=== PATIENT | female | born 1965 | race African-American/Black ===

== ENCOUNTER 2022-10-12 12:36 | Outpatient (OUT) | payer MEDICARE, MEDICAID, SELFPAY ==
--- NOTE | 2022-10-12 13:44 | CONS_ITS ---
CONSULTATION DATE: ??10/12/2022 TO:? [facility] HISTORY:? Patient returns today complaining of 5-7/10 pain in her knees bilaterally, worse on the left than the right side, sharp in character, which increased with activities such as standing, walking and performing transitioning maneuvers.? She reports any kind of weight bearing maneuver is quite painful.? Being sedentary for even short periods of time causes a fair amount of stiffness in the knee joints bilaterally.? Upon ambulating, her stiffness improves, but her pain still persists with weight bearing maneuvers.? She denies any change in bowel and bladder habits or new sensorimotor changes in the lower extremities EXAM:? Notable for patient having weakness of her right quadriceps, iliopsoas and anterior tibialis.? Depressed right patellar reflex.? Straight leg raise is negative.? She has no consistent with myelopathy involving the lower extremities.? She did have crepitus of both knee joints, surrounding soft tissue tenderness is noted, especially on the left side.? She had a fair amount of spasm of her left hamstring and gastrocnemius muscle.? I could not appreciate any signs consistent with ligamental laxity on today?s visit. IMPRESSION:? Our impression is patient has chronic pain secondary to bilateral knee joint pain secondary to osteoarthrosis.? She has an appointment with [facility] in the near future to address the same.? I have asked her to increase the use of Zanaflex 4 mg pills, one-quarter to one-half in the morning and one pill at bedtime.? I have asked her to also continue the use of oxycodone 5 mg b.i.d. p.r.n.? She reports the use of this medication does improve her pain symptoms, improves her quality of life and, at times, her sleep pattern and she denies side effects.? Will see the patient back in the office in approximately three months? time or sooner if needed. As part of providing excellent, safe, comprehensive care, the following was completed at our patient's visit: 1. A medication reconciliation and review to ensure accurate knowledge of current/active medications, including asking our patients to inform us about any [id number] medications or herbal remedies/nutritional supplements/alternative remedies. 2. A review to specifically ensure our patients have had annual screening for: elevated body mass index (BMI, see intake chart for exact total), tobacco use, screening for depression, and screening for unhealthy alcohol use.? When screening is concerning, patients are provided with education and the specific recommendation to discuss the concerning health issue and treatment options with their primary care provider. MEGAN
== END 2022-10-12 12:37 | disposition home or self-care (01) ==
LOC: PM 12:37
PROVIDERS: Visit Provider Anesthesiology Pain Medicine
DX: G89.29 Other chronic pain (principal); M25.561 Pain in right knee; M25.562 Pain in left knee; M17.0 Bilateral primary osteoarthritis of knee
CPT/HCPCS: G0463

== ENCOUNTER 2022-12-07 11:18 | Outpatient (OUT) | payer MEDICARE, MEDICAID, SELFPAY ==
--- NOTE | 2022-12-07 10:41 | P.CN_ITS ---
Consult Note: HPI Data of Consult Patient: known to practice within the last 3 years Requesting Physician: Natalia Lou NP Primary Care Provider: Non-Staff Physician, Consult Narrative Reason for consult: f/u Narrative: Eddie Mckee a pleasant 57 year old female presents for evaluation and management of chronic low back and bilateral knee pain. Patient has been following with medical laboratory specialist who plans to do bilateral TKAs after patient loses 45lbs. Patient is actively working towards weight loss with diet and exercise but is severly limited with activity due to pain. Todays DIXIE 54% with severe pain, pain with lifting, pain with walking, pain preventing her for standing longer than 10 mins, pain impacting social life, pain impacting travel. Patient is currently on a home exercise program and has recently completed PT. Patient would like to discuss alternative approaches to knee pain until she can have surgery cc:: CC: Natalia Lou NP Review of Systems ROS Status of ROS 10 or more systems reviewed and unremarkable except as noted in history and below Musculoskeletal Reports: back pain, joint pain (bilateral knee pain) and limite d range of motion Meds Home Medications and Allergies Home Medications Medication Instructions Recorded Confirmed Type albuterol sulfate 90 mcg/actuation 2 inh inhalation Q6H PRN shortness 10/18/22 10/18/22 History aerosol inhaler (Ventolin HFA) of breath bupropion HCl 150 mg tablet,12 hr 150 mg PO BID 10/18/22 10/18/22 History sustained-release (Wellbutrin SR) calcium carbonate 500 mg-vitamin 1 tab PO BID 10/18/22 10/18/22 History D3 5 mcg (200 unit) tablet (Calcium 500 + D) duloxetine 30 mg capsule,delayed 30 mg PO DAILY 10/18/22 10/18/22 History release (Cymbalta) multivitamin (Daily Multi-Vitamin 1 tab PO DAILY 10/18/22 10/18/22 History tablet) spironolactone 25 mg tablet 25 mg PO DAILY 10/18/22 10/18/22 History tizanidine 4 mg tablet 4 mg PO BEDTIME PRN spasm 10/18/22 10/18/22 History zolpidem 10 mg tablet (Ambien) 10 mg PO BEDTIME 10/18/22 10/18/22 History hydrocodone 5 mg-acetaminophen 325 1 tab PO BID PRN pain #60 tabs 12/07/22 Rx mg tablet Allergies Allergy/AdvReac Type Severity Reaction Status Date / Time Penicillins Allergy Verified 10/18/22 15:51 prochlorperazine Allergy Verified 10/18/22 15:51 [From Compazine] Exam Constitutional Documenting provider has reviewed patient's vital signs: yes Common normals: no apparent distress, oriented x3, healthy appearing, alert and well nourished General appearance: cooperative Nutritional appearance: obese HENMT Common normals: normocephalic, hearing grossly normal bilaterally and moist oral mucous membranes Head and scalp: normocephalic Eye Common normals: PERRL Pupil: PERRL Neck & C-Spine Common normals: full ROM General: normal visual inspection Chest Common normals: inspection of chest normal Respiratory Common normals: normal respiratory effort, no retractions and no use of accessory muscles Back & Pelvis Thoracic spine/upper back: ROM limited, pain with ROM and paraspinal muscle tenderness Lumbar spine/lower back: ROM limited, pain with ROM and paraspinal muscle tenderness Sacroiliac joints: SI joints normal Extremity Common normals: normal to inspection Right lower extremity: knee joint (increase in diameter, pain and limited ROM) Left lower extremity: knee joint (increase in diameter, pain and limited ROM) Neuro Common normals: oriented x3, CN's II-XII intact bilaterally, moves all extremities, no focal motor deficits, no sensory deficits noted and deep tendon reflexes 2+ bilaterally Sensorium/orientation: alert Speech: speech normal Gait (neuro): antalgic Motor exam: no movement abnormalities noted and strength abnormal (3/5 BLE strength, no change in sensation) Psych Common normals: mental status grossly normal, thought process normal, cooperative, affect normal, speech normal and activity/motor behavior normal Speech: normal speech Thought process: normal thought process Results Additional Findings Additional findings: I have checked an OARRS report on this patient today and there are no aberrancies noted in the prescribing history.?? A drug screen was completed and reviewed within the last year, and if there has not been a drug screen completed we ordered one today to monitor higher risk, state monitored pain medication use. Assessment and Plan Assessment and Plan (1) Knee osteoarthritis: (2) Lumbar spondylosis: Assessment and Plan: -plan to repeat L2-3 L4-5 RFA in the future as back pain has returned, pt would like to focus on knee pain at this time (3) Chronic pain syndrome: Assessment and Plan: -encouraged discussion of increasing duloxetine with PCP as this medication has shown pain relief properties at higher doses (4) Muscle spasm: Assessment and Plan: continue tizanidine 4mg PRN muscle spasms (5) Chronic prescription opiate use: Assessment and Plan: I feel these medications are improving the patient's quality of life and allow them to tolerate activities of daily living as well as participate in recreational activity.? The patient does not report intolerable side effects. The patient is NOT opioid naive and non-pharmacologic and non-opioid treatment has failed to significantly relieve the patient's pain and improve functionality. The patient has a diagnosis that is related to a somatic or visceral pain etiology.?? I reviewed with the patient the potential risks and side effects with the use of?opioid medications including but not limited to respiratory depression,?sedation, and even . I verified the patient has access to naloxone should? these effects occur. I advised the patient to avoid the use of any other?sedation substances including alcohol, THC, and benzodiazepines while? taking opioid medications due to the risk of compounding side effects and?detrimental outcomes. I reviewed the FITTING ROOM [employer]OCIATE, pain treatment agreement, urine?drug screen, and opioid start talking forms. The patient was advised to let? their family know they had Naloxone in case they would need to administer the medication.? -rotate from oxycodone-acetaminophen to hydrocodone-acetaminophen 5-325mg BID PRN Pain, do not use with ambien -naloxone discussed and prescribed -will discuss effects of rotation at next office visit, with hope to see more pain benefit (6) Obesity: Assessment and Plan: Patient actively working towards weight loss, meeting with a merchandise flow team member and doing water therapy Patient to lose 45lbs to be a candidate for bilateral knee surgery The patient was counseled that proper dietary changes and consistent participation in a home exercise plan can lead to weight loss. Weight loss can help to improve functionality in patients with chronic pain.? Plan -bilateral genicular NB with intent of thermal RFA as patient is not a candidate for knee surgery at this time due to weight, pt actively working towards weight loss. Continue home exercise program. Recent steroid injections in knees have not provided pain relief. f/u after procedure
== END 2022-12-07 11:19 | disposition home or self-care (01) ==
PROVIDERS: Visit Provider Nurse Practitioner
DX: M17.0 Bilateral primary osteoarthritis of knee (principal); M47.816 Spondylosis without myelopathy or radiculopathy, lumbar region; G89.4 Chronic pain syndrome; Z79.899 Other long term (current) drug therapy; M62.838 Other muscle spasm
CPT/HCPCS: G0463

== ENCOUNTER 2023-02-14 07:17 | Outpatient (OUT) | payer MEDICARE, MEDICAID, SELFPAY | END 2023-02-14 07:33 | disposition home or self-care (01) | PROVIDERS: Visit Provider Nurse Practitioner | DX: Z76.0 Encounter for issue of repeat prescription (principal) ==

== ENCOUNTER 2023-03-13 09:31 | Day surgery (SDC) | payer MEDICARE, MEDICAID, SELFPAY ==
[2023-03-13 10:20] VITALS: BP 158/84; PULSE 91; RESP 16; TEMP 36.2; O2SAT 98
[2023-03-13] MEDS: BUPIVACAINE HCL 0.25% PF 25 MG/10 ML VIAL INJ (11:08)
[2023-03-13 11:13] VITALS: BP 141/64; PULSE 94; RESP 18; O2SAT 100
[2023-03-13 11:19] VITALS: BP 125/57; PULSE 85; RESP 22; O2SAT 100
--- NOTE | 2023-03-13 11:57 | P.ON_ITS ---
Date of procedure: 03/13/23 Pre-op diagnosis: Bilateral knee osteoarthritis Post-op diagnosis: same as pre-op Procedure: Bilateral Genicular Nerve Block PREOPERATIVE DIAGNOSIS: Pain secondary to knee pain, osteoarthritis, osteoarthrosis/degenerative joint disease. POSTOPERATIVE DIAGNOSIS--the same. SOLUTION USED FOR INJECTION: Marcaine 0.25%. IMMEDIATE COMPLICATIONS: None. PROCEDURE: After informed consent was obtained from the patient, brought to the OR, placed in the supine position. Skin overlying the area was prepped and draped in sterile fashion. Subsequently, a 25 gauge spinal needle was inserted over the inferior medial genicular nerve. Landmarks were identified under fluoroscopy. Needle tip advanced until the desired location was achieved, at which point we ruled out intravascular or intraneural needle tip placement. 1 mL of solution was injected. This procedure was performed in a similar fashion at the superior medial and superior lateral branches of the genicular nerve. Throughout the procedure, no indication of intravascular or intraneural needle t ip placement or injection. Post procedurally, needle removed. Patient tolerated the procedure with no complications, transferred to the recovery room in stable condition. She will be discharged home after meeting criteria. Patient informed to keep a pain diary for the first two hours post procedurally. Anesthesia: Local Surgeon: Jessica Hernandez Condition: stable
== END 2023-03-13 11:27 | disposition home or self-care (01) ==
LOC: SURGOUT 09:33
PROVIDERS: Visit Provider Anesthesiology Pain Medicine
DX: M17.0 Bilateral primary osteoarthritis of knee (principal); M25.561 Pain in right knee; M25.562 Pain in left knee
CPT/HCPCS: 64454

== ENCOUNTER 2023-03-29 10:58 | Outpatient (OUT) | payer MEDICARE, MEDICAID, SELFPAY ==
--- NOTE | 2023-03-29 11:03 | P.CN_ITS ---
Consult Note: HPI Data of Consult Patient: known to practice within the last 3 years Requesting Physician: Natalia Lou NP Primary Care Provider: Non-Staff Physician, MD Consult Narrative Reason for consult: f/u Narrative: Eddie Mckee a pleasant 57 year old female presents for evaluation and management of chronic bilateral knee pain. Patient has OA of bilateral knees and is pending surgical intervention but is working towards weight loss before she can have this surgery. Patient has underwent bilateral genicular nerve blocks with greater than 80% pain relief and functional improvement immediately after and hours following, tapering down to 50% cc:: CC: Natalia Lou NP Review of Systems ROS Status of ROS 10 or more systems reviewed and unremark able except as noted in history and below Musculoskeletal Reports: back pain, extremity pain and joint pain Meds Home Medications and Allergies Home Medications Medication Instructions Recorded Confirmed Type albuterol sulfate 90 mcg/actuation 2 inh inhalation Q6H PRN shortness 10/18/22 03/13/23 History aerosol inhaler (Ventolin HFA) of breath bupropion HCl 150 mg tablet,12 hr 150 mg PO BID 10/18/22 03/13/23 History sustained-release (Wellbutrin SR) calcium carbonate 500 mg-vitamin 1 tab PO BID 10/18/22 03/13/23 History D3 5 mcg (200 unit) tablet (Calcium 500 + D) duloxetine 30 mg capsule,delayed 30 mg PO DAILY 10/18/22 03/13/23 History release (Cymbalta) multivitamin (Daily Multi-Vitamin 1 tab PO DAILY 10/18/22 03/13/23 History tablet) spironolactone 25 mg tablet 25 mg PO DAILY 10/18/22 03/13/23 History tizanidine 4 mg tablet 4 mg PO BEDTIME PRN spasm 10/18/22 03/13/23 History zolpidem 10 mg tablet (Ambien) 10 mg PO BEDTIME 10/18/22 03/13/23 History hydrocodone 5 mg-acetaminophen 325 1 tab PO BID PRN pain #60 tabs 12/07/22 03/13/23 Rx mg tablet naloxone 4 mg/actuation nasal 4 mg intranasal Q3M PRN opioid 12/07/22 03/13/23 Rx spray (Narcan) overdose #2 ea oxycodone-acetaminophen 5 mg-325 1 tab PO BID PRN pain #60 tabs 12/14/22 1 05/13/22 Rx mg tablet (Percocet) oxycodone-acetaminophen 5 mg-325 1 tab PO BID PRN pain #60 tabs 01/17/23 03/13/23 Rx mg tablet (Percocet) oxycodone-acetaminophen 5 mg-325 1 tab PO BID PRN pain #60 tabs 02/14/23 03/13/23 Rx mg tablet (Percocet) oxycodone-acetaminophen 5 mg-325 1 tab PO DAILY PRN pain #30 tabs 03/20/23 Rx mg tablet (Percocet) oxycodone-acetaminophen 5 mg-325 1 tab PO BID PRN pain #60 tabs 03/27/23 Rx mg tablet (Percocet) Allergies Allergy/AdvReac Type Severity Reaction Status Date / Time Penicillins Allergy Verified 10/18/22 15:51 prochlorperazine Allergy Verified 10/18/22 15:51 [From Compazine] Exam Constitutional Documenting provider has reviewed patient's vital signs: yes Common normals: no apparent distress, oriented x3, healthy appearing, alert and well nourished General appearance: cooperative Nutritional appearance: obese HENMT Common normals: normocephalic, hearing grossly normal bilaterally and moist oral mucous membranes Head and scalp: normocephalic Eye Common normals: PERRL Pupil: PERRL Neck & C-Spine Common normals: full ROM General: normal visual inspection Chest Common normals: inspection of chest normal Respiratory Common normals: normal respiratory effort, no retractions and no use of accessory muscles Back & Pelvis Thoracic spine/upper back: ROM limited, pain with ROM and paraspinal muscle tenderness Lumbar spine/lower back: ROM limited, pain with ROM and paraspinal muscle tenderness Sacroiliac joints: SI joints normal Extremity Common normals: normal to inspection Right lower extremity: knee joint (increase in diameter, pain and limited ROM) Left lower extremity: knee joint (increase in diameter, pain and limited ROM) Neuro Common normals: oriented x3, CN's II-XII intact bilaterally, moves all extremities, no focal motor deficits, no sensory deficits noted and deep tendon reflexes 2+ bilaterally Sensorium/orientation: alert Speech: speech normal Gait (neuro): antalgic Motor exam: strength 5/5 throughout and no movement abnormalities noted Psych Common normals: mental status grossly normal, thought process normal, cooperative, affect normal, speech normal and activity/motor behavior normal Speech: normal speech Thought process: normal thought process Results Additional Findings Additional findings: I have checked an OARRS report on this patient today and there are no aberrancies noted in the prescribing history.?? A drug screen was completed and reviewed within the last year, and if there has not been a drug screen completed we ordered one today to monitor higher risk, state monitored pain medication use. As part of providing excellent, safe, comprehensive care, the following was completed at our patient's visit: 1. A medication reconciliation and review to ensure accurate knowledge of current/active medications, including asking our patients to inform us about any [id number] medications or herbal remedies/nutritional supplements/altern ative remedies. 2. A review to specifically ensure our patients have had annual screening for: elevated body mass index (BMI), tobacco use, screening for depression, and screening for unhealthy alcohol use. When screening is concerning, patients are provided with education and the specific recommendation to discuss the concerning health issue and treatment options with their primary care provider. Assessment and Plan Assessment and Plan (1) Knee osteoarthritis: Qualifiers: Osteoarthritis type: primary Laterality: bilateral Qualified Code(s): M17.0 - Bilateral primary osteoarthritis of knee (2) Chronic prescription opiate use: (3) Lumbar spondylosis: (4) Chronic pain syndrome: (5) Muscle spasm: (6) Obesity: Qualifiers: Obesity type: due to excess calories Obesity classification: unspecified obesity classification Serious obesity comorbidity presence: unspecified whether serious comorbidity present Qualified Code(s): E66.09 - Other obesity due to excess calories Plan difficult to assess pain at today's visit, patient has pain throughout whole back and hips, bilateral knees. hyperalgesia to touch continue current medications continue with weight loss efforts working towards knee surgery did not have sustained response to lumbar RFAs in the past no recent imaging, patient can discuss her pain and care plan with Dr Hernandez at f/u visit
== END 2023-03-29 10:59 | disposition home or self-care (01) ==
LOC: PM 10:59
PROVIDERS: Visit Provider Nurse Practitioner
DX: M17.0 Bilateral primary osteoarthritis of knee (principal); Z79.891 Long term (current) use of opiate analgesic; M47.816 Spondylosis without myelopathy or radiculopathy, lumbar region; G89.4 Chronic pain syndrome; M62.838 Other muscle spasm; E66.09 Other obesity due to excess calories
CPT/HCPCS: G0463

== ENCOUNTER 2023-04-12 07:30 | Day surgery (SDC) | payer MEDICARE, MEDICAID, SELFPAY ==
[2023-04-12 07:40] VITALS: BP 150/86; PULSE 100; RESP 18; TEMP 36.3; O2SAT 97
[2023-04-12] MEDS: 0.9 % SODIUM CHLORIDE 500 ML IV (07:47)
[2023-04-12] MEDS: BUPIVACAINE HCL 0.25% PF 25 MG/10 ML VIAL 4 ML INJ (08:43)
[2023-04-12] MEDS: LIDOCAINE HCL 2% 400 MG/20 ML MDV 5 ML INJ (08:44)
[2023-04-12] MEDS: METHYLPREDNISOLONE ACETATE 40 MG/ML VIAL INJ (08:44)
[2023-04-12 08:46] VITALS: BP 144/91; PULSE 89; RESP 17; TEMP 36.3; O2SAT 98
[2023-04-12 08:47] VITALS: BP 147/88; PULSE 90; RESP 16; TEMP 36.3; O2SAT 98
--- NOTE | 2023-04-12 09:11 | W.PM.PROCNOT ---
Date of procedure: 04/12/23 Pre-op diagnosis: Right knee pain/osteoarthritis Post-op diagnosis: same as pre-op Procedure: Right knee genicular nerve Radiofrequency ablation Under fluoroscopic guidance Rhizotomy was created using radio frequency ablation at 80?C for 90 seconds 1 to 2 lesions created at each site. Post lesioning injection of 2 mL each of 0.25% Marcaine and 2% lidocaine with Depo-Medrol 40mg. 0.5 to 1 mL injected at each site Anesthesia local 2% lidocaine for local anesthetic Timeout process compliant After informed consent obtained.Patient brought to the procedure room placed in the supine position skin overlying the area was prepped and draped in a sterile fashion using betadine. 25 gauge needle was used to create a skin wheal over each of the targeted areas utilizing 2% lidocaine. A rhizotomy needle with a 10 mm active tip was inserted over each of the anesthetized areas and directed towards each of the genicular nerves accomplished under fluoroscopic guidance. after encountering the same we had positive sensory stimulation, negative motor stimulation was noted. lesions were then created. Post lesioning, steroid solution was injected needles removed. Patient was transferred to recovery room in stable condition to be discharged home after meeting criteria. Anesthesia: MAC Surgeon: Jessica Hernandez Condition: stable
--- OUTSIDE RECORDS SUMMARY | 2023-04-12 10:24 | XMS_ITS | CCD ---
Author Name Unknown Address [address] [place] [address] Organization [facility] Care Team Providers Care Deli Clerk Name Role Phone ELGAFY, HOMERO K Unavailable Unavailable ELGAFY, HOMERO K Unavailable Unavailable IMM, СВЕТЛАНА P Unavailable Unavailable IMM, СВЕТЛАНА P Unavailable Unavailable ELGAFY, HOMERO K Unavailable Unavailable ELGAFY, HOMERO K Unavailable Unavailable SELF, REFERRED Unavailable Unavailable IMM, СВЕТЛАНА P Unavailable Unavailable Imm, Светлана Carlisle Unavailable Unavailable VITA KING Unavailable Unavaila KALA Ramires Primary Care Physician [phone] GEMA ., DR CADENCE Hsu Attending Unavailable LUKE ., DR CADENCE Hsu Admitting Unavailable PETERS ., [place] Consulting [facility] Consulting Unava ilable LUKE ., DR CADENCE Hsu Attending Unavailable [facility] PETERS ., [place] Consulting Unavailable LUKE ., DR CADENCE Hsu Admitting [facility]available [facility] EDITH, DR SOTOMAYOR Attending Unavailable EDITH, DR SOTOMAYOR Admitting Unavailable PAY ., DR GRIMM Consulting Unavailable EDITH, DR SOTOMAYOR Consulting Unavailable TROTTI, GIROLAMO Consulting [facility]available [facility] MARKER ., DR MENDOZA Attending Unavailable MARKER ., DR MENDOZA Admitting Unavailable MARKER ., DR MENDOZA Consulting Unavailable RISHABH MORENO Consulting [facility]available [facility] PETERS ., [place] Consulting Unavailable LUKE ., DR CADENCE Hsu Admitting Unavailable LUKE ., DR CADENCE Hsu Attending Unavailable [facility] Un[facility] PETERS ., [place] Consulting Unavailable LUKE ., DR CADENCE Hsu Attending Unavailable LUKE ., DR CADENCE Hsu Admitting Unavailable LUKE ., DR CADENCE Hsu Consulting Unavailable [facility] LUKE ., DR CADENCE Hsu Attending Unavailable LUKE ., DR CADENCE Hsu Admitting Unavailable [facility] LORRAINE .[place] Consulting Unavailable LUKE ., DR CADENCE Hsu Attending Unavailable LUKE ., DR CADENCE Hsu Admitting Unavailable LUKE ., DR CADENCE Hsu Consulting Unavailable LUKE ., DR CADENCE Hsu Attending Unavailable [facility] LUKE ., DR CADENCE Hsu Admitting Unavailable [facility] LAKSHMIPATHY ., NARENDRANATH Admitting Emmanuelle vailable LAKSHMIPATHY ., NARENDRANATH Attending Emmanuelle vailable Kala Conte Primary Care Provider Judson White Unavailable Unavailable BEATA, KALA BLANCHARD Primary Care Unavailable JAMIE YAÑEZ Attending Unavailabl e CONTE, KALA SANTO Primary Care Unavailable JAMIE YAÑEZ Referring Unavailabl e Adamowicz II, Aníbal J Admitting Unavaila ble Adamowicz II, Aníbal J Attending Unavaila ble Conte, Kala Primary Care Unavailable Conte, Kala Referring Unavailable Timmis, Christine H Referring Unavailable Timmis, Christine H Attending Unavailable Timmis, Christine H Admitting Unavailable Allergies Allergy Classification Reported Allergen(s) Allergy Type Date of Onset Reaction(s) Facility (1 source) penicillin Drug Allergy 6 [facility] (4 sources) prochlorperazine; Translations: [Compazine] Drug Allergy 4 [facility] (10 sources) Penicillins; Translations: [penicillins] Drug allergy 4 Eruption of skin (disorder), Hives [facility] (4 sources) Prochlorperazine; Translations: [prochlorperazine] Drug Allergy 2 Unknown (qualifier value), Eruption of skin (disorder) [facility] (4 sources) Prochlorperazine; Translations: [PROCHLORPERAZINE EDISYLATE] Drug Allergy 4 Mental Status Change [facility] [place] (1 source) Prochlorperazine Drug Allergy 2 [facility] Repository Medications Current Medications Medication Drug Class(es) Dates Sig (Normalized) Sig (Original) acetaminophen 325 mg / oxyCODONE hydrochloride 5 mg oral tablet (6 sources) Opioid Agonist Start: 04-11-2017 End: 01-20-2021 take 1 tablet by mouth twice daily Percocet 5 mg-325 mg oral tablet 1 tab(s), Oral, BID, Refill(s) 0 Start Date: 01/25/21 Status: Ordered take 1 tablet by shakir th every six hours as needed oxyCODONE-acetaminophen 5-325 mg tablet Take 1 tablet by mouth every 6 hours as needed. 0 Active Comment on above: Take 1 tablet by shakir th every 6 hours as needed. sensor 200 actuat albuterol 0.09 mg/actuat dry powder inhaler (1 source) beta2-Adrenergic Agonist Start: 1 Albuterol Sulfate Active 2 INH INHALATION Four times daily January 20, 2021 12:00am 12 hr buPROPion hydrochloride 150 mg extended release oral tablet (2 sources) Aminoketone Start: 1 take 1 tablet by mouth twice daily Wellbutrin SR 150 mg Tab-ER 150 mg = 1 tab(s), Oral, BID, Refills(s) 0 Start Date: 01/25/21 Status: Ordered Start: 01-20-2021 take 1 tablet by shakir th twice daily Bupropion Hcl (Wellbutrin Xl) 150 mg Tablet Extended Release 24 Hr Active 150 MG PO Twice daily January 20, 2021 12:00am calcium carbonate 1250 mg oral tablet (1 source) Start: 01-25-2021 take 1 tablet by mouth twice daily Os-Braden 500 oral tablet 1,250 mg = 1 tab(s), Oral, BID, Refills(s) 0 Start Date: 01/25/21 Status: Ordered Calcium Carbonate-Vitamin D3 (Os-Braden 500 + D3) 500 mg(1,250mg) -200 unit Tablet (1 source) Start: 01-20-2021 take 1 tablet by mouth twice daily Calcium Carbonate-Vitamin D3 (Os-Braden 500 + D3) 500 mg(1,250mg) -200 unit Tablet Active 1 TAB PO Twice daily January 20, 2021 12:00am Cymbalta 30 mg Cap-DR (1 source) Start: 01-25-2021 take 1 capsule by mouth once daily Cymbalta 30 mg Cap-DR 30 mg, Oral, Daily, Refills(s) 0 Start Date: 01/25/21 Status: Ordered DULoxetine 30 mg delayed release oral capsule (1 source) Serotonin and Norepinephrine Reuptake Inhibitor Start: 01-20-2021 take 1 capsule by mouth once daily Duloxetine (Cymbalta) 30 mg Capsule,Delayed Release(Dr/Ec) Active 30 MG PO Daily January 20, 2021 12:00am estradiol 0.1 mg/g vaginal cream (1 source) Start: 04-14-2021 estradiol 0.1 mg/g vaginal cream See Instructions, apply pea-size amount with fingertips vaginally nightly x 2 wks then 3x per week thereafter, # 42.5 gm, Refills(s) 11, Pharmacy: [id number], 163, cm, 04/14/21 10:37:00 EST, Height/Length Dosing, 148, kg, 04/14/21 10:37:00... Start Date: 04/14/21 Status: Ordered 120 actuat fluticasone propionate 0.22 mg/actuat metered dose inhaler (1 source) Corticosteroid Start: 01-25-2021 take 1 puff(s) by inhalation twice daily Flovent HFA 220 Aerosol = 1 puff(s), Inhalation, BID, Refills(s) 0 Start Date: 01/25/21 Status: Ordered fluticasone 0.05 mg/inh Nasal [place] (1 source) Start: 04-14-2021 fluticasone 0.05 mg/inh Nasal [place] Refill(s) 0 Start Date: 04/14/21 Status: Ordered ibuprofen 800 mg oral tablet (4 sources) Nonsteroidal Anti-inflammatory Drug Start: 04-11-2017 Ibuprofen Active 800 MG PO As Directed April 11, 2017 1:00am Comment on above: Take 800 mg by mouth every 6 hours as needed. Multivitamin (Multiple Vitamin) Tablet (1 source) Start: 01-20-2021 take 1 tablet by mouth twice daily Multivitamin (Multiple Vitamin) Tablet Active 1 TAB PO Twice daily January 20, 2021 12:00am Multivitamin, Therapeutic w/ Minerals (1 source) Start: 01-25-2021 take 1 tablet by mouth once daily Multivitamin, Therapeutic w/ Minerals 1 tab(s), Oral, Daily, Refill(s) 0 Start Date: 01/25/21 Status: Ordered tiZANidine 4 mg oral capsule (2 sources) Central alpha-2 Adrenergic Agonist Start: 01-25-2021 take 1 capsule by mouth once daily tizanidine 4 mg oral capsule 4 mg = 1 cap(s), Oral, Daily, Refills(s) 0 Start Date: 01/25/21 Status: Ordered Start: 01-20-2021 take 4 mg by mouth o nce daily at bedtime Tizanidine Active 4 MG PO Daily at bedtime January 20, 2021 12:00am zolpidem tartrate 10 mg oral tablet (5 sources) gamma-Aminobutyric Acid-ergic Agonist Start: 04-11-2017 take 1 tablet by mouth once daily at bedtime as needed for sleep zolpidem 10 mg oral tablet 10 mg = 1 tab(s), Oral, Once a day (at bedtime), PRN for sleep, Refills(s) 0 Start Date: 01/25/21 Status: Ordered Comment on above: Take by mouth at bedtime as needed. Completed/Discontinued Medications Medication Drug Class(es) Dates Sig (Normalized) Sig (Original) baclofen 10 mg oral tablet (3 sources) gamma-Aminobutyric Acid-ergic Agonist Start: 08-07-2017 baclofen (LIORESAL) 10 mg tablet Take 10 mg by mouth. 0 08/07/2017 Active Comment on above: Take 10 mg by mouth. 5 ml bupivacaine hydrochloride 5 mg/ml injection (2 sources) Amide Local Anesthetic Start: 11-20-2022 End: 11-20-2022 BUPivacaine (PF) 0.5 % (5 mg/mL) 4 mL injection calcium carbonate 1250 mg / cholecalciferol 200 unt oral tablet (3 sources) Vitamin D Start: 08-07-2017 take 1 tablet by mouth once OS-BRADEN 500+D 500 mg(1,250mg) -200 unit per tablet Take 1 tablet by mouth. 0 08/07/2017 Active Comment on above: Take 1 tablet by shakir th. citalopram 10 mg oral tablet (3 sources) Serotonin Reuptake Inhibitor take 1 tablet by mouth once daily citalopram hydrobromide (CELEXA) 10 mg tablet Take 10 mg by mouth once daily. 0 Active Comment on above: Take 10 mg by mouth once daily. dicyclomine hydrochloride 20 mg oral tablet (3 sources) Anticholinergic Start: 05-30-2017 take 1 tablet by mouth every six hours dicyclomine (BENTYL) 20 mg tablet Take 20 mg by mouth every 6 hours. 0 05/30/2017 Active Comment on above: Take 20 mg by mouth every 6 hours. furosemide 40 mg oral tablet (1 source) Loop Diuretic Start: 04-11-2017 End: 01-20-2021 take 40 mg by mouth twice daily Furosemide Discontinued 40 MG PO Twice daily April 11, 2017 1:00am January 20, 2021 10:59am 10 ml lidocaine hydrochloride 10 mg/ml injection (2 sources) Antiarrhythmic, Amide Local Anesthetic Start: 11-20-2022 End: 11-20-2022 lidocaine (PF) 10 mg/mL (1 %) 4 mL injection (XYLOCAINE) spironolactone 25 mg oral tablet (5 sources) Aldosterone Antagonist Start: 07-28-2017 take 1 tablet by mouth once daily spironolactone (ALDACTONE) 25 mg tablet Take 25 mg by mouth once daily. 0 07/28/2017 Active Start: 04-11-2017 take 25 mg by mouth twice daily Spironolactone Active 25 MG PO Twice daily April 11, 2017 1:00am Comment on above: Take 25 mg by mouth once daily. traZODone hydrochloride 50 mg oral tablet (3 sources) Serotonin Reuptake Inhibitor Start: 06-14-2017 traZODone (DESYREL) 50 mg tablet Take 50 mg by mouth. 0 06/14/2017 Active Comment on above: Take 50 mg by mouth. 1 ml triamcinolone acetonide 40 mg/ml injection (2 sources) Corticosteroid Start: 11-20-2022 End: 11-20-2022 triamcinolone acetonide 80 mg injection (KeNALog 40) WOMEN'S ONE DAILY 18 mg iron-400 mcg-500 mg Ca tab (3 sources) Start: 06-14-2017 WOMEN'S ONE DAILY 18 mg iron-400 mcg-500 mg Ca tab Take by mouth. 0 06/14/2017 Active Comment on above: Take by mouth. Problems Active Problems Problem Classification Problem Date Documented Da te Episodic/Chronic Abdominal pain (1 source) Right lower quadrant pain; Translations: [Right lower quadrant pain] 01-24-2021 Episodic Asthma (3 sources) Asthma; Translations: [Unspecified asthma with (acute) exacerbation] Onset: 04-20-2022 01-25-2021 Chronic Chronic kidney disease (1 source) Chronic kidney disease, unspecified; Translations: [CHRONIC KIDNEY DISEASE UNSPECIFIED] Onset: 09-06-2022 Chronic Deficiency and other anemia (2 sources) Anemia; Translations: [Anemia, unspecified] 01-25-2021 Episodic Deficiency and other anemia (1 source) Iron deficiency anemia; Translations: [Iron deficiency anemia, unspecified] 03-25-2021 Episodic Diabetes mellitus with complications (1 source) Type 2 diabetes mellitus with diabetic chronic kidney disease; Translations: [TYPE 2 DM W/DIABETIC CKD] Onset: 09-06-2022 Chronic Essential hypertension (1 source) Hypertensive disorder 01-25-2021 Chronic Genitourinary symptoms and ill-defined conditions (2 sources) Genuine stress incontinence; Translations: [Intermittent urinary incontinence] 04-14-2021 Chronic Genitourinary symptoms and ill-defined conditions (1 source) Proteinuria 04-14-2021 Episodic Headache; including migraine (1 source) Migraine 01-25-2021 Chronic Mood disorders (2 sources) Depressive disorder; Translations: [Major depressive disorder] 01-25-2021 Chronic Osteoarthritis (7 sources) Arthritis; Translations: [Bilateral primary osteoarthritis of knee] Onset: 01-23-2022 01-25-2021 Chronic Other aftercare (1 source) Other technician terminal and repeater (current) drug therapy; Translations: [OTH FDC CURRENT DRUG THERAPY] Onset: 09-06-2022 Episodic Other gastrointestinal disorders (1 source) Irritable bowel syndrome without diarrhea; Translations: [IRRITABLE BOWEL SYND W/O DIARRHEA] Onset: 09-06-2022 Chronic Other gastrointestinal disorders (1 source) Altered bowel function; Translations: [Other specified symptoms and signs involving the digestive system and abdomen] 01-24-2021 Episodic Other lower respiratory disease (1 source) Shortness of breath; Translations: [SHORTNESS OF BREATH] Onset: 09-06-2022 Episodic Other lower respiratory disease (4 sources) Dyspnea, unspecified; Translations: [DYSPNEA UNSPECIFIED] Onset: 06-08-2022 Episodic Other nervous system disorders (1 source) Other chronic pain; Translations: [Chronic pain of both knees] Onset: 11-20-2022 Chronic Other non-traumatic joint disorders (4 sources) Pain in right knee; Translations: [Pain in joint, lower leg] Onset: 10-21-2021 11-03-2022 Episodic Other non-traumatic joint disorders (2 sources) Pain in left knee; Translations: [PAIN IN LEFT KNEE] Onset: 10-21-2021 Episodic Other nutritional; endocrine; and metabolic disorders (1 source) Obesity 01-25-2021 Chronic Other nutritional; endocrine; and metabolic disorders (1 source) Morbid (severe) obesity due to excess calories; Translations: [MORBID SEVERE OBES D/T EXCESS BRADEN] Onset: 09-06-2022 Chronic Other nutritional; endocrine; and metabolic disorders (1 source) Body mass index (BMI) 50.0-59.9, adult; Translations: [BODY MASS INDEX BMI 50.0-59.9 ADULT] Onset: 09-06-2022 Chronic Other nutritional; endocrine; and metabolic disorders (1 source) Severe obesity; Translations: [Morbid (severe) obesity due to excess calories] 11-20-2022 Chronic Other upper respiratory disease (1 source) Allergic rhinitis 01-25-2021 Chronic Residual codes; unclassified (1 source) Insomnia 01-25-2021 Episodic Residual codes; unclassified (1 source) Peripheral edema 01-25-2021 Episodic Residual codes; unclassified (1 source) Other specified postprocedural states; Translations: [OTH SPECIFIED POSTPROCEDURAL STATES] Onset: 06-26-2022 Episodic Spondylosis; intervertebral disc disorders; other back problems (9 sources) Spondylosis without myelopathy or radiculopathy, lumbar region; Translations: [Other intervertebral disc degeneration, lumbar region] Onset: 10-25-2016 01-25-2021 Chronic Unclassified (2 sources) Unknown / UNK(Unknown) Onset: 10-25-2016 Unclassified (1 source) Other chronic pain / G89.29(ICD-10) Onset: 10-22-2016 Unclassified (2 sources) Low back pain / M54.5(ICD-10) Onset: 10-22-2016 Unclassified (1 source) Localized edema / R60.0(ICD-10) Onset: 10-22-2016 Unclassified (1 source) Allergy status to penicillin / Z88.0(ICD-10) Onset: 10-22-2016 Unclassified (1 source) Localized swelling, mass and lump, lower limb, bilateral / R22.43(ICD-10) Onset: 10-22-2016 Unclassified (1 source) Asymptomatic microscopic hematuria 04-14-2021 Unclassified (3 sources) COUGH, UNSPECIFIED; Translations: [COUGH, UNSPECIFIED] Onset: 04-20-2022 Unclassified (1 source) CHRN KIDNEY DISEASE STG 3 UNSP; Translations: [CHRN KIDNEY DISEASE STG 3 UNSP] Onset: 04-20-2022 Urinary tract infections (1 source) Recurrent urinary tract infection 04-14-2021 Episodic Past or Other Problems Problem Classification Problem Date Documented Da te Episodic/Chronic Benign neoplasm of uterus (3 sources) Uterine leiomyoma; Translations: [Leiomyoma of uterus, unspecified] Onset: 09-01-2013 09-01-2013 Episodic Deficiency and other anemia (1 source) Anemia, unspecified; Translations: [Anemia, unspecified] Onset: 10-07-2021 Episodic Deficiency and other anemia (1 source) Iron deficiency anemia, unspecified; Translations: [Iron deficiency anemia, unspecified] Onset: 10-07-2021 Episodic Other connective tissue disease (1 source) Arthrodesis status; Translations: [ARTHRODESIS STATUS] Onset: 10-25-2016 Episodic Other upper respiratory infections (1 source) Acute upper respiratory infection, unspecified; Translations: [ACUTE UP RESPIRATORY INFECTION UNS] Onset: 04-20-2022 Episodic Spondylosis; intervertebral disc disorders; other back problems (5 sources) Muscle spasm of back; Translations: [Intervertebral disc disorders with radiculopathy, lumbar region] Onset: 10-10-2021 Episodic Unclassified (1 source) COUGH, UNSPECIFIED; Translations: [COUGH, UNSPECIFIED] Onset: 09-04-2022 Results Test Name Value Interpretation Reference Range Facility Physician Referralon 023 Physician Referral [id number] Normal [facility] CNOVon 11-20-2022 CNOV Office Visit (ORTHMN ) FREDI MCKEE ([id number]) 1965 F U[place] Date Time Provider Department 11/20/22 10:00 AM JAMIE YAÑEZ During your visit today, we recorded the following information about you: Weight Height 149.1 kg 1.626 m Jamie Yañez PA-C 11/20/2022 4:50 PM Signed CONSULT ORTHOPAEDIC: KNEE PRIMARY CARE PHYSICIAN: Kala Conte REFERRING PROVIDER: No referring provider defined for this encounter. ASSESSMENT AND PLAN Impression: Bilateral Knee Severe Degenerative Osteoarthritis, Primary Obesity, BMI 56.40 Fredi is a 57 yo female with chronic bilateral knee pain and radiographic evidence of severe knee OA. We discuss maintaining conservative therapies until her health is better optimized in respect to her weight. She has worked with PCP in the past. Her Lbp is a barrier to exercise. She does not work with a urologist md. We discuss our Get Ready program. She is in agreement to this. We also discuss conservative therapy. She has had relief with injections in the past (last performed in April). Elected to perform bilateral CSIs. Please see separate procedure note for details. Aftercare discussed. She takes NSAIDs PRN and recommend she continue to use as needed given her recent creatinine. She should not be on NSAIDs prolonged. Physical therapy order has also been placed. After discussion with Fredi Mckee, continued non-operative management of physical therapy, injection(s), and referral to Get Ready program was chosen. The patient currently has had six months of unsuccessful non-operative treatment as outlined in the HPI below. The patient has been ordered: Physical therapy CONSULTS: Get Ready Program for weight management assistance. ACTIVE PROBLEM LIST Fibroid Uterus SUBJECTIVE CHIEF COMPLAINT: Knee Pain HPI: Fredi Mckee is a 57 year old patient here for evaluation and management of bilateral knee pain. Fredi Mckee has had progressive problems with the knee(s) constantly over the past 6 year(s) interfering with activities which include exercise, walking, rising from a sitting position, standing for prolonged periods of time, getting in and out of a car, and climbing stairs. Currently the pain in the joint is rated at 9 out of 10 with moderate activity. The pain is chronic and is located along the inside aspect and in the front. The pain is described as aching and severe. Relieving factors include rest. There is no specific incident that brought about this pain. Fredi Mckee also complains of stiffness. FUNCTIONAL STATUS: Walk a block or two on level ground (2.75 METs) Therapy to date - Ice or Heat: both OTC/Rx Medications (Topical/PO): Topical cream, she has not taken NSAIDs in the last month or so. 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 Fredi's estimated Length of Stay is 2 days (Inpatient candidate). Fredi's 30 day chance of readmission is 2.08%. Readmission Probability 2.08 % (within 30 days following surgery) Estimated LOS 2 days Discharge Disposition Probability D/C to Home 83.07 % D/C to SNF 16.93 % These calculations are based on the following factors: - 57 years of age - sex is not male - BMI of 56.4 kg/m2 - NarxCare score of 421 - 0 hospitalizations in the last 12 months - no history of heart disease - no history of diabetes - no history of COPD - no history of anemia - preoperative ambulation: independent community distances - 1 step(s) to enter home - bed location is on the first floor - bath location is on the first floor - caregiver is occassionally available 2-4 days / week - home is not more than 150 miles away - PROMIS-10 Mental Health T score 41-49 - Marital status: single REVIEW OF SYSTEMS: PAIN ASSESSMENT: See HPI. MUSCULOSKELETAL: See HPI. Risk Factors for Total Joint Arthroplasty (TJA) Obesity High Risk High: BMI > 40 Moderate: BMI 30-40 Normal: BMI < 30 Diabetes normal High: A1C > 8 Moderate: A1C 7-8 Normal: A1C < 7 Smoking normal High: Current smoker Normal: Non smoker Anemia normal High: Hgb < 11.5 (women) N/A: Hgb >= 11.5 (women) Nutritional Status normal High: Alb<3.4, or prealb<15, or serum transferrin<200, or total lymphocyte count<1500 Normal: normal labs COPD normal High: dx (more content not included)... Normal [facility] XR KNEE 4V AP/PA/LAT/MERCH B ILon 11-20-2022 XR KNEE 4V AP/PA/LAT/MERCH ARON * * *Final Report* * * DATE OF EXAM: Nov 20 2022 8:40AM AOX [id number] - XR KNEE 4V AP/PA/LAT/MERCH ARON / PROCEDURE REASON: multiple diagnoses * * * * Physician Interpretation * * * * HISTORY: Chronic pain of both knees Chronic pain of both knees Chronic pain of both knees . Bilateral knee pain and reduced mobility. Prominent pain at the knee caps. Prominent pain in Right knee. TECHNIQUE: XR KNEE 4V AP/PA/LAT/MERCH ARON COMPARISON: None RESULT: Marked [id number] medial compartment narrowing bilaterally with genu varus deformities. Tricompartmental osteophytes bilaterally. No fractures. No joint effusions. 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 No other significant abnormality. - IMPRESSION: MARKED DEGENERATIVE CHANGES IN THE MEDIAL COMPARTMENTS BILATERALLY Director Of Vendor Management: MARYB Transcribe Date/Time: Nov 20 2022 8:42A Dictated by : ERASMO AVLENTE MD This examination was interpreted and the report reviewed and electronically signed by: ERASMO VALENTE MD on Nov 20 2022 8:43AM EST [id number] Normal [facility] XR KNEE GENERAL 4V AP BOTH/P A BOTH/LAT/MERC BILATERALon 11-20-2022 [facility] [place] BNPon 09-05-2022 Natriuretic peptide B (Bld) [Mass/Vol] 29.0 pg/mL Normal <=900.0 [facility] Comment on above: Performed By: #### H STROPN, BNP, CMP ####[facility] [id number] [place], [place] [address]SnDr. Merlene Carr CBC AUTO DIFFon 09-05-2022 BASO # 0.1 103/ul Normal 0.0-0.1 [facility] Comment on above: Performed By: #### C BC #### [facility] [address] [address] [address] Merlene Carr Basophils/100 WBC (Bld) 0.5 % Normal 0.2-2.0 [facility] Comment on above: Performed By: #### C BC #### [facility] [address] [address] [address] Merlene Carr EO # 0.6 103/ul Normal 0.0-0.7 [facility] Comment on above: Performed By: #### C BC #### [facility] [address] [address] [address] Merlene Carr Eosinophils/100 WBC (Bld) 4.9 % Normal 0.9-7.0 [facility] Comment on above: Performed By: #### C BC #### [facility] [address] [address] [address] Merlene Carr Erythrocyte distribution width (RBC) [Ratio] 14.0 % Normal 11.0-15.0 [facility] Comment on above: Performed By: #### C BC #### [facility] [address] [address] [address] Merlene Carr Hematocrit (Bld) [Volume fraction] 41.4 % Normal 36.0-48.0 [facility] Comment on above: Performed By: #### C BC #### [facility] [address] [address] [address] Merlene Carr Hemoglobin (Bld) [Mass/Vol] 13.0 g/dL Normal 12.0-16.0 [facility] Comment on above: Performed By: #### C BC #### [facility] [address] [address] [address] Merlene Carr IG # 0.05 10e3/ul Critically high 0.00-0.03 [facility] Comment on above: Performed By: #### C BC #### [facility] [address] [address] [address] Merlene Carr IG % 0.4 % Normal 0.0-0.5 [facility] Comment on above: Performed By: #### C BC #### [facility] [address] [place] [address] Dr. Merlene Carr LYMPH # 3.2 103/ul Normal 1.2-3.8 [facility] Comment on above: Performed By: #### C BC #### [facility] [address] [place] [address] Dr. Merlene Carr Lymphocytes/100 WBC (Bld) 27.2 % Normal 20.5-60.0 [facility] Comment on above: Performed By: #### C BC #### [facility] [address] [place] [address] Dr. Merlene Carr MANUAL DIFF REQ NO Normal [facility] Comment on above: Performed By: #### C BC #### [facility] [address] [place] [address] Dr. Merlene Carr MCH (RBC) [Entitic mass] 26.7 pg Normal 26.7-34.0 [facility] Comment on above: Performed By: #### C BC #### [facility] [address] [place] [address] Dr. Merlene Carr MCHC (RBC) [Mass/Vol] 31.4 g/dL Normal 29.9-35.2 [facility] Comment on above: Performed By: #### C BC #### [facility] [address] [place] [address] Dr. Merlene Carr MCV (RBC) [Entitic vol] 85.0 fL Normal 81.0-99.0 [facility] Comment on above: Performed By: #### C BC #### [facility] [address] [place] [address] Dr. Merlene Carr MONO # 1.0 103/ul Critically high 0.3-0.8 [facility] Comment on above: Performed By: #### C BC #### [facility] [address] [address] [address] Merlene Carr Monocytes/100 WBC (Bld) 8.8 % Normal 1.7-12.0 [facility] Comment on above: Performed By: #### C BC #### [facility] [address] [place] [address] Dr. Merlene Carr NEUT # 6.9 103/ul Critically high 1.4-6.5 [facility] Comment on above: Performed By: #### C BC #### [facility] [address] [place] [address] Dr. Merlene Carr Neutrophils/100 WBC (Bld) 58.2 % Normal 43.0-75.0 [facility] Comment on above: Performed By: #### C BC #### [facility] [address] [place] [address] Dr. Merlene Carr Platelet mean volume (Bld) [Entitic vol] 10.2 fL Normal 9.5-13.5 [facility] Comment on above: Performed By: #### C BC #### [facility] [address] [place] [address] Dr. Merlene Carr PLT 392 103/ul Normal 150-450 [facility] Comment on above: Performed By: #### C BC #### [facility] [address] [place] [address] Dr. Merlene Carr RBC 4.87 106/ul Normal 4.20-5.40 [facility] Comment on above: Performed By: #### C BC #### [facility] [address] [place] [address] Dr. Merlene Carr WBC 11.8 103/ul Critically high 4.0-11.0 [facility] Comment on above: Performed By: #### C BC #### [facility] [address] [address] [address] Merlene Carr CULTURE SPUTUMon 09-05-2022 CULTURE SPUTUM Culture Observations : NORMAL RESPIRATORY MARGARITO. FINAL TO FOLLOW. Normal [facility] Comment on above: Performed By: #### S PUTCX #### [facility] [address] [address] [address] Merlene Carr PROF 14(COMP METB)on 023 Albumin [Mass/Vol] 3.6 g/dL Normal 3.4-5.0 [facility] Comment on above: Performed By: #### H STROPN, BNP, CMP ####[facility] [address] [id number] Carr Albumin/Globulin [Mass ratio] 0.9 {ratio} [facility] Comment on above: Performed By: #### H STROPN, BNP, CMP ####[facility] [address] [address]Dr. Merlene Carr ALP [Catalytic activity/Vol] 74 U/L Normal 46-116 [facility] Comment on above: Performed By: #### H STROPN, BNP, CMP ####[facility] [address] [id number]. Merlene Carr ALT [Catalytic activity/Vol] 35 U/L Normal 14-59 [facility] Comment on above: Performed By: #### H STROPN, BNP, CMP ####[facility] [address] [id number]. Merlene Carr Anion gap [Moles/Vol] 16.8 mmol/L Normal [facility] Comment on above: Performed By: #### H STROPN, BNP, CMP ####[facility] [address] [id number]. Merlene Carr AST [Catalytic activity/Vol] 24 U/L Normal 15-37 [facility] Comment on above: Performed By: #### H STROPN, BNP, CMP ####[facility] [address] [id number] Carr Bilirubin [Mass/Vol] 0.2 mg/dL Normal 0.2-1.0 [facility] Comment on above: Performed By: #### H STROPN, BNP, CMP ####[facility] [address] [address]Dr. Merlene Carr Calcium [Mass/Vol] 9.7 mg/dL Normal 8.5-10.1 [facility] Comment on above: Performed By: #### H STROPN, BNP, CMP ####[facility] [address] [address]Dr. Merlene Carr Chloride [Moles/Vol] 106 mmol/L Normal 98-107 [facility] Comment on above: Performed By: #### H STROPN, BNP, CMP ####[facility] [address] [place], [place] [address]Dr. Merlene Carr CO2 [Moles/Vol] 25.3 mmol/L Normal 21.0-32.0 [facility] Comment on above: Performed By: #### H STROPN, BNP, CMP ####[facility] [address] [place], [place] [address]Dr. Merlene Carr Creatinine [Mass/Vol] 1.14 mg/dL Critically high 0.55-1.02 [facility] Comment on above: Performed By: #### H STROPN, BNP, CMP ####[facility] [address] [place], [place] [address]Dr. Merlene Carr EGFR-AF [place]ER 60 mL/min/1.73m2 Normal >=60 [facility] Comment on above: Performed By: #### H STROPN, BNP, CMP ####[facility] [address] [place], [place] [address]Dr. Merlene Carr EGFR-NON AF [place] 49 mL/min/1.73m2 Critically low >=60 [facility] Comment on above: Performed By: #### H STROPN, BNP, CMP ####[facility] [address] [address]Dr. Merlene Carr Globulin (S) [Mass/Vol] 4.2 g/dL Normal [facility] Comment on above: Performed By: #### H STROPN, BNP, CMP ####[facility] [address] [address]Dr. Merlene Carr Glucose [Mass/Vol] 95 mg/dL Normal 74-106 [facility] Comment on above: Performed By: #### H STROPN, BNP, CMP ####[facility] [address] [address]Dr. Merlene Carr Potassium [Moles/Vol] 4.1 mmol/L Normal 3.5-5.1 [facility] Comment on above: Performed By: #### H STROPN, BNP, CMP ####[facility] [address] [address]Dr. Merlene Carr Protein [Mass/Vol] 7.8 g/dL Normal 6.4-8.2 [facility] Comment on above: Performed By: #### H STROPN, BNP, CMP ####[facility] [address] [address]Dr. Merlene Carr Sodium [Moles/Vol] 144 mmol/L Normal 136-145 [facility] Comment on above: Performed By: #### H STROPN, BNP, CMP ####[facility] [address] [address]Dr. Merlene Carr Urea nitrogen [Mass/Vol] 10.0 mg/dL Normal 7.0-18.0 [facility] Comment on above: Performed By: #### H STROPN, BNP, CMP ####[facility] [address] [address]Dr. Merlene Carr Urea nitrogen/Creatinine [Mass ratio] 8.8 mg/mg Normal [facility] Comment on above: Performed By: #### H STROPN, BNP, CMP ####[facility] [address] [address]Dr. Merlene Carr SPUTUM GRAM STAINon 09-06-19 23 COMMENTS [facility] Comment on above: Performed By: #### S PUTGS #### [facility] [address] [address] [address] Merlene Carr DIPHTHEROIDS Normal [facility] Comment on above: Performed By: #### S PUTGS #### [facility] [address] [address] [address] Merlene Carr EPITHELIALS >25 Normal [facility] Comment on above: Performed By: #### S PUTGS #### [facility] [address] [address] [address] Merlene Carr FUNGAL ELEMENTS Normal [facility] Comment on above: Performed By: #### S PUTGS #### [facility] [address] [address] [address] Merlene Carr GRAM NEG BACILLI Normal [facility] Comment on above: Performed By: #### S PUTGS #### [facility] [address] [address] [address] Merlene Carr GRAM NEG DIPPLOCOCCI Normal [facility] Comment on above: Performed By: #### S PUTGS #### [facility] [address] [address] [address] Merlene Carr GRAM POS BACILLI Normal [facility] Comment on above: Performed By: #### S PUTGS #### [facility] [address] [address] [address] Merlene Carr GRAM POSITIVE COCCI FEW Normal [facility] Comment on above: Performed By: #### S PUTGS #### [facility] [address] [address] [address] Merlene Carr WBC (Bld) [#/Vol] 10*3/uL Normal [facility] Comment on above: Performed By: #### S PUTGS #### [facility] [address] [address] [address] Merlene Carr TROPONIN, HIGH SENSITIVITYon 09-05-2022 HSTROP 9.6 pg/mL Normal 4.0-51.3 [facility] Comment on above: Result Comment: CUT- OFF POINTS HAVE BEEN ESTABLISHED BASED ON THE FOURTH UNIVERSAL DEFINITIONS OF MYOCARDIAL INFARCTION. THE UPPER REFERENCE LIMIT (URL) OF TROPONIN, DEFINED THE 99TH PERCENTILE OF cTnI DISTRIBUTION IN A REFERENCE POPULATION, HAS BEEN CONFIRMED THE DECISION THRESHOLD FOR CO DIAGNOSIS. Performed By: #### H STROPN, BNP, CMP ####[facility] [address] [place], [place] [address]Em. Merlene Carr XR CHEST 2 Von 09-05-2022 XR CHEST 2 V EXAM: XR CHEST 2 V HISTORY: SHORTNESS OF BREATH COMPARISON: Chest x-ray 04/19/2022 and 11/20/2018. TECHNIQUE: Upright frontal and lateral views of the chest are obtained. FINDINGS: The cardiomediastinal silhouette is nonenlarged. Pulmonary vascular markings are within normal limits. There is mild central interstitial thickening and peribronchial cuffing similar to the prior study. There is no focal airspace consolidation, sizable effusion or pneumothorax. The osseous structures appear grossly intact. Lower thoracic posterior spinal fusion hardware is again present. IMPRESSION: Minimal central interstitial thickenings and peribronchial cuffing similar to prior studies, possible bronchitis. No consolidative pneumonia. Electronically authenticated by: RISHABH MORENO Date: 2022-09-04 22:55 Normal [facility] Coding Summary.on 08-05-2022 Coding Summary. CD:[id number] Ww +PGhlYWQ+EF3ZYEFzN97kx BCqkS0fY9NHVWgQXagvBCW PRWpADjBjynGaGB5xwFIoK XJu IC8+NW4dEJIzDxmyqSKdf9 P4dPJ7B92tzf6uNBsieQB5 QWQmXmFujextq5hsnUo0SK cuNmluOyBt CLBykF37IXA3gC42Bn90cM RouPTpd1crpMn2FuCnQNCt ZVD9iJkrPSdky4YdSYAwE5 7qpGFvx4Z5 ZOVvlFunzQKaWuBeiLA1eW 7qOAuwypfsn0wivmtfQtk8 ob94wMGse0D1pKX1U2Shyn C0BYLxkCIh LbtksAUDoB6hwrmik2wzuz pqHcOuZWToEOj0WNy1NHLc fCmqXgLiPL72NRD7IFJcpg RjT9WnYVRr eOfvPtP2a8G0Fj4XS7TOXo tfR4TLPBYAWKcpkXY+PC90 ha13P3SaHfhcUez9JQPmDN I7pTF7uS2o MNXhDRlid2K3vLF9H8Uigl Zuxu2jp9qhGLPgHLgeK21x gZUxr4A0TTHglDT2FZJjqI hcQlFiqZ19 Oyc+CGYkrAqal1BqLitao2 mni0ltpLp7JzfqNEQvmpSi pGsmCMI3l0BjKt1rCKFhsR Q7fRN8iK8j TzZcRqO8OMikU436OwSbxD BdCpinI34dW5NwySV+PHRy Hya8XPKdfJvoYB7qK5PgNT RpbmctbGVm bYazMX4eCLLriswzAYMapR 3kAXMvA6c4ZrFmFaJ5DOzk U4TtTYQifcvpZp52vP3lZj UpSbT8LHsw T2WoylM7QXNdkNAhOLufUC S0A37zf3I0ITAyNZYgSJC4 lVL8oP5aaClifqybkTHcmE sgdmVydGlj HWyxXLobI949JDBykRipVk NvZGluZyBEYXRlOiAgMDQv MTUvMjAyMzwvdGQ+PHRkIH B8zLjbXMYh bZWeEFvdJo6nqPiwhDpnUA 6dQIOdnhxlFNSqgG1xPONw kEKazCdiAY6rRAGnrqnmt0 19MnMrAQQ1 NDFbyLDuL8XplT0jMdTnZF TqCGAoT4JdiTDqKAiiL218 GZscTmX3VEVjwuAiI5BcTD FsaWduOiB0 p2W5Fd5Qu5GvabwvP3XsnO XiSsVaAqkgOGh1C3OoDqgv dHI+LO47TJBaZH93RQk0UD H0yBdjVSum GCJmZ9MluG2wUzRfGNCnLO RkOyc+PHRhYmxlIHdpZHRo VSkbIMZkMgKbcDjaYN2lLp 9yZGVyLWNv nMgcsIWpYsHwb1pnUTGiTH avOI2jgPgrW6EwiLA8EYIq o4m2Ec11W70fH3TdlXT+PG EpvRK3sUC4 iQ1gUuQxXlY1WUvxK728Vi ZdwYXvJkzay1fte9ywzCs0 DbS7HDPbvlSwhDjyZWR7p3 EzHv04V82h IHdpZHRoPSIxNSUiIHZhbG nqwl9bpG7eKv0+PGNvbCB3 nBQ3aB5yXdSxSjV1DJlbI8 49InRvcCIv Fjbeo4iqg6pokTk4HiRrPW BelgYipRnlVLZ8y9AbTm13 N3AgdVhpa4NvIgt6lg43sL Gpw9C5kWQ4 J5VpFAWmotlmjADzrXlaES 7cRRPhziiaIRGwiT3pFNIq N9u7QzFaXrE4PHkuA9Aasg N8XFAmrPJc ADTtvEVDwH3ahivbd4vwkl eyDeArRKIuUSy2MVm1KOOo tRqgZyAnERN9HjE6AEM5hU WalU9lnIth dlgmoL9aRux+GFW5xJSnpR SRKB0nEncfqDY+PHRkIHN0 uCvjABykTELsmG9kZWGzQ8 o7GxTwPtA4 ZNlcI6JwxgH1GINjxVAzKV KxmWBOjO4ytriuz3niudcm ZnRpZEBlIDj0SPw9NHCpcU duOiBsZWZ0 KsR1WYN9mAVzgM6ekSuadp qhpO6rKzs+QmlydGggRGF0 QBw0K9BiWoy7TSXqzEcwKR 0ncGFkZGlu Lc9znDirrVtmLW7gFNVdmb ykn620BzWdv5ebUBEutFIu YYmdCDQ9B71os6R5MMUoIG RfGYE8fGQ4 lV1ufGcvududyDNreSpnyy NlbNtbHEafOLxbN506UJYj hDwoXtEaFWj9T0QzEni9FV YqcQtpHJ0y xOPeMJowJv4xqTxdbSlsGP 4oCVBpblxhi714WjFzs1vx JXFyhCLlZSgwDQO2K27bi9 I1OAZeXEEb PZS6wFE9zS4yyShrxexzeE VmdDsgdmVydGljYWwtYWxp V766AVBvxCufViUdtVt4Y1 FzBzn9WKIn rFkiEP8ldLLfZMnyTe3vdN wmrJywXI0jWHFgpiwbd194 TqDll0cmQSPhmJYfSZfkLU V6X16vr4P6 FEGvAGEcGRW7bHT0uQ7ozP lnbjogbGVmdDsgdmVydGlj IPylTEofU514CXDzpSbpZd BhdGllbnQg ZDmzSSk6N5TsIjepjZN+PC 18LZRaMI57eQTreTNof2qp rHw4FiKzWBJvNND3dEfaJI oqh6XtINIw U16arMAhb8X8FXKzgLntyN CkZvDfqBG4eO5kYVyqhsad d4acpuefFmakn8evmm24tQ 56L31jWYwk ZHRoPSIzMCUiIHZhbGlnbj 8hcK2oIu8+IIMzrUP7kOG3 lZ8oUAYaDxD1NMtgD605Da RvcCIvPjxj e4nzw6fbbKw4TiR1KSAtoa EitPamXUV4o9EbAd56P60k IHdpZHRoPSIyMCUiIHZhbG zpmu7kuJ5z Ii8+JCGbdPW1oOT8xJ7gKp HaNyN5VWghX855KvCjkIGg QajzT21kO1UeoIF+PHRyPj k1HOYamNqw FT4mlTHjLIveHd5tSUJ5Qa GlMzVeCHdmQ6JjFMLbhhug hurkoBZ4OYPzWWSdkS42Zl 9udDogMTBw iXIAzH9kevvnc3qqgzdiMj NeTJFuYYt6VMn5BHQarOpf RtGmILR7SkD0GOO6xHWucT 1hbGlnbjog fZ4eB7AyXMQhjsvkPv01gU 5wBsXyAdB6AJkmLcc+Sk9I TlNPTiwgWkVTVEEgQjwvdG Q+PHRkIHN0 dYjvTHkiWQPwbA2nQJAcG2 n6QeJsVoF2AFwaC9ZbZANg qfiqIo52nA8zCrRlOiG1SH umZ5HirfX1 SDTyvREoOSmeOMN8S71md1 U8VRFxOHHhVJT6uPE5zC8v bGlnbjogbGVmdDsgdmVydG ljYWwtYWxp W232WBYxsAhpIeXiXzV6Bk B7Vmr2Y8SbOtt0RRPgmWfu IX3taOZvFZkjZi2cjHmxtX szVV2pBUXi kbijFZLqxE3hBYQqhSDjqX zwNA8nCBZrpfkre464IiEv RVJ4XKDvvFUdH1ReuT3nGe AjMDAwMDAw W1RdrUBsVJcuW180JNtsSs O1LQFpgfXjO7FdHLGhhQwq BpG9k2C9Ro56SEWXKKIxof wvdGQ+PHRk IXI3rMmuLCtwXSMfgU0zOW QbX9d0ArLcQaM8IUfdK8Ip WVDxwllrQu23mM0sWeXwEc J9AJtyD2Zu htJ0ZYKpnHLxBOqyKJS0W2 2zk3N1XVMiFWJhQSC2yRC5 jY2xbHdfevwigOBriNchci VydGljYWwt KFstX273WDDatInlRxQwkD FsZTwvdGQ+AGPhCTJ8dZnd VPsqEEZarC7eQCKuK2c6Xp VxLmU2VPwr F1TnXEGbplxjMu71vF3lGg FqBvC1CHetR5FdxwI4XZNi qAJcQJvgDGS3F09ka3B8GC MwMDAwMDA7 oIH4tJ8csTuxktkjaGQrrQ yorrCrfAwzIEeaHVwcL738 YNSmhVuuKd34cGKcyXgkvy S3K4GzPvje dHI+SX22SXXjCX66mTWziV Tka1siiEh6OgFpNEJtGAJ4 oJqoJJmet2UmRPHnT00gfP Cmo4R5AZZr iAvghBIlXbElwBA7nJ0bUU azvxrsv0jqtkblRrwjq7al df92dC26P74yOSgrCRMaZU IzMCUiIHZh bJuget6rrH9jXr1+PGNvbC V2gPS0hC3tTaXlNzU1JGag Z160PjXiuXFhOsbfe7tyo4 zraJy5PyJt HUBdoxZhnQgtJSN0w7RnCv 76U25fAHbrNASrBGRuXEZj CXGuvLglew9eqI5zIe5+PC 2yf1vrxy13 tV14tOW+PDTtYTY8tKkrUG eySDYdxQ7tPIszOaE7QDFi DfBewV06mYIeNEhuDm9rhK ekhHkoRE6f RUNyyhfbg249JrVpo1ztKQ ByuIRiSKeyZBE6B02wb1X9 CCJeGEPxGPU9wQH3uZ1omD lnbjogbGVm dDsgdmVydGljYWwtYWxpZ2 00MJZbnIcgQyQzsLDcH3nw usPSXI8xAxyexGS+PHRkIH M4wOepGKxh NLRfpU5cOTYxX7q5MuDuZx K2JSqoD2YamyA3MZXqbSYa YLIooGVMxY6vkkycr3rary ogIzAwMDAw TMp9NHv6NICjpHtaAuAlEC V3YwC5BDJ0nKNwdC4frGgr voyrtL0tVgc+RklOOjwvdG Q+PHRkIHN0 hHmaXVmlJSNwbE0pSXZvS2 t4CmJzBqY7CEgbQ9UcukL7 ZTTwtIQdSOBbsVPRwN2tbs zox7qlsoxl AyQdTWPrCLh2GJe7QUGidF bpTzHbGBQ1YfA8CFU4yPQr xA2qeSjfqfrxzO7lYzs+TV JOOjwvdGQ+ IBVzSZC5dUqtBCkjMVFclD 9yOMGjL3u8JaGnYxX0SOfx N4NlhwF1TADgcDAiIMQoeV BBcT4vdoyk x3hzchbxJyVuHDXiZJt7FS e1UOZmcFdrJeKyADU3CbF1 ROI4aWXhyV8uoXsrwqrbwS 9wOyc+UGF5 GVY6WO65CU92I6ChJabwgI FibGU+PHRhYmxlIHdpZHRo GFntITThLuPegPzyYW3nSi 9yZGVyLWNv bGxhcHNl (more content not included)... Normal [facility] CT Maxillofacial w/o Contras ton 07-31-2022 CT Maxillofacial w/o Contrast Exam Date/Time: 07/31/2022 10:57 EDT Reason for Exam: J32.4 Report IMPRESSION: NO ACUTE FINDINGS. CT MAXILLOFACIAL WITHOUT INTRAVENOUS CONTRAST MEDIUM. History: Epistaxis and sinus pressure for 3 months.. Technical factors: CT maxillofacial was obtained and formatted as 1.0 mm contiguous axial images were obtained through the osseous structures. Sagittal and coronal reconstruction obtained during postprocessing. Comparison: None. Findings: Bilateral frontal, ethmoid, sphenoid, and maxillary sinuses are patent. Nasal septum midline. Ostiomeatal complexes patent bilaterally. Mastoid air cells well pneumatized bilaterally. No fractures or bone lesions. Bilateral ocular globes, extraocular muscles, optic nerves, retrobulbar fat without anomaly. All CT scans at this facility use dose modulation, iterative reconstruction, and/or weight based dosing when appropriate to reduce radiation dose to as low as reasonably achievable. Ordering Provider: Christine Bowman FINAL REPORT Dictated: 07/31/2022 7:06 pm Nomi Zaragoza MD Signed (Electronic Signature): 07/31/2022 7:06 pm Signed by: Nomi Zaragoza MD Transcribed by: ABNER Technologist: RYDER Normal [facility] Consent for Treatmenton 07-22 Consent for Treatment [id number] 0CD:127 Normal [facility] Physician Orderon 07-25-2022 Physician Order [id number] 0CD:127 Normal [facility] Physician Orderon 06-26-2022 Physician Order [id number] 0CD:127 Normal [facility] XR CHEST 2 Von 04-19-2022 XR CHEST 2 V ONE-VIEW CHEST RADIOGRAPH, 04/19/2022 6:19 PM EST COMPARISON: Chest, 04/25/2012. CLINICAL HISTORY: SHORTNESS OF BREATH with cough for a month. Findings and impression: 1. Lung volumes are slightly diminished with some crowding of bronchopulmonary vasculature and slight accentuation cardiomediastinal silhouette. Lungs otherwise clear. 2. Normal heart size. 3. No acute osseous abnormality. Orthopedic fixation over the lower cervical region. Chronic osseous fusion between the right anterior first and second rib redemonstrated. Electronically authenticated by: Jorden STALEY Date: 2022-04-19 19:45 Normal [facility] Q - ALLERGEN INTERPon 2020 INTERPRETATION SEE NOTE Normal [facility] Biochemistry Specialist Comment on above: Order Comment: [facility] performed at: QPT, [facility], [address], [address], [place], [phone], Client Technical Specialist: Velasquez Caldwell MD [facility] Collection Date/Time: [facility] Results Received Date/Time: [facility] Reported Date/Time: Result Comment: Specific Level of Allergen IGE Class kU/L Specific IGE Antibody ----- --------- 0 <0.10 Absent/Undetectable 0/1 0.10-0.34 Very Low Level 1 0.35-0.69 Low Level 2 0.70-3.49 Moderate Level 3 3.50-17.4 High Level 4 17.5-49.9 Very High Level 5 50-100 Very High Level 6 >100 Very High Level The clinical relevance of allergen results of 0.10-0.34 kU/L are undetermined and intended for specialist use. Allergens denoted with a include results using one or more analyte specific reagents. In those cases, the test was developed and its analytical performance characteristics have been determined by [facility]. It has not been cleared or approved by the U.S. Food and Drug Administration. This assay has been validated pursuant to the CLIA regulations and is used for clinical purposes. Performed By: #### % SBRAST, [id number] #### [facility] Default [address] [place] [address] Q - RESP ALLERGY PROFILE REG ION Von 04-11-2021 ALTERNARIA ALTERNATA (M6) IGE <0.10 Normal [facility] Biochemistry Specialist Comment on above: Order Comment: [facility] performed at: [facility], [address] [place] [address], [address] [place] [address], [phone], Client Technical Specialist: Velasquez Caldwell MD [facility] Collection Date/Time: [facility] Results Received Date/Time: [facility] Reported Date/Time: Performed By: #### % SBRAST, [id number] #### [facility] [address] [place] [address] ASPERGILLUS FUMIGATUS (M3) IGE <0.10 Normal [facility] Bi[facility] Specialist Comment on above: Order Comment: [facility] Testing performed at: [facility], [address] [facility], [address] [place] [address], [phone], Client Technical Specialist: Velasquez Caldwell MD [facility] Collection Date/Time: [facility] Results Received Date/Time: [facility] Reported Date/Time: Performed By: #### % SBRAST, [id number] #### [facility] Default [address] [place] [address] BERMUDA GRASS (G2) IGE <0.10 Normal [facility] Biochemistry Specialist Comment on above: Order Comment: [facility] Testing performed at: [facility], [facility], [address] , [address] [place] [address], , Client Technical Specialist: Velasquez Caldwell MD [facility] Date/Time: [facility] Results Received Date/Time: [facility] Reported Date/Time: Performed By: #### % SBRAST, [id number] #### [facility] Default [address] [place] [address] BIRCH (T3) IGE <0.10 Normal [facility] Specialist Comment on above: Order Comment: [facility] Testing performed at: [facility], [facility], [address] , [address] [place] [address], , Client Technical Specialist: Velasquez Caldwell MD [facility] Collection Date/Time: [facility] Results Received Date/Time: [facility] Reported Date/Time: Performed By: #### % SBRAST, [id number] #### [facility] Default [address] [place] [address] CAT DANDER (E1) IGE <0.10 Normal [facility] Specialist Comment on above: Order Comment: [facility] Testing performed at: [employer], [facility], [address] , [address] [place] [address], [phone], Client Technical Specialist: Velasquez Caldwell MD [facility] Collection Date/Time: [facility] Results Received Date/Time: [facility] Reported Date/Time: Performed By: #### % SBRAST, [id number] #### [facility] Default [address] [place] [address] CLADOSPORIUM HERBARUM (M2) IGE <0.[address] [facility] Specialist Comment on above: Order Comment: [facility] Testing performed at: [facility], [facility], [address] [facility], [address] [place] [address], [address] [place] [address], Client Technical Specialist: Velasquez Caldwell MD [facility] Date/Time: [facility] Results Received Date/Time: [facility] Reported Date/Time: Performed By: #### % SBRAST, [id number] #### [facility] Default [address] [place] [address] CLASS 0/1 Normal [facility] Comment on above: Order Comment: [facility] Testing performed at: [facility], [facility], [address] [place] [address], [address] [place] [address], [address] [place] [address], Client Technical Specialist: Velasquez Caldwell MD [facility] Collection Date/Time: [facility] Results Received Date/Time: [facility] Reported Date/Time: Performed By: #### % SBRAST, [id number] #### [facility] Default [address] [place] [address] [facility] Specialist Comment on above: Order Comment: [facility] Testing performed at: [facility], [employer] [facility], [address] [place] [address], [address] [place] [address], [address] [place] [address], Client Technical Specialist: Velasquez Caldwell MD [facility] Collection Date/Time: [facility] Results Received Date/Time: [facility] Reported Date/Time: Performed By: #### % SBRAST, [id number] #### [facility] Default [address] [place] [address] COCKROACH (I6) IGE <0.10 Normal [facility] Comment on above: Order Comment: [facility] performed at: [facility], [employer], [address] [place] [address], [address] [place] [address], [address] [place] [address], Client Technical Specialist: Velasquez Caldwell MD [facility] Collection Date/Time: [facility] Results Received Date/Time: [facility] Reported Date/Time: Performed By: #### % SBRAST, [id number] #### [facility] Default [address] [place] [address] COMMON RAGWEED (SHORT) (W1) IGE <0.10 Normal [facility] Biochemistry Specialist Comment on above: Order Comment: [facility] Testing performed at: [employer] [facility], [address] [place] [address], [address] [place] [address], [address] [place] [address], Client Technical Specialist: Velasquez Caldwell MD [facility] Collection Date/Time: [facility] Results Received Date/Time: [facility] Reported Date/Time: Performed By: #### % SBRAST, [id number] #### [facility] Default [address] [place] [address] COTTONWOOD (T14) IGE <0.10 Normal [facility] Specialist Comment on above: Order Comment: [facility] performed at: [employer] [facility], [address] [place] [address], [address] [place] [address], [address] [place] [address], Client Technical Specialist: Velasquez Caldwell MD [facility] Collection Date/Time: [facility] Results Received Date/Time: [facility] Reported Date/Time: Performed By: #### % SBRAST, [id number] #### [facility] Default [address] [place] [address] DERMATOPHAGOIDES FARINAE (D2) IGE 0.11 kU/L High [facility] Biochemistry Specialist Comment on above: Order Comment: [facility] performed at: [employer] [facility], [address] [place] [address], [address] [place] [address], [address] [place] [address], Client Technical Specialist: Velasquez Caldwell MD [facility] Collection Date/Time: [facility] Results Received Date/Time: [facility] Reported Date/Time: Performed By: #### % SBRAST, [id number] #### [facility] Default [address] [place] [address] DERMATOPHAGOIDES PTERONYSSINUS (D1) IGE 0.14 kU/L [facility] Specialist Comment on above: Order Comment: [facility] Testing performed at: [employer] [facility], [address] , [address] [place] [address], [address] [place] [address], Client Technical Specialist: Velasquez Caldwell MD [facility] Collection Date/Time: [facility] Results Received Date/Time: [facility] Reported Date/Time: Performed By: #### % SBRAST, [id number] #### [facility] Default [address] [place] [address] DOG DANDER (E5) IGE <0.10 Normal [facility] Comment on above: Order Comment: [facility] performed at: [employer] [facility], [address] , [address] [place] [address], [address] [place] [address], Client Technical Specialist: Velasquez Caldwell MD [facility] Collection Date/Time: [facility] Results Received Date/Time: [facility] Reported Date/Time: Performed By: #### % SBRAST, [id number] #### [facility] Default [address] [place] [address] ELM (T8) IGE <0.10 [facility] Biochemistry Specialist Comment on above: Order Comment: [facility] Testing performed at: [employer] [facility], [address] , [address] [place] [address], [address] [place] [address], Client Technical Specialist: Velasquez Caldwell MD [facility] Collection Date/Time: [facility] Results Received Date/Time: [facility] Reported Date/Time: Performed By: #### % SBRAST, [id number] #### [facility] Default [address] [place] [address] HICKORY/PECAN TREE (T22) IGE <0.10 [facility] Biochemistry Specialist Comment on above: Order Comment: [facility] Testing performed at: [facility], [facility], [address] [facility], [address] [place] [address], [address] [place] [address], Client Technical Specialist: Velasquez Caldwell MD [facility] Collection Date/Time: [facility] Results Received Date/Time: [facility] Reported Date/Time: Performed By: #### % SBRAST, [id number] #### [facility] Default [address] [place] [address] IMMUNOGLOBULIN E 83 kU/L Normal [facility] Biochemistry Specialist Comment on above: Order Comment: [facility] Testing performed at: [facility], [employer] [facility], [address] [facility], [address] [place] [address], [address] [place] [address], Client Technical Specialist: Velasquez Caldwell MD [facility] Collection Date/Time: [facility] Results Received Date/Time: [facility] Reported Date/Time: Performed By: #### % SBRAST, [id number] #### [facility] Default [address] [place] [address] MAPLE (BOX ELDER) (T1) IGE <0.10 Normal [facility] Biochemistry Specialist Comment on above: Order Comment: [facility] performed at: [facility], [facility], [address] , [address] [place] [address], [id number], Client Technical Specialist: Velasquez Caldwell MD [facility] Collection Date/Time: [facility] Results Received Date/Time: [facility] Reported Date/Time: Performed By: #### % SBRAST, [id number] #### [facility] Default [address] [place] [address] MOUNTAIN CEDAR (T6) IGE <0.10 Normal [facility] Biochemistry Specialist Comment on above: Order Comment: [facility] performed at: [facility], [facility], [address] [facility], [address] [place] [address], [address] [place] [address], Client Technical Specialist: Velasquez Caldwell MD [facility] Collection Date/Time: [facility] Results Received Date/Time: [facility] Reported Date/Time: Performed By: #### % SBRAST, [id number] #### [facility] Default [address] [place] [address] MOUSE URINE PROTEINS (E72) IGE <0.[address] [facility] Specialist Comment on above: Order Comment: [facility] performed at: [employer] [facility], [address] [facility], [address] [place] [address], [address] [place] [address], Client Technical Specialist: Velasquez Caldwell MD [facility] Collection Date/Time: [facility] Results Received Date/Time: [facility] Reported Date/Time: Performed By: #### % SBRAST, [id number] #### [facility] Default [address] [place] [address] OAK (T7) IGE <0.[address] [facility] Biochemistry Specialist Comment on above: Order Comment: [facility] Testing performed at: [employer] [facility], [address] [facility], [address] [place] [address], [address] [place] [address], Client Technical Specialist: Velasquez Caldwell MD [facility] Collection Date/Time: [facility] Results Received Date/Time: [facility] Reported Date/Time: Performed By: #### % SBRAST, [id number] #### [facility] Default [address] [place] [address] PENICILLIUM NOTATUM (M1) IGE <0.[address] [facility] Specialist Comment on above: Order Comment: [facility] performed at: [employer] [facility], [address] [facility], [address] [place] [address], [address] [place] [address], Client Technical Specialist: Velasquez Caldwell MD [facility] Collection Date/Time: [facility] Results Received Date/Time: [facility] Reported Date/Time: Performed By: #### % SBRAST, [id number] #### [facility] Default [address] [place] [address] ROUGH PIGWEED (W14) IGE <0.10 Normal [facility] Biochemistry Specialist Comment on above: Order Comment: [facility] Testing performed at: [employer], [facility], [address] [facility], [address] [place] [address], [address] [place] [address], Client Technical Specialist: Velasquez Caldwell MD [facility] Collection Date/Time: [facility] Results Received Date/Time: [facility] Reported Date/Time: Performed By: #### % SBRAST, [id number] #### [facility] Default [address] [place] [address] BAHAMIAN THISTLE (W11) IGE <0.10 [facility] Specialist Comment on above: Order Comment: [facility] performed at: [employer], [facility], [address] [place] [address], [address] [place] [address], [address] [place] [address], Client Technical Specialist: Velasquez Caldwell MD [facility] Collection Date/Time: [facility] Results Received Date/Time: [facility] Reported Date/Time: Performed By: #### % SBRAST, [id number] #### [facility] Default [address] [place] [address] SHEEP SORREL (W18) IGE 0.13 kU/L [facility] Specialist Comment on above: Order Comment: [facility] performed at: [employer] [facility], [address] [facility], [address] [place] [address], [address] [place] [address], Client Technical Specialist: Velasquez Caldwell MD [facility] Collection Date/Time: [facility] Results Received Date/Time: [facility] Reported Date/Time: Performed By: #### % SBRAST, [id number] #### [facility] Default [address] [place] [address] SYCAMORE (T11) IGE 0.10 kU/L [facility] Specialist Comment on above: Order Comment: [facility] performed at: [employer] [facility], [address] , [address] [place] [address], [address] [place] [address], Client Technical Specialist: Velasquez Caldwell MD [facility] Collection Date/Time: [facility] Results Received Date/Time: [facility] Reported Date/Time: Performed By: #### % SBRAST, [id number] #### [facility] Default [address] [place] [address] ANÍBAL GRASS (G6) IGE <0.10 Normal [facility] Biochemistry Specialist Comment on above: Order Comment: [facility] performed at: [employer] [facility], [address] , [address] [place] [address], [address] [place] [address], Client Technical Specialist: Velasquez Caldwell MD [facility] Collection Date/Time: [facility] Results Received Date/Time: [facility] Reported Date/Time: Performed By: #### % SBRAST, [id number] #### [facility] Default [address] [place] [address] WALNUT TREE (T10) IGE <0.10 Normal [facility] Biochemistry Specialist Comment on above: Order Comment: [facility] performed at: [employer], [address] , [address] [place] [address], [address] [place] [address], Client Technical Specialist: Velasquez Caldwell MD [facility] Collection Date/Time: [facility] Results Received Date/Time: [facility] Reported Date/Time: Performed By: #### % SBRAST, [id number] #### [facility] Default [address] [place] [address] WHITE NORBERTO (T15) IGE <0.10 Normal [facility] Biochemistry Specialist Comment on above: Order Comment: [facility] Testing performed at: [employer], [address] , [address] [place] [address], [address] [place] [address], Client Technical Specialist: Velasquez Caldwell MD [facility] Collection Date/Time: [facility] Results Received Date/Time: [facility] Reported Date/Time: Performed By: #### % SBRAST, [id number] #### [facility] Default [address] [place] [address] WHITE MULBERRY (T70) IGE <0.10 Normal [facility] Biochemistry Specialist Comment on above: Order Comment: [facility] Testing performed at: [facility], [facility], [address], [address] [facility], [place], [address], Client Technical Specialist: Velasquez Caldwell MD [facility] Collection Date/Time: [facility] Results Received Date/Time: [facility] Reported Date/Time: Performed By: #### % SBRAST, [id number] #### [facility] Default [address] [place] [address] LUMBAR SPINE 2 OR 3 [facility] LUMBAR SPINE 2 OR 3 [facility] [address] [place] [id number] ========Patient Name: FREDI MCKEE : 1965Sex: FAge: Race: BlackMRN: [id number]. Location: 84Patient Status: Date: 03/07/2017 8:30:00 AMCompleted Date: 03/07/2017 08:35 AMRequesting Provider: HOMERO ACEVEDO Attending Provider: Report Copy To: Signs & Symptoms: M51.36 Other intervertebral disc degeneration, lumbar region [id number]: AthenaComments: , , Views (X-RAY, LUMBAR SPINE): AP, Lateral, L5-S1 Spot , Weight Bearing?: Y , , , Ordering Provider - HOMERO ACEVEDO MD , Exam: LUMBAR SPINE 2 OR 3 VWSAccession #: [id number] LUMBAR SPINE 2 OR 3 VWS 03/07/2017 8:35 AM EST SIGNS AND SYMPTOMS: M51.36 Other intervertebral disc degeneration, lumbar region I10 TECHNOLOGIST COMMENTS: Patient states complaint of low back pain Last surgery x 04/2016 check of L-spine QUESTION FOR THE RADIOLOGIST: , , Views (X-RAY, LUMBAR SPINE): AP, Lateral, L5-S1 Spot , Weight Bearing?: Y , , , Ordering Provider - HOMERO ACEVEDO MD , PROTOCOLS: AP, Lateral and L5-S1 spot film was obtained. COMPARISON: October 25, 2016. FINDINGS: LUMBAR SPINE 2 OR 3 VWS 03/07/2017 8:35 AM EST SIGNS AND SYMPTOMS: M51.36 Other intervertebral disc degeneration, lumbar region I10 TECHNOLOGIST COMMENTS: Patient states complaint of low back pain Last surgery x 04/2016 check of L-spine QUESTION FOR RADIOLOGIST: , , Views (X-RAY, LUMBAR SPINE): AP, Lateral, L5-S1 Spot , Weight Bearing?: Y , , , Ordering Provider - HOMERO ACEVEDO MD , PROTOCOL: AP, Lateral and L5-S1 spot film was obtained. COMPARISON: October 25, 2016. FINDINGS: Bones: There is preservation of the vertebral body heights. No fracture or destructive lesion. Small anterior bridging osteophytes of L3-L4Disk spaces: There is moderate disc height loss at L5-S1.Facet joints: There is mild facet joint hypertrophy L4-L5 and L5-S1.Alignment: There is levoconvex curvature of the lumbar spine .Posterior fusion hardware of T10-T11 vertebral bodies is partially visualized and appears unchanged. IMPRESSION: Degenerative changes with facet joint hypertrophy and anterior bridging osteophytes as described above. There is moderate disc height loss at L5-S1 which remain stable. Posterior fusion hardware of T10-T11 vertebral bodies is partially visualized and appears unchanged. Approved by:Chad yT on 03/07/2017 9:25 AM EST. I, Alex Galarza, have reviewed the images and report and concur with these findings. Electronically signed by:Alex Galarza. Transcribed by: [email or web address], User Resident: CHAD HASANElectronically Signed by: ALEX GALARZA @ 03/07/2017 02:18 PMI personally read this/these film(s) with this resident Normal [facility] Comment on above: Order Comment: , , V iews (X-RAY, LUMBAR SPINE): AP, Lateral, L5-S1 Spot , Weight Bearing?: Y , , , Ordering Provider - HOMERO ACEVEDO MD , LUMBAR SPINE 2 OR 3 [facility] SPINE [facility] [address] [place] [id number] ========Patient Name: FREDI MCKEE : 1965Sex: FAge: Race: BlackMRN: [id number]. Location: Patient Status: Date: 10/25/2016 8:45:00 AMCompleted Date: 10/25/2016 08:50 AMRequesting Provider: HOMERO ACEVEDO Attending Provider: Report Copy To: Signs & Symptoms: M51.36 Other intervertebral disc degeneration, lumbar region [id number]: AthenaComments: , , Views (X-RAY, LUMBAR SPINE): AP, Lateral, L5-S1 Spot , Weight Bearing?: Y , , , Ordering Provider - HOMERO SALMON MD , Exam: LUMBAR SPINE 2 OR 3 VWSAccession #: [id number] LUMBAR SPINE 2 OR 3 VWS 10/25/2016 8:50 AM EDT SIGNS AND SYMPTOMS: M51.36 Other intervertebral disc degeneration, lumbar region I10 TECHNOLOGIST COMMENTS: Patient c/o low back pain with pain down both legs. QUESTION FOR RADIOLOGIST: , , Views (X-RAY, LUMBAR SPINE): AP, Lateral, L5-S1 Spot , Weight Bearing?: Y , , , Ordering Provider - HOMERO SALMON MD , PROTOCOL: AP, Lateral and L5-S1 spot film was obtained. COMPARISON: July 26, 2016 FINDINGS: Bones: There are 5 nonrib-bearing lumbar type vertebral bodies visualized with normal bone density. Minimal anterior bony spurring at L3 and L4. Disk spaces: Relatively preserved disc spaces apart from minimal narrowing at L3-4 Facet joints: Facet joint sclerosis and narrowing at L4-S1 level.Alignment: Normal alignment. Lower thoracic spine hardware fusion is again visualized. Nonobstructive bowel gas pattern is visualized. IMPRESSION: Lower thoracic spine hardware fusion, unchanged. Otherwise, minimal disc space narrowing at L3-4 and lower lumbar spine facet joint disease. Electronically signed by:Moriah Krueger. Transcribed by: [email or web address], User Resident: Electronically Signed by: MORIAH KRUEGER @ 10/25/2016 03:33 PM Normal [facility] Comment on above: Order Comment: , , V iews (X-RAY, LUMBAR SPINE): AP, Lateral, L5-S1 Spot , Weight Bearing?: Y , , , Ordering Provider - HOMERO SALMON MD , BNPon 10-22-2016 BNP 8 pg/mL Normal 0 - 99 [facility] Comment on above: Result Comment: . <1 00 pg/mL - Heart failure [id number] pg/mL - Intermediate probability of acute heart. failure exacerbation. Correlate with clinical. context and patient history. >=300 pg/mL - Heart Failure likely. Correlate with clinical. context and patient history.BNP testing is performed using [facility]methodology [facility]. Direct result comparisons shouldonly be made within the same method. Performed By: #### B NP2 ####[facility] [facility][Note 3],[facility], [phone] CBC AND DIFFERENTIALon 10-22 % AUTOMATED IMMATURE GRAN 0.2 % Normal 0.0 - 0.9 [facility] Comment on above: Result Comment: Perc ent differential counts (%) should be interpreted in the context of the absolute cell counts (cells/L). Performed By: #### C BCDF ####[facility] [facility][Note 3],[facility], [phone] % NEUTROPHIL 55.7 % Normal 40.0 - 80.0 [facility] Comment on above: Performed By: #### C BCDF ####[facility] [facility][Note 3],[facility], [phone] Basophils/100 WBC Auto (Bld) 0.05 x10E9/L Normal 0.00 - 0.10 [facility] Comment on above: Performed By: #### C BCDF ####[facility] [facility][Note 3],[facility], [phone] Basophils/100 WBC Auto (Bld) 0.5 % Normal 0.0 - 2.0 [facility] Comment on above: Performed By: #### C BCDF ####[facility] [facility][Note 3],[facility], [phone] Eosinophils 0.23 10*3/uL Normal 0.00 - 0.70 [facility] Comment on above: Performed By: #### C BCDF ####[facility] [facility][Note 3],[facility], [phone] Eosinophils/100 leukocytes 2.1 % Normal 0.0 - 6.0 [facility] Comment on above: Performed By: #### C BCDF ####[facility],[facility], [phone] Erythrocyte distribution width Auto Ratio (RBC) 17.0 % High 11.5 - 14.5 [facility] Comment on above: Performed By: #### C BCDF ####[facility] [facility][Note 3],[facility], [phone] Erythrocytes (RBC) 5.38 x10E12/L High 4.00 - 5.20 [facility] Comment on above: Performed By: #### C BCDF ####[facility] [facility][Note 3],[facility], [phone] Hematocrit (HCT) 39.8 % Normal 36.0 - 46.0 [facility] Comment on above: Performed By: #### C BCDF ####[facility] [facility][Note 3],[facility], [phone] Hemoglobin mass conc (Bld) 12.7 g/dL Normal 12.0 - 16.0 [facility] Comment on above: Performed By: #### C BCDF ####[facility] [facility][Note 3],[facility], [phone] Lymphocytes 3.64 10*3/uL Normal 1.20 - 4.80 [facility] Comment on above: Performed By: #### C BCDF ####[facility] [facility][Note 3],[facility], [phone] Lymphocytes/100 leukocytes 33.4 % Normal 13.0 - 44.0 [facility] Comment on above: Performed By: #### C BCDF ####[facility] [facility][Note 3],[facility], [phone] MCHC mass conc (RBC) 31.9 g/dL Low 32.0 - 36.0 [facility] Comment on above: Performed By: #### C BCDF ####[facility] ,[facility], [phone] MCV 74 fL Low 80 - 100 [facility] Comment on above: Performed By: #### C BCDF ####[facility] [facility][Note 3],[facility], [phone] Monocytes 0.88 10*3/uL Normal 0.10 - 1.00 [facility] Comment on above: Performed By: #### C BCDF ####[facility] [facility][Note 3],[facility], [phone] Monocytes/100 leukocytes 8.1 % Normal 2.0 - 10.0 [facility] Comment on above: Performed By: #### C BCDF ####[facility] [facility][Note 3],[facility], [phone] Neutrophils 6.07 10*3/uL Normal 1.20 - 7.70 [facility] Comment on above: Performed By: #### C BCDF ####[facility] [facility][Note 3],[facility], [phone] Platelets 453 10*3/uL High 150 - 450 [facility] Comment on above: Performed By: #### C BCDF ####[facility] [facility][Note 3],[facility], [phone] WBC (Leukocytes) 10.9 10*3/uL Normal 4.4 - 11.3 [facility] Comment on above: Performed By: #### C BCDF ####[facility] [facility][Note 3],[facility], [phone] COMPREHENSIVE PANELon 2016 Alanine aminotransferase (ALT) 27 U/L Normal 7 - 45 [facility] Comment on above: Result Comment: Janeth ents treated with Sulfasalazine may generate falsely decreased results for ALT. Performed By: #### C MP ####[facility] [facility][Note 3],[facility], [phone] Albumin 4.0 g/dL Normal 3.4 - 5.0 [facility] Comment on above: Performed By: #### C MP ####[facility] [facility][Note 3],[facility], [phone] Alkaline phosphatase (ALP) 74 U/L Normal 33 - 110 [facility] Comment on above: Performed By: #### C MP ####[facility] [facility][Note 3],[facility], [phone] Anion gap 17 mmol/L Normal 10 - 20 [facility] Comment on above: Performed By: #### C MP ####[facility] [facility][Note 3],[facility], [phone] Aspartate aminotransferase (AST) 30 U/L Normal 9 - 39 [facility] Comment on above: Result Comment: MILD HEMOLYSIS DETECTED. The result may be falsely elevated due tohemolysis or other interferents. Clinical correlation is recommended.Repeat testing may be considered. Performed By: #### C MP ####[facility] [facility][Note 3],[facility], [phone] Bicarbonate (HCO3) 22 mmol/L Normal 21 - 32 [facility] Comment on above: Performed By: #### C MP ####[facility] [facility][Note 3],[facility], [phone] Bilirubin (total) 0.5 mg/dL Normal 0.0 - 1.2 [facility] Comment on above: Performed By: #### C MP ####[facility] [facility][Note 3],[facility], [phone] Calcium 9.7 mg/dL Normal 8.6 - 10.6 [facility] Comment on above: Performed By: #### C MP ####[facility] [facility][Note 3],[facility], [phone] Chloride 103 mmol/L Normal 98 - 107 [facility] Comment on above: Performed By: #### C MP ####[facility] [facility][Note 3],[facility], [phone] Creatinine 1.13 mg/dL High 0.50 - 1.05 [facility] Comment on above: Performed By: #### C MP ####[facility] [facility][Note 3],[facility], [phone] eGFR (non-black) 51 mL/min/{1.73_m2} Invalid Interpretation Code >60 [facility] Comment on above: Performed By: #### C MP ####[facility] [facility][Note 3],[facility], [phone] eGFR (non-black) 62 mL/min/{1.73_m2} Normal >60 [facility] Comment on above: Result Comment: CALC ULATIONS OF ESTIMATED GFR ARE PERFORMED USING THE MDRD STUDY EQUATION FOR THE IDMS-TRACEABLE CREATININE METHODS. CLIN CHEM 2007;53:766-72 Performed By: #### C MP ####[facility] [facility][Note 3],[facility], [phone] Glucose mass conc 126 mg/dL High 74 - 99 [facility] Comment on above: Performed By: #### C MP ####[facility] [facility][Note 3],[facility], [phone] Potassium molar conc 4.2 mmol/L Normal 3.5 - 5.3 [facility] Comment on above: Result Comment: MILD HEMOLYSIS DETECTED. The result may be falsely elevated due tohemolysis or other interferents. Clinical correlation is recommended.Repeat testing may be considered. Performed By: #### C MP ####[facility] [facility][Note 3],[facility], [phone] Protein 8.1 g/dL Normal 6.4 - 8.2 [facility] Comment on above: Performed By: #### C MP ####[facility] [facility][Note 3],[facility], [phone] Sodium 138 mmol/L Normal 136 - 145 [facility] Comment on above: Performed By: #### C MP ####[facility],[facility], [phone] Urea nitrogen 13 mg/dL Normal 6 - 23 [facility] Comment on above: Performed By: #### C MP ####[facility] [facility][Note 3],[facility], [phone] TROPONIN Ion 10-22-2016 Troponin I.cardiac mass conc ng/mL Normal 0.00 - 0.03 [facility] Comment on above: Result Comment: LESS THAN 0.04 NG/ML: NEGATIVEREPEAT TESTING IN FOUR TO SIX HOURSIF CLINICALLY INDICATED.0.04 - 0.5 NG/ML: CONSISTENT WITH POSSIBLECARDIAC DAMAGE AND POSSIBLE INCREASEDCLINICAL RISK.SERIAL MEASUREMENTS MAY HELP ASSESS EXTENT OFMYOCARDIAL DAMAGE.>0.5 NG/ML: CONSISTENT WITH CARDIAC DAMAGE,INCREASED CLINICAL RISK AND MYOCARDIALINFARCTION. SERIAL MEASUREMENTS MAY HELPASSESS EXTENT OF MYOCARDIAL DAMAGE..Note: Troponin I testing is performed using differenttesting methodology [facility] than at [facility]. Direct result comparisons should onlybe made within the same method. Performed By: #### T ROP2 ####[facility] [facility][Note 3],[facility], [phone] CHEST 2 VIEW PA AND LATon CHEST 2 VIEW PA AND LAT Name: FREDI MCKEE STUDY:CHEST 2 VIEW PA AND LAT; 10/21/2016 9:23 pm INDICATION:Signs/Sympt oms: leg swelling. COMPARISON:None. ORDERING CLINICIAN:JUANI REILLY FINDINGS:CARDIOMEDIAST INAL SILHOUETTE:Cardiomedia stinal silhouette is normal in size and configuration. LUNGS:There is no evidence of pulmonary edema or focal consolidation tosuggest pneumonia. No pneumothorax or pleural effusion is seenbilaterally. ABDOMEN:No remarkable upper abdominal findings. BONES:No acute osseous changes. Status post T10-T11 posterior fusion. IMPRESSION:1. No evidence of acute cardiopulmonary process.Electronically signed by: EWA NEELY MD [facility] Large Joint Arthro/Inj: bila teral knee joints [facility] Vital Signs Date Time Vital Sign Value Performing Clinician Brandon blue 11-20-2022 09:32-0400 Body height 162.6 cm Jamie Yañez PA-C Work Phone: [facility] 11-20-2022 09:32-0400 Body weight 149.05 kg Jamie Yañez PA-C Work Phone: [facility] Encounters Encounter Date Encounter Type Care Provider Facility Start: 03-09-2023 ambulatory Christine Bowman Facility: [facility] Start: 11-20-2022 End: 11-20-2022 ambulatory KALA CONTE Facility:[facility] Start: 11-20-2022 End: 11-20-2022 Patient encounter procedure Jamie HOFFMANN-C Work Phone: Orthopaedics Comment on above: Bilateral primary os teoarthritis of knee (Primary Dx); Class 3 severe obesity due to excess calories without serious comorbidity with body mass index (BMI) of 50.0 to 59.9 in adult (HCC) Start: 11-20-2022 End: 11-20-2022 Subsequent hospital visit by physician Xr [facility] Comment on above: Chronic pain of both knees [M25.561, M25.562, G89.29] Start: 11-03-2022 Orders Only Jamie pate PA-C Work Phone: Orthopaedics Comment on above: Chronic pain of both knees (Primary Dx) Start: 09-04-2022 End: 09-05-2022 ambulatory [facility] Facility: Start: 07-31-2022 End: 08-01-2022 ambulatory Christine Bowman Facility:[facility] Start: 07-31-2022 End: 07-31-2022 Patient encounter procedure Christine Bowman [facility] Start: 07-06-2022 End: 07-07-2022 ambulatory [facility] Facility:[facility] Start: 06-08-2022 End: 06-09-[address] CADENCE LUKE . Facility:[facility] Start: 05-18-[address] CADENCE LUKE . Faci lity:[facility] Start: 04-19-2022 End: 04-19-2022 ambulatory [facility] Facility:[facility] Start: 02-15-2022 End: 02-16-[address] CADENCE LUKE . Facility:[facility] Start: 01-19-2022 End: 01-20-2022 [facility] Facility:[facility] Start: 10-18-2021 End: 10-19-[address] CADENCE LUKE . Facility:[facility] Start: 10-07-2021 End: 10-08-2021 ambulatory Aníbal Marroquin II Facility:[facility] Start: 10-06-2021 End: 10-07-2021 [facility] Facility: Start: 03-07-2017 End: 03-08-2017 Ambulatory HOMERO ACEVEDO Facility:[facility] Start: 10-25-2016 End: 10-26-2016 Ambulatory HOMERO ACEVEDO Facility:[facility] Start: 10-21-2016 End: 10-22-2016 Ambulatory Светлана Albright Facility:[facility] Start: 10-21-2016 Emergency dept visit high severity&threat funcj Светлана Albright [facility] Procedures Date Procedure Procedure Detail Performing Clinician Start: 11-20-2022 Arthrocentesis aspir &/inj major jt/bursa w/o us Jamie Yañez PA-C Work Phone: Start: 11-20-2022 Radiologic exam knee complete 4/more views Jamie Yañez PA-C Work Phone: Start: 11-02-2022 Mammography Jamie Connors PA-C Work Phone: Start: 02-24-2021 Cystoscopy Christine Modesto mis Abdominal hysterectomy Hilar y Timmis Colonoscopy Christine Timmis Decompression of med faraz nerve Christine Timmis Destructive procedure Christine Bowman History of hernia repair Ricci Bowman History of operative procedure on lumbar spinal structure Christine Bowman Plan of Treatment Date Care Activity Detail Author Start: 11-03-2023 Mammography MAMMOGRAM [facility] Start: 12-22-2022 Influenza vaccination INFLUENZA (#1) [facility] Start: 10-12-2022 ambulatory Ambulatory Facility:[facility] 1 Start: 04-23-2022 DEPRESSION ASSESSMENT DEPRESSION ASS ESSMENT [facility] Start: 05-27-2021 COVID-19 VACCINE (4 - Moderna series) COVID-19 VACCINE (4 - Moderna series) [facility] Start: 07-15-2017 SHINGRIX VACCINE (1 of 2) SHINGRIX VACCINE (1 of 2) [facility] Start: 07-15-2012 COLOGUARD (FIT-DNA) COLOGUARD (FIT-D NA) [facility] Start: 07-15-2012 Colonoscopy COLONOSCOPY [facility] Start: 07-15-2012 COLORECTAL CANCER SCREENING COLORECTAL CANCER SCREENING [facility] Start: 07-15-[address] COLONOGRAPHY [facility] Start: 07-15-2012 DIABETES SCREEN DIABETES SCREEN [facility] Start: 07-15-2012 FECAL OCCULT BLOOD FECAL OCCULT BLOO D [facility] Start: 07-15-2012 LIPID SCREEN LIPID SCREEN [facility] Start: 07-15-2012 SIGMOIDOSCOPY SIGMOIDOSCOPY [facility] Start: 2007 Mammography MAMMOGRAM [facility] Start: 07-15-1997 HPV TESTING HPV TESTING [facility] Start: 07-15-1988 PAP TESTING PAP TESTING [facility] Start: 07-15-1986 Urine microalbumin profile DTAP,TDAP,TD (1 - Tdap) [facility] Start: 07-15-1985 HEPATITIS C SCREENING HEPATITIS C SC REENING [facility] Start: 07-15-1985 HIV SCREENING HIV SCREENING [facility] Start: 01-16-1968 COVID-19 VACCINE (#1) COVID-19 VACCI NE (#1) [facility] Start: 1967 HEPATITIS B (1 of 3 - 3-dose series) HEPATITIS B (1 of 3 - 3-dose series) [facility] End: 12-03-2023 XR KNEE GENERAL 4V AP BOTH/PA BOTH/LAT/MERC BILATERAL XR KNEE GENERAL 4V AP BOTH/PA BOTH/LAT/MERC BILATERAL Radiology Routine Chronic pain of both knees 1 Occurrences starting 11/03/2022 until 12/03/[address] [facility] Work Phone: Comment on above: 1 Occurrences starti ng 11/03/2022 until 12/03/2023 [facility] Immunizations Immunization Date Immunization Notes Care Provider Fa cility 08-21-2020 SARS-CoV-2 (COVID-19 ) mRNA-1273 vaccine Christine Timmis [facility] 07-22-2020 SARS-CoV-2 (COVID-19 ) mRNA-1273 vaccine Christine Timmis [facility] 02-20-2018 Influenza, injectabl e, Madin Hampshire Canine Kidney, preservative free, quadrivalent Jamie McFrederick PA-C Work Phone: [facility] 03-12-2017 influenza, seasonal, injectable, preservative free Jamie McFrederick PA-C Work Phone: [facility] 02-15-2016 influenza, seasonal, injectable, preservative free Jamie McFrederick PA-C Work Phone: [facility] 02-24-2015 influenza, seasonal, injectable, preservative free Jamie McFrederick PA-C Work Phone: [facility] 01-09-2012 hepatitis B vaccine, pediatric or pediatric/adolescent dosage Jamie McFrederick PA-C Work Phone: [facility] 01-09-2012 hepatitis B vaccine, unspecified formulation Jamie McFrederick PA-C Work Phone: [facility] Payers Date Payer Category Payer Self-pay [id number] [facility] 2020 Medicare [facility] MEDICARE [facility] DUAL COMPLETE HMO POS SNP [id number] 2020-Present [phone] [address] [place] [address] Medicare [id number] 2020 Unknown [id number] 2018 Medicaid [id number] 2017 Unknown [id number] 1967 Unknown [id number] 1967 Unknown [id number] 1967 Unknown [id number] [id number] 1967 Unknown [id number] [id number] 1967 Unknown [id number] [id number] 1967 Unknown [id number] [id number] 1967 Unknown [id number] [id number] 1967 Unknown [id number] [id number] 1967 Unknown [id number] [id number] 1967 Unknown [id number] [id number] 1967 Unknown [id number] 1959 Unknown [id number] Unknown [id number] Social History Date Type Detail Facility Start: 08-15-2017 End: 01-25-2021 Tobacco smoking status Ex-smoker (finding) [facility] Start: 11-22-2018 End: 11-06-2022 Sex Assigned At Female [facility] History of tobacco use Current smoker [facility] History of tobacco use Cigarette Smoker [facility] Start: 08-15-2017 Tobacco use and exposure Smokeless tobacco non-user [facility] Start: 08-14-2018 Alcohol intake Current drinke r of alcohol (finding) [facility] Start: 11-22-2018 End: 11-06-2022 History of Social function [facility] PHQ-2 Score 0 [facility] Start: 08-15-2017 Tobacco Comment quit 2013 [facility] Start: 07-30-2013 Alcohol Comment social [facility] Start: 1965 Sex Assigned At Not on file C [facility] Start: 1965 Sex Assigned At Female [facility] Clinical Notes 10-06-2021 to 11-20-2022 Jamie Yañez PA-C - 11/20/2022 4:47 PM EDTMJamie Connors PA-C - 11/20/2022 9:34 AM Stanley Dwyer RT(R) - 11/20/2022 9:00 AM EDT Note Date & Type Note Facility 11-20-2022 Note HNO ID: [id number] Author: Jamie Yañez PA-C Service: ? Author Type: Physician Services Executive Type: Progress Notes Filed: 11/20/2022 4:50 PM Note Text: In addition to the comprehensive evaluation, assessment and plan outlined above, and as a distinct and separate element to the visit today, separate from a PT consult order and referral for weight management , we have made the determination to proceed with an injection to aid in the management of the patient's condition. We discussed the risks, benefits, alternatives and expected outcomes of this injection in detail, and the patient agreed to proceed. The procedure was performed as detailed below. Large Joint Arthro/Inj: bilateral knee joints Informed Consent Consent Obtained: Verbal [place] Protocol A moment to CARE was completed. SIGN IN Personnel directly involved with the procedure wore the appropriate PPE. Special Equipment: N/A Patient/Surrogate Stated/Verified: Patient name, Date of , Relevant allergies and Intended procedure TIME OUT Intended patient and procedure match the source document(s). Consent documented and matches the intended procedure. Relevant labs, photos, and/or imaging studies have been reviewed. Correct side/site marked and visible. Medications required for procedure verified. No fire risk assessment and interventions applicable. No implant(s) inserted. 11/20/2022 4:48 PM The procedure site was prepped in the usual sterile fashion. Site: bilateral knee joints Medications (Right): 80 mg triamcinolone acetonide 40 mg/mL Medications (Left): 80 mg triamcinolone acetonide 40 mg/mL Anesthetics (Right): 4 mL lidocaine (PF) 10 mg/mL (1 %); 4 mL BUPivacaine (PF) 0.5 % (5 mg/mL) Anesthetics (Left): 4 mL lidocaine (PF) 10 mg/mL (1 %); 4 mL BUPivacaine (PF) 0.5 % (5 mg/mL) Outcome: Tolerated well, no immediate complications Post-injection instructions were reviewed with the patient and the patient voiced understanding of these instructions. [facility] 11-20-2022 History of Present illness Narrative Associated Order(s): Large Joint Arthro/Inj: bilateral knee joints Post-Procedure Diagnose(s): Bilateral primary osteoarthritis of knee In addition to the comprehensive evaluation, assessment and plan outlined above, and as a distinct and separate element to the visit today, separate from a PT consult order and referral for weight management , we have made the determination to proceed with an injection to aid in the management of the patient's condition. We discussed the risks, benefits, alternatives and expected outcomes of this injection in detail, and the patient agreed to proceed. The procedure was performed as detailed below. Large Joint Arthro/Inj: bilateral knee joints Informed Consent Consent Obtained: Verbal [place] Protocol A moment to CARE was completed. SIGN IN Personnel directly involved with the procedure wore the appropriate PPE. Special Equipment: N/A Patient/Surrogate Stated/Verified: Patient name, Date of , Relevant allergies and Intended procedure TIME OUT Intended patient and procedure match the source document(s). Consent documented and matches the intended procedure. Relevant labs, photos, and/or imaging studies have been reviewed. Correct side/site marked and visible. Medications required for procedure verified. No fire risk assessment and interventions applicable. No implant(s) inserted. 11/20/2022 4:48 PM The procedure site was prepped in the usual sterile fashion. Site: bilateral knee joints Medications (Right): 80 mg triamcinolone acetonide 40 mg/mL Medications (Left): 80 mg triamcinolone acetonide 40 mg/mL Anesthetics (Right): 4 mL lidocaine (PF) 10 mg/mL (1 %); 4 mL BUPivacaine (PF) 0.5 % (5 mg/mL) Anesthetics (Left): 4 mL lidocaine (PF) 10 mg/mL (1 %); 4 mL BUPivacaine (PF) 0.5 % (5 mg/mL) Outcome: Tolerated well, no immediate complications Post-injection instructions were reviewed with the patient and the patient voiced understanding of these instructions. CONSULT ORTHOPAEDIC: KNEE PRIMARY CARE PHYSICIAN: Kala Conte REFERRING PROVIDER: No referring provider defined for this encounter. ASSESSMENT & PLAN Impression: Bilateral Knee Severe Degenerative Osteoarthritis, Primary Obesity, BMI 56.40 Fredi is a 57 yo female with chronic bilateral knee pain and radiographic evidence of severe knee OA. We discuss maintaining conservative therapies until her health is better optimized in respect to her weight. She has worked with PCP in the past. Her Lbp is a barrier to exercise. She does not work with a urologist md. We discuss our Get Ready program. She is in agreement to this. We also discuss conservative therapy. She has had relief with injections in the past (last performed in April). Elected to perform bilateral CSIs. Please see separate procedure note for details. Aftercare discussed. She takes NSAIDs PRN and recommend she continue to use as needed given her recent creatinine. She should not be on NSAIDs prolonged. Physical therapy order has also been placed. After discussion with Fredi Mckee, continued non-operative management of physical therapy, injection(s), and referral to Get Ready program was chosen. The patient currently has had six months of unsuccessful non-operative treatment as outlined in the HPI below. The patient has been ordered: Physical therapy CONSULTS: Get Ready Program for weight management assistance. ACTIVE PROBLEM LIST Fibroid Uterus SUBJECTIVE CHIEF COMPLAINT: Knee Pain HPI: Fredi Mckee is a 57 year old patient here for evaluation and management of bilateral knee pain. Fredi Mckee has had progressive problems with the knee(s) constantly over the past 6 year(s) interfering with activities which include exercise, walking, rising from a sitting position, standing for prolonged periods of time, getting in and out of a car, and climbing stairs. Currently the pain in the joint is rated at 9 out of 10 with moderate activity. The pain is chronic and is located along the inside aspect and in the front. The pain is described as aching and severe. Relieving factors include rest. There is no specific incident that brought about this pain. Fredi Mckee also complains of stiffness. FUNCTIONAL STATUS: Walk a block or two on level ground (2.75 METs) Therapy to date - Ice or Heat: both OTC/Rx Medications (Topical/PO): Topical cream, she has not taken NSAIDs in the last month or so. 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 Fredi's estimated Length of Stay is 2 days (Inpatient candidate). Fredi's 30 day chance of readmission is 2.08%. Readmission Probability 2.08 % (within 30 days following surgery) Estimated LOS 2 days Discharge Disposition Probability D/C to Home 83.07 % D/C to SNF 16.93 % These calculations are based on the following factors: - 57 years of age - sex is not male - BMI of 56.4 kg/m2 - NarxCare score of 421 - 0 hospitalizations in the last 12 months - no history of heart disease - no history of diabetes - no history of COPD - no history of anemia - preoperative ambulation: independent community distances - 1 step(s) to enter home - bed location is on the first floor - bath location is on the first floor - caregiver is occassionally available 2-4 days / week - home is not more than 150 miles away - PROMIS-10 Mental Health T score 41-49 - Marital status: single REVIEW OF SYSTEMS: PAIN ASSESSMENT: See HPI. MUSCULOSKELETAL: See HPI. Risk Factors for Total Joint Arthroplasty (TJA) Obesity High Risk High: BMI > 40 Moderate: BMI 30-40 Normal: BMI < 30 Diabetes normal High: A1C > 8 Moderate: A1C 7-8 Normal: A1C < 7 Smoking normal High: Current smoker Normal: Non smoker Anemia normal High: Hgb < 11.5 (women) N/A: Hgb >= 11.5 (women) Nutritional Status normal High: Alb<3.4, or prealb<15, or serum transferrin<200, or total lymphocyte count<1500 Normal: normal labs COPD normal High: dx of COPD Normal: no dx of COPD MRSA normal High: dx of MRSA or positive lab test Normal: no MRSA CKD normal High: eGFR<60 Moderate: eGFR 60-89 Normal: eGFR>90 Hx of DVT / PE normal High: dx of DVT / PE Normal: no dx of DVT / PE Narcotics Use High Risk High:NarxCare >=300 Moderate: 100-299 Normal: 0-99 PATRICK normal High: dx of PATRICK N/A: no dx of PATRICK Coagulation normal High:PT Sec>13, or PT INR>1.3, or APTT>32.4, or Plt ct<150k Moderate: on anticoag but none of the above Normal: none Obesity: Weight management and obesity medicine (bariatric) program recommended BMI Readings from Last 3 Encounters: 11/20/22 : 56.40 kg/m 08/14/18 : 53.94 kg/m 08/15/17 : 55.92 kg/m NarxCare score NARX Narcotics: 421 (11/20/2022 8:08 AM) Other Risk Factors None PAST MEDICAL HISTORY Diagnosis Date Back pain Breast lump left breast Depression Family history of cancer 07/2017 HTN (hypertension) Obesity Sickle cell trait (HCC) PAST SURGICAL HISTORY Procedure Laterality Date D&C, DIAG AND/OR THERAPEUTIC 06/2013 Dilation & curettage HYSTERECTOMY HX PAST SURGICAL HISTORY OF c section PAST SURGICAL HISTORY OF 2003 carpal tunnel both hands PAST SURGICAL HISTORY OF 2009 cervical ablation PAST SURGICAL HISTORY OF spinal surgery FAMILY HISTORY Problem Relation Age of Onset Breast Cancer Mother Cancer Father prostate Diabetes Father Social History Tobacco Use Smoking status: Former Types: Cigarettes Smokeless tobacco: Never Tobacco comments: quit 2012 Substance Use Topics Alcohol use: Yes Comment: social Drug use: No ALLERGIES: Compazine [Prochlorperazine Edisylate] and Penicillins MEDICATIONS: citalopram hydrobromide (CELEXA) 10 mg tablet Take 10 mg by mouth once daily. baclofen (LIORESAL) 10 mg tablet Take 10 mg by mouth. OS-BRADEN 500+D 500 mg(1,250mg) -200 unit per tablet Take 1 tablet by mouth. dicyclomine (BENTYL) 20 mg tablet Take 20 mg by mouth every 6 hours. WOMEN'S ONE DAILY 18 mg iron-400 mcg-500 mg Ca tab Take by mouth. spironolactone (ALDACTONE) 25 mg tablet Take 25 mg by mouth once daily. traZODone (DESYREL) 50 mg tablet Take 50 mg by mouth. oxyCODONE-acetaminophen 5-325 mg tablet Take 1 tablet by mouth every 6 hours as needed. zolpidem 10 mg tab Take by mouth at bedtime as needed. ibuprofen 800 mg tablet Take 800 mg by mouth every 6 hours as needed. PHYSICAL EXAM: Ht 162.6 cm (5' 4 ) Wt (!) 149.1 kg (328 lb 9.6 oz) LMP 06/20/2013 BMI 56.40 kg/m All other systems deferred. GENERAL: Obese HABITUS: Obese GAIT: Antalgic KNEE EXAM: Left: Alignment: Stiff varus Range of motion is 0 degrees in extension and 115 degrees of flexion. Extension La degrees Pain with ROM: No Effusion: None Tender to the palpation of medial and lateral joint line Itband tenderness. Pain with patellar compression: No Stability: Anterior/Posterior stable and Varus/Valgus stable Hip Exam: flexion to 100+ degrees, full extension, internal/external rotation adequate and no pain with log roll Neurovascular Status: Sensation Intact and Moves foot and ankle up & down Pulses present. Negative Homans exam. Right: Alignment: Stiff varus Range of motion is 0 degrees in extension and 90 degrees of flexion. Extension La degrees Pain with ROM: No Effusion: None Tender to the palpation of medial and lateral joint line Itband tenderness. Pain with patellar compression: No Stability: Anterior/Posterior stable and Varus/Valgus stable Hip Exam: flexion to 100+ degrees, full extension, internal/external rotation adequate and no pain with log roll Neurovascular Status: Sensation Intact and Moves foot and ankle up & down. Pulses present. Negative Homans exam. DATA: Diagnostic tests reviewed for today's visit: Bilateral knee films obtained and reviewed today. Evidence of marked degenerative changes in the medial compartments bilaterally. Varus alignment bilaterally. Tricompartmental osteophytes. No joint effusions. The following conditions were addressed during the office visit today: Obesity - Weight management strategies were discussed including diet and exercise. A Consult to Weight Management will be completed to follow up on the plan of care. SIGNATURE: Jamie Yañez PA-C PATIENT NAME: Fredi Mckee DATE: November 20, 2022 TIME: 9:34 AM documented in this encounter [facility] 11-20-2022 Note HNO ID: [id number] Author: Jamie Yañez PA-C Service: ? Author Type: Physician Services Executive Type: Progress Notes Filed: 11/20/2022 4:50 PM Note Text: CONSULT ORTHOPAEDIC: KNEE PRIMARY CARE PHYSICIAN: Kala Conte REFERRING PROVIDER: No referring provider defined for this encounter. ASSESSMENT AND PLAN Impression: Bilateral Knee Severe Degenerative Osteoarthritis, Primary Obesity, BMI 56.40 Fredi is a 57 yo female with chronic bilateral knee pain and radiographic evidence of severe knee OA. We discuss maintaining conservative therapies until her health is better optimized in respect to her weight. She has worked with PCP in the past. Her Lbp is a barrier to exercise. She does not work with a urologist md. We discuss our Get Ready program. She is in agreement to this. We also discuss conservative therapy. She has had relief with injections in the past (last performed in April). Elected to perform bilateral CSIs. Please see separate procedure note for details. Aftercare discussed. She takes NSAIDs PRN and recommend she continue to use as needed given her recent creatinine. She should not be on NSAIDs prolonged. Physical therapy order has also been placed. After discussion with Fredi Mckee, continued non-operative management of physical therapy, injection(s), and referral to Get Ready program was chosen. The patient currently has had six months of unsuccessful non-operative treatment as outlined in the HPI below. The patient has been ordered: Physical therapy CONSULTS: Get Ready Program for weight management assistance. ACTIVE PROBLEM LIST Fibroid Uterus SUBJECTIVE CHIEF COMPLAINT: Knee Pain HPI: Fredi Mckee is a 57 year old patient here for evaluation and management of bilateral knee pain. Fredi Mckee has had progressive problems with the knee(s) constantly over the past 6 year(s) interfering with activities which include exercise, walking, rising from a sitting position, standing for prolonged periods of time, getting in and out of a car, and climbing stairs. Currently the pain in the joint is rated at 9 out of 10 with moderate activity. The pain is chronic and is located along the inside aspect and in the front. The pain is described as aching and severe. Relieving factors include rest. There is no specific incident that brought about this pain. Fredi Mckee also complains of stiffness. FUNCTIONAL STATUS: Walk a block or two on level ground (2.75 METs) Therapy to date - Ice or Heat: both OTC/Rx Medications (Topical/PO): Topical cream, she has not taken NSAIDs in the last month or so. 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 Fredi's estimated Length of Stay is 2 days (Inpatient candidate). Fredi's 30 day chance of readmission is 2.08%. Readmission Probability 2.08 % (within 30 days following surgery) Estimated LOS 2 days Discharge Disposition Probability D/C to Home 83.07 % D/C to SNF 16.93 % These calculations are based on the following factors: - 57 years of age - sex is not male - BMI of 56.4 kg/m2 - NarxCare score of 421 - 0 hospitalizations in the last 12 months - no history of heart disease - no history of diabetes - no history of COPD - no history of anemia - preoperative ambulation: independent community distances - 1 step(s) to enter home - bed location is on the first floor - bath location is on the first floor - caregiver is occassionally available 2-4 days / week - home is not more than 150 miles away - PROMIS-10 Mental Health T score 41-49 - Marital status: single REVIEW OF SYSTEMS: PAIN ASSESSMENT: See HPI. MUSCULOSKELETAL: See HPI. Risk Factors for Total Joint Arthroplasty (TJA) Obesity High Risk High: BMI > 40 Moderate: BMI 30-40 Normal: BMI < 30 Diabetes normal High: A1C > 8 Moderate: A1C 7-8 Normal: A1C < 7 Smoking normal High: Current smoker Normal: Non smoker Anemia normal High: Hgb < 11.5 (women) N/A: Hgb >= 11.5 (women) Nutritional Status normal High: Alb<3.4, or prealb<15, or serum transferrin<200, or total lymphocyte count<1500 Normal: normal labs COPD normal High: dx of COPD Normal: no dx of COPD MRSA normal High: dx of MRSA or positive lab test Normal: no MRSA CKD normal High: eGFR<60 Moderate: eGFR 60-89 Normal: eGFR>90 Hx of DVT / PE normal High: dx of DVT / PE Normal: no dx (more content not included)... [facility] 11-20-2022 Note HNO ID: [id number] Author: Stanley Martinez RT(R) Service: ? Author Type: Technologist Type: Progress Notes Filed: 11/20/2022 8:41 AM Note Text: Radiology Service Progress Note PATIENT NAME: Fredi Mckee DATE OF SERVICE: November 20, 2022 TIME: 8:40 AM PATIENT IDENTITY VERIFICATION COMPLETED USING TWO (2) IDENTIFIERS: Name and Date of confirmed by patient verbally. FALL SCREENING: Has the patient had 2 falls in the last year or 1 fall with injury or currently using an Ambulatory Assistive Device (Walker, Cane, Wheelchair, Crutches, etc.)? No PATIENT GENDER DATA: Female. status: : No status: NO. PATIENT RELEVANT IMPLANT DATA REVIEWED: Not Applicable RADIOLOGY DEPARTMENT: General X-ray: Exam(s) Completed: Lower Extremity X-Ray(s): Knee, AP / Lat / Tunne / Merchant Bilateral and Wt. Bearing PERIPHERAL IV DATA: Not applicable SIGNED BY: RT Quita(R) November 20, 2022 8:40 AM [facility] 11-20-2022 History of Present illness Narrative Radiology Service Progress Note PATIENT NAME: Fredi Mckee DATE OF SERVICE: November 20, 2022 TIME: 8:40 AM PATIENT IDENTITY VERIFICATION COMPLETED USING TWO (2) IDENTIFIERS: Name and Date of confirmed by patient verbally. FALL SCREENING: Has the patient had 2 falls in the last year or 1 fall with injury or currently using an Ambulatory Assistive Device (Walker, Cane, Wheelchair, Crutches, etc.)? No PATIENT GENDER DATA: Female. status: : No status: NO. PATIENT RELEVANT IMPLANT DATA REVIEWED: Not Applicable RADIOLOGY DEPARTMENT: General X-ray: Exam(s) Completed: Lower Extremity X-Ray(s): Knee, AP / Lat / Tunne / Merchant Bilateral and Wt. Bearing PERIPHERAL IV DATA: Not applicable SIGNED BY: RT Quita(R) November 20, 2022 8:40 AM documented in this encounter [facility] 07-06-2022 Note CONSULTATION PROCEDURE DATE: 07/06/2022 HISTORY: Patient returns to the office for preauthorized bilateral knee injections. PREOPERATIVE DIAGNOSIS: Bilateral knee osteoarthritis. POSTOPERATIVE DIAGNOSIS: Bilateral knee osteoarthritis. PROCEDURE: Bilateral knee steroid injections. Subsequent to obtaining informed consent, the patient was placed in the sitting and leg dependent dangling position. Alcohol prep was used to sterilize the anterior medial portion of each knee. Joint was identified. A 25 gauge needle with 0.125% Marcaine and 40 mg of Kenalog was injected into each knee. Negative heme. Medication was injected in a slow pattern, and patient had improvement of range of motion upon completion, following the injection. Patient tolerated the procedure well. [facility] 06-08-2022 Note CONSULTATION CONSULTATION DATE: 06/08/2022 HISTORY: This is a 56-year-old female who returns to the clinic status post bilateral knee injections completed on 02/15/2022. The patient received 60% relief for two weeks. Patient does present to the office very dyspneic and short of breath. She has recent history of being sick for approximately three months with asthma exacerbation, bronchitis and pneumonia. The patient is unable to speak more than 2-3 word phrases. She does share that she does albuterol breathing treatments at home six times daily. She has had recent ER visits x3 for shortness of breath. PHYSICAL EXAM: VITAL SIGNS: Blood pressure is 126/78. Heart rate is 52. Her oxygen on room air is 98%. GENERAL IMPRESSION: Due to her appearance, she will not be fully evaluated in the clinic today, and she will be sent directly to the emergency department. Patient is in agreement to this. LUNGS: I did auscultate her lungs with a stethoscope, and she has diffuse inspiratory and expiratory wheezes throughout. PLAN: Patient was offered assistance to the emergency department, but she prefers to drive herself. She prefers to go to [facility], but it is highly recommended to her to go to the emergency department here at [facility], across the parking lot. We will follow up with her and reschedule her for an appointment. [facility] 02-15-2022 Note CONSULTATION PROCEDURE DATE: 02/15/2022 PREOPERATIVE DIAGNOSIS: Bilateral knee osteoarthritis. POSTOPERATIVE DIAGNOSIS: Bilateral knee osteoarthritis. PROCEDURE: Bilateral knee steroid injections. Subsequent to obtaining informed consent, the patient was placed in a sitting position with legs dangling downward. Alcohol prep was used to sterilize both knees to the medial aspect. A 25 gauge spinal needle with 2 cc Marcaine, 40 mg of Kenalog, 1 cc of normal saline, with a total volume of 4 mL was used on each site. The needle was placed in the medial aspect with knee slightly displaced. Needle advanced. Negative heme in both locations and medication was slowly injected without resistance. Patient tolerated the procedure well with no overt complications, and she will be followed up in the clinic thereafter. [facility] 01-19-2022 Note CONSULTATION CONSULTATION DATE: 01/19/2022 HISTORY OF PRESENT ILLNESS: This is a very pleasant, 56-year-old female returning to the clinic for a three month follow up for chronic lower back pain, bilateral knee pain. She was last seen on 10/18/2021 which, at that time, she received Durolane injections bilateral knees. Patient reports that for the three days after the injection, the pain was greatly increased. She has received Marcaine and Kenalog injections in the past which she reports they were greatly beneficial. Patient still has right lower lumbar pain. She describes it as tight and achy. It is aggravated by prolonged twisting, turning, pushing, pulling, bending and lifting. She does alternate heat and ice which is beneficial to her. Current medications include Ambien, Cymbalta, Wellbutrin, Percocet 5/325 b.i.d. and tizanidine 4 mg q.h.s. Patient does have diffuse neuropathy to bilateral lower extremities that reach her toes and her feet. Patient's REVIEW OF SYSTEMS / PAST MEDICAL HISTORY / ALLERGIES and IMAGES have been reviewed and they are noted on the chart. PHYSICAL EXAM: VITAL SIGN: Blood pressure is 132/86. Heart rate is 86. Temperature is 96.9. She is 5'5, weighs 147 kg. GENERAL IMPRESSION: Pleasant, appropriate, no acute distress. FOCUSED EXAM - BACK: Range of motion is functional in lateral rotation and flexion/extension. There is no reproduction of spinal axial pain upon compression of the lumbar facets of L2, L3 and L4, L5 indicative of successful RFA. Right lumbar erector spinae paravertebral muscles are spasmodic, compression of this area reproduces patient's pain pattern today. Andrew's point is non-tender bilaterally with negative FABERs and compression test. MUSCULOSKELETAL: Motor is intact, 4/5 bilaterally. Patient ambulates with an antalgic gait, does not use assistive device. Tenderness to the anterior medial aspect of bilateral knees upon compression. Range of motion in flexion and extension is functional, somewhat guarded in flexion bilaterally. Negative crepitus or effusion appreciated. NEUROLOGICALLY: Diffuse neuropathy bilateral lower extremities reaching bilateral toes. Patellar reflexes are +1 bilaterally. DIAGNOSIS: Right lumbar paravertebral spasm, bilateral knee osteoarthritis, lumbar degenerative disc disease, lumbar spondylosis. PLAN: Today patient will receive right lumbar trigger point injection in two locations, which she does consent to in the office today. A U-Tox will be obtained as well. We will look ahead and schedule her for bilateral Marcaine and Kenalog knee injections in 2-3 weeks' time. No medication refills today. Vitamin importance as well as heat application and menthol heat rub was discussed. Patient agrees with the plan of care and will return in 2-3 weeks' time. [facility] 01-19-2022 Note CONSULTATION PROCEDURE DATE: 01/19/2022 PREOPERATIVE DIAGNOSIS: Right paravertebral lumbar spasms. POSTOPERATIVE DIAGNOSIS: Right paravertebral lumbar spasms. PROCEDURE: Right lumbar trigger point injection in two locations. Subsequent to obtaining informed consent, the patient was placed in the upright standing forward flexion position. Alcohol prep was used to sterilize the size. A 25 gauge needle with 0.125% Marcaine and 40 mg of Kenalog was divided into two locations for a total volume of 3 mL. The needle was placed to rest inside the trigger zone. Negative heme. Medications injected in a slow, fan-like pattern. Patient tolerated the procedure well, will be followed up in the clinic. [facility] 10-18-2021 Note CONSULTATION PROCEDURE DATE: 10/18/2021 PREOPERATIVE DIAGNOSIS: Osteoarthritis of the knees bilaterally, bilateral painful knees. POSTOPERATIVE DIAGNOSIS: Osteoarthritis of the knees bilaterally, bilateral painful knees. PROCEDURE: Bilateral Durolane 60 mg 3 cc injected to each knee. Subsequent to obtaining informed consent, the patient was placed in the sitting position. Alcohol prep was used to sterilize the site. The 25 gauge needle was advanced and it comes to rest in the right knee joint. Negative aspiration. Durolane 3 cc 60 mg of hyaluronic acid was injected into the knee. Next, attention was placed to the left knee, and once again Durolane 3 cc was injected. Negative heme. The patient tolerates the procedure well, without any overt complications. Performs range of motion exercises subsequent to this. [facility] Signed and Approved by: DR CADENCE LUKE . 11/01/2021 07:55:00 [facility] 10-06-2021 Note CONSULTATION CONSULTATION DATE: 10/06/2021 HISTORY OF PRESENT ILLNESS: This is a pleasant, 56-year-old female returning to the clinic for evaluation status post right gluteal trigger point injection on 08/25/2021. The patient received 85% relief and it is ongoing. Today, she has 10/10 pain to bilateral knees. She has bone on bone pathology and received bilateral knee steroid knee injections by Dr. Luke in July of 2021. She did get a significant amount of relief, but it was short lasting. Patient's pain is increased by lifting, ADLs, standing, walking and evening hours. She has been sedentary over the past couple days, due to her increase of pain. Today, she is requesting a Percocet refill. During her last appointment on 08/25/2021, she was started on dose Lyrica at 25 mg b.i.d. Patient noticed ever so slight difference with room for improvement. She denies any new radicular pain or vasomotor weakness. She does have chronic radiculopathy bilateral lower extremities to all 10 toes. Patient's REVIEW OF SYSTEMS / PAST MEDICAL HISTORY / ALLERGIES and IMAGES have been reviewed and they are noted on the chart. PHYSICAL EXAM: VITAL SIGNS: Blood pressure 154/86, heart rate is 58. Temperature is 96.8. She is 5'5 and weighs 149 kg. GENERAL APPEARANCE: Pleasant, appropriate, visually uncomfortable sitting in the chair. FOCUSED EXAM - BACK: Range of motion is functional in lateral rotation and flexion/extension. Paravertebral muscles are taut but non-spasmodic. No reproduction of spinal axial pain to direct compression along the posterior elements of the lumbar facets. Andrew's point is non-tender bilaterally. MUSCULOSKELETAL: Motor is intact, 4/5 bilaterally. Bilateral knees: Decreased range of motion with increased pain with flexion. No crepitus or effusion bilaterally. NEUROLOGICAL: Diffuse neuropathy to bilateral lower extremities including all 10 toes, concordant with L4, L5, S1 dermatome. Blunted bilateral patellar and Achilles reflexes. IMPRESSION: Bilateral knee osteoarthritis, lumbar spondylosis, lumbar degenerative disc, lumbar radiculitis. PLAN: We will authorize for bilateral knee Durolane injections. I believe this is the better path of care, seeing that very short term relief was established with steroid injection, and considering her pathology of being bone on bone. She was followed up with orthopedics, Dr. Ceasar Fernández, and felt at this time it was too early for bilateral knee replacements. We will increase her Lyrica to 50 mg b.i.d. Patient will be brought back to the clinic once authorization has been confirmed for her knee injections. Patient agrees with the plan of care and all questions answered. [facility] Signed and Approved by: ORVILLE PETERS . 10/19/2021 16:23:00 [facility] Evaluation + Plan note No data available for this section [facility] Evaluation note Diagnosis Chronic pain of both knees- Primary [facility] [place] Diagnosis Bilateral primary osteoarthritis of knee- Primary Class 3 severe obesity due to excess calories without serious comorbidity with body mass index (BMI) of 50.0 to 59.9 in adult (HCC) documented in this encounter [facility] note* Diagnosis Chronic pain of both knees documented in this encounter [facility] noteNo assessment information [facility] Work Phone: Hospital Discharge instructions No data available for this section [facility] available [facility] this [facility] Diagnostic Procedure Only (Routine) - Pending Review Specialty Diagnoses / Procedures Referred By Timmy singh Referred To Contact XR IMAGING Diagnoses Chronic pain of both knees Procedures XR KNEE GENERAL 4V AP BOTH/PA BOTH/LAT/MERC BILATERAL RADIOLOGIC EXAM KNEE COMPLETE 4/MORE VIEWS Jamie Yañez PA-C [address] [id number] Xr Imaging Referral ID Status Reason Start Date Expiration Date Visits Requested Visits Authorized [id number] Pending Review Auto-Generat ed Referral 11/03/2022 12/03/2023 1 1 [facility] for referral (narrative)* Diagnostic Procedure Only (Routine) - Closed Specialty Diagnoses / Procedures Referred By Timmy singh Referred To Contact XR IMAGING Diagnoses Chronic pain of both knees Procedures XR KNEE GENERAL 4V AP BOTH/PA BOTH/LAT/MERC BILATERAL RADIOLOGIC EXAM KNEE COMPLETE 4/MORE VIEWS Jamie Yañez PA-C [address] [address] Xr Imaging Referral ID Status Reason Start Date Expiration Date V isits Requested Visits Authorized [id number] Closed Auto-Generate d Referral 11/03/2022 12/03/2023 1 1 [facility] Summary Purpose Family History No Family History Records Found Relationship Condition Age at Onset Recorded Date/T cristal Not Specified Diabetes mellitus Unknown Malignant neoplasm of breast Unknown Hypertension Unknown Kidney disorder Unknown father Diabetes mellitus Unknown Malignant neoplasm of prostate Unknown grandparent Diabetes mellitus Unknown Advance Directives No Advanced Directives Records FoundNo Advanced Directives Records FoundNo Advanced Directives Records FoundNo Advanced Directives Records FoundNo Advanced Directives Records FoundNo Advanced Directives Records FoundNo Advanced Directives Records Found Reason for Referral Specialty Diagnoses / Procedures Referred By Timmy singh Referred To Contact [facility] Diagnoses Class 3 severe obesity due to excess calories without serious comorbidity with body mass index (BMI) of 50.0 to 59.9 in adult (HCC) Bilateral primary osteoarthritis of knee Procedures CONSULT TO PHYSICAL THERAPY PHYSICAL THERAPY EVALUATION HIGH COMPLEX 45 MINS Jamie Yañez PA-C [address] [address] [facility] [address] [place] [address] Referral ID Status Reason Start Date Expiration Date Visits Requested Visits Authorized [id number] Pending Review Auto-Generat ed Referral 11/20/2022 11/20/2023 1 1 Specialty Diagnoses / Procedures Referred By Timmy singh Referred To Contact Diagnoses Class 3 severe obesity due to excess calories without serious comorbidity with body mass index (BMI) of 50.0 to 59.9 in adult (HCC) Bilateral primary osteoarthritis of knee Procedures [facility] OFFICE/OUTPATIENT [facility] 60-74 MINUTES Jamie Yañez PA-C [address] [address] Referral ID Status Reason Start Date Expiration Date Visits Requested Visits Authorized [id number] Pending Review PCP Requested Referral 11/20/2022 11/20/2023 1 1 Medications Administered Section Inactive Administered Medications - up to 3 most recent administrations Medication Order MAR Action Action Date Dose Rate Site BUPivacaine (PF) 0.5 % (5 mg/mL) 4 mL injection 4 mL, Injection - FOR ORTHO USE ONLY, ONE TIME INJECTION, 1 dose, Starting on Sun11/20/22 at 1648, Until Sun11/20/22 at 1648 Given 11/20/2022 4:48 PM EDT 4 mL Knee, Left BUPivacaine (PF) 0.5 % (5 mg/mL) 4 mL injection 4 mL, Injection - FOR ORTHO USE ONLY, ONE TIME INJECTION, 1 dose, Starting on Sun11/20/22 at 1648, Until Sun11/20/22 at 1648 Given 11/20/2022 4:48 PM EDT 4 mL Knee, Right lidocaine (PF) 10 mg/mL (1 %) 4 mL injection (XYLOCAINE) 4 mL, Injection - FOR ORTHO USE ONLY, ONE TIME INJECTION, 1 dose, Starting on Sun11/20/22 at 1648, Until Sun11/20/22 at 1648 Given 11/20/2022 4:48 PM EDT 4 mL Knee, Left lidocaine (PF) 10 mg/mL (1 %) 4 mL injection (XYLOCAINE) 4 mL, Injection - FOR ORTHO USE ONLY, ONE TIME INJECTION, 1 dose, Starting on Sun11/20/22 at 1648, Until Sun11/20/22 at 1648 Given 11/20/2022 4:48 PM EDT 4 mL Knee, Right triamcinolone acetonide 80 mg injection (KeNALog 40) 80 mg, Injection - FOR ORTHO USE ONLY, ONE TIME INJECTION, 1 dose, Starting on Sun11/20/22 at 1648, Until Sun11/20/22 at 1648 Given 11/20/2022 4:48 PM EDT 80 mg Knee, Left triamcinolone acetonide 80 mg injection (KeNALog 40) 80 mg, Injection - FOR ORTHO USE ONLY, ONE TIME INJECTION, 1 dose, Starting on Sun11/20/22 at 1648, Until Sun11/20/22 at 1648 Given 11/20/2022 4:48 PM EDT 80 mg Knee, Right Additional Source Comments INFORMATION SOURCE (unrecogn ized section and content) DATE CREATED AUTHOR 10/16/2017 [facility] DATE CREATED AUTHOR AUTHOR'S ORGANIZ ATION 10/17/2017 [facility] DATE CREATED AUTHOR AUTHOR'S ORGANIZ ATION 04/14/2021 [facility] dical Specialist DATE CREATED AUTHOR AUTHOR'S ORGANIZ ATION 09/06/2022 [facility] DATE CREATED AUTHOR AUTHOR'S ORGANIZ ATION 11/21/2022 [facility] DATE CREATED AUTHOR AUTHOR'S ORGANIZ ATION 12/23/2022 [facility] DATE CREATED AUTHOR AUTHOR'S ORGANIZ ATION 04/01/2023 Otoniel Wilkerson [facility] Patient Care team informatio n (unrecognized section and content) Deli Clerk Relationship Specialty Start Date End Date Kala Conte PCP - General Family Medicine 06/18/17 Judson White [address] [place] [address] Referring 08/28/22 Deli Clerk Relationship Specialty Start Date End Date Kala Conte PCP - General Family Medicine 06/18/17 Judson White [address] [place] [address] Referring 08/28/22 Deli Clerk Relationship Specialty Start Date End Date Kala Conte PCP - General Family Medicine 06/18/17 Judson White [address] [place] [address] Referring 08/28/22 Source Comments (unrecognize d section and content) In the event this informatio n is protected by the Federal Confidentiality of Alcohol and Drug Abuse Patient Records regulations: The Federal rules restrict any use of the information to criminally investigate or prosecute any alcohol or drug abuse patient.[facility] [place] the event this information is protected by the Federal Confidentiality of Alcohol and Drug Abuse Patient Records regulations: The Federal rules restrict any use of the information to criminally investigate or prosecute any alcohol or drug abuse patient.[facility] [place] the event this information is protected by the Federal Confidentiality of Alcohol and Drug Abuse Patient Records regulations: The Federal rules restrict any use of the information to criminally investigate or prosecute any alcohol or drug abuse patient.[facility] Reason for Visit (unrecogniz ed section and content) Reason Comments Knee Pain Reason Comments Radio Gen A21 Specialty Diagnoses / Procedures Referred By Contac t Referred To Contact XR IMAGING Diagnoses Chronic pain of both knees Procedures XR KNEE GENERAL 4V AP BOTH/PA BOTH/LAT/MERC BILATERAL RADIOLOGIC EXAM KNEE COMPLETE 4/MORE VIEWS Jamie Yañez PA-C [address] [place] [id number] Xr Imaging Referral ID Status Reason Start Date Expiration Date V isits Requested Visits Authorized [id number] Closed Auto-Generate d Referral 11/03/2022 12/03/2023 1 1 Goals (unrecognized section and content) Goals may be documented in a n alternate section FOR RECORDS PERTAINING TO PATIENTS WHO ARE OR HAVE BEEN ENROLLED IN A CHEMICAL DEPENDENCY/SUBSTANCEABUSE PROGRAM, SOME INFORMATION MAY BE OMITTED. This clinical summary was aggregated from multiple sources. Caution should be exercised in using it in the provision of clinical care. This summary normalizes information from multiple sources, and as a consequence, information in this document may materially change the coding, format and clinical context of patient data. In addition, data may be omitted in some cases. CLINICAL DECISIONS SHOULD BE BASED ON THE PRIMARY CLINICAL RECORDS. [facility] [employer] [facility]. provides no warranty or guarantee of the accuracy or completeness of information in this document.
== END 2023-04-12 09:08 | disposition home or self-care (01) ==
LOC: SURGOUT 07:32
PROVIDERS: Visit Provider Anesthesiology Pain Medicine
PROC: (CPT 1991; principal; 2023-04-12 08:20)
DX: M17.11 Unilateral primary osteoarthritis, right knee (principal); M25.561 Pain in right knee
CPT/HCPCS: 64624; J1030; J2704

== ENCOUNTER 2023-05-01 07:01 | Day surgery (SDC) | payer MEDICARE, MEDICAID, SELFPAY ==
--- OUTSIDE RECORDS SUMMARY | 2023-05-01 07:05 | XMS_ITS | CCD ---
Author Name Unknown Address [address] [place] [address] Organization [facility] Care Team Providers Care Chorus Dancer Name Role Phone ELGAFY, HOMERO K Unavailable Unavailable ELGAFY, HOMERO K Unavailable Unavailable IMM, СВЕТЛАНА P Unavailable Unavailable IMM, СВЕТЛАНА P Unavailable Unavailable ELGAFY, HOMERO K Unavailable Unavailable ELGAFY, HOMERO K Unavailable Unavailable SELF, REFERRED Unavailable Unavailable IMM, СВЕТЛАНА P Unavailable Unavailable Imm, Светлана Carlisle Unavailable Unavailable VITA KING Unavailable Unavaila KALA Ramires Primary Care Physician GEMA ., DR CADENCE Hsu Attending Unavailable LUKE ., DR CADENCE Hsu Admitting Unavailable PETERS ., [place] Consulting Unavailable [facility] Unava ilable [facility] Consulting Unava ilable LUKE ., DR CADENCE Hsu Attending Unavailable [facility] Unava ilable PETERS ., [place] Consulting Unavailable LUKE ., DR CADENCE Hsu Admitting Unavailable [facility] Unava ilable EDITH, DR SOTOMAYOR Attending Unavailable EDITH, DR SOTOMAYOR Admitting Unavailable PAY ., DR GRIMM Consulting Unavailable EDITH, DR SOTOMAYOR Consulting Unavailable TROTTI, GIROLAMO Consulting Unavailable [facility] Unava ilable MARKER ., DR MENDOZA Attending Unavailable MARKER ., DR MENDOZA Admitting Unavailable MARKER ., DR MENDOZA Consulting Unavailable RISHABH MORENO Consulting Unavailable [facility] Unava ilable PETERS ., [place] Consulting Unavailable LUKE ., DR CADENCE Hsu Admitting Unavailable LUKE ., DR CADENCE Hsu Attending Unavailable [facility] Unava ilable PETERS ., [place] Consulting Unavailable LUKE ., DR CADENCE Hsu Attending Unavailable LUKE ., DR CADENCE Hsu Admitting Unavailable LUKE ., DR CADENCE Hsu Consulting Unavailable [facility] Unava ilable LUKE ., DR CADENCE Hsu Attending Unavailable LUKE ., DR CADENCE Hsu Admitting Unavailable [facility] Unava ilable LORRAINE .[place] Consulting Unavailable LUKE ., DR CADENCE Hsu Attending Unavailable LUKE ., DR CADENCE Hsu Admitting Unavailable LUKE ., DR CADENCE Hsu Consulting Unavailable LUKE ., DR CADENCE Hsu Attending Unavailable [facility] Unava ilable LUKE ., DR CADENCE Hsu Admitting Unavailable [facility] Unava ilable LAKSHMIPATHY ., NARENDRANATH Admitting [...] source) penicillin Drug Allergy 6 AOF [facility] (4 sources) prochlorperazine; Translations: [Compazine] Drug Allergy 4 AOF [facility] (10 sources) Penicillins; Translations: [penicillins] Drug allergy 4 Eruption of skin (disorder), Hives [facility] (4 sources) Prochlorperazine; Translations: [prochlorperazine] Drug Allergy 2 Unknown (qualifier value), Eruption of skin (disorder) [facility] (4 sources) Prochlorperazine; Translations: [PROCHLORPERAZINE EDISYLATE] Drug Allergy 4 Mental Status Change [facility] (1 source) Prochlorperazine Drug Allergy 2 [facility] Medications Current Medications Medication Drug [...] thereafter, # 42.5 gm, Refills(s) 11, Pharmacy: [id number], 163, cm, 04/14/21 10:37:00 EST, Height/Length Dosing, 148, kg, 04/14/21 10:37:00... Start Date: 04/14/21 Status: Ordered 120 actuat fluticasone propionate 0.22 mg/actuat metered dose inhaler (1 source) Corticosteroid Start: 01-25-2021 take 1 puff(s) by inhalation twice daily Flovent HFA 220 Aerosol = 1 puff(s), Inhalation, BID, Refills(s) 0 Start Date: 01/25/21 Status: Ordered fluticasone 0.05 mg/inh Nasal [place] (1 source) Start: 04-14-2021 fluticasone 0.05 mg/inh Nasal [place] Refill(s) 0 Start Date: 04/14/21 Status: Ordered [...] 01-25-2021 Chronic Other aftercare (1 source) Other care home (current) drug therapy; Translations: [OTH PRISON CURRENT DRUG THERAPY] Onset: 09-06-2022 Episodic Other [...] Range Facility Physician Referralon 023 Physician Referral [phone] 10 [id number]#[id number] 0TIFF Normal [facility] CNOVon 11-20-2022 CNOV Office Visit (ORTHMN ) FREDI MCKEE ([id number]) 1965 F [place] Date Time Provider Department [...] exercise. 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 We discuss our Get Ready program. 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 Normal [facility] XR KNEE 4V AP/PA/LAT/MERCH B ILon [...] 4V AP/PA/LAT/MERCH ARON COMPARISON: None RESULT: Marked [id number] medial compartment narrowing bilaterally with genu varus deformities. Tricompartmental osteophytes bilaterally. No fractures. No joint effusions. 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 No other significant abnormality. - IMPRESSION: MARKED DEGENERATIVE CHANGES IN THE MEDIAL COMPARTMENTS BILATERALLY Software Implementation Specialist: MARYB Transcribe Date/Time: Nov 20 2022 8:42A Dictated by : ERASMO VALENTE MD This examination was interpreted and the report reviewed and electronically signed by: ERASMO VALENTE MD on Nov 20 2022 8:43AM EST [id number] Normal [facility] XR KNEE GENERAL 4V AP BOTH/P A BOTH/LAT/MERC BILATERALon 11-20-2022 [facility] BNPon 09-05-2022 Natriuretic peptide B (Bld) [Mass/Vol] 29.0 pg/mL Normal <=900.0 [facility] Comment on above: Performed By: #### H STROPN, BNP, CMP ####[facility] [address] [place], [place] [address]ZvDr. Merlene Carr CBC AUTO DIFFon 09-05-2022 BASO # 0.1 103/ul Normal 0.0-0.1 [facility] Comment on above: Performed By: #### C BC #### [facility] [address] [address] [address] Merlene Carr Basophils/100 WBC (Bld) 0.5 % Normal 0.2-2.0 [facility] Comment on above: Performed By: #### C BC #### [facility] [address] [address] [address] Merlene Carr EO # 0.6 103/ul Normal 0.0-0.7 [facility] Comment on above: Performed By: #### C BC #### [facility] [address] [address] [address] Merlene Carr Eosinophils/100 WBC (Bld) 4.9 % Normal 0.9-7.0 [facility] Comment on above: Performed By: #### C BC #### [facility] [address] [address] [address] Merlene Carr Erythrocyte distribution width (RBC) [Ratio] 14.0 % Normal 11.0-15.0 [facility] Comment on above: Performed By: #### C BC #### [facility] [address] [address] [address] Merlene Carr Hematocrit (Bld) [Volume fraction] 41.4 % Normal 36.0-48.0 [facility] Comment on above: Performed By: #### C BC #### [facility] [address] [address] [address] Merlene Carr Hemoglobin (Bld) [Mass/Vol] 13.0 g/dL Normal 12.0-16.0 [facility] Comment on above: Performed By: #### C BC #### [facility] [address] [address] [address] Merlene Carr IG # 0.05 10e3/ul Critically high 0.00-0.03 [facility] Comment on above: Performed By: #### C BC #### [facility] [address] [address] [address] Merlene Carr IG % 0.4 % Normal 0.0-0.5 [facility] Comment on above: Performed By: #### C BC #### [facility] [address] [place] [address] Dr. Merlene Carr LYMPH # 3.2 103/ul Normal 1.2-3.8 [facility] Comment on above: Performed By: #### C BC #### [facility] [address] [place] [address] Dr. Merlene aCrr Lymphocytes/100 WBC (Bld) 27.2 % Normal 20.5-60.0 [facility] Comment on above: Performed By: #### C BC #### [facility] [address] [place] [address] Dr. Merlene Carr MANUAL DIFF REQ NO Normal [facility] Comment on above: Performed By: #### C BC #### [facility] [address] [place] [address] Dr. Merlene Carr MCH (RBC) [Entitic mass] 26.7 pg Normal 26.7-34.0 [facility] Comment on above: Performed By: #### C BC #### [facility] [address] [place] [address] Dr. Merlene Carr MCHC (RBC) [Mass/Vol] 31.4 g/dL Normal 29.9-35.2 [facility] Comment on above: Performed By: #### C BC #### [facility] [address] [place] [address] Dr. Merlene Carr MCV (RBC) [Entitic vol] 85.0 fL Normal 81.0-99.0 [facility] Comment on above: Performed By: #### C BC #### [facility] [address] [place] [address] Dr. Merlene Carr MONO # 1.0 103/ul Critically high 0.3-0.8 [facility] Comment on above: Performed By: #### C BC #### [facility] [address] [address] [address] Merlene Carr Monocytes/100 WBC (Bld) 8.8 % Normal 1.7-12.0 [facility] Comment on above: Performed By: #### C BC #### [facility] [address] [place] [address] Dr. Merlene Carr NEUT # 6.9 103/ul Critically high 1.4-6.5 [facility] Comment on above: Performed By: #### C BC #### [facility] [address] [place] [address] Dr. Merlene Carr Neutrophils/100 WBC (Bld) 58.2 % Normal 43.0-75.0 [facility] Comment on above: Performed By: #### C BC #### [facility] [address] [place] [address] Dr. Merlene Carr Platelet mean volume (Bld) [Entitic vol] 10.2 fL Normal 9.5-13.5 [facility] Comment on above: Performed By: #### C BC #### [facility] [address] [place] [address] Dr. Merlene Carr PLT 392 103/ul Normal 150-450 [facility] Comment on above: Performed By: #### C BC #### [facility] [address] [place] [address] Dr. Merlene Carr RBC 4.87 106/ul Normal 4.20-5.40 [facility] Comment on above: Performed By: #### C BC #### [facility] [address] [place] [address] Dr. Merlene Carr WBC 11.8 103/ul Critically high 4.0-11.0 [facility] Comment on above: Performed By: #### C BC #### [facility] [address] [address] [address] Merlene Carr CULTURE SPUTUMon 09-05-2022 CULTURE SPUTUM Culture Observations : NORMAL RESPIRATORY MARGARITO. FINAL TO FOLLOW. Normal [facility] Comment on above: Performed By: #### S PUTCX #### [facility] [address] [address] [address] Merlene Carr PROF 14(COMP METB)on 023 Albumin [Mass/Vol] 3.6 g/dL Normal 3.4-5.0 [facility] Comment on above: Performed By: #### H STROPN, BNP, CMP ####[facility] [address] [id number] Carr Albumin/Globulin [Mass ratio] 0.9 {ratio} [facility] Comment on above: Performed By: #### H STROPN, BNP, CMP ####[facility] [address] [address]Dr. Merlene Carr ALP [Catalytic activity/Vol] 74 U/L Normal 46-116 [facility] Comment on above: Performed By: #### H STROPN, BNP, CMP ####[facility] [address] [id number]. Merlene Carr ALT [Catalytic activity/Vol] 35 U/L Normal 14-59 [facility] Comment on above: Performed By: #### H STROPN, BNP, CMP ####[facility] [address] [id number]. Merlene Carr Anion gap [Moles/Vol] 16.8 mmol/L Normal [facility] Comment on above: Performed By: #### H STROPN, BNP, CMP ####[facility] [address] [id number]. Merlene Carr AST [Catalytic activity/Vol] 24 U/L Normal 15-37 [facility] Comment on above: Performed By: #### H STROPN, BNP, CMP ####[facility] [address] [id number] Carr Bilirubin [Mass/Vol] 0.2 mg/dL Normal 0.2-1.0 [facility] Comment on above: Performed By: #### H STROPN, BNP, CMP ####[facility] [address] [address]Dr. Merlene Carr Calcium [Mass/Vol] 9.7 mg/dL Normal 8.5-10.1 [facility] Comment on above: Performed By: #### H STROPN, BNP, CMP ####[facility] [address] [address]Dr. Merlene Carr Chloride [Moles/Vol] 106 mmol/L Normal 98-107 [facility] Comment on above: Performed By: #### H STROPN, BNP, CMP ####[facility] [address] [place], [place] [address]Dr. Merlene Carr CO2 [Moles/Vol] 25.3 mmol/L Normal 21.0-32.0 [facility] Comment on above: Performed By: #### H STROPN, BNP, CMP ####[facility] [address] [place], [place] [address]Dr. Merlene Carr Creatinine [Mass/Vol] 1.14 mg/dL Critically high 0.55-1.02 [facility] Comment on above: Performed By: #### H STROPN, BNP, CMP ####[facility] [address] [place], [place] [address]Dr. Merlene Carr EGFR-AF [place] 60 mL/min/1.73m2 Normal >=60 [facility] Comment on above: Performed By: #### H STROPN, BNP, CMP ####[facility] [address] [place], [place] [address]Dr. Merlene Carr EGFR-NON AF [place] 49 mL/min/1.73m2 Critically low >=60 [facility] Comment on above: Performed By: #### H STROPN, BNP, CMP ####[facility] [address] [address]Dr. Merlene Carr Globulin (S) [Mass/Vol] 4.2 g/dL Normal [facility] Comment on above: Performed By: #### H STROPN, BNP, CMP ####[facility] [address] [address]Dr. Merlene Carr Glucose [Mass/Vol] 95 mg/dL Normal 74-106 [facility] Comment on above: Performed By: #### H STROPN, BNP, CMP ####[facility] [address] [address]Dr. Merlene Carr Potassium [Moles/Vol] 4.1 mmol/L Normal 3.5-5.1 [facility] Comment on above: Performed By: #### H STROPN, BNP, CMP ####[facility] [address] [address]Dr. Merlene Carr Protein [Mass/Vol] 7.8 g/dL Normal 6.4-8.2 [facility] Comment on above: Performed By: #### H STROPN, BNP, CMP ####[facility] [address] [address]Dr. Merlene Carr Sodium [Moles/Vol] 144 mmol/L Normal 136-145 [facility] Comment on above: Performed By: #### H STROPN, BNP, CMP ####[facility] [address] [address]Dr. Merlene Carr Urea nitrogen [Mass/Vol] 10.0 mg/dL Normal 7.0-18.0 [facility] Comment on above: Performed By: #### H STROPN, BNP, CMP ####[facility] [address] [address]Dr. Merlene Carr Urea nitrogen/Creatinine [Mass ratio] 8.8 mg/mg Normal [facility] Comment on above: Performed By: #### H STROPN, BNP, CMP ####[facility] [address] [address]Dr. Merlene Carr SPUTUM GRAM STAINon 09-06-19 23 COMMENTS [facility] Comment on above: Performed By: #### S PUTGS #### [facility] [address] [address] [address] Merlene Carr DIPHTHEROIDS Normal [facility] Comment on above: Performed By: #### S PUTGS #### [facility] [address] [address] [address] Merlene Carr EPITHELIALS >25 Normal [facility] Comment on above: Performed By: #### S PUTGS #### [facility] [address] [address] [address] Merlene Carr FUNGAL ELEMENTS Normal [facility] Comment on above: Performed By: #### S PUTGS #### [facility] [address] [address] [address] Merlene Carr GRAM NEG BACILLI Normal [facility] Comment on above: Performed By: #### S PUTGS #### [facility] [address] [address] [address] Merlene Carr GRAM NEG DIPPLOCOCCI Normal [facility] Comment on above: Performed By: #### S PUTGS #### [facility] [address] [address] [address] Merlene Carr GRAM POS BACILLI Normal [facility] Comment on above: Performed By: #### S PUTGS #### [facility] [address] [address] [address] Merlene Carr GRAM POSITIVE COCCI FEW Normal [facility] Comment on above: Performed By: #### S PUTGS #### [facility] [address] [address] [address] Merlene Carr WBC (Bld) [#/Vol] 10*3/uL Normal [facility] [place] Comment on above: Performed By: #### S PUTGS #### [facility] [address] [address] [address] Merlene Carr TROPONIN, HIGH SENSITIVITYon 09-05-2022 HSTROP 9.6 pg/mL Normal 4.0-51.3 [facility] Comment on above: Result Comment: CUT- OFF POINTS HAVE BEEN ESTABLISHED BASED ON THE FOURTH UNIVERSAL DEFINITIONS OF MYOCARDIAL INFARCTION. THE UPPER REFERENCE LIMIT (URL) OF TROPONIN, DEFINED THE 99TH PERCENTILE OF cTnI DISTRIBUTION IN A REFERENCE POPULATION, HAS BEEN CONFIRMED THE DECISION THRESHOLD FOR IA DIAGNOSIS. Performed By: #### H STROPN, BNP, CMP ####[facility] [address] [place], [place] [address]Qy. Merlene Carr XR CHEST 2 Von 09-05-2022 [...] RISHABH MORENO Date: 2022-09-04 22:55 Normal [facility] Coding Summary.on 08-05-2022 Coding Summary. CD:[id number] Ww +PGhlYWQ+AP4WHEOcV19ek XHluJ3uR9OBUVeKMuxyXXS GVRnKDhCaqbUoJY6utLTuA XJu IC8+CI2dWNTmPsakbGPkl6 D8sGS8E07gjn1nHZtwuHA2 GWMxKzRadsqvm8fywBe2ZG cuNmluOyBt AFNcdG89DLF7mL26Oa60xZ RvkIHsp1cfpDl1AmIfNUSy XLS4kLysWCdgw7IqYATaL3 4zgXFtl4C3 DTOnmVojyIHkOsMyoUN0kA 0jABnjkxkkw1nptkedNzf6 bf88vHSuq9H7yTW7D3Jooy S5UCAdaEMq ZddgnQLQlV4gzyspa5epsk zmQnHkJPYvRJr7EDe5IHWq cHswDbXgLA18YRI3BSLgre PxN4BnNCMy xIyrIuM6x2Q9Gl4HI7GXNv ioT3HGPOZCDZhniCJ+PC90 vr94Z0OzPyhlPey3XTIjGC U7hSA9lK3k CORmYVnfg7Q2mWI0I1Rjmu Agsg6no3slEKTgNCbgM44b qSKbj9Q3OETvhPJ3IKZeoB iwDfHgmZ18 Oyc+TIPqfUkfh8PzIccdr1 xmm1snuTp7PghmPBUahtJo yNptUWS0h6OvPl7dVIRicX Z0oFL2oG4s HrQhQyU1FMvmV110NxUwuK FnApyzI60pO1KqwVQ+PHRy Nac1QQRfiZetRP6zB6YtPK RpbmctbGVm cMbbDB8gBTClrqczTMGrlG 6yUZVzU4i6FjOrWiP2MZgt Z1WbIWDfmxwbEs34yL1kSv EzQzI5QIet V1FgowY0ICKqpEJjVIfyUC H5H65md7P8GMEpMOLyRHD2 tVZ7zH4cuIxhrybuqZSpjK sgdmVydGlj QGoaIOojZ910CLJrjAzfEb NvZGluZyBEYXRlOiAgMDQv MTUvMjAyMzwvdGQ+PHRkIH B5bQyyCJOm qAVaNFntId2dhBprcTbkVR 3sLRJiqxcwIMTrzT3wTLTh jSPtyNjsWP8bIZRwhpebl1 21RvLbSHF8 BOSluTYcL7CiyR9sQfEjBQ YrLBNlY8HamJDuCXcsW122 NIhyZyU7YZQwsdWpM2AyBF FsaWduOiB0 j4O8Vj2Oi1DuuzdzH3XvwR CxSdGfJpdxQDd8A6XuKvvd dHI+MW38GKVtOY43VTk3LG U8iDbaPCwu FQMhF3TmrV0yObTtAPFtUQ RkOyc+PHRhYmxlIHdpZHRo PDyeBGHnNbIkaOxcUW9gEp 9yZGVyLWNv bEtnmPOkRcKff6boIPVmRZ xlGC2jdQaxU6FtrPG9JXSj l5g1Zg62H92jB8NkjLK+PG UvmZL5rLA0 wF4wOhEoDzN1EHcuE427Qh CkfFYnKzzss5yxq3offJl0 AgV6MJDndrSqgOxvRGY0l3 JfMo13W56r IHdpZHRoPSIxNSUiIHZhbG ggvc0esF0mDc4+PGNvbCB3 sQW3gF9hLaTmYiV9ZKepN1 49InRvcCIv Tmhot8jpo1utwSx8AfQbKN OpgyZwjHwhGFW2g7SsBe96 I0MtuGhmi7WuVwq7do32rH Vqg1N0xXZ2 O9FkJJKxraxipAXvfDizDO 5kJNYbginmQJJzpR5nAWGo L2w0QyYyMlN7WJynC1Wykq E6LEQsbJCm IUXiwFCAqM2ytfyqj6ppzc xrCcTqPCUgISi8BDl3HHBt yRfuZlNwODP1EmT5ZMV1nL CqqQ7umNua wooqpE9bKch+ILF9vVOkpA JKCV1cVaparRX+PHRkIHN0 dJdkCIsoFXKrjD9yBHVjI4 t7NrHyQeZ3 AJliI6JdiuO5ZTEtrOOdBZ UfwAJEcE1lzmkmo6ckvnjy VkJpYWDxQVw3TAu6XYJafP duOiBsZWZ0 LoJ3QBN1sEZgpL3xeAytmu xvqI1jMpk+QmlydGggRGF0 OUj4C0ZfHct1ULIosVynEL 0ncGFkZGlu Fa5tvKvwyXfsKO0nVSBgor dtc434ClEwl6tbTIBaxLOm AQttLYZ4K71co2Q3MTImEH LaHLY5hOG9 aC1trIbfsdgmtWTygYahzd QmvWbdPRvnUFjbU513CDAs mQewNnJwOTa8W6CfXtm4OC YiiBroGC9w oPLfDJzpNo5pdDjeqFatKC 5tEBZearolg053WpBkz1ys ADBmzNXlWKpvFUX7Z79lx6 Q4SCKfVGQs QVO2zLZ2rF7eeIxtwqbftJ VmdDsgdmVydGljYWwtYWxp W497QGHtvQheKnUuqPy5O2 ZyLkv1TRMr sPbuAV4upPHnBEpwNa5tmJ inaAkeMR2aRYKspbsqz079 OoWov6xaXUIamEVaPNabYD D6Z02yf3Z3 OHEwRPWuOJQ5oFE6qD3dxD lnbjogbGVmdDsgdmVydGlj FPpeDUgeP667KQTcaVtoLy BhdGllbnQg NFmoMVw5O7OrWomejOD+PC 14KZXqNX00jYMraPOlm6qp oKr7XnCmWLKwDAU8tIutFO lrl2BlSROu R55duNSjy3Z4HASceBuflG WaGlKuqFY2fH7pFQzzaazd y0dzupghQnffq7jqbi35dH 12I36gUZis ZHRoPSIzMCUiIHZhbGlnbj 7muB9wPf7+LKNjuVB0eLP5 iF8dAHIxPuS6OVhkT740De RvcCIvPjxj t7pdk2xeeYz8GkY7SXDxug RbbTvdONP8q0OiAp86E69v IHdpZHRoPSIyMCUiIHZhbG cvgz9szK3y Ii8+AMDldMY0mWA4kK6sRq BrUmU5MKffR637KxHfhRTp OycbD61sS1SqtJA+PHRyPj w5SKAweXbs WI1woQMjGDbdQh1mLCD1Aq NoIaTiOQqeD6MhHHOxtban gkpfqJM9FVEsXLKkmX39Vi 9udDogMTBw yIUHdT3kujupv6ndjchrVh UwIFMhUMr3TIm3PZLmmWna JrWxXZP3LoM8THL4sUPwvT 1hbGlnbjog yN2aZ8TpEAXsspmkHf07wB 2gRyQzPtM1BGpuInp+Sk9I TlNPTiwgWkVTVEEgQjwvdG Q+PHRkIHN0 wBmzXMdkYQDicZ5sEEZrV2 i7QvUuRfE8HFvrZ8PkZVZq ahffPr78eC7lXdQqQlI8HN piR9WnhnX1 WQVdnYXgUYmxUZG2Y13ay5 N5GBFsJKVyXBT4pYC1rO2e bGlnbjogbGVmdDsgdmVydG ljYWwtYWxp U697TWYgyPoqTbSbRiU7Nw B7Uah5K7TrEaa9JSNbeGql TN2fyTGuYVkoLt3frRuayY heKT4yAKZw uitbSNCooL0yDZJchEFgyH voLR3uJYDllvkog931PjQu WPO7JUYjjQZeA5JjzT4iXe AjMDAwMDAw H8WgkIZfYTgkG594TLnpZl K1DTIrxpSbI1WhYTCzsHhz ScY4s7E3Dd92INRVCCTrio wvdGQ+PHRk RUL0oUvjRGgqACHwrX8bAO HsR8w9XmHtIdE5XGnvO2Ss JJXgxkciGm11aP6yJgOvPh C2DFcbO2Ea mbZ9QNShbJDzWUlsMGI0R4 0br5C6OBFyQFMaWUV8fFR1 qP7mdVhivniaoVVsdTudsy VydGljYWwt PPfkI458WYQyrBijUqTwtU FsZTwvdGQ+CSOeSCX8eTnm OQrpCGNmtG0mLXSsW2j2Tc MtWiV3DWxj G6NkTXChqlzbBg72oG0pYi OeLcJ3NLlwL5HphoR1RHLt cLJeVVbvHDU8G42fx2E0VC MwMDAwMDA7 jGW9tU3crMtexipicYWmzN krhgDqyYyeNUatJMscJ239 AFXtiApnOs59jVLzrYuhps X9V2WdHjwo dHI+NS57XNVqTF10qYKkpP Ptc3tilMz4JdIaJBJsOGJ7 sGayZTpib8KjRPFdH34zvI Dyz0I2XUEs sVirzNDyEoSciQT4pT5vXX whqbcth8ugiocfYrlmx4cp od02jI37O28jLCghGIWbHF IzMCUiIHZh kLtwzn0bzB4pNi0+PGNvbC W4lWQ9xS7tUlOmZeP9HSja N309MgMhxOSnKpxet0fte9 nrgCe0NiGs WBKwbvJwmUcgYKV2e6OvHj 72C85sNFyyYUSdICZaAWPz NPCkoMqcqn1myK0mZu9+PC 2aw7gysm60 zN47bTW+SRFqZEY1yXsqPZ ddJTHkkC6vRUmfScK0TLMe ZrLjcG43sBJyMAelIj8dyJ wmaUmaRK1y TUAfxkphy580CnOys1riXA TrnSEkBWuyWKT4D08dt7A6 TZKcWEHyPVT7vEG5eQ7okO lnbjogbGVm dDsgdmVydGljYWwtYWxpZ2 25RHFmhJtuLpYalNOrQ4wl xfNRSV1xLhmgvOI+PHRkIH Y2qWuxOJee XAFbpH3tVZKkR2b8JmZsBu K5PPwgL0EmvoM6LOBmiCZm KUBtxYSCuL0wslreb3slja ogIzAwMDAw CZa8ZXc8LQIevYdlWcDqOM E0AwQ0SZY6gKMrlG8qtHeh ounakB8mHgr+RklOOjwvdG Q+PHRkIHN0 uDgwNKwyGJWgwD8tVSSeM1 c1GcLcQhZ0QNtpO6BfohY0 ZZFfmDSdYMTpdPGXzR9sdc cxx9ipmysv RtTwZZJmEPe6YUp0YTIcrC xkYyOmDAJ4GeG9UIW6dJQi lJ5bqAquqjikcR3dGbu+TV JOOjwvdGQ+ SYIhYUW0kGtwBQbqDIKvhN 9sCBQxQ0y3VpUzScX8AUnj M6MhapW1EUEksURlFMBvvV EQxF6pniml c4pepeolMlBoZYBnFAa5XQ f5VFSxyUikSnOwZLY5VuF9 KWJ3bNGtyH7ndBbrvrfvcG 9wOyc+UGF5 PAE7AQ67TZ28S7JnEduhjG FibGU+PHRhYmxlIHdpZHRo GGtnQYLiOuFrkRilGC4lEy 9yZGVyLWNv bGxhcHNl (more content not included)... Normal [facility] CT Maxillofacial w/o Contras ton [...] MD Transcribed by: ABNER Technologist: RYDER Normal [facility] Consent for Treatmenton 07-22 Consent for Treatment [id number] 0CD:127 Normal [facility] Physician Orderon 07-25-2022 Physician Order [id number] 0CD:127 Normal [facility] Physician Orderon 06-26-2022 Physician Order [id number] 0CD:127 Normal [facility] XR CHEST 2 Von 04-19-2022 [...] Jorden STALEY Date: 2022-04-19 19:45 Normal [facility] Q - ALLERGEN INTERPon 2020 INTERPRETATION SEE NOTE Normal [facility] Administrative Executive Comment on above: Order Comment: [facility] performed at: QPT, [facility], [address], [address] [facility], [place], [address], Dispensing And Measuring Optician: Velasquez Caldwell MD [facility] Date/Time: [facility] [...] analytical performance characteristics have been determined by [facility]. It has not been cleared or approved by the U.S. Food and Drug Administration. This assay has been validated pursuant to the CLIA regulations and is used for clinical purposes. Performed By: #### % SBRAST, [id number] #### [facility] Default [address] [place] [address] Q - RESP ALLERGY PROFILE REG ION Von 04-11-2021 ALTERNARIA ALTERNATA (M6) IGE <0.10 Normal [facility] Administrative Executive Comment on above: Order Comment: [facility] Testing performed at: [employer] [facility], [address] [place] [address], [address] [place] [address], [phone], Dispensing And Measuring Optician: Velasquez Caldwell MD [facility] Collection Date/Time: [facility] Results Received Date/Time: [facility] Reported Date/Time: Performed By: #### % SBRAST, [id number] #### [facility] Default [address] [place] [address] ASPERGILLUS FUMIGATUS (M3) IGE <0.10 Normal [facility] Administrative Executive Comment on above: Order Comment: [facility] performed at: [employer] [facility], [address] [facility], [address] [place] [address], [phone], Dispensing And Measuring Optician: Velasquez Caldwell MD [facility] Collection Date/Time: [facility] Results Received Date/Time: [facility] Reported Date/Time: Performed By: #### % SBRAST, [id number] #### [facility] Default [address] [place] [address] BERMUDA GRASS (G2) IGE <0.10 Normal [facility] Administrative Executive Comment on above: Order Comment: [facility] Testing performed at: [facility], [employer], [address] , [address] [place] [address], , Dispensing And Measuring Optician: Velasquez Caldwell MD [facility] Collection Date/Time: [facility] Results Received Date/Time: [facility] Reported Date/Time: Performed By: #### % SBRAST, [id number] #### [facility] Default [address] [place] [address] BIRCH (T3) IGE <0.[address] [facility] Specialist Comment on above: Order Comment: [facility] Testing performed at: QPT, [employer] [employer], [address] , [address] [place] [address], , Dispensing And Measuring Optician: Velasquez Caldwell MD [facility] Collection Date/Time: [facility] Results Received Date/Time: [facility] Reported Date/Time: Performed By: #### % SBRAST, [id number] #### [facility] Default [address] [place] [address] CAT DANDER (E1) IGE <0.10 Normal [facility] Specialist Comment on above: Order Comment: [facility] Testing performed at: [facility], [employer], [address] , [address] [place] [address], [phone], Dispensing And Measuring Optician: Velasquez Caldwell MD [facility] Collection Date/Time: [facility] Results Received Date/Time: [facility] Reported Date/Time: Performed By: #### % SBRAST, [id number] #### [facility] Default [address] [place] [address] CLADOSPORIUM HERBARUM (M2) IGE <0.[address] [facility] Specialist Comment on above: Order Comment: [facility] Testing performed at: QPT, [employer] [employer], [address], [address] [place] [address], [address] [place] [address], Dispensing And Measuring Optician: Velasquez Caldwell MD [facility] Collection Date/Time: [facility] Results Received Date/Time: [facility] Reported Date/Time: Performed By: #### % SBRAST, [id number] #### [facility] [address] [place] [address] CLASS 0/1 Normal [facility] Comment on above: Order Comment: [facility] Testing performed at: [facility], [employer] [facility], [address] [place] [address], [address] [place] [address], [address] [place] [address], Dispensing And Measuring Optician: Velasquez Caldwell MD [facility] Collection Date/Time: [facility] Results Received Date/Time: [facility] Reported Date/Time: Performed By: #### % SBRAST, [id number] #### [facility] Default [address] [place] [address] CLASS [address] [facility] Specialist Comment on above: Order Comment: [facility] Testing performed at: [facility], [employer] [facility], [address] [place] [address], [address] [place] [address], [address] [place] [address], Dispensing And Measuring Optician: Velasquez Caldwell MD [facility] Collection Date/Time: [facility] Results Received Date/Time: [facility] Reported Date/Time: Performed By: #### % SBRAST, [id number] #### [facility] Default [address] [place] [address] COCKROACH (I6) IGE <0.10 Normal [facility] Comment on above: Order Comment: [facility] Testing performed at: QPT, [facility], [address] [place] [address], [address] [place] [address], [address] [place] [address], Dispensing And Measuring Optician: Velasquez Caldwell MD [facility] Collection Date/Time: [facility] Results Received Date/Time: [facility] Reported Date/Time: Performed By: #### % SBRAST, [id number] #### [facility] Default [address] [place] [address] COMMON RAGWEED (SHORT) (W1) IGE <0.10 Normal [facility] Administrative Executive Comment on above: Order Comment: [facility] Testing performed at: [facility], [facility], [address] [place] [address], [address] [place] [address], [address] [place] [address], Dispensing And Measuring Optician: Velasquez Caldwell MD [facility] Collection Date/Time: [facility] Results Received Date/Time: [facility] Reported Date/Time: Performed By: #### % SBRAST, [id number] #### [facility] Default [address] [place] [address] COTTONWOOD (T14) IGE <0.10 Normal [facility] Specialist Comment on above: Order Comment: [facility] Testing performed at: [facility], [facility], [address] [place] [address], [address] [place] [address], [address] [place] [address], Dispensing And Measuring Optician: Velasquez Caldwell MD [facility] Collection Date/Time: [facility] Results Received Date/Time: [facility] Reported Date/Time: Performed By: #### % SBRAST, [id number] #### [facility] Default [address] [place] [address] DERMATOPHAGOIDES FARINAE (D2) IGE 0.11 kU/L High [facility] Administrative Executive Comment on above: Order Comment: [facility] Testing performed at: [facility]ub, [facility], [address] [place] [address], [address] [place] [address], [address] [place] [address], Dispensing And Measuring Optician: Velasquez Caldwell MD [facility] Collection Date/Time: [facility] Results Received Date/Time: [facility] Reported Date/Time: Performed By: #### % SBRAST, [id number] #### [facility] Default [address] [place] [address] DERMATOPHAGOIDES PTERONYSSINUS (D1) IGE 0.14 kU/L [facility] Specialist Comment on above: Order Comment: [facility] Testing performed at: [facility], [facility], [address] , [address] [place] [address], [address] [place] [address], Dispensing And Measuring Optician: Velasquez Caldwell MD [facility] Collection Date/Time: [facility] Results Received Date/Time: [facility] Reported Date/Time: Performed By: #### % SBRAST, [id number] #### [facility] Default [address] [place] [address] DOG DANDER (E5) IGE <0.10 Normal [facility] Comment on above: Order Comment: [facility] Testing performed at: [facility], [facility], [address] , [address] [place] [address], [address] [place] [address], Dispensing And Measuring Optician: Velasquez Caldwell MD [facility] Collection Date/Time: [facility] Results Received Date/Time: [facility] Reported Date/Time: Performed By: #### % SBRAST, [id number] #### [facility] Default [address] [place] [address] ELM (T8) IGE <0.10 [facility] Administrative Executive Comment on above: Order Comment: [facility] Testing performed at: [facility], [facility], [address] , [address] [place] [address], [address] [place] [address], Dispensing And Measuring Optician: Velasquez Caldwell MD [facility] Collection Date/Time: [facility] Results Received Date/Time: [facility] Reported Date/Time: Performed By: #### % SBRAST, [id number] #### [facility] Default [address] [place] [address] HICKORY/PECAN TREE (T22) IGE <0.10 [facility] Administrative Executive Comment on above: Order Comment: [facility] Testing performed at: QPT, [facility], [address], [address] [place] [address], [address] [place] [address], Dispensing And Measuring Optician: Velasquez Caldwell MD [facility] Collection Date/Time: [facility] Results Received Date/Time: [facility] Reported Date/Time: Performed By: #### % SBRAST, [id number] #### [facility] Default [address] [place] [address] IMMUNOGLOBULIN E 83 kU/L Normal [facility] Administrative Executive Comment on above: Order Comment: [facility] Testing performed at: QPT, [facility], [address], [address] [place] [address], [address] [place] [address], Dispensing And Measuring Optician: Velasquez Caldwell MD [facility] Collection Date/Time: [facility] Results Received Date/Time: [facility] Reported Date/Time: Performed By: #### % SBRAST, [id number] #### [facility] Default [address] [place] [address] MAPLE (BOX ELDER) (T1) IGE <0.10 Normal [facility] Administrative Executive Comment on above: Order Comment: [facility] Testing performed at: QPT, [facility], [address] , [address] [place] [address], [phone], Dispensing And Measuring Optician: Velasquez Caldwell MD [facility] Collection Date/Time: [facility] Results Received Date/Time: [facility] Reported Date/Time: Performed By: #### % SBRAST, [id number] #### [facility] Default [address] [place] [address] MOUNTAIN CEDAR (T6) IGE <0.10 Normal [facility] Administrative Executive Comment on above: Order Comment: [facility] Testing performed at: QPT, [facility], [address], [address] [place] [address], [address] [place] [address], Dispensing And Measuring Optician: Velasquez Caldwell MD [facility] Collection Date/Time: [facility] Results Received Date/Time: [facility] Reported Date/Time: Performed By: #### % SBRAST, [id number] #### [facility] Default [address] [place] [address] MOUSE URINE PROTEINS (E72) IGE <0.[address] [facility] Specialist Comment on above: Order Comment: [facility] Testing performed at: [facility], [facility], [address], [address] [place] [address], [address] [place] [address], Dispensing And Measuring Optician: Velasquez Caldwell MD [facility] Collection Date/Time: [facility] Results Received Date/Time: [facility] Reported Date/Time: Performed By: #### % SBRAST, [id number] #### [facility] Default [address] [place] [address] OAK (T7) IGE <0.10 Normal [facility] Administrative Executive Comment on above: Order Comment: [facility] Testing performed at: [facility], [facility], [address], [address] [place] [address], [address] [place] [address], Dispensing And Measuring Optician: Velasquez Caldwell MD [facility] Collection Date/Time: [facility] Results Received Date/Time: [facility] Reported Date/Time: Performed By: #### % SBRAST, [id number] #### [facility] Default [address] [place] [address] PENICILLIUM NOTATUM (M1) IGE <0.[address] [facility] Specialist Comment on above: Order Comment: [facility] Testing performed at: [facility], [facility], [address], [address] [place] [address], [address] [place] [address], Dispensing And Measuring Optician: Velasquez Caldwell MD [facility] Collection Date/Time: [facility] Results Received Date/Time: [facility] Reported Date/Time: Performed By: #### % SBRAST, [id number] #### [facility] Default [address] [place] [address] ROUGH PIGWEED (W14) IGE <0.10 Normal [facility] Administrative Executive Comment on above: Order Comment: [facility] Testing performed at: [employer], [facility], [address], [address] [place] [address], [address] [place] [address], Dispensing And Measuring Optician: Velasquez Caldwell MD [facility] Collection Date/Time: [facility] Results Received Date/Time: [facility] Reported Date/Time: Performed By: #### % SBRAST, [id number] #### [facility] Default [address] [place] [address] ZIMBABWEAN THISTLE (W11) IGE <0.10 [facility] Specialist Comment on above: Order Comment: [facility] Testing performed at: [employer], [facility], [address] [place] [address], [address] [place] [address], [address] [place] [address], Dispensing And Measuring Optician: Velasquez Caldwell MD [facility] Collection Date/Time: [facility] Results Received Date/Time: [facility] Reported Date/Time: Performed By: #### % SBRAST, [id number] #### [facility] Default [address] [place] [address] SHEEP SORREL (W18) IGE 0.13 kU/L [facility] Specialist Comment on above: Order Comment: [facility] Testing performed at: [employer] [facility], [address], [address] [place] [address], [address] [place] [address], Dispensing And Measuring Optician: Velasquez Caldwell MD [facility] Collection Date/Time: [facility] Results Received Date/Time: [facility] Reported Date/Time: Performed By: #### % SBRAST, [id number] #### [facility] Default [address] [place] [address] SYCAMORE (T11) IGE 0.10 kU/L [facility] Specialist Comment on above: Order Comment: [facility] Testing performed at: [employer] [facility], [address] , [address] [place] [address], [address] [place] [address], Dispensing And Measuring Optician: Velasquez Caldwell MD [facility] Collection Date/Time: [facility] Results Received Date/Time: [facility] Reported Date/Time: Performed By: #### % SBRAST, [id number] #### [facility] Default [address] [place] [address] ANÍBAL GRASS (G6) IGE <0.10 Normal [facility] Administrative Executive Comment on above: Order Comment: [facility] Testing performed at: [facility], [facility], [address] , [address] [place] [address], [address] [place] [address], Dispensing And Measuring Optician: Velasquez Caldwell MD [facility] Collection Date/Time: [facility] Results Received Date/Time: [facility] Reported Date/Time: Performed By: #### % SBRAST, [id number] #### [facility] Default [address] [place] [address] WALNUT TREE (T10) IGE <0.10 Normal [facility] Administrative Executive Comment on above: Order Comment: [facility] Testing performed at: [facility], [facility], [address] , [address] [place] [address], [address] [place] [address], Dispensing And Measuring Optician: Velasquez Caldwell MD [facility] Collection Date/Time: [facility] Results Received Date/Time: [facility] Reported Date/Time: Performed By: #### % SBRAST, [id number] #### [facility] Default [address] [place] [address] WHITE NORBERTO (T15) IGE <0.10 Normal [facility] Administrative Executive Comment on above: Order Comment: [facility] Testing performed at: [facility], [facility], [address] , [address] [place] [address], [address] [place] [address], Dispensing And Measuring Optician: Velasquez Caldwell MD [facility] Collection Date/Time: [facility] Results Received Date/Time: [facility] Reported Date/Time: Performed By: #### % SBRAST, [id number] #### [facility] Default [address] [place] [address] WHITE MULBERRY (T70) IGE <0.10 Normal [facility] Administrative Executive Comment on above: Order Comment: [facility] Testing performed at: [facility], [facility], [address], [address] [facility], [place], [address], Dispensing And Measuring Optician: Velasquez Caldwell MD [facility] Collection Date/Time: [facility] Results Received Date/Time: [facility] Reported Date/Time: Performed By: #### % SBRAST, [id number] #### [facility] Default [address] [place] [address] LUMBAR SPINE 2 OR 3 [facility]INE 2 [facility] [address] [place] [phone] ========Patient Name: FREDI MCKEE : 1965Sex: FAge: Race: BlackMRN: [id number]. Location: 84Patient Status: Date: 03/07/2017 8:30:00 AMCompleted Date: 03/07/2017 08:35 AMRequesting Provider: HOMERO ACEVEDO Attending Provider: Report Copy To: Signs & Symptoms: M51.36 Other intervertebral disc degeneration, lumbar region [id number]: AthenaComments: , , Views (X-RAY, LUMBAR SPINE): AP, Lateral, L5-S1 Spot , Weight Bearing?: Y , , , Ordering Provider - HOMERO ACEVEDO MD , Exam: LUMBAR SPINE 2 OR 3 VWSAccession #: [id number] LUMBAR SPINE 2 OR 3 VWS 03/07/2017 [...] partially visualized and appears unchanged. Approved by:Chad Ty on 03/07/2017 9:25 AM EST. I, Alex Galarza, have reviewed the images and report and concur with these findings. Electronically signed by:Alex Galarza. Transcribed by: [email or web address], User Resident: CHAD HASANElectronically Signed by: ALEX GALARZA @ 03/07/2017 02:18 PMI personally read this/these film(s) with this resident Normal [facility] Comment on above: Order Comment: , , V iews (X-RAY, LUMBAR SPINE): AP, Lateral, L5-S1 Spot , Weight Bearing?: Y , , , Ordering Provider - HOMEOR ACEVEDO MD , LUMBAR SPINE 2 OR 3 [facility]BAR SPINE [facility] A[facility] [place] [phone] ========Patient Name: FREDI MCKEE : 1965Sex: FAge: Race: BlackMRN: [id number]. Location: Patient Status: Date: 10/25/2016 8:45:00 AMCompleted Date: 10/25/2016 08:50 AMRequesting Provider: HOMERO ACEVEDO Attending Provider: Report Copy To: Signs & Symptoms: M51.36 Other intervertebral disc degeneration, lumbar region [id number]: AthenaComments: , , Views (X-RAY, LUMBAR SPINE): AP, Lateral, L5-S1 Spot , Weight Bearing?: Y , , , Ordering Provider - HOMERO SALMON MD , Exam: LUMBAR SPINE 2 OR 3 VWSAccession #: [id number] LUMBAR SPINE 2 OR 3 VWS 10/25/2016 [...] disease. Electronically signed by:Moriah Krueger. Transcribed by: [email or web address], User Resident: Electronically Signed by: MORIAH KRUEGER @ 10/25/2016 03:33 PM Normal [facility] Comment on above: Order Comment: , , V iews (X-RAY, LUMBAR SPINE): AP, Lateral, L5-S1 Spot , Weight Bearing?: Y , , , Ordering Provider - HOMERO SALMON MD , BNPon 10-22-2016 BNP 8 pg/mL Normal 0 - 99 [facility] Comment on above: Result Comment: . <1 00 pg/mL - Heart failure adjyttei288-469 pg/mL - Intermediate probability of acute heart. failure exacerbation. Correlate with clinical. context and patient history. >=300 pg/mL - Heart Failure likely. Correlate with clinical. context and patient history.BNP testing is performed using different testingmethodology at [facility] than at [facility]. Direct result comparisons shouldonly be made within the same method. Performed By: #### B NP2 ####[facility] [facility], [phone] CBC AND DIFFERENTIALon 10-22 % AUTOMATED IMMATURE GRAN 0.2 % Normal 0.0 - 0.9 [facility] Comment on above: Result Comment: Perc ent differential counts (%) should be interpreted in the context of the absolute cell counts (cells/L). Performed By: #### C BCDF ####[facility] [facility], [phone] % NEUTROPHIL 55.7 % Normal 40.0 - 80.0 [facility] Comment on above: Performed By: #### C BCDF ####[facility] [facility], [phone] Basophils/100 WBC Auto (Bld) 0.05 x10E9/L Normal 0.00 - 0.10 [facility] Comment on above: Performed By: #### C BCDF ####[facility] [facility], [phone] Basophils/100 WBC Auto (Bld) 0.5 % Normal 0.0 - 2.0 [facility] Comment on above: Performed By: #### C BCDF ####[facility] [facility], [phone] Eosinophils 0.23 10*3/uL Normal 0.00 - 0.70 [facility] Comment on above: Performed By: #### C BCDF ####[facility] [facility], [phone] Eosinophils/100 leukocytes 2.1 % Normal 0.0 - 6.0 [facility] Comment on above: Performed By: #### C BCDF ####[facility],[facility], [phone] Erythrocyte distribution width Auto Ratio (RBC) 17.0 % High 11.5 - 14.5 [facility] Comment on above: Performed By: #### C BCDF ####[facility] [facility], [phone] Erythrocytes (RBC) 5.38 x10E12/L High 4.00 - 5.20 [facility] Comment on above: Performed By: #### C BCDF ####[facility] [facility], [phone] Hematocrit (HCT) 39.8 % Normal 36.0 - 46.0 [facility] Comment on above: Performed By: #### C BCDF ####[facility] [facility], [phone] Hemoglobin mass conc (Bld) 12.7 g/dL Normal 12.0 - 16.0 [facility] Comment on above: Performed By: #### C BCDF ####[facility] [facility], [phone] Lymphocytes 3.64 10*3/uL Normal 1.20 - 4.80 [facility] Comment on above: Performed By: #### C BCDF ####[facility] [facility], [phone] Lymphocytes/100 leukocytes 33.4 % Normal 13.0 - 44.0 [facility] Comment on above: Performed By: #### C BCDF ####[facility] [facility], [phone] MCHC mass conc (RBC) 31.9 g/dL Low 32.0 - 36.0 [facility] Comment on above: Performed By: #### C BCDF ####[facility], [phone] MCV 74 fL Low 80 - 100 [facility] Comment on above: Performed By: #### C BCDF ####[facility] [facility], [phone] Monocytes 0.88 10*3/uL Normal 0.10 - 1.00 [facility] Comment on above: Performed By: #### C BCDF ####[facility] [facility], [phone] Monocytes/100 leukocytes 8.1 % Normal 2.0 - 10.0 [facility] Comment on above: Performed By: #### C BCDF ####[facility] [facility], [phone] Neutrophils 6.07 10*3/uL Normal 1.20 - 7.70 [facility] Comment on above: Performed By: #### C BCDF ####[facility] [facility], [phone] Platelets 453 10*3/uL High 150 - 450 [facility] [facility] Comment on above: Performed By: #### C BCDF ####[facility] [facility] [place],[facility], [phone] WBC (Leukocytes) 10.9 10*3/uL Normal 4.4 - 11.3 [facility] Comment on above: Performed By: #### C BCDF ####[facility] [facility] [place],[facility], [phone] COMPREHENSIVE PANELon 2016 Alanine aminotransferase (ALT) 27 U/L Normal 7 - 45 [facility] Comment on above: Result Comment: Janeth ents treated with Sulfasalazine may generate falsely decreased results for ALT. Performed By: #### C MP ####[facility] [facility] [place],[facility], [phone] Albumin 4.0 g/dL Normal 3.4 - 5.0 [facility] Comment on above: Performed By: #### C MP ####[facility] [facility] [place],[facility], [phone] Alkaline phosphatase (ALP) 74 U/L Normal 33 - 110 [facility] Comment on above: Performed By: #### C MP ####[facility] [facility] [place],[facility], [phone] Anion gap 17 mmol/L Normal 10 - 20 [facility] Comment on above: Performed By: #### C MP ####[facility] [facility] [place],[facility], [phone] Aspartate aminotransferase (AST) 30 U/L Normal 9 - 39 [facility] Comment on above: Result Comment: MILD HEMOLYSIS DETECTED. The result may be falsely elevated due tohemolysis or other interferents. Clinical correlation is recommended.Repeat testing may be considered. Performed By: #### C MP ####[facility] [facility] [place],[facility], [phone] Bicarbonate (HCO3) 22 mmol/L Normal 21 - 32 [facility] Comment on above: Performed By: #### C MP ####[facility] [facility] [place],[facility], [phone] Bilirubin (total) 0.5 mg/dL Normal 0.0 - 1.2 [facility] Comment on above: Performed By: #### C MP ####[facility] [facility] [place],[facility], [phone] Calcium 9.7 mg/dL Normal 8.6 - 10.6 [facility] Comment on above: Performed By: #### C MP ####[facility] [facility] [place],[facility], [phone] Chloride 103 mmol/L Normal 98 - 107 [facility] Comment on above: Performed By: #### C MP ####[facility] [facility] [place],[facility], [phone] Creatinine 1.13 mg/dL High 0.50 - 1.05 [facility] Comment on above: Performed By: #### C MP ####[facility] [facility] [place],[facility], [phone] eGFR (non-black) 51 mL/min/{1.73_m2} Invalid Interpretation Code >60 [facility] Comment on above: Performed By: #### C MP ####[facility] [facility] [place],[facility], [phone] eGFR (non-black) 62 mL/min/{1.73_m2} Normal >60 [facility] Comment on above: Result Comment: CALC ULATIONS OF ESTIMATED GFR ARE PERFORMED USING THE MDRD STUDY EQUATION FOR THE IDMS-TRACEABLE CREATININE METHODS. CLIN CHEM 2007;53:766-72 Performed By: #### C MP ####[facility] [facility] [place],[facility], [phone] Glucose mass conc 126 mg/dL High 74 - 99 [facility] Comment on above: Performed By: #### C MP ####[facility] [facility] [place],[facility], [phone] Potassium molar conc 4.2 mmol/L Normal 3.5 - 5.3 [facility] Comment on above: Result Comment: MILD HEMOLYSIS DETECTED. The result may be falsely elevated due tohemolysis or other interferents. Clinical correlation is recommended.Repeat testing may be considered. Performed By: #### C MP ####[facility] [facility] [place],[facility], [phone] Protein 8.1 g/dL Normal 6.4 - 8.2 [facility] Comment on above: Performed By: #### C MP ####[facility] [facility] [place],[facility], [phone] Sodium 138 mmol/L Normal 136 - 145 [facility] Comment on above: Performed By: #### C MP ####[facility],[facility], [phone] Urea nitrogen 13 mg/dL Normal 6 - 23 [facility] Comment on above: Performed By: #### C MP ####[facility] [facility] [place],[facility], [phone] TROPONIN Ion 10-22-2016 Troponin I.cardiac mass conc ng/mL Normal 0.00 - 0.03 [facility] Comment on above: Result Comment: LESS THAN 0.04 NG/ML: NEGATIVEREPEAT TESTING IN FOUR TO SIX HOURSIF CLINICALLY INDICATED.0.04 - 0.5 NG/ML: CONSISTENT WITH POSSIBLECARDIAC DAMAGE AND POSSIBLE INCREASEDCLINICAL RISK.SERIAL MEASUREMENTS MAY HELP ASSESS EXTENT OFMYOCARDIAL DAMAGE.>0.5 NG/ML: CONSISTENT WITH CARDIAC DAMAGE,INCREASED CLINICAL RISK AND MYOCARDIALINFARCTION. SERIAL MEASUREMENTS MAY HELPASSESS EXTENT OF MYOCARDIAL DAMAGE..Note: Troponin I testing is performed using differenttesting methodology at [facility] than at [facility]. Direct result comparisons should onlybe made within the same method. Performed By: #### T ROP2 ####[facility] [facility] [place],[facility], [phone] CHEST 2 VIEW PA AND LATon CHEST [...] cardiopulmonary process.Electronically signed by: EWA NEELY MD [facility] Large Joint Arthro/Inj: bila teral knee joints [facility] Vital Signs Date Time Vital Sign Value Performing Clinician Brandon blue 11-20-2022 09:32-0400 Body height 162.6 cm Jamie Yañez PA-C Work Phone: [facility] 11-20-2022 09:32-0400 Body weight 149.05 kg Jamie Yañez PA-C Work Phone: [facility] Encounters Encounter Date Encounter Type Care Provider Facility Start: 03-09-2023 ambulatory Christine Bowman Facility: [facility] Start: 11-20-2022 End: 11-20-2022 ambulatory KALA CONTE Facility:[facility] Start: 11-20-2022 End: 11-20-2022 Patient encounter procedure [...] (Primary Dx) Start: 09-04-2022 End: 09-05-2022 ambulatory [facility] Facility: Start: 07-31-2022 End: 08-01-2022 ambulatory Christine Bowman Facility:[facility] Start: 07-31-2022 End: 07-31-2022 Patient encounter procedure Christine Bowman [facility] Start: 07-06-2022 End: 07-07-2022 ambulatory [facility] Facility:[facility] Start: 06-08-2022 End: 06-09-[address] CADENCE LUKE . Facility:[facility] Start: 05-18-[address] CADENCE LUKE . Faci lity:[facility] Start: 04-19-2022 End: 04-19-2022 ambulatory [facility] Facility:[facility] Start: 02-15-2022 End: 02-16-[address] CADENCE LUKE . Facility:[facility] Start: 01-19-2022 End: 01-20-2022 [facility] Facility:[facility] Start: 10-18-2021 End: 10-19-[address] CADENCE LUKE . Facility:[facility] Start: 10-07-2021 End: 10-08-2021 ambulatory Aníbal Marroquin II Facility:[facility] Start: 10-06-2021 End: 10-07-2021 [facility] Facility: Start: 03-07-2017 End: 03-08-2017 Ambulatory HOMERO ACEVEDO Facility:[facility] Start: 10-25-2016 End: 10-26-2016 Ambulatory HOMERO ACEVEDO Facility:[facility] Start: 10-21-2016 End: 10-22-2016 Ambulatory Светлана Albright Facility:[facility] Start: 10-21-2016 Emergency dept visit high severity&threat funcj Светлана Albright [facility] Procedures Date Procedure Procedure Detail Performing Clinician Start: 11-20-2022 Arthrocentesis aspir &/inj major jt/bursa w/o us Jamie Yañez PA-C Work Phone: Start: 11-20-2022 Radiologic exam knee complete 4/more views Jamie Yañez PA-C Work Phone: Start: 11-02-2022 Mammography Jamie Connors PA-C Work Phone: Start: 02-24-2021 Cystoscopy Christine Modesto mis Abdominal hysterectomy Hilar y Timmis Colonoscopy Christine Timmis Decompression of med fraaz nerve Christine Timmis Destructive procedure Christine Bowman History of hernia repair Rcici Bowman History of operative procedure on lumbar spinal structure Christine Bowman Plan of Treatment Date Care Activity Detail Author Start: 11-03-2023 Mammography MAMMOGRAM [facility] Start: 12-22-2022 Influenza vaccination INFLUENZA (#1) [facility] Start: 10-12-2022 ambulatory Ambulatory Facility:[facility] 1 Start: 04-23-2022 DEPRESSION ASSESSMENT DEPRESSION ASS ESSMENT [facility] Start: 05-27-2021 COVID-19 VACCINE (4 - Moderna series) COVID-19 VACCINE (4 - Moderna series) [facility] Start: 07-15-2017 SHINGRIX VACCINE (1 of 2) SHINGRIX VACCINE (1 of 2) [facility] Start: 07-15-2012 COLOGUARD (FIT-DNA) COLOGUARD (FIT-D NA) [facility] Start: 07-15-2012 Colonoscopy COLONOSCOPY [facility] Start: 07-15-2012 COLORECTAL CANCER SCREENING COLORECTAL CANCER SCREENING [facility] Start: 07-15-[address] COLONOGRAPHY [facility] Start: 07-15-2012 DIABETES SCREEN DIABETES SCREEN [facility] Start: 07-15-2012 FECAL OCCULT BLOOD FECAL OCCULT BLOO D [facility] Start: 07-15-2012 LIPID SCREEN LIPID SCREEN [facility] Start: 07-15-2012 SIGMOIDOSCOPY SIGMOIDOSCOPY [facility] Start: 2007 Mammography MAMMOGRAM [facility] Start: 07-15-1997 HPV TESTING HPV TESTING [facility] Start: 07-15-1988 PAP TESTING PAP TESTING [facility] Start: 07-15-1986 Urine microalbumin profile DTAP,TDAP,TD (1 - Tdap) [facility] Start: 07-15-1985 HEPATITIS C SCREENING HEPATITIS C SC REENING [facility] Start: 07-15-1985 HIV SCREENING HIV SCREENING [facility] Start: 01-16-1968 COVID-19 VACCINE (#1) COVID-19 VACCI NE (#1) [facility] Start: 1967 HEPATITIS B (1 of 3 - 3-dose series) HEPATITIS B (1 of 3 - 3-dose series) [facility] End: 12-03-2023 XR KNEE GENERAL 4V AP BOTH/PA BOTH/LAT/MERC BILATERAL XR KNEE GENERAL 4V AP BOTH/PA BOTH/LAT/MERC BILATERAL Radiology Routine Chronic pain of both knees 1 Occurrences starting 11/03/2022 until 12/03/2023 [facility] Work Phone: Comment on above: 1 Occurrences starti ng 11/03/2022 until 12/03/2023 [facility] Immunizations Immunization Date Immunization Notes Care Provider Fa cility 08-21-2020 SARS-CoV-2 (COVID-19 ) mRNA-1273 vaccine Christine Timmis [facility] 07-22-2020 SARS-CoV-2 (COVID-19 ) mRNA-1273 vaccine Christine Timmis [facility] 02-20-2018 Influenza, injectabl e, Madin Mai Canine Kidney, preservative free, quadrivalent Jamie McFrederick PA-C Work Phone: [facility] 03-12-2017 influenza, seasonal, injectable, preservative free Jamie McFrederick PA-C Work Phone: [facility] 02-15-2016 influenza, seasonal, injectable, preservative free Jamie McFrederick PA-C Work Phone: [facility] 02-24-2015 influenza, seasonal, injectable, preservative free Jamie McFrederick PA-C Work Phone: [facility] 01-09-2012 hepatitis B vaccine, pediatric or pediatric/adolescent dosage Jamie McFrederick PA-C Work Phone: [facility] 01-09-2012 hepatitis B vaccine, unspecified formulation Jamie McFrederick PA-C Work Phone: [facility] Payers Date Payer Category Payer Self-pay [id number] [facility] [address] [facility] [address] [facility] DUAL COMPLETE HMO POS SNP [id number] 2020-Present [phone] [address] [place] [address] Medicare [id number] 2020 Unknown [id number] 2018 Medicaid [id number] 2017 Unknown [id number] 1967 Unknown [id number] 1967 Unknown [id number] [id number] 1967 Unknown [id number] [id number] 1967 Unknown [id number] [id number] 1967 Unknown [id number] [id number] 1967 Unknown [id number] [id number] 1967 Unknown [id number] [id number] 1967 Unknown [id number] [id number] 1967 Unknown [id number] [id number] 1967 Unknown [id number] [id number] 1967 Unknown [id number] [id number] 1959 Unknown [id number] Unknown [id number] Social History Date Type Detail Facility Start: 08-15-2017 End: 01-25-2021 Tobacco smoking status Ex-smoker (finding) [facility] Start: 11-22-2018 End: 11-06-2022 Sex Assigned At Female [facility] History of tobacco use Current smoker [facility] History of tobacco use Cigarette Smoker [facility] Start: 08-15-2017 Tobacco use and exposure Smokeless tobacco non-user [facility] Start: 08-14-2018 Alcohol intake Current drinke r of alcohol (finding) [facility] Start: 11-22-2018 End: 11-06-2022 History of Social function [facility] PHQ-2 Score 0 [facility] Start: 08-15-2017 Tobacco Comment quit 2013 [facility] Start: 07-30-2013 Alcohol Comment social [facility] Start: 1965 Sex Assigned At Not on file [facility] Start: 1965 Sex Assigned At Female J[facility] Clinical Notes 10-06-2021 to 11-20-2022 Jamie Yañez PA-C - 11/20/2022 4:47 PM EDTMJamie Connors PA-C - 11/20/2022 9:34 AM Stanley Dwyer RT(R) - 11/20/2022 9:00 AM EDT Note Date & Type Note Facility 11-20-2022 Note HNO ID: [id number] Author: Jamie Yañez PA-C Service: ? Author Type: Physician Woodenware Assembler Type: Progress Notes Filed: 11/20/2022 4:50 PM [...] knee joints Informed Consent Consent Obtained: Verbal [place] Protocol A moment to CARE was completed. [...] the patient voiced understanding of these instructions. [facility] 11-20-2022 History of Present illness Narrative [...] knee joints Informed Consent Consent Obtained: Verbal [place] Protocol A moment to CARE was completed. [...] exercise. 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 We discuss our Get Ready program. 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 Author Type: Physician Woodenware Assembler Type: Progress Notes Filed: 11/20/2022 4:50 PM [...] exercise. 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 We discuss our Get Ready program. 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 [facility] 11-20-2022 Note HNO ID: [id number] Author: Stanley Martinez RT(R) Service: ? Author [...] RT Quita(R) November 20, 2022 8:40 AM [facility] 11-20-2022 History of Present illness Narrative [...] 2022 8:40 AM documented in this encounter [facility] 07-06-2022 Note CONSULTATION PROCEDURE DATE: 07/06/2022 HISTORY: [...] injection. Patient tolerated the procedure well. [facility] 06-08-2022 Note CONSULTATION CONSULTATION DATE: 06/08/2022 HISTORY: [...] drive herself. She prefers to go to [place], but it is highly recommended to her to go to the emergency department here at [facility], across the parking lot. We will follow up with her and reschedule her for an appointment. [facility] 02-15-2022 Note CONSULTATION PROCEDURE DATE: 02/15/2022 PREOPERATIVE [...] followed up in the clinic thereafter. [facility] 01-19-2022 Note CONSULTATION CONSULTATION DATE: 01/19/2022 HISTORY [...] will return in 2-3 weeks' time. [facility] 01-19-2022 Note CONSULTATION PROCEDURE DATE: 01/19/2022 PREOPERATIVE [...] be followed up in the clinic. [facility] 10-18-2021 Note CONSULTATION PROCEDURE DATE: 10/18/2021 PREOPERATIVE [...] range of motion exercises subsequent to this. [facility] Signed and Approved by: DR CADENCE LUKE . 11/01/2021 07:55:00 [facility] 10-06-2021 Note CONSULTATION CONSULTATION DATE: 10/06/2021 HISTORY [...] plan of care and all questions answered. [facility] Signed and Approved by: ORVILLE PETERS . 10/19/2021 16:23:00 [facility] Evaluation + Plan note No data available for this section [facility] Evaluation note Diagnosis Chronic pain of both knees- Primary [facility] Diagnosis Bilateral primary osteoarthritis of knee- Primary Class 3 severe obesity due to excess calories without serious comorbidity with body mass index (BMI) of 50.0 to 59.9 in adult (HCC) documented in this encounter [facility] note* Diagnosis Chronic pain of both knees documented in this encounter [facility] noteNo assessment information availableThe [facility] Work Phone: Hospital Discharge instructions No data available for this section [facility] No data available for this section [facility] (narrative)* Diagnostic Procedure Only (Routine) - Pending Review Specialty Diagnoses / Procedures Referred By Timmy singh Referred To Contact XR IMAGING Diagnoses Chronic pain of both knees Procedures XR KNEE GENERAL 4V AP BOTH/PA BOTH/LAT/MERC BILATERAL RADIOLOGIC EXAM KNEE COMPLETE 4/MORE VIEWS Jamie Yañez PA-C [address] [place] [id number] Xr Imaging Referral ID Status Reason Start Date Expiration Date Visits Requested Visits Authorized [id number] Pending Review Auto-Generat ed Referral 11/03/2022 12/03/2023 1 1 [facility] for referral (narrative)* Diagnostic Procedure Only (Routine) - Closed Specialty Diagnoses / Procedures Referred By Timmy singh Referred To Contact XR IMAGING Diagnoses Chronic pain of both knees Procedures XR KNEE GENERAL 4V AP BOTH/PA BOTH/LAT/MERC BILATERAL RADIOLOGIC EXAM KNEE COMPLETE 4/MORE VIEWS Jamie Yañez PA-C [address] [address] Xr Imaging Referral ID Status Reason Start Date Expiration Date V isits Requested Visits Authorized [id number] Closed Auto-Generate d Referral 11/03/2022 12/03/2023 1 1 [facility] Summary Purpose Family History No Family History [...] HIGH COMPLEX 45 MINS Jamie Yañez PA-C [address] [address] [facility] [address] [place] [address] Referral ID Status Reason Start Date Expiration Date Visits Requested Visits Authorized [id number] Pending Review Auto-Generat ed Referral 11/20/2022 11/20/2023 1 1 Specialty Diagnoses / Procedures Referred By Timmy singh Referred To Contact Diagnoses Class 3 severe obesity due to excess calories without serious comorbidity with body mass index (BMI) of 50.0 to 59.9 in adult (HCC) Bilateral primary osteoarthritis of knee Procedures ENDOCRINE MEDICAL WEIGHT MANAGEMENT OFFICE/OUTPATIENT [facility] 60-74 MINUTES Jamie Yañez PA-C [address] [address] Referral ID Status Reason Start Date Expiration Date Visits Requested Visits Authorized [id number] Pending Review PCP Requested Referral 11/20/2022 11/20/2023 [...] section and content) DATE CREATED AUTHOR 10/16/2017 [facility] DATE CREATED AUTHOR AUTHOR'S ORGANIZ ATION 10/17/2017 [facility] DATE CREATED AUTHOR AUTHOR'S ORGANIZ ATION 04/14/2021 [facility] dical Specialist DATE CREATED AUTHOR AUTHOR'S ORGANIZ ATION 09/06/2022 [facility] DATE CREATED AUTHOR AUTHOR'S ORGANIZ ATION 11/21/2022 [facility] DATE CREATED AUTHOR AUTHOR'S ORGANIZ ATION 12/23/2022 [facility] DATE CREATED AUTHOR AUTHOR'S ORGANIZ ATION 04/01/2023 Otoniel Wilkerson [facility] Patient Care team informatio n (unrecognized section and content) Chorus Dancer Relationship Specialty Start Date End Date Kala Conte PCP - General Family Medicine 06/18/17 Judson White [address] [place] [address] Referring 08/28/22 Chorus Dancer Relationship Specialty Start Date End Date Kala Conte PCP - General Family Medicine 06/18/17 Judson White [address] [place] [address] Referring 08/28/22 Chorus Dancer Relationship Specialty Start Date End Date Kala Conte PCP - General Family Medicine 06/18/17 Judson White [address] [place] [address] Referring 08/28/22 Source Comments (unrecognize d section and content) In the event this informatio n is protected by the Federal Confidentiality of Alcohol and Drug Abuse Patient Records regulations: The Federal rules restrict any use of the information to criminally investigate or prosecute any alcohol or drug abuse patient.[facility] the event this information is protected by the Federal Confidentiality of Alcohol and Drug Abuse Patient Records regulations: The Federal rules restrict any use of the information to criminally investigate or prosecute any alcohol or drug abuse patient.[facility] the event this information is protected by the Federal Confidentiality of Alcohol and Drug Abuse Patient Records regulations: The Federal rules restrict any use of the information to criminally investigate or prosecute any alcohol or drug abuse patient.[facility] Reason for Visit (unrecogniz ed section and content) Reason Comments Knee Pain Reason Comments Radio Gen A21 Specialty Diagnoses / Procedures Referred By Contac t Referred To Contact XR IMAGING Diagnoses Chronic pain of both knees Procedures XR KNEE GENERAL 4V AP BOTH/PA BOTH/LAT/MERC BILATERAL RADIOLOGIC EXAM KNEE COMPLETE 4/MORE VIEWS Jamie Yañez PA-C [address] [place] [id number] Xr Imaging Referral ID Status Reason Start Date Expiration Date V isits Requested Visits Authorized [id number] Closed Auto-Generate d Referral 11/03/2022 12/03/2023 1 [...] BE BASED ON THE PRIMARY CLINICAL RECORDS. [facility] provides no warranty or guarantee of the accuracy or completeness of information in this document.
[2023-05-01 07:27] VITALS: BP 162/84; PULSE 95; RESP 16; TEMP 36.3; O2SAT 98
[2023-05-01] MEDS: 0.9 % SODIUM CHLORIDE 500 ML IV (07:34)
[2023-05-01] MEDS: LIDOCAINE HCL 2% 400 MG/20 ML MDV 10 ML INJ (08:43)
[2023-05-01] MEDS: BUPIVACAINE HCL 0.25% PF 25 MG/10 ML VIAL 4 ML INJ (08:43)
[2023-05-01] MEDS: METHYLPREDNISOLONE ACETATE 40 MG/ML VIAL INJ (08:44)
[2023-05-01 08:50] VITALS: BP 153/73; PULSE 88; RESP 16; TEMP 36.2; O2SAT 97
[2023-05-01 08:55] VITALS: BP 131/73; PULSE 88; RESP 18; O2SAT 99
--- NOTE | 2023-05-01 09:20 | W.PM.PROCNOT ---
Date of procedure: 05/01/23 Pre-op diagnosis: Left Knee Osteoarthritis Post-op diagnosis: same as pre-op Procedure: Left knee genicular nerve Radiofrequency ablation PreOp diagnosis: pain secondary to include knee osteoarthritis Postop diagnosis same Under fluoroscopic guidance Rhizotomy was created using radio frequency ablation at 80?C for 90 seconds 1 to 2 lesions created at each site. Post lesioning injection of 2 mL each of 0.25% Marcaine and 2% lidocaine with Depo-Medrol 40mg. 0.5 to 1 mL injected at each site Anesthesia local 2% lidocaine for local anesthetic Timeout process compliant After informed consent obtained.Patient brought to the procedure room placed in the supine position skin overlying the area was prepped and draped in a sterile fashion using betadine. 25 gauge needle was used to create a skin wheal over each of the targeted areas utilizing 2% lidocaine. A rhizotomy needle with a 10 mm active tip was inserted over each of the anesthetized areas and directed towards each of the genicular nerves accomplished under fluoroscopic guidance. after encountering the same we had positive sensory stimulation, negative motor stimulation was noted. lesions were then created. Post lesioning, steroid solution was injected needles removed. Patient was transferred to recovery room in stable condition to be discharged home after meeting criteria. Anesthesia: MAC Surgeon: Jessica Hernandez Condition: stable
== END 2023-05-01 09:10 | disposition home or self-care (01) ==
PROVIDERS: Visit Provider Anesthesiology Pain Medicine
PROC: (CPT 1991; principal; 2023-05-01 08:10)
DX: M17.12 Unilateral primary osteoarthritis, left knee (principal)
CPT/HCPCS: 64624; J0665; J1030; J2250; J2704

== ENCOUNTER 2023-05-21 13:35 | Outpatient (OUT) | payer MEDICARE, MEDICAID, SELFPAY ==
--- OUTSIDE RECORDS SUMMARY | 2023-05-21 13:40 | XMS_ITS | CCD ---
Author Name Unknown Address [address] [place] [address] Organization [facility] Care Team Providers Care Manager Golf Name Role Phone ELGAFY, HOMERO K Unavailable [...] Admitting Unavailable PETERS ., [place] Consulting Unavailable [facility] Unava ilable [facility] Consulting Unava ilable LUKE ., DR CADENCE Hsu Attending Unavailable [facility] Unava ilable PETERS ., [place] Consulting Unavailable LUKE ., DR CADENCE Hsu Admitting Unavailable [facility] Unava ilable EDITH, DR SOOTMAYOR Attending Unavailable EDITH, DR SOTOMAYOR Admitting Unavailable PAY ., DR GRIMM Consulting Unavailable EDITH, DR SOTOMAYOR Consulting Unavailable TROTTI, GIROLAMO Consulting Unavailable [facility] Unava ilable MARKER ., DR MENDOZA Attending Unavailable MARKER ., DR MENDOZA Admitting Unavailable MARKER ., DR MENDOZA Consulting Unavailable RISHABH MORENO Consulting Unavailable [facility] Unava ilable PETERS ., [place] Consulting Unavailable LUKE ., DR CADENCE Hsu Admitting Unavailable LUKE ., DR CADENCE Hsu Attending Unavailable [facility] Unava ilable PETERS ., [place] Consulting Unavailable LUKE ., DR CADENCE Hsu Attending Unavailable LUKE ., DR CADENCE Hsu Admitting Unavailable LUKE ., DR CADENCE Hsu Consulting Unavailable [facility] Unava ilable LUKE ., DR CADENCE Hsu Attending Unavailable LUKE ., DR CADENCE Hsu Admitting Unavailable [facility] Unava ilable LORRAINE .[place] Consulting Unavailable LUKE ., DR CADENCE Hsu Attending Unavailable LUKE ., DR CADENCE Hsu Admitting Unavailable LUKE ., DR CADENCE Hsu Consulting Unavailable LUKE ., DR CADENCE Hsu Attending Unavailable [facility] Unava ilable LUKE ., DR CADENCE Hsu Admitting Unavailable [facility] Unava ilable LAKSHMIPATHY ., NARENDRANATH Admitting Emmanuelle vailable LAKSHMIPATHY ., NARENDRANATH Attending Emmanuelle vailable Kala Conte Primary Care Provider Judson White Unavailable Unavailable CONTE, KALA BLANCHARD Primary Care Unavailable JAMIE YAÑEZ Attending Unavailabl e CONTE, KALA SANTO Primary Care Unavailable JAMIE YAÑEZ Referring Unavailabl e Adamowicz II, Aníbal J Admitting Unavaila ble Adamowicz II, Aníbal J Attending Unavaila ble Conte, Kala Primary Care Unavailable Conte, Kala Referring Unavailable Timmis, Christine H Referring Unavailable Timmis, Christine H Attending Unavailable Timmis, Christine H Admitting Unavailable TIMMIS, CHRISTINE H Attending Unavailable Allergies Allergy Classification Reported Allergen(s) Allergy Type Date of Onset Reaction(s) Facility (1 source) penicillin Drug Allergy 6 AOF [facility] (4 sources) prochlorperazine; Translations: [Compazine] Drug Allergy 4 AOF [facility] Repository (10 sources) Penicillins; Translations: [penicillins] Drug allergy 4 Eruption of skin (disorder), Hives [facility] (4 sources) Prochlorperazine; Translations: [prochlorperazine] Drug Allergy 2 Unknown (qualifier value), Eruption of skin (disorder) [facility] (4 sources) Prochlorperazine; Translations: [PROCHLORPERAZINE EDISYLATE] Drug Allergy 4 Mental Status Change [facility] (1 source) Prochlorperazine Drug Allergy 2 [...] release oral tablet (2 sources) Aminoketone Start: take 1 tablet by mouth twice daily [...] thereafter, # 42.5 gm, Refills(s) 11, Pharmacy: [facility], 163, cm, 04/14/21 10:37:00 EST, Height/Length Dosing, 148, kg, 04/14/21 10:37:00... Start Date: 04/14/21 Status: Ordered 120 actuat fluticasone propionate 0.22 mg/actuat metered dose inhaler (1 source) Corticosteroid Start: 01-25-2021 take 1 puff(s) by inhalation twice daily Flovent HFA 220 Aerosol = 1 puff(s), Inhalation, BID, Refills(s) 0 Start Date: 01/25/21 Status: Ordered fluticasone 0.05 mg/inh Nasal [place] (1 source) Start: 04-14-2021 fluticasone 0.05 mg/inh Nasal [place] Refill(s) 0 Start Date: 04/14/21 Status: Ordered [...] Comment on above: Take 1 tablet by [facility]. citalopram 10 mg oral tablet (3 sources) [...] 01-25-2021 Chronic Other aftercare (1 source) Other nursing home (current) drug therapy; Translations: [OTH SNF CURRENT DRUG THERAPY] Onset: 09-06-2022 Episodic Other [...] Range Facility Physician Referralon 023 Physician Referral [phone] 10 [id number] Normal [facility] CNOVon 11-20-2022 CNOV Office Visit (ORTHMN ) FREDI MCKEE ([id number]) 1965 F UPA Date Time Provider Department [...] exercise. 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 We discuss our Get Ready program. 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 Normal [facility] XR KNEE 4V AP/PA/LAT/MERCH B SDon 11-20-2022 XR KNEE 4V AP/PA/LAT/MERCH ARON * [...] 4V AP/PA/LAT/MERCH ARON COMPARISON: None RESULT: Marked [id number] medial compartment narrowing bilaterally with genu varus deformities. Tricompartmental osteophytes bilaterally. No fractures. No joint effusions. 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 No other significant abnormality. - IMPRESSION: MARKED DEGENERATIVE CHANGES IN THE MEDIAL COMPARTMENTS BILATERALLY [employer]: PSCB Transcribe Date/Time: Nov 20 2022 8:42A Dictated by : ERASMO VALENTE MD This examination was interpreted and the report reviewed and electronically signed by: ERASMO VALENTE MD on Nov 20 2022 8:43AM EST [id number] Normal [facility] XR KNEE GENERAL 4V AP BOTH/P A BOTH/LAT/MERC BILATERALon 11-20-2022 [facility] BNPon 09-05-2022 Natriuretic peptide B (Bld) [Mass/Vol] 29.0 pg/mL Normal <=900.0 [facility] Comment on above: Performed By: #### H STROPN, BNP, CMP ####[facility] [address] [place], [place] [address]HrDr. Merlene Carr CBC AUTO DIFFon 09-05-2022 BASO # 0.1 103/ul Normal 0.0-0.1 [facility] Comment on above: Performed By: #### C BC #### [facility] [address] [address] [address] Merlene Carr Basophils/100 WBC (Bld) 0.5 % Normal 0.2-2.0 [facility] Comment on above: Performed By: #### C BC #### [facility] [address] [address] [address] Merlene Carr EO # 0.6 103/ul Normal 0.0-0.7 [facility] Comment on above: Performed By: #### C BC #### [facility] [address] [address] [address] Merlene Carr Eosinophils/100 WBC (Bld) 4.9 % Normal 0.9-7.0 [facility] Comment on above: Performed By: #### C BC #### [facility] [address] [address] [address] Merlene Carr Erythrocyte distribution width (RBC) [Ratio] 14.0 % Normal 11.0-15.0 [facility] Comment on above: Performed By: #### C BC #### [facility] [address] [address] [address] Merlene Carr Hematocrit (Bld) [Volume fraction] 41.4 % Normal 36.0-48.0 [facility] Comment on above: Performed By: #### C BC #### [facility] [address] [address] [address] Merlene Carr Hemoglobin (Bld) [Mass/Vol] 13.0 g/dL Normal 12.0-16.0 [facility] Comment on above: Performed By: #### C BC #### [facility] [address] [place] [address] Dr. Merlene Carr IG # 0.05 10e3/ul Critically high 0.00-0.03 [facility] Comment on above: Performed By: #### C BC #### [facility] [address] [place] [address] Dr. Merlene Carr IG % 0.4 % Normal 0.0-0.5 [facility] Comment on above: Performed By: #### C BC #### [facility] [address] [place] [address] Dr. Merlene Carr LYMPH # 3.2 103/ul Normal 1.2-3.8 [facility] Comment on above: Performed By: #### C BC #### [facility] [address] [place] [address] Dr. Merlene Carr Lymphocytes/100 WBC (Bld) 27.2 % Normal 20.5-60.0 [facility] Comment on above: Performed By: #### C BC #### [facility] [address] [place] [address] Dr. Merlene Carr MANUAL DIFF REQ NO Normal [facility] Comment on above: Performed By: #### C BC #### [facility] [address] [place] [address] Dr. Merlene Carr MCH (RBC) [Entitic mass] 26.7 pg Normal 26.7-34.0 [facility] Comment on above: Performed By: #### C BC #### [facility] [address] [place] [address] Dr. Merlene Carr MCHC (RBC) [Mass/Vol] 31.4 g/dL Normal 29.9-35.2 [facility] Comment on above: Performed By: #### C BC #### [facility] [address] [place] [address] Dr. Merlene Carr MCV (RBC) [Entitic vol] 85.0 fL Normal 81.0-99.0 [facility] Comment on above: Performed By: #### C BC #### [facility] [address] [address] [address] Merlene Carr MONO # 1.0 103/ul Critically high 0.3-0.8 [facility] Comment on above: Performed By: #### C BC #### [facility] [address] [address] [address] Merlene Carr Monocytes/100 WBC (Bld) 8.8 % Normal 1.7-12.0 [facility] Comment on above: Performed By: #### C BC #### [facility] [address] [address] [address] Merlene Carr NEUT # 6.9 103/ul Critically high 1.4-6.5 [facility] Comment on above: Performed By: #### C BC #### [facility] [address] [place] [address] Dr. Merlene Carr Neutrophils/100 WBC (Bld) 58.2 % Normal 43.0-75.0 [facility] Comment on above: Performed By: #### C BC #### [facility] [address] [address] [address] Merlene Carr Platelet mean volume (Bld) [Entitic vol] 10.2 fL Normal 9.5-13.5 [facility] Comment on above: Performed By: #### C BC #### [facility] [address] [address] [address] Merlene Carr PLT 392 103/ul Normal 150-450 [facility] Comment on above: Performed By: #### C BC #### [facility] [address] [address] [address] Merlene Carr RBC 4.87 106/ul Normal 4.20-5.40 [facility] Comment on above: Performed By: #### C BC #### [facility] [address] [address] [address] Merlene Carr WBC 11.8 103/ul Critically high 4.0-11.0 [facility] Comment on above: Performed By: #### C BC #### [facility] [address] [address] [address] Merlene Carr CULTURE SPUTUMon 09-05-2022 CULTURE SPUTUM Culture Observations : NORMAL RESPIRATORY MARGARITO. FINAL TO FOLLOW. Normal [facility] Comment on above: Performed By: #### S PUTCX #### [facility] [address] [address] [address] Merlene Carr PROF 14(COMP METB)on 023 Albumin [Mass/Vol] 3.6 g/dL Normal 3.4-5.0 [facility] Comment on above: Performed By: #### H STROPN, BNP, CMP ####[facility] [address] [address]DrMatthew Carr Albumin/Globulin [Mass ratio] 0.9 {ratio} Normal [facility] Comment on above: Performed By: #### H STROPN, BNP, CMP ####[facility] [address] [place] [address]Dr. Merlene Carr ALP [Catalytic activity/Vol] 74 U/L Normal 46-116 [facility] Comment on above: Performed By: #### H STROPN, BNP, CMP ####[facility] [address] [place] [address]Dr. Merlene Carr ALT [Catalytic activity/Vol] 35 U/L Normal 14-59 [facility] Comment on above: Performed By: #### H STROPN, BNP, CMP ####[facility] [address] [place] [address]Dr. Merlene Carr Anion gap [Moles/Vol] 16.8 mmol/L Normal [facility] Comment on above: Performed By: #### H STROPN, BNP, CMP ####[facility] [address] [place] [address]Dr. Merlene Carr AST [Catalytic activity/Vol] 24 U/L Normal 15-37 [facility] Comment on above: Performed By: #### H STROPN, BNP, CMP ####[facility] [address] [place] [address]Dr. Merlene Carr Bilirubin [Mass/Vol] 0.2 mg/dL Normal 0.2-1.0 [facility] Comment on above: Performed By: #### H STROPN, BNP, CMP ####[facility] [address] [place] [address]Dr. Merlene Carr Calcium [Mass/Vol] 9.7 mg/dL Normal 8.5-10.1 [facility] Comment on above: Performed By: #### H STROPN, BNP, CMP ####[facility] [address] [place] [address]Dr. Merlene Carr Chloride [Moles/Vol] 106 mmol/L Normal 98-107 [facility] Comment on above: Performed By: #### H STROPN, BNP, CMP ####[facility] [address] [place], [place] [address]Dr. Merlene Carr CO2 [Moles/Vol] 25.3 mmol/L Normal 21.0-32.0 [facility] Comment on above: Performed By: #### H STROPN, BNP, CMP ####[facility] [address] [place], [place] [address]Dr. Merlene Carr Creatinine [Mass/Vol] 1.14 mg/dL Critically high 0.55-1.02 [facility] Comment on above: Performed By: #### H STROPN, BNP, CMP ####[facility] [address] [place] [address]Dr. Merlene Carr EGFR-AF OMANI 60 mL/min/1.73m2 Normal >=60 [facility] Comment on above: Performed By: #### H STROPN, BNP, CMP ####[facility] [address] [place], [place] [address]Dr. Merlene Carr EGFR-NON AF OMANI 49 mL/min/1.73m2 Critically low >=60 [facility] Comment on above: Performed By: #### H STROPN, BNP, CMP ####[facility] [address] [place] [address]Dr. Merlene Carr Globulin (S) [Mass/Vol] 4.2 g/dL Normal [facility] Comment on above: Performed By: #### H STROPN, BNP, CMP ####[facility] [address] [place] [address]Dr. Merlene Carr Glucose [Mass/Vol] 95 mg/dL Normal 74-106 [facility] Comment on above: Performed By: #### H STROPN, BNP, CMP ####[facility] [address] [place] [address]Dr. Merlene Carr Potassium [Moles/Vol] 4.1 mmol/L Normal 3.5-5.1 [facility] Comment on above: Performed By: #### H STROPN, BNP, CMP ####[facility] [address] [place] [address]Dr. Merlene Carr Protein [Mass/Vol] 7.8 g/dL Normal 6.4-8.2 [facility] Comment on above: Performed By: #### H STROPN, BNP, CMP ####[facility] [address] [place] [address]Dr. Merlene Carr Sodium [Moles/Vol] 144 mmol/L Normal 136-145 [facility] Comment on above: Performed By: #### H STROPN, BNP, CMP ####[facility] [address] [place] [address]Dr. Merlene Carr Urea nitrogen [Mass/Vol] 10.0 mg/dL Normal 7.0-18.0 [facility] Comment on above: Performed By: #### H STROPN, BNP, CMP ####[facility] [address] [place] [address]Dr. Merlene Carr Urea nitrogen/Creatinine [Mass ratio] 8.8 mg/mg Normal [facility] Comment on above: Performed By: #### H STROPN, BNP, CMP ####[facility] [address] [address]DrMatthew Carr SPUTUM GRAM STAINon 09-06-19 23 COMMENTS Normal [facility] Comment on above: Performed By: #### S PUTGS #### [facility] [address] [address] [address] Merlene Carr DIPHTHEROIDS Normal [facility] Comment on above: Performed By: #### S PUTGS #### [facility] [address] [address] [address] Merlene Carr EPITHELIALS >25 Normal [facility] Comment on above: Performed By: #### S PUTGS #### [facility] [address] [address] [address] Merlene Carr FUNGAL ELEMENTS Normal [facility] Comment on above: Performed By: #### S PUTGS #### [facility] [address] [address] [address] Merlene Carr GRAM NEG BACILLI Normal [facility] Comment on above: Performed By: #### S PUTGS #### [facility] [address] [address] [address] Merlene Carr GRAM NEG DIPPLOCOCCI Normal [facility] Comment on above: Performed By: #### S PUTGS #### [facility] [address] [address] [address] Merlene Carr GRAM POS BACILLI Normal [facility] Comment on above: Performed By: #### S PUTGS #### [facility] [address] [address] [address] Merlene Carr GRAM POSITIVE COCCI FEW Normal [facility] Comment on above: Performed By: #### S PUTGS #### [facility] [address] [address] [address] Merlene Carr WBC (Bld) [#/Vol] 10*3/uL Normal [facility] Comment on above: Performed By: #### S PUTGS #### [facility] [address] [address] [address] Merlene Carr TROPONIN, HIGH SENSITIVITYon 09-05-2022 HSTROP 9.6 pg/mL Normal 4.0-51.3 [facility] Comment on above: Result Comment: CUT- OFF POINTS HAVE BEEN ESTABLISHED BASED ON THE FOURTH UNIVERSAL DEFINITIONS OF MYOCARDIAL INFARCTION. THE UPPER REFERENCE LIMIT (URL) OF TROPONIN, DEFINED THE 99TH PERCENTILE OF cTnI DISTRIBUTION IN A REFERENCE POPULATION, HAS BEEN CONFIRMED THE DECISION THRESHOLD FOR MD DIAGNOSIS. Performed By: #### H STROPN, BNP, CMP ####[facility] [address] [place], [place] [address]RoMatthew Carr XR CHEST 2 Von 09-05-2022 XR [...] RISHABH MORENO Date: 2022-09-04 22:55 Normal [facility] Coding Summary.on 08-05-2022 Coding Summary. CD:[id number] Ww +PGhlYWQ+YX5IYAVfJ19va QZefH2oF9ZAQGcRYqmrTEE MZNxHWlUyaoZvFZ2xjNQzM XJu IC8+QT4zSXGtRatuxNDuo0 C3hLY3I24obi7cTUdrrAR3 BQQrUiEipwscc5twqSj7QE cuNmluOyBt GHMfaH11XLV8iR48Lg80cY FfgZNgj7iomPu5XaYoLSNa CIO2cQvsVKrit5LgWPHvJ9 5npQIiq9D6 LQSyjZevoAGzMfZknAL0cF 9hVThviwwhp2qkjeuwUqk9 cz47jQQro6J1kJY8D6Tdgo G9AVYtkBFy JkkhcWTKtI2lkajih4lnwg ddAuXzPBKwGMm1ASq6XSVw cAucZwJlKP63KSH8HTOoyk AlF3RySMZg kQtyNgY8d6Z2Yj4ZA2LQIp wlD6ZZDLWDHWvpnML+PC90 gg89K9CjFdyhCtk8BRXzXD O3xBY2zU9v YZDoKOqvy9T4jXC1Z7Wbcf Uwhh3fs6ytTIHrVMjlU26k gTKaw3T7NHUssQF4KFBzbS iwFvNpdA58 Oyc+JRQdwWfdo1RsQvssd8 zkk8xshNd2MnumGDFilxGo nFoxDFD9l5KdLv2nKLTfzZ X6kXJ6oP2q CtKcZcK1CWlkS568KpTcrP DeHysnA10nF2EafVA+PHRy Oyr4KFFhyVrzXY2kF8NsOZ RpbmctbGVm jJwoMF0vFRFyebjwGVNcrL 4hQSIwI8p9GsIySnJ4TLqm C8EzDXCjgehqAm29bO1lXs ZnKdR8QWnf P7NynwW8BAEzjLRiSBcoKK C2D48uw3P7NTSuCSNoSXB6 uRG3mY4suRyehbhrxQNzhY sgdmVydGlj JMzoGTqpA193BQQumAxeDu NvZGluZyBEYXRlOiAgMDQv MTUvMjAyMzwvdGQ+PHRkIH D1cCftTPIk aTRsCOraDz8qaLzaaLueNG 1xULSyaqzuLRBoqD6sAYPe iLWsgAavDB7hVCLyhsylq2 45EqUfBSJ7 IYEcjNNyV4CifC0dKlUgMX IyKVIhR2VjpZUoEAkjL134 XWvyKaT4ZWNulzCdM1MqBO FsaWduOiB0 a0I7Ta1Ym1TksepqO5MogQ DvLfFlFaxpIBt0J7PiRbwk dHI+PW67ULBdGN47VGp5NL R9wLdaTQia MSVrD1WgdR9cExKfMSDrTN RkOyc+PHRhYmxlIHdpZHRo ZYczOJAlTfKntCwbWM2sKh 9yZGVyLWNv xFgmcJOwTuMhg3juAGCaRB qtDX4fxMafL7HhaCX9CPTd c6u9Yt41F51sS2IrfYM+PG IfbDM4oIR1 aG0bCkExIeY6TVbuZ421Lz TwgZQaYxqgt9ikw9jscOh2 WqM1XMLeopTlpKkoUMX9d3 QzDp56Z29u IHdpZHRoPSIxNSUiIHZhbG hrhd5rlJ9vMr4+PGNvbCB3 aAY5zQ1pErWyUzE3OExdD9 49InRvcCIv Aghhq2gmg2cchXv9HiZaHS SuwfGywEblFPW8a6ViMq23 X9StlOpzo4ZaQye8ng65dN Wgz0Q9mFC9 K5WvIVAcndqibVZncFqcDR 7fEDOkbigqMEPmfW0hAHXs D4w6VhKuPgK2SGyvH5Zwfj S6SDPqtHPf HDQseXZMzL9aesubb4btui ugIyXtPYWdGLv3NHf4AJLy lQczBeEcZHC0OlP3VTU1zY MyoO0zlWls azvpmS6bHwj+LJX6vQVokF FQOE8dChkeyLE+PHRkIHN0 iFjxZVhmRWIaoX7tOJFcF4 m2EpMpZfI0 EFwvZ4KmohH4XDRypGAlCU TvaYFJnT9zkbkcd9ksptvg FiOuNLEjRDg6DFq5OCSfkQ duOiBsZWZ0 NrQ2UGO5xHPsaZ5roMxkja srhF4iXmf+QmlydGggRGF0 DVa6E2UoFrv5SDCixIktEJ 0ncGFkZGlu Ys5lqGttdZdtVP1iFDUhkf xhi061GfDvc0gcBPMmaJYj UBmjVHP8R50ag6A0DZDfLC IbFIQ8bYE6 gM1wePwmfcqawCCgcWocbd NlvRrdHExpVDlrF317YXBy rYdjRwZqQUo9Q7ItHad9RN GqmVnkOU8i pMTpAVkzAr4wkWykuVcmEC 2lYUOzpsznm529ZvSsf6vi MFVbpTMmRBolRJZ3S30lx0 S1WKScCSNy MNS4sAN1aR0tzDzkmpierU VmdDsgdmVydGljYWwtYWxp W853UEXwrTaaWjYvuKe7J7 OuFah2FCMw iLsdWF2vzNXyMQqyNk3ofP supAjlZV4pQZDrgmbvq157 RwHjh9svRPPzxLKcOQfkTZ D4E50nl8O4 BABhAQQzFOL2zWC7xY9leJ lnbjogbGVmdDsgdmVydGlj EYpxVQldK507JUXvaZjuJe BhdGllbnQg KVkxTKa9H5QxWaclrDV+PC 51JNZoRT15vWVjyKEfp2xs bIq6TdOpDVHoVIW6cWsaWZ syc3ShTXJe F91azTKfp0R1DXRwbYfzyG UqGoHwrHH5tS9rOOjzkrhj u3flswpdSpxxx2bzgk97aW 76J36gFErf ZHRoPSIzMCUiIHZhbGlnbj 5iiX7kBl5+ZKRsgGV7uZE8 bJ7lTKWmDrR5ESkpK829Bd RvcCIvPjxj v3zlb7itsRy3BfR6ULSlyi PgeZrbVXM9p1KmAh52B15c IHdpZHRoPSIyMCUiIHZhbG bziu5cuI9e Ii8+NEWfcMV9eXT0dP7xBv InPxG6EMbfO061AiKuaFYx LepdJ10qQ7FstBC+PHRyPj b3KVPeqOqt MX5dpHNmBCapCy3pGTW8Np YaOgUnERhvD3NrJDXispxg rdlcnMV3HDCdIWSbbI85Bl 9udDogMTBw sWJJtS8kifbxa0tzytdbIa TtOPXeOBd6AWz9BMDmfYgp WwKnMVC7UzH9LSC4qMPbqA 1hbGlnbjog dE3tA7ChOLPbeszqVe97eI 6iJlZjVzT9HZirZbm+Sk9I TlNPTiwgWkVTVEEgQjwvdG Q+PHRkIHN0 vOubWJpkAWMrbV2hUCAfP2 x5NrFdQvK8YQtiJ1XoKMFf pbrtJh38hX8pSaDlEiJ7UX qkY6OfkxP7 AEZpvWHwHDogIRL1B10xh3 E2BJHoCMTyYAC2kRJ8aH5d bGlnbjogbGVmdDsgdmVydG ljYWwtYWxp A311MGTxvQczNoZsCcA7Xc V4Kym4W4IlObn1AIYgbJfn WT8gcIDdDPgoEw8ggJlfsO zzGG8dHLTy volcBVEtiV4hERSqbKDsrD htYJ6sXLLrmuswg443HrDj ANY1EBPtbJJiH6OgnB9wFr AjMDAwMDAw R9BtaAHsAHijN029UJvjVc K0MHGwhnGtN7PvUHPlkZiz KeB3i7I8Yo05NQEKAEQgkt wvdGQ+PHRk EZR2vMfpPQfkWTZzhE1eBO OuZ1s6IaBeEfL7WOywI6Iz YLPwoppqCj46wR6rQmGtCi K0CExiI7Zg tpD1SRCcdHBrTSvoCTB8Z4 1mr1A2PMAqXEVfBOR3dPQ2 aC1rlWmdavyqcNKnnCmdsx VydGljYWwt VWjdC573GLMgwVjqYfCueD FsZTwvdGQ+WRHcFIP2lVob UDzoPSUniN6kLRDnF8o1So BoVdP8RHsu S8KsZLLoxcxdFh92qT9lVl OyVhZ1DExxS2ArgmJ6WJIz gFDrSIomXVI4T13od6A4DU MwMDAwMDA7 mZI3kA0ovPhzmduelHFjmH iqqyQfvYygGDwzPRuuX300 WXBlwMvtZu16iFMfwZggep T0J8KdOwej dHI+VQ07TITrBN36kNMczB Nxd7hkrKk5JaZkRHNvJYA6 hFvvWEklx3VtMLVwM40xnH Bov5W2FDQf vMvgyIRaNqYgtQL3uD7sTX jeukzal7uvznngCyecx9oj du54jT80C63kEEezJXFrRL IzMCUiIHZh bRyfbh9raU4fNs6+PGNvbC Z0yOG3eY9cOdNqKhM7FAma S471QbSisYDlEltbx4crb8 kadAa8ZvWw EURvpjUtySuqMWT6q8QtDv 93J88dQQrzIIYePREyZMKy XWAxsJnyqz2gkD6fFr7+PC 6mo0ktfu77 vH12gVG+JAJpTRQ1oEaiMQ qoFEIseX0cVXreGvL0CARv HwRnjW64qGNgAIzsRb4aaF xxpJgqEJ1j FZZagntti006YaCdh1ngOZ TszXXvEHemTRC4J22no3V7 QQHjYHVcTCI4qDH1sE6fyA lnbjogbGVm dDsgdmVydGljYWwtYWxpZ2 23ZWKntAntHuSyhBYoD6lo scOLSM9rKqmytOJ+PHRkIH U7pGpsBEgw MURimV6qOWUaY3o7JrUmHx E7LJbcY7AacbN4YXFzbKEu ZEDlpCCWnJ8atzntq3pzsm ogIzAwMDAw MAj1PYj9KTXiwKhkUpYvLQ U4EnJ5ZEN2cJIafJ1ltFoe cvljaA3bLgi+RklOOjwvdG Q+PHRkIHN0 dFgsQEjwVBPbgI2xTSTwP1 z8KhIyJyW2HLxiY6MmwtU4 QSHofYHjVPKncVJLoU8oja guw7yzvzmh OsBsHZGrHNt8YYc0PUAupS qiDeHqDML3SbK5DWJ1dHZv nN6gtBjzxnpdbG8vHoo+TV JOOjwvdGQ+ FEAyWAA1oDjtGFlhBEXfaJ 8cXEPeH5g1QrXlUjN7IRrl C1XrtbN9JSLepYYtJHTpyV JDpW1wivwz o3qfbcimEhZtKKSjFVd7CT j3MMHdqMgcGrRcOSV3FnF9 WWN3hQEtbK2seCnocticwK 9wOyc+UGF5 BNW2FD41AU41S3ZdLykapL FibGU+PHRhYmxlIHdpZHRo ETqyIBLhJsZnkPvqXH6hLd 9yZGVyLWNv bGxhcHNl (more content not included)... Normal [facility] CT Maxillofacial w/o Contras ton 07-31-2022 CT [...] low as reasonably achievable. Ordering Provider: Christine Collins FINAL REPORT Dictated: 07/31/2022 7:06 pm Nomi Zaragoza MD Signed (Electronic Signature): 07/31/2022 7:06 pm Signed by: Nomi Zaragoza MD Transcribed by: ABNER Technologist: RYDER Normal [facility] Consent for Treatmenton 07-22 Consent for Treatment [id number] 0CD:127 Normal [facility] Physician Orderon 07-25-2022 Physician Order [id number]#1.0 0CD:127 Normal [facility] Physician Orderon 06-26-2022 Physician Order [id number]#1.0 0CD:127 Normal [facility] XR CHEST 2 Von 04-19-2022 XR CHEST [...] Jorden STALEY Date: 2022-04-19 19:45 Normal [facility] Q - ALLERGEN INTERPon 2020 INTERPRETATION SEE NOTE Normal [facility] R&D Engineer Comment on above: Order Comment: [facility] performed at: QPT, [employer] [facility], [address], [address], [place], [address], [employer] Professor: Velasquez Caldwell MD [facility] Collection Date/Time: [facility] [...] analytical performance characteristics have been determined by [employer]. It has not been cleared or approved by the U.S. Food and Drug Administration. This assay has been validated pursuant to the CLIA regulations and is used for clinical purposes. Performed By: #### % SBRAST, [id number] #### [facility] Default [address] [place] [address] Q - RESP ALLERGY PROFILE REG ION Von 04-11-2021 ALTERNARIA ALTERNATA (M6) IGE <0.10 Normal [facility] R&D Engineer Comment on above: Order Comment: [facility] Testing performed at: [facility], [address] [place] [address], [address] [place] [address], [phone], Ethnoarchaeology Professor: Velasquez Cladwell MD [facility] Collection Date/Time: [facility] Results Received Date/Time: [facility] Reported Date/Time: Performed By: #### % SBRAST, [id number] #### [facility] Default [address] [place] [address] ASPERGILLUS FUMIGATUS (M3) IGE <0.10 Normal [facility] R&D Engineer Comment on above: Order Comment: [facility] Testing performed at: [facility], [address] [facility], [address] [place] [address], [address] [place] [address], Ethnoarchaeology Professor: Velasquez Caldwell MD [facility] Collection Date/Time: [facility] Results Received Date/Time: [facility] Reported Date/Time: Performed By: #### % SBRAST, [id number] #### [facility] Default [address] [place] [address] BERMUDA GRASS (G2) IGE <0.10 Normal [facility] R&D Engineer Comment on above: Order Comment: [facility] Testing performed at: [employer], [facility], [address] [facility], [address] [place] [address], [address] [place] [address], Ethnoarchaeology Professor: Velasquez Caldwell MD [facility] Collection Date/Time: [facility] Results Received Date/Time: [facility] Reported Date/Time: Performed By: #### % SBRAST, [id number] #### [facility] Default [address] [place] [id number] BIRCH (T3) IGE <0.10 Normal [facility] Specialist Comment on above: Order Comment: [facility] Testing performed at: [employer], [facility], [address] [facility], [address] [place] [address], [address] [place] [address], Ethnoarchaeology Professor: Velasquez Caldwell MD [facility] Collection Date/Time: [facility] Results Received Date/Time: [facility] Reported Date/Time: Performed By: #### % SBRAST, [id number] #### [facility] Default [address] [place] [address] CAT DANDER (E1) IGE <0.10 Normal [facility] Specialist Comment on above: Order Comment: [facility] Testing performed at: [employer], [facility], [address] [facility], [address] [place] [address], [address] [place] [address], Ethnoarchaeology Professor: Velasquez Caldwell MD [facility] Collection Date/Time: [facility] Results Received Date/Time: [facility] Reported Date/Time: Performed By: #### % SBRAST, [id number] #### [facility] Default [address] [place] [address] CLADOSPORIUM HERBARUM (M2) IGE <0.10 Normal [facility] Specialist Comment on above: Order Comment: [facility] Testing performed at: [facility], [facility], [address] [place] [address], [address] [place] [address], [address] [place] [address], Ethnoarchaeology Professor: Velasquez Caldwell MD [facility] Collection Date/Time: [facility] Results Received Date/Time: [facility] Reported Date/Time: Performed By: #### % SBRAST, [id number] #### [facility] Default [address] [place] [address] CLASS 0/[address] [facility] Comment on above: Order Comment: [facility] Testing performed at: [facility], [employer] [facility], [address] [place] [address], [address] [place] [address], [address] [place] [address], Ethnoarchaeology Professor: Velasquez Caldwell MD [facility] Collection Date/Time: [facility] Results Received Date/Time: [facility] Reported Date/Time: Performed By: #### % SBRAST, [id number] #### [facility] Default [address] [place] [address] [facility] Comment on above: Order Comment: [facility] Testing performed at: [facility], [employer] [facility], [address] [place] [address], [address] [place] [address], [address] [place] [address], Ethnoarchaeology Professor: Velasquez Caldwell MD [facility] Collection Date/Time: [facility] Results Received Date/Time: [facility] Reported Date/Time: Performed By: #### % SBRAST, [id number] #### [facility] Default [address] [place] [address] COCKROACH (I6) IGE <0.10 Normal [facility] Comment on above: Order Comment: [facility] Testing performed at: [employer], [facility], [address] [place] [address], [address] [place] [address], [address] [place] [address], Ethnoarchaeology Professor: Velasquez Caldwell MD [facility] Collection Date/Time: [facility] Results Received Date/Time: [facility] Reported Date/Time: Performed By: #### % SBRAST, [id number] #### [facility] Default [address] [place] [address] COMMON RAGWEED (SHORT) (W1) IGE <0.10 Normal [facility] R&D Engineer Comment on above: Order Comment: [facility] Testing performed at: [employer], [facility], [address] [place] [address], [address] [place] [address], [address] [place] [address], Ethnoarchaeology Professor: Velasquez Caldwell MD [facility] Collection Date/Time: [facility] Results Received Date/Time: [facility] Reported Date/Time: Performed By: #### % SBRAST, [id number] #### [facility] Default [address] [place] [address] COTTONWOOD (T14) IGE <0.10 Normal [facility] Specialist Comment on above: Order Comment: [facility] Testing performed at: [facility], [address] [place] [address], [address] [place] [address], [address] [place] [address], Ethnoarchaeology Professor: Velasquez Caldwell MD [facility] Collection Date/Time: [facility] Results Received Date/Time: [facility] Reported Date/Time: Performed By: #### % SBRAST, [id number] #### [facility] Default [address] [place] [address] DERMATOPHAGOIDES FARINAE (D2) IGE 0.11 kU/L High [facility] R&D Engineer Comment on above: Order Comment: [facility] Testing performed at: [employer], [facility], [address] [place] [address], [address] [place] [address], [address] [place] [address], Ethnoarchaeology Professor: Velasquez Caldwell MD [facility] Collection Date/Time: [facility] Results Received Date/Time: [facility] Reported Date/Time: Performed By: #### % SBRAST, [id number] #### [facility] Default [address] [place] [address] DERMATOPHAGOIDES PTERONYSSINUS (D1) IGE 0.14 kU/L High [facility] Specialist Comment on above: Order Comment: [facility] Testing performed at: [facility], [facility], [address] , [address] [place] [address], [address] [place] [address], Ethnoarchaeology Professor: Velasquez Caldwell MD [facility] Collection Date/Time: [facility] Results Received Date/Time: [facility] Reported Date/Time: Performed By: #### % SBRAST, [id number] #### [facility] Default [address] [place] [address] DOG DANDER (E5) IGE <0.10 Normal [facility] Comment on above: Order Comment: [facility] Testing performed at: [facility], [employer] [facility], [address] , [address] [place] [address], [address] [place] [address], Ethnoarchaeology Professor: Velasquez Caldwell MD [facility] Collection Date/Time: [facility] Results Received Date/Time: [facility] Reported Date/Time: Performed By: #### % SBRAST, [id number] #### [facility] Default [address] [place] [address] ELM (T8) IGE <0.10 [facility] Specialist Comment on above: Order Comment: [facility] Testing performed at: [facility], [facility], [address] , [address] [place] [address], [address] [place] [address], Ethnoarchaeology Professor: Velasquez Caldwell MD [facility] Collection Date/Time: [facility] Results Received Date/Time: [facility] Reported Date/Time: Performed By: #### % SBRAST, [id number] #### [facility] Default [address] [place] [address] HICKORY/PECAN TREE (T22) IGE <0.10 Normal [facility] R&D Engineer Comment on above: Order Comment: [facility] Testing performed at: [employer], [facility], [address] [place] [address], [address] [place] [address], [address] [place] [address], Ethnoarchaeology Professor: Velasquez Caldwell MD [facility] Collection Date/Time: [facility] Results Received Date/Time: [facility] Reported Date/Time: Performed By: #### % SBRAST, [id number] #### [facility] Default [address] [place] [address] IMMUNOGLOBULIN E 83 kU/L Normal [facility] R&D Engineer Comment on above: Order Comment: [facility] Testing performed at: [employer], [facility], [address] [place] [address], [address] [place] [address], [address] [place] [address], Ethnoarchaeology Professor: Velasquez Caldwell MD [facility] Collection Date/Time: [facility] Results Received Date/Time: [facility] Reported Date/Time: Performed By: #### % SBRAST, [id number] #### [facility] Default [address] [place] [address] MAPLE (BOX ELDER) (T1) IGE <0.10 Normal [facility] R&D Engineer Comment on above: Order Comment: [facility] Testing performed at: [employer], [facility], [address] [place] [address], [address] [place] [address], [address] [place] [address], Ethnoarchaeology Professor: Velasquez Caldwell MD [facility] Collection Date/Time: [facility] Results Received Date/Time: [facility] Reported Date/Time: Performed By: #### % SBRAST, [id number] #### [facility] Default [address] [place] [address] MOUNTAIN CEDAR (T6) IGE <0.10 Normal [facility] R&D Engineer Comment on above: Order Comment: [facility] Testing performed at: [employer], [facility], [address] [place] [address], [address] [place] [address], [address] [place] [address], Ethnoarchaeology Professor: Velasquez Caldwell MD [facility] Collection Date/Time: [facility] Results Received Date/Time: [facility] Reported Date/Time: Performed By: #### % SBRAST, [id number] #### [facility] Default [address] [place] [address] MOUSE URINE PROTEINS (E72) IGE <0.10 Normal [facility] Specialist Comment on above: Order Comment: Quest Testing performed at: [employer], [facility], [address] [facility], [address] [place] [address], [phone], Ethnoarchaeology Professor: Velasquez Caldwell MD [facility] Collection Date/Time: [facility] Results Received Date/Time: [facility] Reported Date/Time: Performed By: #### % SBRAST, [id number] #### [facility] Default [address] [place] [address] OAK (T7) IGE <0.10 Normal [facility] R&D Engineer Comment on above: Order Comment: [facility] Testing performed at: [employer], [facility], [address] [place] [address], [address] [place] [address], [address] [place] [address], Ethnoarchaeology Professor: Velasquez Caldwell MD [facility] Collection Date/Time: Quest Results Received Date/Time: [facility] Reported Date/Time: Performed By: #### % SBRAST, [id number] #### [facility] Default [address] [place] [id number] PENICILLIUM NOTATUM (M1) IGE <0.10 Normal [facility] Specialist Comment on above: Order Comment: Quest Testing performed at: [employer], [facility], [address] [place] [address], [address] [place] [address], [address] [place] [address], Ethnoarchaeology Professor: Velasquez Caldwell MD Quest Collection Date/Time: Quest Results Received Date/Time: [facility] Reported Date/Time: Performed By: #### % SBRAST, [id number] #### [facility] Default [address] [place] [address] ROUGH PIGWEED (W14) IGE <0.10 Normal [facility] Specialist Comment on above: Order Comment: Quest Testing performed at: [facility], [facility], [address] [facility], [address] [place] [address], [address] [place] [address], Ethnoarchaeology Professor: Velasquez Caldwell MD [facility] Collection Date/Time: Quest Results Received Date/Time: [facility] Reported Date/Time: Performed By: #### % SBRAST, [id number] #### [facility] Default [address] [place] [address] MAURITIAN THISTLE (W11) IGE <0.10 [facility] Specialist Comment on above: Order Comment: [facility] Testing performed at: [employer], [facility], [address] [place] [address], [address] [place] [address], [address] [place] [address], Ethnoarchaeology Professor: Velasquez Caldwell MD [facility] Collection Date/Time: [facility] Results Received Date/Time: [facility] Reported Date/Time: Performed By: #### % SBRAST, [id number] #### [facility] Default [address] [place] [address] SHEEP SORREL (W18) IGE 0.13 kU/L [facility] Comment on above: Order Comment: Quest Testing performed at: [employer], [facility], [address] [facility], [address] [place] [address], [address] [place] [address], Ethnoarchaeology Professor: Velasquez Caldwell MD [facility] Collection Date/Time: Quest Results Received Date/Time: [facility] Reported Date/Time: Performed By: #### % SBRAST, [id number] #### [facility] Default [address] [place] [address] SYCAMORE (T11) IGE 0.10 kU/L [facility] Comment on above: Order Comment: Quest Testing performed at: [employer], [facility], [address] , [address] [place] [address], [address] [place] [address], Ethnoarchaeology Professor: Velasquez Caldwell MD Quest Collection Date/Time: [facility] Results Received Date/Time: [facility] Reported Date/Time: Performed By: #### % SBRAST, [id number] #### [facility] Default [address] [place] [address] ANÍBAL GRASS (G6) IGE <0.10 Normal [facility] R&D Engineer Comment on above: Order Comment: Quest Testing performed at: [employer], [facility], [address] , [address] [place] [address], [address] [place] [address], Ethnoarchaeology Professor: Velasquez Caldwell MD Quest Collection Date/Time: Quest Results Received Date/Time: [facility] Reported Date/Time: Performed By: #### % SBRAST, [id number] #### [facility] Default [address] [place] [address] WALNUT TREE (T10) IGE <0.10 Normal [facility] R&D Engineer Comment on above: Order Comment: Quest Testing performed at: [employer], [facility], [address] , [address] [place] [address], [address] [place] [address], Ethnoarchaeology Professor: Velasquez Caldwell MD Quest Collection Date/Time: [facility] Results Received Date/Time: [facility] Reported Date/Time: Performed By: #### % SBRAST, [id number] #### [facility] Default [address] [place] [address] WHITE NORBERTO (T15) IGE <0.10 Normal [facility] R&D Engineer Comment on above: Order Comment: Quest Testing performed at: [employer], [facility], [address] , [address] [place] [address], [address] [place] [address], Ethnoarchaeology Professor: Velasquez Caldwell MD Quest Collection Date/Time: [facility] Results Received Date/Time: [facility] Reported Date/Time: Performed By: #### % SBRAST, [id number] #### [facility] Default [address] [place] [address] WHITE MULBERRY (T70) IGE <0.10 Normal [facility] R&D Engineer Comment on above: Order Comment: Quest Testing performed at: [facility], [facility], [address] [facility], [address] [place], [address], Ethnoarchaeology Professor: Velasquez Caldwell MD Quest Collection Date/Time: Quest Results Received Date/Time: [facility] Reported Date/Time: Performed By: #### % SBRAST, [id number] #### [facility] Default [address] [place] [address] LUMBAR SPINE 2 OR 3 [facility] L[facility]BAR SPINE 2 [facility] 3 [facility] Nha[address] [place] [id number] ========Patient Name: FREDI MCKEE : 1965Sex: FAge: Race: BlackMRN: [id number]. Location: 84Patient Status: Date: 03/07/2017 8:30:00 AMCompleted Date: 03/07/2017 08:35 AMRequesting Provider: HOMERO ACEVEDO Attending Provider: Report Copy To: Signs & Symptoms: M51.36 Other intervertebral disc degeneration, lumbar region I50Kadogpc: AthenaComments: , , Views (X-RAY, LUMBAR SPINE): AP, Lateral, L5-S1 Spot , Weight Bearing?: Y , , , Ordering Provider - HOMERO ACEVEDO MD , Exam: LUMBAR SPINE 2 OR 3 VWSAccession #: [id number] LUMBAR SPINE 2 OR 3 VWS 03/07/2017 [...] findings. Electronically signed by:Alex Galarza. Transcribed by: [email or web address], User Resident: CHAD MALONEANElectronically Signed by: ALEX GALARZA @ 03/07/2017 02:18 PMI personally read this/these film(s) with this resident Normal [facility] Comment on above: Order Comment: , , V iews (X-RAY, LUMBAR SPINE): AP, Lateral, L5-S1 Spot , Weight Bearing?: Y , , , Ordering Provider - HOMERO ACEVEDO MD , LUMBAR SPINE 2 OR 3 [facility]BAR SPINE 2 [facility] Jvfwjetsk[address] [place], [place] [id number] ========Patient Name: FREDI MCKEE : 1965Sex: FAge: Race: BlackMRN: [id number]. Location: Patient Status: Date: 10/25/2016 8:45:00 AMCompleted Date: 10/25/2016 08:50 AMRequesting Provider: HOMERO ACEVEDO Attending Provider: Report Copy To: Signs & Symptoms: M51.36 Other intervertebral disc degeneration, lumbar region X47Sacueyn: AthenaComments: , , Views (X-RAY, LUMBAR SPINE): AP, Lateral, L5-S1 Spot , Weight Bearing?: Y , , , Ordering Provider - HOMERO SALMON MD , Exam: LUMBAR SPINE 2 OR 3 VWSAccession #: [id number] LUMBAR SPINE 2 OR 3 VWS 10/25/2016 [...] disease. Electronically signed by:Moriah Krueger. Transcribed by: [email or web address], User Resident: Electronically Signed by: MORIAH KRUEGER @ 10/25/2016 03:33 PM Normal [facility] Comment on above: Order Comment: , , V iews (X-RAY, LUMBAR SPINE): AP, Lateral, L5-S1 Spot , Weight Bearing?: Y , , , Ordering Provider - HOMERO SALMON MD , BNPon 10-22-2016 BNP 8 pg/mL Normal 0 - 99 [facility] Comment on above: Result Comment: . <1 00 pg/mL - Heart failure defxurkn741-539 pg/mL - Intermediate probability of acute heart. failure exacerbation. Correlate with clinical. context and patient history. >=300 pg/mL - Heart Failure likely. Correlate with clinical. context and patient history.BNP testing is performed using different [facility]methodology [facility] than [facility]. Direct result comparisons shouldonly be made within the same method. Performed By: #### B NP2 ####[facility] [facility], [phone] CBC AND DIFFERENTIALon 10-22 % AUTOMATED IMMATURE GRAN 0.2 % Normal 0.0 - 0.9 [facility] Comment on above: Result Comment: Perc ent differential counts (%) should be interpreted in the context of the absolute cell counts (cells/L). Performed By: #### C BCDF ####[facility] [facility], [phone] % NEUTROPHIL 55.7 % Normal 40.0 - 80.0 [facility] Comment on above: Performed By: #### C BCDF ####[facility] [facility], [phone] Basophils/100 WBC Auto (Bld) 0.05 x10E9/L Normal 0.00 - 0.10 [facility] Comment on above: Performed By: #### C BCDF ####[facility] [facility], [phone] Basophils/100 WBC Auto (Bld) 0.5 % Normal 0.0 - 2.0 [facility] Comment on above: Performed By: #### C BCDF ####[facility] [facility], [phone] Eosinophils 0.23 10*3/uL Normal 0.00 - 0.70 [facility] Comment on above: Performed By: #### C BCDF ####[facility] [facility] [place], [phone] Eosinophils/100 leukocytes 2.1 % Normal 0.0 - 6.0 [facility] Comment on above: Performed By: #### C BCDF ####[facility],[facility], [phone] Erythrocyte distribution width Auto Ratio (RBC) 17.0 % High 11.5 - 14.5 [facility] Comment on above: Performed By: #### C BCDF ####[facility] [facility], [phone] Erythrocytes (RBC) 5.38 x10E12/L High 4.00 - 5.20 [facility] Comment on above: Performed By: #### C BCDF ####[facility] [facility], [phone] Hematocrit (HCT) 39.8 % Normal 36.0 - 46.0 [facility] Comment on above: Performed By: #### C BCDF ####[facility] [facility], [phone] Hemoglobin mass conc (Bld) 12.7 g/dL Normal 12.0 - 16.0 [facility] Comment on above: Performed By: #### C BCDF ####[facility] [facility], [phone] Lymphocytes 3.64 10*3/uL Normal 1.20 - 4.80 [facility] Comment on above: Performed By: #### C BCDF ####[facility] [facility], [phone] Lymphocytes/100 leukocytes 33.4 % Normal 13.0 - 44.0 [facility] Comment on above: Performed By: #### C BCDF ####[facility] [facility], [phone] MCHC mass conc (RBC) 31.9 g/dL Low 32.0 - 36.0 [facility] Comment on above: Performed By: #### C BCDF ####[facility] [facility], [phone] MCV 74 fL Low 80 - 100 [facility] Comment on above: Performed By: #### C BCDF ####[facility] [facility], [phone] Monocytes 0.88 10*3/uL Normal 0.10 - 1.00 [facility] Comment on above: Performed By: #### C BCDF ####[facility] [facility], [phone] Monocytes/100 leukocytes 8.1 % Normal 2.0 - 10.0 [facility] Comment on above: Performed By: #### C BCDF ####[facility] [facility], [phone] Neutrophils 6.07 10*3/uL Normal 1.20 - 7.70 [facility] Comment on above: Performed By: #### C BCDF ####[facility] [facility], [phone] Platelets 453 10*3/uL High 150 - 450 [facility] Comment on above: Performed By: #### C BCDF ####[facility] [facility], [phone] WBC (Leukocytes) 10.9 10*3/uL Normal 4.4 - 11.3 [facility] Comment on above: Performed By: #### C BCDF ####[facility] [facility], [phone] COMPREHENSIVE PANELon 2016 Alanine aminotransferase (ALT) 27 U/L Normal 7 - 45 [facility] Comment on above: Result Comment: Janeth ents treated with Sulfasalazine may generate falsely decreased results for ALT. Performed By: #### C MP ####[facility] [facility], [phone] Albumin 4.0 g/dL Normal 3.4 - 5.0 [facility] Comment on above: Performed By: #### C MP ####[facility] [facility], [phone] Alkaline phosphatase (ALP) 74 U/L Normal 33 - 110 [facility] Comment on above: Performed By: #### C MP ####[facility] [facility], [phone] Anion gap 17 mmol/L Normal 10 - 20 [facility] Comment on above: Performed By: #### C MP ####[facility] [facility], [phone] Aspartate aminotransferase (AST) 30 U/L Normal 9 - 39 [facility] Comment on above: Result Comment: MILD HEMOLYSIS DETECTED. The result may be falsely elevated due tohemolysis or other interferents. Clinical correlation is recommended.Repeat testing may be considered. Performed By: #### C MP ####[facility] [facility], [phone] Bicarbonate (HCO3) 22 mmol/L Normal 21 - 32 [facility] Comment on above: Performed By: #### C MP ####[facility] [facility], [phone] Bilirubin (total) 0.5 mg/dL Normal 0.0 - 1.2 [facility] Comment on above: Performed By: #### C MP ####[facility] [facility], [phone] Calcium 9.7 mg/dL Normal 8.6 - 10.6 [facility] Comment on above: Performed By: #### C MP ####[facility] [facility], [phone] Chloride 103 mmol/L Normal 98 - 107 [facility] Comment on above: Performed By: #### C MP ####[facility] [facility], [phone] Creatinine 1.13 mg/dL High 0.50 - 1.05 [facility] Comment on above: Performed By: #### C MP ####[facility] [facility], [phone] eGFR (non-black) 51 mL/min/{1.73_m2} Invalid Interpretation Code >60 [facility] Comment on above: Performed By: #### C MP ####[facility] [facility], [phone] eGFR (non-black) 62 mL/min/{1.73_m2} Normal >60 [facility] Comment on above: Result Comment: CALC ULATIONS OF ESTIMATED GFR ARE PERFORMED USING THE MDRD STUDY EQUATION FOR THE IDMS-TRACEABLE CREATININE METHODS. CLIN CHEM 2007;53:766-72 Performed By: #### C MP ####[facility] [facility], [phone] Glucose mass conc 126 mg/dL High 74 - 99 [facility] Comment on above: Performed By: #### C MP ####[facility] [facility], [phone] Potassium molar conc 4.2 mmol/L Normal 3.5 - 5.3 [facility] Comment on above: Result Comment: MILD HEMOLYSIS DETECTED. The result may be falsely elevated due tohemolysis or other interferents. Clinical correlation is recommended.Repeat testing may be considered. Performed By: #### C MP ####[facility] [facility], [phone] Protein 8.1 g/dL Normal 6.4 - 8.2 [facility] Comment on above: Performed By: #### C MP ####[facility] [facility], [phone] Sodium 138 mmol/L Normal 136 - 145 [facility] Comment on above: Performed By: #### C MP ####[facility] ,[facility], [phone] Urea nitrogen 13 mg/dL Normal 6 - 23 [facility] Comment on above: Performed By: #### C MP ####[facility] [facility], [phone] TROPONIN Ion 10-22-2016 Troponin I.cardiac mass conc ng/mL Normal 0.00 - 0.03 [facility] Comment on above: Result Comment: LESS THAN 0.04 NG/ML: NEGATIVEREPEAT TESTING IN FOUR TO SIX HOURSIF CLINICALLY INDICATED.0.04 - 0.5 NG/ML: CONSISTENT WITH POSSIBLECARDIAC DAMAGE AND POSSIBLE INCREASEDCLINICAL RISK.SERIAL MEASUREMENTS MAY HELP ASSESS EXTENT OFMYOCARDIAL DAMAGE.>0.5 NG/ML: CONSISTENT WITH CARDIAC DAMAGE,INCREASED CLINICAL RISK AND MYOCARDIALINFARCTION. SERIAL MEASUREMENTS MAY HELPASSESS EXTENT OF MYOCARDIAL DAMAGE..Note: Troponin I testing is performed using differenttesting methodology [facility] than at [facility]. Direct result comparisons should onlybe made within the same method. Performed By: #### T ROP2 ####[facility] [facility], [phone] CHEST 2 VIEW PA AND LATon CHEST [...] cardiopulmonary process.Electronically signed by: EWA NEELY MD [facility] Large Joint Arthro/Inj: bila teral knee joints [facility] Vital Signs Date Time Vital Sign Value Performing Clinician Brandon blue 11-20-2022 09:32-0400 Body height 162.6 cm Jamie Yañez PA-C Work Phone: [facility] 11-20-2022 09:32-0400 Body weight 149.05 kg Jamie Yañez PA-C Work Phone: [facility] Encounters Encounter Date Encounter Type Care Provider Facility Start: 05-16-2023 End: 05-16-2023 ambulatory CHRISTINE COLLINS Not Available Start: 03-09-2023 ambulatory Christine Collins Facility: [facility] Start: 11-20-2022 End: 11-20-2022 ambulatory KALA CONTE Facility:[facility] Start: 11-20-2022 End: 11-20-2022 Patient encounter procedure Jamie Yañez PA-C Work Phone: Orthopaedics Comment on above: Bilateral primary os teoarthritis of knee (Primary Dx); Class 3 severe obesity due to excess calories without serious comorbidity with body mass index (BMI) of 50.0 to 59.9 in adult ([facility] Start: 11-20-2022 End: 11-20-2022 Subsequent hospital visit by physician Xr Main [facility] Comment on above: Chronic pain of both knees [M25.561, M25.562, G89.29] Start: 11-03-2022 Orders Only Jamie pate PA-C Work Phone: Orthopaedics Comment on above: Chronic pain of both knees (Primary Dx) Start: 09-04-2022 End: 09-05-2022 ambulatory [facility] Facility: Start: 07-31-2022 End: 08-01-2022 ambulatory Christine Collins Facility:[facility] Start: 07-31-2022 End: 07-31-2022 Patient encounter procedure Christine Collins [facility] Start: 07-06-2022 End: 07-07-2022 ambulatory [facility] Facility:[facility] Start: 06-08-2022 End: 06-09-[address] CADENCE LUKE . Facility:[facility] Start: 05-18-[address] CADENCE LUKE . Faci lity:[facility] Start: 04-19-2022 End: 04-19-2022 ambulatory [facility] Facility:[facility] Start: 02-15-2022 End: 02-16-[address] CADENCE LUKE . Facility:[facility] Start: 01-19-2022 End: 01-20-2022 ambulatory [facility] Facility: Start: 10-18-2021 End: 10-19-[address] CADENCE LUKE . Facility: Start: 10-07-2021 End: 10-08-2021 ambulatory Aníbal Marroquin II Facility:[facility] Start: 10-06-2021 End: 10-07-2021 ambulatory [facility] Facility: Start: 03-07-2017 End: 03-08-2017 Ambulatory HOMERO ACEVEDO Facility:[facility] Start: 10-25-2016 End: 10-26-2016 Ambulatory HOMERO ACEVEDO Facility:[facility] Start: 10-21-2016 End: 10-22-2016 Ambulatory Светлана Albright Facility:[facility] Start: 10-21-2016 Emergency dept visit high severity&threat funcj Светлана [facility] Procedures Date Procedure Procedure Detail Performing Clinician Start: 11-20-2022 Arthrocentesis aspir &/inj major jt/bursa w/o us Jamie Yañez PA-C Work Phone: Start: 11-20-2022 Radiologic exam knee complete 4/more views Jamie Yañez PA-C Work Phone: Start: 11-02-2022 Mammography Jamie Connors PA-C Work Phone: Start: 02-24-2021 Cystoscopy Christine Modesto mis Abdominal hysterectomy Hilar y Timmis Colonoscopy Christine Collins Decompression of med faraz nerve Christine Collins Destructive procedure Christine Collins History of hernia repair Ricci Collins History of operative procedure on lumbar spinal structure Christine Collins Plan of Treatment Date Care Activity Detail Author Start: 11-03-2023 Mammography MAMMOGRAM [facility] Start: 12-22-2022 Influenza vaccination INFLUENZA (#1) [facility] Start: 10-12-2022 ambulatory Ambulatory Facility:H 1 Start: 04-23-2022 DEPRESSION ASSESSMENT DEPRESSION ASS ESSMENT [facility] Start: 05-27-2021 COVID-19 VACCINE (4 - Moderna series) COVID-19 VACCINE (4 - Moderna series) [facility] Start: 07-15-2017 SHINGRIX VACCINE (1 of 2) SHINGRIX VACCINE (1 of 2) [facility] Start: 07-15-2012 COLOGUARD (FIT-DNA) COLOGUARD (FIT-D NA) [facility] Start: 07-15-2012 Colonoscopy COLONOSCOPY [facility] Start: 07-15-2012 COLORECTAL CANCER SCREENING COLORECTAL CANCER SCREENING [facility] Start: 07-15-[address] COLONOGRAPHY [facility] Start: 07-15-2012 DIABETES SCREEN DIABETES SCREEN [facility] Start: 07-15-2012 FECAL OCCULT BLOOD FECAL OCCULT BLOO D [facility] Start: 07-15-2012 LIPID SCREEN LIPID SCREEN [facility] Start: 07-15-2012 SIGMOIDOSCOPY SIGMOIDOSCOPY [facility] Start: 2007 Mammography MAMMOGRAM [facility] Start: 07-15-1997 HPV TESTING HPV TESTING [facility] Start: 07-15-1988 PAP TESTING PAP TESTING [facility] Start: 07-15-1986 Urine microalbumin profile DTAP,TDAP,TD (1 - Tdap) [facility] Start: 07-15-1985 HEPATITIS C SCREENING HEPATITIS C SC REENING [facility] Start: 07-15-1985 HIV SCREENING HIV SCREENING [facility] Start: 01-16-1968 COVID-19 VACCINE (#1) COVID-19 VACCI NE (#1) [facility] Start: 1967 HEPATITIS B (1 of 3 - 3-dose series) HEPATITIS B (1 of 3 - 3-dose series) [facility] End: 12-03-2023 XR KNEE GENERAL 4V AP BOTH/PA BOTH/LAT/MERC BILATERAL XR KNEE GENERAL 4V AP BOTH/PA BOTH/LAT/MERC BILATERAL Radiology Routine Chronic pain of both knees 1 Occurrences starting 11/03/2022 until 12/03/2023 [facility] Work Phone: Comment on above: 1 Occurrences starti ng 11/03/2022 until [facility] Immunization Date Immunization Notes Care Provider Clark buenrostro 08-21-2020 SARS-CoV-2 (COVID-19 ) mRNA-1273 vaccine Christine Alcazars [facility] 07-22-2020 SARS-CoV-2 (COVID-19 ) mRNA-1273 vaccine Christine Timmis [facility] 02-20-2018 Influenza, injectabl e, Madin Pine Top Canine Kidney, preservative free, quadrivalent Jamie McFrederick PA-C Work Phone: [facility] 03-12-2017 influenza, seasonal, injectable, preservative free Jamie McFrederick PA-C Work Phone: [facility] 02-15-2016 influenza, seasonal, injectable, preservative free Jamie McFrederick PA-C Work Phone: [facility] 02-24-2015 influenza, seasonal, injectable, preservative free Jamie McFrederick PA-C Work Phone: [facility] 01-09-2012 hepatitis B vaccine, pediatric or pediatric/adolescent dosage Jamie McFrederick PA-C Work Phone: [facility] 01-09-2012 hepatitis B vaccine, unspecified formulation Jamie McFrederick PA-C Work Phone: [facility] Payers Date Payer Category Payer Self-pay [id number] [address] [facility] MEDICARE [facility] DUAL COMPLETE HMO POS SNP [id number] 2020-Present [phone] [address] [place] [address] Medicare [id number] 2020 Unknown [id number] 2018 Medicaid [id number] 2017 Unknown [id number] 1967 Unknown [id number] [id number] 1967 Unknown [id number] [id number] 1967 Unknown [id number] [id number] 1967 Unknown [id number] [id number] 1967 Unknown [id number] [id number] 1967 Unknown [id number] [id number] 1967 Unknown [id number] [id number] 1967 Unknown [id number] [id number] 1967 Unknown [id number] [id number] 1967 Unknown [id number] [id number] 1967 Unknown [id number] [id number] 1967 Unknown [id number] [id number] 1959 Unknown [id number] Unknown [id number] Social History Date Type Detail Facility Start: 08-15-2017 End: 01-25-2021 Tobacco smoking status Ex-smoker (finding) [facility] Start: 11-22-2018 End: 11-06-2022 Sex [address] Female [facility] History of tobacco use Current smoker [facility] History of tobacco use Cigarette Smoker C [facility] Start: 08-15-2017 Tobacco use and exposure Smokeless tobacco non-user [facility] Start: 08-14-2018 Alcohol intake Current drinke r of alcohol (finding) [facility] Start: 11-22-2018 End: 11-06-2022 History of Social function [facility] PHQ-2 Score 0 [facility] Start: 08-15-2017 Tobacco Comment quit 2013 [facility] Start: 07-30-2013 Alcohol Comment [facility] Start: 1965 Sex Assigned At Not on file C [facility] Start: 1965 Sex Assigned At Female F [facility] Clinical Notes 10-06-2021 to 11-20-2022 Jamie Yañez PA-C - 11/20/2022 4:47 PM EDTMJamie Connors PA-C - 11/20/2022 9:34 AM Stanley Dwyer RT(R) - 11/20/2022 9:00 AM EDT Note Date & Type Note Facility 11-20-2022 Note HNO ID: [id number] Author: Jamie Yañez PA-C Service: ? Author Type: Physician Network Development Coordinator Type: Progress Notes Filed: 11/20/2022 4:50 PM [...] knee joints Informed Consent Consent Obtained: Verbal Spraggs Protocol A moment to CARE was completed. [...] the patient voiced understanding of these instructions. [facility] 11-20-2022 History of Present illness Narrative Associated [...] knee joints Informed Consent Consent Obtained: Verbal Spraggs Protocol A moment to CARE was completed. [...] exercise. 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 We discuss our Get Ready program. 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 Author Type: Physician Network Development Coordinator Type: Progress Notes Filed: 11/20/2022 4:50 PM [...] exercise. 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 We discuss our Get Ready program. 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 [facility] 11-20-2022 Note HNO ID: [id number] Author: Stanley Martinez RT(R) Service: ? Author [...] RT Quita(R) November 20, 2022 8:40 AM [facility] 11-20-2022 History of Present illness Narrative Radiology [...] 2022 8:40 AM documented in this encounter [facility] 07-06-2022 Note CONSULTATION PROCEDURE DATE: 07/06/2022 [...] injection. Patient tolerated the procedure well. [facility] 06-08-2022 Note CONSULTATION CONSULTATION DATE: 06/08/2022 [...] drive herself. She prefers to go to [place], but it is highly recommended to her to go to the emergency department here at [facility], across the parking lot. We will follow up with her and reschedule her for an appointment. [facility] 02-15-2022 Note CONSULTATION PROCEDURE DATE: 02/15/2022 [...] followed up in the clinic thereafter. [facility] 01-19-2022 Note CONSULTATION CONSULTATION DATE: 01/19/2022 [...] will return in 2-3 weeks' time. [facility] 01-19-2022 Note CONSULTATION PROCEDURE DATE: 01/19/2022 [...] be followed up in the clinic. [facility] 10-18-2021 Note CONSULTATION PROCEDURE DATE: 10/18/2021 [...] range of motion exercises subsequent to this. [facility] Signed and Approved by: DR CADENCE LUKE . 11/01/2021 07:55:00 [facility] 10-06-2021 Note CONSULTATION CONSULTATION DATE: 10/06/2021 [...] plan of care and all questions answered. [facility] Signed and Approved by: ORVILLE PETERS . 10/19/2021 16:23:00 [facility] Evaluation + Plan note No data available for this section [facility] Evaluation note Diagnosis Chronic pain of both knees- Primary [facility] Diagnosis Bilateral primary osteoarthritis of knee- Primary Class 3 severe obesity due to excess calories without serious comorbidity with body mass index (BMI) of 50.0 to 59.9 in adult (HCC) documented in this encounter [facility] note* Diagnosis Chronic pain of both knees documented in this encounter [facility] noteNo assessment information [facility] Work Phone: Hospital Discharge instructions No data available for this section [facility] No data available for this section [facility] CenterReason for referral (narrative)* Diagnostic Procedure Only (Routine) - Pending Review Specialty Diagnoses / Procedures Referred By Timmy singh Referred To Contact XR IMAGING Diagnoses Chronic pain of both knees Procedures XR KNEE GENERAL 4V AP BOTH/PA BOTH/LAT/MERC BILATERAL RADIOLOGIC EXAM KNEE COMPLETE 4/MORE VIEWS Jamie Yañez PA-C [address] [phone] Xr Imaging Referral ID Status Reason Start Date Expiration Date Visits Requested Visits Authorized [id number] Pending Review Auto-Generat ed Referral 11/03/2022 12/03/2023 1 1 [facility] ([facility]ative)* Diagnostic Procedure Only (Routine) - Closed Specialty Diagnoses / Procedures Referred By Timmy singh Referred To Contact XR IMAGING Diagnoses Chronic pain of both knees Procedures XR KNEE GENERAL 4V AP BOTH/PA BOTH/LAT/MERC BILATERAL RADIOLOGIC EXAM KNEE COMPLETE 4/MORE VIEWS Jamie Yañez PA-C [address] [place] [address] Xr Imaging Referral ID Status Reason Start Date Expiration Date V isits Requested Visits Authorized [id number] Closed Auto-Generate d Referral 11/03/2022 12/03/2023 1 1 [facility] Summary Purpose Family History No Family [...] HIGH COMPLEX 45 MINS Jamie Yañez PA-C [address] [place] [address] [facility] [place] [address] [place] [address] Referral ID Status Reason Start Date Expiration Date Visits Requested Visits Authorized [id number] Pending Review Auto-Generat ed Referral 11/20/2022 11/20/2023 1 1 Specialty Diagnoses / Procedures Referred By Timmy singh Referred To Contact Diagnoses Class 3 severe obesity due to excess calories without serious comorbidity with body mass index (BMI) of 50.0 to 59.9 in adult (HCC) Bilateral primary osteoarthritis of knee Procedures ENDOCRINE MEDICAL WEIGHT MANAGEMENT OFFICE/OUTPATIENT NEW HIGH MDM 60-74 MINUTES Jamie Yañez PA-C [address] [phone] Referral ID Status Reason Start Date Expiration Date Visits Requested Visits Authorized [id number] Pending Review PCP Requested Referral 11/20/2022 11/20/2023 [...] section and content) DATE CREATED AUTHOR 10/16/2017 [facility] DATE CREATED AUTHOR AUTHOR'S ORGANIZ ATION 10/17/2017 [facility] DATE CREATED AUTHOR AUTHOR'S ORGANIZ ATION 04/14/2021 [facility] Me dical Specialist DATE CREATED AUTHOR AUTHOR'S ORGANIZ ATION 09/06/2022 [facility] DATE CREATED AUTHOR AUTHOR'S ORGANIZ ATION 11/21/2022 [facility] DATE CREATED AUTHOR AUTHOR'S ORGANIZ ATION 12/23/2022 [facility] DATE CREATED AUTHOR AUTHOR'S ORGANIZ ATION 04/01/2023 [facility] DATE CREATED AUTHOR AUTHOR'S ORGANIZ ATION 05/17/2023 [facility] dical Specialists [facility] Patient Care team informatio n (unrecognized section and content) Manager Golf Relationship Specialty Start Date End Date Kala Conte PCP - General Family Medicine 06/18/17 Judson White [address] [place] [phone] Referring 08/28/22 Manager Golf Relationship Specialty Start Date End Date Kala Conte PCP - General Family Medicine 06/18/17 Judson White [address] [place] [phone] Referring 08/28/22 Manager Golf Relationship Specialty Start Date End Date Kala Conte PCP - General Family Medicine 06/18/17 Judson White [address] [place] [phone] Referring 08/28/22 Source Comments (unrecognize d section and content) In the event this informatio n is protected by the Federal Confidentiality of Alcohol and Drug Abuse Patient Records regulations: The Federal rules restrict any use of the information to criminally investigate or prosecute any alcohol or drug abuse patient.[facility] the event this information is protected by the Federal Confidentiality of Alcohol and Drug Abuse Patient Records regulations: The Federal rules restrict any use of the information to criminally investigate or prosecute any alcohol or drug abuse patient.[facility] HospitalIn the event this information is protected by the Federal Confidentiality of Alcohol and Drug Abuse Patient Records regulations: The Federal rules restrict any use of the information to criminally investigate or prosecute any alcohol or drug abuse patient.[facility] Reason for Visit (unrecogniz ed section and content) Reason Comments Knee Pain Reason Comments Radio Gen A21 Specialty Diagnoses / Procedures Referred By Contac t Referred To Contact XR IMAGING Diagnoses Chronic pain of both knees Procedures XR KNEE GENERAL 4V AP BOTH/PA BOTH/LAT/MERC BILATERAL RADIOLOGIC EXAM KNEE COMPLETE 4/MORE VIEWS Jamie Yañez PA-C [address] [address] Xr Imaging Referral ID Status Reason Start Date Expiration Date V isits Requested Visits Authorized [id number] Closed Auto-Generate d Referral 11/03/2022 12/03/2023 1 [...] BE BASED ON THE PRIMARY CLINICAL RECORDS. [facility] [employer] [facility]. provides no warranty or guarantee of the accuracy or completeness of information in this document.
--- NOTE | 2023-05-21 13:51 | CT_ITS ---
[address] [address] Patient Name: FREDI RICHARDSON MRN: [id number] date: 1965 Sex: F Assigned Patient Location: CT Current Patient Location: CT Accession/Order Number: [id number] Exam Date: 05/21/2023 13:45 Report Date: 05/21/2023 14:42 At the request of: YESI LOWRY Procedure: CT lung screening low-dose EXAMINATION: CT lung screening low-dose HISTORY: Screening For Malignant Neoplasm Z12.2 COMPARISON: 02/03/2021, 09/04/2022 TECHNIQUE: Axial, Coronal, and Sagittal images were created without the administration of IV contrast material. Dose reduction techniques were achieved by using automated exposure control and/or adjustment of mA and/or kV according to patient size and/or use of iterative reconstruction technique. FINDINGS: LUNGS: Mild patchy opacities likely atelectasis most significant medial basilar segment of the right lower lobe. No significant pulmonary nodule or mass. PLEURA: No mass, effusion, or pneumothorax. VASCULATURE: No abnormality. NATHALY: Calcified left hilar lymph nodes MEDIASTINUM: No mass or pathologic adenopathy. CARDIAC: No enlargement, pericardial thickening, or significant calcification. CORONARY ARTERIES: AORTA: No aneurysm or dissection. CHEST WALL: No mass or axillary adenopathy BONES: No bone lesion or fracture. LIMITED ABDOMEN: No suspicious findings. Limited images of the upper abdomen. OTHER: Negative. CT/CT lung screening low-dose IMPRESSION: LUNG SCREENING: Lung-RADS Category 1 Negative. No nodules and definitely benign nodules. Continue annual screening with LDCT in 12 months. Electronically authenticated by: CATHRYN DOBBINS Date: 05/21/2023 14:42
== END 2023-05-21 13:36 | disposition home or self-care (01) ==
LOC: CT 13:35
PROVIDERS: Visit Provider Internal Medicine
DX: Z87.891 Personal history of nicotine dependence (principal); Z12.2 Encounter for screening for malignant neoplasm of respiratory organs
CPT/HCPCS: 71271

== ENCOUNTER 2023-05-29 14:00 | Outpatient (OUT) | payer MEDICARE, MEDICAID, SELFPAY ==
--- NOTE | 2023-05-29 | CONS_ITS ---
CONSULTATION DATE: 05/29/2023 TO: [facility] HISTORY: Patient returns today complaining of bilateral knee pain. She reports that was 95% and 85% better after RFA over the genicular nerve; however, this was short lived and her pain is back to her baseline. RECOMMENDATIONS: Based upon her response thus far, I have recommended no further interventions for her residual pain symptoms involving her knees, and to await bilateral knee arthroplasties. In the interim, we will continue with the medications with the use of Motrin 800 mg daily to b.i.d., tizanidine 4 mg at h.s. as needed, Percocet 5 mg b.i.d., and we will see the patient back in the office in approximately three months? time or sooner if needed. As part of providing excellent, safe, comprehensive care, the following was completed at our patient's visit: 1. A medication reconciliation and review to ensure accurate knowledge of current/active medications, including asking our patients to inform us about any yqfa-iob-vlaalll medications or herbal remedies/nutritional supplements/alternative remedies. 2. A review to specifically ensure our patients have had annual screening for: elevated body mass index (BMI, see intake chart for exact total), tobacco use, screening for depression, and screening for unhealthy alcohol use. When screening is concerning, patients are provided with education and the specific recommendation to discuss the concerning health issue and treatment options with their primary care provider. MEGAN
--- OUTSIDE RECORDS SUMMARY | 2023-05-29 14:07 | XMS_ITS | CCD ---
Author Name Unknown Address [address] [place] [address] Organization [facility] Care Team Providers Care Skiver Uppers Or Linings Name Role Phone ELGAFY, HOMERO K Unavailable Unavailable ELGAFY, HOMERO K Unavailable Unavailable IMM, СВЕТЛАНА P Unavailable Unavailable IMM, СВЕТЛАНА P Unavailable Unavailable ELGAFY, HOMERO K Unavailable Unavailable ELGAFY, HOMERO K Unavailable Unavailable SELF, REFERRED Unavailable Unavailable IMM, СВЕТЛАНА P Unavailable Unavailable Imm, Светлана Carlisle Unavailable Unavailable VITA KING Unavailable Unavaila KALA Ramires Primary Care Physician [phone] GEMA ., DR CADENCE Hsu Attending Unavailable LUKE ., DR CADENCE Hsu Admitting Unavailable PETERS ., [place] Consulting Unavailable [facility] Unava ilable [facility] Consulting Unava ilable LUKE ., DR CADENCE Hsu Attending Unavailable [facility] Unava ilable PETERS ., [place] Consulting Unavailable LUKE ., DR CADENCE Hsu Admitting Unavailable [facility] Unava ilable EDITH, DR SOTOMAYOR Attending Unavailable EDITH, DR SOTOMAYOR Admitting Unavailable PAY ., DR GRIMM Consulting Unavailable EDITH, DR SOTOMAYOR Consulting Unavailable TROTTI, GIROLAMO Consulting Unavailable [facility] Unava ilable MARKER ., DR MENDOZA Attending Unavailable MARKER ., DR MENDOZA Admitting Unavailable MARKER ., DR MENDOZA Consulting Unavailable RISHABH MORENO Consulting Unavailable [facility] Unava ilable PETERS ., [place] Consulting Unavailable LUKE ., DR CADENCE Hsu Admitting Unavailable LUKE ., DR CADENCE Hsu Attending Unavailable [facility] Unava ilable PETERS ., [place] Consulting Unavailable LUKE ., DR CADENCE Hsu Attending Unavailable LUKE ., DR CADENCE Hsu Admitting Unavailable LUKE ., DR CADENCE Hsu Consulting Unavailable [facility] Unava ilable LUKE ., DR CADENCE Hsu Attending Unavailable LUKE ., DR CADENCE Hsu Admitting Unavailable [facility] Unava ilable LORRAINE .[place] Consulting Unavailable LUKE ., DR CADENCE Hsu Attending Unavailable LUKE ., DR CADENCE Hsu Admitting Unavailable LUKE ., DR CADENCE Hsu Consulting Unavailable LUKE ., DR CADENCE Hsu Attending Unavailable [facility] Unava ilable LUKE ., DR CADENCE Hsu Admitting Unavailable [facility] Unava ilable LAKSHMIPATHY ., NARENDRANATH Admitting Emmanuelle vailable LAKSHMIPATHY ., NARENDRANATH Attending Emmanuelle vailable Kala Conte Primary Care Provider Judson White Unavailable Unavailable CONTE, KLAA BLANCHARD Primary Care Unavailable JAMIE YAÑEZ Attending [...] source) penicillin Drug Allergy 6 AOF [facility] (4 sources) prochlorperazine; Translations: [Compazine] Drug Allergy 4 AOF [facility] (10 sources) Penicillins; Translations: [penicillins] Drug allergy 4 Eruption of skin (disorder), Hives [facility] (4 sources) Prochlorperazine; Translations: [prochlorperazine] Drug Allergy 2 Unknown (qualifier value), Eruption of skin (disorder) [facility] (4 sources) Prochlorperazine; Translations: [PROCHLORPERAZINE EDISYLATE] Drug Allergy 4 Mental Status Change [facility] (1 source) Prochlorperazine Drug Allergy 2 [facility] Repository Medications Current Medications Medication Drug Class(es) [...] thereafter, # 42.5 gm, Refills(s) 11, Pharmacy: [facility], 163, cm, 04/14/21 10:37:00 EST, Height/Length Dosing, 148, kg, 04/14/21 10:37:00... Start Date: 04/14/21 Status: Ordered 120 actuat fluticasone propionate 0.22 mg/actuat metered dose inhaler (1 source) Corticosteroid Start: 01-25-2021 take 1 puff(s) by inhalation twice daily Flovent HFA 220 Aerosol = 1 puff(s), Inhalation, BID, Refills(s) 0 Start Date: 01/25/21 Status: Ordered fluticasone 0.05 mg/inh Nasal [place] (1 source) Start: 04-14-2021 fluticasone 0.05 mg/inh Nasal [place] Refill(s) 0 Start Date: 04/14/21 Status: Ordered [...] 08-07-2017 take 1 tablet by mouth once OS-BARDEN 500+D 500 mg(1,250mg) -200 unit per tablet Take 1 tablet by mouth. 0 08/07/2017 Active Comment on above: Take [address] [facility]. citalopram 10 mg oral tablet (3 [...] 01-25-2021 Chronic Other aftercare (1 source) Other senior care (current) drug therapy; Translations: [OTH ALF CURRENT DRUG THERAPY] Onset: 09-06-2022 Episodic Other [...] Range Facility Physician Referralon 023 Physician Referral [phone] [id number] Normal [facility] CNOVon 11-20-2022 CNOV Office Visit (ORTHMN ) FREDI MCKEE ([id number]) 1965 F [place] Date Time Provider Department [...] exercise. 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 We discuss our Get Ready program. 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 Normal [facility] XR KNEE 4V AP/PA/LAT/MERCH B NDon 11-20-2022 XR KNEE 4V AP/PA/LAT/MERCH ARON * [...] 4V AP/PA/LAT/MERCH ARON COMPARISON: None RESULT: Marked [id number] medial compartment narrowing bilaterally with genu varus deformities. Tricompartmental osteophytes bilaterally. No fractures. No joint effusions. 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 No other significant abnormality. - IMPRESSION: MARKED DEGENERATIVE CHANGES IN THE MEDIAL COMPARTMENTS BILATERALLY Food Services Director: PSCB Transcribe Date/Time: Nov 20 2022 8:42A Dictated by : ERASMO VALENTE MD This examination was interpreted and the report reviewed and electronically signed by: ERASMO VALENTE MD on Nov 20 2022 8:43AM EST [id number] Normal [facility] XR KNEE GENERAL 4V AP BOTH/P A BOTH/LAT/MERC BILATERALon 11-20-2022 [facility] BNPon 09-05-2022 Natriuretic peptide B (Bld) [Mass/Vol] 29.0 pg/mL Normal <=900.0 [facility] Comment on above: Performed By: #### H STROPN, BNP, CMP ####[facility] [address] [place], [place] [address]MsDr. Merlene Carr CBC AUTO DIFFon 09-05-2022 BASO # 0.1 103/ul Normal 0.0-0.1 [facility] Comment on above: Performed By: #### C BC #### [facility] [address] [address] [address] Merlene Carr Basophils/100 WBC (Bld) 0.5 % Normal 0.2-2.0 [facility] Comment on above: Performed By: #### C BC #### [facility] [address] [address] [address] Merlene Carr EO # 0.6 103/ul Normal 0.0-0.7 [facility] Comment on above: Performed By: #### C BC #### [facility] [address] [address] [address] Merlene Carr Eosinophils/100 WBC (Bld) 4.9 % Normal 0.9-7.0 [facility] Comment on above: Performed By: #### C BC #### [facility] [address] [address] [address] Merlene Carr Erythrocyte distribution width (RBC) [Ratio] 14.0 % Normal 11.0-15.0 [facility] Comment on above: Performed By: #### C BC #### [facility] [address] [address] [address] Merlene Carr Hematocrit (Bld) [Volume fraction] 41.4 % Normal 36.0-48.0 [facility] Comment on above: Performed By: #### C BC #### [facility] [address] [address] [address] Merlene Carr Hemoglobin (Bld) [Mass/Vol] 13.0 g/dL Normal 12.0-16.0 [facility] Comment on above: Performed By: #### C BC #### [facility] [address] [place] [address] Dr. Merlene Carr IG # 0.05 10e3/ul Critically high 0.00-0.03 [facility] Comment on above: Performed By: #### C BC #### [facility] [address] [place] [address] Dr. Merlene Carr IG % 0.4 % Normal 0.0-0.5 [facility] Comment on above: Performed By: #### C BC #### [facility] [address] [place] [address] Dr. Merlene Carr LYMPH # 3.2 103/ul Normal 1.2-3.8 [facility] Comment on above: Performed By: #### C BC #### [facility] [address] [place] [address] Dr. Merlene Carr Lymphocytes/100 WBC (Bld) 27.2 % Normal 20.5-60.0 [facility] Comment on above: Performed By: #### C BC #### [facility] [address] [place] [address] Dr. Merlene Carr MANUAL DIFF REQ NO Normal [place] Comment on above: Performed By: #### C BC #### [facility] [address] [place] [address] Dr. Merlene Carr MCH (RBC) [Entitic mass] 26.7 pg Normal 26.7-34.0 [facility] Comment on above: Performed By: #### C BC #### [facility] [address] [place] [address] Dr. Merlene Carr MCHC (RBC) [Mass/Vol] 31.4 g/dL Normal 29.9-35.2 [facility] Comment on above: Performed By: #### C BC #### [facility] [address] [place] [address] Dr. Merelne Carr MCV (RBC) [Entitic vol] 85.0 fL Normal 81.0-99.0 [facility] Comment on above: Performed By: #### C BC #### [facility] [address] [address] [address] Merlene Carr MONO # 1.0 103/ul Critically high 0.3-0.8 [facility] Comment on above: Performed By: #### C BC #### [facility] [address] [address] [address] Merlene Carr Monocytes/100 WBC (Bld) 8.8 % Normal 1.7-12.0 [facility] Comment on above: Performed By: #### C BC #### [facility] [address] [address] [address] Merlene Carr NEUT # 6.9 103/ul Critically high 1.4-6.5 [facility] Comment on above: Performed By: #### C BC #### [facility] [address] [place] [address] Dr. Merlene Carr Neutrophils/100 WBC (Bld) 58.2 % Normal 43.0-75.0 [facility] Comment on above: Performed By: #### C BC #### [facility] [address] [address] [address] Merlene Carr Platelet mean volume (Bld) [Entitic vol] 10.2 fL Normal 9.5-13.5 [facility] Comment on above: Performed By: #### C BC #### [facility] [address] [address] [address] Merlene Carr PLT 392 103/ul Normal 150-450 [facility] Comment on above: Performed By: #### C BC #### [facility] [address] [address] [address] Merlene Carr RBC 4.87 106/ul Normal 4.20-5.40 [facility] Comment on above: Performed By: #### C BC #### [facility] [address] [address] [address] Merlene Carr WBC 11.8 103/ul Critically high 4.0-11.[address] [facility] Comment on above: Performed By: #### C BC #### [facility] [address] [address] [address] Merlene Carr CULTURE SPUTUMon 09-05-2022 CULTURE SPUTUM Culture Observations : NORMAL RESPIRATORY MARGARITO. FINAL TO FOLLOW. Normal [facility] Comment on above: Performed By: #### S PUTCX #### [facility] [address] [address] [address] Merlene Carr PROF 14(COMP METB)on 023 Albumin [Mass/Vol] 3.6 g/dL Normal 3.4-5.0 [facility] Comment on above: Performed By: #### H STROPN, BNP, CMP ####[facility] [address] [address]DrMatthew Carr Albumin/Globulin [Mass ratio] 0.9 {ratio} Normal [facility] Comment on above: Performed By: #### H STROPN, BNP, CMP ####[facility] [address] [address]Dr. Merlene Carr ALP [Catalytic activity/Vol] 74 U/L Normal 46-116 [facility] Comment on above: Performed By: #### H STROPN, BNP, CMP ####[facility] [address] [address]Dr. Merlene Carr ALT [Catalytic activity/Vol] 35 U/L Normal 14-59 [facility] Comment on above: Performed By: #### H STROPN, BNP, CMP ####[facility] [address] [address]Dr. Merlene Carr Anion gap [Moles/Vol] 16.8 mmol/L Normal [facility] Comment on above: Performed By: #### H STROPN, BNP, CMP ####[facility] [address] [address]Dr. Merlene Carr AST [Catalytic activity/Vol] 24 U/L Normal 15-37 [facility] Comment on above: Performed By: #### H STROPN, BNP, CMP ####[facility] [address] [address]Dr. Merlene Carr Bilirubin [Mass/Vol] 0.2 mg/dL Normal 0.2-1.0 [facility] Comment on above: Performed By: #### H STROPN, BNP, CMP ####[facility] [address] [address]Dr. Merlene Carr Calcium [Mass/Vol] 9.7 mg/dL Normal 8.5-10.1 [facility] Comment on above: Performed By: #### H STROPN, BNP, CMP ####[facility] [address] [address]Dr. Merlene Carr Chloride [Moles/Vol] 106 mmol/L Normal 98-107 [facility] Comment on above: Performed By: #### H STROPN, BNP, CMP ####[facility] [address] [place], [place] [address]Dr. Merlene Carr CO2 [Moles/Vol] 25.3 mmol/L Normal 21.0-32.0 [facility] Comment on above: Performed By: #### H STROPN, BNP, CMP ####[facility] [address] [place], [place] [address]Dr. Merlene Carr Creatinine [Mass/Vol] 1.14 mg/dL Critically high 0.55-1.02 [facility] Comment on above: Performed By: #### H STROPN, BNP, CMP ####[facility] [address] [address]Dr. Merlene Carr EGFR-AF BENINESE 60 mL/min/1.73m2 Normal >=60 [facility] Comment on above: Performed By: #### H STROPN, BNP, CMP ####[facility] [address] [place], [place] [address]Dr. Merlene Carr EGFR-NON AF BENINESE 49 mL/min/1.73m2 Critically low >=60 [facility] Comment on above: Performed By: #### H STROPN, BNP, CMP ####[facility] [address] [address]Dr. Merlene Carr Globulin (S) [Mass/Vol] 4.2 g/dL Normal [facility] Comment on above: Performed By: #### H STROPN, BNP, CMP ####[facility] [address] [address]Dr. Merlene Carr Glucose [Mass/Vol] 95 mg/dL Normal 74-[address] [facility] Comment on above: Performed By: #### H STROPN, BNP, CMP ####[facility] [address] [address]Dr. Merlene Carr Potassium [Moles/Vol] 4.1 mmol/L Normal 3.5-5.1 [facility] Comment on above: Performed By: #### H STROPN, BNP, CMP ####[facility] [address] [address]Dr. Merlene Carr Protein [Mass/Vol] 7.8 g/dL Normal 6.4-8.[address] [facility] Comment on above: Performed By: #### H STROPN, BNP, CMP ####[facility] [address] [address]Dr. Merlene Carr Sodium [Moles/Vol] 144 mmol/L Normal 136-[address] [facility] Comment on above: Performed By: #### H STROPN, BNP, CMP ####[facility] [address] [address]Dr. Merlene Carr Urea nitrogen [Mass/Vol] 10.0 mg/dL Normal 7.0-18.0 [facility] Comment on above: Performed By: #### H STROPN, BNP, CMP ####[facility] [address] [address]Dr. Merlene Carr Urea nitrogen/Creatinine [Mass ratio] 8.8 mg/mg Normal [facility] Comment on above: Performed By: #### H STROPN, BNP, CMP ####[facility] [address] [address]DrMatthew Carr SPUTUM GRAM STAINon 09-06-19 23 COMMENTS Normal [facility] Comment on above: Performed By: #### S PUTGS #### [facility] [address] [address] [address] Merlene Carr DIPHTHEROIDS Normal [facility] Comment on above: Performed By: #### S PUTGS #### [facility] [address] [address] [address] Merlene Carr EPITHELIALS >25 Normal [facility] Comment on above: Performed By: #### S PUTGS #### [facility] [address] [address] [address] Merlene Carr FUNGAL ELEMENTS Normal [facility] Comment on above: Performed By: #### S PUTGS #### [facility] [address] [address] [address] Merlene Carr GRAM NEG BACILLI Normal [facility] Comment on above: Performed By: #### S PUTGS #### [facility] [address] [address] [address] Merlene Carr GRAM NEG DIPPLOCOCCI Normal [facility] Comment on above: Performed By: #### S PUTGS #### [facility] [address] [address] [address] Merlene Carr GRAM POS BACILLI Normal [facility] Comment on above: Performed By: #### S PUTGS #### [facility] [address] [address] [address] Merlene Carr GRAM POSITIVE COCCI FEW Normal [facility] Comment on above: Performed By: #### S PUTGS #### [facility] [address] [address] [address] Merlene Carr WBC (Bld) [#/Vol] 10*3/uL Normal [facility] Comment on above: Performed By: #### S PUTGS #### [facility] [address] [address] [address] Merlene Carr TROPONIN, HIGH SENSITIVITYon 09-05-2022 HSTROP 9.6 pg/mL Normal 4.0-51.3 [facility] Comment on above: Result Comment: CUT- OFF POINTS HAVE BEEN ESTABLISHED BASED ON THE FOURTH UNIVERSAL DEFINITIONS OF MYOCARDIAL INFARCTION. THE UPPER REFERENCE LIMIT (URL) OF TROPONIN, DEFINED THE 99TH PERCENTILE OF cTnI DISTRIBUTION IN A REFERENCE POPULATION, HAS BEEN CONFIRMED THE DECISION THRESHOLD FOR AR DIAGNOSIS. Performed By: #### H STROPN, BNP, CMP ####[facility] [address] [place], [place] [address]EzMatthew Carr XR CHEST 2 Von 09-05-2022 XR [...] bronchitis. No consolidative pneumonia. Electronically authenticated by: RISHAHB MORENO Date: 2022-09-04 22:55 Normal [facility] Coding Summary.on 08-05-2022 Coding Summary. CD:[id number] Ww +[id number]+[id number] DYduF0yI6QYMXhSHhubJID FVHhGGeGttuWzKM6wpFJfK XJu IC8+VI0kRYWbCaikfBTda3 X0rSC5E35dgp3fPMjjtNU4 WKBxXmFezxvre8wdwAv2UQ cuNmluOyBt LIGewO17WWS2bO94Ea35yA TtyUWsd5lxiFp7AePeQSGz YBW6sGgkVTaot4ApXEFmI0 5fkYUop9S1 LENkfWbzgGFcAbAyeRT8yL 9gXTfbrbnde4dzhdbkTav8 mf68gYYqy6V2fTL7T7Cbfq G5XRNalXYy YuvqdEWZwS6uqdjdg0okue ybNbBvGKSuBCv6VMy0AWNj gEclTwFeOK80ESS1TMMbdt IuV1FfIXWm eYjiUbK1n7F2Oq9GS1HZLw nsU2WHTSUIWRenjEQ+PC90 kw90P9MoFaxcLak4GEFiIJ F9tBR7oR0r OTNxQEegp0B0bWP1Q8Ymwh Kwan8vn5imLRYzSKrcQ17t tDZuq1Y1TWVnwKK8ZRNczE tgBhRtsX96 Oyc+YLSrvXzrh7QtGikyd5 ucm8xuxOd6MhhvFFWvydQv yWcgWNX1f7TsGh0cHTGexR X4rLC9eM1t LhWbDdI4TXevQ639KcMibG ZmHmulJ05zX5EawVP+PHRy Cib4VQBytDftLG3lU1TpXN RpbmctbGVm qVwiXD9nEUPrzdsqZEDxjR 4dHENmT1h6KoAsNfF6LVfe L8AzGGYjsagrPd22zA0mZa ViVxO9BUsu R0EuhhI6GZSekXHcGTdaRD E9X51lv1M4BVQtJZLlRMG6 yUK6aN2gdFykhpyfxJZzlG sgdmVydGlj JLgkTQdvQ309PVAjjNygOy NvZGluZyBEYXRlOiAgMDQv MTUvMjAyMzwvdGQ+PHRkIH X9nIzjZUSy qDSgXHojVn0pjIrvaQonIN 1mCNKbgljoZDBvnK2pHYMn wQApvNmkVT5xVIXzxhrar8 87GhKzFFR5 IGZxhZJiK1AusV2vZeHaFP QuBKGsY0LpbFFvDLnqZ814 ZCttDzZ7TWHlpeGnY7QrJP FsaWduOiB0 p6Y3Qu5Gz5WhexpfG2GkvM InNvLeWmfrGOa8I2PwNfqf dHI+XV72AOIlSM58ZWt5DM V5tSdpJLri NBRvU4TcdZ8kDdHeNLPuZG RkOyc+PHRhYmxlIHdpZHRo RGhrXWJmWlQacNgrYU0vIg 9yZGVyLWNv hYwlzCYrRcNya2okIRLcVS tmNU5vwUisW3JudJU6UOHi h2m9Qd62M59uG6AfyVH+PG JwjHE3nLM4 dU9bQpJlLwS4FHijL517Ys BqsMMrRsqte5gci1obuXb5 ZuT1OVGvhgMltZpuYGZ8u1 UrAt11A53y IHdpZHRoPSIxNSUiIHZhbG wvve6vfY8qVy0+PGNvbCB3 fZE1dD0uFkDzYvI8TQorS1 49InRvcCIv Qmcwy6tra7lnsMr8UfWuEK QxrcYxvTtuSDY3m2UrJi24 Q0ZbmGpor6SuYcf1tc59nO Brf1J5iVD1 D2SxFRTderbjxRNijPdlCH 0xQEWzsuoaLRBisU8dRFXl X9d0FvXhIaS4YAutC2Fhsf Z9VDPasEVs ZYZmxBELnB2arvfdk4iwfm dwFkCjRHEcNBu0NZw4JCWy lWrsSpIsCIL4FkL3ISK7mT YljU2ihAff vvgndA4tJyc+MVP8uSTolB AIGM5yZeyrzBS+PHRkIHN0 jLhhWCuqHGEqlE8lFMLbM0 a2LxAvDpU9 PXgbG4XjloT0ABDefPRlEY AisCKNrN0gjiwkr0inxutr SqMqYJEaBJu3CXy9QBVeiK duOiBsZWZ0 NbM9VRN5oSOoaA0teQuwuw plyN8rNdj+QmlydGggRGF0 RCb6Y4SpMwb5VHWsrJslVR 0ncGFkZGlu Vj2qaWyhyQvkQZ3fYDAicx ehp153QfElz3cqOXBvyTOa UXsmGQO0X36ym8B6OXMwBE YxGHW5mOU2 rN8prKtbiivzoOGlqTksvq OfmIfyRUcqSCgbH519QPAu gHfsWxSbQMn4B9YbMkj6SV NhnBuiGS8e oDOpUJupTh7xfSigiGbaGF 3kQECdvjghr271BfHce3aq ZABrgCSfWPrbWTU9B57te7 C2KCOrTCCp AVV3oHW5rD1rkCzmldpukL VmdDsgdmVydGljYWwtYWxp K617CELnfIrvCzYnyBy9Z8 EfXvd4JRVl aRyaGV3mgGZaZPyhGr7flZ vycNqaCA0lZQYybgspv622 GgKad8glUSQtmMIeIAdeTF S9P60ft8I9 YGHiNLEcBBK8mYK2lY9hzG lnbjogbGVmdDsgdmVydGlj STvxNPpgK404LWXscHaeIa BhdGllbnQg JEmhNMk6L5WgTeaqeYF+PC 33EPQbBQ73pEOrjPHvb8dn aAr1LyHzFTRfGPO3gMskBF krm9QqZZGr V01zpDAgh5L9RDSlaBnxwT PgOiOrsLA6jB4gAElwdwej x6xzyvjbYufcg4xscv97uU 10W24wUZop ZHRoPSIzMCUiIHZhbGlnbj 7qvD3tAw4+JTGkoAV1fKU9 xL4qBRVcNsY6QCidN327Wy RvcCIvPjxj n5sgk9xwoCl6JiB4ECEpnq TixZjsYFX6f1AdCj70H26a IHdpZHRoPSIyMCUiIHZhbG qrgy0pxZ1o Ii8+QZJcoXG5nSZ7dB3gCg QyLuY8TFjwJ638AxAirWPf FpukJ55sX6HzhBL+PHRyPj t9ZLZykGpc IG9erIDeVEegMj7zIUV0Sp NaXsKmNJejE3UbQUBaazlr rdfsqXM4MWPbMSFfyF84Dl 9udDogMTBw jANToE1msearq5hymkdlCk WuEQMlJXa5LAa3WOJliBrs FmQxZIV8XdX9FNF7kRIemQ 1hbGlnbjog jZ2sD8FpDSZuwgctDi22rL 2zTaMiVrE8ZImbTer+Sk9I TlNPTiwgWkVTVEEgQjwvdG Q+PHRkIHN0 aEwiFOgnEHOfjK0sSOHyF0 j5PfMaJrB5KFduX5PdANOs wvaoIm77zE1uDkErTdO7FH cvG6EvvxD5 ZRLoeOIaYAfzPBE2Y83wh6 E3EUGbLCWsDPB3fEF6zF3n bGlnbjogbGVmdDsgdmVydG ljYWwtYWxp F030GCMuoMjvOaQsTfZ7Ne B4Gxy8Z3PxPbx6UVKnaVbj US7fbLZwFKhvPk1svFezjF dbZY0xMWVr ljnjKASggO2tDPFbgPKwoP wiFH8mMVMkdkcsn021AqVd HJZ8SWNtnXSdU2IyuR1oZl AjMDAwMDAw U6WlgHDeIBexL298OLqpEc H7QLQctsThS7WkSORbyWzx BsR0z7E4Fy51XQEXAOSmlp wvdGQ+PHRk ZLU2dYfgIVctVCSlbG0iFM DrA2y2PlHfCeN7JVotM4Gw WKZzmtxeWk86rN6xZbGsPf M8HIhuQ5Il ztB1OPVajYSgEDkdEDL2I4 3nd9H0VOBxODLiHSP7zZA1 xE6ukYgmmuxjdABdiMnapn VydGljYWwt EKdzP126NRAnmWhrGtYcfX FsZTwvdGQ+LIMsKJI8kVcp NFdyGCRzqH7vCODcR2q3Xn HdJgE9WNll A1NpKPFmuzhrJj95yA5lUj WlEoV6KLlhI2EcsyX4WGBz eXPwCLfiMES9O80jp8X9MO MwMDAwMDA7 aPA6rW8nlOdryzwnzKAljX qcglQlsHqoHTsgNIbeQ631 RQLliZpjSe07oOXcgKiwsv M6R0XgLvty dHI+JM18WFDiVT28hLFqbO Wvk8sgqIr1YtEcQZQfMQC3 dAniOAean3SoBMQoP19hnZ Fgl8Y9CVEs lRutmOXwStDoeIQ0mN2tLE gwavunh4xtrrblDhvpa1dr on86eB58F53yULecJAAgUW IzMCUiIHZh rSgyuh6sgL2jEt8+PGNvbC Z5cGX9xZ2bVtRjSuG4MRsb E349BfLweYNnVlybm4opz2 dpeYo5VeXy VUOyalOtjBslVYO8u4OuTl 80Y47fHZglTXMxQOEsQXNh GGFpvZdtyq4etB5oNj9+PC 5ud3jvap32 aA06gEO+HTNuJSM0kAuxHC omUOUznA2jOXjrXdP7LMJg ZgSayE01oNRiMBncFy7yxP uzdShnFJ9a NYWvprzlp183MwNli4edEV TcfSXkDGueLMU5A00kz3F2 FFToMNLxJZG5qFR7kH0pbR lnbjogbGVm dDsgdmVydGljYWwtYWxpZ2 02VNBrsZeeRlXkyKYdI9vp yjIBUP5kPqtpzCZ+PHRkIH A8kComWJxb KAEmqN4kKIVvY9p1QkBpGi S9MXoeH1VzjqW5NARdgQQq PBEdtSBHeG5sqqawa7emgg ogIzAwMDAw VXc1XPv9JQQxzAkmUzYmYX H8SfS7ELD6uUYjrR6qdYck upzhcT9zKlv+RklOOjwvdG Q+PHRkIHN0 lPqsPWdzGPBcbI3fRIJaE0 p8UnEzYeC8FRmiX4EputV8 KVSfvLUeWBPcqTKGvG9fnz vmo7vkmchc HhXcGHAjHZr5SVu4GVCypR sqDmQhMIP1XxE9POY6fCWs kI1moEqgzxdcaI2pMhc+TV JOOjwvdGQ+ OPTpDFZ6gRkwIEybXQEsbS 0wJSQiT9x5ZpRfKwR6WYbr W2HdwhD6YSWjfMOaUPYooM TDsW5ciqek o4obqcipAvOfOVQxIUc4JT l9OOGbkMzwUlDmOJH9FeZ3 ETC6oQLkbZ7vvAnnxbnkxS 9wOyc+UGF5 YAS1ZC65IQ89M2BlLtibgG FibGU+PHRhYmxlIHdpZHRo FVtnTIRhTpVsaLceGF5aGw 9yZGVyLWNv bGxhcHNl (more content not included)... Normal [facility] CT Maxillofacial w/o Contras ton 07-31-2022 [...] MD Transcribed by: ABNER Technologist: RYDER Normal [facility] Consent for Treatmenton 07-22 Consent for Treatment [id number] 0CD:127 Normal [facility] Physician Orderon 07-25-2022 Physician Order [id number] 0CD:127 Normal [facility] Physician Orderon 06-26-2022 Physician Order [id number] 0CD:127 Normal [facility] XR CHEST 2 Von 04-19-2022 XR [...] Jorden STALEY Date: 2022-04-19 19:45 Normal [facility] Q - ALLERGEN INTERPon 2020 INTERPRETATION SEE NOTE Normal [facility] [place] [employer] Comment on above: Order Comment: [facility] performed at: QPT, [facility], [address] [facility], [address] [facility], [place], [address], Machine Rebuilder: Velasquez Caldwell MD [facility] Collection Date/Time: [facility] [...] analytical performance characteristics have been determined by [facility]. It has not been cleared or approved by the U.S. Food and Drug Administration. This assay has been validated pursuant to the CLIA regulations and is used for clinical purposes. Performed By: #### % SBRAST, [id number] #### [facility] Default [address] [place] [address] Q - RESP ALLERGY PROFILE REG ION Von 04-11-2021 ALTERNARIA ALTERNATA (M6) IGE <0.10 Normal [facility] [place] [employer] Comment on above: Order Comment: [facility] performed at: [facility], [address] [place] [address], [address] [place] [address], [address], Machine Rebuilder: Velasquez Caldwell MD [facility] Collection Date/Time: [facility] Results Received Date/Time: [facility] Reported Date/Time: Performed By: #### % SBRAST, [id number] #### [facility] [address] [place] [address] ASPERGILLUS FUMIGATUS (M3) IGE <0.10 Normal [facility] [place] [employer] Comment on above: Order Comment: [facility] performed at: [facility], [address] [facility], [address] [place] [address], [address] [place] [address], Machine Rebuilder: Velasquez Caldwell MD [facility] Collection Date/Time: [facility] Results Received Date/Time: [facility] Reported Date/Time: Performed By: #### % SBRAST, [id number] #### [facility] [address] [place] [address] BERMUDA GRASS (G2) IGE <0.10 Normal [facility] [place] [employer] Comment on above: Order Comment: [facility] performed at: [facility], [facility], [address] [facility], [address] [place] [address], [address] [place] [address], Machine Rebuilder: Velasquez Caldwell MD [facility] Collection Date/Time: [facility] Results Received Date/Time: [facility] Reported Date/Time: Performed By: #### % SBRAST, [id number] #### [facility] Default [address] [place] [id number] BIRCH (T3) IGE <0.10 Normal [facility] Specialist Comment on above: Order Comment: [facility] performed at: [employer], [facility], [address] [facility], [address] [place] [address], [address] [place] [address], Machine Rebuilder: Velasquez Caldwell MD [facility] Collection Date/Time: [facility] Results Received Date/Time: [facility] Reported Date/Time: Performed By: #### % SBRAST, [id number] #### [facility] Default [address] [place] [address] CAT DANDER (E1) IGE <0.[address] [facility] Specialist Comment on above: Order Comment: [facility] performed at: [employer], [facility], [address] [facility], [address] [place] [address], [address] [place] [address], Machine Rebuilder: Velasquez Caldwell MD [facility] Collection Date/Time: [facility] Results Received Date/Time: [facility] Reported Date/Time: Performed By: #### % SBRAST, [id number] #### [facility] [address] [place] [address] CLADOSPORIUM HERBARUM (M2) IGE <0.10 Normal [facility] Specialist Comment on above: Order Comment: [facility] Testing performed at: QPT, [facility], [address] [place] [address], [address] [place] [address], [address] [place] [address], Machine Rebuilder: eVlasquez Caldwell MD [facility] Collection Date/Time: [facility] Results Received Date/Time: [facility] Reported Date/Time: Performed By: #### % SBRAST, [id number] #### [facility] [address] [place] [address] CLASS 0/1 Normal [facility] Comment on above: Order Comment: [facility] Testing performed at: [facility], [facility], [address] [place] [address], [address] [place] [address], [address] [place] [address], Machine Rebuilder: Velasquez Caldwell MD [facility] Collection Date/Time: [facility] Results Received Date/Time: [facility] Reported Date/Time: Performed By: #### % SBRAST, [id number] #### [facility] [address] [place] [address] CLASS 0 Normal [facility] Comment on above: Order Comment: [facility] Testing performed at: [facility], [facility], [address] [place] [address], [address] [place] [address], [address] [place] [address], Machine Rebuilder: Velasquez Caldwell MD [facility] Collection Date/Time: [facility] Results Received Date/Time: [facility] Reported Date/Time: Performed By: #### % SBRAST, [id number] #### [facility] Default [address] [place] [address] COCKROACH (I6) IGE <0.10 Normal [facility] Comment on above: Order Comment: [facility] Testing performed at: [facility], [facility], [address] [place] [address], [address] [place] [address], [address] [place] [address], Machine Rebuilder: Velasquez Caldwell MD [facility] Collection Date/Time: [facility] Results Received Date/Time: [facility] Reported Date/Time: Performed By: #### % SBRAST, [id number] #### [facility] Default [address] [place] [address] COMMON RAGWEED (SHORT) (W1) IGE <0.10 Normal [facility] [place] [employer] Comment on above: Order Comment: [facility] Testing performed at: [facility], [facility], [address] [place] [address], [address] [place] [address], [address] [place] [address], Machine Rebuilder: Velasquez Caldwell MD [facility] Collection Date/Time: [facility] Results Received Date/Time: [facility] Reported Date/Time: Performed By: #### % SBRAST, [id number] #### [facility] Default [address] [place] [address] COTTONWOOD (T14) IGE <0.10 Normal [facility] Specialist Comment on above: Order Comment: [facility] Testing performed at: [facility], [address] [place] [address], [address] [place] [address], [address] [place] [address], Machine Rebuilder: Velasquez Caldwell MD [facility] Collection Date/Time: [facility] Results Received Date/Time: [facility] Reported Date/Time: Performed By: #### % SBRAST, [id number] #### [facility] Default [address] [place] [address] DERMATOPHAGOIDES FARINAE (D2) IGE 0.11 kU/L High [facility] [place] [employer] Comment on above: Order Comment: [facility] Testing performed at: [facility], [facility], [address] [place] [address], [address] [place] [address], [address] [place] [address], Machine Rebuilder: Velasquez Caldwell MD [facility] Collection Date/Time: [facility] Results Received Date/Time: [facility] Reported Date/Time: Performed By: #### % SBRAST, [id number] #### [facility] Default [address] [place] [address] DERMATOPHAGOIDES PTERONYSSINUS (D1) IGE 0.14 kU/L High [facility] Specialist Comment on above: Order Comment: [facility] Testing performed at: [facility], [facility], [address] , [address] [place] [address], [address] [place] [address], Machine Rebuilder: Velasquez Caldwell MD [facility] Collection Date/Time: [facility] Results Received Date/Time: [facility] Reported Date/Time: Performed By: #### % SBRAST, [id number] #### [facility] [address] [place] [address] DOG DANDER (E5) IGE <0.10 Normal [facility] Comment on above: Order Comment: [facility] Testing performed at: QPT, [facility], [address] , [address] [place] [address], [address] [place] [address], Machine Rebuilder: Velasquez Caldwell MD [facility] Collection Date/Time: [facility] Results Received Date/Time: [facility] Reported Date/Time: Performed By: #### % SBRAST, [id number] #### [facility] Default [address] [place] [address] ELM (T8) IGE <0.10 [facility] Specialist Comment on above: Order Comment: [facility] Testing performed at: [facility], [facility], [address] , [address] [place] [address], [address] [place] [address], Machine Rebuilder: Velasquez Caldwell MD [facility] Collection Date/Time: [facility] Results Received Date/Time: [facility] Reported Date/Time: Performed By: #### % SBRAST, [id number] #### [facility] Default [address] [place] [address] HICKORY/PECAN TREE (T22) IGE <0.10 Normal [facility] [place] [employer] Comment on above: Order Comment: [facility] Testing performed at: [facility], [facility], [address] [place] [address], [address] [place] [address], [address] [place] [address], Machine Rebuilder: Velasquez Caldwell MD [facility] Collection Date/Time: [facility] Results Received Date/Time: [facility] Reported Date/Time: Performed By: #### % SBRAST, [id number] #### [facility] Default [address] [place] [address] IMMUNOGLOBULIN E 83 kU/L Normal [facility] [place] [employer] Comment on above: Order Comment: [facility] Testing performed at: [employer], [facility], [address] [place] [address], [address] [place] [address], [address] [place] [address], Machine Rebuilder: Velasquez Caldwell MD [facility] Collection Date/Time: [facility] Results Received Date/Time: [facility] Reported Date/Time: Performed By: #### % SBRAST, [id number] #### [facility] Default [address] [place] [address] MAPLE (BOX ELDER) (T1) IGE <0.10 Normal [facility] [place] [employer] Comment on above: Order Comment: [facility] Testing performed at: [employer], [facility], [address] [place] [address], [address] [place] [address], [address] [place] [address], Machine Rebuilder: Velasquez Caldwell MD [facility] Collection Date/Time: [facility] Results Received Date/Time: [facility] Reported Date/Time: Performed By: #### % SBRAST, [id number] #### [facility] Default [address] [place] [address] MOUNTAIN CEDAR (T6) IGE <0.10 Normal [facility] [place] [employer] Comment on above: Order Comment: [facility] Testing performed at: [employer], [facility], [address] [place] [address], [address] [place] [address], [address] [place] [address], Machine Rebuilder: Velasquez Caldwell MD [facility] Collection Date/Time: [facility] Results Received Date/Time: [facility] Reported Date/Time: Performed By: #### % SBRAST, [id number] #### [facility] Default [address] [place] [address] MOUSE URINE PROTEINS (E72) IGE <0.10 Normal [facility] Specialist Comment on above: Order Comment: [facility] Testing performed at: [employer], [facility], [address] [facility], [address] [place] [address], [address], Machine Rebuilder: Velasquez Caldwell MD [facility] Collection Date/Time: [facility] Results Received Date/Time: [facility] Reported Date/Time: Performed By: #### % SBRAST, [id number] #### [facility] Default [address] [place] [address] OAK (T7) IGE <0.10 Normal [facility] [place] [employer] Comment on above: Order Comment: [facility] Testing performed at: [employer], [facility], [address] [place] [address], [address] [place] [address], [address] [place] [address], Machine Rebuilder: Velasquez Caldwell MD [facility] Collection Date/Time: [facility] Results Received Date/Time: [facility] Reported Date/Time: Performed By: #### % SBRAST, [id number] #### [facility] Default [address] [place] [id number] PENICILLIUM NOTATUM (M1) IGE <0.10 Normal [facility] Specialist Comment on above: Order Comment: [facility] Testing performed at: [facility], [facility], [address] [place] [address], [address] [place] [address], [address] [place] [address], Machine Rebuilder: Velasquez Caldwell MD [facility] Collection Date/Time: [facility] Results Received Date/Time: [facility] Reported Date/Time: Performed By: #### % SBRAST, [id number] #### [facility] Default [address] [place] [address] ROUGH PIGWEED (W14) IGE <0.10 Normal [facility] Specialist Comment on above: Order Comment: [facility] Testing performed at: [employer], [facility], [address] [facility], [address] [place] [address], [address] [place] [address], Machine Rebuilder: Velasquez Caldwell MD [facility] Collection Date/Time: [facility] Results Received Date/Time: [facility] Reported Date/Time: Performed By: #### % SBRAST, [id number] #### [facility] Default [address] [place] [address] DUTCH THISTLE (W11) IGE <0.10 [facility] Specialist Comment on above: Order Comment: [facility] Testing performed at: [employer], [facility], [address] [place] [address], [address] [place] [address], [address] [place] [address], Machine Rebuilder: Velasquez Caldwell MD [facility] Collection Date/Time: [facility] Results Received Date/Time: [facility] Reported Date/Time: Performed By: #### % SBRAST, [id number] #### [facility] Default [address] [place] [address] SHEEP SORREL (W18) IGE 0.13 kU/L [facility] Comment on above: Order Comment: [facility] Testing performed at: [employer], [facility], [address] [facility], [address] [place] [address], [address] [place] [address], Machine Rebuilder: Velasquez Caldwell MD [facility] Collection Date/Time: [facility] Results Received Date/Time: [facility] Reported Date/Time: Performed By: #### % SBRAST, [id number] #### [facility] Default [address] [place] [address] SYCAMORE (T11) IGE 0.10 kU/L [facility] [place] [facility] Comment on above: Order Comment: [facility] Testing performed at: [employer], [facility], [address] , [address] [place] [address], [address] [place] [address], Machine Rebuilder: Velasquez Caldwell MD [facility] Collection Date/Time: [facility] Results Received Date/Time: [facility] Reported Date/Time: Performed By: #### % SBRAST, [id number] #### [facility] Default [address] [place] [address] ANÍBAL GRASS (G6) IGE <0.10 Normal [facility] [place] [employer] Comment on above: Order Comment: [facility] Testing performed at: [employer], [facility], [address] , [address] [place] [address], [address] [place] [address], Machine Rebuilder: Velasquez Caldwell MD [facility] Collection Date/Time: [facility] Results Received Date/Time: [facility] Reported Date/Time: Performed By: #### % SBRAST, [id number] #### [facility] Default [address] [place] [address] WALNUT TREE (T10) IGE <0.10 Normal [facility] [place] [employer] Comment on above: Order Comment: [facility] Testing performed at: [employer], [facility], [address] , [address] [place] [address], [address] [place] [address], Machine Rebuilder: Velasquez Caldwell MD [facility] Collection Date/Time: [facility] Results Received Date/Time: [facility] Reported Date/Time: Performed By: #### % SBRAST, [id number] #### [facility] Default [address] [place] [address] WHITE NORBERTO (T15) IGE <0.10 Normal [facility] [place] [employer] Comment on above: Order Comment: [facility] Testing performed at: [employer], [facility], [address] , [address] [place] [address], [address] [place] [address], Machine Rebuilder: Velasquez Caldwell MD [facility] Collection Date/Time: [facility] Results Received Date/Time: [facility] Reported Date/Time: Performed By: #### % SBRAST, [id number] #### [facility] Default [address] [place] [address] WHITE MULBERRY (T70) IGE <0.10 Normal [facility] [place] [employer] Comment on above: Order Comment: [facility] Testing performed at: [facility], [facility], [address] [facility], [address] [place], [address], Machine Rebuilder: Velasquez Caldwell MD [facility] Collection Date/Time: [facility] Results Received Date/Time: [facility] Reported Date/Time: Performed By: #### % SBRAST, [id number] #### [facility] Default [address] [place] [address] LUMBAR SPINE 2 OR 3 [facility] LUMBAR SPINE 2 OR 3 [facility] P[facility]ewv[address] [place] [id number] ========Patient Name: FREDI MCKEE : 1965Sex: FAge: Race: BlackMRN: [id number]. Location: 84Patient Status: Date: 03/07/2017 8:30:00 AMCompleted Date: 03/07/2017 08:35 AMRequesting Provider: HOMERO ACEVEDO Attending Provider: Report Copy To: Signs & Symptoms: M51.36 Other intervertebral disc degeneration, lumbar region [id number]: AthenaComments: , , Views (X-RAY, LUMBAR SPINE): AP, Lateral, L5-S1 Spot , Weight Bearing?: Y , , , Ordering Provider - HOMERO ACEVEDO MD , Exam: LUMBAR SPINE 2 OR 3 VWSAccession #: [id number] LUMBAR SPINE 2 OR 3 VWS 03/07/2017 [...] findings. Electronically signed by:Alex Galarza. Transcribed by: [email or web address], User Resident: CHAD MALONEANElectronically Signed by: ALEX GALARZA @ 03/07/2017 02:18 PMI personally read this/these film(s) with this resident Normal [facility] Comment on above: Order Comment: , , V iews (X-RAY, LUMBAR SPINE): AP, Lateral, L5-S1 Spot , Weight Bearing?: Y , , , Ordering Provider - HOMERO ACEVEDO MD , LUMBAR SPINE 2 OR 3 [facility] LUMBAR SPINE 2 OR 3 [facility] [address] [place], [place] [address] ========Patient Name: FREDI MCKEE : 1965Sex: FAge: Race: BlackMRN: [id number]. Location: Patient Status: Date: 10/25/2016 8:45:00 AMCompleted Date: 10/25/2016 08:50 AMRequesting Provider: HOMERO ACEVEDO Attending Provider: Report Copy To: Signs & Symptoms: M51.36 Other intervertebral disc degeneration, lumbar region [id number]: AthenaComments: , , Views (X-RAY, LUMBAR SPINE): AP, Lateral, L5-S1 Spot , Weight Bearing?: Y , , , Ordering Provider - HOMERO SALMON MD , Exam: LUMBAR SPINE 2 OR 3 VWSAccession #: [id number] LUMBAR SPINE 2 OR 3 VWS 10/25/2016 [...] disease. Electronically signed by:Moriah Krueger. Transcribed by: [email or web address], User Resident: Electronically Signed by: MORIAH KRUEGER @ 10/25/2016 03:33 PM Normal [facility] Comment on above: Order Comment: , , V iews (X-RAY, LUMBAR SPINE): AP, Lateral, L5-S1 Spot , Weight Bearing?: Y , , , Ordering Provider - HOMERO SALMON MD , BNPon 10-22-2016 BNP 8 pg/mL Normal 0 - 99 [facility] Comment on above: Result Comment: . <1 00 pg/mL - Heart failure [id number] pg/mL - Intermediate probability of acute heart. failure exacerbation. Correlate with clinical. context and patient history. >=300 pg/mL - Heart Failure likely. Correlate with clinical. context and patient history.BNP testing is performed using different testingmethodology at [facility] than at [facility]. Direct result comparisons shouldonly be made within the same method. Performed By: #### B NP2 ####[facility] [facility], [phone] CBC AND DIFFERENTIALon 10-22 % AUTOMATED IMMATURE GRAN 0.2 % Normal 0.0 - 0.9 [facility] Comment on above: Result Comment: Perc ent differential counts (%) should be interpreted in the context of the absolute cell counts (cells/L). Performed By: #### C BCDF ####[facility] [facility], [phone] % NEUTROPHIL 55.7 % Normal 40.0 - 80.0 [facility] Comment on above: Performed By: #### C BCDF ####[facility] [facility], [phone] Basophils/100 WBC Auto (Bld) 0.05 x10E9/L Normal 0.00 - 0.10 [facility] Comment on above: Performed By: #### C BCDF ####[facility] [facility], [phone] Basophils/100 WBC Auto (Bld) 0.5 % Normal 0.0 - 2.0 [facility] Comment on above: Performed By: #### C BCDF ####[facility] [facility], [phone] Eosinophils 0.23 10*3/uL Normal 0.00 - 0.70 [facility] Comment on above: Performed By: #### C BCDF ####[facility] [facility] [place], [phone] Eosinophils/100 leukocytes 2.1 % Normal 0.0 - 6.0 [facility] Comment on above: Performed By: #### C BCDF ####[facility],[facility], [phone] Erythrocyte distribution width Auto Ratio (RBC) 17.0 % High 11.5 - 14.5 [facility] Comment on above: Performed By: #### C BCDF ####[facility] [facility], [phone] Erythrocytes (RBC) 5.38 x10E12/L High 4.00 - 5.20 [facility] Comment on above: Performed By: #### C BCDF ####[facility] [facility], [phone] Hematocrit (HCT) 39.8 % Normal 36.0 - 46.0 [facility] Comment on above: Performed By: #### C BCDF ####[facility] [facility], [phone] Hemoglobin mass conc (Bld) 12.7 g/dL Normal 12.0 - 16.0 [facility] Comment on above: Performed By: #### C BCDF ####[facility] [facility], [phone] Lymphocytes 3.64 10*3/uL Normal 1.20 - 4.80 [facility] Comment on above: Performed By: #### C BCDF ####[facility] [facility], [phone] Lymphocytes/100 leukocytes 33.4 % Normal 13.0 - 44.0 [facility] Comment on above: Performed By: #### C BCDF ####[facility] [facility], [phone] MCHC mass conc (RBC) 31.9 g/dL Low 32.0 - 36.0 [facility] Comment on above: Performed By: #### C BCDF ####[facility] [facility], [phone] MCV 74 fL Low 80 - 100 [facility] Comment on above: Performed By: #### C BCDF ####[facility] [facility], [phone] Monocytes 0.88 10*3/uL Normal 0.10 - 1.00 [facility] [place] Comment on above: Performed By: #### C BCDF ####[facility] [place] [facility], [phone] Monocytes/100 leukocytes 8.1 % Normal 2.0 - 10.0 [facility] [place] Comment on above: Performed By: #### C BCDF ####[facility] [place] [facility], [phone] Neutrophils 6.07 10*3/uL Normal 1.20 - 7.70 [facility] [place] Comment on above: Performed By: #### C BCDF ####[facility] [place] [facility], [phone] Platelets 453 10*3/uL High 150 - 450 [facility] [place] Comment on above: Performed By: #### C BCDF ####[facility] [place] [facility], [phone] WBC (Leukocytes) 10.9 10*3/uL Normal 4.4 - 11.3 [facility] Comment on above: Performed By: #### C BCDF ####[facility] [place] [facility], [phone] COMPREHENSIVE PANELon 2016 Alanine aminotransferase (ALT) 27 U/L Normal 7 - 45 [facility] [place] Comment on above: Result Comment: Janeth ents treated with Sulfasalazine may generate falsely decreased results for ALT. Performed By: #### C MP ####[facility] [place] [facility], [phone] Albumin 4.0 g/dL Normal 3.4 - 5.0 [facility] [place] Comment on above: Performed By: #### C MP ####[facility] [place] [facility], [phone] Alkaline phosphatase (ALP) 74 U/L Normal 33 - 110 [facility] [place] Comment on above: Performed By: #### C MP ####[facility] [place] [facility], [phone] Anion gap 17 mmol/L Normal 10 - 20 [facility] [place] Comment on above: Performed By: #### C MP ####[facility] [place] [facility], [phone] Aspartate aminotransferase (AST) 30 U/L Normal 9 - 39 [facility] [place] Comment on above: Result Comment: MILD HEMOLYSIS DETECTED. The result may be falsely elevated due tohemolysis or other interferents. Clinical correlation is recommended.Repeat testing may be considered. Performed By: #### C MP ####[facility] [place] [facility], [phone] Bicarbonate (HCO3) 22 mmol/L Normal 21 - 32 [facility] Comment on above: Performed By: #### C MP ####[facility] [place] [facility], [phone] Bilirubin (total) 0.5 mg/dL Normal 0.0 - 1.2 [facility] Comment on above: Performed By: #### C MP ####[facility] [place] [facility], [phone] Calcium 9.7 mg/dL Normal 8.6 - 10.6 [facility] [place] Comment on above: Performed By: #### C MP ####[facility] [place] [facility], [phone] Chloride 103 mmol/L Normal 98 - 107 [facility] [place] Comment on above: Performed By: #### C MP ####[facility] [place] [facility], [phone] Creatinine 1.13 mg/dL High 0.50 - 1.05 [facility] [place] Comment on above: Performed By: #### C MP ####[facility] [place] [facility], [phone] eGFR (non-black) 51 mL/min/{1.73_m2} Invalid Interpretation Code >60 [facility] [place] Comment on above: Performed By: #### C MP ####[facility] [place] [facility], [phone] eGFR (non-black) 62 mL/min/{1.73_m2} Normal >60 [facility] [place] Comment on above: Result Comment: CALC ULATIONS OF ESTIMATED GFR ARE PERFORMED USING THE MDRD STUDY EQUATION FOR THE IDMS-TRACEABLE CREATININE METHODS. CLIN CHEM 2007;53:766-72 Performed By: #### C MP ####[facility] [place] [facility], [phone] Glucose mass conc 126 mg/dL High 74 - 99 [facility] Comment on above: Performed By: #### C MP ####[facility] [place] [facility], [phone] Potassium molar conc 4.2 mmol/L Normal 3.5 - 5.3 [facility] Comment on above: Result Comment: MILD HEMOLYSIS DETECTED. The result may be falsely elevated due tohemolysis or other interferents. Clinical correlation is recommended.Repeat testing may be considered. Performed By: #### C MP ####[facility] [place] [facility], [phone] Protein 8.1 g/dL Normal 6.4 - 8.2 [facility] [place] Comment on above: Performed By: #### C MP ####[facility] [place] [facility], [phone] Sodium 138 mmol/L Normal 136 - 145 [facility] [place] Comment on above: Performed By: #### C MP ####[facility] [place] ,[facility], [phone] Urea nitrogen 13 mg/dL Normal 6 - 23 [facility] [place] Comment on above: Performed By: #### C MP ####[facility] [place] [facility], [phone] TROPONIN Ion 10-22-2016 Troponin I.cardiac mass conc ng/mL Normal 0.00 - 0.03 [facility] [place] Comment on above: Result Comment: LESS THAN 0.04 NG/ML: NEGATIVEREPEAT TESTING IN FOUR TO SIX HOURSIF CLINICALLY INDICATED.0.04 - 0.5 NG/ML: CONSISTENT WITH POSSIBLECARDIAC DAMAGE AND POSSIBLE INCREASEDCLINICAL RISK.SERIAL MEASUREMENTS MAY HELP ASSESS EXTENT OFMYOCARDIAL DAMAGE.>0.5 NG/ML: CONSISTENT WITH CARDIAC DAMAGE,INCREASED CLINICAL RISK AND MYOCARDIALINFARCTION. SERIAL MEASUREMENTS MAY HELPASSESS EXTENT OF MYOCARDIAL DAMAGE..Note: Troponin I testing is performed using differenttesting methodology at [facility] than at [facility]. Direct result comparisons should onlybe made within the same method. Performed By: #### T ROP2 ####[facility] [place] [facility], [phone] CHEST 2 VIEW PA AND LATon CHEST [...] cardiopulmonary process.Electronically signed by: EWA NEELY MD [facility] Large Joint Arthro/Inj: bila teral knee joints [facility] Vital Signs Date Time Vital Sign Value Performing Clinician Brandon blue 11-20-2022 09:32-0400 Body height 162.6 cm Jamie Yañez PA-C Work Phone: [facility] 11-20-2022 09:32-0400 Body weight 149.05 kg Jamie Yañez PA-C Work Phone: [facility] Encounters Encounter Date Encounter Type Care Provider Facility Start: 05-16-2023 End: 05-16-2023 ambulatory CHRISTINE COLLINS Not Available Start: 03-09-2023 ambulatory Christine Collins Facility: [facility] Start: 11-20-2022 End: 11-20-2022 ambulatory KALA CONTE Facility:[facility] Start: 11-20-2022 End: 11-20-2022 Patient encounter procedure Jamie Yañez PA-C Work Phone: Orthopaedics Comment on above: Bilateral primary os teoarthritis of knee (Primary Dx); Class 3 severe obesity due to excess calories without serious comorbidity with body mass index (BMI) of 50.0 to 59.9 in adult ([facility]) Start: 11-20-2022 End: 11-20-2022 Subsequent hospital visit by physician Xr [facility] Comment on above: Chronic pain of both knees [M25.561, M25.562, G89.29] Start: 11-03-2022 Orders Only Jamie pate PA-C Work Phone: Orthopaedics Comment on above: Chronic pain of both knees (Primary Dx) Start: 09-04-2022 End: 09-05-2022 ambulatory [facility] Facility: Start: 07-31-2022 End: 08-01-2022 ambulatory Christine Collins Facility:[facility] Start: 07-31-2022 End: 07-31-2022 Patient encounter procedure Christine Collins [facility] Start: 07-06-2022 End: 07-07-2022 ambulatory [facility] Facility:[facility] Start: 06-08-2022 End: 06-09-[address] CADENCE LUKE . Facility:[facility] Start: 05-18-[address] CADENCE LUKE . Faci lity:[facility] Start: 04-19-2022 End: 04-19-2022 ambulatory [facility] Facility:[facility] Start: 02-15-2022 End: 02-16-[address] CADENCE LUKE . Facility:[facility] Start: 01-19-2022 End: 01-20-2022 ambulatory [facility] Facility: Start: 10-18-2021 End: 10-19-[address] CADENCE LUEK . Facility: Start: 10-07-2021 End: 10-08-2021 ambulatory Aníbal Marroquin II Facility:[facility] Start: 10-06-2021 End: 10-07-2021 ambulatory [facility] Facility: Start: 03-07-2017 End: 03-08-2017 Ambulatory HOMERO ACEVEDO Facility:[facility] Start: 10-25-2016 End: 10-26-2016 Ambulatory HOMERO ACEVEDO Facility:[facility] Start: 10-21-2016 End: 10-22-2016 Ambulatory Светлана Albright Facility:[facility] Start: 10-21-2016 Emergency dept visit high severity&threat funcj Светлана [facility] Procedures Date Procedure Procedure Detail Performing Clinician [...] Activity Detail Author Start: 11-03-2023 Mammography MAMMOGRAM [facility] Start: 12-22-2022 Influenza vaccination INFLUENZA (#1) [facility] Start: 10-12-2022 ambulatory Ambulatory Facility:[facility] 1 Start: 04-23-2022 DEPRESSION ASSESSMENT DEPRESSION ASS ESSMENT [facility] Start: 05-27-2021 COVID-19 VACCINE (4 - Moderna series) COVID-19 VACCINE (4 - Moderna series) [facility] Start: 07-15-2017 SHINGRIX VACCINE (1 of 2) SHINGRIX VACCINE (1 of 2) [facility] Start: 07-15-2012 COLOGUARD (FIT-DNA) COLOGUARD (FIT-D NA) [facility] Start: 07-15-2012 Colonoscopy COLONOSCOPY [facility] Start: 07-15-2012 COLORECTAL CANCER SCREENING COLORECTAL CANCER SCREENING [facility] Start: 07-15-[address] COLONOGRAPHY [facility] Start: 07-15-2012 DIABETES SCREEN DIABETES SCREEN [facility] Start: 07-15-2012 FECAL OCCULT BLOOD FECAL OCCULT BLOO D [facility] Start: 07-15-2012 LIPID SCREEN LIPID SCREEN [facility] Start: 07-15-2012 SIGMOIDOSCOPY SIGMOIDOSCOPY [facility] Start: 2007 Mammography MAMMOGRAM [facility] Start: 07-15-1997 HPV TESTING HPV TESTING [facility] Start: 07-15-1988 PAP TESTING PAP TESTING [facility] Start: 07-15-1986 Urine microalbumin profile DTAP,TDAP,TD (1 - Tdap) [facility] Start: 07-15-1985 HEPATITIS C SCREENING HEPATITIS C SC REENING [facility] Start: 07-15-1985 HIV SCREENING HIV SCREENING [facility] Start: 01-16-1968 COVID-19 VACCINE (#1) COVID-19 VACCI NE (#1) [facility] Start: 1967 HEPATITIS B (1 of 3 - 3-dose series) HEPATITIS B (1 of 3 - 3-dose series) [facility] End: 12-03-2023 XR KNEE GENERAL 4V AP BOTH/PA BOTH/LAT/MERC BILATERAL XR KNEE GENERAL 4V AP BOTH/PA BOTH/LAT/MERC BILATERAL Radiology Routine Chronic pain of both knees 1 Occurrences starting 11/03/2022 until 12/03/2023 [facility] Work Phone: Comment on above: 1 Occurrences starti ng 11/03/2022 until 12/03/20[facility] Immunization Date Immunization Notes Care Provider Clark buenrostro 08-21-2020 SARS-CoV-2 (COVID-19 ) mRNA-1273 vaccine Christine Alcazars [facility] 07-22-2020 SARS-CoV-2 (COVID-19 ) mRNA-1273 vaccine Christine Timmis [facility] 02-20-2018 Influenza, injectabl e, Madin [place] Canine Kidney, preservative free, quadrivalent Jamie McFrederick PA-C Work Phone: [facility] 03-12-2017 influenza, seasonal, injectable, preservative free Jamie McFrederick PA-C Work Phone: [facility] 02-15-2016 influenza, seasonal, injectable, preservative free Jamie McFrederick PA-C Work Phone: [facility] 02-24-2015 influenza, seasonal, injectable, preservative free Jamie McFrederick PA-C Work Phone: [facility] 01-09-2012 hepatitis B vaccine, pediatric or pediatric/adolescent dosage Jamie McFrederick PA-C Work Phone: [facility] 01-09-2012 hepatitis B vaccine, unspecified formulation Jamie McFrederick PA-C Work Phone: [facility] Payers Date Payer Category Payer Self-pay [id number] [facility] 2020 Medicare [facility] MEDICARE [facility] DUAL COMPLETE HMO POS SNP [id number] 2020-Present [phone] [address] [place] [address] Medicare [id number] 2020 Unknown [id number] 2018 Medicaid [id number] 2017 Unknown [id number] 1967 Unknown [id number] [id number] 1967 Unknown [id number] [id number] 1967 Unknown [id number] [id number] 1967 Unknown [id number] [id number] 1967 Unknown [id number] [id number] 1967 Unknown [id number] [id number] 1967 Unknown [id number] [id number] 1967 Unknown [id number] [id number] 1967 Unknown [id number] [id number] 1967 Unknown [id number] [id number] 1967 Unknown [id number] [id number] 1967 Unknown [id number] [id number] 1959 Unknown [id number] Unknown [id number] Social History Date Type Detail Facility Start: 08-15-2017 End: 01-25-2021 Tobacco smoking status Ex-smoker (finding) [facility] Start: 11-22-2018 End: 11-06-2022 Sex Assigned At Female [facility] History of tobacco use Current smoker [facility] History of tobacco use Cigarette Smoker C [facility] Start: 08-15-2017 Tobacco use and exposure Smokeless tobacco non-user [facility] Start: 08-14-2018 Alcohol intake Current drinke r of alcohol (finding) [facility] Start: 11-22-2018 End: 11-06-2022 History of Social function [facility] PHQ-2 Score 0 [facility] Start: 08-15-2017 Tobacco Comment quit 2013 [facility] Start: 07-30-2013 Alcohol Comment social [facility] Start: 1965 Sex Assigned At Not on file C [facility] Start: 1965 Sex Assigned At Female F [facility] Clinical Notes 10-06-2021 to 11-20-2022 Jamie Yañez PA-C - 11/20/2022 4:47 PM EDTMJamie Connors PA-C - 11/20/2022 9:34 AM Stanley Dwyer RT(R) - 11/20/2022 9:00 AM EDT Note Date & Type Note Facility 11-20-2022 Note HNO ID: [id number] Author: Jamie Yañez PA-C Service: ? Author Type: Physician Improvement Lead Type: Progress Notes Filed: 11/20/2022 4:50 PM [...] knee joints Informed Consent Consent Obtained: Verbal [place] Protocol A moment to CARE was completed. [...] the patient voiced understanding of these instructions. [facility] 11-20-2022 History of Present illness Narrative [...] knee joints Informed Consent Consent Obtained: Verbal [place] Protocol A moment to CARE was completed. [...] exercise. 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 We discuss our Get Ready program. 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 Author Type: Physician Improvement Lead Type: Progress Notes Filed: 11/20/2022 4:50 PM [...] exercise. 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 We discuss our Get Ready program. 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 Smoking Status: Quit 16 years ago Alcohol [...] Normal: no dx (more content not included)... [facility] 11-20-2022 Note HNO ID: [id number] Author: Stanley Martinez RT(R) Service: ? Author [...] RT Quita(R) November 20, 2022 8:40 AM [facility] 11-20-2022 History of Present illness Narrative [...] 2022 8:40 AM documented in this encounter [facility] 07-06-2022 Note CONSULTATION PROCEDURE DATE: 07/06/2022 HISTORY: [...] injection. Patient tolerated the procedure well. [facility] 06-08-2022 Note CONSULTATION CONSULTATION DATE: [...] drive herself. She prefers to go to [place], but it is highly recommended to her to go to the emergency department here at [facility], across the parking lot. We will follow up with her and reschedule her for an appointment. [facility] 02-15-2022 Note CONSULTATION PROCEDURE DATE: [...] followed up in the clinic thereafter. [facility] 01-19-2022 Note CONSULTATION CONSULTATION DATE: [...] will return in 2-3 weeks' time. [facility] 01-19-2022 Note CONSULTATION PROCEDURE DATE: [...] be followed up in the clinic. [facility] 10-18-2021 Note CONSULTATION PROCEDURE DATE: [...] range of motion exercises subsequent to this. [facility] Signed and Approved by: DR CADENCE LUKE . 11/01/2021 07:55:00 [facility] 10-06-2021 Note CONSULTATION CONSULTATION DATE: [...] plan of care and all questions answered. [facility] Signed and Approved by: ORVILLE PETERS . 10/19/2021 16:23:00 [facility] Evaluation + Plan note No data available for this section [facility] Evaluation note Diagnosis Chronic pain of both knees- Primary [facility] Diagnosis Bilateral primary osteoarthritis of knee- Primary Class 3 severe obesity due to excess calories without serious comorbidity with body mass index (BMI) of 50.0 to 59.9 in adult (HCC) documented in this encounter [facility] note* Diagnosis Chronic pain of both knees documented in this encounter [facility] noteNo assessment information availableLouis [facility] Work Phone: Hospital Discharge instructions No data available for this section [facility] No data available for this section [facility] (narrative)* Diagnostic Procedure Only (Routine) - Pending Review Specialty Diagnoses / Procedures Referred By Timmy singh Referred To Contact XR IMAGING Diagnoses Chronic pain of both knees Procedures XR KNEE GENERAL 4V AP BOTH/PA BOTH/LAT/MERC BILATERAL RADIOLOGIC EXAM KNEE COMPLETE 4/MORE VIEWS Jamie Yañez PA-C [address] [phone] Xr Imaging Referral ID Status Reason Start Date Expiration Date Visits Requested Visits Authorized [id number] Pending Review Auto-Generat ed Referral 11/03/2022 12/03/2023 1 1 [facility] (n[facility]ative)* Diagnostic Procedure Only (Routine) - Closed Specialty Diagnoses / Procedures Referred By Timmy singh Referred To Contact XR IMAGING Diagnoses Chronic pain of both knees Procedures XR KNEE GENERAL 4V AP BOTH/PA BOTH/LAT/MERC BILATERAL RADIOLOGIC EXAM KNEE COMPLETE 4/MORE VIEWS Jamie Yañez PA-C [address] [place] [address] Xr Imaging Referral ID Status Reason Start Date Expiration Date V isits Requested Visits Authorized [id number] Closed Auto-Generate d Referral 11/03/2022 12/03/2023 1 1 [facility] Summary Purpose Family History No Family History [...] COMPLEX 45 MINS Jamie Yañez PA-C [address] [place] [address] [facility] [address] [place] [address] Referral ID Status Reason Start Date Expiration Date Visits Requested Visits Authorized [id number] Pending Review Auto-Generat ed Referral 11/20/2022 11/20/2023 [...] MDM 60-74 MINUTES Jamie Yañez PA-C [address] [phone] Referral ID Status Reason Start Date Expiration Date Visits Requested Visits Authorized [id number] Pending Review PCP Requested Referral 11/20/2022 11/20/2023 [...] section and content) DATE CREATED AUTHOR 10/16/2017 [facility] DATE CREATED AUTHOR AUTHOR'S ORGANIZ ATION 10/17/2017 [facility] [place] [facility] DATE CREATED AUTHOR AUTHOR'S ORGANIZ ATION 04/14/2021 [facility] DATE CREATED AUTHOR AUTHOR'S ORGANIZ ATION 09/06/2022 [facility] DATE CREATED AUTHOR AUTHOR'S ORGANIZ ATION 11/21/2022 [facility] DATE CREATED AUTHOR AUTHOR'S ORGANIZ ATION 12/23/2022 [facility] DATE CREATED AUTHOR AUTHOR'S ORGANIZ ATION 04/01/2023 [facility] DATE CREATED AUTHOR AUTHOR'S ORGANIZ ATION 05/17/2023 [facility] Specialists [facility] Patient Care team informatio n (unrecognized section and content) Skiver Uppers Or Linings Relationship Specialty Start Date End Date Kala Conte PCP - General Family Medicine 06/18/17 Judson White [address] [place] [phone] Referring 08/28/22 Skiver Uppers Or Linings Relationship Specialty Start Date End Date Kala Conte PCP - General Family Medicine 06/18/17 Judson White [address] [place] [phone] Referring 08/28/22 Skiver Uppers Or Linings Relationship Specialty Start Date End Date Kala Conte PCP - General Family Medicine 06/18/17 Judson White [address] [place] [id number] Referring 08/28/22 Source Comments (unrecognize d section and content) In the event this informatio n is protected by the Federal Confidentiality of Alcohol and Drug Abuse Patient Records regulations: The Federal rules restrict any use of the information to criminally investigate or prosecute any alcohol or drug abuse patient.[facility] Company[facility] the event this information is protected by the Federal Confidentiality of Alcohol and Drug Abuse Patient Records regulations: The Federal rules restrict any use of the information to criminally investigate or prosecute any alcohol or drug abuse patient.[facility] CompanyIn the event this information is protected by the Federal Confidentiality of Alcohol and Drug Abuse Patient Records regulations: The Federal rules restrict any use of the information to criminally investigate or prosecute any alcohol or drug abuse patient.[facility] Reason for Visit (unrecogniz ed section and content) Reason Comments Knee Pain Reason Comments Radio Gen A21 Specialty Diagnoses / Procedures Referred By Contac t Referred To Contact XR IMAGING Diagnoses Chronic pain of both knees Procedures XR KNEE GENERAL 4V AP BOTH/PA BOTH/LAT/MERC BILATERAL RADIOLOGIC EXAM KNEE COMPLETE 4/MORE VIEWS Jamie Yañez PA-C [address] [address] Xr Imaging Referral ID Status Reason Start Date Expiration Date V isits Requested Visits Authorized [id number] Closed Auto-Generate d Referral 11/03/2022 12/03/2023 1 [...] BE BASED ON THE PRIMARY CLINICAL RECORDS. [facility] [employer] [facility]. provides no warranty or guarantee of the accuracy or completeness of information in this document.
== END 2023-05-29 14:01 | disposition home or self-care (01) ==
LOC: PM 14:00
PROVIDERS: Visit Provider Anesthesiology Pain Medicine
DX: M25.561 Pain in right knee (principal); M25.562 Pain in left knee
CPT/HCPCS: G0463

== ENCOUNTER 2023-08-14 21:00 | Outpatient (OUT) | payer MEDICARE, MEDICAID, SELFPAY | END 2023-08-14 21:01 | disposition home or self-care (01) | LOC: SLEEP 21:00 | PROVIDERS: PCP Internal Medicine; Visit Provider Internal Medicine | DX: G47.33 Obstructive sleep apnea (adult) (pediatric) (principal); G47.11 Idiopathic hypersomnia with long sleep time | CPT/HCPCS: 95811 ==

== ENCOUNTER 2023-09-25 13:57 | Outpatient (OUT) | payer MEDICARE, MEDICAID, SELFPAY ==
--- NOTE | 2023-09-25 13:57 | CONS_ITS ---
PAIN MANAGEMENT CONSULTATION CONSULTATION DATE: ??09/25/2023 TO:? [facility] HISTORY:? Patient returns today complaining of 9/10 pain in her knees bilaterally.? She described it being a constant, dull, aching pain and occasionally sharp pain.? Increases with any kind of weight bearing maneuvers.? She feels most comfortable in the semi-recumbent position.? She denies any change in bowel and bladder habits or new sensorimotor changes in the lower extremities.? She presents wearing a walking boot on the left lower extremity. MEDICATION:? Current medication includes Percocet 5 mg b.i.d., tizanidine 4 mg, half a pill in the morning, half a pill in the evening.? She reports the medications do improve her quality of life, level of functioning and at times her sleep pattern, and denies any side effects with the medication and no acceleration of her opioid medication was noted.? Her DIXIE on today?s visit was 60.? EXAMINATION:? Notable for patient having 3/5 strength involving her right anterior tibialis.? Straight leg raise is equivocally positive at approximately 90 degrees.? She has a depressed right Achilles reflex.? She has no signs consistent with myelopathy. IMPRESSION:? 1.? Our impression is patient with chronic pain secondary to new onset right L5 radicular process. 2.? Known osteoarthrosis of her knees bilaterally.? She currently is awaiting surgery for her knees bilaterally; however, she is in a weight management program at the current time, and when she reaches her target weight, she reports that she will consider bilateral total knee arthroplasties. PLAN:? We will, therefore, continue with medication management as we are, and will see the patient back in the office as needed. As part of providing excellent, safe, comprehensive care, the following was completed at our patient's visit: 1. A medication reconciliation and review to ensure accurate knowledge of current/active medications, including asking our patients to inform us about any zxxr-pxl-[id number] medications or herbal remedies/nutritional supplements/alternative remedies. 2. A review to specifically ensure our patients have had annual screening for: elevated body mass index (BMI, see intake chart for exact total), tobacco use, screening for depression, and screening for unhealthy alcohol use.? When screening is concerning, patients are provided with education and the specific recommendation to discuss the concerning health issue and treatment options with their primary care provider. MEGAN
== END 2023-09-25 13:58 | disposition home or self-care (01) ==
LOC: PM 13:57
PROVIDERS: Visit Provider Anesthesiology Pain Medicine
DX: M54.50 Low back pain, unspecified (principal); M17.0 Bilateral primary osteoarthritis of knee
CPT/HCPCS: G0463

== ENCOUNTER 2024-01-08 13:57 | Outpatient (OUT) | payer MEDICARE, MEDICAID, SELFPAY ==
--- NOTE | 2024-01-08 | CONS_ITS ---
CONSULTATION DATE: 01/08/2024 TO: [facility] HISTORY: She returns today complaining of 8/10 pain in her right lower extremity, right hip area, described as a deep aching pain with a sharp, shooting component. Increased with activities such as standing, walking and performing transitioning maneuvers. She feels most comfortable in the semi- recumbent position CURRENT MEDICATION: Includes Percocet 5 mg b.i.d., tizanidine 4 mg, half a pill b.i.d. and Ambien. EXAMINATION: Notable for patient having 2/5 strength of her right psoas muscle. She had 3/5 strength for her quadriceps on the right side and depressed right patella reflex. She had hypoesthesia along the right L1 dermatome. 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 RECOMMENDATIONS: I recommend she undergo a thoracic and lumbar MRI. She has a history of T10, T11 spinal stenosis, status post thoracic decompression. Concern at this point is if she has epidural fibrosis contributing to her right L1 process. Will also place her on Zonegran 50 mg at h.s. and proceed with an L1, L2 epidural steroid injection under fluoroscopic guidance. As part of providing excellent, safe, comprehensive care, the following was completed at our patient's visit: 1. A medication reconciliation and review to ensure accurate knowledge of current/active medications, including asking our patients to inform us about any xbic-tqs-kzovvui medications or herbal remedies/nutritional supplements/alternative remedies. 2. A review to specifically ensure our patients have had annual screening for: elevated body mass index (BMI, see intake chart for exact total), tobacco use, screening for depression, and screening for unhealthy alcohol use. When screening is concerning, patients are provided with education and the specific recommendation to discuss the concerning health issue and treatment options with their primary care provider. MEGAN
--- OUTSIDE RECORDS SUMMARY | 2024-01-08 14:12 | XMS_ITS | CCD ---
Author Organization [facility] ion Partnership [facility] Care Team Providers Care Box Toe Stitcher Name Role Phone ELGAFY, HOMERO K Unavailable [...] Admitting Unavailable PETERS ., [place] Consulting Unavailable [facility] Primary [facility] Unava ilable [facility] Consulting Unava ilable LUKE ., DR CADENCE Hsu Attending Unavailable [facility] Unava ilable PETERS ., [place] Consulting Unavailable LUKE ., DR CADENCE Hsu Admitting Unavailable [facility] Unava ilable EDITH, DR SOTOMAYOR Attending Unavailable EDITH, DR SOTOMAYOR Admitting Unavailable PAY ., DR GRIMM Consulting Unavailable EDITH, DR SOTOMAYOR Consulting Unavailable TROTTI, GIROLAMO Consulting Unavailable [facility] Unava ilable MARKER ., DR MENDOZA Attending Unavailable MARKER ., DR MENDOZA Admitting Unavailable MARKER ., DR MENDOZA Consulting Unavailable RISHABH MORENO Consulting Unavailable [facility] Unava ilable PETERS ., [place] Consulting Unavailable LUKE ., DR CADENCE Hsu Admitting Unavailable LUKE ., DR CADENCE Hsu Attending Unavailable [facility] Unava ilable PETERS ., [place] Consulting Unavailable LUKE ., DR CADENCE Hsu Attending Unavailable LUKE ., DR CADENCE Hsu Admitting Unavailable LUKE ., DR CADENCE Hsu Consulting Unavailable [facility] Unava ilable LUKE ., DR CADENCE Hsu Attending Unavailable LUKE ., DR CADENCE Hsu Admitting Unavailable [facility] Unava ilable LORRAINE .[place] Consulting Unavailable LUKE ., DR CADENCE Hsu Attending Unavailable LUKE ., DR CADENCE Hsu Admitting Unavailable LUKE ., DR CADENCE Hsu Consulting Unavailable LUKE ., DR CADENCE Hsu Attending Unavailable [facility] Unava ilable LUKE ., DR CADENCE Hsu Admitting Unavailable [facility] Unava ilable LAKSHMIPATHY ., NARENDRANATH Admitting Emmanuelle vailable LAKSHMIPATHY ., NARTRELLATH Attending Emmanuelle vailable [place], Kala Santo Primary Care Provider Judson White Unavailable Unavailable CONTE, KALA SANTO Primary Care Unavailable GISSEL YAÑEZ Attending Unavailabl e CONTE, KALA SANTO Primary Care Unavailable GISSEL YAÑEZ Referring Unavailabl e Adamowicz II, Anne J Admitting Unavaila ble Adamowicz II, Anne J Attending Unavaila ble Conte, Kala Primary Care Unavailable Conte, Kala Referring Unavailable Timmis, Gal H Referring Unavailable Timmis, Gal H Attending Unavailable Timmis, Gal H Admitting Unavailable TIMMIS, GAL H Attending Unavailable TIMMIS, GAL H Attending Unavailable Conte Kala CASTELLON Primary Care Provider [phone] Kala Conte MD Primary Care Provider DOROTHEA CLAY Referring Unavailable CONTE, KALA L Primary Care Unavailable CONTE, KALA L Primary Care Unavailable NIYADOROTHEA Coffey Referring Unavailable CONTE, KALA L Referring Unavailable CONTE, KALA L Primary Care Unavailable CONTE, KALA L Primary Care Unavailable YULISSA, CATHRYN Attending Unavailable DUENAS, CATHRYN Attending Unavailable CATHRYN DUENAS Referring Unavailable CONTE, KALA L Primary Care Unavailable CONTE, KALA L Referring Unavailable CONTE, KALA L Primary Care Unavailable CONTE, KALA L Referring Unavailable CONTE, KALA L Primary Care Unavailable Allergies Allergy Classification Reported Allergen(s) Allergy Type Date of Onset Reaction(s) Facility (1 source) penicillin Drug Allergy 6 AOF [facility] (4 sources) prochlorperazine; Translations: [Compazine] Drug Allergy 4 AOF [facility] (12 sources) Penicillins; Translations: [penicillins] Drug allergy 4 Eruption of skin (disorder), Hives, Rash [facility] (6 sources) Prochlorperazine; Translations: [prochlorperazine] Drug Allergy 4 Unknown (qualifier value), Eruption of skin (disorder), Anxiety [facility] (5 sources) Prochlorperazine; Translations: [PROCHLORPERAZINE EDISYLATE] Drug Allergy 4 Mental Status Change [facility] (1 source) Prochlorperazine Drug Allergy 2 [facility] Medications Current Medications Medication Drug Class(es) Dates Sig (Normalized) Sig (Original) acetaminophen 325 mg / oxyCODONE hydrochloride 5 mg oral tablet (7 sources) Opioid Agonist Start: 04-11-2017 End: 01-20-2021 take 1 tablet by mouth twice daily Percocet 5 mg-325 mg oral tablet 1 tab(s), Oral, BID, Refill(s) 0 Start Date: 01/25/21 Status: Ordered take 1 tablet by shakir th every four hours as needed oxyCODONE-acetaminophen (Percocet) 5-325 MG tablet Take 1 tablet by mouth every 4 (four) hours if needed 0 Active take 1 tablet by shakir th every six hours as needed oxyCODONE-acetaminophen 5-325 mg tablet Take 1 tablet by mouth every 6 hours as needed. 0 Active Comment on above: Take 1 tablet by shakir th every 6 hours as needed. sensor 200 actuat albuterol 0.09 mg/actuat dry powder inhaler (3 sources) beta2-Adrenergic Agonist Start: 01-20-2021 Albuterol Sulfate Active 2 INH INHALATION Four times daily January 20, 2021 12:00am albuterol (2.5 M G/3ML) 0.083% nebulizer solution Take 2.5 mg by nebulization every 6 (six) hours if needed 0 Active take 2 puff(s) by in halation every four hours albuterol HFA 90 mcg/act inhaler Inhale 2 puffs every 4 (four) hours if needed 0 Active amLODIPine 2.5 mg oral tablet (1 source) Dihydropyridine Calcium Channel Margot Start: 01-03-2023 take 1 tablet by mouth in the morning amLODIPine (Norvasc) 2.5 MG tablet Take 2.5 mg by mouth in the morning. 0 01/03/2023 Active 1 ml benralizumab 30 mg/ml prefilled syringe (1 source) Interleukin-5 Receptor alpha-directed Cytolytic Antibody Start: 05-08-2023 benralizumab (Fasenra) 30 MG/ML injection Inject 30 mg under the skin every 28 (twenty-eight) days 0 05/08/2023 Active 12 hr buPROPion hydrochloride 150 mg extended release oral tablet (3 sources) Aminoketone Start: 01-25-2021 take 1 tablet by mouth twice daily Wellbutrin SR 150 mg Tab-ER 150 mg = 1 tab(s), Oral, BID, Refills(s) 0 Start Date: 01/25/21 Status: Ordered Start: 01-20-2021 take 1 tablet by shakir th twice daily Bupropion Hcl (Wellbutrin Xl) 150 mg Tablet Extended Release 24 Hr Active 150 MG PO Twice daily January 20, 2021 12:00am take 1 tablet by shakir th once daily buPROPion SR (Wellbutrin SR) 150 MG 12 hr tablet Take 150 mg by mouth 1 (one) time each day at the same time 0 Active calcium carbonate 1250 mg oral tablet (1 [...] PO Twice daily January 20, 2021 12:00am cetirizine hydrochloride 10 mg oral tablet (1 source) Histamine-1 Receptor Antagonist take 1 tablet by mouth in the morning cetirizine (ZyrTEC) 10 MG tablet Take 10 mg by mouth in the morning. 0 Active ciprofloxacin 750 mg oral tablet (1 source) Quinolone Antimicrobial Start: 05-16-2023 End: 05-30-2023 take 1 tablet by mouth in the morning ciprofloxacin (Cipro) 750 MG tablet Indications: Perichondritis of auricle, left Take 1 tablet (750 mg) by mouth in the morning and 1 tablet (750 mg) before bedtime. Do all this for 10 days. 20 tablet 0 05/16/2023 05/30/2023 Discontinued (Therapy completed) citalopram 10 mg oral tablet (4 sources) Serotonin Reuptake Inhibitor take 1 tablet by mouth in the morning citalopram (CeleXA) 10 MG tablet Take 10 mg by mouth in the morning. 0 Active Comment on above: Take 10 mg by mouth once daily. cyclobenzaprine hydrochloride 10 mg oral tablet (1 source) Muscle Relaxant take 1 tablet by mouth in the morning, then take 1 tablet by mouth in the evening, then take 1 tablet by mouth at bedtime cyclobenzaprine (Flexeril) 10 MG tablet Take 1 tablet by mouth in the morning and 1 tablet in the evening and 1 tablet before bedtime. 0 Active Cymbalta 30 mg Cap-DR (1 source) Start: 01-25-2021 take 1 capsule by mouth once daily Cymbalta 30 mg Cap-DR 30 mg, Oral, Daily, Refills(s) 0 Start Date: 01/25/21 Status: Ordered DULoxetine 30 mg delayed release oral capsule (2 sources) Serotonin and Norepinephrine Reuptake Inhibitor Start: 01-20-2021 [...] thereafter, # 42.5 gm, Refills(s) 11, Pharmacy: [id number], 163, cm, 04/14/21 10:37:00 EST, Height/Length Dosing, 148, kg, 04/14/21 10:37:00... Start Date: 04/14/21 Status: Ordered 120 actuat fluticasone propionate 0.22 mg/actuat metered dose inhaler (2 sources) Corticosteroid Start: 01-25-2021 take 1 puff(s) by inhalation twice daily Flovent HFA 220 Aerosol = 1 puff(s), Inhalation, BID, Refills(s) 0 Start Date: 01/25/21 Status: Ordered take 1 spray(s) nasal route once daily fluticasone (Flonase) 50 MCG/ACT nasal spray Administer 1 spray into each nostril 1 (one) time each day at the same time 0 Active 120 actuat fluticasone propionate 0.23 mg/actuat / salmeterol 0.021 mg/actuat metered dose inhaler (1 source) Corticosteroid, beta2-Adrenergic Agonist Start: 04-22-2023 take 2 puff(s) by inhalation in the morning Advair HFA 230-21 MCG/ACT inhaler Inhale 2 puffs in the morning and 2 puffs before bedtime. 0 04/22/2023 Active fluticasone 0.05 mg/inh Nasal [place] (1 source) Start: 04-14-2021 fluticasone 0.05 mg/inh Nasal [place] Refill(s) 0 Start Date: 04/14/21 Status: Ordered ibuprofen 800 mg oral tablet (5 sources) Nonsteroidal Anti-inflammatory Drug Start: 04-11-2017 Ibuprofen Active 800 MG PO As Directed April 11, 2017 1:00am Comment on above: Take 800 mg by mouth every 6 hours as needed. montelukast 10 mg oral tablet (1 source) Leukotriene Receptor Antagonist take 1 tablet by mouth once daily Singulair 10 MG tablet Take 10 mg by mouth 1 (one) time each day at the same time 0 Active Multivitamin (Multiple Vitamin) Tablet (1 source) Start: [...] 12:00am zolpidem tartrate 10 mg oral tablet (6 sources) gamma-Aminobutyric Acid-ergic Agonist Start: 04-11-2017 take [...] above: Take 1 tablet by shakir th. dicyclomine hydrochloride 20 mg oral tablet (3 sources) Anticholinergic Start: 05-30-2017 take 1 tablet by mouth every six hours dicyclomine (BENTYL) 20 mg tablet Take 20 mg by mouth every 6 hours. 0 05/30/2017 Active Comment on above: Take 20 mg by mouth every 6 hours. furosemide 40 mg oral tablet (2 sources) Loop Diuretic Start: 04-11-2017 End: 01-20-2021 take 40 mg by mouth twice daily Furosemide Discontinued 40 MG PO Twice daily April 11, 2017 1:00am January 20, 2021 10:59am 10 ml lidocaine hydrochloride 10 mg/ml injection (2 sources) Antiarrhythmic, Amide Local Anesthetic Start: 11-20-2022 End: 11-20-2022 lidocaine (PF) 10 mg/mL (1 %) 4 mL injection (XYLOCAINE) spironolactone 25 mg oral tablet (6 sources) Aldosterone Antagonist Start: 07-28-2017 take 1 [...] [CHRONIC KIDNEY DISEASE UNSPECIFIED] Onset: 09-06-2022 Chronic Chronic obstructive pulmonary disease and bronchiectasis (1 source) Chronic obstructive lung disease; Translations: [Chronic obstructive pulmonary disease, unspecified] Onset: 01-02-2020 05-16-2023 Chronic Deficiency and other anemia (2 sources) Anemia; Translations: [Anemia, unspecified] 01-25-2021 Episodic Deficiency and other anemia (1 source) Iron deficiency anemia; Translations: [Iron deficiency anemia, unspecified] 03-25-2021 Episodic Diabetes mellitus with complications (1 source) Type 2 diabetes mellitus with diabetic chronic kidney disease; Translations: [TYPE 2 DM W/DIABETIC CKD] Onset: 09-06-2022 Chronic Essential hypertension (2 sources) Hypertensive disorder; Translations: [Essential hypertension] Onset: 04-29-2020 01-25-2021 Chronic Genitourinary symptoms and ill-defined conditions (2 sources) Genuine stress incontinence; Translations: [Intermittent urinary incontinence] 04-14-2021 Chronic Genitourinary symptoms and ill-defined conditions (1 source) Proteinuria 04-14-2021 Episodic Headache; including migraine (1 source) Migraine 01-25-2021 Chronic Mood disorders (2 sources) Depressive disorder; Translations: [Major depressive disorder] 01-25-2021 Chronic Osteoarthritis (8 sources) Arthritis; Translations: [Bilateral primary osteoarthritis of knee] Onset: 01-23-2022 01-25-2021 Chronic Other aftercare (1 source) Other care home (current) drug therapy; Translations: [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 THERAPY] Onset: 09-06-2022 Episodic Other ear and sense organ disorders (2 sources) Perichondritis of pinna; Translations: [Unspecified perichondritis of left external ear] Onset: 05-16-2023 05-30-2023 Episodic Other gastrointestinal disorders (1 source) Irritable bowel syndrome without diarrhea; Translations: [IRRITABLE BOWEL SYND W/O DIARRHEA] Onset: 09-06-2022 Chronic Other gastrointestinal disorders (1 source) Altered bowel function; Translations: [Other specified symptoms and signs involving the digestive system and abdomen] 01-24-2021 Episodic Other injuries and conditions due to external causes (1 source) Unspecified injury of left Achilles tendon, initial encounter; Translations: [Unspecified injury of left Achilles tendon, initial encounter] Onset: 08-30-2023 Episodic Other lower respiratory disease (1 source) [...] IN LEFT KNEE] Onset: 10-21-2021 Episodic Other non-traumatic joint disorders (1 source) Acute ankle pain; Translations: [Pain in left ankle and joints of left foot] 09-27-2023 Episodic Other non-traumatic joint disorders (1 source) Pain in left ankle and joints of left foot; Translations: [Pain in left ankle and joints of left foot] Onset: 09-27-2023 Episodic Other nutritional; endocrine; and metabolic disorders [...] due to excess calories] 11-20-2022 Chronic Other screening for suspected conditions (not mental disorders or infectious disease) (3 sources) Myocardial perfusion - finding; Translations: [Abnormal result of other cardiovascular function study] Onset: 04-29-2020 05-16-2023 Episodic Other upper respiratory disease (2 sources) Allergic rhinitis; Translations: [Allergic rhinitis, unspecified] Onset: 05-16-2023 01-25-2021 Chronic Other upper respiratory disease (1 source) Nasal congestion; Translations: [Nasal congestion] Onset: 05-16-2023 05-16-2023 Episodic Residual codes; unclassified (1 source) Insomnia 01-25-2021 Episodic Residual codes; unclassified (1 source) Peripheral edema 01-25-2021 Episodic Residual codes; unclassified (1 source) Other specified postprocedural states; Translations: [OTH SPECIFIED POSTPROCEDURAL STATES] Onset: 06-26-2022 Episodic Spondylosis; intervertebral disc disorders; other back problems (9 sources) Spondylosis without myelopathy or radiculopathy, lumbar region; Translations: [Other intervertebral disc degeneration, lumbar region] Onset: 10-25-2016 01-25-2021 Chronic Spondylosis; intervertebral disc disorders; other back problems (8 sources) Muscle spasm of back; Translations: [Intervertebral disc disorders with radiculopathy, lumbar region] Onset: 11-27-2016 Episodic Unclassified (2 sources) Unknown / UNK(Unknown) Onset: [...] KIDNEY DISEASE STG 3 UNSP] Onset: 04-20-2022 Unclassified (2 sources) Ankle Injury Onset: 08-30-2023 Urinary tract infections (1 source) Recurrent urinary tract infection 04-14-2021 Episodic Past or Other Problems Problem Classification Problem Date Documented Da te Episodic/Chronic Benign neoplasm of uterus (4 sources) Uterine leiomyoma; Translations: [Leiomyoma of uterus, unspecified] Onset: 09-01-2013 09-01-2013 Episodic Deficiency and other anemia (1 source) Anemia, unspecified; Translations: [Anemia, unspecified] Onset: 10-07-2021 Episodic Deficiency and other anemia (1 source) Iron deficiency anemia, unspecified; Translations: [Iron deficiency anemia, unspecified] Onset: 10-07-2021 Episodic Other connective tissue disease (1 source) Arthrodesis status; Translations: [ARTHRODESIS STATUS] Onset: 10-25-2016 Episodic Other lower respiratory disease (1 source) Dyspnea; Translations: [Shortness of breath] Onset: 04-29-2020 05-16-2023 Episodic Other nutritional; endocrine; and metabolic disorders (1 source) Body mass index 40+ - severely obese; Translations: [Morbid (severe) obesity due to excess calories] Onset: 01-02-2020 Resolved: 05-16-2023 05-16-2023 Chronic Other upper respiratory infections (1 source) Acute upper respiratory infection, unspecified; Translations: [ACUTE UP RESPIRATORY INFECTION UNS] Onset: 04-20-2022 Episodic Residual codes; unclassified (1 source) Localized edema; Translations: [Localized edema] Onset: 07-12-2023 Episodic Unclassified (1 source) COUGH, UNSPECIFIED; Translations: [COUGH, UNSPECIFIED] Onset: 09-04-2022 Results Test Name Value Interpretation Reference Range Facility MAMM SCREENING BILATERAL W 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 Computer aided detection was utilized. FINDINGS: There are scattered areas of fibroglandular density. There are no suspicious masses, calcifications, or areas of architectural distortion. IMPRESSION: No mammographic evidence of malignancy. BI-RADS: BI-RADS 1 - Negative Recommendation: Routine screening mammogram in 1 year. Finalized by Goyo Duran MD on 11/06/2023 8:52 AM 1 b MAMM 1 YR Normal [facility] MR Ankle - left WO contrasto n 09-27-2023 1. Evidence of remot e partial tearing of the ATFL with associated avulsion fracture fragment. 2. Evidence of prior injury to the medial deltoid ligament complex. 3. Moderate to severe distal Achilles tendinosis with superimposed intermediate-grade partial tear of the distal Achilles tendon. Severe distal Achilles enthesopathy. Reactive marrow edema at the posterior calcaneal tuberosity. Ricky's deformity. 4. Mild plantar calcaneal spur. No plantar fasciitis. 5. Degenerative subcortical cystic changes as detailed above. Mild degenerative changes of the midfoot and TMT joints. 6. Mild to moderate edema in the subcutaneous fat about the ankle and foot. 7. Remote healed fracture deformity of the proximal 5th metatarsal. [facility] RIS CONSOLIDATED EXAMINATION: MRI OF THE LEFT ANKLE WITHOUT CONTRAST, 09/27/2023 11:07 am TECHNIQUE: Multiplanar multisequence MRI of the left ankle was performed without the administration of intravenous contrast. COMPARISON: None. HISTORY: ORDERING SYSTEM PROVIDED HISTORY: Acute left ankle pain 58-year-old female with acute left ankle pain FINDINGS: SYNDESMOTIC LIGAMENTS: The anterior-inferior tibiofibular ligament, interosseous membrane and posterior-inferior tibiofibular ligaments are normal. LATERAL COLLATERAL LIGAMENT COMPLEX: Evidence of remote partial tearing of the anterior talofibular ligament with associated avulsion fracture in the region of the ATFL. Posterior talofibular ligament and calcaneofibular ligament appear continuous/intact. DELTOID LIGAMENT COMPLEX: Loss of the normal striations of the medial deltoid ligament suggesting prior injury to the medial deltoid ligament complex without complete tear. SINUS TARSI AND SPRING LIGAMENT: Preservation of the sinus tarsi fat. MEDIAL TENDONS: The posterior tibialis, flexor digitorum longus and flexor hallucis longus tendons are intact. LATERAL TENDONS: The peroneus longus and brevis tendons are intact. ANTERIOR TENDONS: The tibialis anterior, extensor hallucis longus and extensor digitorum longus tendons are normal in position, morphology and signal. ACHILLES TENDON: Moderate to severe distal Achilles tendinosis. Intermediate-grade partial tear of the distal Achilles tendon from the calcaneal tuberosity with retraction measuring up to 5 mm on image 18, series 3. Reactive marrow edema at the posterior calcaneal tuberosity. Severe distal Achilles enthesopathy. PLANTAR FASCIA: Mild plantar calcaneal spur. No plantar fasciitis or plantar fascial tear. TARSAL TUNNEL: There are no obstructing lesions within the tarsal tunnel. BONE MARROW: Subcortical cystic changes at the medial and lateral talar dome. No large osteochondral lesion or defect at the talar dome. Osseous alignment is normal. No acute fracture or dislocation. No marginal erosions. Subcortical cystic changes at the midfoot and TMT joints. Bone marrow signal intensity otherwise grossly unremarkable. No tarsal coalition. Remote healed fracture deformity of the proximal 5th metatarsal. Ricky's deformity. JOINT SPACES: No sizable tibiotalar or subtalar effusion. No talonavicular effusion. Mild degenerative changes of the midfoot and TMT joints. SOFT TISSUES: Mild to moderate edema in the subcutaneous fat about the ankle and foot. No organized fluid collection. [facility] RIS Scottie Rice MD - 09/27/2023 EXAMINATION: MRI OF THE LEFT ANKLE WITHOUT CONTRAST, 09/27/2023 11:07 am TECHNIQUE: Multiplanar multisequence MRI of the left ankle was performed without the administration of intravenous contrast. COMPARISON: None. HISTORY: ORDERING SYSTEM PROVIDED HISTORY: Acute left ankle pain 58-year-old female with acute left ankle pain FINDINGS: SYNDESMOTIC LIGAMENTS: The anterior-inferior tibiofibular ligament, interosseous membrane and posterior-inferior tibiofibular ligaments are normal. LATERAL COLLATERAL LIGAMENT COMPLEX: Evidence of remote partial tearing of the anterior talofibular ligament with associated avulsion fracture in the region of the ATFL. Posterior talofibular ligament and calcaneofibular ligament appear continuous/intact. DELTOID LIGAMENT COMPLEX: Loss of the normal striations of the medial deltoid ligament suggesting prior injury to the medial deltoid ligament complex without complete tear. SINUS TARSI AND SPRING LIGAMENT: Preservation of the sinus tarsi fat. MEDIAL TENDONS: The posterior tibialis, flexor digitorum longus and flexor hallucis longus tendons are intact. LATERAL TENDONS: The peroneus longus and brevis tendons are intact. ANTERIOR TENDONS: The tibialis anterior, extensor hallucis longus and extensor digitorum longus tendons are normal in position, morphology and signal. ACHILLES TENDON: Moderate to severe distal Achilles tendinosis. Intermediate-grade partial tear of the distal Achilles tendon from the calcaneal tuberosity with retraction measuring up to 5 mm on image 18, series 3. Reactive marrow edema at the posterior calcaneal tuberosity. Severe distal Achilles enthesopathy. PLANTAR FASCIA: Mild plantar calcaneal spur. No plantar fasciitis or plantar fascial tear. TARSAL TUNNEL: There are no obstructing lesions within the tarsal tunnel. BONE MARROW: Subcortical cystic changes at the medial and lateral talar dome. No large osteochondral lesion or defect at the talar dome. Osseous alignment is normal. No acute fracture or dislocation. No marginal erosions. Subcortical cystic changes at the midfoot and TMT joints. Bone marrow signal intensity otherwise grossly unremarkable. No tarsal coalition. Remote healed fracture deformity of the proximal 5th metatarsal. Ricky's deformity. JOINT SPACES: No sizable tibiotalar or subtalar effusion. No talonavicular effusion. Mild degenerative changes of the midfoot and TMT joints. SOFT TISSUES: Mild to moderate edema in the subcutaneous fat about the ankle and foot. No organized fluid collection. IMPRESSION: 1. Evidence of remote partial tearing of the ATFL with associated avulsion fracture fragment. 2. Evidence of prior injury to the medial deltoid ligament complex. 3. Moderate to severe distal Achilles tendinosis with superimposed intermediate-grade partial tear of the distal Achilles tendon. Severe distal Achilles enthesopathy. Reactive marrow edema at the posterior calcaneal tuberosity. Ricky's deformity. 4. Mild plantar calcaneal spur. No plantar fasciitis. 5. Degenerative subcortical cystic changes as detailed above. Mild degenerative changes of the midfoot and TMT joints. 6. Mild to moderate edema in the subcutaneous fat about the ankle and foot. 7. Remote healed fracture deformity of the proximal 5th metatarsal. [facility] Radiology Study observation (narrative) [facility] MR Ankle - left WO contrastO rdered By: Scottie Whitmore on 09-27-2023 [facility] Work Phone: MRI ANKLE LEFT WO CONTRASTon 09-27-2023 MRI ANKLE LEFT WO CONTRAST EXAMINATION: MRI OF THE LEFT ANKLE WITHOUT CONTRAST, 09/27/2023 11:07 am TECHNIQUE: Multiplanar multisequence MRI of the left ankle was performed without the administration of intravenous contrast. COMPARISON: None. HISTORY: ORDERING SYSTEM PROVIDED HISTORY: Acute left ankle pain 58-year-old female with acute left ankle pain FINDINGS: SYNDESMOTIC LIGAMENTS: The anterior-inferior tibiofibular ligament, interosseous membrane and posterior-inferior tibiofibular ligaments are normal. LATERAL COLLATERAL LIGAMENT COMPLEX: Evidence of remote partial tearing of the anterior talofibular ligament with associated avulsion fracture in the region of the ATFL. Posterior talofibular ligament and calcaneofibular ligament appear continuous/intact. DELTOID LIGAMENT COMPLEX: Loss of the normal striations of the medial deltoid ligament suggesting prior injury to the medial deltoid ligament complex without complete tear. SINUS TARSI AND SPRING LIGAMENT: Preservation of the sinus tarsi fat. MEDIAL TENDONS: The posterior tibialis, flexor digitorum longus and flexor hallucis longus tendons are intact. LATERAL TENDONS: The peroneus longus and brevis tendons are intact. ANTERIOR TENDONS: The tibialis anterior, extensor hallucis longus and extensor digitorum longus tendons are normal in position, morphology and signal. ACHILLES TENDON: Moderate to severe distal Achilles tendinosis. Intermediate-grade partial tear of the distal Achilles tendon from the calcaneal tuberosity with retraction measuring up to 5 mm on image 18, series 3. Reactive marrow edema at the posterior calcaneal tuberosity. Severe distal Achilles enthesopathy. PLANTAR FASCIA: Mild plantar calcaneal spur. No plantar fasciitis or plantar fascial tear. TARSAL TUNNEL: There are no obstructing lesions within the tarsal tunnel. BONE MARROW: Subcortical cystic changes at the medial and lateral talar dome. No large osteochondral lesion or defect at the talar dome. Osseous alignment is normal. No acute fracture or dislocation. No marginal erosions. Subcortical cystic changes at the midfoot and TMT joints. Bone marrow signal intensity otherwise grossly unremarkable. No tarsal coalition. Remote healed fracture deformity of the proximal 5th metatarsal. Ricky's deformity. JOINT SPACES: No sizable tibiotalar or subtalar effusion. No talonavicular effusion. Mild degenerative changes of the midfoot and TMT joints. SOFT TISSUES: Mild to moderate edema in the subcutaneous fat about the ankle and foot. No organized fluid collection. IMPRESSION: 1. Evidence of remote partial tearing of the ATFL with associated avulsion fracture fragment. 2. Evidence of prior injury to the medial deltoid ligament complex. 3. Moderate to severe distal Achilles tendinosis with superimposed intermediate-grade partial tear of the distal Achilles tendon. Severe distal Achilles enthesopathy. Reactive marrow edema at the posterior calcaneal tuberosity. Ricky's deformity. 4. Mild plantar calcaneal spur. No plantar fasciitis. 5. Degenerative subcortical cystic changes as detailed above. Mild degenerative changes of the midfoot and TMT joints. 6. Mild to moderate edema in the subcutaneous fat about the ankle and foot. 7. Remote healed fracture deformity of the proximal 5th metatarsal. Interpreted by: Scottie Whitmore MD Signed by: Scottie Whitmore MD 09/27/23 Final result Normal [facility] XR ANKLE LT MIN 3 VWSon 05-0 XR ANKLE LT MIN 3 VWS XR ANKLE LT MIN 3 VWS LEFT ANKLE 3 VIEWS COMPARISON: 09/28/2014 HISTORY: Left ankle injury, pain near lateral malleolus. Impression: 1. Diffuse soft tissue swelling the visualized lower leg and ankle, nonspecific. 2. No evidence for an acute fracture or dislocation. Ankle mortise is intact. 3. Posterior and plantar calcaneal enthesophytes. Possible thickened distal Achilles tendon not well characterized on radiographs. Finalized by Salvatore Baxter MD on 08/30/2023 10:54 PM Normal [facility] Physician Referralon 17-2 023 Physician Referral [id number] Normal [facility] CNOVon 11-20-2022 CNOV Office Visit (ORTHMN ) FREDI MCKEE ([id number]) 1965 F [place] Date Time Provider Department 11/20/22 10:00 AM GISSEL YAÑEZ ORTHANTONIO During your visit today, we recorded the following information about you: Weight Height 149.1 kg 1.626 m Gissel Yañez PA-C 11/20/2022 4:50 PM Signed CONSULT [...] exercise. 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 We discuss our Get Ready program. 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 Normal [facility] XR KNEE 4V AP/PA/LAT/PINA Chicas 11-20-2022 XR KNEE 4V AP/PA/LAT/MERCH ARON * [...] 4V AP/PA/LAT/MERCH ARON COMPARISON: None RESULT: Marked fhbx-hg-[id number] medial compartment narrowing bilaterally with genu varus deformities. Tricompartmental osteophytes bilaterally. No fractures. No joint effusions. 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 No other significant abnormality. --- IMPRESSION: MARKED DEGENERATIVE CHANGES IN THE MEDIAL COMPARTMENTS BILATERALLY Hair Cutter: LENNY Transcribe Date/Time: Nov 20 2022 8:42A Dictated by : ERASMO VALENTE MD This examination was interpreted and the report reviewed and electronically signed by: ERASMO VALENTE MD on Nov 20 2022 8:43AM EST [id number] N Normal [facility] XR KNEE GENERAL 4V AP BOTH/P A BOTH/LAT/MERC BILATERALon 11-20-2022 [facility] [place] [facility] BNPon 09-05-2022 Natriuretic peptide B (Bld) [Mass/Vol] 29.0 pg/mL Normal <=900.0 [facility] Comment on above: Performed By: #### H STROPN, BNP, CMP ####[facility] [address] [place], [place] [address]PgDr. Merlene Carr CBC AUTO DIFFon 09-05-2022 BASO # 0.1 103/ul Normal 0.0-0.1 [facility] Comment on above: Performed By: #### C BC #### [facility] [address] [place], [place] [address] Dr. Merlene Carr Basophils/100 WBC (Bld) 0.5 % Normal 0.2-2.0 [facility] Comment on above: Performed By: #### C BC #### [facility] [address] [place] [address] Dr. Merlene Carr EO # 0.6 103/ul Normal 0.0-0.7 [facility] Comment on above: Performed By: #### C BC #### [facility] [address] [place] [address] Dr. Merlene Carr Eosinophils/100 WBC (Bld) 4.9 % Normal 0.9-7.0 [facility] Comment on above: Performed By: #### C BC #### [facility] [address] [place] [address] Dr. Merlene Carr Erythrocyte distribution width (RBC) [Ratio] 14.0 % Normal 11.0-15.0 [facility] Comment on above: Performed By: #### C BC #### [facility] [address] [place] [address] Dr. Merlene Carr Hematocrit (Bld) [Volume fraction] 41.4 % Normal 36.0-48.0 [facility] Comment on above: Performed By: #### C BC #### [facility] [address] [place] [address] Dr. Merlene Carr Hemoglobin (Bld) [Mass/Vol] 13.0 g/dL Normal 12.0-16.0 [facility] Comment on above: Performed By: #### C BC #### [facility] [address] [place] [address] Dr. Merlene Carr IG # 0.05 10e3/ul Critically high 0.00-0.03 [facility] Comment on above: Performed By: #### C BC #### [facility] [address] [place] [address] Dr. Merlene Carr IG % 0.4 % Normal 0.0-0.5 [facility] Comment on above: Performed By: #### C BC #### [facility] [address] [place] [address] Dr. Merlene Carr LYMPH # 3.2 103/ul Normal 1.2-3.8 [facility] Comment on above: Performed By: #### C BC #### [facility] [address] [place] [address] Dr. Merlene Carr Lymphocytes/100 WBC (Bld) 27.2 % Normal 20.5-60.0 [facility] Comment on above: Performed By: #### C BC #### [facility] [address] [place] [address] Dr. Merlene Carr MANUAL DIFF REQ NO Normal [facility] Comment on above: Performed By: #### C BC #### [facility] [address] [place] [address] Dr. Merlene Carr MCH (RBC) [Entitic mass] 26.7 pg Normal 26.7-34.0 [facility] Comment on above: Performed By: #### C BC #### [facility] [address] [place] [address] Dr. Merlene Carr MCHC (RBC) [Mass/Vol] 31.4 g/dL Normal 29.9-35.2 [facility] Comment on above: Performed By: #### C BC #### [facility] [address] [place] [address] Dr. Merlene Carr MCV (RBC) [Entitic vol] 85.0 fL Normal 81.0-99.0 [facility] Comment on above: Performed By: #### C BC #### [facility] [address] [place] [address] Dr. Merlene Carr MONO # 1.0 103/ul Critically high 0.3-0.8 [facility] Comment on above: Performed By: #### C BC #### [facility] [address] [place] [address] Dr. Merlene Carr Monocytes/100 WBC (Bld) 8.8 % Normal 1.7-12.0 [facility] Comment on above: Performed By: #### C BC #### [facility] [address] [place] [address] Dr. Merlene Carr NEUT # 6.9 103/ul Critically high 1.4-6.5 [facility] Comment on above: Performed By: #### C BC #### [facility] [address] [place] [address] [address] Merlene Carr Neutrophils/100 WBC (Bld) 58.2 % Normal 43.0-75.0 [facility] Comment on above: Performed By: #### C BC #### [facility] [address] [place] [address] [address] Merlene Carr Platelet mean volume (Bld) [Entitic vol] 10.2 fL Normal 9.5-13.5 [facility] Comment on above: Performed By: #### C BC #### [facility] [address] [place] [address] [address] Merlene Carr PLT 392 103/ul Normal 150-450 [facility] Comment on above: Performed By: #### C BC #### [facility] [address] [place] [address] [address] Merlene Carr RBC 4.87 106/ul Normal 4.20-5.40 [facility] Comment on above: Performed By: #### C BC #### [facility] [address] [place] [address] [address] Merlene Carr WBC 11.8 103/ul Critically high 4.0-11.0 [facility] Comment on above: Performed By: #### C BC #### [facility] [address] [place] [address] [address] Merlene Carr CULTURE SPUTUMon 09-05-2022 CULTURE SPUTUM Culture Observations : NORMAL RESPIRATORY MARGARITO. FINAL TO FOLLOW. Normal [facility] Comment on above: Performed By: #### S PUTCX #### [facility] [address] [place] [address] [address] Merlene Carr PROF 14(COMP METB)on 023 Albumin [Mass/Vol] 3.6 g/dL Normal 3.4-5.0 [facility] Comment on above: Performed By: #### H STROPN, BNP, CMP ####[facility] [address] [place] [address]Dr. Merlene Carr Albumin/Globulin [Mass ratio] 0.9 {ratio} Normal [facility] Comment on above: Performed By: #### H STROPN, BNP, CMP ####[facility] [address] [place] [address]Dr. Merlene Carr ALP [Catalytic activity/Vol] 74 U/L Normal 46-116 [facility] Comment on above: Performed By: #### H STROPN, BNP, CMP ####[facility] [address] [place] [address]Dr. Merlene Carr ALT [Catalytic activity/Vol] 35 U/L Normal 14-59 [facility] Comment on above: Performed By: #### H STROPN, BNP, CMP ####[facility] [address] [place] [address]Dr. Merlene Carr Anion gap [Moles/Vol] 16.8 mmol/L Normal [facility] Comment on above: Performed By: #### H STROPN, BNP, CMP ####[facility] [address] [place], [place] [address]Dr. Merlene Carr AST [Catalytic activity/Vol] 24 U/L Normal 15-37 [facility] Comment on above: Performed By: #### H STROPN, BNP, CMP ####[facility] [address] [place] [address]Dr. Merlene Carr Bilirubin [Mass/Vol] 0.2 mg/dL Normal 0.2-1.0 [facility] Comment on above: Performed By: #### H STROPN, BNP, CMP ####[facility] [address] [place] [address]Dr. Merlene Carr Calcium [Mass/Vol] 9.7 mg/dL Normal 8.5-10.1 [facility] Comment on above: Performed By: #### H STROPN, BNP, CMP ####[facility] [address] [place] [address]Dr. Merlene Carr Chloride [Moles/Vol] 106 mmol/L Normal 98-107 [facility] Comment on above: Performed By: #### H STROPN, BNP, CMP ####[facility] [address] [place] [address]Dr. Lisaaurora Bruno CO2 [Moles/Vol] 25.3 mmol/L Normal 21.0-32.0 [facility] Comment on above: Performed By: #### H STROPN, BNP, CMP ####[facility] [address] [place] [address]Dr. Merlene Carr Creatinine [Mass/Vol] 1.14 mg/dL Critically high 0.55-1.02 [facility] Comment on above: Performed By: #### H STROPN, BNP, CMP ####[facility] [address] [place] [address]Dr. Merlene Carr EGFR-AF SAUDI ARABIAN 60 mL/min/1.73m2 Normal >=60 [facility] Comment on above: Performed By: #### H STROPN, BNP, CMP ####[facility] [address] [place], [place] [address]Dr. Merlene Carr EGFR-NON AF SAUDI ARABIAN 49 mL/min/1.73m2 Critically low >=60 [facility] Comment on above: Performed By: #### H STROPN, BNP, CMP ####[facility] [address] [place], [place] [address]Dr. Merlene Carr Globulin (S) [Mass/Vol] 4.2 g/dL Normal [facility] Comment on above: Performed By: #### H STROPN, BNP, CMP ####[facility] [address] [place] [address]Dr. Merlene Carr Glucose [Mass/Vol] 95 mg/dL Normal 74-106 [facility] Comment on above: Performed By: #### H STROPN, BNP, CMP ####[facility] [address] [place], [place] [address]Dr. Merlene Carr Potassium [Moles/Vol] 4.1 mmol/L Normal 3.5-5.1 [facility] Comment on above: Performed By: #### H STROPN, BNP, CMP ####[facility] [address] [place] [address]Dr. Merlene Carr Protein [Mass/Vol] 7.8 g/dL Normal 6.4-8.[address] [facility] Comment on above: Performed By: #### H STROPN, BNP, CMP ####[facility] [address] [place] [address]Dr. Merlene Carr Sodium [Moles/Vol] 144 mmol/L Normal 136-[address] [facility] Comment on above: Performed By: #### H STROPN, BNP, CMP ####[facility] [address] [place] [address]Dr. Merlene Carr Urea nitrogen [Mass/Vol] 10.0 mg/dL Normal 7.0-18.0 [facility] Comment on above: Performed By: #### H CARLOSPN, BNP, CMP ####[facility] [address] [place] [address]Dr. Merlene Carr Urea nitrogen/Creatinine [Mass ratio] 8.8 mg/mg Normal [facility] Comment on above: Performed By: #### H STROPN, BNP, CMP ####[facility] [address] [place] [address]DrMatthew Carr SPUTUM GRAM STAINon 09-06-19 COMMENTS [facility] Comment on above: Performed By: #### S PUTGS #### [facility] [address] [place] [address] [address] Merlene Carr DIPHTHEROIDS Normal [facility] Comment on above: Performed By: #### S PUTGS #### [facility] [address] [place] [address] [address] Merlene Carr EPITHELIALS >25 Normal [facility] Comment on above: Performed By: #### S PUTGS #### [facility] [address] [place] [address] [address] Merlene Carr FUNGAL ELEMENTS Normal [facility] Comment on above: Performed By: #### S PUTGS #### [facility] [address] [place] [address] [address] Merlene Carr GRAM NEG BACILLI Normal [facility] Comment on above: Performed By: #### S PUTGS #### [facility] [address] [place] [address] [address] Merlene Carr GRAM NEG DIPPLOCOCCI Normal [facility] Comment on above: Performed By: #### S PUTGS #### [facility] [address] [place] [address] [address] Merlene Carr GRAM POS BACILLI Normal [facility] Comment on above: Performed By: #### S PUTGS #### [facility] [address] [place] [address] [address] Merlene Carr GRAM POSITIVE COCCI FEW Normal [facility] Comment on above: Performed By: #### S PUTGS #### [facility] [address] [place] [address] [address] Merlene Carr WBC (Bld) [#/Vol] 10*3/uL Normal [facility] Comment on above: Performed By: #### S PUTGS #### [facility] [address] [place] [address] [address] Merlene Carr TROPONIN, HIGH SENSITIVITYon 09-05-2022 HSTROP 9.6 pg/mL Normal 4.0-51.3 [facility] Comment on above: Result Comment: CUT- OFF POINTS HAVE BEEN ESTABLISHED BASED ON THE FOURTH UNIVERSAL DEFINITIONS OF MYOCARDIAL INFARCTION. THE UPPER REFERENCE LIMIT (URL) OF TROPONIN, DEFINED THE 99TH PERCENTILE OF cTnI DISTRIBUTION IN A REFERENCE POPULATION, HAS BEEN CONFIRMED THE DECISION THRESHOLD FOR [place] DIAGNOSIS. Performed By: #### H STROPN, BNP, CMP ####[facility] [address] [place] [address]Dr. Merlene Carr XR CHEST 2 Von 09-05-2022 [...] RISHABH MORENO Date: 2022-09-04 22:55 Normal [facility] Coding Summary.on 08-05-2022 Coding Summary. CD:[id number] W w+PGhlYWQ+GH9JGNYbP39 wtZFkhC4kS8FJBSzSEuha HGIWDCzRLyHvmuQjKZ4bg XNjZXJu IC8+KF5zIHQdAenrhDBqj 9P0jFM9T31eaz2gRWstkB M4MGRuOaRenmwjc9uavLu 6IDcuNmluOyBt VBFhpJ33WRB7rL90Bv36m OUdiORvy9nbhDn2UnLdSU EpNAV7aGvuIJwdr2HzYQS wD08uuZZxx8X5 YDXymGoifNMiDrDpsLC6a L6xGBxnsjppf8agttygGm i4qd91tFXka3L4dJA2X2A zioD8ZPErgTOc VukfuREHfN4uuxtbh2gwd eoqUjMnDHIjNEg2ADr1BY UdsYptHoSrZM77KMT8QYA fguMgO4ViMCAi uXspHyO8y4O1Mm2FA9RXE tumB4UENBALEIljfXO+PC 09og66Q1SfQdkkPlp5ZTS jYCC6bTV7jC9t FSZmVJajs5D7xWD7V9Kvz zQxfp8hn2gfMDVjEZhiS9 1qfPXbd2Q2PNBuxGU6MLJ wqYmrSiPocD21 Oyc+NBYgfOydt1EvFhfmz 7kee0qdaTb0FegwSZHpgs EpzQhyASJ8t1HkDa2jVJF uyBV5sHA3hE7a AgFvFdD0URygL615LdQcs SXoQvhlX85oI2NdgPW+PH SfJjb0FGSlmFakLZ3rU2J hZGRpbmctbGVm zWscOL6xQCXjdfpeKHJkw U3lITQyY6j2IhLcZeY7DK osP3AfNZIbgsuiAl97xE5 eRiXrAtI5KQnn X1HmbfP8VUMqcZMhQZmpQ OQ9C33qh9A6WMKhJQKxEG Q8bEY7cL2jkDuxnrbphPQ mdDsgdmVydGlj XMiqJMonV999FVVvwOyiO kNvZGluZyBEYXRlOiAgMD QvMTUvMjAyMzwvdGQ+PHR jMCV8fKwgRUKe xHRoDGpoPe4hjMjvlDdiH M6pHIUfcgouFQMbbT5jLC HebQGufHooEI9tANEebrr tv825XeYbYHC6 JJHsiLLbB9KtuY4pFjPeF FLuFXVyA6NmdQBfCXnyN7 56OUiiEnD4XPUjitJnG5X sLWFsaWduOiB0 d8T7Jt5Lh5EphvumB8Rev YGsIqFyDoqqIBm1Y5MqVk wvdHI+ER92PHCeNK21CMc 6ARI8lSzhGHzl SDOnC1LeyT9iTeDvCMXnD GRkOyc+PHRhYmxlIHdpZH RoPScxMDAlJyBzdHlsZT0 cOk5dMVMmAVXo nNypiEQdIjEid6lqZWKrW GudPR4ulGwuM4NrgYF7TJ Cux7m0Xp77V61hT5BegND +RHJdpUY8sFM4 fQ0xViNnUdM4FQnwY341T uNwuOUnQywom8kny3bkcD i7MbY5GAGnznVxiJqhZWH 6b1ZfCv26J43d IHdpZHRoPSIxNSUiIHZhb Jiqwr4btU4jCp4+PGNvbC H1bJJ5eL0gXlGuNfQ0AFc kB413FnDtgROx Dydbp8dpu0xvpNp2WzZjV SGjcgOsjLxgZUQ6h3YyJm 04O6ZsrJvbi5HuOwy5ll3 6wHMic0O4aNX2 E5DuTAFyjfixkSKssBpaI I7sBCTzisxlOULsiO9gLD QoQ0m6SwAbCaC2DWdxA5R wamU2HCJmfTHa NXQhrWFDsV3wgljlw0xsq iqiQoYyKRSyJUk9QDi3NI CqsElxGtYkPFN2AoR3QQS 2uSZtxO5oqJyo bwzxaQ0xRbl+HUG6rWCkz MRTKE0fDxuwqSG+PHRkIH O5jCyuXGvwZRUteN8nZKD pZ1g7UbHdFuJ2 VCizC0PygqO4XSLepSYrE PAhiDIHzW6fsnnek8bjrz dsFyHsAXMpILj8OIg8REG saWduOiBsZWZ0 JqK4BSR5iANftZ6ioHrjo plvyO7gIjd+QmlydGggRG K7WGv3O1FtIzc1UYXyyAn bXD6dgOEaQWtw Qu0tmWuhdRssDV2xZZClf bhmh313YsZhp4yyEVXpfL RjDAizOOQ8M11dl9G0MWX lEDWmZBM0rOC6 oB7lcLbddcnlkGLrdYtdn dMdzEzkZWzfZTscN092EY ColCvmIyEoUQp3R7AjTzo 0MWSwnYztKP2t xCOyIQcfJy5ekMcemFjaC G7yEHJjqankl707MaLch0 kjSXSeyRSbOAkoBUG5Y83 jg9Q9JZZyCHOv TXX3cSK3fZ8sgFuohzjsi GVmdDsgdmVydGljYWwtYW xsO022ZZOgzBqcCaFwkUw 3E4YpYeq3RSUy vWxaQU3dzVCeCLqvRx5kh ShvyXkkLZ6ySBRmzxidt6 42TjNqm6quTYNzaCYjYOm lLZQ7K28me4Q1 SSHkSOCmRTL0aPO9jX7qx GlnbjogbGVmdDsgdmVydG adMBjrHZaiN096ONZkfIb nPlBhdGllbnQg ACzzYMt6N0ClMcgnsVM+P F92UNHkCX40pMDwuRWlg0 oqiCn0RfErQCWiDTG9kJe uGZprw1DwTAYk N11kuFYhm6X6EEIwcSria ZXlHmBmjKS4qW6jFWfshe fpw8fblhdwBvpgq6yibd6 8jL77T82tWVgk ZHRoPSIzMCUiIHZhbGlnb z3mgP0uKd7+FVYggNN4nA J7oN6rUYRtCtV9HTogX37 9InRvcCIvPjxj h4oqm5ivbPk5MnE0IWFvx wFvyCjqIFU3p8XaDb92L3 9sIHdpZHRoPSIyMCUiIHZ tyObilp8cdZ7x Ii8+TBCjfNN7sIT6kZ6jF cSeTnV7BYlmH224HjEkkG UsYaimD09lM4VqaCU+PHR hXef8XNWdcGhy BR5sgMBfIZndRo3fNFH9V kXeOuImFPhdM1YqSECqer bwfcedsHN5YXEwXMLgcJ7 5Nq3inVmbONPt rLWDaW5bsgedp0hnepjlS xJlAGXvLRx8PKj1VBLzzB hlFiFbJRD1CcG0QHZ5dEV bgL7yeDgkpdtq fE1nM5JvYSEmztkxCh92p W7fFeLvNmP8ESvhRkr+Sk 9ITlNPTiwgWkVTVEEgQjw vdGQ+PHRkIHN0 pIgkMYipICGxyY0yNOXeK 8r3WsEdYvJ3EMsvV8IhLD FpwcjmHl98gC9mVhZoHrR 2CHeqT4WfotR8 UJMyhIYyKSfuKYV1W62cs 3Z1PGHbESGzWDZ8gNR8iD 1hbGlnbjogbGVmdDsgdmV ydGljYWwtYWxp A054XDHtvDagYvYlGbW5G hH1Eds9S4AuVpo4CNWdaP pcLA7pnQKbJCruOk9qxNc xvGekJS6kBFFu neyrWKRplP8wVGGuyDVkd TkjJZ9bEWZwsmcqk208Xx LbTJF7UJCjiCVrC8ZnpP0 yOiAjMDAwMDAw P1VheVCdOLrmE971DWdeZ xX9VRMpgcRdS3PeVOXtfF wtUqH7i8A8Xj94RVSNLUR yczwvdGQ+PHRk ROG0fRoySXunVUBaoB6oF BXhR9u3QiIlQvY7AEolG7 LmMJNbfypkAa73vM8wLpX cLjY5VLvnF0Pz suJ7VSLkoTYxVQweBGT6R 38hf4B2YSWrNKFmQEB4bJ I7fK6zcUcykeldsWMnxBm gdmVydGljYWwt KAvrG765OKVmwBosKoTwo WFsZTwvdGQ+KZXaTOU3bN uhWOgbKAPirK7uIQEhB8j 6RaJlJhI2AQni G2EtPTYmbgwaSx08xT1hA dJqRlE3SSabY4IteqW7HB RoiQDgXHpxHDF7F70nn0L 6YATbJWWxWTG1 hLS3rD2vaBnfmpczsEEqd DsgdmVydGljYWwtYWxpZ2 43FKZavWtjLg95sYChkQm hrkG4K4OzNgdd dHI+YR36YZOlZG71mUEzb AQrq7ecsBd4YqZzAXYvVY F9cGrfIWaai9QrVBInZ34 luENyv9W9OEHd qEfffVCsDiNpdWM4mU8xR Bntxfmiy8nfylpeLnuqq8 bsst62iF71G87bOWixGMD oPSIzMCUiIHZh aVdicw7dtJ0jEi9+PGNvb TK4aCT9gK6hYuLnXxG3GP tiQ594FvJgiXQxEspcp9v ku0rspQk2BhKj TZRfviAqsFswOGW7g8EkF o91L93qZCojFKBwCOUzAB YxBXGshQivjc1bmI0dNp2 +AY9jl0kzmd91 cF85tXY+FHOfNXZ6oFagN QitMJWnmC9lNPhpMvP1SX FhLjZceF93lALtTFrpVd1 nlQehlRplOC4c MMNjbjxwt504FyPxf0qpP DHxiCCmKXovGUF7O10ka5 B1NSBqITSjVMU7vYY6zL6 hbGlnbjogbGVm dDsgdmVydGljYWwtYWxpZ 959SBXndKagWoQcjLYaV4 mfgkBWGQ7kDawbnEP+PHR cNMH5hPirMXqg FCXncE0sEJYdN3h0UvObP rY7GRwlQ2BvxjR9WUZtfK AlXKNqyMHUnU4hrofxf5p vcjogIzAwMDAw EBp4VAa5UINrgZhvEnDsL GY1FcJ9XMS8xDUdbZ7wyU kjtfzkqY4zGur+RklOOjw vdGQ+PHRkIHN0 hQhqBKmfGCXbzK4aXCRrZ 4z5GyOxEuA6LKtfS1Nixa D0DEGzaRVxJSAyzPHRzC9 trkjbf2yjgkod IfQsUNJzYWr7JFn2KGMbs HdaBtWqDCT5RyK5WDX6yF IoeP7ipTjnykgetF7nXed +TVJOOjwvdGQ+ PIPgUYH3cMocMHyoVIQcf H2cHEPtZ0z0RiQiTcR7ZP gcN4QyxfI5GZDbnICxHZH bpXBArH5hmrph o5hesognNmUjHDXeLDy1J Us0MMCbpRjbPiYtIRQ7Id V1ETW0oQMduP2qmBiuema dgB2uPee+UGF5 WWF0WR20EE71J0TyKwxba GFibGU+PHRhYmxlIHdpZH RoPScxMDAlJyBzdHlsZT0 cMt4wYKGvHWNi bGxhcHNl (more content not included)... Normal [facility] CT Maxillofacial w/o Contras ton 07-31-2022 CT [...] as low as reasonably achievable. Ordering Provider: Gal Collins FINAL REPORT Dictated: 07/31/2022 7:06 pm Nomi Zaragoza MD Signed (Electronic Signature): 07/31/2022 7:06 pm Signed by: Nomi Zaragoza MD Transcribed by: ABNER Technologist: RYDER Normal [facility] Consent for Treatmenton 07-22 Consent for Treatment [id number]#1 .00CD:127 [facility] Physician Orderon 07-25-2022 Physician Order 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 It has not been cleared or approved by the U.S. Food and Drug Administration. This assay has been validated pursuant to the CLIA regulations and is used for clinical purposes. Performed By: #### % SBRAST, [id number] #### [facility] Default [address] [place] [address] Q - RESP ALLERGY PROFILE REG ION Von 04-11-2021 ALTERNARIA ALTERNATA (M6) IGE <0.10 Normal [facility] Specialist Comment on above: Order Comment: [facility] performed at: [employer] [facility], [address] [place] [address], [address] [place] [address], [address] [place] [address], Programming Manager: Velasquez Caldwell MD [facility] Collection Date/Time: [facility] Results Received Date/Time: [facility] Reported Date/Time: Performed By: #### % SBRAST, [id number] #### [facility] Default [address] [place] [address] ASPERGILLUS FUMIGATUS (M3) IGE <0.10 Normal [facility] Specialist Comment on above: Order Comment: [facility] performed at: [employer] [facility], [address] [place] [address], [address] [place] [address], [address] [place] [address], Programming Manager: Velasquez Caldwell MD [facility] Collection Date/Time: [facility] Results Received Date/Time: [facility] Reported Date/Time: Performed By: #### % SBRAST, [id number] #### [facility] Default [address] [place] [address] BERMUDA GRASS (G2) IGE <0.10 Normal [facility] Specialist Comment on above: Order Comment: [facility] performed at: [employer] [facility], [address] [place] [address], [address] [place] [address], [address] [place] [address], Programming Manager: Velasquez Caldwell MD [facility] Collection Date/Time: [facility] Results Received Date/Time: [facility] Reported Date/Time: Performed By: #### % SBRAST, [id number] #### [facility] Default [address] [place] [address] BIRCH (T3) IGE <0.10 Normal [facility] Specialist Comment on above: Order Comment: [facility] Testing performed at: [employer], [employer] [facility], [address], [address] [place] [address], [address] [place] [address], Programming Manager: Velasquez Caldwell MD [facility] Collection Date/Time: [facility] Results Received Date/Time: [facility] Reported Date/Time: Performed By: #### % SBRAST, [id number] #### [facility] Default [address] [place] [address] CAT DANDER (E1) IGE <0.10 Normal [facility] Comment on above: Order Comment: [facility] performed at: [employer], [facility], [address] , [address] [place] [address], [address] [place] [address], Programming Manager: Velasquez Caldwell MD [facility] Collection Date/Time: [facility] Results Received Date/Time: [facility] Reported Date/Time: Performed By: #### % SBRAST, [id number] #### [facility] [address] [place] [address] CLADOSPORIUM HERBARUM (M2) IGE <0.10 Normal [facility] Specialist Comment on above: Order Comment: [facility] performed at: [employer] [facility], [address] , [address] [place] [address], [address] [place] [address], Programming Manager: Velasquez Caldwell MD [facility] Collection Date/Time: [facility] Results Received Date/Time: [facility] Reported Date/Time: Performed By: #### % SBRAST, [id number] #### [facility] Default [address] [place] [address] CLASS 0/1 Normal [facility] Specialist Comment on above: Order Comment: [facility] performed at: [employer], [employer] [facility], [address] [place] [address], [address] [place] [address], [address] [place] [address], Programming Manager: Velasquez Caldwell MD [facility] Collection Date/Time: [facility] Results Received Date/Time: [facility] Reported Date/Time: Performed By: #### % SBRAST, [id number] #### [facility] Default [address] [place] [address] CLASS 0 Normal [facility] Specialist Comment on above: Order Comment: [facility] Testing performed at: [employer] [employer] [facility], [address] [facility], [address] [place] [address], [address] [place] [address], Programming Manager: Velasquez Caldwell MD [facility] Collection Date/Time: [facility] Results Received Date/Time: [facility] Reported Date/Time: Performed By: #### % SBRAST, [id number] #### [facility] Default [address] [place] [address] COCKROACH (I6) IGE <0.10 Normal [facility] Comment on above: Order Comment: [facility] Testing performed at: [employer], [employer] [facility], [address] [place] [address], [address] [place] [address], [address] [place] [address], Programming Manager: Velasquez Caldwell MD [facility] Collection Date/Time: [facility] Results Received Date/Time: [facility] Reported Date/Time: Performed By: #### % SBRAST, [id number] #### [facility] Default [address] [place] [address] COMMON RAGWEED (SHORT) (W1) IGE <0.10 Normal [facility] Comment on above: Order Comment: [facility] Testing performed at: [employer], [employer] [facility], [address] [place] [address], [address] [place] [address], [address] [place] [address], Programming Manager: Velasquez Caldwell MD [facility] Collection Date/Time: [facility] Results Received Date/Time: [facility] Reported Date/Time: Performed By: #### % SBRAST, [id number] #### [facility] Default [address] [place] [address] COTTONWOOD (T14) IGE <0.10 Normal [facility] Comment on above: Order Comment: [facility] Testing performed at: [employer], [employer] [facility], [address] [place] [address], [address] [place] [address], [address] [place] [address], Programming Manager: Velasquez Caldwell MD [facility] Collection Date/Time: [facility] Results Received Date/Time: [facility] Reported Date/Time: Performed By: #### % SBRAST, [id number] #### [facility] Default [address] [place] [address] DERMATOPHAGOIDES FARINAE (D2) IGE 0.11 kU/L [facility] Comment on above: Order Comment: [facility] Testing performed at: [employer], [employer] [facility], [address] [place] [address], [address] [place] [address], [address] [place] [address], Programming Manager: Velasquez Caldwell MD [facility] Collection Date/Time: [facility] Results Received Date/Time: [facility] Reported Date/Time: Performed By: #### % SBRAST, [id number] #### [facility] Default [address] [place] [address] DERMATOPHAGOIDES PTERONYSSINUS (D1) IGE 0.14 kU/L [facility] Comment on above: Order Comment: [facility] Testing performed at: [employer], [employer] [facility], [address] [facility], [address] [place] [address], [address] [place] [address], Programming Manager: Velasquez Caldwell MD [facility] Collection Date/Time: [facility] Results Received Date/Time: [facility] Reported Date/Time: Performed By: #### % SBRAST, [id number] #### [facility] Default [address] [place] [address] DOG DANDER (E5) IGE <0.10 Normal [facility] Specialist Comment on above: Order Comment: [facility] Testing performed at: [employer], [employer] [facility], [address] , [address] [place] [address], [address] [place] [address], Programming Manager: Velasquez Caldwell MD [facility] Collection Date/Time: [facility] Results Received Date/Time: [facility] Reported Date/Time: Performed By: #### % SBRAST, [id number] #### [facility] Default [address] [place] [address] ELM (T8) IGE <0.10 Normal [facility] Specialist Comment on above: Order Comment: [facility] Testing performed at: [employer], [employer] [facility], [address] , [address] [place] [address], [address] [place] [address], Programming Manager: Velasquez Caldwell MD [facility] Collection Date/Time: [facility] Results Received Date/Time: [facility] Reported Date/Time: Performed By: #### % SBRAST, [id number] #### [facility] Default [address] [place] [address] HICKORY/PECAN TREE (T22) IGE <0.10 Normal [facility] Area Plant Manager Comment on above: Order Comment: [facility] Testing performed at: [employer], [employer] [facility], [address] , [address] [place] [address], [address] [place] [address], Programming Manager: Velasquez Caldwell MD [facility] Collection Date/Time: [facility] Results Received Date/Time: [facility] Reported Date/Time: Performed By: #### % SBRAST, [id number] #### [facility] Default [address] [place] [address] IMMUNOGLOBULIN E 83 kU/L Normal [facility] Area Plant Manager Comment on above: Order Comment: [facility] Testing performed at: [employer], [employer] [facility], [address], [address] [place] [address], [address] [place] [address], Programming Manager: Velasquez Caldwell MD [facility] Collection Date/Time: [facility] Results Received Date/Time: [facility] Reported Date/Time: Performed By: #### % SBRAST, [id number] #### [facility] Default [address] [place] [address] MAPLE (BOX ELDER) (T1) IGE <0.10 Normal [facility] Area Plant Manager Comment on above: Order Comment: [facility] Testing performed at: [employer], [employer] [facility], [address] , [address] [place] [address], [phone], Programming Manager: Velasquez Caldwell MD [facility] Collection Date/Time: [facility] Results Received Date/Time: [facility] Reported Date/Time: Performed By: #### % SBRAST, [id number] #### [facility] Default [address] [place] [address] MOUNTAIN CEDAR (T6) IGE <0.10 Normal [facility] Area Plant Manager Comment on above: Order Comment: [facility] Testing performed at: [employer], [employer] [facility], [address], [address] [place] [address], [phone], Programming Manager: Velasquez Caldwell MD [facility] Collection Date/Time: [facility] Results Received Date/Time: [facility] Reported Date/Time: Performed By: #### % SBRAST, [id number] #### [facility] Default [address] [place] [address] MOUSE URINE PROTEINS (E72) IGE <0.10 Normal [facility] Area Plant Manager Comment on above: Order Comment: [facility] Testing performed at: [employer], [employer] [facility], [address] , [address] [place] [address], [phone], Programming Manager: Velasquez Caldwell MD [facility] Collection Date/Time: [facility] Results Received Date/Time: [facility] Reported Date/Time: Performed By: #### % SBRAST, [id number] #### [facility] Default [address] [place] [address] OAK (T7) IGE <0.10 Normal [facility] Area Plant Manager Comment on above: Order Comment: [facility] Testing performed at: [employer], [employer] [facility], [address] [facility], [address] [place] [address], [address] [place] [address], Programming Manager: Velasquez Caldwell MD [facility] Collection Date/Time: [facility] Results Received Date/Time: [facility] Reported Date/Time: Performed By: #### % SBRAST, [id number] #### [facility] Default [address] [place] [address] PENICILLIUM NOTATUM (M1) IGE <0.10 Normal [facility] Area Plant Manager Comment on above: Order Comment: [facility] Testing performed at: [employer], [employer] [facility], [address] [facility], [address] [place] [address], [address] [place] [address], Programming Manager: Velasquez Caldwell MD [facility] Collection Date/Time: [facility] Results Received Date/Time: [facility] Reported Date/Time: Performed By: #### % SBRAST, [id number] #### [facility] Default [address] [place] [address] ROUGH PIGWEED (W14) IGE <0.10 Normal [facility] Specialist Comment on above: Order Comment: [facility] Testing performed at: [employer], [employer] [facility], [address] [facility], [address] [place] [address], [address] [place] [address], Programming Manager: Velasquez Caldwell MD [facility] Collection Date/Time: [facility] Results Received Date/Time: [facility] Reported Date/Time: Performed By: #### % SBRAST, [id number] #### [facility] Default [address] [place] [address] MAURITIAN THISTLE (W11) IGE <0.10 Normal [facility] Area Plant Manager Comment on above: Order Comment: [facility] Testing performed at: [employer], [employer] [facility], [address] [place] [address], [address] [place] [address], [address] [place] [address], Programming Manager: Velasquez Caldwell MD [facility] Collection Date/Time: [facility] Results Received Date/Time: [facility] Reported Date/Time: Performed By: #### % SBRAST, [id number] #### [facility] Default [address] [place] [address] SHEEP SORREL (W18) IGE 0.13 kU/L [facility] Area Plant Manager Comment on above: Order Comment: [facility] Testing performed at: [employer], [employer] [facility], [address] [place] [address], [address] [place] [address], [address] [place] [address], Programming Manager: Velasquez Caldwell MD [facility] Collection Date/Time: [facility] Results Received Date/Time: [facility] Reported Date/Time: Performed By: #### % SBRAST, [id number] #### [facility] Default [address] [place] [address] SYCAMORE (T11) IGE 0.10 kU/L [facility] Specialist Comment on above: Order Comment: [facility] Testing performed at: [employer], [employer] [facility], [address] [place] [address], [address] [place] [address], [address] [place] [address], Programming Manager: Velasquez Caldwell MD [facility] Collection Date/Time: [facility] Results Received Date/Time: [facility] Reported Date/Time: Performed By: #### % SBRAST, [id number] #### [facility] Default [address] [place] [address] ANNE GRASS (G6) IGE <0.10 [facility] Specialist Comment on above: Order Comment: [facility] Testing performed at: [employer], [employer] [facility], [address] [place] [address], [address] [place] [address], [address] [place] [address], Programming Manager: Velasquez Caldwell MD [facility] Collection Date/Time: [facility] Results Received Date/Time: [facility] Reported Date/Time: Performed By: #### % SBRAST, [id number] #### [facility] Default [address] [place] [address] WALNUT TREE (T10) IGE <0.10 Normal [facility] Area Plant Manager Comment on above: Order Comment: [facility] Testing performed at: [facility], [employer] [facility], [address] [place] [address], [address] [place] [address], [address] [place] [address], Programming Manager: Velasquez Caldwell MD [facility] Collection Date/Time: [facility] Results Received Date/Time: [facility] Reported Date/Time: Performed By: #### % SBRAST, [id number] #### [facility] Default [address] [place] [address] WHITE NORBERTO (T15) IGE <0.10 Normal [facility] Specialist Comment on above: Order Comment: [facility] Testing performed at: [employer], [employer] [facility], [address] [place] [address], [address] [place] [address], [address] [place] [address], Programming Manager: Velasquez Caldewll MD [facility] Collection Date/Time: [facility] Results Received Date/Time: [facility] Reported Date/Time: Performed By: #### % SBRAST, [id number] #### [facility] Default [address] [place] [address] WHITE MULBERRY (T70) IGE <0.10 Normal [facility] Area Plant Manager Comment on above: Order Comment: [facility] Testing performed at: [employer], [employer] [facility], [address] [place], [place] [address]e , [address] [place] [address], [address] [place] [address], Programming Manager: Velasquez Caldwell MD [facility] Collection Date/Time: [facility] Results Received Date/Time: [facility] Reported Date/Time: Performed By: #### % SBRAST, [id number] #### [facility] Default [address] [place] [address] LUMBAR SPINE 2 OR 3 [facility]BAR SPINE 2 [facility] [place] [address] Patient Name: FREDI MCKEE : 1965Sex: FAge: Race: BlackMRN: [id number]. Location: 84Patient Status: Date: 03/07/2017 8:30:00 AMCompleted Date: 03/07/2017 08:35 AMRequesting Provider: HOMERO ACEVEDO Attending Provider: Report Copy To: Signs & Symptoms: M51.36 Other intervertebral disc degeneration, lumbar region [id number]: [employer]naComments: , , Views (X-RAY, LUMBAR SPINE): AP, Lateral, L5-S1 Spot , Weight Bearing?: Y , , , Ordering Provider - HOMERO ACEVEDO MD , Exam: LUMBAR SPINE 2 OR 3 VWSAccession #: [id number] LUM BAR SPINE 2 OR 3 VWS 03/07/2017 8:35 [...] is partially visualized and appears unchanged. Approved by:Krystina Ty on 03/07/2017 9:25 AM EST. I, Alex Galarza, have reviewed the images and report and concur with these findings. Electronically signed by:Alex Galarza. Transcribed by: [email or web address], User Resident: KRYSTINA MALONEANElectronically Signed by: ALEX GALARZA @ 03/07/2017 02:18 PMI personally read this/these film(s) with this resident Normal [facility] Comment on above: Order Comment: , , V iews (X-RAY, LUMBAR SPINE): AP, Lateral, L5-S1 Spot , Weight Bearing?: Y , , , Ordering Provider - HOMERO ACEVDEO MD , LUMBAR SPINE 2 OR 3 [facility] LUMBAR SPINE 2 OR 3 S [facility] [address] [place] [address] Patient Name: FREDI MCKEE : 1965Sex: FAge: Race: BlackMRN: [id number]. Location: 84Patient Status: Date: 10/25/2016 8:45:00 AMCompleted Date: 10/25/2016 08:50 AMRequesting Provider: HOMERO ACEVEDO Attending Provider: Report Copy To: Signs & Symptoms: M51.36 Other intervertebral disc degeneration, lumbar region [id number]: [employer]Comments: , , Views (X-RAY, LUMBAR SPINE): AP, Lateral, L5-S1 Spot , Weight Bearing?: Y , , , Ordering Provider - HOMERO SALMON MD , Exam: LUMBAR SPINE 2 OR 3 VWSAccession #: [id number] LUM BAR SPINE 2 OR 3 S 10/25/2016 8:50 AM EDT SIGNS AND SYMPTOMS: [...] disease. Electronically signed by:Moriah Krueger. Transcribed by: [email or web address], User Resident: Electronically Signed by: MORIAH KRUEGER @ 10/25/2016 03:33 PM Normal [facility] Comment on above: Order Comment: , , V iews (X-RAY, LUMBAR SPINE): AP, Lateral, L5-S1 Spot , Weight Bearing?: Y , , , Ordering Provider - HOMERO SALMON MD , BNPon 10-22-2016 BNP 8 pg/mL Normal 0 - 99 [facility] Comment on above: Result Comment: . <1 00 pg/mL - Heart failure [id number] pg/mL - Intermediate probability of acute heart. failure exacerbation. Correlate with clinical. context and patient history. >=300 pg/mL - Heart Failure likely. Correlate with clinical. context and patient history.BNP testing is performed using different testingmethodology at [facility] than at [facility]. Direct result comparisons shouldonly be made within the same method. Performed By: #### B NP2 ####[facility] ,[facility], [phone] CBC AND DIFFERENTIALon 10-22 % AUTOMATED IMMATURE GRAN 0.2 % Normal 0.0 - 0.9 [facility] Comment on above: Result Comment: Perc ent differential counts (%) should be interpreted in the context of the absolute cell counts (cells/L). Performed By: #### C BCDF ####[facility] [facility], [phone] % NEUTROPHIL 55.7 % Normal 40.0 - 80.0 [facility] Comment on above: Performed By: #### C BCDF ####[facility] [facility], [phone] Basophils/100 WBC Auto (Bld) 0.05 x10E9/L Normal 0.00 - 0.10 [facility] Comment on above: Performed By: #### C BCDF ####[facility] [facility], [phone] Basophils/100 WBC Auto (Bld) 0.5 % Normal 0.0 - 2.0 [facility] Comment on above: Performed By: #### C BCDF ####[facility] [facility], [phone] Eosinophils 0.23 10*3/uL Normal 0.00 - 0.70 [facility] Comment on above: Performed By: #### C BCDF ####[facility] [facility], [phone] Eosinophils/100 leukocytes 2.1 % Normal 0.0 - 6.0 [facility] Comment on above: Performed By: #### C BCDF ####[facility] [facility], [phone] Erythrocyte distribution width Auto Ratio (RBC) 17.0 % High 11.5 - 14.5 [facility] Comment on above: Performed By: #### C BCDF ####[facility] [facility], [phone] Erythrocytes (RBC) 5.38 x10E12/L High 4.00 - 5.20 [facility] Comment on above: Performed By: #### C BCDF ####[facility] [facility], [phone] Hematocrit (HCT) 39.8 % Normal 36.0 - 46.0 [facility] Comment on above: Performed By: #### C BCDF ####[facility] [facility], [phone] Hemoglobin mass conc (Bld) 12.7 g/dL Normal 12.0 - 16.0 [facility] Comment on above: Performed By: #### C BCDF ####[facility] [facility], [phone] Lymphocytes 3.64 10*3/uL Normal 1.20 - 4.80 [facility] Comment on above: Performed By: #### C BCDF ####[facility] [facility], [phone] Lymphocytes/100 leukocytes 33.4 % Normal 13.0 - 44.0 [facility] Comment on above: Performed By: #### C BCDF ####[facility] [facility], [phone] MCHC mass conc (RBC) 31.9 g/dL Low 32.0 - 36.0 [facility] Comment on above: Performed By: #### C BCDF ####[facility] [facility], [phone] MCV 74 fL Low 80 - 100 [facility] Comment on above: Performed By: #### C BCDF ####[facility] [facility], [phone] Monocytes 0.88 10*3/uL Normal 0.10 - 1.00 [facility] Comment on above: Performed By: #### C BCDF ####[facility] [facility], [phone] Monocytes/100 leukocytes 8.1 % Normal 2.0 - 10.0 [facility] Comment on above: Performed By: #### C BCDF ####[facility] [facility], [phone] Neutrophils 6.07 10*3/uL Normal 1.20 - 7.70 [facility] Comment on above: Performed By: #### C BCDF ####[facility] [facility], [phone] Platelets 453 10*3/uL High 150 - 450 [facility] Comment on above: Performed By: #### C BCDF ####[facility] [facility], [phone] WBC (Leukocytes) 10.9 10*3/uL Normal 4.4 - 11.3 [facility] Comment on above: Performed By: #### C BCDF ####[facility] [facility], [phone] COMPREHENSIVE PANELon 2016 Alanine aminotransferase (ALT) 27 U/L Normal 7 - 45 [facility] Comment on above: Result Comment: Janeth ents treated with Sulfasalazine may generate falsely decreased results for ALT. Performed By: #### C MP ####[facility] [facility], [phone] Albumin 4.0 g/dL Normal 3.4 - 5.0 [facility] Comment on above: Performed By: #### C MP ####[facility] [facility], [phone] Alkaline phosphatase (ALP) 74 U/L Normal 33 - 110 [facility] Comment on above: Performed By: #### C MP ####[facility] [facility], [phone] Anion gap 17 mmol/L Normal 10 - 20 [facility] Comment on above: Performed By: #### C MP ####[facility] [facility], [phone] Aspartate aminotransferase (AST) 30 U/L Normal 9 - 39 [facility] Comment on above: Result Comment: MILD HEMOLYSIS DETECTED. The result may be falsely elevated due tohemolysis or other interferents. Clinical correlation is recommended.Repeat testing may be considered. Performed By: #### C MP ####[facility] [facility], [phone] Bicarbonate (HCO3) 22 mmol/L Normal 21 - 32 [facility] Comment on above: Performed By: #### C MP ####[facility] [facility], [phone] Bilirubin (total) 0.5 mg/dL Normal 0.0 - 1.2 [facility] Comment on above: Performed By: #### C MP ####[facility] [facility], [phone] Calcium 9.7 mg/dL Normal 8.6 - 10.6 [facility] Comment on above: Performed By: #### C MP ####[facility] [facility], [phone] Chloride 103 mmol/L Normal 98 - 107 [facility] Comment on above: Performed By: #### C MP ####[facility] [facility], [phone] Creatinine 1.13 mg/dL High 0.50 - 1.05 [facility] Comment on above: Performed By: #### C MP ####[facility] [facility], [phone] eGFR (non-black) 51 mL/min/{1.73_m2} Invalid Interpretation Code >60 [facility] Comment on above: Performed By: #### C MP ####[facility] [facility], [phone] eGFR (non-black) 62 mL/min/{1.73_m2} Normal >60 [facility] Comment on above: Result Comment: CALC ULATIONS OF ESTIMATED GFR ARE PERFORMED USING THE MDRD STUDY EQUATION FOR THE IDMS-TRACEABLE CREATININE METHODS. CLIN CHEM 2007;53:766-72 Performed By: #### C MP ####[facility] [facility], [phone] Glucose mass conc 126 mg/dL High 74 - 99 [facility] Comment on above: Performed By: #### C MP ####[facility] [facility], [phone] Potassium molar conc 4.2 mmol/L Normal 3.5 - 5.3 [facility] Comment on above: Result Comment: MILD HEMOLYSIS DETECTED. The result may be falsely elevated due tohemolysis or other interferents. Clinical correlation is recommended.Repeat testing may be considered. Performed By: #### C MP ####[facility] [facility], [phone] Protein 8.1 g/dL Normal 6.4 - 8.2 [facility] Comment on above: Performed By: #### C MP ####[facility] [facility], [phone] Sodium 138 mmol/L Normal 136 - 145 [facility] Comment on above: Performed By: #### C MP ####[facility] [facility], [phone] Urea nitrogen 13 mg/dL Normal 6 - 23 [facility] Comment on above: Performed By: #### C MP ####[facility] [facility], [phone] TROPONIN Ion 10-22-2016 Troponin I.cardiac mass conc ng/mL Normal 0.00 - 0.03 [facility] Comment on above: Result Comment: LESS THAN 0.04 NG/ML: NEGATIVEREPEAT TESTING IN FOUR TO SIX HOURSIF CLINICALLY INDICATED.0.04 - 0.5 NG/ML: CONSISTENT WITH POSSIBLECARDIAC DAMAGE AND POSSIBLE INCREASEDCLINICAL RISK.SERIAL MEASUREMENTS MAY HELP ASSESS EXTENT OFMYOCARDIAL DAMAGE.>0.5 NG/ML: CONSISTENT WITH CARDIAC DAMAGE,INCREASED CLINICAL RISK AND MYOCARDIALINFARCTION. SERIAL MEASUREMENTS MAY HELPASSESS EXTENT OF MYOCARDIAL DAMAGE..Note: Troponin I testing is performed using differenttesting methodology at [facility] than [facility]. Direct result comparisons should onlybe made within the same method. Performed By: #### T ROP2 ####[facility],[facility], [phone] CHEST 2 VIEW PA AND LATon CHEST 2 VIEW PA AND LAT Name: FREDI MCKEE STUDY:CHEST 2 VIEW PA AND LAT; 10/21/2016 9:23 pm INDICATION:Signs/Symp toms: leg swelling. COMPARISON:None. ORDERING CLINICIAN:JUANI REILLY FINDINGS:CARDIOMEDIAS TINAL SILHOUETTE:Cardiomedi astinal silhouette is normal in size and configuration. LUNGS:There is no evidence of pulmonary edema or focal consolidation tosuggest pneumonia. No pneumothorax or pleural effusion is seenbilaterally. ABDOMEN:No remarkable upper abdominal findings. BONES:No acute osseous changes. Status post T10-T11 posterior fusion. IMPRESSION:1. No evidence of acute cardiopulmonary process.Electronicall y signed by: EWA NEELY MD Normal [facility] Large Joint Arthro/Inj: bila teral knee joints [facility] Vital Signs Date Time Vital Sign Value Performing Clinician Brandon blue 05-30-2023 10:05-0500 Body height 165.1 cm Gal Collins MD Work Phone: [facility] 05-30-2023 10:05-0500 Body mass index (BMI) [Ratio] 56.41 kg/m2 Gal Collins MD Work Phone: [facility] 05-30-2023 10:05-0500 Body weight 153.77 kg Gal Collins MD Work Phone: [facility] 05-30-2023 10:05-0500 Diastolic blood pressure 85 mm[Hg] Gal Collins MD Work Phone: [facility] 05-30-2023 10:05-0500 Systolic blood pressure 143 mm[Hg] Gal Collins MD Work Phone: [facility] 11-20-2022 09:32-0400 Body height 162.6 cm [employer]el [employer] Work Phone: [facility] 11-20-2022 09:32-0400 Body weight 149.05 kg Gissel [employer] Work Phone: [facility] Encounters Encounter Date Encounter Type Care Provider Facility Start: 11-12-2023 End: 11-12-[address] [facility] Start: 11-05-2023 End: 11-05-[address] [facility] Start: 09-27-2023 End: 09-29-2023 ambulatory DOROTHEA CLAY [facility] Start: 09-27-2023 End: 09-29-2023 Subsequent hospital visit by physician Mth Mri Scanner [facility] MRI Comment on above: Acute left ankle darrian n Start: 08-30-2023 End: 08-31-2023 Emergency department patient visit CATHRYN [facility] Start: 07-12-2023 End: 07-12-[address] [facility] Start: 07-05-2023 End: 07-23-[address] [facility] Start: 05-30-2023 End: 05-30-2023 ambulatory GAL COLLINS Not Available Start: 05-30-2023 End: 05-30-2023 Office outpatient visit 15 minutes Gal Collins MD Work Phone: [facility] ENT Comment on above: Perichondritis of au ricle, left (Primary Dx) Start: 05-16-2023 End: 05-16-2023 ambulatory GAL COLLINS Not Available Start: 03-09-2023 ambulatory Gal Collins Facility: [facility] Start: 11-20-2022 End: 11-20-2022 ambulatory KALA CONTE Facility:[facility] Start: 11-20-2022 End: 11-20-2022 Patient encounter procedure Gissel Yañez PA-C Work Phone: Orthopaedics Comment on above: Bilateral primary os teoarthritis of knee (Primary Dx); Class 3 severe obesity due to excess calories without serious comorbidity with body mass index (BMI) of 50.0 to 59.9 in adult ([facility]) Start: 11-20-2022 End: 11-20-2022 Subsequent hospital visit by physician [facility] Comment on above: Chronic pain of both knees [M25.561, M25.562, G89.29] Start: 11-03-2022 Orders Only Gissel pate PA-C Work Phone: Orthopaedics Comment on above: Chronic pain of both knees (Primary Dx) Start: 09-04-2022 End: 09-05-2022 [facility]ly [facility] Facility:[facility]1 Start: 07-31-2022 End: 08-01-2022 ambulatory Gal Collins Facility:[facility] Start: 07-31-2022 End: 07-31-2022 Patient encounter procedure Gal Collins [facility] Start: 07-06-2022 End: 07-07-2022 [facility] Facility:[facility]1 Start: 06-08-2022 End: 06-09-[address] CADENCE LUKE . Facility:[facility] Start: 05-18-[address] CADENCE LUKE . Faci lity:H1 Start: 04-19-2022 End: 04-19-2022 [facility] Facility:H1 Start: 02-15-2022 End: 02-16-[address] CADENCE LUKE . Facility:[facility]1 Start: 01-19-2022 End: 01-20-2022 [facility] Facility: Start: 10-18-2021 End: 10-19-[address] CADENCE LUKE . Facility: Start: 10-07-2021 End: 10-08-2021 ambulatory Anne Marroquin II Facility:[facility] Start: 10-06-2021 End: 10-07-2021 ambulatory [facility] Facility: Start: 03-07-2017 End: 03-08-2017 Ambulatory HOMERO ACEVEDO Facility:[facility] Start: 10-25-2016 End: 10-26-2016 Ambulatory HOMEROJOSE C DANIELLETAHIRFY Facility:[facility] Start: 10-21-2016 End: 10-22-2016 Ambulatory Светлана Albright Facility:[facility] Start: 10-21-2016 Emergency dept visit high severity&threat funcj Светлана Imm [facility] Procedures Date Procedure Procedure Detail Performing Clinician Start: 09-27-2023 Mri any jt lower ext rem w/o contrast matrl Dorothea Clay [employer] Work Phone: Start: 11-20-2022 Arthrocentesis aspir &/inj major jt/bursa w/o us Gisseldick Yañez PA-C Work Phone: Start: 11-20-2022 Radiologic exam knee complete 4/more views Gissel Yañez PA-C Work Phone: Start: 11-02-2022 Mammography Gissel Connors PA-C Work Phone: Start: 02-24-2021 Cystoscopy Gal Modesto mis Abdominal hysterectomy Hilar y Timmis Colonoscopy Gal Timmis Decompression of med faraz nerve Gal Timmis Destructive procedure Gal Timmis History of hernia repair Hil juju Timmis History of operative procedure on lumbar spinal structure Gal Timmis Plan of Treatment Date Care Activity Detail Author Start: 10-04-2032 DTaP/Tdap/Td vaccine (2 - Td or Tdap) DTaP/Tdap/Td vaccine (2 - Td or Tdap) [facility] Start: 11-02-2024 Screening for malign ant neoplasm of breast Breast cancer screen [facility] Start: 11-03-2023 Mammography MAMMOGRAM [facility] Start: 11-03-2023 Screening for malign ant neoplasm of breast Mammogram [facility] Start: 04-23-2023 Annual Wellness Visi t (Medicare Advantage) Annual Wellness Visit (Medicare Advantage) [facility] Start: 12-22-2022 Influenza vaccination INFLUENZA (#1) [facility] Start: 10-12-2022 ambulatory Ambulatory Facility:H 1 Start: 04-23-2022 DEPRESSION ASSESSMENT DEPRESSION ASS ESSMENT [facility] Start: 05-27-2021 COVID-19 VACCINE (4 - Moderna series) COVID-19 VACCINE (4 - Moderna series) [facility] Start: 07-15-2017 Shingles vaccine (1 of 2) Shingles vaccine (1 of 2) [facility] Start: 07-15-2017 SHINGRIX VACCINE (1 of 2) SHINGRIX VACCINE (1 of 2) [facility] Start: 07-15-2012 COLOGUARD (FIT-DNA) COLOGUARD (FIT-D NA) [facility] Start: 07-15-2012 Colonoscopy COLONOSCOPY [facility] Start: 07-15-2012 COLORECTAL CANCER SCREENING COLORECTAL CANCER SCREENING [facility] Start: 07-15-[address] COLONOGRAPHY [facility] Start: 07-15-2012 DIABETES SCREEN DIABETES SCREEN [facility] Start: 07-15-2012 FECAL OCCULT BLOOD FECAL OCCULT BLOO D [facility] Start: 07-15-2012 LIPID SCREEN LIPID SCREEN [facility] Start: 07-15-2012 Screening for malign ant neoplasm of colon [facility] turn off the lights [facility] Start: 07-15-2012 SIGMOIDOSCOPY SIGMOIDOSCOPY [facility] Start: 2007 Lipid panel Lipids [employer] Start: 2007 Mammography MAMMOGRAM [facility] Start: 07-15-1997 HPV TESTING HPV TESTING [facility] Start: 07-15-1997 Screening for malign ant neoplasm of cervix [facility] Start: 07-15-1988 PAP TESTING PAP TESTING [facility] Start: 07-15-1988 Screening for malign ant neoplasm of cervix Pap Smear [facility] Start: 07-15-1986 Urine microalbumin profile DTAP,TDAP,TD (1 - Tdap) [facility] Start: 07-15-1985 HEPATITIS C SCREENING HEPATITIS C SC REENING [facility] Start: 07-15-1985 Hepatitis C screening Hepatitis C md reen [facility] Start: 07-15-1985 HIV SCREENING HIV SCREENING [facility] Start: 07-15-1982 HIV screening HIV screen [facility] Start: 1979 Depression Screen Depression Screen [facility] Start: 01-16-1968 COVID-19 VACCINE (#1) COVID-19 VACCI NE (#1) [facility] Start: 1967 HEPATITIS B (1 of 3 - 3-dose series) HEPATITIS B (1 of 3 - 3-dose series) [facility] Start: 1967 Hepatitis B vaccine (1 of 3 - 3-dose series) Hepatitis B vaccine (1 of 3 - 3-dose series) [facility] Start: 1967 Screening for malign ant neoplasm of colon [facility] End: 12-03-2023 XR KNEE GENERAL 4V AP BOTH/PA BOTH/LAT/MERC BILATERAL XR KNEE GENERAL 4V AP BOTH/PA BOTH/LAT/MERC BILATERAL Radiology Routine Chronic pain of both knees 1 Occurrences starting 11/03/2022 until 12/03/2023 [facility] Work Phone: Comment on above: 1 Occurrences starti ng 11/03/2022 until 12/03/2023 [facility] Immunization Date Immunization Notes Care Provider Fa cility 08-21-2020 SARS-CoV-2 (COVID-19 ) mRNA-1273 vaccine Gal Collins [facility] 07-22-2020 SARS-CoV-2 (COVID-19 ) mRNA-1273 vaccine Gal Collins [facility] 02-20-2018 Influenza, injectabl e, Madin Mai Canine Kidney, preservative free, quadrivalent Gissel McFrederick PA-C Work Phone: [facility] 03-12-2017 influenza, seasonal, injectable, preservative free Gissel McFrederick PA-C Work Phone: [facility] 02-15-2016 influenza, seasonal, injectable, preservative free Gissel McFrederick PA-C Work Phone: [facility] 02-24-2015 influenza, seasonal, injectable, preservative free Gissel McFrederick PA-C Work Phone: [facility] 01-09-2012 hepatitis B vaccine, pediatric or pediatric/adolescent dosage Gissel McFrederick PA-C Work Phone: [facility] 01-09-2012 hepatitis B vaccine, unspecified formulation Gissel McFrederick PA-C Work Phone: [facility] Payers Date Payer Category Payer Medicare [id number]. [id number] 2021 Self-pay [id number] 2020 Medicare [id number] 2020 Unknown [id number] 2018 Medicaid [id number] 2017 Unknown [id number] 1967 Unknown [id number] 2.16.84 0.1.461193.3.579.2.593 1967 Unknown [id number] 2.16.84 0.1.849553.3.579.2.593 1967 Unknown [id number] 2.16.84 0.1.705987.3.579.2.593 1967 Unknown [id number] 2.16.84 0.1.435304.3.579.2.593 1967 Unknown [id number] 2.16.84 0.1.013861.3.579.2.593 1967 Unknown [id number] 2.16.84 0.1.549587.3.579.2.593 1967 Unknown [id number] 2.16.84 0.1.647500.3.579.2.593 1967 Unknown [id number] 2.16.84 0.1.757015.3.579.2.593 1967 Unknown [id number] 2.16.84 0.1.726294.3.579.2.593 1967 Unknown [id number] 2.16.84 0.1.462463.3.579.2.593 1967 Unknown [id number] 2.16.8 40.1.272524.3.579.2.727 1967 Unknown [id number] 2.16.84 0.1.871587.3.579.2.1259 1967 Unknown [id number] 2.16.84 0.1.984002.3.579.2.1259 1967 Unknown [id number] 2.16.8 40.1.538371.3.579.2.173 1967 Unknown [id number] 2.16.8 40.1.131644.3.579.2.1286 1967 Unknown [id number] 2.16.8 40.1.143597.3.579.2.1286 1967 Unknown [id number] 2.16.8 40.1.428246.3.579.2.1286 1967 Unknown [id number] 2.16.8 40.1.532227.3.579.2.1286 1967 Unknown [id number] 2.16.8 40.1.345002.3.579.2.1286 1967 Unknown [id number] 2.16.8 40.1.058595.3.579.2.1286 1959 Unknown [id number] Unknown [id number] 2.16.8 40.1.028158.3.579.2.531 Social History Date Type Detail Facility Start: 08-15-2017 End: 01-25-2021 Tobacco smoking status Ex-smoker (finding) [facility] Start: 08-11-2012 End: 11-22-2018 Sex Assigned At Female [facility] History of tobacco use Current smoker [facility] History of tobacco use Cigarette Smoker C [facility] Start: 08-15-2017 End: 05-16-2023 Tobacco use and exposure Smokeless tobacco non-user [facility] Start: 08-14-2018 Alcohol intake Current drinke r of alcohol (finding) [facility] Start: 08-11-2012 End: 11-22-2018 History of Social function [facility] PHQ-2 Score 0 [facility] Start: 08-15-2017 Tobacco Comment quit 2013 [facility] Start: 07-30-2013 Alcohol Comment social [facility] Start: 1965 Sex Assigned At Not on file C [facility] Start: 1965 Sex Assigned At Female [facility] Start: 05-16-2023 Tobacco smoking stat [facility] Never smoked tobacco [facility] Start: 05-30-2023 Alcohol intake Ex-drinker (finding) [facility] How often to you hav e a drink containing alcohol? 2-3 time sa week [facility] How many standard drinks containing alcohol do you have on a typical day? 1 or 2 [facility] How often do you hav e 6 or more drinks on 1 occasion? Never [facility] Start: 05-30-2023 Alcohol Comment caffeine intak e: 1-2 cups per day [facility] consumption unknown [facility] Clinical Notes 10-06-2021 to 11-20-2022 Gissel Yañez PA-C - 11/20/2022 4:47 PM Gissel Vee PA-C - 11/20/2022 9:34 AM Stanley Dwyer, RT(R) - 11/20/2022 9:00 AM EDT Note Date & Type Note Facility 11-20-2022 Note HNO ID: [id number] Author: Gissel Yañez PA-C Service: ? Author Type: Physician Lead Person Type: Progress Notes Filed: 11/20/2022 4:50 PM [...] knee joints Informed Consent Consent Obtained: Verbal Whitney Protocol A moment to CARE was completed. [...] the patient voiced understanding of these instructions. [facility] 11-20-2022 History of Present illness Narrative Associated [...] knee joints Informed Consent Consent Obtained: Verbal Whitney Protocol A moment to CARE was completed. [...] exercise. 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 We discuss our Get Ready program. 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 SIGNATURE: Gissel Yañez PA-C PATIENT NAME: Fredi Mckee DATE: November 20, 2022 TIME: 9:34 AM documented in this encounter [facility] 11-20-2022 Note HNO ID: [id number] Author: Gissel Yañez PA-C Service: ? Author Type: Physician Lead Person Type: Progress Notes Filed: 11/20/2022 4:50 PM [...] exercise. 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 We discuss our Get Ready program. 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 [facility] 11-20-2022 Note HNO ID: [id number] Author: Stanley Martinez RT(R) Service: ? Author [...] RT Quita(R) November 20, 2022 8:40 AM [facility] 11-20-2022 History of Present illness Narrative Radiology [...] 2022 8:40 AM documented in this encounter [facility] 07-06-2022 Note CONSULTATION PROCEDURE DATE: 07/06/2022 [...] injection. Patient tolerated the procedure well. [facility] 06-08-2022 Note CONSULTATION CONSULTATION DATE: 06/08/2022 [...] drive herself. She prefers to go to [place], but it is highly recommended to her to go to the emergency department here at [facility], across the parking lot. We will follow up with her and reschedule her for an appointment. [facility] 02-15-2022 Note CONSULTATION PROCEDURE DATE: 02/15/2022 [...] followed up in the clinic thereafter. [facility] 01-19-2022 Note CONSULTATION CONSULTATION DATE: 01/19/2022 [...] will return in 2-3 weeks' time. [facility] 01-19-2022 Note CONSULTATION PROCEDURE DATE: 01/19/2022 [...] be followed up in the clinic. [facility] 10-18-2021 Note CONSULTATION PROCEDURE DATE: 10/18/2021 [...] range of motion exercises subsequent to this. [facility] Signed and Approved by: DR CADENCE LUKE . 11/01/2021 07:55:00 [facility] 10-06-2021 Note CONSULTATION CONSULTATION DATE: 10/06/2021 [...] plan of care and all questions answered. [facility] Signed and Approved by: ORVILLE PETERS . 10/19/2021 16:23:00 [facility] Evaluation + Plan note No data available for this section [facility] Evaluation note Diagnosis Chronic pain of both knees- Primary [facility] Bilateral primary osteoarthritis of knee- Primary Class 3 severe obesity due to excess calories without serious comorbidity with body mass index (BMI) of 50.0 to 59.9 in adult (HCC) [facility] Chronic pain of both knees [facility] noteNo assessment information available[facility] Work Phone: Evaluation note* Diagnosis Perichondritis of auricle, left- [facility] Acute left ankle pain documented in this encounter [facility] Present illness Narrative* Gal Collins MD - 05/30/2023 10:20 AM EST Subjective Patient ID: Fredi Mckee is a 57 y.o. female who presents for Ear Problem (2 wk recheck ear) Review of Systems All other systems reviewed and are negative. Family History Problem Relation Name Age of Onset Cancer Mother Heart failure Mother Diabetes Father Cancer Father Active Ambulatory Problems Diagnosis Date Noted Abnormal myocardial perfusion study 04/29/2020 Abnormal stress test 04/29/2020 Allergic rhinitis 05/16/2023 Chronic back pain 05/16/2023 Chronic obstructive pulmonary disease ([facility]) 01/02/2020 Degenerative thoracic spinal stenosis 05/16/2023 Essential hypertension ([facility]) 04/29/2020 Fibroid uterus 09/01/2013 Lumbar stenosis 11/27/2016 Nasal congestion 05/16/2023 Shortness of breath 04/29/2020 Perichondritis of auricle, left 05/16/2023 Resolved Ambulatory Problems Diagnosis Date Noted Morbid obesity with BMI of 50.0-59.9, adult ([facility]) 01/02/2020 Past Medical History: Diagnosis Date Anemia Asthma ([facility]) Back pain, thoracic Chronic pansinusitis Congenital urethral stenosis DJD (degenerative joint disease) Hypertension ([facility]) Insomnia Major depressive disorder ([facility] Migraine ([facility]) Pneumonia 2019 PTSD (post-traumatic stress disorder) ([facility]) Past Surgical History: Procedure Laterality Date BACK SURGERY 2014 and 2015 CARPAL TUNNEL RELEASE Bilateral SECTION, CLASSIC 1989 HERNIA REPAIR HYSTERECTOMY 2014 OTHER SURGICAL HISTORY 02/2021 urological procedure Allergies Allergen Reactions Penicillins Hives and Rash Prochlorperazine Anxiety Other Reaction(s): hives, Mental Status Change Current Outpatient Medications on File Prior to Visit Medication Sig Dispense Refill Advair HFA 230-21 MCG/ACT inhaler Inhale 2 puffs in the morning and 2 puffs before bedtime. albuterol (2.5 MG/3ML) 0.083% nebulizer solution Take 2.5 mg by nebulization every 6 (six) hours ifneeded albuterol HFA 90 mcg/act inhaler Inhale 2 puffs every 4 (four) hours if needed amLODIPine (Norvasc) 2.5 MG tablet Take 2.5 mg by mouth in the morning. benralizumab (Fasenra) 30 MG/ML injection Inject 30 mg under the skin every 28 (twenty-eight) days buPROPion SR (Wellbutrin SR) 150 MG 12 hr tablet Take 150 mg by mouth 1 (one) time each day at the same time cetirizine (ZyrTEC) 10 MG tablet Take 10 mg by mouth in the morning. citalopram (CeleXA) 10 MG tablet Take 10 mg by mouth in the morning. cyclobenzaprine (Flexeril) 10 MG tablet Take 1 tablet by mouth in the morning and 1 tablet in the evening and 1 tablet before bedtime. DULoxetine (Cymbalta) [address] capsule Take 30 mg by mouth 1 (one) time each day at the same time fluticasone (Flonase) 50 MCG/ACT nasal spray Administer 1 spray into each nostril 1 (one) time eachday at the same time furosemide (Lasix) 40 MG tablet Take 40 mg by mouth in the morning. ibuprofen 800 MG tablet Take 800 mg by mouth in the morning and 800 mg in the evening and 800 mg before bedtime. oxyCODONE-acetaminophen (Percocet) 5-325 MG tablet Take 1 tablet by mouth every 4 (four) hours if needed Singulair 10 MG tablet Take 10 mg by mouth 1 (one) time each day at the same time spironolactone (Aldactone) 25 MG tablet Take 25 mg by mouth in the morning. zolpidem (Ambien) 10 MG tablet Take 10 mg by mouth 1 (one) time each day at the same time [DISCONTINUED] ciprofloxacin (Cipro) 750 MG tablet Take 1 tablet (750 mg) by mouth in the morning and 1 tablet (750 mg) before bedtime. Do all this for 10 days. 20 tablet 0 No current facility-administered medications on file prior to visit. Objective Last Recorded Vitals Vitals: 05/30/23 1005 BP: 143/85 ENT Physical Exam Ear Auricles: left auricle normal; Assessment/Plan Diagnoses and all orders for this visit: Perichondritis of auricle, left Inflammation resolved. Tx with cipro if recurs and refer pt to rheumatology to be evaluated for autoimmune perichondritis [facility] instructions No data available for this section [facility] No data available for this section [facility] (narrative)* Diagnostic Procedure Only (Routine) - Pending Review Specialty Diagnoses / Procedures Referred By Timmy singh Referred To Contact XR IMAGING Diagnoses Chronic pain of both knees Procedures XR KNEE GENERAL 4V AP BOTH/PA BOTH/LAT/MERC BILATERAL RADIOLOGIC EXAM KNEE COMPLETE 4/MORE VIEWS Gissel Yañez PA-C [address] [address] Xr Imaging Referral ID Status Reason Start Date Expiration Date Visits Requested Visits Authorized [id number] Pending Review Auto-Generat ed Referral 11/03/2022 12/03/2023 1 1 [facility] Diagnostic Procedure Only (Routine) - Closed Specialty Diagnoses / Procedures Referred By Contac t Referred To Contact XR IMAGING Diagnoses Chronic pain of both knees Procedures XR KNEE GENERAL 4V AP BOTH/PA BOTH/LAT/MERC BILATERAL RADIOLOGIC EXAM KNEE COMPLETE 4/MORE VIEWS Gissel Yañez PA-C [address] [address] Xr Imaging Referral ID Status Reason Start Date Expiration Date V isits Requested Visits Authorized [id number] Closed Auto-Generate d Referral 11/03/2022 12/03/2023 1 1 [facility] Summary Purpose Family History No Family [...] Referral Specialty Diagnoses / Procedures Referred By Contac t Referred To Contact Radiology Diagnoses Acute left ankle pain Procedures MRI ANKLE LEFT WO CONTRAST Dorothea Clay, [employer] - [employer] [address] [place] [address] Referral ID Status Reason Start Date Expiration Date Visits Re quested Visits Authorized [id number] Closed 09/10/2023 03/08/2024 1 1 Specialty Diagnoses / Procedures Referred By Contac t Referred To Contact [facility] Diagnoses Class 3 severe obesity due to excess calories without serious comorbidity with body mass index (BMI) of 50.0 to 59.9 in adult (HCC) Bilateral primary osteoarthritis of knee Procedures CONSULT TO PHYSICAL THERAPY PHYSICAL THERAPY EVALUATION HIGH COMPLEX 45 MINS Gissel Yañez PA-C [address] [address] [facility] [place] [address] [place] [address] Referral ID Status Reason Start Date Expiration Date Visits Requested Visits Authorized [id number] Pending Review Auto-Generat ed Referral 11/20/2022 11/20/2023 1 1 Specialty Diagnoses / Procedures Referred By Timmy singh Referred To Contact Diagnoses Class 3 severe obesity due to excess calories without serious comorbidity with body mass index (BMI) of 50.0 to 59.9 in adult ([facility]) Bilateral primary osteoarthritis of knee Procedures ENDOCRINE MEDICAL WEIGHT MANAGEMENT OFFICE/OUTPATIENT [facility] 60-74 MINUTES Gissel Yañez PA-C [address] [address] Referral ID Status Reason Start Date Expiration Date Visits Requested Visits Authorized [id number] Pending Review PCP Requested Referral 11/20/2022 11/20/2023 [...] section and content) DATE CREATED AUTHOR 10/16/2017 [facility] DATE CREATED AUTHOR AUTHOR'S ORGANIZ ATION 10/17/2017 [facility] DATE CREATED AUTHOR AUTHOR'S ORGANIZ ATION 04/14/[address] [facility] dical Specialist DATE CREATED AUTHOR AUTHOR'S ORGANIZ ATION 09/06/2022 [facility] DATE CREATED AUTHOR AUTHOR'S ORGANIZ ATION 11/21/2022 [facility] DATE CREATED AUTHOR AUTHOR'S ORGANIZ ATION 12/23/2022 [facility] DATE CREATED AUTHOR AUTHOR'S ORGANIZ ATION 04/01/2023 [facility] DATE CREATED AUTHOR AUTHOR'S ORGANIZ ATION 05/31/[address] [facility] dical Specialists EPIC DATE CREATED AUTHOR AUTHOR'S ORGANIZ ATION 09/30/2023 [facility] DATE CREATED AUTHOR AUTHOR'S ORGANIZ ATION 11/14/2023 [facility] Patient Care team informatio n (unrecognized section and content) Box Toe Stitcher Relationship Specialty Start Date End Date Kala Conten PCP - General Family Medicine 06/18/17 [facility] [address] [place] [address] Referring 08/28/22 Box Toe Stitcher Relationship Specialty Start Date End Date Inés Kala Adamsn PCP - General Family Medicine 06/18/17 White, Judson [address] [place] [address] Referring 08/28/22 Box Toe Stitcher Relationship Specialty Start Date End Date Conte Kala Elizabeth PCP - General Family Medicine 06/18/17 [facility] [address] [place] [address] Referring 08/28/22 Box Toe Stitcher Relationship Specialty Start Date End Date Kala Conte MD [address] [place], [place] [id number] PCP - General Pediatrics 05/30/23 Box Toe Stitcher Relationship Specialty Start Date End Date Kala Conte MD [address] [place] [address] PCP - General Family Medicine 09/27/23 Source Comments (unrecognize d section and content) In the event this informatio n is protected by the Federal Confidentiality of Alcohol and Drug Abuse Patient Records regulations: The Federal rules restrict any use of the information to criminally investigate or prosecute any alcohol or drug abuse patient.[facility] the event this information is protected by the Federal Confidentiality of Alcohol and Drug Abuse Patient Records regulations: The Federal rules restrict any use of the information to criminally investigate or prosecute any alcohol or drug abuse patient.[facility] the event this information is protected by the Federal Confidentiality of Alcohol and Drug Abuse Patient Records regulations: The Federal rules restrict any use of the information to criminally investigate or prosecute any alcohol or drug abuse patient.[facility] Reason for Visit (unrecogniz ed section and content) Reason Comments Knee Pain Reason Comments Radio Gen A21 Specialty Diagnoses / Procedures Referred By Contac t Referred To Contact XR IMAGING Diagnoses Chronic pain of both knees Procedures XR KNEE GENERAL 4V AP BOTH/PA BOTH/LAT/MERC BILATERAL RADIOLOGIC EXAM KNEE COMPLETE 4/MORE VIEWS Gissel Yañez PA-C [address] [address] Xr Imaging Referral ID Status Reason Start Date Expiration Date V isits Requested Visits Authorized [id number] Closed Auto-Generate d Referral 11/03/2022 12/03/2023 1 1 Reason Comments Ear Problem 2 wk recheck ear Specialty Diagnoses / Procedures Referred By Contac t Referred To Contact Radiology Diagnoses Acute left ankle pain Procedures MRI ANKLE LEFT WO CONTRAST Dorothea Clay, [employer] - [employer] [address] [place] [address] Referral ID Status Reason Start Date Expiration Date Visits Re quested Visits Authorized [id number] Closed 09/10/2023 03/08/2024 1 1 Goals (unrecognized section and content) [...] BE BASED ON THE PRIMARY CLINICAL RECORDS. [employer] provides no warranty or guarantee of the accuracy or completeness of information in this document.
== END 2024-01-08 13:58 | disposition home or self-care (01) ==
LOC: PM 13:57
PROVIDERS: Visit Provider Anesthesiology Pain Medicine
DX: M96.1 Postlaminectomy syndrome, not elsewhere classified (principal); M54.16 Radiculopathy, lumbar region
CPT/HCPCS: G0463

== ENCOUNTER 2024-01-29 06:40 | Outpatient (OUT) | payer MEDICARE, MEDICAID, SELFPAY ==
--- OUTSIDE RECORDS SUMMARY | 2024-01-29 06:42 | XMS_ITS | CCD ---
Author Organization [facility] ion Partnership [facility] Care Team Providers Care Creative Services Producer Name Role Phone ELGAFY, HOMERO K Unavailable [...] Admitting Unavailable PETERS ., [place] Consulting Unavailable [facility] Primary [facility] Unava ilable [facility] Consulting Unava ilable LUKE ., DR CADENCE Hsu Attending Unavailable [facility] Unava ilable PETERS ., [place] Consulting Unavailable LUKE ., DR CADENCE Hsu Admitting Unavailable [facility] Unava ilable EDITH, DR SOTOMAYOR Attending Unavailable EDITH, DR SOTOMAYOR Admitting Unavailable PAY ., DR GRIMM Consulting Unavailable EDITH, DR SOTOMAYOR Consulting Unavailable TROTTI, GIROLAMO Consulting Unavailable [facility] Unava ilable MARKER ., DR MENDOZA Attending Unavailable MARKER ., DR MENDOZA Admitting Unavailable MARKER ., DR MENDOZA Consulting Unavailable RISHABH MORENO Consulting Unavailable [facility] Unava ilable PETERS ., [place] Consulting Unavailable LUKE ., DR CADENCE Hsu Admitting Unavailable LUKE ., DR CADENCE Hsu Attending Unavailable [facility] Unava ilable PETERS ., [place] Consulting Unavailable LUKE ., DR CADENCE Hsu Attending Unavailable LUKE ., DR CADENCE Hsu Admitting Unavailable LUKE ., DR CADENCE Hsu Consulting Unavailable [facility] Unava ilable LUKE ., DR CADENCE Hsu Attending Unavailable LUKE ., DR CADENCE Hsu Admitting Unavailable [facility] Unava ilable LORRAINE .[place] Consulting Unavailable LUKE ., DR CADENCE Hsu Attending Unavailable LUKE ., DR CADENCE Hsu Admitting Unavailable LUKE ., DR CADENCE Hsu Consulting Unavailable LUKE ., DR CADENCE Hsu Attending Unavailable [facility] Unava ilable LUKE ., DR CADENCE Hsu Admitting Unavailable [facility] Unava ilable LAKSHMIPATHY ., NARENDRANATH [...] Unavailable Conte Kala CASTELLON Primary Care Provider Kala Conte MD Primary Care Provider DOROTHEA [...] source) penicillin Drug Allergy 6 [facility]OF [facility] Rep[facility] (4 sources) prochlorperazine; Translations: [Compazine] Drug Allergy 4 [facility]OF [facility] Repository (12 sources) Penicillins; Translations: [penicillins] Drug allergy 4 Eruption of skin (disorder), Hives, Rash [facility] (6 sources) Prochlorperazine; Translations: [prochlorperazine] Drug Allergy 4 Unknown (qualifier value), Eruption of skin (disorder), Anxiety [facility] (5 sources) Prochlorperazine; Translations: [PROCHLORPERAZINE EDISYLATE] Drug Allergy 4 Mental Status Change [facility] (1 source) Prochlorperazine Drug Allergy 2 [facility] Repository Medications Current Medications Medication Drug [...] thereafter, # 42.5 gm, Refills(s) 11, Pharmacy: [facility], 163, cm, 04/14/21 10:37:00 EST, [...] 0 04/22/2023 Active fluticasone 0.05 mg/inh Nasal [place] (1 source) Start: 04-14-2021 fluticasone 0.05 mg/inh Nasal [place] Refill(s) 0 Start Date: 04/14/21 Status: Ordered [...] 01-25-2021 Chronic Other aftercare (1 source) Other snf (current) drug therapy; Translations: [OTH CUSTODIAL CURRENT DRUG THERAPY] Onset: 09-06-2022 Episodic Other [...] Range Facility MAMM SCREENING BILATERAL W 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 [facility] RIS CONSOLIDATED EXAMINATION: MRI OF THE [...] ankle and foot. No organized fluid collection. [facility] RIS Scottie Rice MD - 09/27/2023 [...] fracture deformity of the proximal 5th metatarsal. [facility] Radiology Study observation (narrative) [facility] MR Ankle - left WO contrastO rdered By: Scottie Whitmore on 09-27-2023 [facility] Work Phone: MRI ANKLE LEFT WO CONTRASTon [...] Scottie Whitmore MD 09/27/23 Final result Normal [facility] XR ANKLE LT MIN 3 VWSon 05-0 [...] Baxter MD on 08/30/2023 10:54 PM Normal [facility] Physician Referralon 17-2 023 Physician Referral [id number] 1 [id number] Normal [facility] CNOVon 11-20-2022 CNOV Office Visit (ORTHMN ) FREDI MCKEE ([id number]) 1965 F [place] Date Time Provider Department [...] exercise. 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 We discuss our Get Ready program. 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 Normal [facility] XR KNEE 4V AP/PA/LAT/PINA Chicas 11-20-2022 XR [...] 4V AP/PA/LAT/MERCH ARON COMPARISON: None RESULT: Marked pukb-wj-grak medial compartment narrowing bilaterally with genu varus deformities. Tricompartmental osteophytes bilaterally. No fractures. No joint effusions. 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 No other significant abnormality. --- IMPRESSION: MARKED DEGENERATIVE CHANGES IN THE MEDIAL COMPARTMENTS BILATERALLY Library Science Professor: LENNY Transcribe Date/Time: Nov 20 2022 8:42A Dictated by : ERASMO VALENTE MD This examination was interpreted and the report reviewed and electronically signed by: ERASMO VALENTE MD on Nov 20 2022 8:43AM EST [id number] N Normal [facility] XR KNEE GENERAL 4V AP BOTH/P A BOTH/LAT/MERC BILATERALon 11-20-2022 [facility] BNPon 09-05-2022 Natriuretic peptide B (Bld) [Mass/Vol] 29.0 pg/mL Normal <=900.0 [facility] Comment on above: Performed By: #### H STROPN, BNP, CMP ####[facility] [address] [place], [place] [address]OzDr. Merlene Carr CBC AUTO DIFFon 09-05-2022 BASO # 0.1 103/ul Normal 0.0-0.1 [facility] Comment on above: Performed By: #### C BC #### [facility] [address] [place], [place] [address] Dr. Merlene Carr Basophils/100 WBC (Bld) 0.5 % Normal 0.2-2.0 [facility] Comment on above: Performed By: #### C BC #### [facility] [address] [place] [address] Dr. Merlene Carr EO # 0.6 103/ul Normal 0.0-0.7 [facility] Comment on above: Performed By: #### C BC #### [facility] [address] [place] [address] Dr. Merlene Carr Eosinophils/100 WBC (Bld) 4.9 % Normal 0.9-7.0 [facility] Comment on above: Performed By: #### C BC #### [facility] [address] [place] [address] Dr. Merlene Carr Erythrocyte distribution width (RBC) [Ratio] 14.0 % Normal 11.0-15.0 [facility] Comment on above: Performed By: #### C BC #### [facility] [address] [place] [address] Dr. Merlene Carr Hematocrit (Bld) [Volume fraction] 41.4 % Normal 36.0-48.0 [facility] Comment on above: Performed By: #### C BC #### [facility] [address] [place] [address] Dr. Merlene Carr Hemoglobin (Bld) [Mass/Vol] 13.0 g/dL Normal 12.0-16.0 [facility] Comment on above: Performed By: #### C BC #### [facility] [address] [place] [address] Dr. Merlene Carr IG # 0.05 10e3/ul Critically high 0.00-0.03 [facility] Comment on above: Performed By: #### C BC #### [facility] [address] [place] [address] Dr. Merlene Carr IG % 0.4 % Normal 0.0-0.5 [facility] Comment on above: Performed By: #### C BC #### [facility] [address] [place] [address] Dr. Merlene Carr LYMPH # 3.2 103/ul Normal 1.2-3.8 [facility] Comment on above: Performed By: #### C BC #### [facility] [address] [place] [address] Dr. Merlene Carr Lymphocytes/100 WBC (Bld) 27.2 % Normal 20.5-60.0 [facility] Comment on above: Performed By: #### C BC #### [facility] [address] [place] [address] Dr. Merlene Carr MANUAL DIFF REQ NO Normal [facility] Comment on above: Performed By: #### C BC #### [facility] [address] [place] [address] Dr. Merlene Carr MCH (RBC) [Entitic mass] 26.7 pg Normal 26.7-34.0 [facility] Comment on above: Performed By: #### C BC #### [facility] [address] [place] [address] Dr. Merlene Carr MCHC (RBC) [Mass/Vol] 31.4 g/dL Normal 29.9-35.2 [facility] Comment on above: Performed By: #### C BC #### [facility] [address] [place] [address] Dr. Merlene Carr MCV (RBC) [Entitic vol] 85.0 fL Normal 81.0-99.0 [facility] Comment on above: Performed By: #### C BC #### [facility] [address] [place] [address] Dr. Merlene Carr MONO # 1.0 103/ul Critically high 0.3-0.8 [facility] Comment on above: Performed By: #### C BC #### [facility] [address] [place] [address] Dr. Merlene Carr Monocytes/100 WBC (Bld) 8.8 % Normal 1.7-12.0 [facility] Comment on above: Performed By: #### C BC #### [facility] [address] [place] [address] Dr. Merlene Carr NEUT # 6.9 103/ul Critically high 1.4-6.5 [facility] Comment on above: Performed By: #### C BC #### [facility] [address] [place] [address] [address] Merlene Carr Neutrophils/100 WBC (Bld) 58.2 % Normal 43.0-75.0 [facility] Comment on above: Performed By: #### C BC #### [facility] [address] [place] [address] [address] Merlene Carr Platelet mean volume (Bld) [Entitic vol] 10.2 fL Normal 9.5-13.5 [facility] Comment on above: Performed By: #### C BC #### [facility] [address] [place] [address] [address] Merlene Carr PLT 392 103/ul Normal 150-450 [facility] Comment on above: Performed By: #### C BC #### [facility] [address] [place] [address] [address] Merlene Carr RBC 4.87 106/ul Normal 4.20-5.40 [facility] Comment on above: Performed By: #### C BC #### [facility] [address] [place] [address] [address] Merlene Carr WBC 11.8 103/ul Critically high 4.0-11.0 [facility] Comment on above: Performed By: #### C BC #### [facility] [address] [place] [address] [address] Merlene Carr CULTURE SPUTUMon 09-05-2022 CULTURE SPUTUM Culture Observations : NORMAL RESPIRATORY MARGARITO. FINAL TO FOLLOW. Normal [facility] Comment on above: Performed By: #### S PUTCX #### [facility] [address] [place] [address] [address] Merlene aCrr PROF 14(COMP METB)on 023 Albumin [Mass/Vol] 3.6 g/dL Normal 3.4-5.0 [facility] Comment on above: Performed By: #### H STROPN, BNP, CMP ####[facility] [address] [place] [address]Dr. Merlene Carr Albumin/Globulin [Mass ratio] 0.9 {ratio} Normal [facility] Comment on above: Performed By: #### H STROPN, BNP, CMP ####[facility] [address] [place] [address]Dr. Merlene Carr ALP [Catalytic activity/Vol] 74 U/L Normal 46-116 [facility] Comment on above: Performed By: #### H STROPN, BNP, CMP ####[facility] [address] [place] [address]Dr. Merlene Carr ALT [Catalytic activity/Vol] 35 U/L Normal 14-59 [facility] Comment on above: Performed By: #### H STROPN, BNP, CMP ####[facility] [address] [place] [address]Dr. Merlene Carr Anion gap [Moles/Vol] 16.8 mmol/L Normal [facility] Comment on above: Performed By: #### H STROPN, BNP, CMP ####[facility] [address] [place], [place] [address]Dr. Merlene Carr AST [Catalytic activity/Vol] 24 U/L Normal 15-37 [facility] Comment on above: Performed By: #### H STROPN, BNP, CMP ####[facility] [address] [place] [address]Dr. Merlene Carr Bilirubin [Mass/Vol] 0.2 mg/dL Normal 0.2-1.0 [facility] Comment on above: Performed By: #### H STROPN, BNP, CMP ####[facility] [address] [place] [address]Dr. Merlene Carr Calcium [Mass/Vol] 9.7 mg/dL Normal 8.5-10.1 [facility] Comment on above: Performed By: #### H STROPN, BNP, CMP ####[facility] [address] [place] [address]Dr. Merlene Carr Chloride [Moles/Vol] 106 mmol/L Normal 98-107 [facility] Comment on above: Performed By: #### H STROPN, BNP, CMP ####[facility] [address] [place] [address]Dr. Lisaaurora Bruno CO2 [Moles/Vol] 25.3 mmol/L Normal 21.0-32.0 [facility] Comment on above: Performed By: #### H STROPN, BNP, CMP ####[facility] [address] [place] [address]Dr. Merlene Carr Creatinine [Mass/Vol] 1.14 mg/dL Critically high 0.55-1.02 [facility] Comment on above: Performed By: #### H STROPN, BNP, CMP ####[facility] [address] [place] [address]Dr. Merlene Carr EGFR-AF BELIZEAN 60 mL/min/1.73m2 Normal >=60 [facility] Comment on above: Performed By: #### H STROPN, BNP, CMP ####[facility] [address] [place], [place] [address]Dr. Merlene Carr EGFR-NON AF BELIZEAN 49 mL/min/1.73m2 Critically low >=60 [facility] Comment on above: Performed By: #### H STROPN, BNP, CMP ####[facility] [address] [place], [place] [address]Dr. Merlene Carr Globulin (S) [Mass/Vol] 4.2 g/dL Normal [facility] Comment on above: Performed By: #### H STROPN, BNP, CMP ####[facility] [address] [place] [address]Dr. Merlene Carr Glucose [Mass/Vol] 95 mg/dL Normal 74-106 [facility] Comment on above: Performed By: #### H STROPN, BNP, CMP ####[facility] [address] [place], [place] [address]Dr. Merlene Carr Potassium [Moles/Vol] 4.1 mmol/L Normal 3.5-5.1 [facility] Comment on above: Performed By: #### H STROPN, BNP, CMP ####[facility] [address] [place] [address]Dr. Merlene Carr Protein [Mass/Vol] 7.8 g/dL Normal 6.4-8.2 [facility] Comment on above: Performed By: #### H STROPN, BNP, CMP ####[facility] [address] [place] [address]Dr. Merlene Carr Sodium [Moles/Vol] 144 mmol/L Normal 136-145 [facility] Comment on above: Performed By: #### H STROPN, BNP, CMP ####[facility] [address] [place] [address]Dr. Merlene Carr Urea nitrogen [Mass/Vol] 10.0 mg/dL Normal 7.0-18.0 [facility] Comment on above: Performed By: #### H CARLOSPN, BNP, CMP ####[facility] [address] [place] [address]Dr. Merlene Carr Urea nitrogen/Creatinine [Mass ratio] 8.8 mg/mg Normal [facility] Comment on above: Performed By: #### H STROPN, BNP, CMP ####[facility] [address] [place] [address]DrMatthew Carr SPUTUM GRAM STAINon 09-06-19 COMMENTS [facility] Comment on above: Performed By: #### S PUTGS #### [facility] [address] [place] [address] [address] Merlene Carr DIPHTHEROIDS Normal [facility] Comment on above: Performed By: #### S PUTGS #### [facility] [address] [place] [address] [address] Merlene Carr EPITHELIALS >25 Normal [facility] Comment on above: Performed By: #### S PUTGS #### [facility] [address] [place] [address] [address] Merlene Carr FUNGAL ELEMENTS Normal [facility] Comment on above: Performed By: #### S PUTGS #### [facility] [address] [place] [address] [address] Merlene Carr GRAM NEG BACILLI Normal [facility] Comment on above: Performed By: #### S PUTGS #### [facility] [address] [place] [address] [address] Merlene Carr GRAM NEG DIPPLOCOCCI Normal [facility] Comment on above: Performed By: #### S PUTGS #### [facility] [address] [place] [address] [address] Merlene Carr GRAM POS BACILLI Normal [facility] Comment on above: Performed By: #### S PUTGS #### [facility] [address] [place] [address] [address] Merlene Carr GRAM POSITIVE COCCI FEW Normal [facility] Comment on above: Performed By: #### S PUTGS #### [facility] [address] [address] [address] Merlene Carr WBC (Bld) [#/Vol] 10*3/uL Normal [facility] Comment on above: Performed By: #### S PUTGS #### [facility] [address] [place] [address] [address] Merlene Carr TROPONIN, HIGH SENSITIVITYon 09-05-2022 HSTROP 9.6 pg/mL Normal 4.0-51.3 [facility] Comment on above: Result Comment: CUT- OFF POINTS HAVE BEEN ESTABLISHED BASED ON THE FOURTH UNIVERSAL DEFINITIONS OF MYOCARDIAL INFARCTION. THE UPPER REFERENCE LIMIT (URL) OF TROPONIN, DEFINED THE 99TH PERCENTILE OF cTnI DISTRIBUTION IN A REFERENCE POPULATION, HAS BEEN CONFIRMED THE DECISION THRESHOLD FOR [place] DIAGNOSIS. Performed By: #### H STROPN, BNP, CMP ####[facility] [address] [place] [address]Dr. Merlene Carr XR CHEST 2 Von 09-05-2022 [...] RISHABH MORENO Date: 2022-09-04 22:55 Normal [facility] Coding Summary.on 08-05-2022 Coding Summary. CD:[id number] W w+PGhlYWQ+VO6IHIWxZ10 vxERbsI6lF5MSWJyMQkdi DRGOUTyKHbOgpnTeMI6xt XNjZXJu IC8+OT6wQKYhIbsvjNCqh 6B8dNF2D35jgy4dIQmarJ W2QVTyWlObpsbiy0ncrAd 6IDcuNmluOyBt RMZyeY89KNY2uP84Au03w UQzgZJqw8weyTv1LcSqVV JvQSC9mRtgWLdzw7DaNIA fX15fnESir3F4 UHJyjVbriCShZbXgbYF2r V7wJVhoibali7ezrkclVt j3bb77cXZdf4Y3zCH0U8N lauP5SLLxjFSa YbuplEQDsL3vmnfue0cvc qelWaWmPKSwSYz4XWx8NL FpoMvpDdPgFR86UXQ4EXX ejyBzQ4PxOHZb aGilRdB6y1F5Vd2LA7VUT jbwV1GIRVJSWIbwnGA+PC 86po77I9RaKwocDtx1BSS kKTL7vHW4vC4p YLVlALivl0L1xVR5Z7Rsb gCaer6qj0ylAPKiZSsjF1 6wvAPbz7A1GEHrcBC7UDC kgDkxMdZzlD18 Oyc+MLTbyCsyb1DjGqfyb 4drm0qrbBi5AwxnBDCnun WhrGdjHBS8v8LgCq9oWBY zvAI4iLP9nN5k HoWbUrO0YOtwB475InJvw DQgUfjjV42zZ6XgeCZ+PH VqRbr2NYWuxFzzGL1lE3R hZGRpbmctbGVm cLhpUF9dMPArytlvKNZuo M0mFZYlE9d3CoGhJxX1VA hdW4TcRAMrhmhzPp40nR9 wRsRgHnR0ERvy E2BqxxS3WRCyrJNnYVshS AZ9R39dt8X2NUUzMYLsEM E9cAK8qU2rmAprryngaKT mdDsgdmVydGlj LNfyJAxvI177ARFieLhtZ kNvZGluZyBEYXRlOiAgMD QvMTUvMjAyMzwvdGQ+PHR kOZU5nOdiEBFo vDAkQMajVe0jqGxdqMzyE P9bEIQfbtnfNLWvtH1sHH GklBAjcJezLE1dRQKlkds fc165PtUjEGN0 XEUymZSxW4MnoI8zVlObQ ADiGPAuM0KboPJoRCmzQ0 07UUgfGaQ7WGJbrbNyI8U sLWFsaWduOiB0 p9M1Rh2Sd5CqzsthJ7Nuf GSwEpTeUkomJRz9N5AhSt wvdHI+BH11FEGhUZ36ZKk 3HCW0nEmgHZpm KPMbP2PvbV5fSlTjCVHsU GRkOyc+PHRhYmxlIHdpZH RoPScxMDAlJyBzdHlsZT0 aKw5pFBSvQDFu kCvbuBJxBaKhs8psJQNoL BomBW6cjWkzL6GjyAU9BT Gwf4e2Rh20C75oQ4NiqIO +KEZlfSR0pOM5 gW5pCmJrUjR4EVzrU865A rMsgALuGhlew4odf9iqcD r3WaJ0UFCrdfUllZzdOGP 5g4UhNn82O88i IHdpZHRoPSIxNSUiIHZhb Lyqoz7axN5qEd0+PGNvbC R5wRI4jL8dHnEfNbJ1YVv qX034DbYirQAh Dnfbx4xpz2lffJi8UbRdR BAuhmPbvMcqGAX0d5HsYe 54C6MkfTvao4UbSqh1lc0 2tMCfy9Q2mPM8 W2VwPIYjuwacjMYodUclA X2vHFBvamtnWETgsY3gAE GmZ7b5GjVwKiH7SIddA2X upoT8ROWfjOGw SXKweGIOoR2yuaaxe2evx uiuAwTsZGZjVTt6NCk6QP PlaYkzVmYbDJX6TvW5ITG 8oJDwnA7uzXbe vwszmV4fHbz+UGK1hUZli YUWSL9oOifqjJS+PHRkIH A5oTsfUHjsWCRuhI2vPUN eB5i7HoKtQvH8 FNaoI0KpeyY8UYOjmKAdZ JDcjYIDkX6xtebly2gral vxNhQgCNXjXIe9VGy8TKO saWduOiBsZWZ0 OsB1QME9wZHayA9xcHous qvjiU4fQay+QmlydGggRG C8NCt3Z3YmEuo2AVPahPg kQF1hnRIvPSiu Jk3zvUtzuCdnVJ0nZMTrp gheu168ChWhi0peKGUodP JyCYanSNP6T00bk4Z0SEQ kNYApCGN7bIX0 oO6meVwwcymhaJDeeHrxz kUohYvbGRoyHJxaG259IL FxaPhqQgTxAOg5G8AeKta 1HDSzuMijJM9d hVQzZWijHx4dzDyqeEetL F1tRMNrrlrwn014QmDgo9 lqZEOuxTSnJSjbVPH0F80 dk7T6DDTaMAYq AQP8sYV5tI2wwLhrejmzv GVmdDsgdmVydGljYWwtYW dbE886PJLjtOatRsQmlUt 6H6KwNgo7SWUl hRszAW9shJOeLDpzZd8fq IksgJhlVE5dENEraugjr0 80BbPut0mlYFJwrORwQZl cGOA5J38pf9Z6 FDQiANJlBGW0zJI1oE3xu GlnbjogbGVmdDsgdmVydG ynJTjyEJlcC260RBIfwRj nPlBhdGllbnQg SQkxHKc6H5CaAxpqiQI+P F95RPYsON73vTIlgSDgl3 xdcWx6CnTgMWNwRNW5lKj pWIfja3KsIQOb S91gnGKif2D1ODTauLden OEeMkAchCF7fW2aAXnsny bhg4zjmrslRtrtn2dlhw3 8pH44M34wWCiw ZHRoPSIzMCUiIHZhbGlnb h1yaH3hIh2+ODEjbXL3yK A6gT5tMHRhSwL9FBgwN92 9InRvcCIvPjxj p7pou0owfCu5WvS1EEAcs qOrxRosIOW9h5CrYl78K4 9sIHdpZHRoPSIyMCUiIHZ xjFvsnh2sqJ2c Ii8+YIJeiYQ4nJJ3mZ1wC wGpVyU6YByhO415UkGesO WmIzwpQ02zQ9HyuAN+PHR fUfg1NGMdcQhj ZL4ihKSjDYrlQg7hVWL6T cMtPiIrFQlcF1UaFVYqxp lsjwbvtVV8EUDdJGMzwI7 2Ji7ddGkxQFRa gUNYrE0synoea5lxsxtqN wEcBTMwHYv9XOt1XHFqfE sjFsTcYBQ3XrH7UXS5pEQ xxU9xpWtirdkb jR1qF9NoIMKsdbnrWd43z R1yPsIdJkR7JDnmBok+Sk 9ITlNPTiwgWkVTVEEgQjw vdGQ+PHRkIHN0 oLoeTWcaZZIvzT2qLSGaT 8q5QrUjJxL9RRrpS3VbPN DcydsrSz91gN4nTrLmIaD 9ZUobM7BvvmR5 VTYxoBDgSVesTOW7R34nd 8W7IJLuBDLeVGL7rJS3qR 1hbGlnbjogbGVmdDsgdmV ydGljYWwtYWxp A748YGKxwGtnIeAbQeF3J bJ0Ggb6I6TyHbk8SUYlcO qeAU4tvRKgZAxmZe0epDd ehBouCP1qQKBx szuwJWKvhS0rAEDuoNKyw JtpSF5xLSEwcavyf977Dy EtGQC7IZXgbOJaT4YtrW8 yOiAjMDAwMDAw L7HisZIfAVikN693MTgeU rJ1LIIfglByL4GzBNThpU yeUjU6j8S8Bi95RVQNFID yczwvdGQ+PHRk DVB3qTejMZkyGIZbaA0qG FItA5t8HvKiBdT5CJszZ0 YzCTQgmibjSk11aT9nBrQ hMnO6IPzpT3Cm pwY5ILNqaOZjAQygMPX9S 40gt1M7SVYiMMLkPRM8dS Y5cQ8nfXuwvkayjWGhhDh gdmVydGljYWwt LHucX635OSPhwPieOlKkz WFsZTwvdGQ+NZBgSIC9lS xwGMjcXVWnyF1uMQKjI5n 1YnWvUmA7RAxs Z9NfURHkmjpiYn24eN4bK sHnZbN4JMwhR7YualS2XS MxhTVfSKslCWX3L74qa8R 2XUStTEUzRZJ2 gUH4oX5tdItspwjwaZGjc DsgdmVydGljYWwtYWxpZ2 01ICXixUkzWu69sBJttEv nzdH3W3OtPtij dHI+KV10FDOxWQ17yTZdg KAxv2ofdMh8DdWnNHJqJL C9mIunZZknx1WfWSXvH34 geIBit5K1QUIy sGadhWSaNzGwuGL5uS5sE Sspwssir2dbogufLnrpq7 xeiq03sU68G28eXThfUNU oPSIzMCUiIHZh qEpvqh9hvI7ySj2+PGNvb PW1rAH7tK9pPwKuGtB9IM ytM374OgXdwLJeOvrij7e cj1ivkGi2SyPx TATzbzYkwIldBVV4c8EfB s85B00lVNzsNZVsKMTvXY EkQAGcoIhlgf0nlB6iJk9 +LK6ec5cuzu96 wF70hPD+OPJkDCK1fZudF EfdGRYpkZ0rBYikVtA8JH LoHhEbmE67iOJdPQcsKp0 hhJgobVuxUQ8j CZTrplirz042NzZwz2waM PMtlSGeLWzcAAN8C01yn9 K1HKDpYGQsJIZ3uVE9kM9 hbGlnbjogbGVm dDsgdmVydGljYWwtYWxpZ 427WTLuqHvkWoSbjSLlZ3 fqomOJFM8nWfczdRA+PHR jOST7rMmzVGgn CYEilQ3pADPdU8n2SbDfL dW3RJiiZ8CfanG5MQCgbM CxCMMfpSMPoT6unsmex6o vcjogIzAwMDAw WLh1CBr0LGMihPjfIrQoX LH1HiX7AHM1pEIudR0vyH mbrspnmT3xSoj+RklOOjw vdGQ+PHRkIHN0 zScmNAmeZQFlnD6xUYYdQ 1d5PkLuGhK1YQdnB2Iefx L8MYYcfJFrEZWsyVZGlR7 ujxnuy6nrjkuu AzDmHVNqPXf8FBp7YGKjh VcyNpXtRHE1RqX7YVA7dK TyiC3voXngzvhmpB8yMdw +TVJOOjwvdGQ+ NTFqONZ8wUzuVLyfWDXeh A3gPEIhI9h7ScLwMiB0BF hhA3AvdlJ3AMKrcGRqANN tpPBLiQ5aolws f5fhtripLsAmTFTxGOs3H Sv4MHElyKvgBiJhYAO1Os O2KGF2jDQmvY2yfFaorna ubC7zJzr+UGF5 DVJ2GV85DL83L0ZgZnxet GFibGU+PHRhYmxlIHdpZH RoPScxMDAlJyBzdHlsZT0 aKo7uEECpKECf bGxhcHNl (more content not included)... Normal [facility] CT Maxillofacial w/o Contras ton 07-31-2022 [...] Transcribed by: ABNER Technologist: RYDER Normal [facility] Consent for Treatmenton 07-22 Consent for Treatment [id number] .[id number]:127 [facility] Physician Orderon 07-25-2022 Physician Order [id number] .[id number]:127 Normal [facility] Physician Orderon 06-26-2022 Physician Order [id number] .[id number]:127 Normal [facility] XR CHEST 2 Von 04-19-2022 XR [...] by: Jorden STALEY Date: 2022-04-19 19:45 Normal [facility] Q - ALLERGEN INTERPon 2020 INTERPRETATION SEE NOTE Normal [facility] [employer]inder Comment on above: Order Comment: [facility] performed at: [email or web address], [facility] [address], [address] [place] [address], [address] [place] [address], [phone], Home Agent: Velasquez Caldwell MD [facility] Date/Time: [facility] [...] analytical performance characteristics have been determined by [facility]. It has not been cleared or approved by the U.S. Food and Drug Administration. This assay has been validated pursuant to the CLIA regulations and is used for clinical purposes. Performed By: #### % SBRAST, [id number] #### [facility] Default [address] [place] [address] Q - RESP ALLERGY PROFILE REG ION Von 04-11-2021 ALTERNARIA ALTERNATA (M6) IGE <0.10 Normal [facility] Specialist Comment on above: Order Comment: [facility] performed at: [employer] [facility] [address], [address] [place] [address], [address] [place] [address], [address] [place] [address], Home Agent: Velasquez Caldwell MD [facility] Date/Time: [facility] Results Received Date/Time: [facility] Reported Date/Time: Performed By: #### % SBRAST, [id number] #### [facility] Default [address] [place] [address] ASPERGILLUS FUMIGATUS (M3) IGE <0.10 Normal [facility] Specialist Comment on above: Order Comment: [facility] performed at: [employer] [facility] [address], [address] [place] [address], [address] [place] [address], [address] [place] [address], Home Agent: Velasquez Caldwell MD [facility] Date/Time: [facility] Results Received Date/Time: [facility] Reported Date/Time: Performed By: #### % SBRAST, [id number] #### [facility] [address] [place] [address] BERMUDA GRASS (G2) IGE <0.10 Normal [facility] Specialist Comment on above: Order Comment: [facility] performed at: [employer] [facility] [address], [address] [place] [address], [address] [place] [address], [address] [place] [address], Home Agent: Velasquez Caldwell MD [facility] Date/Time: [facility] Results Received Date/Time: [facility] Reported Date/Time: Performed By: #### % SBRAST, [id number] #### [facility] [address] [place] [address] BIRCH (T3) IGE <0.10 Normal [facility] Specialist Comment on above: Order Comment: [facility] performed at: [email or web address], [facility] [address], [address], [address] [place] [address], [address] [place] [address], Home Agent: Velasquez Caldwell MD [facility] Date/Time: [facility] Results Received Date/Time: [facility] Reported Date/Time: Performed By: #### % SBRAST, [id number] #### [facility] [address] [place] [address] CAT DANDER (E1) IGE <0.10 Normal [facility] Comment on above: Order Comment: [facility] performed at: [email or web address], [facility] [address], [address] , [address] [place] [address], [address] [place] [address], Home Agent: Velasquez Caldwell MD [facility] Date/Time: [facility] Results Received Date/Time: [facility] Reported Date/Time: Performed By: #### % SBRAST, [id number] #### [facility] [address] [place] [address] CLADOSPORIUM HERBARUM (M2) IGE <0.10 Normal [facility] Specialist Comment on above: Order Comment: [facility] performed at: [employer], [facility] [address], [address] , [address] [place] [address], [address] [place] [address], Home Agent: Velasquez Caldwell MD [facility] Date/Time: [facility] Results Received Date/Time: [facility] Reported Date/Time: Performed By: #### % SBRAST, [id number] #### [facility] Default [address] [place] [address] CLASS 0/1 Normal [facility] Specialist Comment on above: Order Comment: [facility] performed at: [employer], [facility] [address], [address] [place] [address], [address] [place] [address], [address] [place] [address], Home Agent: Velasquez Caldwell MD [facility] Date/Time: [facility] Results Received Date/Time: [facility] Reported Date/Time: Performed By: #### % SBRAST, [id number] #### [facility] Default [address] [place] [address] CLASS 0 Normal [facility] Specialist Comment on above: Order Comment: [facility] performed at: [employer], [facility] [address], [address] [facility], [address] [place] [address], [address] [place] [address], Home Agent: Velasquez Caldwell MD [facility] Date/Time: [facility] Results Received Date/Time: [facility] Reported Date/Time: Performed By: #### % SBRAST, [id number] #### [facility] [address] [place] [address] COCKROACH (I6) IGE <0.10 Normal [facility] Comment on above: Order Comment: [facility] performed at: [employer], [facility] [address], [address] [place] [address], [address] [place] [address], [address] [place] [address], Home Agent: Velasquez Caldwell MD [facility] Date/Time: [facility] Results Received Date/Time: [facility] Reported Date/Time: Performed By: #### % SBRAST, [id number] #### [facility] Default [address] [place] [address] COMMON RAGWEED (SHORT) (W1) IGE <0.10 Normal [facility] Comment on above: Order Comment: [facility] performed at: [employer], [facility] [address], [address] [place] [address], [address] [place] [address], [address] [place] [address], Home Agent: Velasquez Caldwell MD [facility] Date/Time: [facility] Results Received Date/Time: [facility] Reported Date/Time: Performed By: #### % SBRAST, [id number] #### [facility] [address] [place] [address] COTTONWOOD (T14) IGE <0.10 Normal [facility] Comment on above: Order Comment: [facility] performed at: [employer], [facility] [address], [address] [place] [address], [address] [place] [address], [address] [place] [address], Home Agent: Velasquez Caldwell MD [facility] Date/Time: [facility] Results Received Date/Time: [facility] Reported Date/Time: Performed By: #### % SBRAST, [id number] #### [facility] [address] [place] [address] DERMATOPHAGOIDES FARINAE (D2) IGE 0.11 kU/L [facility] Comment on above: Order Comment: [facility] performed at: [employer], [facility], [address] [place] [address], [address] [place] [address], [address] [place] [address], Home Agent: Velasquez Caldwell MD [facility] Date/Time: [facility] Results Received Date/Time: [facility] Reported Date/Time: Performed By: #### % SBRAST, [id number] #### [facility] [address] [place] [address] DERMATOPHAGOIDES PTERONYSSINUS (D1) IGE 0.14 kU/L [facility] Comment on above: Order Comment: [facility] performed at: [employer], [facility], [address] [facility], [address] [place] [address], [address] [place] [address], Home Agent: Velasquez Caldwell MD [facility] Date/Time: [facility] Results Received Date/Time: [facility] Reported Date/Time: Performed By: #### % SBRAST, [id number] #### [facility] Default [address] [place] [address] DOG DANDER (E5) IGE <0.10 Normal [facility] Specialist Comment on above: Order Comment: [facility] performed at: [email or web address], [facility] [address], [address] , [address] [place] [address], [address] [place] [address], Home Agent: Velasquez Caldwell MD [facility] Date/Time: [facility] Results Received Date/Time: [facility] Reported Date/Time: Performed By: #### % SBRAST, [id number] #### [facility] Default [address] [place] [address] ELM (T8) IGE <0.10 Normal [facility] Specialist Comment on above: Order Comment: [facility] performed at: [employer], [facility] [address], [address] , [address] [place] [address], [address] [place] [address], Home Agent: Velasquez Caldwell MD [facility] Date/Time: [facility] Results Received Date/Time: [facility] Reported Date/Time: Performed By: #### % SBRAST, [id number] #### [facility] Default [address] [place] [address] HICKORY/PECAN TREE (T22) IGE <0.10 Normal [facility] Cl[employer]inder Comment on above: Order Comment: [facility] performed at: [employer], [facility] [address], [address] , [address] [place] [address], [address] [place] [address], Home Agent: Velasquez Caldwell MD [facility] Date/Time: [facility] Results Received Date/Time: [facility] Reported Date/Time: Performed By: #### % SBRAST, [id number] #### [facility] Default [address] [place] [address] IMMUNOGLOBULIN E 83 kU/L Normal [facility] Cl[employer]inder Comment on above: Order Comment: [facility] performed at: [email or web address], [facility] [address], [address], [address] [place] [address], [address] [place] [address], Home Agent: Velasquez Caldwell MD [facility] Date/Time: [facility] Results Received Date/Time: [facility] Reported Date/Time: Performed By: #### % SBRAST, [id number] #### [facility] Default [address] [place] [address] MAPLE (BOX ELDER) (T1) IGE <0.10 Normal [facility] Cl[employer]inder Comment on above: Order Comment: [facility] performed at: [employer], [facility] [address], [address] , [address] [place] [address], [phone], Home Agent: Velasquez Caldwell MD [facility] Date/Time: [facility] Results Received Date/Time: [facility] Reported Date/Time: Performed By: #### % SBRAST, [id number] #### [facility] Default [address] [place] [address] MOUNTAIN CEDAR (T6) IGE <0.10 Normal [facility] Cl[employer]inder Comment on above: Order Comment: [facility] performed at: [employer], [facility] [address], [address], [address] [place] [address], [phone], Home Agent: Velasquez Caldwell MD [facility] Date/Time: [facility] Results Received Date/Time: [facility] Reported Date/Time: Performed By: #### % SBRAST, [id number] #### [facility] Default [address] [place] [address] MOUSE URINE PROTEINS (E72) IGE <0.10 Normal [facility] Cl[employer] Winder Comment on above: Order Comment: [facility] performed at: [employer], [facility] [address], [address] , [address] [place] [address], [phone], Home Agent: Velasquez Caldwell MD [facility] Date/Time: [facility] Results Received Date/Time: [facility] Reported Date/Time: Performed By: #### % SBRAST, [id number] #### [facility] Default [address] [place] [address] OAK (T7) IGE <0.10 Normal [facility] Cl[employer]inder Comment on above: Order Comment: [facility] performed at: [employer], [facility] [address], [address] [facility], [address] [place] [address], [address] [place] [address], Home Agent: Velasquez Caldwell MD [facility] Date/Time: [facility] Results Received Date/Time: [facility] Reported Date/Time: Performed By: #### % SBRAST, [id number] #### [facility] Default [address] [place] [address] PENICILLIUM NOTATUM (M1) IGE <0.10 Normal [facility] Cl[employer] Comment on above: Order Comment: [facility] performed at: [employer], [facility] [address], [address] [facility], [address] [place] [address], [address] [place] [address], Home Agent: Velasquez Caldwell MD [facility] Date/Time: [facility] Results Received Date/Time: [facility] Reported Date/Time: Performed By: #### % SBRAST, [id number] #### [facility] Default [address] [place] [address] ROUGH PIGWEED (W14) IGE <0.10 Normal [facility] Specialist Comment on above: Order Comment: [facility] Testing performed at: [employer], [facility] [address] [facility], [address] [facility], [address] [place] [address], [address] [place] [address], Home Agent: Velasquez Caldwell MD [facility] Date/Time: [facility] Results Received Date/Time: [facility] Reported Date/Time: Performed By: #### % SBRAST, [id number] #### [facility] Default [address] [place] [address] BAHAMIAN THISTLE (W11) IGE <0.10 Normal [facility] [employer] Comment on above: Order Comment: [facility] performed at: [employer], [facility] [address], [address] [place] [address], [address] [place] [address], [address] [place] [address], Home Agent: Velasquez Caldwell MD [facility] Date/Time: [facility] Results Received Date/Time: [facility] Reported Date/Time: Performed By: #### % SBRAST, [id number] #### [facility] Default [address] [place] [address] SHEEP SORREL (W18) IGE 0.13 kU/L High [facility] Cl[employer]inder Comment on above: Order Comment: [facility] performed at: [employer], [facility] [address], [address] [place] [address], [address] [place] [address], [address] [place] [address], Home Agent: Velasquez Caldwell MD [facility] Date/Time: [facility] Results Received Date/Time: [facility] Reported Date/Time: Performed By: #### % SBRAST, [id number] #### [facility] Default [address] [place] [address] SYCAMORE (T11) IGE 0.10 kU/L [facility] Specialist Comment on above: Order Comment: [facility] Testing performed at: [employer], [facility] [address], [address] [place] [address], [address] [place] [address], [address] [place] [address], Home Agent: Velasquez Caldwell MD [facility] Collection Date/Time: [facility] Results Received Date/Time: [facility] Reported Date/Time: Performed By: #### % SBRAST, [id number] #### [facility] Default [address] [place] [address] ANNE GRASS (G6) IGE <0.10 [facility] Specialist Comment on above: Order Comment: [facility] Testing performed at: [employer], [facility] [address], [address] [place] [address], [address] [place] [address], [address] [place] [address], Home Agent: Velasquez Caldwell MD [facility] Collection Date/Time: [facility] Results Received Date/Time: [facility] Reported Date/Time: Performed By: #### % SBRAST, [id number] #### [facility] Default [address] [place] [address] WALNUT TREE (T10) IGE <0.10 Normal [facility] Cl[employer] Winder Comment on above: Order Comment: [facility] Testing performed at: [facility], [facility] [address], [address] [place] [address], [address] [place] [address], [address] [place] [address], Home Agent: Velasquez Caldwell MD [facility] Collection Date/Time: [facility] Results Received Date/Time: [facility] Reported Date/Time: Performed By: #### % SBRAST, [id number] #### [facility] Default [address] [place] [address] WHITE NORBERTO (T15) IGE <0.10 Normal [facility] Specialist Comment on above: Order Comment: [facility] Testing performed at: [employer], [facility] [address], [address] [place] [address], [address] [place] [address], [address] [place] [address], Home Agent: Velasquez Caldwell MD [facility] Collection Date/Time: [facility] Results Received Date/Time: [facility] Reported Date/Time: Performed By: #### % SBRAST, [id number] #### [facility] Default [address] [place] [address] WHITE MULBERRY (T70) IGE <0.10 Normal [facility] Cl[employer]inder Comment on above: Order Comment: [facility] performed at: [employer], [facility] [address], [address] [place], [place] [address] , [address] [place] [address], [address] [place] [address], Home Agent: Velasquez Caldwell MD [facility] Collection Date/Time: [facility] Results Received Date/Time: [facility] Reported Date/Time: Performed By: #### % SBRAST, [id number] #### [facility] Default [address] [place] [address] LUMBAR SPINE 2 OR 3 [facility] SPINE [facility] [address] [place] [address] Patient Name: FREDI MCKEE : 1965Sex: FAge: Race: BlackMRN: [id number]. Location: 84Patient Status: Date: 03/07/2017 8:30:00 AMCompleted Date: 03/07/2017 08:35 AMRequesting Provider: HOMERO ACEVEDO Attending Provider: Report Copy To: Signs & Symptoms: M51.36 Other intervertebral disc degeneration, lumbar region C52Adulavr: AthenaComments: , , Views (X-RAY, LUMBAR SPINE): AP, Lateral, L5-S1 Spot , Weight Bearing?: Y , , , Ordering Provider - HOMERO ACEVEDO MD , Exam: LUMBAR SPINE 2 OR 3 VWSAccession #: [id number] LUM BAR SPINE 2 OR 3 VWS [...] findings. Electronically signed by:Alex Galarza. Transcribed by: [email or web address], User Resident: KRYSTINA MALONEANElectronically Signed by: ALEX GALARZA @ 03/07/2017 02:18 PMI personally read this/these film(s) with this resident Normal [facility] Comment on above: Order Comment: , , V iews (X-RAY, LUMBAR SPINE): AP, Lateral, L5-S1 Spot , Weight Bearing?: Y , , , Ordering Provider - HOMERO ACEVEDO MD , LUMBAR SPINE 2 OR 3 [facility] LUMBAR SPINE 2 OR 3 [facility] [address]me[address] [place] [address] Patient Name: FREDI MCKEE : 1965Sex: FAge: Race: BlackMRN: [id number]. Location: 84Patient Status: Date: 10/25/2016 8:45:00 AMCompleted Date: 10/25/2016 08:50 AMRequesting Provider: HOMERO ACEVEDO Attending Provider: Report Copy To: Signs & Symptoms: M51.36 Other intervertebral disc degeneration, lumbar region G72Pnywfhf: AthenaComments: , , Views (X-RAY, LUMBAR SPINE): AP, Lateral, L5-S1 Spot , Weight Bearing?: Y , , , Ordering Provider - HOMERO SALMON MD , Exam: LUMBAR SPINE 2 OR 3 VWSAccession #: [id number] LUM BAR SPINE 2 OR 3 S [...] disease. Electronically signed by:Moriah Krueger. Transcribed by: [email or web address], User Resident: Electronically Signed by: MORIAH KRUEGER @ 10/25/2016 03:33 PM Normal [facility] Comment on above: Order Comment: , , V iews (X-RAY, LUMBAR SPINE): AP, Lateral, L5-S1 Spot , Weight Bearing?: Y , , , Ordering Provider - HOMERO SALMON MD , BNPon 10-22-2016 BNP 8 pg/mL Normal 0 - 99 [facility] Comment on above: Result Comment: . <1 00 pg/mL - Heart failure [id number] pg/mL - Intermediate probability of acute heart. failure exacerbation. Correlate with clinical. context and patient history. >=300 pg/mL - Heart Failure likely. Correlate with clinical. context and patient history.BNP testing is performed using different testingmethodology at [facility] than at [facility]. Direct result comparisons shouldonly be made within the same method. Performed By: #### B NP2 ####[facility] ,[facility], [phone] CBC AND DIFFERENTIALon 10-22 % AUTOMATED IMMATURE GRAN 0.2 % Normal 0.0 - 0.9 [facility] Comment on above: Result Comment: Perc ent differential counts (%) should be interpreted in the context of the absolute cell counts (cells/L). Performed By: #### C BCDF ####[facility] [facility], [phone] % NEUTROPHIL 55.7 % Normal 40.0 - 80.0 [facility] Comment on above: Performed By: #### C BCDF ####[facility] [facility], [phone] Basophils/100 WBC Auto (Bld) 0.05 x10E9/L Normal 0.00 - 0.10 [facility] Comment on above: Performed By: #### C BCDF ####[facility] [facility], [phone] Basophils/100 WBC Auto (Bld) 0.5 % Normal 0.0 - 2.0 [facility] Comment on above: Performed By: #### C BCDF ####[facility] [facility], [phone] Eosinophils 0.23 10*3/uL Normal 0.00 - 0.70 [facility] Comment on above: Performed By: #### C BCDF ####[facility] [facility], [phone] Eosinophils/100 leukocytes 2.1 % Normal 0.0 - 6.0 [facility] Comment on above: Performed By: #### C BCDF ####[facility] [facility], [phone] Erythrocyte distribution width Auto Ratio (RBC) 17.0 % High 11.5 - 14.5 [facility] Comment on above: Performed By: #### C BCDF ####[facility] [facility], [phone] Erythrocytes (RBC) 5.38 x10E12/L High 4.00 - 5.20 [facility] Comment on above: Performed By: #### C BCDF ####[facility] [facility], [phone] Hematocrit (HCT) 39.8 % Normal 36.0 - 46.0 [facility] Comment on above: Performed By: #### C BCDF ####[facility] [facility], [phone] Hemoglobin mass conc (Bld) 12.7 g/dL Normal 12.0 - 16.0 [facility] Comment on above: Performed By: #### C BCDF ####[facility] [facility], [phone] Lymphocytes 3.64 10*3/uL Normal 1.20 - 4.80 [facility] Comment on above: Performed By: #### C BCDF ####[facility] [facility], [phone] Lymphocytes/100 leukocytes 33.4 % Normal 13.0 - 44.0 [facility] Comment on above: Performed By: #### C BCDF ####[facility] [facility], [phone] [facility] mass conc (RBC) 31.9 g/dL Low 32.0 - 36.0 [facility] Comment on above: Performed By: #### C BCDF ####[facility] [facility], [phone] MCV 74 fL Low 80 - 100 [facility] Comment on above: Performed By: #### C BCDF ####[facility] [facility], [phone] Monocytes 0.88 10*3/uL Normal 0.10 - 1.00 [facility] Comment on above: Performed By: #### C BCDF ####[facility] [facility], [phone] Monocytes/100 leukocytes 8.1 % Normal 2.0 - 10.0 [facility] Comment on above: Performed By: #### C BCDF ####[facility] [facility], [phone] Neutrophils 6.07 10*3/uL Normal 1.20 - 7.70 [facility] Comment on above: Performed By: #### C BCDF ####[facility] [facility], [phone] Platelets 453 10*3/uL High 150 - 450 [facility] Comment on above: Performed By: #### C BCDF ####[facility] [facility], [phone] WBC (Leukocytes) 10.9 10*3/uL Normal 4.4 - 11.3 [facility] Comment on above: Performed By: #### C BCDF ####[facility] [facility], [phone] COMPREHENSIVE PANELon 2016 Alanine aminotransferase (ALT) 27 U/L Normal 7 - 45 [facility] Comment on above: Result Comment: Janeth ents treated with Sulfasalazine may generate falsely decreased results for ALT. Performed By: #### C MP ####[facility] [facility], [phone] Albumin 4.0 g/dL Normal 3.4 - 5.0 [facility] Comment on above: Performed By: #### C MP ####[facility] [facility], [phone] Alkaline phosphatase (ALP) 74 U/L Normal 33 - 110 [facility] Comment on above: Performed By: #### C MP ####[facility] [facility], [phone] Anion gap 17 mmol/L Normal 10 - 20 [facility] Comment on above: Performed By: #### C MP ####[facility] [facility], [phone] Aspartate aminotransferase (AST) 30 U/L Normal 9 - 39 [facility] Comment on above: Result Comment: MILD HEMOLYSIS DETECTED. The result may be falsely elevated due tohemolysis or other interferents. Clinical correlation is recommended.Repeat testing may be considered. Performed By: #### C MP ####[facility] [facility], [phone] Bicarbonate (HCO3) 22 mmol/L Normal 21 - 32 [facility] Comment on above: Performed By: #### C MP ####[facility] [facility], [phone] Bilirubin (total) 0.5 mg/dL Normal 0.0 - 1.2 [facility] Comment on above: Performed By: #### C MP ####[facility] [facility], [phone] Calcium 9.7 mg/dL Normal 8.6 - 10.6 [facility] Comment on above: Performed By: #### C MP ####[facility] [facility], [phone] Chloride 103 mmol/L Normal 98 - 107 [facility] Comment on above: Performed By: #### C MP ####[facility] [facility], [phone] Creatinine 1.13 mg/dL High 0.50 - 1.05 [facility] Comment on above: Performed By: #### C MP ####[facility] [facility], [phone] eGFR (non-black) 51 mL/min/{1.73_m2} Invalid Interpretation Code >60 [facility] Comment on above: Performed By: #### C MP ####[facility] [facility], [phone] eGFR (non-black) 62 mL/min/{1.73_m2} Normal >60 [facility] Comment on above: Result Comment: CALC ULATIONS OF ESTIMATED GFR ARE PERFORMED USING THE MDRD STUDY EQUATION FOR THE IDMS-TRACEABLE CREATININE METHODS. CLIN CHEM 2007;53:766-72 Performed By: #### C MP ####[facility] [facility], [phone] Glucose mass conc 126 mg/dL High 74 - 99 [facility] Comment on above: Performed By: #### C MP ####[facility] [facility], [phone] Potassium molar conc 4.2 mmol/L Normal 3.5 - 5.3 [facility] Comment on above: Result Comment: MILD HEMOLYSIS DETECTED. The result may be falsely elevated due tohemolysis or other interferents. Clinical correlation is recommended.Repeat testing may be considered. Performed By: #### C MP ####[facility] [facility], [phone] Protein 8.1 g/dL Normal 6.4 - 8.2 [facility] Comment on above: Performed By: #### C MP ####[facility] [facility], [phone] Sodium 138 mmol/L Normal 136 - 145 [facility] Comment on above: Performed By: #### C MP ####[facility] [facility], [phone] Urea nitrogen 13 mg/dL Normal 6 - 23 [facility] Comment on above: Performed By: #### C MP ####[facility] [facility], [phone] TROPONIN Ion 10-22-2016 Troponin I.cardiac mass conc ng/mL Normal 0.00 - 0.03 [facility] Comment on above: Result Comment: LESS THAN 0.04 NG/ML: NEGATIVEREPEAT TESTING IN FOUR TO SIX HOURSIF CLINICALLY INDICATED.0.04 - 0.5 NG/ML: CONSISTENT WITH POSSIBLECARDIAC DAMAGE AND POSSIBLE INCREASEDCLINICAL RISK.SERIAL MEASUREMENTS MAY HELP ASSESS EXTENT OFMYOCARDIAL DAMAGE.>0.5 NG/ML: CONSISTENT WITH CARDIAC DAMAGE,INCREASED CLINICAL RISK AND MYOCARDIALINFARCTION. SERIAL MEASUREMENTS MAY HELPASSESS EXTENT OF MYOCARDIAL DAMAGE..Note: Troponin I testing is performed using differenttesting methodology at [facility] than at [facility]. Direct result comparisons should onlybe made within the same method. Performed By: #### T ROP2 ####[facility],[facility], [phone] CHEST 2 VIEW PA AND LATon CHEST [...] y signed by: EWA NEELY MD Normal [facility] Large Joint Arthro/Inj: bila teral knee joints [facility] Vital Signs Date Time Vital Sign Value Performing Clinician Brandon blue 05-30-2023 10:05-0500 Body height 165.1 cm Gal Collins MD Work Phone: [facility] 05-30-2023 10:05-0500 Body mass index (BMI) [Ratio] 56.41 kg/m2 Gal Collins MD Work Phone: [facility] 05-30-2023 10:05-0500 Body weight 153.77 kg Gal Collins MD Work Phone: [facility] 05-30-2023 10:05-0500 Diastolic blood pressure 85 mm[Hg] Gal Collins MD Work Phone: [facility] 05-30-2023 10:05-0500 Systolic blood pressure 143 mm[Hg] Gal Collins MD Work Phone: [facility] 11-20-2022 09:32-0400 Body height 162.6 cm Gissel [employer] Work Phone: [facility] 11-20-2022 09:32-0400 Body weight 149.05 kg Gissel [employer] Work Phone: [facility] Encounters Encounter Date Encounter Type Care Provider Facility Start: 11-12-2023 End: 11-12-2023 ambulatory [facility] Start: 11-05-2023 End: 11-05-2023 ambulatory [facility] Start: 09-27-2023 End: 09-29-2023 ambulatory DOROTHEA CLAY [facility] Start: 09-27-2023 End: 09-29-2023 Subsequent hospital visit by physician Mth Mri Sc[facility] MRI Comment on above: Acute left ankle darrian n Start: 08-30-2023 End: 08-31-2023 Emergency department patient visit CATHRYN [facility] Start: 07-12-2023 End: 07-12-2023 ambulatory [facility] Start: 07-05-2023 End: 07-23-2023 ambulatory [facility] Start: 05-30-2023 End: 05-30-2023 ambulatory GAL COLLINS Not Available Start: 05-30-2023 End: 05-30-2023 Office outpatient visit 15 minutes Gal Collins MD Work Phone: [facility] Comment on above: Perichondritis of au ricle, left (Primary Dx) Start: 05-16-2023 End: 05-16-2023 ambulatory GAL COLLINS Not Available Start: 03-09-2023 ambulatory Gal Collins Facility: [facility] Start: 11-20-2022 End: 11-20-2022 ambulatory KALA CONTE [facility] Start: 11-20-2022 End: 11-20-2022 Patient encounter procedure Gissel Yañez PA-C Work Phone: Orthopaedics Comment on above: Bilateral primary os teoarthritis of knee (Primary Dx); Class 3 severe obesity due to excess calories without serious comorbidity with body mass index (BMI) of 50.0 to 59.9 in adult ([facility]) Start: 11-20-2022 End: 11-20-2022 Subsequent hospital visit by physician [facility] Comment on above: Chronic pain of both knees [M25.561, M25.562, G89.29] Start: 11-03-2022 Orders Only Gissel pate PA-C Work Phone: Orthopaedics Comment on above: Chronic pain of both knees (Primary Dx) Start: 09-04-2022 End: 09-05-2022 [facility] Facility:H1 Start: 07-31-2022 End: 08-01-2022 ambulatory Gal Collins Facility:[facility] Start: 07-31-2022 End: 07-31-2022 Patient encounter procedure Gal Collins [facility] Start: 07-06-2022 End: 07-07-2022 [facility] Facility:[facility]1 Start: 06-08-2022 End: 06-09-[address] CADENCE LUKE . Facility:[facility]1 Start: 05-18-[address] CADENCE LUKE . Faci lity:H1 Start: 04-19-2022 End: 04-19-2022 [facility] Facility:[facility]1 Start: 02-15-2022 End: 02-16-[address] CADENCE LUKE . Facility:[facility]1 Start: 01-19-2022 End: 01-20-2022 [facility] Facility: Start: 10-18-2021 End: 10-19-[address] CADENCE LUKE . Facility: Start: 10-07-2021 End: 10-08-2021 ambulatory Anne Marroquin II Facility:[facility] Start: 10-06-2021 End: 10-07-2021 ambulatory [facility] Facility: Start: 03-07-2017 End: 03-08-2017 Ambulatory HOMERO ACEVEDO Facility:[facility] Start: 10-25-2016 End: 10-26-2016 Ambulatory HOMEROJOSE C DANIELLETAHIRFY Facility:[facility] Start: 10-21-2016 End: 10-22-2016 Ambulatory Светлана Albright [place] Start: 10-21-2016 Emergency dept visit high severity&threat funcj Светлана Imm [facility] Procedures Date Procedure Procedure Detail Performing Clinician Start: 09-27-2023 Mri any jt lower ext rem w/o contrast matrl Dorothea Clay RAND BUTTER - PATIENT TRANSPORTER Work Phone: Start: 11-20-2022 Arthrocentesis aspir &/inj [...] DTaP/Tdap/Td vaccine (2 - Td or Tdap) [facility] Start: 11-02-2024 Screening for malign ant neoplasm of breast Breast cancer screen [facility] Start: 11-03-2023 Mammography MAMMOGRAM [facility] Start: 11-03-2023 Screening for malign ant neoplasm of breast Mammogram [facility] Start: 04-23-2023 Annual Wellness Visi t (Medicare Advantage) Annual Wellness Visit (Medicare Advantage) [facility] Start: 12-22-2022 Influenza vaccination INFLUENZA (#1) [facility] Start: 10-12-2022 ambulatory Ambulatory Facility:H 1 Start: 04-23-2022 DEPRESSION ASSESSMENT DEPRESSION ASS ESSMENT [facility] Start: 05-27-2021 COVID-19 VACCINE (4 - Moderna series) COVID-19 VACCINE (4 - Moderna series) [facility] Start: 07-15-2017 Shingles vaccine (1 of 2) Shingles vaccine (1 of 2) [facility] Start: 07-15-2017 SHINGRIX VACCINE (1 of 2) SHINGRIX VACCINE (1 of 2) [facility] Start: 07-15-2012 COLOGUARD (FIT-DNA) COLOGUARD (FIT-D NA) [facility] Start: 07-15-2012 Colonoscopy COLONOSCOPY [facility] Start: 07-15-2012 COLORECTAL CANCER SCREENING COLORECTAL CANCER SCREENING [facility] Start: 07-15-[address] COLONOGRAPHY [facility] Start: 07-15-2012 DIABETES SCREEN DIABETES SCREEN [facility] Start: 07-15-2012 FECAL OCCULT BLOOD FECAL OCCULT BLOO D [facility] Start: 07-15-2012 LIPID SCREEN LIPID SCREEN [facility] Start: 07-15-2012 Screening for malign ant neoplasm of colon [facility] Start: 07-15-2012 SIGMOIDOSCOPY SIGMOIDOSCOPY [facility] Start: 2007 Lipid panel Lipids [facility] [employer] Start: 2007 Mammography MAMMOGRAM [facility] Start: 07-15-1997 HPV TESTING HPV TESTING [facility] Start: 07-15-1997 Screening for malign ant neoplasm of cervix [facility] Start: 07-15-1988 PAP TESTING PAP TESTING [facility] Start: 07-15-1988 Screening for malign ant neoplasm of cervix Pap Smear [facility] Start: 07-15-1986 Urine microalbumin profile DTAP,TDAP,TD (1 - Tdap) [facility] Start: 07-15-1985 HEPATITIS C SCREENING HEPATITIS C SC REENING [facility] Start: 07-15-1985 Hepatitis C screening Hepatitis C mo reen [facility] Start: 07-15-1985 HIV SCREENING HIV SCREENING [facility] Start: 07-15-1982 HIV screening HIV screen [facility] Start: 1979 Depression Screen Depression Screen [facility] Start: 01-16-1968 COVID-19 VACCINE (#1) COVID-19 VACCI NE (#1) [facility] Start: 1967 HEPATITIS B (1 of 3 - 3-dose series) HEPATITIS B (1 of 3 - 3-dose series) [facility] Start: 1967 Hepatitis B vaccine (1 of 3 - 3-dose series) Hepatitis B vaccine (1 of 3 - 3-dose series) [facility] Start: 1967 Screening for malign ant neoplasm of colon [facility] End: 12-03-2023 XR KNEE GENERAL 4V AP BOTH/PA BOTH/LAT/MERC BILATERAL XR KNEE GENERAL 4V AP BOTH/PA BOTH/LAT/MERC BILATERAL Radiology Routine Chronic pain of both knees 1 Occurrences starting 11/03/2022 until 12/03/2023 [facility] Work Phone: Comment on above: 1 Occurrences starti ng 11/03/2022 until [facility] Immunization Date Immunization Notes Care Provider Fa cility 08-21-2020 SARS-CoV-2 (COVID-19 ) mRNA-1273 vaccine Gal Collins [facility] 07-22-2020 SARS-CoV-2 (COVID-19 ) mRNA-1273 vaccine Gal Collins [facility] 02-20-2018 Influenza, injectabl e, Madin [place] Canine Kidney, preservative free, quadrivalent Gissel McFrederick PA-C Work Phone: [facility] 03-12-2017 influenza, seasonal, injectable, preservative free Gissel McFrederick PA-C Work Phone: [facility] 02-15-2016 influenza, seasonal, injectable, preservative free Gissel McFrederick PA-C Work Phone: [facility] 02-24-2015 influenza, seasonal, injectable, preservative free Gissel McFrederick PA-C Work Phone: [facility] 01-09-2012 hepatitis B vaccine, pediatric or pediatric/adolescent dosage Gissel McFrederick PA-C Work Phone: [facility] 01-09-2012 hepatitis B vaccine, unspecified formulation Gissel McFrederick PA-C Work Phone: [facility] Payers Date Payer Category Payer Medicare [id number]. [id number] 2021 Self-pay [id number] 2020 Medicare [id number] 2020 Unknown [id number] 2018 Medicaid [id number] 2017 Unknown [id number] 1967 Unknown [id number] 2.16.84 0.1.853550.3.579.2.593 1967 Unknown [id number] 2.16.84 0.1.445818.3.579.2.593 1967 Unknown [id number] 2.16.84 0.1.739574.3.579.2.593 1967 Unknown [id number] 2.16.84 0.1.660793.3.579.2.593 1967 Unknown [id number] 2.16.84 0.1.364236.3.579.2.593 1967 Unknown [id number] 2.16.84 0.1.353616.3.579.2.593 1967 Unknown [id number] 2.16.84 0.1.468945.3.579.2.593 1967 Unknown [id number] 2.16.84 0.1.777618.3.579.2.593 1967 Unknown [id number] 2.16.84 0.1.054386.3.579.2.593 1967 Unknown [id number] 2.16.84 0.1.288191.3.579.2.593 1967 Unknown [id number] 2.16.8 40.1.665444.3.579.2.727 1967 Unknown [id number] 2.16.84 0.1.574480.3.579.2.1259 1967 Unknown [id number] 2.16.84 0.1.767679.3.579.2.1259 1967 Unknown [id number] 2.16.8 40.1.645570.3.579.2.173 1967 Unknown [id number] 2.16.8 40.1.244257.3.579.2.1286 1967 Unknown [id number] 2.16.8 40.1.076423.3.579.2.1286 1967 Unknown [id number] 2.16.8 40.1.930588.3.579.2.1286 1967 Unknown [id number] 2.16.8 40.1.910386.3.579.2.1286 1967 Unknown [id number] 2.16.8 40.1.926677.3.579.2.1286 1967 Unknown [id number] 2.16.8 40.1.847078.3.579.2.1286 1959 Unknown [id number] Unknown [id number] 2.16.8 40.1.357861.3.579.2.531 Social History Date Type Detail Facility Start: 08-15-2017 End: 01-25-2021 Tobacco smoking status Ex-smoker (finding) [facility] Start: 08-11-2012 End: 11-22-2018 Sex Assigned At Female [facility] History of tobacco use Current smoker [facility] History of tobacco use Cigarette Smoker [facility] Start: 08-15-2017 End: 05-16-2023 Tobacco use and exposure Smokeless tobacco non-user [facility] Start: 08-14-2018 Alcohol intake Current drinke r of alcohol (finding) [facility] Start: 08-11-2012 End: 11-22-2018 History of Social function [facility] PHQ-2 Score 0 [facility] Start: 08-15-2017 Tobacco Comment quit 2013 [facility] Start: 07-30-2013 Alcohol Comment social [facility] Start: 1965 Sex Assigned At Not on file [facility] Start: 1965 Sex Assigned At Female Jovanni [facility] Start: 05-16-2023 Tobacco smoking stat [facility] Never smoked tobacco [facility] Start: 05-30-2023 [...] per day [facility] Clinical Notes 10-06-2021 to 11-20-2022 Gissel Yañez PA-C - 11/20/2022 4:47 PM Gissel Vee PA-C - 11/20/2022 9:34 AM Stanley Dwyer, RT(R) - 11/20/2022 9:00 AM EDT Note Date & Type Note Facility 11-20-2022 Note HNO ID: [id number] Author: Gissel Yañez PA-C Service: ? Author Type: Physician Pool Player Type: Progress Notes Filed: 11/20/2022 4:50 PM [...] knee joints Informed Consent Consent Obtained: Verbal [place] Protocol A moment to CARE was completed. [...] the patient voiced understanding of these instructions. [facility] 11-20-2022 History of Present illness [...] knee joints Informed Consent Consent Obtained: Verbal [place] Protocol A moment to CARE was completed. [...] exercise. 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 We discuss our Get Ready program. 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 Author Type: Physician Pool Player Type: Progress Notes Filed: 11/20/2022 4:50 PM [...] exercise. 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 We discuss our Get Ready program. 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 [facility] 11-20-2022 Note HNO ID: [id number] Author: Stanley Martinez RT(R) Service: ? Author [...] RT Quita(R) November 20, 2022 8:40 AM [facility] 11-20-2022 History of Present illness [...] 2022 8:40 AM documented in this encounter [facility] 07-06-2022 Note CONSULTATION PROCEDURE DATE: 07/06/2022 [...] injection. Patient tolerated the procedure well. [facility] 06-08-2022 Note CONSULTATION CONSULTATION DATE: 06/08/2022 [...] drive herself. She prefers to go to [place], but it is highly recommended to her to go to the emergency department here at [facility], across the parking lot. We will follow up with her and reschedule her for an appointment. [facility] 02-15-2022 Note CONSULTATION PROCEDURE DATE: 02/15/2022 [...] followed up in the clinic thereafter. [facility] 01-19-2022 Note CONSULTATION CONSULTATION DATE: 01/19/2022 [...] will return in 2-3 weeks' time. [facility] 01-19-2022 Note CONSULTATION PROCEDURE DATE: 01/19/2022 [...] be followed up in the clinic. [facility] 10-18-2021 Note CONSULTATION PROCEDURE DATE: 10/18/2021 [...] range of motion exercises subsequent to this. [facility] Signed and Approved by: DR CADENCE LUKE . 11/01/2021 07:55:00 [facility] 10-06-2021 Note CONSULTATION CONSULTATION DATE: 10/06/2021 [...] plan of care and all questions answered. [facility] Signed and Approved by: ORVILLE PETERS . 10/19/2021 16:23:00 [facility] Evaluation + Plan note No data available for this section [facility] Evaluation note Diagnosis Chronic pain of both knees- Primary [facility] Bilateral primary osteoarthritis of knee- Primary Class 3 severe obesity due to excess calories without serious comorbidity with body mass index (BMI) of 50.0 to 59.9 in adult (HCC) [facility] Chronic pain of both knees [facility] noteNo assessment information availableFostoria City [facility] Work Phone: Evaluation note* Diagnosis Perichondritis of auricle, left- Primary [facility] Acute left ankle pain documented in this encounter [facility] of Present illness Narrative* Gal Collins MD [...] back pain 05/16/2023 Chronic obstructive pulmonary disease ([facility]) 01/02/2020 Degenerative thoracic spinal stenosis 05/16/2023 Essential hypertension ([facility]) 04/29/2020 Fibroid uterus 09/01/2013 Lumbar stenosis 11/27/2016 Nasal congestion 05/16/2023 Shortness of breath 04/29/2020 Perichondritis of auricle, left 05/16/2023 Resolved Ambulatory Problems Diagnosis Date Noted Morbid obesity with BMI of 50.0-59.9, adult ([facility]) 01/02/2020 Past Medical History: Diagnosis Date Anemia Asthma ([facility]) Back pain, thoracic Chronic pansinusitis Congenital urethral stenosis DJD (degenerative joint disease) Hypertension ([facility]) Insomnia Major depressive disorder ([facility]) Migraine ([facility]) Pneumonia 2019 PTSD (post-traumatic stress disorder) ([facility]) Past Surgical History: Procedure Laterality Date BACK [...] evaluated [facility]ond[facility] No data available for this section [facility] No data available for this section [facility] for referral (narrative)* Diagnostic Procedure Only (Routine) - Pending Review Specialty Diagnoses / Procedures Referred By Timmy singh Referred To Contact XR IMAGING Diagnoses Chronic pain of both knees Procedures XR KNEE GENERAL 4V AP BOTH/PA BOTH/LAT/MERC BILATERAL RADIOLOGIC EXAM KNEE COMPLETE 4/MORE VIEWS Gissel Yañez PA-C [address] [address] Xr Imaging Referral ID Status Reason Start Date Expiration Date Visits Requested Visits Authorized [id number] Pending Review Auto-Generat ed Referral 11/03/2022 12/03/2023 1 [facility] Diagnostic Procedure Only (Routine) - Closed Specialty Diagnoses / Procedures Referred By Contac t Referred To Contact XR IMAGING Diagnoses Chronic pain of both knees Procedures XR KNEE GENERAL 4V AP BOTH/PA BOTH/LAT/MERC BILATERAL RADIOLOGIC EXAM KNEE COMPLETE 4/MORE VIEWS Gissel Yañez PA-C [address] [address] Xr Imaging Referral ID Status Reason Start Date Expiration Date V isits Requested Visits Authorized [id number] Closed Auto-Generate d Referral 11/03/2022 12/03/2023 1 1 [facility] Summary Purpose Family History No Family [...] MRI ANKLE LEFT WO CONTRAST Dorothea Clay, [employer] - PATIENT [employer] [address] [place] [address] Referral ID Status Reason Start Date Expiration Date Visits Re quested Visits Authorized [id number] Closed 09/10/2023 03/08/2024 1 1 Specialty Diagnoses [...] COMPLEX 45 MINS Gissel Yañez PA-C [address] [address] [facility] [place] [address] [place] [address] Referral ID Status Reason Start Date Expiration Date Visits Requested Visits Authorized [id number] Pending Review Auto-Generat ed Referral 11/20/2022 11/20/2023 1 1 Specialty Diagnoses / Procedures Referred By Timmy singh Referred To Contact Diagnoses Class 3 severe obesity due to excess calories without serious comorbidity with body mass index (BMI) of 50.0 to 59.9 in adult ([facility]) Bilateral primary osteoarthritis of knee Procedures ENDOCRINE MEDICAL WEIGHT MANAGEMENT OFFICE/OUTPATIENT [facility] 60-74 MINUTES Gissel Yañez PA-C [address] [address] Referral ID Status Reason Start Date Expiration Date Visits Requested Visits Authorized [id number] Pending Review PCP Requested Referral 11/20/2022 11/20/2023 [...] section and content) DATE CREATED AUTHOR 10/16/2017 [facility] DATE CREATED AUTHOR AUTHOR'S ORGANIZ ATION 10/17/2017 [facility] DATE CREATED AUTHOR AUTHOR'S ORGANIZ ATION 04/14/2021 [facility] dical Specialist DATE CREATED AUTHOR AUTHOR'S ORGANIZ ATION 09/06/2022 [facility] DATE CREATED AUTHOR AUTHOR'S ORGANIZ ATION 11/21/2022 [facility] DATE CREATED AUTHOR AUTHOR'S ORGANIZ ATION 12/23/2022 [facility] DATE CREATED AUTHOR AUTHOR'S ORGANIZ ATION 04/01/2023 [facility] DATE CREATED AUTHOR AUTHOR'S ORGANIZ ATION 05/31/2023 [facility] dical Specialists EPIC DATE CREATED AUTHOR AUTHOR'S ORGANIZ ATION 09/30/2023 [facility] DATE CREATED AUTHOR AUTHOR'S ORGANIZ ATION 11/14/2023 [facility] Patient Care team informatio n (unrecognized section and content) Creative Services Producer Relationship Specialty Start Date End Date Kala Conten PCP - General Family Medicine 06/18/17 [facility] [address] [place] [address] Referring 08/28/22 Creative Services Producer Relationship Specialty Start Date End Date Inés Kala Adamsn PCP - General Family Medicine 06/18/17 [facility] [address] [place] [address] Referring 08/28/22 Creative Services Producer Relationship Specialty Start Date End Date Conte Kala Elizabeth PCP - General Family Medicine 06/18/17 [facility] [address] [place] [address] Referring 08/28/22 Creative Services Producer Relationship Specialty Start Date End Date Kala Conte MD [address] [place], [place] [id number] PCP - General Pediatrics 05/30/23 Creative Services Producer Relationship Specialty Start Date End Date Kala Conte MD [address] [place] [address] PCP - General Family Medicine 09/27/23 Source Comments (unrecognize d section and content) In the event this informatio n is protected by the Federal Confidentiality of Alcohol and Drug Abuse Patient Records regulations: The Federal rules restrict any use of the information to criminally investigate or prosecute any alcohol or drug abuse patient.[facility] the event this information is protected by the Federal Confidentiality of Alcohol and Drug Abuse Patient Records regulations: The Federal rules restrict any use of the information to criminally investigate or prosecute any alcohol or drug abuse patient.[facility] HospitalIn the event this information is protected by the Federal Confidentiality of Alcohol and Drug Abuse Patient Records regulations: The Federal rules restrict any use of the information to criminally investigate or prosecute any alcohol or drug abuse patient.[facility] Reason for Visit (unrecogniz ed section and content) Reason Comments Knee Pain Reason Comments Radio Gen A21 Specialty Diagnoses / Procedures Referred By Contac t Referred To Contact XR IMAGING Diagnoses Chronic pain of both knees Procedures XR KNEE GENERAL 4V AP BOTH/PA BOTH/LAT/MERC BILATERAL RADIOLOGIC EXAM KNEE COMPLETE 4/MORE VIEWS Gissel Yañez PA-C [address] [address] Xr Imaging Referral ID Status Reason Start Date Expiration Date V isits Requested Visits Authorized [id number] Closed Auto-Generate d Referral 11/03/2022 12/03/2023 1 1 Reason Comments Ear Problem 2 wk recheck ear Specialty Diagnoses / Procedures Referred By Contac t Referred To Contact Radiology Diagnoses Acute left ankle pain Procedures MRI ANKLE LEFT WO CONTRAST Dorothea Clay, [employer] - [employer]IENT [employer] [address] [place] [address] Referral ID Status Reason Start Date Expiration Date Visits Re quested Visits Authorized [id number] Closed 09/10/2023 03/08/2024 1 1 Goals (unrecognized [...] BE BASED ON THE PRIMARY CLINICAL RECORDS. [employer] provides no warranty or guarantee of the accuracy or completeness of information in this document.
--- NOTE | 2024-01-29 06:44 | MR_ITS ---
[address] [address] Patient Name: FREDI RICHARDSON MRN: [id number] date: 1965 Sex: F Assigned Patient Location: MRI Current Patient Location: MRI Accession/Order Number: [id number] Exam Date: 01/29/2024 07:00 Report Date: 01/29/2024 15:25 At the request of: DAMIAN CERRATO Procedure: MR lumbar spine wo con EXAM: MR lumbar spine wo con HISTORY: Post laminectomy syndrome, M96.1 COMPARISON: None TECHNIQUE: MRI images obtained with multiple sequences. MRI of the lumbar spine without contrast. Sequences obtained by standard department protocol. FINDINGS: Partially visualized lower thoracic spine fusion hardware. T11-T12: No spinal canal stenosis. Left mild neural foraminal narrowing. Right mild neural foraminal narrowing. T12-L1: No spinal canal stenosis or neural foraminal stenosis. L1-L2: No spinal canal stenosis. No neural foraminal stenosis. Facet joints are normal. L2-L3: Mild disc degeneration. Mild broad-based posterior disc bulge. Left neural foramen is open. Right mild neural foraminal narrowing. Mild facet joint arthropathy. Mild spinal canal narrowing. L3-L4: Intervertebral mild disc degeneration. Broad-based posterior disc bulge. Bilateral moderate neural foraminal narrowing. Moderate spinal canal stenosis. Mild facet joint arthropathy. L4-L5: Intervertebral disc degeneration. Broad-based posterior disc bulge. Moderate to severe spinal canal stenosis. Advanced left facet joint arthropathy. Moderate neural foraminal narrowing. L5-S1: Intervertebral disc degeneration. Broad-based posterior disc bulge. Moderate spinal canal stenosis. Bilateral moderate neural foraminal narrowing. No acute fractures. Vertebral body height is preserved. MR/MR lumbar spine wo con IMPRESSION: 1. Moderate to severe spinal canal stenosis at L4-L5. Moderate spinal canal stenosis at L3-L4. 2. Advanced left L4-L5 facet joint arthropathy. 3. Other findings as described. Electronically authenticated by: ROHAN BEGUM Date: 01/29/2024 15:25
== END 2024-01-29 06:41 | disposition home or self-care (01) ==
LOC: MRI 06:40
PROVIDERS: Visit Provider Anesthesiology Pain Medicine
DX: M96.1 Postlaminectomy syndrome, not elsewhere classified (principal); M48.062 Spinal stenosis, lumbar region with neurogenic claudication
CPT/HCPCS: 72148

== ENCOUNTER 2024-02-12 11:33 | Outpatient (OUT) | payer MEDICARE, MEDICAID, SELFPAY ==
--- NOTE | 2024-02-12 | CONS_ITS ---
PROCEDURE DATE: 02/12/2024 PROCEDURE: 1. Trigger point injection right erector spinae muscle at the L4 level. 2. Right gluteus medius trigger point injection. PREOPERATIVE DIAGNOSIS: 1. Pain secondary to myalgia of right erector spinae and right gluteus medius muscle. 2. Sprain/strain injury and spasm. POSTOPERATIVE DIAGNOSIS: 1. Pain secondary to myalgia of right erector spinae and right gluteus medius muscle. 2. Sprain/strain injury and spasm. SOLUTION USED FOR INJECTION: 2 mL of 2% lidocaine, 2 mL of 0.25% Marcaine and 10 mg of Kenalog, total of 5 mL and 2.5 mL used for injection at each muscle group. IMMEDIATE COMPLICATIONS: None. PROCEDURE: After informed consent was obtained from the patient, placed in the flexed forward position. Skin overlying the area was prepped with alcohol. 25 gauge 1 ?? needle was inserted into the right lumbar erector spinae muscle at the L4 level. Needle tip advanced until there was a mild twitch response, at which point we injected approximately 2.5 mL of solution. This was repeated in a similar fashion into the right gluteus medius muscle. No indication of intravascular, intraneural needle tip placement or injection was noted. She reports a dramatic reduction in pain post procedurally. MEGAN
--- OUTSIDE RECORDS SUMMARY | 2024-02-12 11:38 | XMS_ITS | CCD ---
Author Organization [facility] ion [facility] Care Team Providers Care Inside Technical Sales Representative Name Role Phone ELGAFY, HOMERO K Unavailable [...] Admitting Unavailable PETERS ., [place] Consulting Unavailable [facility] Primary [facility] Unava ilable [facility] Consulting Unava ilable LUKE ., DR CADENCE Hsu Attending Unavailable [facility] Unava ilable PETERS ., [place] Consulting Unavailable LUKE ., DR CADENCE Hsu Admitting Unavailable [facility] Unava ilable EDITH, DR SOTOMAYOR Attending Unavailable EDITH, DR SOTOMAYOR Admitting Unavailable PAY ., DR GRIMM Consulting Unavailable EDITH, DR SOTOMAYOR Consulting Unavailable TROTTI, GIROLAMO Consulting Unavailable [facility] Unava ilable MARKER ., DR MENDOZA Attending Unavailable MARKER ., DR MENDOZA Admitting Unavailable MARKER ., DR MENDOZA Consulting Unavailable RISHABH MORENO Consulting Unavailable [facility] Unava ilable PETERS ., [place] Consulting Unavailable LUKE ., DR CADENCE Hsu Admitting Unavailable LUKE ., DR CADENCE Hus Attending Unavailable [facility] Unava ilable PETERS ., [place] Consulting Unavailable LUKE ., DR CADENCE Hsu Attending Unavailable LUKE ., DR CADENCE Hsu Admitting Unavailable LUKE ., DR CADENCE Hsu Consulting Unavailable [facility] Unava ilable LUKE ., DR CADENCE Hsu Attending Unavailable LUKE ., DR CADENCE Hsu Admitting Unavailable [facility] Unava ilable LORRAINE .[place] Consulting Unavailable LUKE ., DR CADENCE Hsu Attending Unavailable LUKE ., DR CADENCE Hsu Admitting Unavailable LUKE ., DR CADENCE Hsu Consulting Unavailable LUKE ., DR CADENCE Hsu Attending Unavailable [facility] Unava ilable LUKE ., DR CADENCE Hsu Admitting Unavailable [facility] Unava ilable LAKSHMIPATHY ., NARENDRANATH Admitting [...] source) penicillin Drug Allergy 6 AOF [facility] Repository (4 sources) prochlorperazine; Translations: [Compazine] Drug Allergy 4 AOF [facility] Repository (12 sources) Penicillins; Translations: [penicillins] Drug allergy 4 Eruption of skin (disorder), Hives, Rash [facility] (6 sources) Prochlorperazine; Translations: [prochlorperazine] Drug Allergy 4 Unknown (qualifier value), Eruption of skin (disorder), Anxiety [facility] (5 sources) Prochlorperazine; Translations: [PROCHLORPERAZINE EDISYLATE] Drug Allergy [address] [facility] (1 source) Prochlorperazine Drug Allergy 2 [facility] Repository Medications Current Medications Medication Drug [...] thereafter, # 42.5 gm, Refills(s) 11, Pharmacy: [facility], 163, cm, 04/14/21 10:37:00 [...] 0 04/22/2023 Active fluticasone 0.05 mg/inh Nasal Whick (1 source) Start: 04-14-2021 fluticasone 0.05 mg/inh Nasal Whick Refill(s) 0 Start Date: 04/14/21 Status: Ordered [...] 01-25-2021 Chronic Other aftercare (1 source) Other intermediate frame tender (current) drug therapy; Translations: [OTH NURSING HOME CURRENT DRUG THERAPY] Onset: 09-06-2022 Episodic Other [...] Range Facility MAMM SCREENING BILATERAL W C smalltalk developer 11-06-2023 MAMM SCREENING BILATERAL W CAD MAMM [...] AM 1 b MAMM 1 YR Normal [facility] MR Ankle - left WO contrasto [...] fracture deformity of the proximal 5th metatarsal. [facility] RIS CONSOLIDATED EXAMINATION: MRI OF THE [...] ankle and foot. No organized fluid collection. [facility] RIS Scottie Rice MD - 09/27/2023 [...] fracture deformity of the proximal 5th metatarsal. [facility] Radiology Study observation (narrative) [facility] MR Ankle - left WO contrastO rdered By: Scottie Whitmore on 09-27-2023 [facility] Work Phone: MRI ANKLE LEFT WO CONTRASTon [...] Scottie Whitmore MD 09/27/23 Final result Normal [facility] XR ANKLE LT MIN 3 VWSon [...] Baxter MD on 08/30/2023 10:54 PM Normal [facility] Physician Referralon 17-2 023 Physician Referral [id number] 1 [id number] Normal [facility] CNOVon 11-20-2022 CNOV Office Visit (ORTHMN ) FREDI MCKEE ([id number]) 1965 F [place] Date Time Provider Department [...] exercise. 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 We discuss our Get Ready program. 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 Normal [facility] XR KNEE 4V AP/PA/LAT/PINA Chicas 11-20-2022 [...] 4V AP/PA/LAT/MERCH ARON COMPARISON: None RESULT: Marked etje-sh-ukyn medial compartment narrowing bilaterally with genu varus deformities. Tricompartmental osteophytes bilaterally. No fractures. No joint effusions. 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 No other significant abnormality. --- IMPRESSION: MARKED DEGENERATIVE CHANGES IN THE MEDIAL COMPARTMENTS BILATERALLY Special Services Agent: LENNY Transcribe Date/Time: Nov 20 2022 8:42A Dictated by : ERASMO VALENTE MD This examination was interpreted and the report reviewed and electronically signed by: ERASMO VALENTE MD on Nov 20 2022 8:43AM EST [id number] N Normal [facility] XR KNEE GENERAL 4V AP BOTH/P A BOTH/LAT/MERC BILATERALon 11-20-2022 [facility] BNPon 09-05-2022 Natriuretic peptide B (Bld) [Mass/Vol] 29.0 pg/mL Normal <=900.0 [facility] Comment on above: Performed By: #### H STROPN, BNP, CMP ####[facility] [address] [place], [place] [address]AtDr. Merlene Carr CBC AUTO DIFFon 09-05-2022 BASO # 0.1 103/ul Normal 0.0-0.1 [facility] Comment on above: Performed By: #### C BC #### [facility] [address] [place], [place] [address] Dr. Merlene Carr Basophils/100 WBC (Bld) 0.5 % Normal 0.2-2.0 [facility] Comment on above: Performed By: #### C BC #### [facility] [address] [place] [address] Dr. Merlene Carr EO # 0.6 103/ul Normal 0.0-0.7 [facility] Comment on above: Performed By: #### C BC #### [facility] [address] [place] [address] Dr. Merlene Carr Eosinophils/100 WBC (Bld) 4.9 % Normal 0.9-7.0 [facility] Comment on above: Performed By: #### C BC #### [facility] [address] [place] [address] Dr. Merlene Carr Erythrocyte distribution width (RBC) [Ratio] 14.0 % Normal 11.0-15.0 [facility] Comment on above: Performed By: #### C BC #### [facility] [address] [place] [address] Dr. Merlene Carr Hematocrit (Bld) [Volume fraction] 41.4 % Normal 36.0-48.0 [facility] Comment on above: Performed By: #### C BC #### [facility] [address] [place] [address] Dr. Merlene Carr Hemoglobin (Bld) [Mass/Vol] 13.0 g/dL Normal 12.0-16.0 [facility] Comment on above: Performed By: #### C BC #### [facility] [address] [place] [address] Dr. Merlene Carr IG # 0.05 10e3/ul Critically high 0.00-0.03 [facility] Comment on above: Performed By: #### C BC #### [facility] [address] [place] [address] Dr. Merlene Carr IG % 0.4 % Normal 0.0-0.5 [facility] Comment on above: Performed By: #### C BC #### [facility] [address] [place] [address] Dr. Merlene Carr LYMPH # 3.2 103/ul Normal 1.2-3.8 [facility] Comment on above: Performed By: #### C BC #### [facility] [address] [place] [address] Dr. Merlene Carr Lymphocytes/100 WBC (Bld) 27.2 % Normal 20.5-60.0 [facility] Comment on above: Performed By: #### C BC #### [facility] [address] [place] [address] Dr. Merlene Carr MANUAL DIFF REQ NO Normal [facility] Comment on above: Performed By: #### C BC #### [facility] [address] [place] [address] Dr. Merlene Carr MCH (RBC) [Entitic mass] 26.7 pg Normal 26.7-34.0 [facility] Comment on above: Performed By: #### C BC #### [facility] [address] [place] [address] Dr. Merlene Carr MCHC (RBC) [Mass/Vol] 31.4 g/dL Normal 29.9-35.2 [facility] Comment on above: Performed By: #### C BC #### [facility] [address] [place] [address] Dr. Merlene Carr MCV (RBC) [Entitic vol] 85.0 fL Normal 81.0-99.0 [facility] Comment on above: Performed By: #### C BC #### [facility] [address] [place] [address] Dr. Merlene Carr MONO # 1.0 103/ul Critically high 0.3-0.8 [facility] Comment on above: Performed By: #### C BC #### [facility] [address] [place] [address] Dr. Merlene Carr Monocytes/100 WBC (Bld) 8.8 % Normal 1.7-12.0 [facility] Comment on above: Performed By: #### C BC #### [facility] [address] [place] [address] Dr. Merlene Carr NEUT # 6.9 103/ul Critically high 1.4-6.5 [facility] Comment on above: Performed By: #### C BC #### [facility] [address] [place] [address] [address] Merlene Carr Neutrophils/100 WBC (Bld) 58.2 % Normal 43.0-75.0 [facility] Comment on above: Performed By: #### C BC #### [facility] [address] [place] [address] [address] Merlene Carr Platelet mean volume (Bld) [Entitic vol] 10.2 fL Normal 9.5-13.5 [facility] Comment on above: Performed By: #### C BC #### [facility] [address] [place] [address] [address] Merlene Carr PLT 392 103/ul Normal 150-450 [facility] Comment on above: Performed By: #### C BC #### [facility] [address] [place] [address] [address] Merlene Carr RBC 4.87 106/ul Normal 4.20-5.40 [facility] Comment on above: Performed By: #### C BC #### [facility] [address] [place] [address] [address] Merlene Carr WBC 11.8 103/ul Critically high 4.0-11.0 [facility] Comment on above: Performed By: #### C BC #### [facility] [address] [place] [address] [address] Merlene Carr CULTURE SPUTUMon 09-05-2022 CULTURE SPUTUM Culture Observations : NORMAL RESPIRATORY MARGARITO. FINAL TO FOLLOW. Normal [facility] Comment on above: Performed By: #### S PUTCX #### [facility] [address] [place] [address] [address] Merlene Carr PROF 14(COMP METB)on 023 Albumin [Mass/Vol] 3.6 g/dL Normal 3.4-5.0 [facility] Comment on above: Performed By: #### H STROPN, BNP, CMP ####[facility] [address] [place] [address]Dr. Merlene Carr Albumin/Globulin [Mass ratio] 0.9 {ratio} Normal [facility] Comment on above: Performed By: #### H STROPN, BNP, CMP ####[facility] [address] [place] [address]Dr. Merlene Carr ALP [Catalytic activity/Vol] 74 U/L Normal 46-116 [facility] Comment on above: Performed By: #### H STROPN, BNP, CMP ####[facility] [address] [place] [address]Dr. Merlene Carr ALT [Catalytic activity/Vol] 35 U/L Normal 14-59 [facility] Comment on above: Performed By: #### H STROPN, BNP, CMP ####[facility] [address] [place] [address]Dr. Merlene Carr Anion gap [Moles/Vol] 16.8 mmol/L Normal [facility] Comment on above: Performed By: #### H STROPN, BNP, CMP ####[facility] [address] [place], [place] [address]Dr. Merlene Carr AST [Catalytic activity/Vol] 24 U/L Normal 15-37 [facility] Comment on above: Performed By: #### H STROPN, BNP, CMP ####[facility] [address] [place] [address]Dr. Merlene Carr Bilirubin [Mass/Vol] 0.2 mg/dL Normal 0.2-1.0 [facility] Comment on above: Performed By: #### H STROPN, BNP, CMP ####[facility] [address] [place] [address]Dr. Merlene Carr Calcium [Mass/Vol] 9.7 mg/dL Normal 8.5-10.1 [facility] Comment on above: Performed By: #### H STROPN, BNP, CMP ####[facility] [address] [place] [address]Dr. Merlene Carr Chloride [Moles/Vol] 106 mmol/L Normal 98-107 [facility] Comment on above: Performed By: #### H STROPN, BNP, CMP ####[facility] [address] [place] [address]Dr. Lisaaurora Bruno CO2 [Moles/Vol] 25.3 mmol/L Normal 21.0-32.0 [facility] Comment on above: Performed By: #### H STROPN, BNP, CMP ####[facility] [address] [place] [address]Dr. Merlene Carr Creatinine [Mass/Vol] 1.14 mg/dL Critically high 0.55-1.02 [facility] Comment on above: Performed By: #### H STROPN, BNP, CMP ####[facility] [address] [place] [address]Dr. Merlene Carr EGFR-AF COLOMBIAN 60 mL/min/1.73m2 Normal >=60 [facility] Comment on above: Performed By: #### H STROPN, BNP, CMP ####[facility] [address] [place], [place] [address]Dr. Merlene Carr EGFR-NON AF COLOMBIAN 49 mL/min/1.73m2 Critically low >=60 [facility] Comment on above: Performed By: #### H STROPN, BNP, CMP ####[facility] [address] [place], [place] [address]Dr. Merlene Carr Globulin (S) [Mass/Vol] 4.2 g/dL Normal [facility] Comment on above: Performed By: #### H STROPN, BNP, CMP ####[facility] [address] [place] [address]Dr. Merlene Carr Glucose [Mass/Vol] 95 mg/dL Normal 74-106 [facility] Comment on above: Performed By: #### H STROPN, BNP, CMP ####[facility] [address] [place], [place] [address]Dr. Merlene Carr Potassium [Moles/Vol] 4.1 mmol/L Normal 3.5-5.1 [facility] Comment on above: Performed By: #### H STROPN, BNP, CMP ####[facility] [address] [place] [address]Dr. Merlene Carr Protein [Mass/Vol] 7.8 g/dL Normal 6.4-8.2 [facility] Comment on above: Performed By: #### H STROPN, BNP, CMP ####[facility] [address] [place] [address]Dr. Merlene Carr Sodium [Moles/Vol] 144 mmol/L Normal 136-145 [facility] Comment on above: Performed By: #### H STROPN, BNP, CMP ####[facility] [address] [place] [address]Dr. Merlene Carr Urea nitrogen [Mass/Vol] 10.0 mg/dL Normal 7.0-18.0 [facility] Comment on above: Performed By: #### H CARLOSPN, BNP, CMP ####[facility] [address] [place] [address]Dr. Merlene Carr Urea nitrogen/Creatinine [Mass ratio] 8.8 mg/mg Normal [facility] Comment on above: Performed By: #### H STROPN, BNP, CMP ####[facility] [address] [place] [address]DrMatthew Carr SPUTUM GRAM STAINon 09-06-19 COMMENTS [facility] Comment on above: Performed By: #### S PUTGS #### [facility] [address] [place] [address] [address] Merlene Carr DIPHTHEROIDS Normal [facility] Comment on above: Performed By: #### S PUTGS #### [facility] [address] [place] [address] [address] Merlene Carr EPITHELIALS >25 Normal [facility] Comment on above: Performed By: #### S PUTGS #### [facility] [address] [place] [address] [address] Merlene Carr FUNGAL ELEMENTS Normal [facility] Comment on above: Performed By: #### S PUTGS #### [facility] [address] [place] [address] [address] Merlene Carr GRAM NEG BACILLI Normal [facility] Comment on above: Performed By: #### S PUTGS #### [facility] [address] [place] [address] [address] Merlene Carr GRAM NEG DIPPLOCOCCI Normal [facility] Comment on above: Performed By: #### S PUTGS #### [facility] [address] [place] [address] [address] Merlene Carr GRAM POS BACILLI Normal [facility] Comment on above: Performed By: #### S PUTGS #### [facility] [address] [place] [address] [address] Merlene Carr GRAM POSITIVE COCCI FEW Normal [facility] Comment on above: Performed By: #### S PUTGS #### [facility] [address] [place] [address] [address] Merlene Carr WBC (Bld) [#/Vol] 10*3/uL Normal [facility] Comment on above: Performed By: #### S PUTGS #### [facility] [address] [place] [address] [address] Merlene Carr TROPONIN, HIGH SENSITIVITYon 09-05-2022 HSTROP 9.6 pg/mL Normal 4.0-51.3 [facility] Comment on above: Result Comment: CUT- OFF POINTS HAVE BEEN ESTABLISHED BASED ON THE FOURTH UNIVERSAL DEFINITIONS OF MYOCARDIAL INFARCTION. THE UPPER REFERENCE LIMIT (URL) OF TROPONIN, DEFINED THE 99TH PERCENTILE OF cTnI DISTRIBUTION IN A REFERENCE POPULATION, HAS BEEN CONFIRMED THE DECISION THRESHOLD FOR IN DIAGNOSIS. Performed By: #### H STROPN, BNP, CMP ####[facility] [address] [place] [address]Dr. Merlene Carr XR CHEST 2 Von 09-05-2022 [...] RISHABH MORENO Date: 2022-09-04 22:55 Normal [facility] Coding Summary.on 08-05-2022 Coding Summary. CD:[id number] W w+PGhlYWQ+FA1GMLHfQ81 prFOuoG0nX6UWMXrZHqfq QZJVRVsPUzXzuvFpCO2ns XNjZXJu IC8+BX4bQSXoAliuqHVwa 1Z1dJA6V70xgb3jMSnwxM S0EFUnMhMoxteed4nwfJe 6IDcuNmluOyBt BMKtlD06TKD6yZ66Rl63z TWlrDYbi1hjqBc8ZlBfQL RlYXK8dRotSQgzl2GrMYA pY03roHXnz8Q8 LTTzyAosuFGsAuZhbCP3j Z3qHMhmwikbe4acwvziVy k1ez98nIRss4D3mCW8F1O udjB7JRGoeLAi LzqfzFPOlM9dyqeei0xau ccfKwMsBMBvGAe0TNk6GX HprOawVqVbKD46PDT9HID gijLuH8GaCTHs nYxqCqB6v8T0Di7QQ8AMH cuyV5KHNFHMQCpbcKZ+PC 53vo11B8ZvQkvtHos9XTS qPBL0sWO2hR7n EPYdDHsbo7G8gZP6T4Buk uPebs1ub9ghTKAzGBxdO2 6yaQRez0H2NDFyeKV5LCM ebPpdIxWamM61 Oyc+CYNlnVyqj5IfLttel 6zrk8xmhEj4KwjbPOEtbv ZjqBcnGCL2q8GxOu8jVIJ bmFC4bZT0rQ5i SrIbGyC4XUnbJ891HdFsy IPzHwueD24mE4SqgES+PH EgVer3JVTthAwhNN7qC9P hZGRpbmctbGVm zMyoFS1dVMEmhsxiMOEld I5bLMKeO1h2VpIsFtA5KM qlQ8XnSBRxhtszKo76tU7 pFtNjXmC9KKzc D1OrowC4XCYpbARgRHkdS KT6Z08zi8G5DULoMNMaGJ V2rAM7aC3dmMuapnaoyUS mdDsgdmVydGlj XWltHOqdJ227QVQrbQvoB kNvZGluZyBEYXRlOiAgMD QvMTUvMjAyMzwvdGQ+PHR tTQK1xYmyJBCw zUZaIFxjAp1bbLbwsEmvX H2sJDDjifjwIMPdiD2cYE JvuORhrUvqMI7aBGPwpwd yl205OjTaHBZ2 ZPCtnOKfG9BhdM7xQsYzH SVdEXRiT5LclQAsRCmiS9 58QCgvZfX7HJJkkdLdA6Y sLWFsaWduOiB0 y8C6Du0Cq5GobzlfI5Wzk BRuWqZwIooiNEi7Q9ZhSs wvdHI+LS50EMQsAK85BCp 0KGZ5dQooJSsx RPRjF8SobJ7eRxTkTBQeU GRkOyc+PHRhYmxlIHdpZH RoPScxMDAlJyBzdHlsZT0 cEt9rSYAoDUFb nUiuxRAlTxLdj3ybFKKaX RwvUG3kcObhI9YrzOV2SP Kzj2k9Ma42A48jD5YbkWO +PNCyrHN7mYU7 wR6kUmOoEgM0HBcoK203Q fAfvFBjYcisb2rog6fskA s2CfD1HJBzkqZbsGdgNIC 9n1YcMn66S38r IHdpZHRoPSIxNSUiIHZhb Qafmi5fvE0pYm5+PGNvbC W1yCW3nI7jGdGeLkE2JXk hQ111DjMgyDOo Avxtv8ian5gldYd0CoAyM PWtriRikBmcJCO2n0YqVh 24T7PawPdkl7YqEry5vf3 0lOLfm5B9vWH5 O0GxBJTdlsmdkHQnqEttG K5hMIWfiqqqSZOllM8jDC QjP2o9JgUgLcD9UZejE9O wcqS9ZRQyfPUi LBKeeSIHqY4rjrzmq4ysb ojbBdMgDTFbFAu5IOk8UW LlrYmaKqTkRKZ0AnS0UOG 8bFRrsB9muMeg bexhdM6hXns+NUM3nNWhz JRUJK1tWmdtzQC+PHRkIH F6dTkzFPtjPKFipP6fQNC yY7u3ZpIuNoH2 TWbaH3MtqkM9AKFshTJcQ EKafNQGpE9huucmh7ajgg dlUrVrVNEzJKm3LEv4JFA saWduOiBsZWZ0 VvH9JBM8uZWedW9toKarm fafsK9xMvk+QmlydGggRG X8QQk8F4RpRxk4PFOadWl mMM8izFLtNLvo Mc0lbVfiwXroXV3jCAWym jqxt528FeCvq7drGDSlbM VbQDkvAVV8R37tu4J6PYV vNSDvVNE6dBI9 lS2diWtdbfumiWYcsFqau dQwbKhbKRipYHfrU367XQ XdcJkqJrIyCLg5U7FcRgf 1SDPqcIcoLV1f vZLdERlhKy0xoAvzwVvsG M3zOCIvopffw254GbNlp0 qaHAYbeNRaTHnuDBB2L44 kh4S1DIEfYTEo CYI4dCG7rL2ldEelhilze GVmdDsgdmVydGljYWwtYW zvZ738IHIywTuwZbMebXy 9V2KkYnb7DXBi dHseDW9xgGRoNXeuJa4fi TfycBwyJV2lVABvvnimp4 29AiUqo4yxPXFcuRQsRQq mYTP0M07js2E1 RBHlHBNxGSS1cZK7bU5ah GlnbjogbGVmdDsgdmVydG rpAKkdYCdwS397ZCKzbPz nPlBhdGllbnQg NOxhYFn7U8BsRthbxGQ+P G02NGIqHG47cPQuiODcr0 scgDx2PmErZTUhTVZ7eWq uSTnpo1QyTXLv S60efMFna4B5DPBfwAarl YKbErHgfLD9oE5kCWvujw fui8wqoffgXopvs7yeau4 6xY49E03wYAas ZHRoPSIzMCUiIHZhbGlnb h3knX0lQw4+OZJyxZO5jE R4vB0lYQUmYzR3GGwdX18 9InRvcCIvPjxj a8szy1ltfAv4PpK0JIHkb bNtlJdzPCS5p2SeDg15C6 9sIHdpZHRoPSIyMCUiIHZ ikKmuih9tpT7x Ii8+QVRdtHU2oVG8pG9kU fTaEkY3JYrhK053LmAdcK XqFiipS45iX4SpgKR+PHR wFkp1ILPpqPcm YR5mqTEtASpzZr3mLLX3M zFwCuLlGVtdZ5UpTLKyzt nnrzcjoTS6QWNqZHCceV5 1Uv4plOygYIHu bMNBlQ6kjaure6oibawhA bEvWTAqRZb0XBt3JTOmeS qhDuUfNOW2TlO8STY2dHB igR4xmIocaszz tL5hA7TrMIJfezoiEu19g M9oCvDsRfE1IYkaBav+Sk 9ITlNPTiwgWkVTVEEgQjw vdGQ+PHRkIHN0 uSikECweSIGunY7tZQOjW 5l6EfCvUhI3BTfrP3OxQF NjbnshSh04cE8yDkAwLxX 7CJrlY6WzdmA5 GAFraMElEGumPST1A81dr 0D8FUFeDGDxVEN2iJF4cA 1hbGlnbjogbGVmdDsgdmV ydGljYWwtYWxp O438VMGmeLuwBgQfIyX7F vI1Lgw7X2FiNpp7WWPlnJ ahKM5uxIZsMFxrNf7gsNl dkGpqLW1xKZEt gmprTCQagC9sEDUgcXVqn YfiAZ4kAAMyxvgas848Dh DgYYG4KHShrTQxT5LcjK2 yOiAjMDAwMDAw W0WwhOWcWYitP095PKfaT bJ4YNUtvfExX9HlUCKjaF edZzX8v0G6Qc37YXOQHCY yczwvdGQ+PHRk NVU5yPksSPltWUDktO0nZ WBcX5p2BiIcDtB0FPmlX3 BmYDDcctutHt24gR4oXyP cSaY1JSihZ6Dh jtF4DCUelGHvLEtlRXD0F 38em4R5LFPmKGQtYQM8dZ O5rG1kpVcudlavbECfdJi gdmVydGljYWwt KWfgB537YKYnmLvcGsUwf WFsZTwvdGQ+ZSNrZWR9nL npHYanQDWlaZ5iCFAxM8n 2HiDwAqU5YBce C5JwJYVrqtbnWu56xE9xL nMqGvI4AWamW9VtxlL0DB VukCDaDDmfMLC7Q36rb8M 2HMOmZEKiXEL3 wVO0yZ9ttLgalbsduYGnb DsgdmVydGljYWwtYWxpZ2 61SBGleJieUr92qHRrhKe gczE4M2TzYicw dHI+RW37TDQuQB29jLWbt FBzb7wbrCh4TcUxYNKyTN H0eVifHMefl1WkNLYwK80 ydPZbm5N0AQVv kJtozDNcCvObaWP8fB1zG Ujnodeiu3ptuqamMcxrt9 uiuk81wW09G12lOGweXDX oPSIzMCUiIHZh rUohsh3khS0jZn5+PGNvb BY2sVX1cO8uUjEoQdU9RH dbP371MdWgmYKyOjabr0u sr8hgiCi4NwHa IPFosiEirGuzIJF4n6UsK v14C22vGLrwYPLsHYEgSH PqHDBpjObbcj9qkL8wQp0 +BK1wd9uixg98 aZ53jZN+KKJaLUY3kCrnT NbwRHKncB1iETfoUrV3CP LfKsTbcX98fLAyJUkyJu1 piZqriGqlXG5i ZQIjbiqsz488DlFhk4iaH AIdxKLfWUhzDSQ5T64ph6 H3BFKeUMVnUGQ6dUG1gW6 hbGlnbjogbGVm dDsgdmVydGljYWwtYWxpZ 182ZRIedKenCyAefORcH5 dwzgTKOP7jFgnqjCH+PHR uPLV7lKadYGuv BRTkbA8bMMTgG0x7YeYeN iJ9IKueF2AnrxW6BHWhoR QySYLleMDDkC2ldhfpg7f vcjogIzAwMDAw JAd0CEt9IRWaqCtbZoQeK QT8HuB6DOI7cLOemC6cnZ iuxfkbsQ9bFzy+RklOOjw vdGQ+PHRkIHN0 vMbeDGxyUIRovD5kGBYfS 7h6LvWcCyE1VAswK8Zuxl C9JRKnbETfDSEzjGVKoG1 kgsher3qmckcf NfFkFUVvGWw5TAa6ECVgy PctIzVbSWT5MmF0YVK4pS WfjH5epQmcryvkqJ5cPqd +TVJOOjwvdGQ+ WOUeFOZ3mWcvYWpvNFAdg F3bNEQkQ3m8LeLpNlA4QA twW0KrtlT3BOWuyTLtXZN piPQOzY4rxdld s8grqzwdBiOvLIVwGNw7H Xj4UBQwoWpiKmPwVOO6Oo G3MFP5kFDtfJ7shCahhta ytG3qXzv+UGF5 NYP5TC92TP64B4QaOjfvf GFibGU+PHRhYmxlIHdpZH RoPScxMDAlJyBzdHlsZT0 eLl7cXCXdYKAg bGxhcHNl (more content not included)... [facility] [facility] CT Maxillofacial w/o Contras ton 07-31-2022 [...] MD Transcribed by: ABNER Technologist: RYDER Normal [facility] Consent for Treatmenton 07-22 Consent for Treatment [id number]:127 [facility] Physician Orderon 07-25-2022 Physician Order [id number]:127 Normal [facility] Physician Orderon 06-26-2022 Physician Order [id number] .[id number]:127 Normal [facility] XR CHEST 2 Von 04-19-2022 XR [...] by: Jorden STALEY Date: 2022-04-19 19:45 Normal [facility] Q - ALLERGEN INTERPon 2020 INTERPRETATION SEE NOTE Normal [facility] Director/Finance Comment on above: Order Comment: [facility] performed at: [facility], [employer], [address] [place] [address], [address] [place] [address], [phone], Tire Duster: Velasquez Caldwell MD [facility] Collection Date/Time: [facility] [...] analytical performance characteristics have been determined by [employer]. It has not been cleared or approved by the U.S. Food and Drug Administration. This assay has been validated pursuant to the CLIA regulations and is used for clinical purposes. Performed By: #### % SBRAST, [id number] #### [facility] Default [address] [place] [address] Q - RESP ALLERGY PROFILE REG ION Von 04-11-2021 ALTERNARIA ALTERNATA (M6) IGE <0.10 Normal [facility] Specialist Comment on above: Order Comment: [facility] performed at: [employer], [address] [place] [address], [address] [place] [address], [address] [place] [address], Tire Duster: Velasquez Caldwell MD [facility] Collection Date/Time: [facility] Results Received Date/Time: [facility] Reported Date/Time: Performed By: #### % SBRAST, [id number] #### [facility] Default [address] [place] [address] ASPERGILLUS FUMIGATUS (M3) IGE <0.10 Normal [facility] Specialist Comment on above: Order Comment: [facility] performed at: [employer] [facility], [address] [place] [address], [address] [place] [address], [address] [place] [address], Tire Duster: Velasquez Caldwell MD [facility] Collection Date/Time: [facility] Results Received Date/Time: [facility] Reported Date/Time: Performed By: #### % SBRAST, [id number] #### [facility] Default [address] [place] [address] BERMUDA GRASS (G2) IGE <0.10 Normal [facility] Specialist Comment on above: Order Comment: [facility] performed at: [employer] [facility], [address] [place] [address], [address] [place] [address], [address] [place] [address], Tire Duster: Velasquez Caldwell MD [facility] Collection Date/Time: [facility] Results Received Date/Time: [facility] Reported Date/Time: Performed By: #### % SBRAST, [id number] #### [facility] Default [address] [place] [address] BIRCH (T3) IGE <0.10 Normal [facility] Specialist Comment on above: Order Comment: [facility] performed at: [employer], [employer] [facility], [address], [address] [place] [address], [address] [place] [address], Tire Duster: Velasquez Caldwell MD [facility] Date/Time: [facility] Results Received Date/Time: [facility] Reported Date/Time: Performed By: #### % SBRAST, [id number] #### [facility] Default [address] [place] [address] CAT DANDER (E1) IGE <0.10 Normal [facility] Comment on above: Order Comment: [facility] Testing performed at: [employer], [facility], [address] , [address] [place] [address], [address] [place] [address], Tire Duster: Velasquez Caldwell MD [facility] Collection Date/Time: [facility] Results Received Date/Time: [facility] Reported Date/Time: Performed By: #### % SBRAST, [id number] #### [facility] Default [address] [place] [address] CLADOSPORIUM HERBARUM (M2) IGE <0.10 Normal [facility] Specialist Comment on above: Order Comment: [facility] performed at: [facility], [employer] [facility], [address] , [address] [place] [address], [address] [place] [address], Tire Duster: Velasquez Caldwell MD [facility] Collection Date/Time: [facility] Results Received Date/Time: [facility] Reported Date/Time: Performed By: #### % SBRAST, [id number] #### [facility] Default [address] [place] [address] CLASS 0/1 Normal [facility] Specialist Comment on above: Order Comment: [facility] Testing performed at: [employer], [employer] [facility], [address] [place] [address], [address] [place] [address], [address] [place] [address], Tire Duster: Velasquez Caldwell MD [facility] Date/Time: [facility] Results Received Date/Time: [facility] Reported Date/Time: Performed By: #### % SBRAST, [id number] #### [facility] Default [address] [place] [address] CLASS 0 Normal [facility] Specialist Comment on above: Order Comment: [facility] performed at: [facility], [facility], [address] [facility], [address] [place] [address], [address] [place] [address], Tire Duster: Velasquez Caldwell MD [facility] Date/Time: [facility] Results Received Date/Time: [facility] Reported Date/Time: Performed By: #### % SBRAST, [id number] #### [facility] Default [address] [place] [address] COCKROACH (I6) IGE <0.10 Normal [facility] Comment on above: Order Comment: [facility] performed at: [facility], [employer] [facility], [address] [place] [address], [address] [place] [address], [address] [place] [address], Tire Duster: Velasquez Caldwell MD [facility] Date/Time: [facility] Results Received Date/Time: [facility] Reported Date/Time: Performed By: #### % SBRAST, [id number] #### [facility] Default [address] [place] [address] COMMON RAGWEED (SHORT) (W1) IGE <0.10 Normal [facility] Comment on above: Order Comment: [facility] Testing performed at: [employer], [employer] [facility], [address] [place] [address], [address] [place] [address], [address] [place] [address], Tire Duster: Velasquez Caldwell MD [facility] Date/Time: [facility] Results Received Date/Time: [facility] Reported Date/Time: Performed By: #### % SBRAST, [id number] #### [facility] Default [address] [place] [address] COTTONWOOD (T14) IGE <0.10 Normal [facility] Comment on above: Order Comment: [facility] Testing performed at: [facility], [employer] [facility], [address] [place] [address], [address] [place] [address], [address] [place] [address], Tire Duster: Velasquez Caldwell MD [facility] Collection Date/Time: [facility] Results Received Date/Time: [facility] Reported Date/Time: Performed By: #### % SBRAST, [id number] #### [facility] Default [address] [place] [address] DERMATOPHAGOIDES FARINAE (D2) IGE 0.11 kU/L [facility] Comment on above: Order Comment: [facility] performed at: [facility], [employer] [facility], [address] [place] [address], [address] [place] [address], [address] [place] [address], Tire Duster: Velasquez Caldwell MD [facility] Date/Time: [facility] Results Received Date/Time: [facility] Reported Date/Time: Performed By: #### % SBRAST, [id number] #### [facility] Default [address] [place] [address] DERMATOPHAGOIDES PTERONYSSINUS (D1) IGE 0.14 kU/L [facility] Comment on above: Order Comment: [facility] Testing performed at: [facility], [employer] [facility], [address] [facility], [address] [place] [address], [address] [place] [address], Tire Duster: Velasquez Caldwell MD [facility] Collection Date/Time: [facility] Results Received Date/Time: [facility] Reported Date/Time: Performed By: #### % SBRAST, [id number] #### [facility] Default [address] [place] [address] DOG DANDER (E5) IGE <0.10 Normal [facility] Specialist Comment on above: Order Comment: [facility] Testing performed at: [employer], [employer] [facility], [address] , [address] [place] [address], [address] [place] [address], Tire Duster: Velasquez Caldwell MD [facility] Date/Time: [facility] Results Received Date/Time: [facility] Reported Date/Time: Performed By: #### % SBRAST, [id number] #### [facility] Default [address] [place] [address] ELM (T8) IGE <0.10 Normal [facility] Specialist Comment on above: Order Comment: [facility] Testing performed at: [facility], [employer] [facility], [address] , [address] [place] [address], [address] [place] [address], Tire Duster: Velasquez Caldwell MD [facility] Collection Date/Time: [facility] Results Received Date/Time: [facility] Reported Date/Time: Performed By: #### % SBRAST, [id number] #### [facility] Default [address] [place] [address] HICKORY/PECAN TREE (T22) IGE <0.10 Normal [facility] Director/Finance Comment on above: Order Comment: [facility] Testing performed at: [facility], [employer] [facility], [address] , [address] [place] [address], [address] [place] [address], Tire Duster: Velasquez Caldwell MD [facility] Collection Date/Time: [facility] Results Received Date/Time: [facility] Reported Date/Time: Performed By: #### % SBRAST, [id number] #### [facility] Default [address] [place] [address] IMMUNOGLOBULIN E 83 kU/L Normal [facility] Director/Finance Comment on above: Order Comment: [facility] Testing performed at: [employer], [address], [address] [place] [address], [address] [place] [address], Tire Duster: Velasquez Caldwell MD [facility] Collection Date/Time: [facility] Results Received Date/Time: [facility] Reported Date/Time: Performed By: #### % SBRAST, [id number] #### [facility] Default [address] [place] [address] MAPLE (BOX ELDER) (T1) IGE <0.10 Normal [facility] Director/Finance Comment on above: Order Comment: [facility] performed at: [facility], [facility], [address] , [address] [place] [address], [phone], Tire Duster: Velasquez Caldwell MD [facility] Date/Time: [facility] Results Received Date/Time: [facility] Reported Date/Time: Performed By: #### % SBRAST, [id number] #### [facility] Default [address] [place] [address] MOUNTAIN CEDAR (T6) IGE <0.10 Normal [facility] Director/Finance Comment on above: Order Comment: [facility] Testing performed at: [facility], [employer] [facility], [address], [address] [place] [address], [phone], Tire Duster: Velasquez Caldwell MD [facility] Collection Date/Time: [facility] Results Received Date/Time: [facility] Reported Date/Time: Performed By: #### % SBRAST, [id number] #### [facility] Default [address] [place] [address] MOUSE URINE PROTEINS (E72) IGE <0.10 Normal [facility] Director/Finance Comment on above: Order Comment: [facility] Testing performed at: [facility], [employer] [facility], [address] , [address] [place] [address], [phone], Tire Duster: Velasquez Caldwell MD [facility] Collection Date/Time: [facility] Results Received Date/Time: [facility] Reported Date/Time: Performed By: #### % SBRAST, [id number] #### [facility] Default [address] [place] [address] OAK (T7) IGE <0.10 Normal [facility] Director/Finance Comment on above: Order Comment: [facility] Testing performed at: [facility] [facility], [employer] [facility], [address] [facility], [address] [place] [address], [address] [place] [address], Tire Duster: Velasquez Caldwell MD [facility] Collection Date/Time: [facility] Results Received Date/Time: [facility] Reported Date/Time: Performed By: #### % SBRAST, [id number] #### [facility] Default [address] [place] [address] PENICILLIUM NOTATUM (M1) IGE <0.10 Normal [facility] Director/Finance Comment on above: Order Comment: [facility] Testing performed at: [facility], [employer] [facility], [address] [facility], [address] [place] [address], [address] [place] [address], Tire Duster: Velasquez Caldwell MD [facility] Collection Date/Time: [facility] Results Received Date/Time: [facility] Reported Date/Time: Performed By: #### % SBRAST, [id number] #### [facility] Default [address] [place] [address] ROUGH PIGWEED (W14) IGE <0.10 Normal [facility] Specialist Comment on above: Order Comment: [facility] Testing performed at: [facility], [employer] [facility], [address] [facility], [address] [place] [address], [address] [place] [address], Tire Duster: Velasquez Caldwell MD [facility] Collection Date/Time: [facility] Results Received Date/Time: [facility] Reported Date/Time: Performed By: #### % SBRAST, [id number] #### [facility] Default [address] [place] [address] PALESTINIAN THISTLE (W11) IGE <0.10 Normal [facility] Director/Finance Comment on above: Order Comment: [facility] Testing performed at: [facility], [employer] [facility], [address] [place] [address], [address] [place] [address], [address] [place] [address], Tire Duster: Velasquez Caldwell MD [facility] Collection Date/Time: [facility] Results Received Date/Time: [facility] Reported Date/Time: Performed By: #### % SBRAST, [id number] #### [facility] Default [address] [place] [address] SHEEP SORREL (W18) IGE 0.13 kU/L High [facility] Director/Finance Comment on above: Order Comment: [facility] Testing performed at: [facility], [employer] [facility], [address] [place] [address], [address] [place] [address], [address] [place] [address], Tire Duster: Velasquez Caldwell MD [facility] Collection Date/Time: [facility] Results Received Date/Time: [facility] Reported Date/Time: Performed By: #### % SBRAST, [id number] #### [facility] Default [address] [place] [address] SYCAMORE (T11) IGE 0.10 kU/L [facility] Specialist Comment on above: Order Comment: [facility] Testing performed at: [facility], [employer] [facility], [address] [place] [address], [address] [place] [address], [address] [place] [address], Tire Duster: Velasquez Caldwell MD [facility] Collection Date/Time: [facility] Results Received Date/Time: [facility] Reported Date/Time: Performed By: #### % SBRAST, [id number] #### [facility] Default [address] [place] [address] ANNE GRASS (G6) IGE <0.10 [facility] Specialist Comment on above: Order Comment: [facility] Testing performed at: [facility], [employer] [facility], [address] [place] [address], [address] [place] [address], [address] [place] [address], Tire Duster: Velasquez Caldwell MD [facility] Collection Date/Time: [facility] Results Received Date/Time: [facility] Reported Date/Time: Performed By: #### % SBRAST, [id number] #### [facility] Default [address] [place] [address] WALNUT TREE (T10) IGE <0.10 Normal [facility] Director/Finance Comment on above: Order Comment: [facility] Testing performed at: [facility], [employer] [facility], [address] [place] [address], [address] [place] [address], [address] [place] [address], Tire Duster: Velasquez Caldwell MD [facility] Collection Date/Time: [facility] Results Received Date/Time: [facility] Reported Date/Time: Performed By: #### % SBRAST, [id number] #### [facility] Default [address] [place] [address] WHITE NORBERTO (T15) IGE <0.10 Normal [facility] Specialist Comment on above: Order Comment: [facility] Testing performed at: [facility], [employer] [facility], [address] [place] [address], [address] [place] [address], [address] [place] [address], Tire Duster: Velasquez Caldwell MD [facility] Collection Date/Time: [facility] Results Received Date/Time: [facility] Reported Date/Time: Performed By: #### % SBRAST, [id number] #### [facility] Default [address] [place] [address] WHITE MULBERRY (T70) IGE <0.10 Normal [facility] Director/Finance Comment on above: Order Comment: [facility] Testing performed at: [facility], [employer] [facility], [address] [place], [place] [address] , [address] [place] [address], [address] [place] [address], Tire Duster: Velasquez Caldwell MD [facility] Collection Date/Time: [facility] Results Received Date/Time: [facility] Reported Date/Time: Performed By: #### % SBRAST, [id number] #### [facility] Default [address] [place] [address] LUMBAR SPINE 2 OR 3 [facility] [id number] [place] [address] Patient Name: FREDI MCKEE : 1965Sex: FAge: Race: BlackMRN: [id number]. Location: 84Patient Status: Date: 03/07/2017 8:30:00 AMCompleted Date: 03/07/2017 08:35 AMRequesting Provider: HOMERO ACEVEDO Attending Provider: Report Copy To: Signs & Symptoms: M51.36 Other intervertebral disc degeneration, lumbar region [id number]: AthenaComments: , , Views (X-RAY, LUMBAR SPINE): AP, Lateral, L5-S1 Spot , Weight Bearing?: Y , , , Ordering Provider - HOMERO ACEVEDO MD , Exam: LUMBAR SPINE 2 OR 3 VWSAccession #: [id number] LUM BAR SPINE 2 OR 3 VWS [...] findings. Electronically signed by:Alex Galarza. Transcribed by: [email or web address], User Resident: KRYSTINA MALONEANElectronically Signed by: ALEX GALARZA @ 03/07/2017 02:18 PMI personally read this/these film(s) with this resident Normal [facility] Comment on above: Order Comment: , , V iews (X-RAY, LUMBAR SPINE): AP, Lateral, L5-S1 Spot , Weight Bearing?: Y , , , Ordering Provider - HOMERO ACEVEDO MD , LUMBAR SPINE 2 OR 3 [facility] LUMBAR SPINE 2 OR 3 [facility] [address] [place] [address] Patient Name: FREDI MCKEE : 1965Sex: FAge: Race: BlackMRN: [id number]. Location: 84Patient Status: Date: 10/25/2016 8:45:00 AMCompleted Date: 10/25/2016 08:50 AMRequesting Provider: HOMERO ACEVEDO Attending Provider: Report Copy To: Signs & Symptoms: M51.36 Other intervertebral disc degeneration, lumbar region [id number]: [employer]naComments: , , Views (X-RAY, LUMBAR SPINE): AP, Lateral, L5-S1 Spot , Weight Bearing?: Y , , , Ordering Provider - HOMERO SALMON MD , Exam: LUMBAR SPINE 2 OR 3 VWSAccession #: [id number] LUM BAR SPINE 2 OR 3 S [...] disease. Electronically signed by:Moriah Krueger. Transcribed by: [email or web address], User Resident: Electronically Signed by: MORIAH KRUEGER @ 10/25/2016 03:33 PM Normal [facility] Comment on above: Order Comment: , , V iews (X-RAY, LUMBAR SPINE): AP, Lateral, L5-S1 Spot , Weight Bearing?: Y , , , Ordering Provider - HOMERO SALMON MD , BNPon 10-22-2016 BNP 8 pg/mL Normal 0 - 99 [facility] Comment on above: Result Comment: . <1 00 pg/mL - Heart failure [id number] pg/mL - Intermediate probability of acute heart. failure exacerbation. Correlate with clinical. context and patient history. >=300 pg/mL - Heart Failure likely. Correlate with clinical. context and patient history.BNP testing is performed using different testingmethodology [facility] than [facility]. Direct result comparisons shouldonly be made within the same method. Performed By: #### B NP2 ####[facility] ,[facility], [phone] CBC AND DIFFERENTIALon 10-22 % AUTOMATED IMMATURE GRAN 0.2 % Normal 0.0 - 0.9 [facility] Comment on above: Result Comment: Perc ent differential counts (%) should be interpreted in the context of the absolute cell counts (cells/L). Performed By: #### C BCDF ####[facility] [facility], [phone] % NEUTROPHIL 55.7 % Normal 40.0 - 80.0 [facility] Comment on above: Performed By: #### C BCDF ####[facility] [facility], [phone] Basophils/100 WBC Auto (Bld) 0.05 x10E9/L Normal 0.00 - 0.10 [facility] Comment on above: Performed By: #### C BCDF ####[facility] [facility], [phone] Basophils/100 WBC Auto (Bld) 0.5 % Normal 0.0 - 2.0 [facility] Comment on above: Performed By: #### C BCDF ####[facility] [facility], [phone] Eosinophils 0.23 10*3/uL Normal 0.00 - 0.70 [facility] Comment on above: Performed By: #### C BCDF ####[facility] [facility], [phone] Eosinophils/100 leukocytes 2.1 % Normal 0.0 - 6.0 [facility] Comment on above: Performed By: #### C BCDF ####[facility] [facility], [phone] Erythrocyte distribution width Auto Ratio (RBC) 17.0 % High 11.5 - 14.5 [facility] Comment on above: Performed By: #### C BCDF ####[facility] [facility], [phone] Erythrocytes (RBC) 5.38 x10E12/L High 4.00 - 5.20 [facility] Comment on above: Performed By: #### C BCDF ####[facility] [facility], [phone] Hematocrit (HCT) 39.8 % Normal 36.0 - 46.0 [facility] Comment on above: Performed By: #### C BCDF ####[facility] [facility], [phone] Hemoglobin mass conc (Bld) 12.7 g/dL Normal 12.0 - 16.0 [facility] Comment on above: Performed By: #### C BCDF ####[facility] [facility], [phone] Lymphocytes 3.64 10*3/uL Normal 1.20 - 4.80 [facility] Comment on above: Performed By: #### C BCDF ####[facility] [facility], [phone] Lymphocytes/100 leukocytes 33.4 % Normal 13.0 - 44.0 [facility] Comment on above: Performed By: #### C BCDF ####[facility] [facility], [phone] MCHC mass conc (RBC) 31.9 g/dL Low 32.0 - 36.0 [facility] Comment on above: Performed By: #### C BCDF ####[facility] [facility], [phone] MCV 74 fL Low 80 - 100 [facility] Comment on above: Performed By: #### C BCDF ####[facility] [facility], [phone] Monocytes 0.88 10*3/uL Normal 0.10 - 1.00 [facility] Comment on above: Performed By: #### C BCDF ####[facility] [facility], [phone] Monocytes/100 leukocytes 8.1 % Normal 2.0 - 10.0 [facility] Comment on above: Performed By: #### C BCDF ####[facility] [facility], [phone] Neutrophils 6.07 10*3/uL Normal 1.20 - 7.70 [facility] Comment on above: Performed By: #### C BCDF ####[facility] [facility], [phone] Platelets 453 10*3/uL High 150 - 450 [facility] Comment on above: Performed By: #### C BCDF ####[facility] [facility], [phone] WBC (Leukocytes) 10.9 10*3/uL Normal 4.4 - 11.3 [facility] Comment on above: Performed By: #### C BCDF ####[facility] [facility], [phone] COMPREHENSIVE PANELon 2016 Alanine aminotransferase (ALT) 27 U/L Normal 7 - 45 [facility] Comment on above: Result Comment: Janeth ents treated with Sulfasalazine may generate falsely decreased results for ALT. Performed By: #### C MP ####[facility],[facility], [phone] Albumin 4.0 g/dL Normal 3.4 - 5.0 [facility] Comment on above: Performed By: #### C MP ####[facility],[facility], [phone] Alkaline phosphatase (ALP) 74 U/L Normal 33 - 110 [facility] Comment on above: Performed By: #### C MP ####[facility],[facility], [phone] Anion gap 17 mmol/L Normal 10 - 20 [facility] Comment on above: Performed By: #### C MP ####[facility],[facility], [phone] Aspartate aminotransferase (AST) 30 U/L Normal 9 - 39 [facility] Comment on above: Result Comment: MILD HEMOLYSIS DETECTED. The result may be falsely elevated due tohemolysis or other interferents. Clinical correlation is recommended.Repeat testing may be considered. Performed By: #### C MP ####[facility],[facility], [phone] Bicarbonate (HCO3) 22 mmol/L Normal 21 - 32 [facility] Comment on above: Performed By: #### C MP ####[facility],[facility], [phone] Bilirubin (total) 0.5 mg/dL Normal 0.0 - 1.2 [facility] Comment on above: Performed By: #### C MP ####[facility],[facility], [phone] Calcium 9.7 mg/dL Normal 8.6 - 10.6 [facility] Comment on above: Performed By: #### C MP ####[facility],[facility], [phone] Chloride 103 mmol/L Normal 98 - 107 [facility] Comment on above: Performed By: #### C MP ####[facility],[facility], [phone] Creatinine 1.13 mg/dL High 0.50 - 1.05 [facility] Comment on above: Performed By: #### C MP ####[facility],[facility], [phone] eGFR (non-black) 51 mL/min/{1.73_m2} Invalid Interpretation Code >60 [facility] Comment on above: Performed By: #### C MP ####[facility],[facility], [phone] eGFR (non-black) 62 mL/min/{1.73_m2} Normal >60 [facility] Comment on above: Result Comment: CALC ULATIONS OF ESTIMATED GFR ARE PERFORMED USING THE MDRD STUDY EQUATION FOR THE IDMS-TRACEABLE CREATININE METHODS. CLIN CHEM 2007;53:766-72 Performed By: #### C MP ####[facility],[facility], [phone] Glucose mass conc 126 mg/dL High 74 - 99 [facility] Comment on above: Performed By: #### C MP ####[facility],[facility], [phone] Potassium molar conc 4.2 mmol/L Normal 3.5 - 5.3 [facility] Comment on above: Result Comment: MILD HEMOLYSIS DETECTED. The result may be falsely elevated due tohemolysis or other interferents. Clinical correlation is recommended.Repeat testing may be considered. Performed By: #### C MP ####[facility],[facility], [phone] Protein 8.1 g/dL Normal 6.4 - 8.2 [facility] Comment on above: Performed By: #### C MP ####[facility],[facility], [phone] Sodium 138 mmol/L Normal 136 - 145 [facility] Comment on above: Performed By: #### C MP ####[facility],[facility], [phone] Urea nitrogen 13 mg/dL Normal 6 - 23 [facility] Comment on above: Performed By: #### C MP ####[facility],[facility], [phone] TROPONIN Ion 10-22-2016 Troponin I.cardiac mass conc ng/mL Normal 0.00 - 0.03 [facility] Comment on above: Result Comment: LESS THAN 0.04 NG/ML: NEGATIVEREPEAT TESTING IN FOUR TO SIX HOURSIF CLINICALLY INDICATED.0.04 - 0.5 NG/ML: CONSISTENT WITH POSSIBLECARDIAC DAMAGE AND POSSIBLE INCREASEDCLINICAL RISK.SERIAL MEASUREMENTS MAY HELP ASSESS EXTENT OFMYOCARDIAL DAMAGE.>0.5 NG/ML: CONSISTENT WITH CARDIAC DAMAGE,INCREASED CLINICAL RISK AND MYOCARDIALINFARCTION. SERIAL MEASUREMENTS MAY HELPASSESS EXTENT OF MYOCARDIAL DAMAGE..Note: Troponin I testing is performed using different[facility]. Direct result comparisons should onlybe made within the same method. Performed By: #### T ROP2 ####[facility],[facility], [phone] CHEST 2 VIEW PA AND LATon CHEST 2 VIEW PA AND LAT Name: FRDEI MCKEE STUDY:CHEST 2 VIEW PA AND LAT; [...] y signed by: EWA NEELY MD Normal [facility] Large Joint Arthro/Inj: bila teral knee joints [facility] Vital Signs Date Time Vital Sign Value Performing Clinician Brandon blue 05-30-2023 10:05-0500 Body height 165.1 cm Gal Collins MD Work Phone: [facility] 05-30-2023 10:05-0500 Body mass index (BMI) [Ratio] 56.41 kg/m2 Gal Collins MD Work Phone: [facility] 05-30-2023 10:05-0500 Body weight 153.77 kg Gal Collins MD Work Phone: [facility] 05-30-2023 10:05-0500 Diastolic blood pressure 85 mm[Hg] Gal Collins MD Work Phone: [facility] 05-30-2023 10:05-0500 Systolic blood pressure 143 mm[Hg] Gal Collins MD Work Phone: [facility] 11-20-2022 09:32-0400 Body height 162.6 cm Gissel [employer] Work Phone: [facility] 11-20-2022 09:32-0400 Body weight 149.05 kg Gissel [employer] Work Phone: [facility] Encounters Encounter Date Encounter Type Care Provider Facility Start: 11-12-2023 End: 11-12-2023 ambulatory [facility] Start: 11-05-2023 End: 11-05-2023 ambulatory [facility] Start: 09-27-2023 End: 09-29-2023 ambulatory DOROTHEA CLAY [facility] Start: 09-27-2023 End: 09-29-2023 Subsequent hospital visit by physician Mth Mri Scanner [facility] MRI Comment on above: Acute left ankle darrian n Start: 08-30-2023 End: 08-31-2023 Emergency department patient visit CATHR[facility] Start: 07-12-2023 End: 07-12-2023 ambulatory [facility] Start: 07-05-2023 End: 07-23-2023 ambulatory [facility] Start: 05-30-2023 End: 05-30-2023 ambulatory GAL COLLINS Not Available Start: 05-30-2023 End: 05-30-2023 Office outpatient visit 15 minutes Gal Collins MD Work Phone: [facility] Comment on above: Perichondritis of au ricle, left (Primary Dx) Start: 05-16-2023 End: 05-16-2023 ambulatory GAL COLLINS Not Available Start: 03-09-2023 ambulatory Gal Collins Facility: [facility] Start: 11-20-2022 End: 11-20-2022 ambulatory KALA CONTE Facility:[facility] Start: 11-20-2022 End: 11-20-2022 Patient encounter procedure Gissel Yañez PA-C Work Phone: Orthopaedics Comment on above: Bilateral primary os teoarthritis of knee (Primary Dx); Class 3 severe obesity due to excess calories without serious comorbidity with body mass index (BMI) of 50.0 to 59.9 in adult ([facility]) Start: 11-20-2022 End: 11-20-2022 Subsequent hospital visit by physician [facility] Comment on above: Chronic pain of both knees [M25.561, M25.562, G89.29] Start: 11-03-2022 Orders Only Gissel pate PA-C Work Phone: Orthopaedics Comment on above: Chronic pain of both knees (Primary Dx) Start: 09-04-2022 End: 09-05-2022 [facility] Facility:[facility] Start: 07-31-2022 End: 08-01-2022 ambulatory Gal Collins Facility:[facility] Start: 07-31-2022 End: 07-31-2022 Patient encounter procedure Gal Collins [facility] Start: 07-06-2022 End: 07-07-2022 [facility] Facility:[facility] Start: 06-08-2022 End: 06-09-[address] CADENCE LUKE . Facility:[facility]1 Start: 05-18-[address] CADENCE LUKE . Faci lity:H1 Start: 04-19-2022 End: 04-19-2022 [facility] Facility:[facility] Start: 02-15-2022 End: 02-16-[address] CADENCE LUKE . Facility:H1 Start: 01-19-2022 End: 01-20-2022 [facility] Facility: Start: 10-18-2021 End: 10-19-[address] CADENCE LUKE . Facility: Start: 10-07-2021 End: 10-08-2021 ambulatory Anne Marroquin II Facility:[facility] Start: 10-06-2021 End: 10-07-2021 ambulatory [facility] Facility: Start: 03-07-2017 End: 03-08-2017 Ambulatory HOMERO ACEVEDO Facility:[facility] Start: 10-25-2016 End: 10-26-2016 Ambulatory HOMEROJOSE C DANIELLETAHIRFY Facility:[facility] Start: 10-21-2016 End: 10-22-2016 Ambulatory Светлана Albright [facility] Start: 10-21-2016 Emergency dept visit high severity&threat funcj Светлана Imm [facility] Procedures Date Procedure Procedure Detail Performing Clinician Start: 09-27-2023 Mri any jt lower ext rem w/o contrast matrl Dorothea Clay RING FACER - HYDRAULIC [employer]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 Start: 11-03-2023 Screening for malign ant neoplasm of breast Mammogram [facility] Start: 04-23-2023 Annual Wellness Visi t (Medicare Advantage) Annual Wellness Visit (Medicare Advantage) [facility] Start: 12-22-2022 Influenza vaccination INFLUENZA (#1) [facility] Start: 10-12-2022 ambulatory Ambulatory Facility:H 1 Start: 04-23-2022 DEPRESSION ASSESSMENT DEPRESSION ASS ESSMENT [facility] Start: 05-27-2021 COVID-19 VACCINE (4 - Moderna series) COVID-19 VACCINE (4 - Moderna series) [facility] Start: 07-15-2017 Shingles vaccine (1 of 2) Shingles vaccine (1 of 2) [facility] Start: 07-15-2017 SHINGRIX VACCINE (1 of 2) SHINGRIX VACCINE (1 of 2) [facility] Start: 07-15-2012 COLOGUARD (FIT-DNA) COLOGUARD (FIT-D NA) [facility] Start: 07-15-[address] [facility] Start: 07-15-2012 COLORECTAL CANCER SCREENING COLORECTAL CANCER SCREENING [facility] Start: 07-15-[address] COLONOGRAP[address] [facility] Start: 07-15-2012 DIABETES SCREEN DIABETES SCREEN [facility] Start: 07-15-2012 FECAL OCCULT BLOOD FECAL OCCULT BLOO D [facility] Start: 07-15-2012 LIPID SCREEN LIPID SCREEN [facility] Start: 07-15-2012 Screening for malign ant neoplasm of colon [facility] Start: 07-15-2012 SIGMOIDOSCOPY SIGMOIDOSCOPY [facility] Start: 2007 Lipid panel Lipids [facility] Start: [address] [facility] Start: 07-15-1997 HPV TESTING HPV TESTING [facility] Start: 07-15-1997 Screening for malign ant neoplasm of cervix [facility] Start: 07-15-1988 PAP TESTING PAP TESTING [facility] Start: 07-15-1988 Screening for malign ant neoplasm of cervix Pap Smear [facility] Start: 07-15-1986 Urine microalbumin profile DTAP,TDAP,TD (1 - Tdap) [facility] Start: 07-15-1985 HEPATITIS C SCREENING HEPATITIS C SC REENING [facility] Start: 07-15-1985 Hepatitis C screening Hepatitis C ar reen [facility] Start: 07-15-1985 HIV SCREENING HIV SCREENING [facility] Start: 07-15-1982 HIV screening HIV screen [facility] Start: 1979 Depression Screen Depression Screen [facility] Start: 01-16-1968 COVID-19 VACCINE (#1) COVID-19 VACCI NE (#1) [facility] Start: 1967 HEPATITIS B (1 of 3 - 3-dose series) HEPATITIS B (1 of 3 - 3-dose series) [facility] Start: 1967 Hepatitis B vaccine (1 of 3 - 3-dose series) Hepatitis B vaccine (1 of 3 - 3-dose series) [facility] Start: 1967 Screening for malign ant neoplasm of colon [facility] End: 12-03-2023 XR KNEE GENERAL 4V AP BOTH/PA BOTH/LAT/MERC BILATERAL XR KNEE GENERAL 4V AP BOTH/PA BOTH/LAT/MERC BILATERAL Radiology Routine Chronic pain of both knees 1 Occurrences starting 11/03/2022 until 12/03/2023 [facility] Work Phone: Comment on above: 1 Occurrences starti ng 11/03/2022 until 12/03/2023 [facility] Immunization Date Immunization Notes Care Provider Fa cility 08-21-2020 SARS-CoV-2 (COVID-19 ) mRNA-1273 vaccine Gal Collins [facility] 07-22-2020 SARS-CoV-2 (COVID-19 ) mRNA-1273 vaccine Gal Collins [facility] 02-20-2018 Influenza, injectabl e, Madin Mai Canine Kidney, preservative free, quadrivalent Gissel McFrederick PA-C Work Phone: [facility] 03-12-2017 influenza, seasonal, injectable, preservative free Gissel McFrederick PA-C Work Phone: [facility] 02-15-2016 influenza, seasonal, injectable, preservative free Gissel McFrederick PA-C Work Phone: [facility] 02-24-2015 influenza, seasonal, injectable, preservative free Gissel McFrederick PA-C Work Phone: [facility] 01-09-2012 hepatitis B vaccine, pediatric or pediatric/adolescent dosage Gissel McFrederick PA-C Work Phone: [facility] 01-09-2012 hepatitis B vaccine, unspecified formulation Gissel McFrederick PA-C Work Phone: [facility] Payers Date Payer Category Payer Medicare [id number] 1. [id number] 2021 Self-pay [id number] 2020 Medicare [id number] 2020 Unknown [id number] 2018 Medicaid [id number] 2017 Unknown [id number] 1967 Unknown [id number] 2.16.84 0.1.973379.3.579.2.593 1967 Unknown [id number] 2.16.84 0.1.560620.3.579.2.593 1967 Unknown [id number] 2.16.84 0.1.725407.3.579.2.593 1967 Unknown [id number] 2.16.84 0.1.569854.3.579.2.593 1967 Unknown [id number] 2.16.84 0.1.716044.3.579.2.593 1967 Unknown [id number] 2.16.84 0.1.632662.3.579.2.593 1967 Unknown [id number] 2.16.84 0.1.205526.3.579.2.593 1967 Unknown [id number] 2.16.84 0.1.898312.3.579.2.593 1967 Unknown [id number] 2.16.84 0.1.551954.3.579.2.593 1967 Unknown [id number] 2.16.84 0.1.673442.3.579.2.593 1967 Unknown [id number] 2.16.8 40.1.080300.3.579.2.727 1967 Unknown [id number] 2.16.84 0.1.574490.3.579.2.1259 1967 Unknown [id number] 2.16.84 0.1.459803.3.579.2.1259 1967 Unknown [id number] 2.16.8 40.1.003461.3.579.2.173 1967 Unknown [id number] 2.16.8 40.1.835470.3.579.2.1286 1967 Unknown [id number] 2.16.8 40.1.762450.3.579.2.1286 1967 Unknown [id number] 2.16.8 40.1.282778.3.579.2.1286 1967 Unknown [id number] 2.16.8 40.1.944469.3.579.2.1286 1967 Unknown [id number] 2.16.8 40.1.789248.3.579.2.1286 1967 Unknown [id number] 2.16.8 40.1.908726.3.579.2.1286 1959 Unknown [id number] Unknown [id number] 2.16.8 40.1.129051.3.579.2.531 Social History Date Type Detail Facility Start: 08-15-2017 End: 01-25-2021 Tobacco smoking status Ex-smoker (finding) [facility] Start: 08-11-2012 End: 11-22-2018 Sex Assigned At [facility] History of tobacco use Current smoker [facility] History of tobacco use Cigarette Smoker [facility] Start: 08-15-2017 End: 05-16-2023 Tobacco use and exposure Smokeless tobacco non-user [facility] Start: 08-14-2018 Alcohol intake Current drinke r of alcohol (finding) [facility] Start: 08-11-2012 End: 11-22-2018 History of Social function [facility] PHQ-2 Score 0 [facility] Start: 08-15-2017 Tobacco Comment quit 2013 [facility] Start: 07-30-2013 Alcohol Comment social [facility] Start: 1965 Sex Assigned At Not on file [facility] Start: 1965 Sex Assigned At Female [facility] Start: 05-16-2023 Tobacco smoking stat [facility] Never smoked tobacco [facility] Start: 05-30-2023 [...] per day [facility] Clinical Notes 10-06-2021 to 11-20-2022 Gissel Yañez PA-C - 11/20/2022 4:47 PM Gissel Vee PA-C - 11/20/2022 9:34 AM Stanley Dwyer, RT(R) - 11/20/2022 9:00 AM EDT Note Date & Type Note Facility 11-20-2022 Note HNO ID: [id number] Author: Gissel Yañez PA-C Service: ? Author Type: Physician Sweeper Brush Maker Machine Type: Progress Notes Filed: 11/20/2022 4:50 PM [...] knee joints Informed Consent Consent Obtained: Verbal [place] Protocol A moment to CARE was completed. [...] the patient voiced understanding of these instructions. [facility] 11-20-2022 History of Present illness Narrative [...] knee joints Informed Consent Consent Obtained: Verbal [place] Protocol A moment to CARE was completed. [...] exercise. 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 We discuss our Get Ready program. 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 11-20-2022 Note HNO ID: [id number] Author: Gissel Yañez PA-C Service: ? Author Type: Physician Sweeper Brush Maker Machine Type: Progress Notes Filed: 11/20/2022 4:50 PM [...] exercise. 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 We discuss our Get Ready program. 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 [facility] 11-20-2022 Note HNO ID: [id number] Author: Stanley Martinez RT(R) Service: ? Author [...] RT Quita(R) November 20, 2022 8:40 AM [facility] 11-20-2022 History of Present illness Narrative [...] 2022 8:40 AM documented in this encounter [facility] 07-06-2022 Note CONSULTATION PROCEDURE DATE: 07/06/2022 [...] injection. Patient tolerated the procedure well. [facility] 06-08-2022 Note CONSULTATION CONSULTATION DATE: 06/08/2022 [...] drive herself. She prefers to go to [place], but it is highly recommended to her to go to the emergency department here at [facility], across the parking lot. We will follow up with her and reschedule her for an appointment. [facility] 02-15-2022 Note CONSULTATION PROCEDURE DATE: 02/15/2022 [...] followed up in the clinic thereafter. [facility] 01-19-2022 Note CONSULTATION CONSULTATION DATE: 01/19/2022 [...] will return in 2-3 weeks' time. [facility] 01-19-2022 Note CONSULTATION PROCEDURE DATE: 01/19/2022 [...] be followed up in the clinic. [facility] 10-18-2021 Note CONSULTATION PROCEDURE DATE: 10/18/2021 [...] range of motion exercises subsequent to this. [facility] Signed and Approved by: DR CADENCE LUKE . 11/01/2021 07:55:00 [facility] 10-06-2021 Note CONSULTATION CONSULTATION DATE: 10/06/2021 HISTORY [...] plan of care and all questions answered. [facility] Signed and Approved by: ORVILLE PETERS . 10/19/2021 16:23:00 [facility] Evaluation + Plan note No data available for this section [facility] Evaluation note Diagnosis Chronic pain of both knees- Primary [facility] Bilateral primary osteoarthritis of knee- Primary Class 3 severe obesity due to excess calories without serious comorbidity with body mass index (BMI) of 50.0 to 59.9 in adult (HCC) [facility] Diagnosis Chronic pain of both knees [facility] noteNo assessment information availableSum[facility] Work Phone: Evaluation note* Diagnosis Perichondritis of auricle, left- Primary [facility] Acute left ankle pain documented in this encounter [facility] of Present illness Narrative* Gal Collins [...] back pain 05/16/2023 Chronic obstructive pulmonary disease ([facility]) 01/02/2020 Degenerative thoracic spinal stenosis 05/16/2023 Essential hypertension ([facility]) 04/29/2020 Fibroid uterus 09/01/2013 Lumbar stenosis 11/27/2016 Nasal congestion 05/16/2023 Shortness of breath 04/29/2020 Perichondritis of auricle, left 05/16/2023 Resolved Ambulatory Problems Diagnosis Date Noted Morbid obesity with BMI of 50.0-59.9, adult ([facility]) 01/02/2020 Past Medical History: Diagnosis Date Anemia Asthma ([facility]) Back pain, thoracic Chronic pansinusitis Congenital urethral stenosis DJD (degenerative joint disease) Hypertension ([facility]) Insomnia Major depressive disorder ([facility]) Migraine ([facility]) Pneumonia 2019 PTSD (post-traumatic stress disorder) ([facility]) Past Surgical History: Procedure Laterality Date BACK [...] evaluated for autoimmune perichondritis [facility] instructions No data available for this section [facility] No data available for this section [facility] for [facility] (narrative)* Diagnostic Procedure Only (Routine) - Pending Review Specialty Diagnoses / Procedures Referred By Timmy singh Referred To Contact XR IMAGING Diagnoses Chronic pain of both knees Procedures XR KNEE GENERAL 4V AP BOTH/PA BOTH/LAT/MERC BILATERAL RADIOLOGIC EXAM KNEE COMPLETE 4/MORE VIEWS Gissel Yañez PA-C [address] [address] Xr Imaging Referral ID Status Reason Start Date Expiration Date Visits Requested Visits Authorized [id number] Pending Review Auto-Generat ed Referral 11/03/2022 12/03/[address] [facility] Diagnostic Procedure Only (Routine) - Closed Specialty Diagnoses / Procedures Referred By Contac t Referred To Contact XR IMAGING Diagnoses Chronic pain of both knees Procedures XR KNEE GENERAL 4V AP BOTH/PA BOTH/LAT/MERC BILATERAL RADIOLOGIC EXAM KNEE COMPLETE 4/MORE VIEWS Gissel Yañez PA-C [address] [address] Xr Imaging Referral ID Status Reason Start Date Expiration Date V isits Requested Visits Authorized [id number] Closed Auto-Generate d Referral 11/03/2022 12/03/[address] 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 [address] [place] [address] Referral ID Status Reason Start Date Expiration Date Visits Re quested Visits Authorized [id number] Closed 09/10/2023 03/08/2024 1 1 Specialty Diagnoses [...] COMPLEX 45 MINS Gissel Yañez PA-C [address] [address] [facility] [place] [address] [place] [address] Referral ID Status Reason Start Date Expiration Date Visits Requested Visits Authorized [id number] Pending Review Auto-Generat ed Referral 11/20/2022 11/20/2023 1 1 Specialty Diagnoses / Procedures Referred By Timmy singh Referred To Contact Diagnoses Class 3 severe obesity due to excess calories without serious comorbidity with body mass index (BMI) of 50.0 to 59.9 in adult ([facility]) Bilateral primary osteoarthritis of knee Procedures ENDOCRINE [facility]ICAL WEIGHT [facility]NAGEMENT OFF[facility] 60-74 MINUTES Gissel Yañez PA-C [address] [address] Referral ID Status Reason Start Date Expiration Date Visits Requested Visits Authorized [id number] Pending Review PCP Requested Referral 11/20/2022 11/20/2023 [...] section and content) DATE CREATED AUTHOR 10/16/2017 [facility] DATE CREATED AUTHOR AUTHOR'S ORGANIZ ATION 10/17/2017 [facility] DATE CREATED AUTHOR AUTHOR'S ORGANIZ ATION 04/14/2021 [facility] Specialist DATE CREATED AUTHOR AUTHOR'S ORGANIZ ATION 09/06/2022 [facility] DATE CREATED AUTHOR AUTHOR'S ORGANIZ ATION 11/21/2022 [facility] DATE CREATED AUTHOR AUTHOR'S ORGANIZ ATION 12/23/2022 [facility] DATE CREATED AUTHOR AUTHOR'S ORGANIZ ATION 04/01/2023 [facility] DATE CREATED AUTHOR AUTHOR'S ORGANIZ ATION 05/31/2023 [facility] Specialists EPIC DATE CREATED AUTHOR AUTHOR'S ORGANIZ ATION 09/30/[address] [facility] DATE CREATED AUTHOR AUTHOR'S ORGANIZ ATION 11/14/2023 [facility] Patient Care team informatio n (unrecognized section and content) Inside Technical Sales Representative Relationship Specialty Start Date End Date aKla Conten PCP - General Family Medicine 06/18/17 [facility] [address] [place] [address] Referring 08/28/22 Inside Technical Sales Representative Relationship Specialty Start Date End Date Inés Kala Adamsn PCP - General Family Medicine 06/18/17 [facility], [facility] [address] [place] [address] Referring 08/28/22 Inside Technical Sales Representative Relationship Specialty Start Date End Date Conte Kala Elizabeth PCP - General Family Medicine 06/18/17 [facility] [address] [place] [address] Referring 08/28/22 Inside Technical Sales Representative Relationship Specialty Start Date End Date Kala Conte MD [address] [place], [place] [id number] PCP - General Pediatrics 05/30/23 Inside Technical Sales Representative Relationship Specialty Start Date End Date Kala Conte MD [address] [place] [address] PCP - General Family Medicine 09/27/23 Source Comments (unrecognize d section and content) In the event this informatio n is protected by the Federal Confidentiality of Alcohol and Drug Abuse Patient Records regulations: The Federal rules restrict any use of the information to criminally investigate or prosecute any alcohol or drug abuse patient.[facility] the event this information is protected by the Federal Confidentiality of Alcohol and Drug Abuse Patient Records regulations: The Federal rules restrict any use of the information to criminally investigate or prosecute any alcohol or drug abuse patient.[facility] the event this information is protected by the Federal Confidentiality of Alcohol and Drug Abuse Patient Records regulations: The Federal rules restrict any use of the information to criminally investigate or prosecute any alcohol or drug abuse patient[facility] Reason for Visit (unrecogniz ed section and content) Reason Comments Knee Pain Reason Comments Radio Gen A21 Specialty Diagnoses / Procedures Referred By Contac t Referred To Contact XR IMAGING Diagnoses Chronic pain of both knees Procedures XR KNEE GENERAL 4V AP BOTH/PA BOTH/LAT/MERC BILATERAL RADIOLOGIC EXAM KNEE COMPLETE 4/MORE VIEWS Gissel Yañez PA-C [address] [address] Xr Imaging Referral ID Status Reason Start Date Expiration Date V isits Requested Visits Authorized [id number] Closed Auto-Generate d Referral 11/03/2022 12/03/2023 1 1 Reason Comments Ear Problem 2 wk recheck ear Specialty Diagnoses / Procedures Referred By Contac t Referred To Contact Radiology Diagnoses Acute left ankle pain Procedures MRI ANKLE LEFT WO CONTRAST Dorothea Clay, RING F[employer]ER - [employer] [address] [place] [address] Referral ID Status Reason Start Date Expiration Date Visits Re quested Visits Authorized [id number] Closed 09/10/2023 03/08/2024 1 1 Goals (unrecognized [...] BE BASED ON THE PRIMARY CLINICAL RECORDS. [employer] provides no warranty or guarantee of the accuracy or completeness of information in this document.
== END 2024-02-12 11:34 | disposition home or self-care (01) ==
LOC: PM 11:34
PROVIDERS: Visit Provider Anesthesiology Pain Medicine
DX: M79.18 Myalgia, other site (principal)
CPT/HCPCS: 20552; J0665; J3301

== ENCOUNTER 2024-04-29 09:37 | Outpatient (OUT) | payer MEDICARE, MEDICAID, SELFPAY ==
--- NOTE | 2024-04-29 | CONS_ITS ---
CONSULTATION DATE: 04/29/2024 TO: [facility] HISTORY: She returns today complaining of pain in her left ankle, as well as pain in her lower back bilaterally, worse on the right side. She overall rates the pain as being 7/10, described as a grabbing type of pain, increased with activities such as standing and walking and performing transitioning maneuvers. She feels most comfortable in the semi-recumbent position. Denies any change in bowel and bladder habits or new sensorimotor changes in the lower extremities. She presents with a walking boot on the left side. CURRENT MEDICATION: Includes Motrin 600 mg daily p.r.n., Percocet 5 mg b.i.d. p.r.n., tizanidine 4 mg half a pill b.i.d. She was unable to tolerate Zonegran in the past. EXAM: Her exam is limited. Notable for the patient having no clinical radiculopathy involving the lower extremities. Patient did have a moderate amount of pain with lumbar facet loading maneuvers, but significant myofascial spasm of the erector spinae muscle and the gluteus tressa on the right side. IMPRESSION: Our impression is patient appears to have chronic pain secondary to a left Achilles tear. She is awaiting repair of the same. Her pain from her post laminectomy syndrome appears to be stable, as is her myofascial spasm. RECOMMENDATIONS: I will have her continue with the current medication, and see the patient back in the office in approximately three months? time or sooner if needed. As part of providing excellent, safe, comprehensive care, the following was completed at our patient's visit: 1. A medication reconciliation and review to ensure accurate knowledge of current/active medications, including asking our patients to inform us about any brey-qlz-rkvrcac medications or herbal remedies/nutritional supplements/alternative remedies. 2. A review to specifically ensure our patients have had annual screening for: elevated body mass index (BMI, see intake chart for exact total), tobacco use, screening for depression, and screening for unhealthy alcohol use. When screening is concerning, patients are provided with education and the specific recommendation to discuss the concerning health issue and treatment options with their primary care provider. MEGAN
== END 2024-04-29 09:38 | disposition home or self-care (01) ==
LOC: PM 09:37
PROVIDERS: Visit Provider Anesthesiology Pain Medicine
DX: G89.4 Chronic pain syndrome (principal); S86.012A Strain of left Achilles tendon, initial encounter; M96.1 Postlaminectomy syndrome, not elsewhere classified; M62.838 Other muscle spasm
CPT/HCPCS: G0463

== ENCOUNTER 2024-07-30 10:01 | Outpatient (OUT) | payer MEDICARE, MEDICAID, SELFPAY ==
--- NOTE | 2024-07-30 10:35 | PM.CN ---
Consult Note: HPI Data of Consult Patient: known to practice within the last 3 years Requesting Physician: Natalia Lou NP Primary Care Provider: Kala Conte Consult Narrative Reason for consult: f/u Narrative: Eddie Mckee a 59 year old female presents for evaluation of chronic low back and bilateral knee pain. pain today 7-8/10 aching throbbing. pain increased with activity. denies falls/injury. prior lumbar MRI consistent with multilevel stenosis, ddd, and lumbar spondylosis. pt previously found benefit to lumbar ESIs, last injection 2020. has failed to benefit from > 6 weeks of PT/provider guided HEP, heat, ice, tylenol, NSAIDs. currently on motrin, cymbalta, percocet, tizanidine with mild benefit without side effects cc:: CC: Natalia Lou NP Review of Systems ROS Status of ROS 10 or more systems reviewed and unremarkable except as noted in history and below Musculoskeletal Reports: back pain, extremity pain and joint pain PFSH PFSH Medical History Acid reflux ?K21.9 - Gastro-esophageal reflux disease without esophagitis (ICD-10) Low back pain ?M54.50 - Low back pain, unspecified (ICD-10) Hypertension ?I10 - Essential (primary) hypertension (ICD-10) Asthma ?J45.909 - Unspecified asthma, uncomplicated (ICD-10) Surgical History History of carpal tunnel release ?Z98.890 - Other specified postprocedural states (ICD-10) History of endometrial ablation ?Z98.890 - Other specified postprocedural states (ICD-10) History of lumbar surgery ?Z98.890 - Other specified postprocedural states (ICD-10) H/O abdominal hysterectomy ?Z90.710 - Acquired absence of both cervix and uterus (ICD-10) History of primary section ?Z98.891 - History of uterine scar from previous surgery (ICD-10) Hx of ventral hernia repair ?Z98.890 - Other specified postprocedural states (ICD-10) ?Z87.19 - Personal history of other diseases of the digestive system (ICD-10) Meds Home Medications and Allergies Home Medications ?Medication ?Instructions ?Recorded ?Confirmed ?Type albuterol sulfate 90 mcg/actuation 2 inh inhalation Q6H PRN shortness 10/18/22 05/01/23 History aerosol inhaler (Ventolin HFA) of breath bupropion HCl 150 mg tablet,12 hr 150 mg PO BID 10/18/22 05/01/23 History sustained-release (Wellbutrin SR) calcium 500 mg (as 1 tab PO BID 10/18/22 05/01/23 History carbonate)-vitamin D3 5 mcg (200 unit) tablet (Calcium 500 + D) duloxetine 30 mg capsule,delayed 30 mg PO DAILY 10/18/22 05/01/23 History release (Cymbalta) multivitamin (Daily Multi-Vitamin 1 tab PO DAILY 10/18/22 05/01/23 History tablet) spironolactone 25 mg tablet 25 mg PO DAILY 10/18/22 05/01/23 History zolpidem 10 mg tablet (Ambien) 10 mg PO BEDTIME 10/18/22 05/01/23 History naloxone 4 mg/actuation nasal 4 mg intranasal Q3M PRN opioid 12/07/22 05/01/23 Rx spray (Narcan) overdose #2 ea oxycodone-acetaminophen 5 mg-325 1 tab PO BID PRN pain #60 tabs 12/04/23 Rx mg tablet (Percocet) tizanidine 4 mg capsule 4 mg PO .qhs PRN muscle spasticity 12/04/23 Rx #30 caps tizanidine 4 mg tablet 4 mg PO DAILY PRN muscle 12/12/23 Rx spasticity #30 tabs oxycodone-acetaminophen 5 mg-325 1 tab PO BID PRN pain #60 tabs 01/03/24 Rx mg tablet (Percocet) oxycodone-acetaminophen 5 mg-325 1 tab PO BID PRN pain #60 tabs 02/07/24 Rx mg tablet (Percocet) oxycodone-acetaminophen 5 mg-325 1 tab PO BID PRN pain #60 tabs 03/10/24 Rx mg tablet (Percocet) oxycodone-acetaminophen 5 mg-325 1 tab PO BID PRN pain #60 tabs 04/08/24 Rx mg tablet (Percocet) tizanidine 4 mg tablet 4 mg PO .hs PRN muscle spasticity 04/08/24 Rx #90 tabs oxycodone-acetaminophen 5 mg-325 1 tab PO BID PRN pain #60 tabs 05/07/24 Rx mg tablet (Percocet) oxycodone-acetaminophen 5 mg-325 1 tab PO TID PRN pain #60 tabs 05/07/24 Rx mg tablet (Percocet) oxycodone-acetaminophen 5 mg-325 1 tab PO BID PRN pain #60 tabs 06/13/24 Rx mg tablet (Percocet) tizanidine 4 mg tablet 4 mg PO .HS PRN muscle spasticity 06/26/24 Rx #30 tabs oxycodone-acetaminophen 5 mg-325 1 tab PO BID PRN pain #60 tabs 07/18/24 Rx mg tablet (Percocet) Allergies Allergy/AdvReac Type Severity Reaction Status Date / Time Penicillins Allergy Verified 04/12/23 08:23 prochlorperazine (From Allergy Verified 04/12/23 08:23 Compazine) Exam Constitutional Documenting provider has reviewed patient's vital signs: yes Common normals: no apparent distress, oriented x3, healthy appearing, alert and well nourished General appearance: cooperative HENHI Common normals: normocephalic, hearing grossly normal bilaterally and moist oral mucous membranes Head and scalp: normocephalic Eye Common normals: PERRL Pupil: PERRL Neck & C-Spine Common normals: full ROM General: normal visual inspection Chest Common normals: inspection of chest normal Respiratory Common normals: normal respiratory effort, no retractions and no use of accessory muscles Back & Pelvis Lumbar spine/lower back: pain with ROM, lumbar spinal tenderness, paraspinal muscle tenderness and straight leg raise positive right Sacroiliac joints: SI joint(s) abnormal Other: significant hyperalgesia strength 3/5 in BLE ratcheting and guarding noted Neuro Common normals: oriented x3 Sensorium/orientation: alert Psych Common normals: mental status grossly normal, thought process normal, affect normal, speech normal and activity/motor behavior normal Attitude: withdrawn and guarded Activity/motor behavior: avoids eye contact; no appropriate eye contact Speech: normal speech Thought process: normal thought process Results Additional Findings Additional findings: If on a controlled substance or opioids, I have checked an [place] report on this patient and there are no aberrancies noted in the prescribing history.??If on a controlled substance or opioid a drug screen was completed and reviewed within the last year, and if there has not been a drug screen completed we ordered one today to monitor higher risk, state monitored pain medication use. As part of providing excellent, safe, comprehensive care, the following was completed at our patient's visit: 1. A medication reconciliation and review to ensure accurate knowledge of current/active medications, including asking our patients to inform us about any cbvd-gli-fdgywhq medications or herbal remedies/nutritional supplements/alternative remedies. 2. A review to specifically ensure our patients have had annual screening for screening for depression, screening for tobacco use, and screening for unhealthy alcohol use. For concerning screenings had a discussion with the patient, provided patient education, and recommended follow-up with primary care provider when appropriate. If patient noted with a risk of falling, they received education on strength, gait, and balance training to prevent future risk of falling. Portions of this note may have been carried over from the previous visit and updated as appropriate. Please note this office utilizes paper charting in addition to the electronic medical record. A list of current medications, vitals, and PMH is available there as the clinical staff outside of myself do not have access to [employer] charting during the clinic day operations. As part of providing quality comprehensive care the current medications, vitals, and PMH were reviewed in the paper chart. Assessment and Plan Assessment and Plan (1) Lumbar stenosis with neurogenic claudication: Assessment and Plan: The patient has had over 3 months of moderate to severe back and leg pain with functional impairment and inadequate response to conservative care including NSAIDS (unless there are contraindication such as concurrent blood thinners), multiple oral or topical pain medications, and home exercise program/physical therapy.? Patient has completed >6 weeks of guided home exercise program and/or formal physical therapy program without relief of their symptoms.? I have reviewed the imaging of the lumbar spine and no red flags were identified.? The Oswestry Disability Index was completed, and the patient scored a 50%.? The patient noted the following:?? moderate to severe pain impacting ADLs, ability to stand, sit, walk, travel, sleep We discussed the risks and benefits of the procedure with the patient, and we are NOT planning on using sedation as outlined in the guidelines from Medicare unless there is a documented reason that sedation would be strongly recommended.?? ?The procedure will be completed with fluoroscopic guidance.? (2) Lumbar spondylosis: (3) Chronic prescription opiate use: (4) Knee osteoarthritis: Qualifiers: Osteoarthritis type: primary Laterality: bilateral Qualified Code(s): M17.0 - Bilateral primary osteoarthritis of knee (5) Muscle spasm: (6) Obesity: Qualifiers: Obesity type: due to excess calories Obesity classification: unspecified obesity classification Serious obesity comorbidity presence: unspecified whether serious comorbidity present Qualified Code(s): E66.09 - Other obesity due to excess calories Plan 59 year old female with significant low back and BLE pain/weakness. pt has failed to benefit from > 6 weeks of provider guided HEP and PT. hx of multilevel moderate stenosis, ddd, and lumbar spondylosis. recommend pt undergo right L4-5 L5-S1 TFESI under fluoroscopy and f/u in clinic with Dr Paredes. aquatherapy discussed and ordered for low back pain and lumbar stenosis with NC. pt reports benefit to current medication regimen although DIXIE remains uncontrolled and pt has significant hyperalgesia. denies side effects. although pt was cooperative she refused to make eye contact and provided minimal response to my questions, i believe she should f/u with Dr Paredes for further care moving forward as she was previously only seeing Dr Hernandez
== END 2024-07-30 10:02 | disposition home or self-care (01) ==
LOC: PM 10:01
PROVIDERS: Visit Provider Nurse Practitioner
DX: M48.062 Spinal stenosis, lumbar region with neurogenic claudication (principal); M47.816 Spondylosis without myelopathy or radiculopathy, lumbar region; Z79.891 Long term (current) use of opiate analgesic; M17.0 Bilateral primary osteoarthritis of knee; M62.838 Other muscle spasm; E66.09 Other obesity due to excess calories
CPT/HCPCS: G0463

== ENCOUNTER 2024-08-11 10:00 | Day surgery (SDC) | payer MEDICARE, MEDICAID, SELFPAY ==
[2024-08-11 10:28] VITALS: BP 138/73; PULSE 80; TEMP 36.3; O2SAT 99
[2024-08-11 10:34] LABS: Glucometer 101 mg/dL (74-106)
[2024-08-11 11:20] VITALS: BP 153/66; PULSE 85; O2SAT 91
[2024-08-11] MEDS: 0.9 % SODIUM CHLORIDE 10 ML SYRINGE - SALINE FLUSH INJ (11:22)
[2024-08-11] MEDS: LIDOCAINE HCL 2% 400 MG/20 ML MDV 3 ML INJ (11:22)
[2024-08-11] MEDS: IOHEXOL 240 MG/ML - 10 ML VIAL INJ (11:22)
[2024-08-11] MEDS: BUPIVACAINE HCL 0.25% PF 25 MG/10 ML VIAL INJ (11:22)
[2024-08-11 11:24] VITALS: PULSE 82; O2SAT 100
[2024-08-11 11:25] VITALS: BP 148/68
--- NOTE | 2024-08-11 11:26 | P.ON_ITS ---
Date of procedure: 08/11/24 Pre-op diagnosis: Pain due to lumbar stenosis with neurogenic claudication Post-op diagnosis: same as pre-op Procedure: Procedure: Right L4-5, L5-S1 transforaminal epidural steroid injection Medications: Bupivacaine 0.25% 2cc, lidocaine 2% 1cc, depomedrol 80mg The patient was seen and examined in the preoperative holding area.? Informed consent was obtained and placed on the chart.? Patient was brought to the medical procedure unit and placed in the prone position where a timeout was completed verifying the correct patient, procedure site, position, and planned special equipment using sterile aseptic technique.? Under direct fluoroscopic visualization a 25-gauge Quincke tipped spinal needle was advanced to the designated neural foramen where contrast dye was injected to show adequate spread.? The needle was inserted at level right L4-5. There was no evidence of vascular or adverse uptake.? Epidural spread was appreciated.? The above- mentioned injectate was then placed in a 1.5 mL aliquot preceded by negative aspiration.? The needle was removed. The needle was inserted and the procedure repeated at level right L5-S1.? The surgery site was covered.? Patient was taken to the postprocedural recovery area and monitored for an appropriate length of time before found suitable for discharge in the accompaniment of a responsible adult. Anesthesia: Local Surgeon: Efren Paredes Pathology: none sent Condition: stable Disposition: no change
[2024-08-11] MEDS: METHYLPREDNISOLONE ACETATE 40 MG/ML VIAL 80 MG INJ (11:32)
== END 2024-08-11 11:32 | disposition home or self-care (01) ==
LOC: SURGOUT 10:02
PROVIDERS: Visit Provider Anesthesiology
DX: M48.062 Spinal stenosis, lumbar region with neurogenic claudication (principal); M54.50 Low back pain, unspecified; E11.8 Type 2 diabetes mellitus with unspecified complications
CPT/HCPCS: 36415; 64483; 64484; 82948; J0665; J1010; Q9966

== ENCOUNTER 2024-08-25 12:59 | Outpatient (OUT) | payer MEDICARE, MEDICAID, SELFPAY ==
--- NOTE | 2024-08-25 13:47 | PM.CN ---
Consult Note: HPI Data of Consult Patient: known to practice within the last 3 years Consult date: 08/25/24 Requesting Physician: Efren Paredes MD Primary Care Provider: Kala Conte Consult Narrative Reason for consult: low back, right leg pain Narrative: 59yof who presents for assessment. notes significant, though temporary, relief after her recent lumbar tfesi. continues to have pain throughout low back and right leg. imaging reviewed, significant for multilevel moderate stenosis from L3-S1. uses pain meds as needed. continues in a series of provider directed home exercises >6 weeks, without benefit. denies adverse med side effects. cc:: CC: Efren Paredes MD Review of Systems ROS Status of ROS 10 or more systems reviewed and unremarkable except as noted in history and below [facility] Medical History Acid reflux ?K21.9 - Gastro-esophageal reflux disease without esophagitis (ICD-10) Low back pain ?M54.50 - Low back pain, unspecified (ICD-10) Hypertension ?I10 - Essential (primary) hypertension (ICD-10) Asthma ?J45.909 - Unspecified asthma, uncomplicated (ICD-10) Surgical History History of carpal tunnel release ?Z98.890 - Other specified postprocedural states (ICD-10) History of endometrial ablation ?Z98.890 - Other specified postprocedural states (ICD-10) History of lumbar surgery ?Z98.890 - Other specified postprocedural states (ICD-10) H/O abdominal hysterectomy ?Z90.710 - Acquired absence of both cervix and uterus (ICD-10) History of primary section ?Z98.891 - History of uterine scar from previous surgery (ICD-10) Hx of ventral hernia repair ?Z98.890 - Other specified postprocedural states (ICD-10) ?Z87.19 - Personal history of other diseases of the digestive system (ICD-10) Meds Home Medications and Allergies Home Medications ?Medication ?Instructions ?Recorded ?Confirmed ?Type albuterol sulfate 90 mcg/actuation 2 inh inhalation Q6H PRN shortness 10/18/22 08/11/24 History aerosol inhaler (Ventolin HFA) of breath bupropion HCl 150 mg tablet,12 hr 150 mg PO BID 10/18/22 08/11/24 History sustained-release (Wellbutrin SR) duloxetine 30 mg capsule,delayed 30 mg PO DAILY 10/18/22 08/11/24 History release (Cymbalta) spironolactone 25 mg tablet 25 mg PO DAILY 10/18/22 08/11/24 History zolpidem 10 mg tablet (Ambien) 10 mg PO BEDTIME 10/18/22 08/11/24 History naloxone 4 mg/actuation nasal 4 mg intranasal Q3M PRN opioid 12/07/22 08/11/24 Rx spray (Narcan) overdose #2 ea tizanidine 4 mg tablet 4 mg PO DAILY PRN muscle 12/12/23 08/11/24 Rx spasticity #30 tabs oxycodone-acetaminophen 5 mg-325 1 tab PO BID PRN pain #60 tabs 05/07/24 08/11/24 Rx mg tablet (Percocet) oxycodone-acetaminophen 5 mg-325 1 tab PO BID PRN pain #60 tabs 08/19/24 Rx mg tablet (Percocet) Allergies Allergy/AdvReac Type Severity Reaction Status Date / Time Penicillins Allergy Hives Verified 08/11/24 10:36 prochlorperazine (From Allergy JITTERY Verified 08/11/24 10:36 Compazine) Exam Narrative Exam Narrative: Psych-alert and oriented x 3. Attentive and appropriate, constitutionally normal, displays normal mood and affect per situation. There are no obvious deficits in memory, reasoning, or intellect.? Skin-no obvious rashes, bruising, erythema noted to the patient's area of pain.? Extremities- extremities are warm with minimal edema and palpable pulses. Lumbar-tenderness to palpation noted in the lumbar spine and paraspinal musculature. Pain is not elicited with flexion, extension, and lateral rotation of the lumbar spine. Range of motion is not diminished with these motions. Facet loading maneuvers are negative.? Strength-noted to be unremarkable with the exception of decreased strength rated at 4 out of 5 in right quadriceps femoris, anterior tibialis. Sensory-no notable sensory deficits in the bilateral lower extremities to touch or pinprick in all dermatomal distributions with the exception to decreased sensation to the right L3, 4, 5 dermatomal distribution Coordination remains intact.? Gait remains non-antalgic. Assessment and Plan Assessment and Plan (1) Lumbar stenosis with neurogenic claudication: (2) Lumbar postlaminectomy syndrome: Plan 59yof who presents for assessment. failed conservative measures, as noted. imaging reviewed, as noted. discussed that given her failure to respond to various measures, including therapy, medications, and injection, she would be a good candidate for scs trialing. provided her with info and she will think about this. medications reviewed, no changes. will follow up in 3 months or sooner, if needed.
== END 2024-08-25 13:00 | disposition home or self-care (01) ==
LOC: PM 13:00
PROVIDERS: Visit Provider Anesthesiology
DX: M48.062 Spinal stenosis, lumbar region with neurogenic claudication (principal); M96.1 Postlaminectomy syndrome, not elsewhere classified
CPT/HCPCS: G0463

== ENCOUNTER 2024-08-28 07:55 | Outpatient (OUT) | payer MEDICARE, MEDICAID, SELFPAY ==
--- NOTE | 2024-08-28 07:58 | CT_ITS ---
The [address] [address] Patient Name: FREDI RICHARDSON MRN: [id number] date: 1965 Sex: F Assigned Patient Location: CT Current Patient Location: CT Accession/Order Number: [id number] Exam Date: 08/28/2024 09:28 Report Date: 08/28/2024 09:30 At the request of: YESI LOWRY DO Procedure: CT lung screening low-dose CT CHEST WITHOUT CONTRAST, LOW DOSE SCREENING: CLINICAL DATA: A 59-year old former smoker COMPARISON: None TECHNIQUE: Noncontrast axial CT scan images of the chest were obtained under the low dose screening CT protocol. Coronal and sagittal reconstructed images were also submitted. FINDINGS: Mediastinum : Suboptimal evaluation due to low-dose technique. Thoracic aorta appears normal in caliber. Pulmonary trunk appears nondilated. No pericardial effusion. No lymphadenopathy. The esophagus is grossly unremarkable. Lungs: No focal consolidation, pneumothorax or pleural effusion. Trachea and distal airways appear patent. Mild lung scarring. No suspicious noncalcified pulmonary nodule or mass. Upper abdomen: No acute findings. Bony thorax and chest wall: Soft tissues surrounding the chest wall demonstrate no acute findings. Osseous structures demonstrate degenerative change. Fixation is seen involving the lower thoracic spine. CT/CT lung screening low-dose IMPRESSION: NO SUSPICIOUS PULMONARY NODULE OR MASS. LUNG - RADS Version 1.0 Assessment: Category 1, Negative (No nodules and definitely benign nodules). Management: Continue annual lung screening with LDCT in 12 months. Impression dictated by: Abel Mcgraw Jr., D.O. 08/28/2024 9:30 AM [facility]ictation [facility] Electron[facility] authenticated by: [id number] Y Date: 08/28/2024 09:30
[2024-08-28 08:18] LABS: Hemoglobin 13.4 g/dL (12.0-16.0)
--- NOTE | 2024-08-28 09:59 | RT_ITS ---
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 Findings were considered accurate and reproducible, with exception of DLCO which did not meet ATS standards. Both pre- and post-bronchodilator values utilized for spirometry. Spirometry: -FEV1/FVC: Normal @ 85% -FEV1: Normal @ 95% -FVC: Normal @ 88% Lung volumes by plethysmography: -RV: Reduced @ 40% -TLC: Moderately reduced @ 68% Diffusion capacity: -DLCO: Normal @ 81% when corrected for Hb 13.4g/dL Impressions: -Normal spirometry and diffusion capacity with reduced lung volumes. This can be seen in an obesity pattern (stated BMI 51.5) or neuromuscular weakness. Clinical correlation required. Electronically Signed On 09-01-2024 8:04:35 EDT by Goyo Tavares
== END 2024-08-28 07:56 | disposition home or self-care (01) ==
LOC: CT 07:55
PROVIDERS: Visit Provider Internal Medicine
DX: J45.50 Severe persistent asthma, uncomplicated (principal); Z87.891 Personal history of nicotine dependence; Z12.2 Encounter for screening for malignant neoplasm of respiratory organs
CPT/HCPCS: 36415; 71271; 85018; 94010; 94726; 94729

== ENCOUNTER 2024-11-24 13:32 | Outpatient (OUT) | payer MEDICARE, MEDICAID, SELFPAY ==
--- OUTSIDE RECORDS SUMMARY | 2024-11-24 13:34 | XMS_ITS | Encounter Summary ---
Author Organization [facility] Address [address] [place] [address] Care Team Providers Care Front Office Java Developer Name Role Phone Kala Conte MD Primary Care Provider [phone] Encounter Details Date Type Department Care Team (Latest Contact Info) Description 11/24/2024 Travel Social History Tobacco Use Types Packs/Day Years Used Date Smoking Tobacco: Never Smokeless Tobacco: Never Alcohol Use Standard Drinks/Week Comments Not Currently 0 (1 standard drink = 0.6 oz pure alcohol) caffeine intake: 1-2 cups per day AUDIT-C Answer Date Recorded Q1: How often do you have a drink containing alc ohol? 2-3 times a week 05/30/2023 Q2: How many drinks containi ng alcohol do you have on a typical day when you are drinking? 1 or 2 05/30/2023 Q3: How often do you have si x or more drinks on one occasion? Never 05/30/2023 Comments Unknown Sex and Gender Information Value Date Recorded Sex Assigned at Not on file Legal Sex Female 8:21 PM EDT Gender Identity Not on file Sexual Orientation Not on file documented as of this encounter Plan of Treatment Upcoming Encounters Date Type Department Care Team (Late st Contact Info) Description 11/26/2024 2:00 PM EDT Consult [facility] [address] [facility] [address] [place] [address] Niall Moore DO [address] [facility] [address] [place] [address] documented as of this encounter Visit Diagnoses Not on filedocumented in this encounter Care Teams Front Office Java Developer Relationship Specialty Start Date End Date Kala Conte MD [address] [place] [phone] PCP - General Pediatrics 05/30/23 documented as of this encounter
--- OUTSIDE RECORDS SUMMARY | 2024-11-24 13:34 | XMS_ITS | Clinical Summary ---
Author Organization [facility] Address [address] [place] [id number] Care Team Providers Care Director Of Sales Support Name Role Phone Kala Conte MD Primary Care Provider [phone] Judson White LEASING SALES CONSULTANT Unavailable Allergies Active Allergy Reactions Criticality Noted Date Comments Prochlorperazine Edisylate Mental Status Change 07/30/2013 Penicillins Hives 07/30/2013 Medications oxyCODONE-acetami nophen 5-325 mg tablet Take 1 tablet by mouth every 6 hours as needed. Active zolpidem 10 mg tab Take by mouth at bedtime as needed. Active ibuprofen 800 mg tablet Take 800 mg by mouth every 6 hours as needed. Active baclofen (LIORESAL) 10 mg tablet Take 10 mg by mouth. 8 Active OS-BRADEN 500+D 500 mg(1,250mg) -200 unit per tablet Take 1 tablet by mouth. 8 Active dicyclomine (BENTYL) 20 mg tablet Take 20 mg by mouth every 6 hours. 8 Active WOMEN'S ONE DAILY 18 mg iron-400 mcg-500 mg Ca tab Take by mouth. 8 Active spironolactone (ALDACTONE) 25 mg tablet Take 25 mg by mouth once daily. 8 Active traZODone (DESYREL) 50 mg tablet Take 50 mg by mouth. 8 Active citalopram hydrobromide (CELEXA) 10 mg tablet Take 10 mg by mouth once daily. Active Active Problems Problem Noted Date Diagnosed Date Fibroid uterus 09/01/2013 Immunizations Immunization Administration Dates Next Due hepatitis B (HepB) vaccine, 3-dose series, age 0 yr - 19 yr (ENGERIX B-PEDS, RECOMBIVAX HB-PEDS) 01/09/2012 influenza (IIV3) vaccine, tr ivalent, PF (AFLURIA, FLUARIX, FLULAVAL, FLUVIRIN, FLUZONE) 03/12/2017,02/15/2016,02/24/2015 influenza (ccIIV4) vaccine, age 6+ mo, quadrivalent, PF (FLUCELVAX) 02/20/2018 Family History Medical History Relation Comments Cancer Father prostate Diabetes Father Breast Cancer Mother Relation Status Comments Father Mother Social History Tobacco Use Types Packs/Day Years Used Date Smoking Tobacco: Former Cigarettes Smokeless Tobacco: Never Comments:quit 2012 Alcohol Use Standard Drinks/Week Comments Yes 0 (1 standard drink = 0.6 oz pur e alcohol) social PHQ-2 Answer Date Recorded PHQ-2 Score 0 03/02/2019 Area Deprivation Index Answer Date Jackson rded National Score (1-100), lower number is lower ri sk 75 11/06/2022 State Score (1-10), lower number is lower risk 6 11/06/2022 Data from: https://www.neighborhoodatlas.medicine.[facility].edu/. Last address used for calculation [address] 11/06/2022 Comments Unknown Sex and Gender Information Value Date Recorded Sex Assigned at Not on file Legal Sex Female 1:44 PM EDT Gender Identity Not on file Sexual Orientation Not on file Last Filed Vital Signs Vital Sign [place] Time Taken Comments Blood Pressure 147/90 08/14/2018 1:02 PM EDT Pulse 98 08/14/2018 1:02 PM EDT Temperature 37 C (98.6 F) 08/14/2018 1:02 PM EDT Respiratory Rate 18 08/14/2018 1:02 PM EDT Oxygen Saturation 98% 08/14/2018 1:02 PM EDT Inhaled Oxygen Concentration - - Weight 149.1 kg (328 lb 9.6 oz) 11/20/2022 9:32 AM EDT Height 162.6 cm (5' 4 ) 11/20/2022 9:32 AM EDT Body Mass Index 56.4 11/20/2022 9:32 AM EDT Plan of Treatment Health Maintenance Due Date Last Done Comments Anxiety Screening 07/15/1985 Depression Screening 07/15/1985 HIV Screening 07/15/1985 Hepatitis C Screening 07/15/1985 Hepatitis B Vaccine (1 of 3 - 19+ 3-dose series) 07/15/1986 01/09/2012 Cervical Cancer Screening 07/15/1988 CT Colonography 07/15/2012 Cologuard (FIT-DNA) 07/15/2012 Colonoscopy 07/15/2012 Colorectal Cancer Screening 07/15/2012 Fecal Occult Blood 07/15/2012 Lipid Screening 07/15/2012 Sigmoidoscopy 07/15/2012 Shingrix Vaccine (1 of 2) 07/15/2017 Mammogram Screening 11/03/2023 11/02/2022 Medicare Advantage Annual We llness Visit 04/23/2024 Influenza Vaccine (#1) 2024 , 05/11/2021, 03/26/2020, Additional history exists Diabetes Screening 06/26/2025 06/26/2022, 0 06/08/2022, 05/16/2022, Additional history exists Pneumococcal Vaccine: 50+ (3 of 3 - PCV20 or PCV21) 10/05/2027 10/04/2022, 02/18/2018 DTaP,Tdap,Td Vaccine (2 - Td or Tdap) 10/04/2032 10/04/2022 [place] [id number] DUAL COMPLETE HMO POS SNP Care Teams Director Of Sales Support Relationship Specialty Start Date End Date Kala Conte MD PCP - General Family Medicine 06/18/17 Judson White CNP Referring 08/28/22
--- OUTSIDE RECORDS SUMMARY | 2024-11-24 13:34 | XMS_ITS | Clinical Summary ---
Author Organization [facility] Address [address] [facility] [facility] [address], [address] [place] [address] Care Team Providers Care Quartz Cutter Name Role Phone Kala Conte MD Primary Care Provider [phone] Social History Tobacco Use Types Packs/Day Years Used Date Smoking Tobacco: Never Assessed Comments Unknown Sex and Gender Information Value Date Recorded Sex Assigned at Not on file Legal Sex Female 6:45 PM EST Gender Identity Not on file Sexual Orientation Not on file Plan of Treatment Health Maintenance Due Date Last Done Comments Depression Screen 1979 HIV screen 07/15/1982 Hepatitis C screen 07/15/1985 Hepatitis B vaccine (1 of 3 - 19+ 3-dose series) 07/15/1986 01/09/2012 Pap smear 07/15/1988 Cervical cancer screen 07/15/1997 HPV (without or with Pap) 07/15/1997 Lipids 2007 Colonoscopy 07/15/2012 Colorectal Cancer Screen 07/15/2012 FIT/FOBT: Average risk 07/15/2012 Fecal-DNA (Cologuard): Average risk 07/15/2012 Sigmoidoscopy/CT colonography 07/15/2012 Shingles vaccine (1 of 2) 07/15/2017 COVID-19 Vaccine ( season) 2023 Annual Wellness Visit (Medicare Advantage) 04/23/2024 Breast cancer screen 11/02/2024 11/02/2022, 05/11/2021, 12/17/2018 Flu vaccine (#1) 11/21/2024 02/27/2023, 10/2021, 05/11/2021, Additional history exists Pneumococcal 50+ years Vaccine (3 of 3 - PCV20 or PCV21) 10/05/2027 10/04/2022, 02/18/2018 DTaP/Tdap/Td vaccine (2 - Td or Tdap) 10/04/2032 10/04/2022 Pneumococcal 0-49 years Vaccine Discontinued 10/04/2022, 02/18/2018 Hepatitis A vaccine Aged Out No longe r eligible based on patient's age to complete this topic Hib vaccine Aged Out No longer eligi ble based on patient's age to complete this topic Meningococcal (ACWY) vaccine Aged Out No longer eligible based on patient's age to complete this topic Meningococcal B vaccine Aged Out No l onger eligible based on patient's age to complete this topic Polio vaccine Aged Out No longer elig ible based on patient's age to complete this topic Insurance [employer] MEDICARE MEDICAID [place] Care Teams Quartz Cutter Relationship Specialty Start Date End Date Kala Conte MD [address] [place], [place] [id number] PCP - General Family Medicine 09/27/23
--- OUTSIDE RECORDS SUMMARY | 2024-11-24 13:34 | XMS_ITS | Clinical Summary ---
Author Organization [facility] Address [address] [facility] [place] [address] Phone Care Team Providers Care Spindle Setter Name Role Phone Unavailable Primary Care Provider Unavailabl e Social History Tobacco Use Types Packs/Day Years Used Date Smoking Tobacco: Never Assessed Comments Unknown Sex and Gender Information Value Date Recorded Sex Assigned at Not on file Legal Sex Female 12:19 PM EST Gender Identity Not on file Sexual Orientation Not on file Plan of Treatment Not on file
--- OUTSIDE RECORDS SUMMARY | 2024-11-24 13:34 | XMS_ITS | Encounter Summary ---
Author Organization [facility] Address [facility] [id number] [address] [place] [address] Care Team Providers Care Applications Manager Name Role Phone Services, [facility] Primary Care Provider Encounter Details Date Type Department Care Team (Late st Contact Info) Description 03/31/2020 Orders Only [facility] [address] [place] [id number] External, Scanning Provider Social History Tobacco Use Types Packs/Day Years Used Date Smoking Tobacco: Former Smokeless Tobacco: Never Alcohol Use Standard Drinks/Week Comments Yes 0 (1 standard drink = 0.6 oz pur e alcohol) occasionally Childcare Answer Date Recorded Childcare Unknown 10/02/2018 Employment Answer Date Recorded Employment Unknown 10/02/2018 Comments No Sex and Gender Information Value Date Recorded Sex Assigned at Not on file Legal Sex Female 11:36 AM EDT Gender Identity Not on file Sexual Orientation Not on file documented as of this encounter Plan of Treatment Not on file documented as of this encounter Procedures Procedure Name Priority Date/Time Associated Diagnosis Comments MULTIPLE LABS Routine 11/24/2019 LIPID PROFILE Routine 11/24/2019 documented in this encounter Results * Multiple labs (11/24/2019) us Scanning Provider External [facility] Final Result MANUALLY TRANSCRIBED RESULTS * Lipid profile (11/24/2019) External Cholesterol 187 MANUALLY TRANSCRIBED RESULTS External Cholesterol:Hdl 3.6 MANUALLY TRANSCRIBED RESULTS External Hdl Cholesterol 52 MANUALLY TRANSCRIBED RESULTS External Ldl (Calc) 119 MANUALLY TRANSCRIBED RESULTS External Triglycerides 78 MANUALLY TRANSCRIBED RESULTS External Very Low Lipoprotein 16 MANUALLY TRANSCRIBED RESULTS us Scanning Provider External LAB BLOOD ORDERABLES Edited Result - Final MANUALLY TRANSCRIBED RESULTS documented in this encounter Visit Diagnoses Not on filedocumented in this encounter Additional Health Concerns Infection Onset Date Last Indicated Resolved Time COVID-19 Rule-Out 06/08/2022 06/08/2022 06/08/2022 4:00 PM EST documented as of this encounter Care Teams Applications Manager Relationship Specialty Start Date End Date Services, [facility] [address] [place], [place] PCP - General Family Medicine 08/27/24 documented as of this encounter
--- OUTSIDE RECORDS SUMMARY | 2024-11-24 13:34 | XMS_ITS | Clinical Summary ---
Author Organization [facility] tem Address [id number] [place] [address] Care Team Providers Care Button Sewer Hand Name Role Phone Services, [facility] Primary Care Provider Allergies Active Allergy Reactions Criticality Noted Date Comments Prochlorperazine Edisylate Anxiety Low 7 Penicillins Hives 11/27/2016 Prochlorperazine 01/02/2020 Medications spironolactone (ALDACTONE) 25 mg tablet Take 25 mg by mouth 2 (two) times a day. Active furosemide (LASIX) 40 mg tablet Take 40 mg by mouth as needed. Take 1.5 tab daily Active ibuprofen (ADVIL,MOTRIN) 800 mg tablet Take 800 mg by mouth every 8 (eight) hours as needed for pain. Active oxyCODONE-acetam inophen (PERCOCET) 5-325 mg per tablet Take 1 tablet by mouth as needed for pain. May take 1/2 to 1 tab every 12 hours as needed Active zolpidem (AMBIEN) 10 mg tablet Take 10 mg by mouth nightly as needed for sleep. Active OS-BRADEN 500 + D3 500 mg(1,250mg) -200 unit per tablet Take 1 tablet by mouth 2 (two) times a day. 8 Active diclofenac (VOLTAREN) 75 mg EC tablet Take 1 tablet by mouth 2 (two) times a day. 8 Active THERA-M 9 mg iron-400 mcg tablet Take 1 tablet by mouth daily. multivitamin 8 Active albuterol (VENTOLIN HFA) 90 mcg/actuation inhaler Inhale 1 puff every 6 (six) hours as needed. 8 Active buPROPion SR (WELLBUTRIN SR) 150 mg 12 hr tablet Take 150 mg by mouth 2 (two) times a day. 0 Active citalopram (CeleXA) 10 mg tablet Take 10 mg by mouth daily. Active DULoxetine (CYMBALTA) 30 mg capsule Take 30 mg by mouth daily. 0 Active triamcinolone (KENALOG) 0.025 % ointment Apply 1 application topically as needed. Active FLOVENT HFA 220 mcg/actuation inhaler Inhale 1 puff 2 (two) times a day. 0 Active ipratropium-albu teroL (DUONEB) 0.5 mg-3 mg(2.5 mg base)/3 mL nebulizerIndicat ions:Moderate persistent asthma with acute exacerbation Inhale 3 mL by nebulization in the morning and 3 mL at noon and 3 mL in the evening and 3 mL before bedtime. 360 mL 3 Active Additional Information Patient not taking.Reported on 06/26/2022 Active Problems Problem Noted Date Diagnosed Date Shortness of breath 04/29/2020 Abnormal myocardial perfusion study 04/29/2020 Essential hypertension 04/29/2020 Abnormal stress test 04/29/2020 Overview (04/29/2020): Added automatically from request for surgery [id number] Morbid obesity with BMI of 50.0-59.9, adult 12/22 Chronic obstructive pulmonary disease 01/02/2020 Lumbar stenosis 11/27/2016 Encounters Date Type Department Care Team Description 11/06/2024 9:50 AM EDT - 11/06/2024 11:59 PM EDT Hospital Encounter [facility] - Mammography/DEXA Imaging [address] [place] [id number] Abnormal findings on diagnostic imaging of breast Discharge Disposition: Home 11/06/2024 9:35 AM EDT - 11/06/2024 9:49 AM EDT Hospital Encounter [facility] - Ultrasound [address] [facility] [place] [address] Breast mass in female Discharge Disposition: Home 11/06/2024 Travel 10/30/2024 Travel 10/21/2024 2:27 PM EDT - 10/21/2024 11:59 PM EDT Hospital Encounter [facility] - Ultrasound [address] [place] [address] Nipple discharge Discharge Disposition: Home 10/21/2024 2:03 PM EDT - 10/21/2024 2:26 PM EDT Hospital Encounter [facility] - Mammography/DEXA Imaging [address] [place] [address] Nipple discharge Discharge Disposition: Home 10/21/2024 Travel 09/22/2024 Travel from Last 3 Months Family History Medical History Relation Name Comments Cancer Father Diabetes Father Asthma Mother Breast cancer Mother Cancer Mother Heart disease Mother Relation Name Status Comments Father Mother Social History Tobacco Use Types Packs/Day Years Used Date Smoking Tobacco: Former Cigarettes 1 1 2012 Smokeless Tobacco: Never Tobacco Cessation:Counseling Given: Not Answered Alcohol Use Standard Drinks/Week Comments Yes 0 (1 standard drink = 0.6 oz pur e alcohol) occasionally Childcare Answer Date Recorded Childcare Unknown 10/02/2018 Employment Answer Date Recorded Employment Unknown 10/02/2018 Hunger Screening Answer Date Recorded Within the past 12 months we worried whether our food would run out before we got money to buy more. Never True 06/26/2022 Within the past 12 months th e food we bought just didn't last and we didn't have money to get more. Never True 06/26/2022 Purpose - Life Answer Date Recorded Purpose and direction in life Unknown Comments No Sex and Gender Information Value Date Recorded Sex Assigned at Not on file Legal Sex Female 11:36 AM EDT Gender Identity Not on file Sexual Orientation Not on file Last Filed Vital Signs Vital Sign Reading Time Taken Comments Blood Pressure 143/88 08/30/2023 9:51 PM EDT Pulse 110 08/30/2023 9:51 PM EDT Temperature 36.8 C (98.3 F) 08/30/2023 9:51 PM EDT Respiratory Rate 20 08/30/2023 9:51 PM EDT Oxygen Saturation 100% 08/30/2023 9:51 PM EDT Inhaled Oxygen Concentration - - Weight 132.9 kg (293 lb) 10/21/2024 2:10 PM EDT Height 165.1 cm (5' 5 ) 10/21/2024 2:10 PM EDT Body Mass Index 48.76 10/21/2024 2:10 PM EDT Plan of Treatment Health Maintenance Due Date Last Done Comments Depression Screening 1977 Adult BMI Follow Up Plan 07/15/1985 COVID-19 Vaccine (2023- 5 season) 2023 04/01/2021, 08/27/2020, 07/30/2020 Tobacco Screening 08/29/2024 08/30/2023 Influenza Vaccine 12/22/2024 04/13/2024, , 03/29/2022, Additional history exists Adult BMI Screening 10/21/2025 10/21/2024 DTaP,Tdap and Td Vaccines (2 - Td or Tdap) 10/04/2032 10/04/2022 Zoster (Shingles) Vaccine Completed 07/12/2024, Medical Devices Implanted Type Area Furniture Designer Device Identifier Shelf Expiration Date Model / Serial / Lot Mesh Brd Ventralex Patch Med Rpl [id number] - Sna - [id number] Implanted:Qty: 1 on 10/16/2017 by Kartik Carmona DO at [facility] Mesh N/A: Abdomen DAVOL 08/19/2019 [id number] / NA / [id number] Marker Brstbio Hydromark Ti Opn Coil 18ga Mamtm Elt Prb Cor Mammotome Stereotactic - [id number] - [id number] Implanted:Qty: 1 on 11/06/2024 by Martín Jacinto MD at [facility] Other Implant Right: Breast [employer]IC[employer] MAMMOTOME 06/04/2027 [id number] 8-T3 / [id number] / [id number] D Description:Right breast ret roareolar Procedures Procedure Name Priority Date/Time Associated Diagnosis Comments MAMM POST BX DIAG UNI RT Routine 11/06/2024 10:35 AM EDT Abnormal findings on diagnostic imaging of breast US BX BREAST US GUID INITIAL RT Routine 11/06/2024 10:22 AM EDT Breast mass in female SURGICAL PATHOLOGY Routine 11/06/2024 10 :15 AM EDT Breast mass in female US BREAST RT LIMITED Routine 10/21/2024 2:39 PM EDT Nipple discharge MAMM DIAGNOSTIC BILATERAL W CAD Routine 10/21/2024 2:24 PM EDT Nipple discharge from Last 3 Months Results * Mammography post biopsy diagnostic unilateral right (11/06/2024 10:35 AM EDT) Anatomical Region Laterality Modality Breast Right Mammography 11/06/2024 3:35 PM EDT Narrative 11/06/2024 3:35 PM EDT EDDIE RICHARDSON 1965 [id number] EXAM: MAMM POST BX DIAG UNI RT, 11/06/2024 10:21 AM CLINICAL INDICATIONS: Abnormal findings on diagnostic imaging of breast, COMPARISON: Prior ultrasound of 10/21/2024 PERFORMING PHYSICIAN: Martín Jacinto MD Post procedure mammogram: A 2D CC and LM mammogram of the right breast was obtained for evaluation of postbiopsy clip placement. Images obtained in a separate room and evaluated on a dedicated mammography workstation. This demonstrates interval placement of a Hydromark T3 clip at biopsy site, appropriately positioned. There are surrounding post biopsy changes. IMPRESSION: 1. Technically successful ultrasound-guided biopsy of the right breast. Pathology is pending. Addendum will be issued when pathology results become available. 2. Post procedure mammograms for marker placement. BiRads: Post Biopsy Finalized by Martín Jacinto MD on 11/06/2024 3:35 PM 100 FDA Accredited Performing Facility: [facility] - Mammography/DEXA Imaging [address] [facility] [address] Procedure Note Martín Jacinto MD - 11/06/2024 EDDIE RICHARDSON 1965 [id number] EXAM: MAMM POST BX DIAG UNI RT, 11/06/2024 10:21 AM CLINICAL INDICATIONS: Abnormal findings on diagnostic imaging of breast, COMPARISON: Prior ultrasound of 10/21/2024 PERFORMING PHYSICIAN: Martín Jacinto MD Post procedure mammogram: A 2D CC and LM mammogram of the right breast was obtained for evaluationof postbiopsy clip placement. Images obtained in a separate room andevaluated on a dedicated mammography workstation. This demonstrates interval placement of a Hydromark T3 clip at biopsysite, appropriately positioned. There are surrounding post biopsy changes. IMPRESSION: 1. Technically successful ultrasound-guided biopsy of the right breast.Pathology is pending. Addendum will be issued when pathology resultsbecome available. 2. Post procedure mammograms for marker placement. BiRads: Post Biopsy Finalized by Martín Jacinto MD on 11/06/2024 3:35 PM 100 FDA Accredited Performing Facility: [facility] - Mammography/DEXA Imaging [address] [facility] [address] us Martín Jacinto MD IMG MAMMOGRAPHY ORDERABLES F inal Result * Ultrasound biopsy breast initial right (11/06/2024 10:22 AM EDT) Anatomical Region Laterality Modality Breast Right Ultrasound 11/06/2024 3:33 PM EDT Addenda Addendum by Martín Jacinto MD on 11/14/2024 7:33 AM EDT *ADDENDUM*Addendum issued for newly received pathology results, 11/14/2024 7:30 AM: For the right breast biopsy site there are pathology results of intraductal papilloma. See dedicated pathology report for further detail. This is concordant with the imaging findings. Procedure performed by Dr. Jacinot, addendum issued by Dr. Jacinto. Finalized by Martín Jacinto MD on 11/14/2024 7:33 AM 100 Narrative 11/06/2024 3:34 PM EDT EDDIE RICHARDSON 1965 [id number] EXAM: US BX BREAST US GUID INITIAL RT, 11/06/2024 9:35 AM CLINICAL INDICATIONS: Breast mass in female, COMPARISON: Prior ultrasound of 10/21/2024 PERFORMING PHYSICIAN: Martín Jacinto MD PROCEDURE: The risks, benefits, and alternatives of the procedure were explained in detail to the patient and both verbal and written informed consent were obtained. A timeout was performed verifying the correct patient, site and procedure. The patient was placed in a supine position on the US table. Preliminary sonographic evaluation confirmed the presence of the previously described right breast 12:00 position retroareolar. The skin was prepped and draped in usual sterile fashion. Local anesthesia was obtained using 5 mL 1%. Under ultrasound guidance, a 12-gauge vacuum assisted biopsy needle was placed within the mass and altered core biopsies were obtained. The biopsy device was removed, Hydromark T3 marker clip was placed under sonographic guidance, and handheld pressure was applied. The estimated blood loss is less than 1 mL. The patient tolerated the procedure well. There were no immediate complications. Post procedure mammogram: A 2D CC and LM mammogram of the right breast was obtained for evaluation of postbiopsy clip placement. Images obtained in a separate room and evaluated on a dedicated mammography workstation. This demonstrates interval placement of a Hydromark T3 clip at biopsy site, appropriately positioned. There are surrounding post biopsy changes. IMPRESSION: 1. Technically successful ultrasound-guided biopsy of the right breast. Pathology is pending. Addendum will be issued when pathology results become available. 2. Post procedure mammograms for marker placement. BiRads: Post Biopsy Finalized by Martín Jacinto MD on 11/06/2024 3:34 PM 100 Procedure Note Martín Jacinto MD - 11/06/2024 EDDIE RICHARDSON 1965 [id number] EXAM: US BX BREAST US GUID INITIAL RT, 11/06/2024 9:35 AM CLINICAL INDICATIONS: Breast mass in female, COMPARISON: Prior ultrasound of 10/21/2024 PERFORMING PHYSICIAN: Martín Jacinto MD PROCEDURE: The risks, benefits, and alternatives of the procedure wereexplained in detail to the patient and both verbal and written informedconsent were obtained. A timeout was performed verifying the correctpatient, site and procedure. The patient was placed in a supine position on the US table. Preliminarysonographic evaluation confirmed the presence of the previously describedright breast 12:00 position retroareolar. The skin was prepped and draped in usual sterile fashion. Local anesthesiawas obtained using 5 mL 1%. Under ultrasound guidance, a 12-gauge vacuumassisted biopsy needle was placed within the mass and altered corebiopsies were obtained. The biopsy device was removed, Hydromark T3 markerclip was placed under sonographic guidance, and handheld pressure was applied. Theestimated blood loss is less than 1 mL. The patient tolerated the procedure well. There were no immediatecomplications. Post procedure mammogram: A 2D CC and LM mammogram of the right breast was obtained for evaluationof postbiopsy clip placement. Images obtained in a separate room andevaluated on a dedicated mammography workstation. This demonstrates interval placement of a Hydromark T3 clip at biopsysite, appropriately positioned. There are surrounding post biopsy changes. IMPRESSION: 1. Technically successful ultrasound-guided biopsy of the right breast.Pathology is pending. Addendum will be issued when pathology resultsbecome available. 2. Post procedure mammograms for marker placement. BiRads: Post Biopsy Finalized by Martín Jacinto MD on 11/06/2024 3:34 PM 100 us Celeste Brooks MD [facility] US ORDERABLES Edited Resu lt - Final * Surgical Pathology (11/06/2024 10:15 AM EDT) Case Report Surgical Pathology Report Case: [id number] Authorizing Provider: Celeste Brooks MD Collected: 11/06/2024 1015 Ordering Location: [facility] Received: 11/06/2024 1042 [facility] - Ultrasound Pathologist: Yaritza Rubio MD Specimen: Breast, Right, Right breast retroareolar, Birads 4 11/11/2024 4:17 PM EDT [facility] Final Diagnosis Right breast, retroareolar, biopsy: BENIGN: 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 11/11/2024 4:17 PM EDT [facility] Gross Description Received in formalin labeled DYLAN, right breast retroareolar, Birads 4 are eight fibroadipose tissue cores ranging from 0.8-1.4 cm. Also within the container is a 1.3 x 0.7 x 0.1 cm aggregate of yellow, lobulated soft tissue bits. The cores are submitted entirely in cassettes 1A-B and the aggregated soft tissue is submitted in cassette 1C. Time incised: 1015 Time in formalin: 1025 Cold ischemic time: 10 minutes Time in formalin before processin.5 (3,ns,[id number] -1, m6.1) JL 11/11/2024 4:17 PM EDT [facility] Embedded Images 11/11/2024 4:17 PM EDT [facility] Tissue Right breast structure / Unknown 11/06/2024 10:15 AM EDT 11/06/2024 10:42 AM EDT us Celeste Brooks MD PATHOLOGY/CYTOLOGY ORDERABLES Final Result [facility] [address] [place] [address], [place] [phone] * (ABNORMAL) Ultrasound breast limited right (10/21/2024 2:39 PM EDT) Anatomical Region Laterality Modality Breast Right Ultrasound 10/21/2024 2:25 PM EDT Narrative 10/21/2024 3:01 PM EDT EDDIE RICHARDSON 1965 [id number], [id number] EXAM: MAMM DIAGNOSTIC BILATERAL W CAD, US BREAST RT LIMITED, 10/21/2024 2:03 PM CLINICAL INDICATIONS: Nipple discharge, red/brown. Bloody? COMPARISON: Prior mammograms most recently 11/05/2023 TECHNIQUE: Bilateral digital tomosynthesis MLO and CC views of the breasts were obtained, with creation of synthetic 2D views. Computer aided detection was utilized. FINDINGS: There are scattered areas of fibroglandular density. Stable ectatic ducts in the right retroareolar region. Targeted retroareolar ultrasound to follow. There are no suspicious masses, calcifications, or areas of architectural distortion. Right Breast Ultrasound, Limited TECHNIQUE: Multiple real-time mayfield-scale images of the right breast were performed. Color Doppler was utilized to assess vascular flow. FINDINGS: In the right retroareolar region at the 12:00 position hypoechoic, filled duct measuring up to 1.6 cm in length. Ultrasound-guided biopsy is recommended. COMBINED IMPRESSION: Ultrasound-guided biopsy of the hypoechoic filled duct at the 12:00 position right breast. BI-RADS: BI-RADS 4 - Suspicious RECOMMENDATION: Biopsy is recommended. RISK ASSESSMENT: TC Lifetime risk: 16.8%. The patient's reported personal and family medical history was used calculate their Tyrer-Cuzick lifetime risk of malignancy. Scores less than 20% are not considered high risk per ACR guidelines and patient should continue with the above recommendation. Patient was given the results before leaving the department. Finalized by Estrada Groves MD on 10/21/2024 3:01 PM 4 b BIOPSY Procedure Note Estrada Groves MD - 10/21/2024 EDDIE RICHARDSON 1965 [id number], [id number] EXAM: MAMM DIAGNOSTIC BILATERAL W CAD, US BREAST RT LIMITED, 10/21/2024 2:03PM CLINICAL INDICATIONS: Nipple discharge, red/brown. Bloody? COMPARISON: Prior mammograms most recently 11/05/2023 TECHNIQUE: Bilateral digital tomosynthesis MLO and CC views of the breastswere obtained, with creation of synthetic 2D views. Computer aideddetection was utilized. FINDINGS: There are scattered areas of fibroglandular density. Stable ectatic ducts in the right retroareolar region. Targetedretroareolar ultrasound to follow. There are no suspicious masses, calcifications, or areas of architecturaldistortion. Right Breast Ultrasound, Limited TECHNIQUE: Multiple real-time mayfield-scale images of the right breast wereperformed. Color Doppler was utilized to assess vascular flow. FINDINGS: In the right retroareolar region at the 12:00 position hypoechoic, filledduct measuring up to 1.6 cm in length. Ultrasound-guided biopsy isrecommended. COMBINED IMPRESSION: Ultrasound-guided biopsy of the hypoechoic filled duct at the 12:00position right breast. BI-RADS: BI-RADS 4 - Suspicious RECOMMENDATION: Biopsy is recommended. RISK ASSESSMENT: TC Lifetime risk: 16.8%. The patient's reported personal and family medical history was usedcalculate their Tyrer-Cuzick lifetime risk of malignancy. Scores less than20% are not considered high risk per ACR guidelines and patient shouldcontinue with the above recommendation. Patient was given the results before leaving the department. Finalized by Estrada Groves MD on 10/21/2024 3:01 PM 4 b BIOPSY us Celeste Brooks MD IM US ORDERABLES Final Resul t * (ABNORMAL) Mammography diagnostic bilateral with CAD (10/21/2024 2:24 PM EDT) Anatomical Region Laterality Modality Breast Bilateral Mammography 10/21/2024 2:25 PM EDT Narrative 10/21/2024 3:01 PM EDT EDDIE RICHARDSON 1965 [id number], [id number] EXAM: MAMM DIAGNOSTIC BILATERAL W CAD, US BREAST RT LIMITED, 10/21/2024 2:03 PM CLINICAL INDICATIONS: Nipple discharge, red/brown. Bloody? COMPARISON: Prior mammograms most recently 11/05/2023 TECHNIQUE: Bilateral digital tomosynthesis MLO and CC views of the breasts were obtained, with creation of synthetic 2D views. Computer aided detection was utilized. FINDINGS: There are scattered areas of fibroglandular density. Stable ectatic ducts in the right retroareolar region. Targeted retroareolar ultrasound to follow. There are no suspicious masses, calcifications, or areas of architectural distortion. Right Breast Ultrasound, Limited TECHNIQUE: Multiple real-time mayfield-scale images of the right breast were performed. Color Doppler was utilized to assess vascular flow. FINDINGS: In the right retroareolar region at the 12:00 position hypoechoic, filled duct measuring up to 1.6 cm in length. Ultrasound-guided biopsy is recommended. COMBINED IMPRESSION: Ultrasound-guided biopsy of the hypoechoic filled duct at the 12:00 position right breast. BI-RADS: BI-RADS 4 - Suspicious RECOMMENDATION: Biopsy is recommended. RISK ASSESSMENT: TC Lifetime risk: 16.8%. The patient's reported personal and family medical history was used calculate their Tyrer-Cuzick lifetime risk of malignancy. Scores less than 20% are not considered high risk per ACR guidelines and patient should continue with the above recommendation. Patient was given the results before leaving the department. Finalized by Estrada Groves MD on 10/21/2024 3:01 PM 4 b BIOPSY FDA Accredited Performing Facility: [facility] - Mammography/DEXA Imaging [address] [facility] [address] Procedure Note Estrada Groves MD - 10/21/2024 EDDIE RICHARDSON 1965 [id number], [id number] EXAM: MAMM DIAGNOSTIC BILATERAL W CAD, US BREAST RT LIMITED, 10/21/2024 2:03PM CLINICAL INDICATIONS: Nipple discharge, red/brown. Bloody? COMPARISON: Prior mammograms most recently 11/05/2023 TECHNIQUE: Bilateral digital tomosynthesis MLO and CC views of the breastswere obtained, with creation of synthetic 2D views. Computer aideddetection was utilized. FINDINGS: There are scattered areas of fibroglandular density. Stable ectatic ducts in the right retroareolar region. Targetedretroareolar ultrasound to follow. There are no suspicious masses, calcifications, or areas of architecturaldistortion. Right Breast Ultrasound, Limited TECHNIQUE: Multiple real-time mayfield-scale images of the right breast wereperformed. Color Doppler was utilized to assess vascular flow. FINDINGS: In the right retroareolar region at the 12:00 position hypoechoic, filledduct measuring up to 1.6 cm in length. Ultrasound-guided biopsy isrecommended. COMBINED IMPRESSION: Ultrasound-guided biopsy of the hypoechoic filled duct at the 12:00position right breast. BI-RADS: BI-RADS 4 - Suspicious RECOMMENDATION: Biopsy is recommended. RISK ASSESSMENT: TC Lifetime risk: 16.8%. The patient's reported personal and family medical history was usedcalculate their Tyrer-Cuzick lifetime risk of malignancy. Scores less than20% are not considered high risk per ACR guidelines and patient shouldcontinue with the above recommendation. Patient was given the results before leaving the department. Finalized by Estrada Groves MD on 10/21/2024 3:01 PM 4 b BIOPSY FDA Accredited Performing Facility: [facility] Mammography/DEXA Imaging [address] [facility] [address] us Celeste Brooks MD IMG MAMMOGRAPHY ORDERABLES Fi nal Result from Last 3 Months Insurance MEDICAID [place] [employer] MEDICARE Care Teams Button Sewer Hand Relationship Specialty Start Date End Date Services, [facility] [address] [place], [place] PCP - General Family Medicine 08/27/24
--- OUTSIDE RECORDS SUMMARY | 2024-11-24 13:34 | XMS_ITS | Encounter Summary ---
Author Organization [facility] Address [address] [facility], [address] [place] [address] Care Team Providers Care Sports Medicine Physician Name Role Phone Kala Conte MD Primary Care Provider [phone] Reason for Referral * Imaging (Routine) - Closed Specialty Diagnoses / Procedures Referred By Timmy singh Referred To Contact Radiology Diagnoses Acute left ankle pain Procedures MRI ANKLE LEFT WO CONTRAST Dorothea Clay APRN - CNP [address] [place] [address] Phone: tel: fax: Referral ID Status Reason Start Date Expiration Date Visits Re quested Visits Authorized [id number] Closed 09/10/2023 03/08/2024 1 1 Encounter Details Date Type Department Care Team (Latest Contact Info) Description 09/12/2023 Transcribe Orders [facility] [address] [place] [id number] Dorothea Clay APRN - OUTDOOR EMERGENCY CARE TECHNICIAN [address] [place] [address] Acute left ankle pain (Primary Dx) Social History Tobacco Use Types Packs/Day Years Used Date Smoking Tobacco: Never Assessed Comments Unknown Sex and Gender Information Value Date Recorded Sex Assigned at Not on file Legal Sex Female 6:45 PM EST Gender Identity Not on file Sexual Orientation Not on file documented as of this encounter Plan of Treatment Not on file documented as of this encounter Results * MRI ANKLE LEFT WO CONTRAST (09/27/2023 11:34 AM EDT) Anatomical Region Laterality Modality Leg, Ankle, Foot Magnetic Resona nce 09/27/2023 12:1 2 PM EDT Impressions 09/27/2023 3:19 PM EDT 1. Evidence of remote partial tearing of [...] fracture deformity of the proximal 5th metatarsal. Narrative 09/27/2023 3:19 PM EDT EXAMINATION: MRI OF THE LEFT ANKLE WITHOUT [...] ankle and foot. No organized fluid collection. Procedure Note Scottie Whitmore MD - 09/27/2023 EXAMINATION: MRI OF THE LEFT ANKLE WITHOUT CONTRAST, 09/27/2023 11:07 am TECHNIQUE: Multiplanar multisequence MRI of the left ankle was performed withoutthe administration of intravenous contrast. COMPARISON: None. HISTORY: ORDERING SYSTEM PROVIDED HISTORY: Acute left ankle pain 58-year-old female with acute left ankle pain FINDINGS: SYNDESMOTIC LIGAMENTS: The anterior-inferior tibiofibular ligament, interosseous membrane and posterior-inferior tibiofibular ligaments are normal. LATERAL COLLATERAL LIGAMENT COMPLEX: Evidence of remote partial tearingof the anterior talofibular ligament with associated avulsion fracture inthe region of the ATFL. Posterior talofibular ligament and calcaneofibular ligament appear continuous/intact. DELTOID LIGAMENT COMPLEX: Loss of the normal striations of the medialdeltoid ligament suggesting prior injury to the medial deltoid ligament complex without complete tear. SINUS TARSI AND SPRING LIGAMENT: Preservation of the sinus tarsi fat. MEDIAL TENDONS: The posterior tibialis, flexor digitorum longus andflexor hallucis longus tendons are intact. LATERAL TENDONS: [...] measuring up to 5 mm on image 18,series 3. Reactive marrow edema at the posterior calcaneal tuberosity. Severe distal Achilles enthesopathy. PLANTAR FASCIA: Mild plantar calcaneal spur. No plantar fasciitis orplantar fascial tear. TARSAL TUNNEL: There are no obstructing lesions within the tarsaltunnel. BONE MARROW: Subcortical cystic changes at the medial and lateral talardome. No large osteochondral lesion or defect at the talar dome. Osseousalignment is normal. No acute fracture or dislocation. No marginal erosions. Subcortical cystic changes at the midfoot and TMT joints. Bone marrow signal intensity otherwise grossly unremarkable.No tarsal coalition. Remote healed fracture deformity of the proximal 5th metatarsal. Ricky's deformity. JOINT SPACES: No sizable tibiotalar or subtalar effusion. Notalonavicular effusion. Mild degenerative changes of the midfoot and TMT joints. SOFT TISSUES: Mild to moderate edema in the subcutaneous fat about theankle and foot. No organized fluid collection. IMPRESSION: 1. Evidence of remote partial tearing of the ATFL with associatedavulsion fracture fragment. 2. Evidence of prior injury to the medial deltoid ligament complex. 3. Moderate to severe distal Achilles tendinosis with superimposed intermediate-grade partial tear of the distal Achilles tendon. Severedistal Achilles enthesopathy. Reactive marrow edema at the posterior calcaneal tuberosity. Ricky's deformity. 4. Mild plantar calcaneal spur. No plantar fasciitis. 5. Degenerative subcortical cystic changes as detailed above. Mild degenerative changes of the midfoot and TMT joints. 6. Mild to moderate edema in the subcutaneous fat about the ankle andfoot. 7. Remote healed fracture deformity of the proximal 5th metatarsal. us Dorothea Clay ICE PLATFORM SUPERVISOR - OUTDOOR EMERGENCY CARE TECHNICIAN IMG MRI ORDERABLES Fin al Result documented in this encounter Visit Diagnoses Diagnosis Acute left ankle pain- Primary Acute left ankle pain documented in this encounter Care Teams Sports Medicine Physician Relationship Specialty Start Date End Date Kala Conte MD [address] [place] [address] PCP - General Family Medicine 09/27/23 documented as of this encounter
--- OUTSIDE RECORDS SUMMARY | 2024-11-24 13:34 | XMS_ITS | Encounter Summary ---
Author Organization [facility] Address [address] [place] [address] Care Team Providers Care Risk Control Field Representative Name Role Phone Kala Conte MD Primary Care Provider [phone] Encounter Details Date Type Department Care Team (Latest Contact Info) Description 11/19/2024 Travel Social History Tobacco Use Types Packs/Day [...] PM EDT Consult [facility] [address] [facility] [address] [place] [address] Niall Moore DO [address] [facility] [address] [place] [address] documented as of this encounter Visit Diagnoses Not on filedocumented in this encounter Care Teams Risk Control Field Representative Relationship Specialty Start Date End Date Kala Conte MD [address] [place] [id number] PCP - General Pediatrics 05/30/23 documented as of this encounter
--- OUTSIDE RECORDS SUMMARY | 2024-11-24 13:34 | XMS_ITS | Continuity of Care Document ---
Author Organization [facility] Address [address] [place] [address] Problems Unknown Problems Results Test Value / Unit Interpretation Reference Ran SARS-COV-2 (COVID19), NAAT[[id number]] Collected: 05/03/2020 04:48 PM Specimen Received: 05/04/2020 06:25 PM SARS-CoV-2 INTERPRETATION [[id number]] Negative See Note SARS-CoV-2 RNA NOT DETECTEDN egative results do not preclude SARS-CoV-2 infection and should notbe used as the sole basis for patient management decisions. Negativeresults must be combined with clinical observations, patient history,and epidemiological information. Optimum specimen types and timingfor peak viral levels during infections caused by SARS-CoV-2 have notbeen determined. Collection of multiple specimens or types ofspecimens may be necessary to detect virus. Improper specimencollection and handling, sequence variability under primers/probes,or organism present below the limit of detection may lead to falsenegative results. Positive and negative predictive values oftesting are highly dependent on prevalence. False negative testresults are more likely when prevalence is high. SOURCE [[id number]] NASOPHARYNGEAL Note: Methodology is [employer] Real-Time RT-PCR. The expectedresult or reference range is NEGATIVE (Not Detected). For more information regarding COVID-19 testing to include clinicalinformation, methodology detail, intended use, FDA authorization andrecommended fact sheets for patients or healthcare providers, see NewPokitDok Announcement: SARS-CoV-2 (COVID-19) by NAAT at URL below (note,fact sheets are provided by method given in report:[email or web address]-communications/ Alternatively, see downloadable PDF fact sheet at:https://www.[employer]oz/CDOMF-10-RJ-PCR Allergies, adverse reactions, alerts No known allergies and adverse reactions Medications No administered medications reported Vital Signs No vital signs reported Social History No smoking Hx information available
--- OUTSIDE RECORDS SUMMARY | 2024-11-24 13:34 | XMS_ITS | Clinical Summary ---
Author Organization [facility] Address [address] [place] [address] Care Team Providers Care Collection Advisor Name Role Phone Kala Conte MD Primary Care Provider [phone] Allergies Active Allergy Reactions Criticality Noted Date Comments Penicillins Hives,Rash Low 07/30/2013 Prochlorperazine Anxiety Low 07/30/2013 Other Reaction(s): hives, Mental Status Change Medications albuterol (2.5 MG/3ML) 0.083% nebulizer solution Take 2.5 mg by nebulization every 6 (six) hours if needed Active albuterol HFA 90 mcg/act inhaler Inhale 2 puffs every 4 (four) hours if needed Active amLODIPine (Norvasc) 2.5 MG tablet Take 2.5 mg by mouth in the morning. 3 Active benralizumab (Fasenra) 30 MG/ML injection Inject 30 mg under the skin every 28 (twenty-eight) days 4 Active buPROPion SR (Wellbutrin SR) 150 MG 12 hr tablet Take 150 mg by mouth 1 (one) time each day at the same time Active cetirizine (ZyrTEC) 10 MG tablet Take 10 mg by mouth in the morning. Active citalopram (CeleXA) 10 MG tablet Take 10 mg by mouth in the morning. Active cyclobenzaprine (Flexeril) 10 MG tablet Take 1 tablet by mouth in the morning and 1 tablet in the evening and 1 tablet before bedtime. Active DULoxetine (Cymbalta) [address] capsule Take 30 mg by mouth 1 (one) time each day at the same time Active fluticasone (Flonase) 50 MCG/ACT nasal spray Administer 1 spray into each nostril 1 (one) time each day at the same time Active Advair HFA 230-21 MCG/ACT inhaler Inhale 2 puffs in the morning and 2 puffs before bedtime. 3 Active furosemide (Lasix) 40 MG tablet Take 40 mg by mouth in the morning. Active ibuprofen 800 MG tablet Take 800 mg by mouth in the morning and 800 mg in the evening and 800 mg before bedtime. Active Singulair 10 MG tablet Take 10 mg by mouth 1 (one) time each day at the same time Active spironolactone (Aldactone) 25 MG tablet Take 25 mg by mouth in the morning. 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/2023 Abnormal myocardial perfusion study 04/29/2020 Abnormal stress test 04/29/2020 Overview (05/16/2023): Added automatically from request for surgery [id number] Essential hypertension 04/29/2020 Shortness of breath 04/29/2020 Chronic obstructive pulmonary disease 01/02/2020 Lumbar stenosis 11/27/2016 Fibroid uterus 09/01/2013 Resolved Problems Problem Noted Date Diagnosed Date Resolved Date Morbid obesity with BMI of 50.0-59.9, adult 01/02/2020 05/16/2023 Encounters Date Type Department Care Team Description 11/24/2024 Travel 11/19/2024 Travel from Last 3 Months Family History Medical History Relation Name Comments Cancer Father Diabetes Father Cancer Mother Heart failure Mother Relation Name Status Comments Father Mother Social History Tobacco Use Types Packs/Day Years Used Date Smoking Tobacco: Never Smokeless Tobacco: Never Tobacco Cessation:Counseling Given: Not Answered Alcohol Use Standard Drinks/Week Comments Not Currently [...] Sign Reading Time Taken Comments Blood Pressure 143/85 05/30/2023 10:05 AM EST Pulse - - Temperature - - Respiratory Rate - - Oxygen Saturation - - Inhaled Oxygen Concentration - - Weight 154 kg (339 lb) 05/30/2023 10:05 AM EST Height 165.1 cm (5' 5 ) 05/30/2023 10:05 AM EST Body Mass Index 56.41 05/30/2023 10:05 AM EST Plan of Treatment Upcoming Encounters Date Type Department Care Team (Late st Contact Info) Description 11/26/2024 2:00 PM EDT Consult [facility] [address] [address] Niall Moore DO [address] [address] Health Maintenance Due Date Last Done Comments CT Colonography 1967 Colonoscopy 1967 Colorectal Cancer Screening 1967 FIT-DNA 1967 FIT 1967 FOBT 1967 Sigmoidoscopy 1967 Pap Smear 07/15/1988 Cervical Cancer Screening 07/15/1997 HPV/Cotest 07/15/1997 Influenza Vaccine (#1) 2024 , 02/27/2023, 03/29/2022, Additional history exists Mammogram 11/06/2025 11/06/2024, 07/0 04/2024, 11/05/2023, Additional history exists Insurance [employer] MEDICAID [place] Care Teams Collection Advisor Relationship Specialty Start Date End Date Kala Conte MD [address] [place], [place] [id number] PCP - General Pediatrics 05/30/23
--- OUTSIDE RECORDS SUMMARY | 2024-11-24 13:34 | XMS_ITS | Encounter Summary ---
Author Organization [facility] Address [id number] [place] [address] Care Team Providers Care Four [place] Stayer Machine Operator Name Role Phone Services, Formerly [facility], [facility] Primary Care Provider Encounter Details Date Type Department Care Team (Late st Contact Info) Description 04/29/2020 Orders Only [facility] [address] [place] [address] Keya Church RN Essential hypertension (Primary Dx); Abnormal myocardial perfusion study Social History Tobacco Use Types Packs/Day Years [...] on file Sexual Orientation Not on file COVID-19 Exposure Response Date Recorded In the last month, have you been in contact with someone who was confirmed or suspected to have Coronavirus / COVID-19? No / Unsure 04/29/2020 8:49 AM EST documented as of this encounter Plan of Treatment Not on file documented as of this encounter Results * (ABNORMAL) CBC auto differential (04/29/2020 10:01 AM EST) White Blood Cells 11.5(H) 4.0 - 11.0 X10E9/L 04/29/2020 1:55 PM [facility] RBC count 4.90 3.80 - 5.20 X10E12/L 04/29/2020 1:55 PM [facility] Hemoglobin 12.5 11.7 - 15.5 g/dL 04/29/2020 1:55 PM [facility] Hematocrit 39.1 35 - 47 % 04/29/2020 1:55 PM [facility] MCV 80 80 - 100 fL 04/29/2020 1:55 PM [facility] MCH 25.6(L) 27 - 34 pg 04/29/2020 1:55 PM [facility] MCHC 32.1 32 - 36 g/dL 04/29/2020 1:55 PM [facility] RDW 15.1(H) 11.5 - 15.0 % 04/29/2020 1:55 PM [facility] Platelets 358 150 - 450 X10E9/L 04/29/2020 1:55 PM [facility] MPV 9.3 7 - 12 fL 04/29/2020 1:55 PM [facility] % neutrophils 58.7 % 04/29/2020 1:55 PM [facility] % lymphocytes 29.9 % 04/29/2020 1:55 PM [facility] % monocytes 8.4 % 04/29/2020 1:55 PM [facility] % eosinophils 2.5 % 04/29/2020 1:55 PM [facility] % Basophils 0.5 % 04/29/2020 1:55 PM [facility] Neutrophils Absolute (A) 6.7(H) 1.5 - 6.6 X10E9/L 04/29/2020 1:55 PM [facility] Lymphocytes Absolute 3.4 1.0 - 3.5 X10E9/L 04/29/2020 1:55 PM [facility] Monocytes Absolute 1.0(H) 0 - 0.9 X10E9/L 04/29/2020 1:55 PM [facility] Eosinophils Absolute 0.3 0.0 - 0.4 X10E9/L 04/29/2020 1:55 PM [facility] Basophils Absolute 0.1 0.0 - 0.2 X10E9/L 04/29/2020 1:55 PM [facility] Serum / Unknown 04/29/2020 1 0:01 AM EST 04/29/2020 10:02 AM EST us Jenae Luna MD LAB BLOOD ORDERABLES Kat peña Result [facility] [address] [facility] [facility], [address] [place] [address] * (ABNORMAL) Basic Metabolic Panel (04/29/2020 10:01 AM EST) Sodium 143 134 - 146 mmol/L 04/29/2020 2:05 PM [facility] Potassium, Bld 3.9 3.5 - 5.0 mmol/L 04/29/2020 2:05 PM [facility] Chloride 107 98 - 109 mmol/L 04/29/2020 2:05 PM [facility] CO2 26 22 - 32 mmol/L 04/29/2020 2:05 PM [facility] Anion gap 10 5 - 15 mmol/L 04/29/2020 2:05 PM [facility] BUN 13 5 - 23 mg/dL 04/29/2020 2:05 PM [facility] Creatinine 0.91 0.40 - 1.00 mg/dL 04/29/2020 2:05 PM [facility] Comment:METHOD TRACEABLE TO IDMS STANDARD Glucose 120(H) 65 - 99 mg/dL 04/29/2020 2:05 PM [facility] Calcium 9.2 8.5 - 10.5 mg/dL 04/29/2020 2:05 PM [facility] GFR MDRD Non Af Amer >60 >59 ml/min/1.7 3sq.m 04/29/2020 2:05 PM EST [facility] GFR MDRD Af Amer >60 >59 ml/min/1.7 3sq.m 04/29/2020 2:05 PM EST [facility] Serum / Unknown 04/29/2020 1 0:01 AM EST 04/29/2020 10:02 AM EST us Jenae Luna MD LAB BLOOD ORDERABLES Kat peña Result [facility] [address] [facility], [address] [place] [address] documented in this encounter Visit Diagnoses Diagnosis Essential hypertension- Primary Unspecified essential hypertension Abnormal myocardial perfusion study documented in this encounter Additional Health Concerns Infection Onset Date Last Indicated Resolved Time COVID-19 Rule-Out 06/08/2022 06/08/2022 06/08/2022 4:00 PM EST documented as of this encounter Care Teams Four Corner Stayer Machine Operator Relationship Specialty Start Date End Date Services, [facility] [address] [place] PCP - General Family Medicine 08/27/24 documented as of this encounter
--- NOTE | 2024-11-24 13:58 | PM.CN ---
Consult Note: HPI Data of Consult Patient: known to practice within the last 3 years Consult date: 11/24/24 Requesting Physician: Efren Paredes MD Primary Care Provider: Kala Conte Consult Narrative Reason for consult: low back pain, left knee pain Narrative: 59yof who presents for assessment. notes persistence of low back pain. recently had fall at home, aggravated left knee, but states this is slowly improving. continues to use pain medicine as needed. denies adverse med side effects. cc:: CC: Efren Paredes MD Review of Systems ROS Status of ROS 10 or more systems reviewed and unremarkable except as noted in history and below PFSH PFSH Medical History Acid reflux ?K21.9 - Gastro-esophageal reflux disease without esophagitis (ICD-10) Low back pain ?M54.50 - Low back pain, unspecified (ICD-10) Hypertension ?I10 - Essential (primary) hypertension (ICD-10) Asthma ?J45.909 - Unspecified asthma, uncomplicated (ICD-10) Surgical History History of carpal tunnel release ?Z98.890 - Other specified postprocedural states (ICD-10) History of endometrial ablation ?Z98.890 - Other specified postprocedural states (ICD-10) History of lumbar surgery ?Z98.890 - Other specified postprocedural states (ICD-10) H/O abdominal hysterectomy ?Z90.710 - Acquired absence of both cervix and uterus (ICD-10) History of primary section ?Z98.891 - History of uterine scar from previous surgery (ICD-10) Hx of ventral hernia repair ?Z98.890 - Other specified postprocedural states (ICD-10) ?Z87.19 - Personal history of other diseases of the digestive system (ICD-10) Meds Home Medications and Allergies Home Medications ?Medication ?Instructions ?Recorded ?Confirmed ?Type albuterol sulfate 90 mcg/actuation 2 inh inhalation Q6H PRN shortness 10/18/22 08/11/24 History aerosol inhaler (Ventolin HFA) of breath bupropion HCl 150 mg tablet,12 hr 150 mg PO BID 10/18/22 08/11/24 History sustained-release (Wellbutrin SR) duloxetine 30 mg capsule,delayed 30 mg PO DAILY 10/18/22 08/11/24 History release (Cymbalta) spironolactone 25 mg tablet 25 mg PO DAILY 10/18/22 08/11/24 History zolpidem 10 mg tablet (Ambien) 10 mg PO BEDTIME 10/18/22 08/11/24 History naloxone 4 mg/actuation nasal 4 mg intranasal Q3M PRN opioid 12/07/22 08/11/24 Rx spray (Narcan) overdose #2 ea tizanidine 4 mg tablet 4 mg PO DAILY PRN muscle 12/12/23 08/11/24 Rx spasticity #30 tabs oxycodone-acetaminophen 5 mg-325 1 tab PO BID PRN pain #60 tabs 05/07/24 08/11/24 Rx mg tablet (Percocet) oxycodone-acetaminophen 5 mg-325 1 tab PO BID PRN pain #60 tabs 08/19/24 Rx mg tablet (Percocet) naloxone 4 mg/actuation nasal 4 mg intranasal Q2M PRN opioid 09/18/24 Rx spray (Narcan) overdose #1 ea oxycodone-acetaminophen 5 mg-325 1 tab PO BID PRN pain #60 tabs 09/18/24 Rx mg tablet (Percocet) oxycodone-acetaminophen 5 mg-325 1 tab PO BID PRN pain #60 tabs 10/31/24 Rx mg tablet (Percocet) Allergies Allergy/AdvReac Type Severity Reaction Status Date / Time Penicillins Allergy Hives Verified 08/11/24 10:36 prochlorperazine (From Allergy JITTERY Verified 08/11/24 10:36 Compazine) Exam Narrative Exam Narrative: Psych-alert and oriented x 3. Attentive and appropriate, constitutionally normal, displays normal mood and affect per situation.? There are no obvious deficits in memory, reasoning, or intellect.? Skin-no obvious rashes, bruising, erythema noted to the patient's area of pain. Extremities- extremities are warm with minimal edema and palpable pulses. Lumbar-no significant tenderness to palpation noted in the lumbar spine and paraspinal musculature.? Pain is elicited with extension, and lateral rotation of the lumbar spine. Range of motion is slightly diminished with these motions due to pain. Facet loading maneuvers are positive bilaterally and do appear to be concordant with the patient's normal complaints of pain.? Coordination remains intact.? Gait remains non-antalgic. Assessment and Plan Assessment and Plan (1) Lumbar postlaminectomy syndrome: (2) Lumbar stenosis with neurogenic claudication: Plan 59yof who presents for assessment. failed conservative measures. had previously discussed possibility of scs trial, given her history of back surgery and persistence of symptoms. she would like to hold off at this time. meds reviewed, will continue meds as before. because left knee is improving, will hold off on any further workup at this time. discussed that could explore this if pain worsened or persisted. follow up in 3 months or sooner, if needed.
== END 2024-11-24 13:33 | disposition home or self-care (01) ==
LOC: PM 13:32
PROVIDERS: Visit Provider Anesthesiology
DX: M96.1 Postlaminectomy syndrome, not elsewhere classified (principal); M48.062 Spinal stenosis, lumbar region with neurogenic claudication
CPT/HCPCS: G0463

== ENCOUNTER 2025-03-02 13:35 | Outpatient (OUT) | payer MEDICARE, MEDICAID, SELFPAY ==
--- OUTSIDE RECORDS SUMMARY | 2025-03-02 13:39 | XMS_ITS | Continuity of Care Document ---
Author Organization [facility] Address [address] [place] [address] Problems Unknown Problems Results Test Value / Unit Interpretation Reference Ran SARS-COV-2 (COVID19), NAAT[9 [id number]] Collected: 05/03/2020 04:48 PM Specimen Received: 05/04/2020 06:25 PM SARS-CoV-2 INTERPRETATION [[id number]] Negative See [id number] RNA NOT DETECTEDNegative results do not preclude SARS-CoV-2 infection and should notbe used as the sole basis for patient management decisions. Negativeresults must be combined with clinical observations, patient history,and epidemiological information. Optimum specimen types and timingfor peak viral levels during infections caused by SARS-CoV-2 have notbeen determined. Collection of multiple specimens or types ofspecimens may be necessary to detect virus. Improper specimencollectionand handling, sequence variability under primers/probes,or organism present below the limit of detec tion may lead to falsenegative results. Positive and negative predictive values oftesting are highly dependent on prevalence. False negative testresults are more likely when prevalence is high.SOURCE [[id number]]NASOPHARYNGEALNote: Methodology is [employer] Real-Time RT-PCR. The expectedresult or reference range is NEGATIVE (Not Detected). For more information regarding COVID-19 testing to include clinicalinformation, methodology detail, intended use, FDA authorization andrecommended fact sheets for patients or healthcare providers, see [employer]Test Announcement: SARS-CoV-2 (COVID-19) by NAAT at URL below (note,fact sheets are provided by method given in report:[email or web address]/Alternatively, see downloadable PDF fact sheet at:https://[email or web address]/UHTGN-71-KL-PCR Allergies, adverse reactions, alerts No known allergies and adverse reactions Medications No administered medications reported Vital Signs No vital signs reported Social History No smoking Hx information available
--- OUTSIDE RECORDS SUMMARY | 2025-03-02 13:39 | XMS_ITS | Clinical Summary ---
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 Role Phone Kala Conte MD Primary Care Provider [phone] Allergies Active AllergyReactionsCriticalityNoted DateCommentsPenicillinsHives,RashLow 07/30/20134683PhxkkwxijjwpfewfQgmyryuZug66/09/2014 Other Reaction(s): hives, Mental Status Change Medications MedicationSigDispense QuantityRefillsLast FilledStart DateEnd DateStatus albuterol (2.5 MG/3ML) 0.083% nebulizer solution Take 2.5 mg by nebulization every 6 (six) hours if neededActive albuterol HFA 90 mcg/act inhaler Inhale 2 puffs every 4 (four) hours if neededActive amLODIPine (Norvasc) 2.5 MG tablet Take 2.5 mg by mouth Daily01/03/2023ctive benralizumab (Fasenra) 30 MG/ML injection Inject 30 mg under the skin every 28 (twenty-eight) days05/08/2023ctive buPROPion SR (Wellbutrin SR) 150 MG 12 hr tablet Take 150 mg by mouth 1 (one) time each day at the same timeActive cetirizine (ZyrTEC) 10 MG tablet Take 10 mg by mouth DailyActive citalopram (CeleXA) 10 MG tablet Take 10 mg by mouth in the morning.Active cyclobenzaprine (Flexeril) 10 MG tablet Take 1 tablet by mouth in the morning and 1 tablet in the evening and 1 tablet before bedtime.Active DULoxetine (Cymbalta) [address] capsule Take 30 mg by mouth 1 (one) time each day at the same timeActive fluticasone (Flonase) 50 MCG/ACT nasal spray Administer 1 spray into each nostril 1 (one) time each day at the same time Active Advair HFA 230-21 MCG/ACT inhaler Inhale 2 puffs in the morning and 2 puffs before bedtime.3Active furosemide (Lasix) 40 MG tablet Take 40 mg by mouth DailyActive ibuprofen 800 MG tablet Take 800 mg by mouth in the morning and 800 mg in the evening and 800 mg before bedtime.Active Singulair 10 MG tablet Take 10 mg by mouth 1 (one) time each day at the same timeActive spironolactone (Aldactone) 25 MG tablet Take 25 mg by mouth DailyActive zolpidem (Ambien) 10 MG tablet Take 10 mg by mouth 1 (one) time each day at the same timeActive oxyCODONE-acetaminophen (Percocet) 5-325 MG tablet Take 1 tablet by mouth every 4 (four) hours if neededActive rosuvastatin (Crestor) 10 MG tablet Take 10 mg by mouth Daily5Active Mounjaro 5 MG/0.5ML solution auto-injector INJECT 5MG SUBCUTANEOUSLY ONCE A WEEK5Active tiZANidine (Zanaflex) 4 MG tablet Take 4 mg by mouth at bedtimeActive triamcinolone (Kenalog) 0.025 % ointment Apply 1 application topically if neededActive Active Problems ProblemNoted DateDiagnosed DateAbnormal finding on breast nqqiqpe7112/10/2024 Nipple edmsxatmr96/20/2025Intraductal papilloma of breast, right12/10/2024 Allergic abpfimpg96/24/2024hronic back pain05/16/2023egenerative thoracic spinal snssclau44/24/2024Nasal olcnfpyzup05/24/2024erichondritis of auricle, left05/16/2023bnormal myocardial perfusion study04/29/2020bnormal stress test 04/29/2020 Overview (05/16/2023): Added automatically from request for surgery [id number] Essential ifyhqudfhkqz32/07/2021hortness of nzshot88/07/2021Chronic obstructive pulmonary qsxibjk5501/02/2020Lumbar jmxwxxal56/07/2017Fibroid bzkyxk5709/01/2013 Resolved Problems ProblemNoted DateDiagnosed DateResolved DateMorbid obesity with BMI of 50.0- 59.9, adult Encounters DateTypeDepartmentCare MmtyHuaeybcmldn87/11/2025 11:30 AM EDTOffice Visit [facility] [address] [place] [phone] Niall Moore H, DO Intraductal papilloma of breast, right (Primary Dx)01/01/20254425Imdnkh40/05/2025 Orders Only [facility] [address] [place] [phone] Niall Moore H, DO 12/25/20248171Actswr62/02/2025External Result Encounter [facility] Unsolicited VenkateshkoNiall day H, DO 12/23/2024External Result Encounter [facility] External [facility] Unsolicited Itzkoshay Niall H, DO 12/19/2024External Result Encounter [facility] Unsolicited VenkateshkoDarrius daydric H, DO 12/16/2024External Result Encounter [facility] Unsolicited ItzkoDarrius daydric H, DO 12/16/2024External Result Encounter [facility] Unsolicited VenkateshkoDarrius daydric H, DO 12/16/2024External Result Encounter [facility] Unsolicited ItenidkoDarrius daydric H, DO 12/10/2024 2:00 PM EDTConsult [facility] [address] [place] [address] [address] [place] [phone] Niall Moore, Nipple discharge (Primary Dx); Intraductal papilloma of breast, right12/10/20242810Sksirz79/19/2025Travelfrom Last 3 Months Family History Medical HistoryRelationNameCommentsDiabetesFatherProstate cancerFatherBreast cancerMotherHeart failureMotherColon cancerNeg HxOvarian cancerNeg HxPancreatic cancerNeg HxRelationNameStatusCommentsBrotherno biological brothersFather DeceasedMotherDeceasedSisterno biological sisters Social History Tobacco UseTypesPacks/DayYears UsedDateSmoking Tobacco: FormerCigarettes Smokeless Tobacco: Never Tobacco Cessation:Counseling Given: Not Answered Alcohol UseStandard Drinks/WeekCommentsYes0 (1 standard drink = 0.6 oz pure alcohol)caffeine intake: 1-2 cups per dayAUDIT-CAnswerDate RecordedQ1: How often do you have a drink containing alcohol?2-3 times a week05/30/2023Q2: How many drinks containing alcohol do you have on a typical day when you are drinking?1 or Q3: How often do you have six or more drinks on one occasion?Never 05/30/2023CommentsUnknownSex and Gender InformationValueDate RecordedSex Assigned at BirthNot on fileLegal GcyJrjwvj14/15/2023 8:21 PM EDTGender Identity Not on fileSexual OrientationNot on file Last Filed Vital Signs Vital SignReadingTime TakenCommentsBlood Brylsulz531/9612/10/2024 2:03 PM EDT Pulse--Temperature--Respiratory Rate--Oxygen Saturation--Inhaled Oxygen Concentration--Trnqwl461 kg (294 lb)12/10/2024 2:03 PM XELRlthki362.1 cm (5' 5 ) 12/10/2024 2:03 PM EDTBody Mass Index48.9212/10/2024 2:03 PM EDT Plan of Treatment Health MaintenanceDue DateLast DoneCommentsCT Pigsykdcgiuq48/25/1968Colonoscopy 1967Colorectal Cancer Xragypyqy67/25/1968FIT-DNA1967FIT1967 FOBT1967 8366Htbuygdmbeyoo70/25/1968Pap Smear07/15/1988Cervical Cancer Wfqmmmiey96/25/1998HPV/Vrtnfn4307/15/1997COVID-19 Vaccine ( season) , 08/27/2020, 07/30/2020Influenza Vaccine (#1)2024 04/13/2024, 02/27/2023, 03/29/2022, Additional history vllktwAmogoqggz91/02/2026 12/23/2024, 11/06/2024, 10/21/2024, Additional history existsPneumococcal Vaccine: Pediatrics (0 to 5 Years) and At-Risk Patients (6 to 64 Years)Aged Out No longer eligible based on patient's age to complete this topic Procedures Procedure NamePriorityDate/TimeAssociated DiagnosisCommentsBI MAMMOGRAM DIAGNOSTIC RIGHT12/23/2024 12:04 PM EDT GENERAL SBYQBQQVWYrbjhmq28/02/2025 10:13 AM EDTGLUCOSE POCT GLUCOMETERSRoutine 12/23/2024 9:56 AM EDT BI US GUIDED BREAST LOCALIZATION AND BIOPSY RIGHT12/19/2024 1:51 PM EDT BASIC METABOLIC WXXKGMxnhweo94/26/2025 3:03 PM EDT CBC WITH AUTO TEKXDKGBFKQHJrbkkrc90/26/2025 3:03 PM EDT ECG 12-LEAD12/16/2024 2:55 PM EDT from Last 3 Months Results * Right diagnostic mammogram (12/23/2024 12:04 PM EDT)Anatomical Region LateralityModalityBreastRightMammographySpecimen (Source)Anatomical Location / LateralityCollection Method / VolumeCollection TimeReceived Time12/23/2024 12:04 PM EDT Narrative 12/23/2024 12:58 PM EDT [facility] ? [facility] ?[address] ?[place] [address] ?? [phone] ? Mammography Report ? Signed ? Patient: Rafi,Zesta B ?MR#: [id number] ?? 309 ? : 1965 ?Acct:[id number] ? Age/Sex: 59 / F ?Adm Date: 12/23/24 ? Loc: [place] ?Room: ?Type: REG SDC ?? Attending Dr: Niall Moore DO ? Ordering Provider: Niall Moore, DO ? Date of Service: 12/23/24 ? Procedure(s): MM surgical specimen RT ?? Accession Number(s): ([id number]) MM/MM surgical specimen RT: CLIP ? Copies to: ??NON STAFF ?? Niall Moore, DO ? CLINICAL INFORMATION: [Right] breast lumpectomy. ? SPECIMEN RADIOGRAPH: ? A single radiograph of the [right] breast specimen showed a metallic marking clip and radioiodine seed within the specimen. ? The images were reviewed by the attending surgeon during the procedure. ? Impression dictated by: Abel Mcgraw Jr., D.O. ??12/23/2024 12:05 PM ? Dictation Location: [facility] ? Dictated By: ?Abel Mcgraw Jr, DO ? 12/23/24 1204 ? Signed By: <Electronically signed by Abel Mcgraw Jr, DO in OV> ?12/23/24 1205 Procedure Note Abel Mcgraw Jr., DO - 12/23/2024 [place] [address] Mammography Report Signed Patient: Eddie Mckee BMR#: [id number] 309 : 1965Acct:[id number] Age/Sex: 59 / FAdm Date: 12/23/24 Loc: [place] Room:Type: [facility] Attending Dr: Niall Moore DO Ordering Provider: Niall Moore DO Date of Service: 12/23/24 Procedure(s): MM surgical specimen RT Accession Number(s): ([id number]) MM/MM surgical specimen RT: CLIP Copies to: NON STAFF Niall Moore DO CLINICAL INFORMATION: [Right] breast lumpectomy. SPECIMEN RADIOGRAPH: A single radiograph of the [right] breast specimen showed a metallicmarking clip and radioiodine seed within the specimen. The images were reviewed by the attending surgeon during the procedure. Impression dictated by: Abel Mcgraw Jr., D.O. 12/23/2024 12:05 PM Dictation Location: [facility] Dictated By: Abel Mcgraw Jr, DO 12/23/24 1204 Signed By: <Electronically signed by Abel Mcgraw Jr, DO inOV> 12/23/24 1205 Authorizing ProviderResult TypeResult StatusFredric Lo Oscar DOIMG BI PROCEDURESFinal Result * GENERAL PATHOLOGY (12/23/2024 10:13 AM EDT) Narrative Authorizing ProviderResult TypeResult StatusFredric Lo Oscar DOCLINISYNCFinal Result * GLUCOSE POCT GLUCOMETERS (12/23/2024 9:56 AM EDT)ComponentValueRef RangeTest MethodAnalysis TimePerformed AtPathologist SignatureGLUCOSE POC QTMDQFEZIEJ734 mg/dL12/23/2024 10:04 AM EDTFIRELANDSComment: Random Glucose Reference Range is dependent on time and content of last meal. Glucose of more than 200 mg/dL in a nonstressed, ambulatory subject supports the diagnosis of Diabetes Mellitus. OEXJLFR8Qsg6: Cleaned Meter12/23/2024 10:04 AM EDTFIRELANDSSpecimen (Source) Anatomical Location / LateralityCollection Method / VolumeCollection Time Received TimeBlood (Blood)12/23/2024 9:56 AM EDT12/23/2024 10:03 AM EDT Narrative Authorizing ProviderResult TypeResult StatusFredric Lo Oscar DOLAB BLOOD ORDERABLESFinal ResultPerforming OrganizationAddressCity/State/ZIP CodePhone Number [address] [address], [place] * Right US-guided breast localization and biopsy (12/19/2024 1:51 PM EDT) Anatomical RegionLateralityModalityBreastRightUltrasoundSpecimen (Source) Anatomical Location / LateralityCollection Method / VolumeCollection Time Received Time12/19/2024 1:51 PM EDT Impressions 12/19/2024 2:00 PM EDT STATUS POST RADIOIODINE SEED LOCALIZATION OF THE RIGHT BREAST. ? POSTPROCEDURE MAMMOGRAMS: ? Craniocaudal and mediolateral oblique views of the right breast were performed using low dose digital technique and compared to the previous right breast mammograms dated 11/06/2024. A small radioiodine seed is noted adjacent to a metallic marking clip. ? IMPRESSION: ? TECHNICALLY SUCCESSFUL ULTRASOUND GUIDED SEED LOCALIZATION OF THE RIGHT BREAST. ? RESULT CODE: NL ? Impression dictated by: Abel Mcgraw Jr., D.O. ??12/19/2024 1:58 PM ? Dictation Location: [facility] ? Tech: Grecia Juarezce; Анна Duonge ? Transcribed By: ? PWS ?12/19/24 1358 ? Dictated By: ?Abel Mcgraw Jr, DO ?12/19/24 1351 ? Signed By: <Electronically signed by Abel Mcgraw Jr, DO in OV> ?12/19/24 1358 Narrative 12/19/2024 2:00 PM EDT [facility] ?[facility] [place] ?[address] ? [place] [address] ? Ultrasound Report ? Signed ? Patient: Eddie Mckee ?MR#: [id number] ?? 309 ? : 1965 ?Acct:[id number] ? Age/Sex: 59 / F ?ADM Date: // ? Loc: [place] ?Room: ?Type: DEP SDC ?? Attending : Niall Itzkowitz DO ? Ordering Provider: Niall Moore DO ?? Date of Service: 12/19/24 ?? US/US breast needle loc RT: RIGHT BREAST MASS ?? ([id number]) MM/MM diagnostic mammo RT w/CAD: POST SEED PLACEMENT ? Copies to: Niall Moore DO ? ULTRASOUND GUIDED RADIOIODINE SEED LOCALIZATION OF THE RIGHT BREAST: ? CLINICAL DATA: Right breast papilloma ? PROCEDURE: ? Following sterile preparation and local anesthetics a needle containing of 0.144 ??Ci of iodine 125 was placed under the ultrasonographic guidance. ??Following confirmation of the tip of the needle position an Iodine seed was deployed. ??Adjacent to the needle entry the skin was marked ?? 1 SEED to indicate the seed localization. ??The patient tolerated the procedure well and left the department in stable condition. ? US/US breast needle loc RT ?? Procedure Note Able Mcgraw Jr., - 12/24/2024 [facility] [place] [address] [place] [address] Ultrasound Report Signed Patient: Eddie Mckee BMR#: [id number] 309 : 1965Acct:[id number] Age/Sex: 59 / FADM Date: 12/23/24 Loc: [place] Room:Type: [facility] Attending Dr: Niall Moore DO Ordering Provider: Niall Moore DO Date of Service: 12/19/24 US/US breast needle loc RT: RIGHT BREAST MASS ([id number]) MM/MM diagnostic mammo RT w/CAD: POST SEED PLACEMENT Copies to: Niall Moore DO ULTRASOUND GUIDED RADIOIODINE SEED LOCALIZATION OF THE RIGHT BREAST: CLINICAL DATA: Right breast papilloma PROCEDURE: Following sterile preparation and local anesthetics a needle containing of0.144 ??Ci of iodine 125 was placed under the ultrasonographic guidance. Following confirmation ofthe tip of the needle position an Iodine seed was deployed. Adjacent to the needle entry theskin was marked 1 SEED to indicate the seed localization. The patient tolerated the procedure welland left the department in stable condition. US/US breast needle loc RT IMPRESSION: STATUS POST RADIOIODINE SEED LOCALIZATION OF THE RIGHT BREAST. POSTPROCEDURE MAMMOGRAMS: Craniocaudal and mediolateral oblique views of the right breast wereperformed using low dose digital technique and compared to the previous right breast mammogramsdated 11/06/2024. A small radioiodine seed is noted adjacent to a metallic marking clip. IMPRESSION: TECHNICALLY SUCCESSFUL ULTRASOUND GUIDED SEED LOCALIZATION OF THE RIGHTBREAST. RESULT CODE: NL Impression dictated by: Abel Mcgraw Jr., DMatthewOMatthew 12/19/2024 1:58 PM Dictation Location: [facility] Tech: Grecia Cunningham; Анна Mcneil Transcribed By: PONCE 12/19/24 1358 Dictated By: Abel Mcgraw Jr, DO 12/19/24 1351 Signed By: <Electronically signed by Abel Mcgraw Jr, DO inOV> 12/19/24 1358 Authorizing ProviderResult TypeResult StatusFredric H Oscar DOIMG US PROCEDURESEdited Result - Final * CBC auto differential (12/16/2024 3:03 PM EDT)ComponentValueRef RangeTest MethodAnalysis TimePerformed AtPathologist SignatureWBC7.53.8 - 11.6 [CFU]/mL 12/16/2024 3:32 PM [facility] CtrUNCORRECTED WHITE BLOOD COUNT7.53.8 - 11.6 10*3/uL12/16/2024 3:32 PM [facility] RBC4.763.60 - 5.00 10*6/uL12/16/2024 3:32 PM [facility] UNNNGMIEBM11.711.8 - 15.4 g/dL12/16/2024 3:32 PM [facility] MpgHUZHWCXYOU05.934.0 - 46.4 %12/16/2024 3:32 PM [facility] StmXOJ05.880 - 100 fL12/16/2024 3:32 PM [facility] TkeQMX98.624.7 - 34.3 pg12/16/2024 3:32 PM [facility]tr MCHC32.532.0 - 35.0 g/dL12/16/2024 3:32 PM [facility]tr RED CELL DISTRIBUTION WIDTH, RDW14.511.9 - 15.3 %12/16/2024 3:32 PM [facility] CtrPLATELET MVPMY739896 - 450 10*3/12/16/2024 3:32 PM [facility] CtrMEAN PLATELET VOLUME, MPV8.96.3 - 10.7 fL12/16/2024 3:32 PM [facility] CtrNEUTROPHILS, %48.4. %12/16/2024 3:32 PM [facility] CtrLYMPHOCYTES, %42.1. % 12/16/2024 3:32 PM [facility] CtrMONOCYTE/MACROPHAGE, %9.4. %12/16/2024 3:32 PM [facility] CtrEOSINOPHILS, %0.0. % 12/16/2024 3:32 PM [facility] CtrBASOPHILS, %0.1. % 12/16/2024 3:32 PM [facility] CtrNRBC0.10 - 0.5 /100{WBC} 12/16/2024 3:32 PM [facility] CtrNEUTROPHILS3.71.8 - 7.7 10*3/12/16/2024 3:32 PM [facility] CtrLYMPHOCYTES3.21.00 - 4.8 10*3/12/16/2024 3:32 PM [facility] CtrMONOCYTES0.7 0.0 - 0.8 10*3/12/16/2024 3:32 PM [facility]tr EOSINOPHILS0.00.0 - 0.45 10*3/12/16/2024 3:32 PM [facility] CtrBASOPHILS0.00.0 - 0.2 10*3/12/16/2024 3:32 PM [facility] CtrSpecimen (Source)Anatomical Location / Laterality Collection Method / VolumeCollection TimeReceived TimeBlood (Blood)12/16/2024 3:03 PM EDT12/16/2024 3:21 PM EDT Narrative Authorizing ProviderResult TypeResult StatusFredric H Oscar ROSARIO BLOOD ORDERABLESFinal ResultPerforming OrganizationAddressCity/State/ZIP CodePhone Number [facility] [address] [place] [address], [facility] [address] [place] [address] * Basic metabolic panel (12/16/2024 3:03 PM EDT)ComponentValueRef RangeTest MethodAnalysis TimePerformed AtPathologist QlwcmbukgLxxumtl2608 - 100 mg/dL 12/16/2024 4:13 PM [facility] CtrComment: Random Glucose Reference Range is dependent on time and content of last meal. Glucose of more than 200 mg/dL in a nonstressed, ambulatory subject supports the diagnosis of Diabetes Mellitus. ADA recommended reference range ZYP736 - 25 mg/dL12/16/2024 4:13 PM [facility] CtrCREATININE 0.960.60 - 1.20 mg/dL12/16/2024 4:13 PM [facility]tr ESTIMATED GFR>60. 4:13 PM [facility] JibGvrblh866 136 - 145 mmol/L12/16/2024 4:13 PM [facility] CtrPotassium, Bld4.43.5 - 5.1 mmol/L12/16/2024 4:13 PM [facility]tr Muroyxbd35117 - 107 mmol/L12/16/2024 4:13 PM [facility] Carbon Raaurzp96.321.0 - 31.0 mmol/L12/16/2024 4:13 PM [facility] CtrAnion Gap8.16.0 - 15.008 4:13 PM [facility] CtrCalcium9.48.6 - 10.3 mg/dL12/16/2024 4:13 PM [facility] CtrSpecimen (Source)Anatomical Location / LateralityCollection Method / VolumeCollection TimeReceived TimeOtherTopography unknown / Jfdluss9912/16/2024 3:03 PM EDT12/16/2024 3:21 PM EDT Narrative Authorizing ProviderResult TypeResult StatusFredric H Oscar DOLAB BLOOD ORDERABLESFinal ResultPerforming OrganizationAddressCity/State/ZIP CodePhone Number [facility] [address] [place] [address], [facility] [address] [place] [address] * ECG 12 lead (12/16/2024 2:55 PM EDT)Specimen (Source)Anatomical Location / LateralityCollection Method / VolumeCollection TimeReceived Time12/16/2024 2:55 PM EDT Narrative [facility] - 12/17/2024 2:13 PM EDT [facility] ?[facility] ?[address] ? [place] [address] ? Electrocardiograph Report ? Signed ? Patient: Eddie Mckee B ?MR#: [id number] ?? 309 ? : 1965 ?Acct:[id number] ? Age/Sex: 59 / F ?ADM Date: 12/16/24 ? Loc: [place] ?Room: ?Type: DEP CLI ?? Attending Dr: Niall Moore DO ? Ordering Provider: Niall Moore, DO ?? Date of Service: 12/16/24 ?? ECG/ECG 12 lead ECG: surgery 12/23/24 ? Copies to: ? Test Reason : ?? Blood Pressure : ?? */* ?? mmHG ?? Vent. Rate : ??74 BPM ? Atrial Rate : ??74 BPM ? P-R Int : 148 ms ?QRS Dur : ??86 ms ?QT Int : 380 ms ? P-R-T Axes : ??70 ??37 ??40 degrees ?QTcB Int : 421 ms ? Normal sinus rhythm ?? Normal ECG ?? No previous ECGs available ?? Confirmed by Dayday Maynard ([id number]) on 12/17/2024 2:12:51 PM ? Referred By: ?Electronically Signed By: Dayday Maynard ? Transcribed By: ? MUS ? Signed By ? Dayday Maynard MD ?12/17/24 1412 Procedure Note Dayday Maynard MD - 12/17/2024 [facility] [address] Electrocardiograph Report Signed Patient: Eddie Mckee BMR#: [id number] 309 : 1965Acct:[id number] Age/Sex: 59 / FADM Date: 12/16/24 Loc: Room:Type: [facility] Attending Dr: Niall Moore DO Ordering Provider: Niall Moore DO Date of Service: 12/16/24 ECG/ECG 12 lead ECG: surgery 12/23/24 Copies to: Test Reason : Blood Pressure : */* mmHG Vent. Rate : 74 BPM Atrial Rate : 74 BPM P-R Int : 148 ms QRS Dur : 86 ms QT Int : 380 ms P-R-T Axes : 70 37 40 degrees QTcB Int : 421 ms Normal sinus rhythm Normal ECG No previous ECGs available Confirmed by Dayday Maynard ([id number]) on 12/17/2024 2:12:51 PM Referred By: Electronically Signed By: Dayday Maynard Transcribed By: MUS Signed By Dayday Maynard MD 12/17/24 1412 Authorizing ProviderResult TypeResult StatusFredric H Sinanzmaria teresa DOECG ORDERABLES Final ResultPerforming OrganizationAddressCity/State/ZIP CodePhone Number [facility] [address] [place] [address], [place] from Last 3 Months Insurance Care Teams Team MemberRelationshipSpecialtyStart DateEnd Kala Conte MD [address] [place] [address] PCP - GeneralPediatric05/30/23
--- OUTSIDE RECORDS SUMMARY | 2025-03-02 13:39 | XMS_ITS | Clinical Summary ---
Author Organization [facility] 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 Name Role Phone Kala Conte MD Primary Care Provider [phone] Active Problems ProblemNoted DateDiagnosed DateSevere persistent asthma, uncomplicatedPeripheral eosinophiliaOSA (obstructive sleep apnea)Elevated IgE levelSickle cell trait PrediabetesMorbid obesityLong term (current) use of inhaled steroids Encounters DateTypeDepartmentCare VvprNwndxndrvyn27/14/2025bstract [facility] [address] [place] [address] [address] [place] [id number] Goyo Tavares DO from Last 3 Months Family History Medical HistoryRelationNameCommentsCoronary Art DisFatherDiabetesFather HypertensionFatherStrokeFatherAsthmaMotherBreast CancerMotherCoronary Art Dis MotherRelationNameStatusCommentsFatherMother Social History Tobacco UseTypesPacks/DayYears UsedDateSmoking Tobacco: LjodwtSyqiujjpap2551569 - 2012Smokeless Tobacco: NeverAlcohol UseStandard Drinks/WeekCommentsNot Currently0 (1 standard drink = 0.6 oz pure alcohol)CommentsUnknownSex and Gender InformationValueDate RecordedSex Assigned at ZsdkuNxcpco04/14/2025 11:19 AM EDTLegal TczAeoliz84/10/2013 6:45 PM ESTGender XdejzjuqYiywmh06/14/2025 11:19 AM EDTSexual JoqndruwrzhDzbvwosr09/14/2025 11:19 AM EDT Plan of Treatment DateTypeDepartmentCare Team (Latest Contact Info)Mwcstrtksrc69/18/2025 11:00 AM ESTOffice Visit [facility] [address], [address] [place] [address] Goyo Tavares [address] [place] [address] ASTHMA-TX FROM [facility] MaintenanceDue DateLast GitjLfkqrgtjW0U test (Diabetic or Prediabetic)07/15/1977Depression Efwhpg4207/16/1979HIV svzwnb4807/15/1982 Hepatitis C cilxnm0007/15/1985Hepatitis B vaccine (1 of 3 - 19+ 3-dose series) Lipids07/16/20079624Afpwirvndjg14/25/2013Colorectal Cancer Ilivvp0707/15/2012FIT/FOBT: Average risk07/15/2012Fecal-DNA (Cologuard): Average risk07/15/2012Sigmoidoscopy/CT rhxtskgcahpk34/25/2013Lung Cancer Screening &/or Bohdgdzfro66/25/2018Shingles vaccine (1 of 2)07/15/2017Breast cancer screen /, 05/11/2021, 12/17/2018Annual Wellness Visit (Medicare Advantage)04/23/2024Flu vaccine (#1)/10/2022, 03/29/2022, 05/11/2021, Additional history existsCOVID-19 Vaccine ( - season) 2024Pneumococcal 50+ years Vaccine (3 of 3 - PCV20 or PCV21)10/05/2027 10/04/2022, 02/18/2018DTaP/Tdap/Td vaccine (2 - Td or Tdap) Pneumococcal 0-49 years YzenobtApdosasylqcl82/14/2023, 02/18/2018Hepatitis A vaccineAged OutNo longer eligible based on patient's age to complete this topic Hib vaccineAged OutNo longer eligible based on patient's age to complete this topicMeningococcal (ACWY) vaccineAged OutNo longer eligible based on patient's age to complete this topicMeningococcal B vaccineAged OutNo longer eligible based on patient's age to complete this topicPolio vaccineAged OutNo longer eligible based on patient's age to complete this topic Insurance * Guarantor: Eddie Mckee TypeRelation to PatientDate of BirthPhone Billing AddressPersonal/RmcezbFfam72/[birth year][address] [place] [address] Care Teams Team MemberRelationshipSpecialtyStart DateEnd Date Kala Conte MD [address] [place] [id number] PCP - GeneralFamily Medicine09/27/23
--- OUTSIDE RECORDS SUMMARY | 2025-03-02 13:39 | XMS_ITS | Clinical Summary ---
Author Organization [facility] Address [id number] [place] [address] Care Team Providers Care Greens Keeper Name Role Phone Services, [facility] Primary Care Provider Allergies Active AllergyReactionsCriticalityNoted DateCommentsProchlorperazine Edisylate RuwpixaBfi77/07/5468WlpxdvvbfkmQcrzm92/07/7166Qfsrjimlgcrmkirs61/11/2020 Medications MedicationSigDispense QuantityRefillsLast FilledStart DateEnd DateStatus spironolactone (ALDACTONE) 25 mg tablet Take 25 mg by mouth 2 (two) times a day.Active furosemide (LASIX) 40 mg tablet Take 40 mg by mouth as needed. Take 1.5 tab dailyActive ibuprofen (ADVIL,MOTRIN) 800 mg tablet Take 800 mg by mouth every 8 (eight) hours as needed for pain.Active oxyCODONE-acetaminophen (PERCOCET) 5-325 mg per tablet Take 1 tablet by mouth as needed for pain. May take 1/2 to 1 tab every 12 hours as needed Active zolpidem (AMBIEN) 10 mg tablet Take 10 mg by mouth nightly as needed for sleep.Active OS-BRADEN 500 + D3 500 mg(1,250mg) -200 unit per tablet Take 1 tablet by mouth 2 (two) times a day.09/03/2017Active diclofenac (VOLTAREN) 75 mg EC tablet Take 1 tablet by mouth 2 (two) times a day.07/28/2017Active THERA-M 9 mg iron-400 mcg tablet Take 1 tablet by mouth daily. multivitamin 09/03/2017Active albuterol (VENTOLIN HFA) 90 mcg/actuation inhaler Inhale 1 puff every 6 (six) hours as needed. 06/25/2017Active buPROPion SR (WELLBUTRIN SR) 150 mg 12 hr tablet Take 150 mg by mouth 2 (two) times a day.10/30/2019Active citalopram (CeleXA) 10 mg tablet Take 10 mg by mouth daily.Active DULoxetine (CYMBALTA) 30 mg capsule Take 30 mg by mouth daily.12/17/2019Active triamcinolone (KENALOG) 0.025 % ointment Apply 1 application topically as needed.Active FLOVENT HFA 220 mcg/actuation inhaler Inhale 1 puff 2 (two) times a day.03/29/2020Active ipratropium-albuteroL (DUONEB) 0.5 mg-3 mg(2.5 mg base)/3 mL nebulizer Indications:Moderate persistent asthma with acute exacerbationInhale 3 mL by nebulization in the morning and 3 mL at noon and 3 mL in the evening and 3 mL beforebedtime. 360 mL 3Active Additional Information Patient not taking.Reported on 06/26/2022 Active Problems ProblemNoted DateDiagnosed DateShortness of zztiwk3904/29/2020bnormal myocardial perfusion study04/29/2020ssential hjdcgtvvsxoo82/07/2021bnormal stress test 04/29/2020 Overview (04/29/2020): Added automatically from request for surgery [id number] Morbid obesity with BMI of 50.0-59.9, adult01/02/2020Chronic obstructive pulmonary rnfvzya7401/02/2020Lumbar mjqjutet97/07/2017 Family History Medical HistoryRelationNameCommentsCancerFatherDiabetesFatherAsthmaMotherBreast cancerMotherCancerMotherHeart diseaseMotherRelationNameStatusCommentsFather DeceasedMotherDeceased Social History Tobacco UseTypesPacks/DayYears UsedDateSmoking Tobacco: ZymwbwJnjayroxcj9294580 - 2012Smokeless Tobacco: Never Tobacco Cessation:Counseling Given: Not Answered Alcohol UseStandard Drinks/WeekCommentsYes0 (1 standard drink = 0.6 oz pure alcohol)occasionallyChildcareAnswerDate HochbgwyTsfrlymmfFykkeqs86/03/2019 EmploymentAnswerDate QpizubyzHlmjohsohbAavmszo46/12/2019Hunger ScreeningAnswer Date RecordedWithin the past 12 months we worried whether our food would run out before we got money to buy more.Never True06/26/2022Within the past 12 months the food we bought just didn't last and we didn't have money to get more.Never True3Purpose - LifeAnswerDate RecordedPurpose and direction in life Idaofzc07/12/2021CommentsNoSex and Gender InformationValueDate Recorded Sex Assigned at BirthNot on fileLegal ObjJzhmor20/06/2015 11:36 AM EDTGender IdentityNot on fileSexual OrientationNot on file Last Filed Vital Signs Vital SignReadingTime TakenCommentsBlood Ydcnkuaj619/8808/30/2023 9:51 PM EDT Jgwxz15205/09/2024 9:51 PM TBJQmzidmugudq88.8 ??C (98.3 ??F)08/30/2023 9:51 PM EDTRespiratory Xurj349608/30/2023 9:51 PM EDTOxygen Rjazsjnnrr983%08/30/2023 9:51 PM EDTInhaled Oxygen Concentration--Svcefk943.9 kg (293 lb)10/21/2024 2:10 PM DIPPdlmju641.1 cm (5' 5 )10/21/2024 2:10 PM EDTBody Mass Index48.76010/21/2024 2:10 PM EDT Plan of Treatment Health MaintenanceDue DateLast DoneCommentsDepression Uubanikpf02/25/1980Adult BMI Follow Up Plan07/15/1985Tobacco Lrjumjjzz38/OVID-19 Vaccine ( season)/01/2021, 08/27/2020, 07/30/2020 Influenza Bjwmtnu16/, 02/27/2023, 03/29/2022, Additional history existsAdult BMI Btechkvlg86DTaP,Tdap and Td Vaccines (2 - Td or Tdap)/Zoster (Shingles) VaccineCompleted 07/12/2024, 01/07/2024 Medical Devices ImplantedTypeAreaManufacturerDevice IdentifierShelf Expiration DateModel / Serial / LotYayoh Brd Ventralex Patch Med Rpl [id number] - Sna - [id number] Implanted:Qty: 1 on 10/16/2017 [facility] [id number] / NA / [id number] Brstbio Hydromark Ti Opn Coil 18ga Mamtm Elt Prb Cor Mammotome Stereotactic - [id number] - [id number] Implanted:Qty: 1 on 11/06/2024 by Martín Jacinto MD at [facility] ImplantRight: BreastDEVICOR MED PROD INC MAMMOTOME [id number] / [id number] / [id number]:Right breast retroareolar Insurance Care Teams Team MemberRelationshipSpecialtyStart DateEnd Date Services, [facility] [address] [place], [place] PCP - [facility]08/27/24
--- OUTSIDE RECORDS SUMMARY | 2025-03-02 13:39 | XMS_ITS | Clinical Summary ---
Author Organization [facility] Address [address] [place] [address] Care Team Providers Care Implementation Consultant Name Role Phone Kala Conte MD Primary Care Provider [phone] Judson White FERRYBOAT TICKET TAKER Unavailable Allergies Active AllergyReactionsCriticalityNoted DateCommentsProchlorperazine Edisylate Mental Status Ykaukl8907/30/20137170ZdjaxhmacewFcqlg33/09/2014 Medications MedicationSigDispense QuantityRefillsLast FilledStart DateEnd DateStatus oxyCODONE-acetaminophen 5-325 mg tablet Take 1 tablet by mouth every 6 hours as needed. Active zolpidem 10 mg tab Take by mouth at bedtime as needed.Active ibuprofen 800 mg tablet Take 800 mg by mouth every 6 hours as needed.Active baclofen (LIORESAL) 10 mg tablet Take 10 mg by mouth. 08/07/2017Active OS-BRADEN 500+D 500 mg(1,250mg) -200 unit per tablet Take 1 tablet by mouth. 08/07/2017Active dicyclomine (BENTYL) 20 mg tablet Take 20 mg by mouth every 6 hours. 05/30/2017Active WOMEN'S ONE DAILY 18 mg iron-400 mcg-500 mg Ca tab Take by mouth. 06/14/2017Active spironolactone (ALDACTONE) 25 mg tablet Take 25 mg by mouth once daily. 07/28/2017Active traZODone (DESYREL) 50 mg tablet Take 50 mg by mouth. 06/14/2017Active citalopram hydrobromide (CELEXA) 10 mg tablet Take 10 mg by mouth once daily.Active Active Problems ProblemNoted DateDiagnosed DateFibroid yykghd8809/01/2013 Immunizations ImmunizationAdministration DatesNext Duehepatitis B (HepB) vaccine, 3-dose series, age 0 yr - 19 yr (ENGERIX B-PEDS, RECOMBIVAX HB-PEDS)01/09/2012influenza (IIV3) vaccine, trivalent, PF (AFLURIA, FLUARIX, FLULAVAL, FLUVIRIN, FLUZONE) 03/12/2017,02/15/2016,02/24/2015influenza (ccIIV4) vaccine, age 6+ mo, quadrivalent, PF (FLUCELVAX)02/20/2018 Family History Medical HistoryRelationCommentsCancerFatherprostateDiabetesFatherBreast Cancer MotherRelationStatusCommentsFatherMother Social History Tobacco UseTypesPacks/DayYears UsedDateSmoking Tobacco: FormerCigarettes Smokeless Tobacco: Never Comments:quit 2012 Alcohol UseStandard Drinks/WeekCommentsYes0 (1 standard drink = 0.6 oz pure alcohol)socialPHQ-2AnswerDate RecordedPHQ-2 Exfmc53905/02/2018Area Deprivation IndexAnswerDate RecordedNational Score (1-100), lower number is lower risk75 11/06/2022State Score (1-10), lower number is lower lcxi2093Data from: https://www.neighborhoodatlas.medicine.[place] [employer].edu/. Last address used for [address]3CommentsUnknownSex and Gender InformationValueDate RecordedSex Assigned at BirthNot on fileLegal SexFemale 07/24/2013 1:44 PM EDTGender IdentityNot on fileSexual OrientationNot on file Last Filed Vital Signs Vital SignReadingTime TakenCommentsBlood Oevjerwl452/90008/14/2018 1:02 PM EDT Bsuxf6961/24/2019 1:02 PM QPSAllztqtazxc82 ??C (98.6 ??F)08/14/2018 1:02 PM EDT Respiratory Ycxx6588 1:02 PM EDTOxygen Geijdztiqr78%08/14/2018 1:02 PM EDTInhaled Oxygen Concentration--Lxvsrf109.1 kg (328 lb 9.6 oz)11/20/2022 9:32 AM HQDByihij598.6 cm (5' 4 )11/20/2022 9:32 AM EDTBody Mass Index56. 9:32 AM EDT Plan of Treatment Health MaintenanceDue DateLast DoneCommentsAnxiety Owvkrsuvi46/25/1986Depression Tnyfuzrab94/25/1986HIV Dxovqmgwd38/25/1986Hepatitis C Itcojmruc25/25/1986 Hepatitis B Vaccine (1 of 3 - 19+ 3-dose series)Cervical Cancer Revbqanzd04/25/1989CT Taagrrkxzvae05/25/2013Cologuard (FIT-DNA)07/15/2012 Vzpzgmjdoiy08/25/2013Colorectal Cancer Zrrgmfjws15/25/2013Fecal Occult Blood 07/15/2012Lipid Opnrsekvy06/25/6701Pugxalubigqis52/25/2013Shingrix Vaccine (1 of 2)07/15/2017Mammogram Lhivvujed64/Medicare Advantage Annual Wellness Visit5Covid-19 Vaccine ( season)2024 04/01/2021, 08/27/2020, 07/30/2020Influenza Vaccine (#1)/10/2021, 05/11/2021, 03/26/2020, Additional history existsDiabetes Gbdbwfyri64/06/2026 06/26/2022, 06/08/2022, 05/16/2022, Additional history existsPneumococcal Vaccine: 50+ (3 of 3 - PCV20 or PCV21), 02/18/2018 DTaP,Tdap,Td Vaccine (2 - Td or Tdap) Insurance Care Teams Team MemberRelationshipSpecialtyStart DateEnd Kala Conte MD PCP - GeneralFamily Medicine06/18/17 Judson White CNP 08/28/22
--- OUTSIDE RECORDS SUMMARY | 2025-03-02 13:39 | XMS_ITS | Clinical Summary ---
Author Organization [facility] Address [address] [place] [address] Phone Care Team Providers Care Security Compliance Specialist Name Role Phone Unavailable Primary Care Provider Unavailabl e Social History Tobacco UseTypesPacks/DayYears UsedDateSmoking Tobacco: Never Assessed CommentsUnknownSex and Gender InformationValueDate RecordedSex Assigned at Not on fileLegal UufThvezy99/25/2022 12:19 PM ESTGender IdentityNot on file Sexual OrientationNot on file Plan of Treatment Not on file
--- OUTSIDE RECORDS SUMMARY | 2025-03-02 13:52 | XMS_ITS | CCD ---
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 Name Role Phone ELGAFY, HOMERO K Unavailable [...] Admitting Unavailable PETERS ., [place] Consulting Unavailable [facility] Unava ilable [facility] Consulting Unava ilable LUKE ., DR CADENCE Hsu Attending Unavailable [facility] Unava ilable PETERS ., [place] Consulting Unavailable LUKE ., DR CADENCE Hsu Admitting Unavailable [facility] Unava ilable EDITH, DR SOTOMAYOR Attending Unavailable EDITH, DR SOTOMAYOR Admitting Unavailable PAY ., DR GRIMM Consulting Unavailable EDITH, DR SOTOMAYOR Consulting Unavailable TROTTDarius GIROLAMO Consulting Unavailable [facility] Unava ilable MARKER ., DR MENDOZA Attending Unavailable MARKER ., DR MENDOZA Admitting Unavailable MARKER ., DR MENDOZA Consulting Unavailable RISHABH MORENO Consulting Unavailable [facility] Unava ilable PETERS ., [place] Consulting Unavailable LUKE ., DR CADENCE Hsu Admitting Unavailable LUKE ., DR CADENCE Hsu Attending Unavailable [facility] Unava ilable PETERS ., [place] Consulting Unavailable LUKE ., DR CADENCE Hsu Attending Unavailable LUKE ., DR CADENCE Hsu Admitting Unavailable LUKE ., DR CADENCE Hsu Consulting Unavailable [facility] Unava ilable LUKE ., DR CADENCE Hsu Attending Unavailable LUKE ., DR CADENCE Hsu Admitting Unavailable [facility] Primary Care Unava ilable LORRAINE .[place] Consulting Unavailable LUKE ., DR CADENCE Hsu Attending Unavailable LUKE ., DR CADENCE Hsu Admitting Unavailable LUKE ., DR CADENCE Hsu Consulting Unavailable LUKE ., DR CADENCE Hsu Attending Unavailable [facility] Unava ilable LUKE ., DR CADENCE Hsu Admitting Unavailable [facility] Unava ilable LAKSHMIPATHY ., NARENDRANATH Admitting Emmanuelle vailable LAKSHMIPATHY ., NARTRELLATH Attending Emmanuelle vailable Conte, Kala Santo Primary Care Provider Judson White Unavailable Unavailable CONTE, KALA SANTO Primary Care Unavailable GISSEL YAÑEZ Attending Unavailabl e CONTE, KALA SANTO Primary Care Unavailable GISSEL YAEÑZ Referring Unavailabl e Timmis, Christine H Referring Unavailable Timmis, Christine H Attending Unavailable Timmis, Christine H Admitting Unavailable Kala Conte MD Primary Care Provider Kala Conte MD Primary Care Provider DOROTHEA NÚÑEZ Referring Unavailable CONTE, KALA L Primary Care Unavailable YESI JIMENEZ T Referring Unavailable CONTE, KALA L Primary Care Unavailable CONTE, KALA L Referring Unavailable CONTE, KALA L Primary Care Unavailable YESI JIMENEZ T Referring Unavailable CONTE, KALA L Primary Care Unavailable JIMENEZ, YESI T Referring Unavailable CONTE, KALA L Primary Care Unavailable JIMENEZ, YESI T Referring [facility] Primary Care Unava ilable BARBARA YESI T Referring Un[facility] Primary Care Unava ilable AUNDREA, TY C Referring Un[facility] Primary Care Unava ilable AUNDREA, TY C Referring Un[facility] Primary Care Unava ilable AUNDREA, TY C Referring Unavailable [facility] Primary Care Unava ilable AUNDREA, TY C Referring Unavailable [facility] Primary Care Unava ilable Lena CASTELLON, Efren Jose Attending Unavailable Lena CASTELLON, Efren oJse Attending Unavailable Lena CASTELLON, Efren Jose Attending Unavailable Prisca Michel DO Attending Provider NON STAFF Primary Care Provider Unavailabl e Itzkowifab, Prisca Attending Unavailable Itzkowitz, Prisca Admitting Unavailable NON STAFF Primary Care Unavailable Itzkowitz, Prisca Attending Unavailable Itzkowitz, Prisca Admitting Unavailable NON STAFF Primary Care Unavailable ITZKOWITZ, PRISCA H Attending Unavailable TY BROOKS Referring Unavailable ITZKOWITZ, PRISCA H Attending Unavailable Allergies Allergy ClassificationReported Allergen(s)Allergy TypeDate of OnsetReaction(s) Facility (1 source)penicillinDrug Uvufsay70-59-0393QQOBgiR[facility] (4 sources)prochlorperazine; Translations: [Compazine]Drug Vbxqrfu42-70-2016OUS [facility] Repository (20 sources)Penicillins; Translations: [penicillins]Drug -18-2739 Eruption of skin (disorder), Hives, RashExec[facility] (14 sources)Prochlorperazine; Translations: [prochlorperazine]Drug Allergy 14-54-7925Dmscsrp (qualifier value), Eruption of skin (disorder), Anxiety [facility] (5 sources)Prochlorperazine; Translations: [PROCHLORPERAZINE EDISYLATE]Drug Gixjbba14-36-2483Gfmppm Status ChangeGood [facility] (1 source)ProchlorperazineDrug Ycfegfv84-35-8148KqshdrjvkReg[facility] Medications Current Medications MedicationDrug Class(es)DatesSig (Normalized)Sig (Original)acetaminophen 325 mg / oxyCODONE hydrochloride 5 mg oral tablet (17 sources)Opioid AgonistStart: 04-11-2017 End: 05-65-0135mabn 1 tablet by mouth twice daily as needed for painOxycodone- Acetaminophen (Percocet) 5-325 mg Tablet Active 1 TAB PO Twice daily as needed for Pain January 20, 2021 12:00am Complies with drug therapytake 1 tablet by mouth every four hours as neededoxyCODONE-acetaminophen (Percocet) 5-325 MG tablet Take 1 tablet by mouth every 4 (four) hours if needed Activetake 1 tablet by mouth every six hours as neededoxyCODONE-acetaminophen 5-325 mg tablet Take 1 tablet by mouth every 6 hours as needed. 0 ActiveComment on above:Take 1 tablet by mouth every 6 hours as needed. sensor 200 actuat albuterol 0.09 mg/actuat dry powder inhaler (17 sources)beta2-Adrenergic AgonistStart: 49-38-0939Gbumcnzxc Sulfate 90 mcg/actuation Aero Powdr Breath Act W/Sensor Active 2 INH INHALATION Four times daily as needed for asthma January 20, 2021 12:00am Complies with drug therapyalbuterol (2.5 MG/3ML) 0.083% nebulizer solution Take 2.5 mg by nebulization every 6 (six) hours ifneeded Activetake 2 puff(s) by inhalation every four hoursalbuterol HFA 90 mcg/act inhaler Inhale 2 puffs every 4 (four) hours if needed ActiveamLODIPine 2.5 mg oral tablet (7 sources)Dihydropyridine Calcium Channel BlockerStart: 59-89-6951esgi 1 tablet by mouth once dailyamLODIPine (Norvasc) 2.5 MG tablet Take 2.5 mg by mouth Daily 01/03/2023 Active1 ml benralizumab 30 mg/ml auto-injector (9 sources)Interleukin-5 Receptor alpha-directed Cytolytic AntibodyStart: 87-23-8218Qjwbfvzmtlpo (Fasenra Pen) 30 mg/mL auto-injector Active 30 MG SUBCUT EVERY 8 WEEKS December 16, 2024 12:00am Complies with drug therapyStart: 50-04-0454yfhdqczonjlr (Fasenra) 30 MG/ML injection Inject 30 mg under the skin every 28 (twenty-eight) days 05/08/2023 Iledpl68 hr buPROPion hydrochloride 150 mg extended release oral tablet (11 sources)AminoketoneStart: 94-14-1050ivkw 1 tablet by mouth twice daily Wellbutrin SR 150 mg Tab-ER 150 mg = 1 tab(s), Oral, BID, Refills(s) 0 Start Date: 01/25/21 Status: OrderedStart: 16-43-2951ktzk 1 tablet by mouth twice daily Bupropion Hcl (Wellbutrin Xl) 150 mg Tablet Extended Release 24 Hr Active 150 MG PO Twice daily January 20, 2021 12:00am Complies with drug therapytake 1 tablet by mouth once dailybuPROPion SR (Wellbutrin SR) 150 MG 12 hr tablet Take 150 mg by mouth 1 (one) time each day at the same time Activecalcium carbonate 1250 mg oral tablet (1 source)Start: 67-06-3239hbmj 1 tablet by mouth twice dailyOs-Braden 500 oral tablet 1,250 mg = 1 tab(s), Oral, BID, Refills(s) 0 Start Date: 01/25/21 Status: OrderedCalcium Carbonate-Vitamin D3 (Os-Braden 500 + D3) 500 mg(1,250mg) -200 unit Tablet (1 source)Start: 26-90-9104gmje 1 tablet by mouth twice dailyCalcium Carbonate- Vitamin D3 (Os-Braden 500 + D3) 500 mg(1,250mg) -200 unit Tablet Active 1 TAB PO Twice daily January 20, 2021 12:00amcetirizine hydrochloride 10 mg oral tablet (7 sources)Histamine-1 Receptor Antagonisttake 1 tablet by mouth once daily cetirizine (ZyrTEC) 10 MG tablet Take 10 mg by mouth Daily Activeciprofloxacin 750 mg oral tablet (1 source)Quinolone AntimicrobialStart: 05-16-2023 End: 39-34-4356fdcy 1 tablet by mouth in the morningciprofloxacin (Cipro) 750 MG tablet Indications: Perichondritis of auricle, left Take 1 tablet (750mg) by mouth in the morning and 1 tablet (750 mg) before bedtime. Do all this for 10 days. 20 tablet 0 05/16/2023 05/30/2023 Discontinued (Therapy completed) citalopram 10 mg oral tablet (10 sources)Serotonin Reuptake Inhibitortake 1 tablet by mouth in the morning citalopram (CeleXA) 10 MG tablet Take 10 mg by mouth in the morning. Active Comment on above:Take 10 mg by mouth once daily.cyclobenzaprine hydrochloride 10 mg oral tablet (7 sources)Muscle Relaxanttake 1 tablet by mouth in the morning, then take 1 tablet by mouth in the evening, then take 1 tablet by mouth at bedtime cyclobenzaprine (Flexeril) 10 MG tablet Take 1 tablet by mouth in the morning and 1 tablet in the evening and 1 tablet before bedtime. ActiveCymbalta 30 mg Cap-DR (1 source)Start: 63-44-8618vebp 1 capsule by mouth once dailyCymbalta 30 mg Cap- DR 30 mg, Oral, Daily, Refills(s) 0 Start Date: 01/25/21 Status: Ordered DULoxetine 30 mg delayed release oral capsule (10 sources)Serotonin and Norepinephrine Reuptake InhibitorStart: 60-91-7698uwqq 1 capsule by mouth once daily at bedtimeDuloxetine (Cymbalta) 30 mg Capsule,Delayed Release(Dr/Ec) Active 30 MG PO Daily at bedtime January 20, 2021 12:00am Complies with drug therapyestradiol 0.1 mg/g vaginal cream (1 source)Start: 02-29-5415nlcxmaxgc 0.1 mg/g vaginal cream See Instructions, apply pea-size amount with fingertips vaginally nightly x 2 wks then 3x per week thereafter, # 42.5 gm, Refills(s) 11, Pharmacy: [id number], 163, cm, 04/14/21 10:37:00 EST, Height/Length Dosing, 148, kg, 04/14/21 10:37:00... Start Date: 04/14/21 Status: Iwgydvb509 actuat fluticasone propionate 0.22 mg/actuat metered dose inhaler (8 sources)CorticosteroidStart: 80-25-8546kzgf 1 puff(s) by inhalation twice dailyFlovent HFA 220 Aerosol = 1 puff(s), Inhalation, BID, Refills(s) 0 Start Date: 01/25/21 Status: Orderedtake 1 spray(s) nasal route once dailyfluticasone (Flonase) 50 MCG/ACT nasal spray Administer 1 spray into each nostril 1 (one) time eachday at the same time Zwburh794 actuat fluticasone propionate 0.23 mg/actuat / salmeterol 0.021 mg/actuat metered dose inhaler (7 sources)Corticosteroid, beta2-Adrenergic AgonistStart: 78-97-2871ehdi 2 puff(s) by inhalation in the morningAdvair HFA 230-21 MCG/ACT inhaler Inhale 2 puffs in the morning and 2 puffs before bedtime. 04/22/2023 Activefluticasone 0.05 mg/inh Nasal [place] (1 source)Start: 37-19-6231djivbisrrrr 0.05 mg/inh Nasal [place] Refill(s) 0 Start Date: 04/14/21 Status: Orderedibuprofen 600 mg oral tablet (14 sources)Nonsteroidal Anti-inflammatory DrugStart: 29-61-0272ttto 4 tablets by mouth every twenty-four hours for painStart: 34-67-4732Moqriclhv 800 tablet Active 800 MG PO As Directed as needed for Severe Pain (Scale Score 7-10) Dece2016 1:00am Complies with drug therapyComment on above:Take 800 mg by mouth every 6 hours as needed.montelukast 10 mg oral tablet (7 sources)Leukotriene Receptor Antagonisttake 1 tablet by mouth once daily Singulair 10 MG tablet Take 10 mg by mouth 1 (one) time each day at the same time ActiveMounjaro 5 MG/0.5ML solution auto-injector (6 sources)Start: 65-45-2085oqivdf 5 mg by subcutaneous injection every week Mounjaro 5 MG/0.5ML solution auto-injector INJECT 5MG SUBCUTANEOUSLY ONCE A WEEK 12/02/2024 ActiveMultivitamin, Therapeutic w/ Minerals (1 source)Start: 95-06-1445ytos 1 tablet by mouth once dailyMultivitamin, Therapeutic w/ Minerals 1 tab(s), Oral, Daily, Refill(s) 0 Start Date: 01/25/21 Status: Orderedrosuvastatin calcium 10 mg oral tablet (6 sources)HMG-CoA Reductase InhibitorStart: 20-44-0890tiha 1 tablet by mouth once dailyrosuvastatin (Crestor) 10 MG tablet Take 10 mg by mouth Daily 09/17/2024 ActiveTirzepatide (2 sources)Start: 00-77-7427Tewsaffcexw (Mounjaro) 5 mg/0.5 mL pen injector Active 5 MG SUBCUT every week December 16, 2024 12:00am Complies with drug therapyStart: 82-92-5968bzXXStjxzn 4 mg oral capsule (10 sources)Central alpha-2 Adrenergic AgonistStart: 00-87-8221pkan 1 capsule by mouth once dailytizanidine 4 mg oral capsule 4 mg = 1 cap(s), Oral, Daily, Refills(s) 0 Start Date: 01/25/21 Status:OrderedStart: 39-64-1980sfva 1 tablet by mouth once daily at bedtime as neededTizanidine 4 mg Tablet Active 4 MG PO Daily at bedtime as needed for muscle spasticity January 20, 2021 12:00am Complies with drug therapyzolpidem tartrate 10 mg oral tablet (14 sources)gamma-Aminobutyric Acid-ergic AgonistStart: 51-50-5185lpiy 1 tablet by mouth once daily at bedtime as neededZolpidem 10 tablet Active 10 MG PO Daily at bedtime as needed for Insomnia April 11, 2017 1:00am Complies with drug therapyComment on above:Take by mouth at bedtime as needed. Completed/Discontinued Medications MedicationDrug Class(es)DatesSig (Normalized)Sig (Original)baclofen 10 mg oral tablet (3 sources)gamma-Aminobutyric Acid-ergic AgonistStart: 59-92-4792bzvrjvjn (LIORESAL) 10 mg tablet Take 10 mg by mouth. 0 08/07/2017 ActiveComment on above:Take 10 mg by mouth. 5 ml bupivacaine hydrochloride 5 mg/ml injection (2 sources)Amide Local AnestheticStart: 11-20-2022 End: 48-61-8850YDUjxhnyexv (PF) 0.5 % (5 mg/mL) 4 mL injectioncalcium carbonate 1250 mg / cholecalciferol 200 unt oral tablet (5 sources)Vitamin DStart: 01-20-2021 End: 04-88-7388mocm 1 tablet by mouth twice dailyCalcium Carbonate-Vitamin D3 (Os-Braden 500 + D3) 500 mg(1,250mg) -200 unit Tablet Discontinued 1 TAB PO Twice daily January 20, 2021 12:00am December 16, 2024 3:24pmStart: 06-59-1348rocr 1 tablet by mouth onceOS-BRADEN 500+D 500 mg(1,250mg) -200 unit per tablet Take 1 tablet by mouth. 0 08/07/2017 ActiveComment on above:Take 1 tablet by mouth. dicyclomine hydrochloride 20 mg oral tablet (3 sources)AnticholinergicStart: 23-51-0590mfec 1 tablet by mouth every six hoursdicyclomine (BENTYL) 20 mg tablet Take 20 mg by mouth every 6 hours. 0 05/30/2017 ActiveComment on above:Take 20 mg by mouth every 6 hours. furosemide 40 mg oral tablet (10 sources)Loop DiureticStart: 04-11-2017 End: 58-77-3588cwnb 1 tablet by mouth twice dailyFurosemide 40 tablet Discontinued 40 MG PO Twice daily April 11, 2017 1:00am January 20 10:59amtake 1 tablet by mouth once dailyfurosemide (Lasix) 40 MG tablet Take 40 mg by mouth Daily Mxulbz39 ml lidocaine hydrochloride 10 mg/ml injection (2 sources)Antiarrhythmic, Amide Local AnestheticStart: 11-20-2022 End: 39-65-9782mbkaekkaa (PF) 10 mg/mL (1 %) 4 mL injection (XYLOCAINE) Multivitamin (Multiple Vitamin) Tablet (3 sources)Start: 01-20-2021 End: 94-79-9743omoi 1 tablet by mouth twice dailyMultivitamin (Multiple Vitamin) Tablet Discontinued 1 TAB PO Twice daily January 20, 2021 12:00am December 16, 2024 3:25pmStart: 32-77-2479rrys 1 tablet by mouth twice dailyMultivitamin (Multiple Vitamin) Tablet Active 1 TAB PO Twice daily January 20, 2021 12:00amspironolactone 25 mg oral tablet (14 sources)Aldosterone AntagonistStart: 59-77-9773wpkp 1 tablet by mouth once dailyspironolactone (ALDACTONE) 25 mg tablet Take 25 mg by mouth once daily. 0 07/28/2017 ActiveStart: 40-34-8941gmbf 1 tablet by mouth twice daily Spironolactone 25 tablet Active 25 MG PO Twice daily April 11, 2017 1:00am Complies with drug therapyComment on above:Take 25 mg by mouth once daily. traZODone hydrochloride 50 mg oral tablet (3 sources)Serotonin Reuptake InhibitorStart: 42-46-4388opsRTQvni (DESYREL) 50 mg tablet Take 50 mg by mouth. 0 06/14/2017 ActiveComment on above:Take 50 mg by mouth. 1 ml triamcinolone acetonide 40 mg/ml injection (8 sources)CorticosteroidStart: 11-20-2022 End: 08-22-4678romjrioagqyqz acetonide 80 mg injection (KeNALog 40)triamcinolone (Kenalog) 0.025 % ointment Apply 1 application topically if needed ActiveWOMEN'S ONE DAILY 18 mg iron-400 mcg-500 mg Ca tab (3 sources)Start: 82-45-5990YDSEJ'S ONE DAILY 18 mg iron-400 mcg-500 mg Ca tab Take by mouth. 0 06/14/2017 ActiveComment on above:Take by mouth. Problems Active Problems Problem ClassificationProblemDateDocumented DateEpisodic/ChronicAbdominal pain (3 sources)Right lower quadrant pain; Translations: [Right lower quadrant pain] 53-52-3777JovsnykyWarvnn (3 sources)Asthma; Translations: [Unspecified asthma with (acute) exacerbation] Onset: 427457-39-7862VmecrelAtfmedn kidney disease (1 source)Chronic kidney disease, unspecified; Translations: [CHRONIC KIDNEY DISEASE UNSPECIFIED]Onset: 71-20-3084KcgfmygXgixulk obstructive pulmonary disease and bronchiectasis (7 sources)Chronic obstructive lung disease; Translations: [Chronic obstructive pulmonary disease, unspecified]Onset: 400296-71-2691NmzvbpeYlafzoaunm and other anemia (4 sources)Anemia; Translations: [Anemia, unspecified]18-90-6293Qgbmngub Deficiency and other anemia (3 sources)Iron deficiency anemia; Translations: [Iron deficiency anemia, unspecified]46-23-2922IrcddzqbCtsumqvj mellitus with complications (1 source)Type 2 diabetes mellitus with diabetic chronic kidney disease; Translations: [TYPE 2 DM W/DIABETIC CKD]Onset: 37-02-2885FvdbppcRljrqtgtk hypertension (8 sources)Hypertensive disorder; Translations: [Essential hypertension]Onset: 232602-62-5605SeynwmnUrjzyzflvttka symptoms and ill-defined conditions (2 sources)Genuine stress incontinence; Translations: [Intermittent urinary incontinence]22-18-2617FwrylozVeqrwufbzcnqz symptoms and ill-defined conditions (1 source)Higjmesdjox12-97-1331PkmoypxbGatqprtv; including migraine (1 source)Sxpizpll72-35-3106PodjbkkSiaf disorders (2 sources)Depressive disorder; Translations: [Major depressive disorder] 10-47-8754XftktgiRojtafgrkbno breast conditions (9 sources)Unspecified lump in unspecified breast; Translations: [Nipple discharge]Onset: 867251-50-6841CkjrzdboBzzfsxkqfjrpwk (7 sources)Arthritis; Translations: [Bilateral primary osteoarthritis of knee] Onset: 485510-48-6819EmfubzzZyjau acquired deformities (1 source)Contracture, left ankle; Translations: [Contracture, left ankle]Onset: 12-59-7641YlffjlwZtgqn aftercare (1 source)Other [place] [facility] (current) drug therapy; Translations: [OTH CASHIER GREETER CURRENT DRUG THERAPY]Onset: 22-38-9987RikkqchhJkmgq and unspecified benign neoplasm (9 sources)Intraductal papilloma of right breast; Translations: [Benign neoplasm of right breast]Onset: 609882-61-4948PmsbqewoRdkkc and unspecified benign neoplasm (1 source)Benign neoplasm of right breast; Translations: [Benign neoplasm of right breast]Onset: 93-83-5012PaffukttJmkql gastrointestinal disorders (1 source)Irritable bowel syndrome without diarrhea; Translations: [IRRITABLE BOWEL SYND W/O DIARRHEA]Onset: 50-67-9918NicohoxYilcs gastrointestinal disorders (3 sources)Altered bowel function; Translations: [Other specified symptoms and signs involving the digestive system and abdomen]99-85-0411UiwgvnotRxvqp lower respiratory disease (1 source)Shortness of breath; Translations: [SHORTNESS OF BREATH]Onset: 48-81-3457KylovahdZwjtq lower respiratory disease (4 sources)Dyspnea, unspecified; Translations: [DYSPNEA UNSPECIFIED]Onset: 81-43-4490NtggzofkZbohx nervous system disorders (1 source)Other chronic pain; Translations: [Chronic pain of both knees]Onset: 01-06-9142CbrovuwUsuas non-traumatic joint disorders (4 sources)Pain in right knee; Translations: [Pain in joint, lower leg]Onset: 814379-45-1622GebsnoyrPwvnk non-traumatic joint disorders (2 sources)Pain in left knee; Translations: [PAIN IN LEFT KNEE]Onset: 10-21-2021 EpisodicOther non-traumatic joint disorders (1 source)Acute ankle pain; Translations: [Pain in left ankle and joints of left foot]60-51-7462IphqrwxlKjlqq non-traumatic joint disorders (1 source)Pain in left ankle and joints of left foot; Translations: [Pain in left ankle and joints of left foot]Onset: 38-58-7022OjvjikjnTbrrg nutritional; endocrine; and metabolic disorders (1 source)Zszwawf09-72-1338ZayeirzQozrd nutritional; endocrine; and metabolic disorders (1 source)Morbid (severe) obesity due to excess calories; Translations: [MORBID SEVERE OBES D/T EXCESS BRADEN]Onset: 55-59-4530GpmdrygOrriz nutritional; endocrine; and metabolic disorders (1 source)Body mass index (BMI) 50.0-59.9, adult; Translations: [BODY MASS INDEX BMI 50.0-59.9 ADULT]Onset: 60-31-6636CibrgfeDyxam nutritional; endocrine; and metabolic disorders (1 source)Severe obesity; Translations: [Morbid (severe) obesity due to excess calories]12-45-7815ZgpnimsLhtnp screening for suspected conditions (not mental disorders or infectious disease) (20 sources)Myocardial perfusion - finding; Translations: [Abnormal result of other cardiovascular function study]Onset: 932479-91-8246BcubdwtuYmxts upper respiratory disease (8 sources)Allergic rhinitis; Translations: [Allergic rhinitis, unspecified] Onset: 200474-53-0447PonutoeFkxcpwfn codes; unclassified (1 source)Adfuhrmr54-70-1220RapbtfioJkjfbnlq codes; unclassified (1 source)Peripheral -81-6116XdadhgmwOnobphhz codes; unclassified (1 source)Other specified postprocedural states; Translations: [OTH SPECIFIED POSTPROCEDURAL STATES]Onset: 32-21-9646XocksxijFzvqmvvksfq; intervertebral disc disorders; other back problems (9 sources)Spondylosis without myelopathy or radiculopathy, lumbar region; Translations: [Other intervertebraldisc degeneration, lumbar region]Onset: 518737-92-5552WatlvqdKboywxjagbnv (2 sources)Unknown / UNK(Unknown)Onset: 38-83-6041Wgzrkyxutouj (1 source)Other chronic pain / G89.29(ICD-10)Onset: 43-13-3211Awmqjsojrwzp (2 sources)Low back pain / M54.5(ICD-10)Onset: 03-92-7171Imbqfaxduiwq (1 source)Localized edema / R60.0(ICD-10)Onset: 07-21-6268Eviynfelyryw (1 source)Allergy status to penicillin / Z88.0(ICD-10)Onset: 10-22-2016 Unclassified (1 source)Localized swelling, mass and lump, lower limb, bilateral / R22.43(ICD-10)Onset: 74-65-2093Geksxfzhassm (1 source)Asymptomatic microscopic rwvimoehq68-57-4022Uiuqstjefhwi (3 sources)COUGH, UNSPECIFIED; Translations: [COUGH, UNSPECIFIED]Onset: 41-17-7912Ohnxgvjukoit (1 source)CHRN KIDNEY DISEASE STG 3 UNSP; Translations: [CHRN KIDNEY DISEASE STG 3 UNSP]Onset: 79-20-9848Ikbqsjamzilv (1 source)You may use alternating doses of ibuprofen (Motrin) 600 mg followed 3 hours later by 2 extra strength Tylenol's, followed 3 hours later by ibuprofen 600 mg. You may continue this repeating schedule for pain management.Urinary tract infections (1 source)Recurrent urinary tract irmzzffnh93-33-0949Yjdieuhx Past or Other Problems Problem ClassificationProblemDateDocumented DateEpisodic/ChronicBenign neoplasm of uterus (10 sources)Uterine leiomyoma; Translations: [Leiomyoma of uterus, unspecified] Onset: 611091-25-2780GjkxhilzQtkgdat and fatigue (1 source)Weakness; Translations: [Weakness]Onset: 91-74-5036JwlrjgtgJdrfa connective tissue disease (1 source)Arthrodesis status; Translations: [ARTHRODESIS STATUS]Onset: 19-04-3721SiypwizrDmhiy connective tissue disease (1 source)Achilles tendinitis, left leg; Translations: [Achilles tendinitis, left leg]Onset: 90-09-6131RdzrallyKuzzz connective tissue disease (1 source)Calcaneal spur, left foot; Translations: [Calcaneal spur, left foot] Onset: 85-69-6182CjxidbpaIoxgm ear and sense organ disorders (8 sources)Perichondritis of pinna; Translations: [Unspecified perichondritis of left external ear]Onset: 356486-87-6773NuchtbdbLapjd lower respiratory disease (7 sources)Dyspnea; Translations: [Shortness of breath]Onset: 04-29-2020 21-74-2873OctwyketBngpl nervous system disorders (1 source)Other abnormalities of gait and mobility; Translations: [Other abnormalities of gait and mobility]Onset: 72-96-1207JucgbjgwKtofm nutritional; endocrine; and metabolic disorders (7 sources)Body mass index 40+ - severely obese; Translations: [Morbid (severe) obesity due to excess calories]Onset: 01-02-2020 Resolved: 977175-21-9621YmtxozfLjzoo upper respiratory disease (7 sources)Nasal congestion; Translations: [Nasal congestion]Onset: 05-16-2023 20-76-9015XqcrecbtAmhux upper respiratory infections (1 source)Acute upper respiratory infection, unspecified; Translations: [ACUTE UP RESPIRATORY INFECTION UNS]Onset: 09-07-3424TjagwmdlBdrlexilpoh; intervertebral disc disorders; other back problems (20 sources)Muscle spasm of back; Translations: [Intervertebral disc disorders with radiculopathy, lumbar region]Onset: 75-56-3874VzbolfwcNxasaiv and strains (1 source)Strain of left Achilles tendon, initial encounter; Translations: [Strain of left Achilles tendon, initial encounter]Onset: 48-47-2556Rrotlfdd Unclassified (1 source)COUGH, UNSPECIFIED; Translations: [COUGH, UNSPECIFIED]Onset: 09-04-2022 Results Test NameValueInterpretationReference RangeFacilityCapillary blood glucose measurement by glucometer (mass/volume)Ordered By: Prisca Michel on 05-67-4841Nareyhj [Mass/Vol]106 mg/dLNoVeterans Health Administration Comment on above:Random Glucose Reference Range is dependent on time and content of last meal. Glucose of more than 200 mg/dL in a nonstressed, ambulatory subject supports the diagnosis of Diabetes Mellitus.Result Comment: Random Glucose Reference Range is dependent on time and content of last meal. Glucose of more than 200 mg/dL in a nonstressed, ambulatory subject supports the diagnosis of Diabetes Mellitus.Performed By: #### CARMELOLS #### Point of Care testing ,GLUCOSE POCT GLUCOMETERSon 94-06-9708GULBVFL8Fzv8: Cleaned MeterNOMA Regalos Y Amigos Glucose [Mass/Vol]106 mg/dLSaint Louis University HospitalComment on above:Random Glucose Reference Range is dependent on time and content of last meal. Glucose of more than 200 mg/dL in a nonstressed, ambulatory subject supports the diagnosis of Diabetes Mellitus. [facility] HealthcareGlucose Poct Glucometerson 67-34-7209Dnnohnv3Vcm9: Cleaned Meter NormalThe [facility] Physician GroupComment on above:Result Comment: PERFORMED BY: [facility] [address] [place] [address] PATHOLOGIST CREEL CLERK ANDRIA NUNN M.D.Performed By: #### JACQUELYN #### Point of Care testing ,Je 12-23-2024L Specimen: [id number] Received: 12/23/24 Status: SKYLA Mott Num: [id number] Spec Type: Surgical Subm Dr: Prisca Michel, DO Tissues: A Breast Lumpectmy/Mass - Requiring Micros Eval of Margins (RIGHT BREAST LUMP) Procedures: LIONEL/Jacob, Gross/Micro L5 Age/ Patient Sex Location Account Attending Physician Fredi Richardson 59/F [place] [id number] Prisca Michel, DO SPEC NUM: [id number] RECD: 12/23/24 STATUS: SKYLA MOTT NUM: [id number] HEIKE: 12/23/241142 [facility] DR: Prisca Michel DO ENTERED: 12/23/24 MOSES SALAGDO: JATINDER TYPE: Surgical DEPT: S ENTERED BY: [id number] RECV BY: [id number] ORDERED: HE/8, Gross/Micro L5 ORDERED: HE8, Gross/Micro L5 Pathological Diagnosis Right breast mass, radioactive-seed localized excision biopsy: - Intraductal papilloma and fibrocystic changes characterized by duct ectasia, cyst formation, adenosis and stromal fibrosis. - Prior biopsy site change with cyst formation. - No evidence of atypia or malignancy identified. Clinical Information Right breast mass, right breast intraductal papilloma Gross Description Received fresh and fixed in 10% formalin labeled with the patients name, date of , and Right breast lump with 1 radioactive seed is a right breast excisional biopsy specimen that contains 1 radioactive seed. The excisional biopsy is oriented by the surgeon as follows: Superior-Red Inferior-Blue Medial-Yellow Lateral-Harlan Anterior-Green Posterior-Black The specimen is 4.5 cm superior to inferior, 2.8 cm medial to lateral, and 6 cm anterior to posterior. The excisional biopsy is serially sectioned progressing from anterior to posterior into 8 levels. Within level 1?4 is a mayfield-white, ill-defined fibrous area, 1.2 cm superior to inferior, 0.8 cm medial to lateral, and 1.3 cm anterior to posterior. Within Specimen: [id number] Received: 12/23/24 Status: SKYLA Tod Num: [id number] Spec Type: Surgical Subm Dr: Prisca Michel, DO Tissues: A Breast Lumpectmy/Mass - Requiring Micros Eval of Margins (RIGHT BREAST LUMP) Procedures: LIONEL/Jacob, Gross/Micro L5 Patient: Fredi Rihcardson [id number] (Continued) Specimen: [id number] Received: 12/23/24 (Continued) Gross Description (Continued) Signed (signature on file) Cristian Gomes MD 12/25/24 3764 Specimen: [id number] Received: 12/23/24 Status: SKYLA Mott Num: [id number] Spec Type: Surgical Subm Dr: Prisca Michel, Tissues: A Breast Lumpectmy/Mass - Requiring Micros Eval of Margins (RIGHT BREAST LUMP) Procedures: LIONELJacob, Gross/Micro L5 Patient: Fredi Richardson [id number] (Continued) Specimen: [id number] Received: 12/23/24 (Continued) Gross Description (Continued) the fibrous area of level 3 is a coil biopsy clip and a radioactive seed that is transferred to nuclear medicine. The fibrous area is situated from the margins as follows: Superior-0.4 cm Anterior-0.3 cm Medial-0.8 cm Lateral-1 cm Inferior-2.9 cm Posterior-3 cm Fixation Time: Time specimen extracted: 1142 Time specimen placed in formalin: 1215 Cold ischemic time: 33 minutes Total fixation time: 29 hours and 30 minutes Cassettes: A1 Level 1 (to include fibrous area and closest anterior margin) A2?A3 Level 2 (to include fibrous area with closest medial and superior margin in A2 with closest inferior margin in A3) A4?A5 Level 3 (to include biopsy clip and radioactive seed site in A4 with closest lateral margin in A5) A6 Level 4, fibrous area A7 Level 5, tissue adjacent to posterior aspect of fibrous area A8 Level 8, posterior margin (8, ss, Q27-6716 A)JG Microscopic Description Microscopic examination is performed. CPT Codes 75553 Specimen: [id number] Received: 12/23/24 Status: SKYLA Mott Num: [id number] Spec Ty (more content not included)...[facility] surgical specimen RTon [id number] surgical specimen [facility] [address] [place] [address] Mammography Report Signed Patient: Fredi Richardson MR#: [id number] 309 : 1965 Acct:[id number] Age/Sex: 59 / F Adm Date: 12/23/24 Loc: [place] Room: Type: [facility] Attending Dr: Prisca Michel DO Ordering Provider: Prisca Michel DO Date of Service: 12/23/24 Procedure(s): MM surgical specimen RT Accession Number(s): ([id number]) MM/MM surgical specimen RT: CLIP Copies to: NON STAFF Prisca Michel DO CLINICAL INFORMATION: [Right] breast lumpectomy. SPECIMEN RADIOGRAPH: A single radiograph of the [right] breast specimen showed a metallic marking clip and radioiodine seed within the specimen. The images were reviewed by the attending surgeon during the procedure. Impression dictated by: Abel Mcgraw Jr., D.O. 12/23/2024 12:05 PM Dictation Location: DWS01 Dictated By: Abel Mcgraw Jr DO 12/23/24 120 Signed By: 12/23/[address] [place] [address] Physician GroupMammography reportOrdered By: Abel Mcgraw on 44-56-2089Elrpyxgidj imaging [facility] [address] [place] [address] Mammography Report Signed Patient: Fredi Richardson MR#: [id number] : 1965 Acct:[id number] Age/Sex: 59 / F Adm Date: 5 Loc: [place] Room: Type: [facility] Attending Dr: Prisca Michel DO Ordering Provider: Prisca Michel DO Date of Service: 12/23/24 Procedure(s): MM surgical specimen RT Accession Number(s): ([id number]) MM/MM surgical specimen RT: CLIP Copies to: NON STAFF Prisca Michel DO~ CLINICAL INFORMATION: [Right] breast lumpectomy. SPECIMEN RADIOGRAPH: A single radiograph of the [right] breast specimen showed a metallic marking clip and radioiodine seed within the specimen. The images were reviewed by the attending surgeon during the procedure. Impression dictated by: Abel Mcgraw Jr., D.O. 12/23/2024 12:05 PM Dictation Location: DWS01 Dictated By: Abel Mcgraw Jr DO 12/23/24 1204 Signed By: 12/23/24 [facility]5 [facility] ToledoNo Panel InformationOrdered By: Prisca Michel on 82-04-2085Jhhyqjl Glucose CommentGlu2: cleaned [facility] JacksonUS breast needle loc RTon 68-37-2705XO breast needle loc [facility] [place] [place] [address] Ultrasound Report Signed Patient: Fredi Richardson MR#: [id number] 309 : 1965 Acct:[id number] Age/Sex: 59 / F ADM Date: 12/23/24 Loc: [place] Room: Type: [facility] Attending Dr: Prisca Michel DO Ordering Provider: Prisca Michel DO Date of Service: 12/19/24 US/US breast needle loc RT: RIGHT BREAST MASS ([id number]) MM/MM diagnostic mammo RT w/CAD: POST SEED PLACEMENT Copies to: Prisca Michel DO ULTRASOUND GUIDED RADIOIODINE SEED LOCALIZATION OF THE RIGHT BREAST: CLINICAL DATA: Right breast papilloma PROCEDURE: Following sterile preparation and local anesthetics a needle containing of 0.144 ?Ci of iodine 125 was placed under the ultrasonographic guidance. Following confirmation of the tip of the needle position an Iodine seed was deployed. Adjacent to the needle entry the skin was marked 1 SEED to indicate the seed localization. The patient tolerated the procedure well and left the department in stable condition. US/US [...] GUIDED SEED LOCALIZATION OF THE RIGHT BREAST. RESULT CODE: NL Impression dictated by: Abel Mcgraw Jr., D.OMatthew 12/19/2024 1:58 PM Dictation Location: [facility] Tech: Grecia Mcneil Transcribed By: PONCE 12/19/24 1358 Dictated By: Abel Mcgraw Jr, DO 12/19/24 1351 Signed By: 12/19/24 1358[facility] Physician GroupBasic Metabolic Panelon 03-53-1866JVT/1.73 sq M.predicted MDRD (S/P/Bld) [Vol rate/Area]mL/min/{1.73_m2} NormalThe [facility] Physician GroupComment on above:Performed By: #### CBC, BMP #### [facility] [address] [place] [address] USABasic metabolic 1998 panelon 02-63-4791Nfwtw gap [Moles/Vol]8.1 mmol/L6.0 - 15.0NOMS HealthcareCalcium [Mass/Vol]9.4 mg/dL8.6 - 10.3 mg/dLNOMS HealthcareChloride [Moles/Vol]105 mmol/L98 - 107 mmol/LNOMS HealthcareCO2 [Moles/Vol]30.3 mmol/L21.0 - 31.0 mmol/LNOMS HealthcareCreatinine (U) [Mass/Vol]0.96 mg/dL0.60 - 1.20 mg/dLNOMS HealthcareESTIMATED GFRNOMS HealthcareGlucose [Mass/Vol]81 mg/dL70 - 100 mg/dLNOMA HealthcareComment on above:Random Glucose Reference Range is dependent on time and content of last meal. Glucose of more than 200 mg/dL in a nonstressed, ambulatory subject supports the diagnosis of Diabetes Mellitus. ADA recommended reference range Potassium [Moles/Vol]4.4 mmol/L3.5 - 5.1 mmol/LNOMS HealthcareSodium [Moles/Vol] 139 mmol/L136 - 145 mmol/LNOMS HealthcareUrea nitrogen [Mass/Vol]13 mg/dL7 - 25 mg/dLNOMA HealthcareNOMS HealthcareBasophils [#/volume] in Blood by Automated countOrdered By: Prisca Michel on 99-77-0552Hpxbbuahd (Bld) [#/Vol]0.0 10*3/uLNormal0.0-0.2FCincinnati VA Medical CenterComment on above:Result Comment: PERFORMED BY: [address] [address] PATHOLOGIST CREEL CLERK ANDRIA NUNN M.D.Performed By: #### CBC, BMP #### [facility] [address] [place] [address] USABasophils/100 leukocytes in Blood by Automated count Ordered By: Prisca Michel on 16-59-3882Ixdqhkcmb/100 WBC (Bld)0.1 %Normal. [facility] Hospital ToledoComment on above:Performed By: #### CBC, BMP #### [facility] [address] [place] [address] [facility] W Auto Differential panel (Bld)on 80-27-7879Lafmmtiza (Bld) [#/Vol]0 10*3/uL0.0 - 0.2 10*3/uLNOMS HealthcareBasophils/100 WBC Manual cnt (Syn fld)0.1 %.[facility] HealthcareEosinophils (Bld) [#/Vol]0 10*3/uL0.0 - 0.45 10*3/uLNOMS HealthcareEosinophils/100 WBC Manual cnt (Syn fld)0 %.[facility] HospitalErythrocyte distribution width (RBC) [Ratio]14.5 %11.9 - 15.3 %[facility] HospitalHematocrit (Bld) [Volume fraction]38.9 %34.0 - 46.4 %[facility] Hemoglobin (Bld) [Mass/Vol]12.7 g/dL11.8 - 15.4 g/dLLAYTON HOSPITAL HealthcareLymphocytes (Bld) [#/Vol]3.2 10*3/uL1.00 - 4.8 10*3/uLNOMS HealthcareLymphocytes/100 WBC Manual cnt (Syn fld)42.1 %.[facility] HospitalH (RBC) [Entitic mass]26.6 pg24.7 - 34.3 pgNOHarry S. Truman Memorial Veterans' HospitalHC (RBC) [Mass/Vol]32.5 g/dL32.0 - 35.0 g/dLSaint Louis University HospitalMCV (RBC) [Entitic vol]81.8 fL80 - 100 fLLAYTON HOSPITAL HealthcareMonocytes (Bld) [#/Vol]0.7 10*3/uL0.0 - 0.8 10*3/uLNOMS Healthcare Monocytes+Macrophages/100 WBC Manual cnt (Syn fld)9.4 %.[facility] Neutrophils (Bld) [#/Vol]3.7 10*3/uL1.8 - 7.7 10*3/uLNOMS Healthcare Neutrophils/100 WBC Manual cnt (Syn fld)48.4 %.NOMS HealthcareNRBC0.1 /100{WBC}0 - 0.5 /100{WBC}NOMS HealthcarePlatelet mean volume (Bld) [Entitic vol]8.9 fL6.3 - 10.7 fLNOMS HealthcarePlatelets (Bld) [#/Vol]321 10*3/uL150 - 450 10*3/uLNOMS HealthcareRBC LM.HPF (Urine sed) [#/Area]4.76 10*6/uL3.60 - 5.00 10*6/uLNOMS HealthcareWBC (Bld) [#/Vol]7.5 10*3/uL3.8 - 11.6 10*3/uLNOMS HealthcareWBC LM.HPF (Urine sed) [#/Area]7.5 [CFU]/mL3.8 - 11.6 [CFU]/mLNOMS HealthcareNOMS HealthcareCalcium [Mass/volume] in Serum or PlasmaOrdered By: Prisca Michel on 85-01-6223Uuiirca [Mass/Vol]9.4 mg/dLNormal8.6-10.3FCincinnati VA Medical CenterComment on above:Result Comment: PERFORMED BY: [place] [address] PATHOLOGIST CREEL CLERK ANDRIA NUNN M.D.Performed By: #### CBC, BMP #### [facility] [address] [place] [address] USACarbon dioxide, total [Moles/volume] in Serum or Plasma Ordered By: Prisca Michel on 15-81-2120OZ0 [Moles/Vol]30.3 mmol/LNormal 21.0-31.0[facility] Hospital ToledoComment on above:Performed By: #### CBC, BMP #### [facility] [address] [place] [address] USAChloride [Moles/volume] in Serum or PlasmaOrdered By: Prisca Michel on 29-76-9659Ouzxsdln [Moles/Vol]105 mmol/BXwkykf49-996 [facility] ToledoComment on above:Performed By: #### CBC, BMP #### [facility] [address] [place] [address] USAComplete Blood Count Auto Diffon 99-36-3940Lrgl Corpuscular HGB Conc32.5 g/rOWapqzv50.0-35.0The [facility] Physician GroupComment on above:Performed By: #### CBC, BMP #### [facility] [address] [place] [address] USANRBC%0.1 /100{WBC}Normal0-0.5The [facility] Physician Group Comment on above:Performed By: #### CBC, BMP #### [place] [address] USAWhite Blood Count7.5 [CFU]/mLNormal3.8-11.6The [facility] Physician GroupComment on above:Performed By: #### CBC, BMP #### [place] [address] USACreatinine [Mass/volume] in Serum or PlasmaOrdered By: Prisca Michel on 76-02-7110Lpqtwmgnui [Mass/Vol]0.96 mg/dLNormal0.60-1.20 [facility] ToledoComment on above:Performed By: #### CBC, BMP #### [place] [address] USAECG 12 lead ECGon 26-89-1150KAX 12 lead ECGSCCI [facility] [place] [address] [place] [address] Electrocardiograph Report Signed Patient: Fredi Richardson MR#: [id number] 309 : 1965 Acct:[id number] Age/Sex: 59 / F ADM Date: 12/16/24 Loc: Room: Type: [facility] Attending Dr: Prisca Michel DO Ordering Provider: Prisca Michel DO Date of Service: 12/16/24 ECG/ECG 12 [...] previous ECGs available Confirmed by Dayday Maynard ([id number]) on 12/17/2024 2:12:51 PM Referred By: Electronically Signed By: Dayday Maynard Transcribed By: MUS Signed By Dayday Maynard MD 12/17/[address] [place] [address] Physician GroupEosinophils [#/volume] in Blood by Automated countOrdered By: Prisca Michel on 43-59-3435Xpmisneqlux (Bld) [#/Vol]0.0 10*3/uLNormal0.0-0.45[facility] ToledoComment on above:Performed By: #### CBC, BMP #### [place] [address] USAEosinophils/100 leukocytes in Blood by Automated count Ordered By: Prisca Michel on 97-81-0755Yallbvjyubq/100 WBC (Bld)0.0 %Normal. [facility] ToledoComment on above:Performed By: #### CBC, BMP #### [place] [address] USAErythrocyte distribution width [Ratio] by Automated count Ordered By: Prisca Michel on 09-60-8787Dabossirqxa distribution width (RBC) [Ratio]14.5 %Vlsgge35.9-15.3FCincinnati VA Medical CenterComment on above: Performed By: #### CBC, BMP #### [place] [address] USAErythrocytes [#/volume] in Blood by Automated countOrdered By: Prisca Michel on 04-26-6474JRQ (Bld) [#/Vol]4.76 10*6/uLNormal3.60-5.00 [facility] ToledoComment on above:Performed By: #### CBC, BMP #### [place] [address] USAGlomerular filtration rate [Volume Rate/Area] in Serum, Plasma or Blood by CreatinineOrdered By: Prisca Michel on 12-16-2024 Glomerular filtration rate [Volume Rate/Area] in Serum, Plasma or Blood by Creatinine> 60.0 mL/MinRegency Hospital ToledoGlucose [Mass/volume] in Serum or PlasmaOrdered By: Prisca Michel on 72-57-1596Yifuzmx [Mass/Vol]81 mg/iKQncxml18-319IwyxkespjRegency Hospital ToledoComment on above:ADA recommended reference rangeRandom Glucose Reference Range is dependent on time and content of last meal. Glucose of more than 200 mg/dL in a nonstressed, ambulatory subject supports the diagnosisof Diabetes Mellitus.Result Comment: Random Glucose Reference Range is dependent on time and content of last meal. Glucose of more than 200 mg/dL in a nonstressed, ambulatory subject supports the diagnosis of Diabetes Mellitus. ADA recommended reference rangePerformed By: #### CBC, BMP #### [place] [id number] USAHematocrit [Volume Fraction] of Blood by Automated count Ordered By: Prisca Michel on 46-84-3622Eowzkregko (Bld) [Volume fraction] 38.9 %Fepczx02.0-46.4FCincinnati VA Medical CenterComment on above:Performed By: #### CBC, BMP #### [facility] [address] [place] [id number] USAHemoglobin [Mass/volume] in BloodOrdered By: Prisca Micehl on 58-49-5436Clchfppzzf (Bld) [Mass/Vol]12.7 g/iEBzvihv09.8-15.4 [facility] ToledoComment on above:Performed By: #### CBC, BMP #### [place] [id number] USALeukocytes [#/volume] corrected for nucleated erythrocytes in Blood by Automated counOrdered By: Prisca Michel on 98-91-3918OTE corrected for nucl RBC Auto (Bld) [#/Vol]7.5 10*3/uL3.8-11.6Firelands Regional Medical CenterLeukocytes [#/volume] in Blood by Automated countOrdered By: Prisca Michel on 97-25-0740IRM (Bld) [#/Vol]7.5 10*3/uLNormal3.8-11.6 [facility] ToledoComment on above:Performed By: #### CBC, BMP #### [facility] [address] [place] [address] USALymphocytes [#/volume] in Blood by Automated countOrdered By: Prisca Michel on 37-89-7931Lfpnszhlnjh (Bld) [#/Vol]3.2 10*3/uLNormal 1.00-4.8[facility] ToledoComment on above:Performed By: #### CBC, BMP #### [facility] [address] [place] [address] USALymphocytes/100 leukocytes in Blood by Automated count Ordered By: Prisca Michel on 67-00-8126Hjefosfkawz/100 WBC (Bld)42.1 %Normal .[facility] ToledoComment on above:Performed By: #### CBC, BMP #### [facility] [address] [place] [id number] [facility] [Entitic mass] by Automated countOrdered By: Prisca Michel on 60-90-3084RJB (RBC) [Entitic mass]26.6 bwPapvxm62.7-34.3FCincinnati VA Medical CenterComment on above:Performed By: #### CBC, BMP #### [facility] [address] [place], [place] [address] [facility] Auto (RBC) [Mass/Vol]Ordered By: Prisca Michel on 79-35-3633VYZP (RBC) [Mass/Vol]32.5 g/dL32.0-35.0[facility] ToledoMCV [Entitic volume] by Automated countOrdered By: Prisca Michel on 52-39-4564ORE (RBC) [Entitic vol]81.8 yJLecgfx56-028AdoyufemdRegency Hospital ToledoComment on above:Performed By: #### CBC, BMP #### [facility] [address] [place] [address] USAMonocytes [#/volume] in Blood by Automated countOrdered By: Prisca Michel on 06-23-6674Gfaogcxbl (Bld) [#/Vol]0.7 10*3/uLNormal 0.0-0.8[facility] ToledoComment on above:Performed By: #### CBC, BMP #### [facility] [address] [place] [id number] USAMonocytes/100 leukocytes in Blood by Automated count Ordered By: Prisca Michel on 70-15-9610Prfhsqwtt/100 WBC (Bld)9.4 %Normal. [facility] ToledoComment on above:Performed By: #### CBC, BMP #### [facility] [address] [place] [address] USANeutrophils [#/volume] in Blood by Automated countOrdered By: Prisca Michel on 22-65-5424Ctahltsflkj (Bld) [#/Vol]3.7 10*3/uLNormal 1.8-7.7FCincinnati VA Medical CenterComment on above:Performed By: #### CBC, BMP #### [facility] [address] [place] [phone] USANeutrophils/100 leukocytes in Blood by Automated count Ordered By: Prisca Michel on 45-13-2216Pvqtueuozxc/100 WBC (Bld)48.4 %Normal .[facility] ToledoComment on above:Performed By: #### CBC, BMP #### [facility] [address] [place] [phone] USANo Panel InformationOrdered By: Prisca Michel on 84-71-0194Qatgdtkk Creatinine Clearance (ChemN/[facility] Medical CenterNucleated erythrocytes [Presence] in Blood by Automated countOrdered By: Prisca Michel on 79-23-3881Tvhledxvj RBC Auto Ql (Bld)0.1 /100{WBC}0-0.5 [facility] ToledoPlatelet mean volume [Entitic volume] in Blood by Automated countOrdered By: Prisca Michel on 81-99-0309Qrwckryw mean volume (Bld) [Entitic vol]8.9 fLNormal6.3-10.7FCincinnati VA Medical Center Comment on above:Performed By: #### CBC, BMP #### [facility] [address] [place] [address] USAPlatelets [#/volume] in Blood by Automated countOrdered By: Prisca Michel on 47-40-5559Gfolauoix (Bld) [#/Vol]321 10*3/uLNormal 150-450[facility] ToledoComment on above:Performed By: #### CBC, BMP #### [place] [address] USAPotassium [Moles/volume] in Serum or PlasmaOrdered By: Prisca Michel on 37-35-7956Ptwjtqwua [Moles/Vol]4.4 mmol/LNormal3.5-5.1 [facility] ToledoComment on above:Performed By: #### CBC, BMP #### [place] [address] USASerum or plasma anion gap determinationOrdered By: Prisca Michel on 27-65-1323Olrjs gap [Moles/Vol]8.1 mmol/LNormal6.0-15.0[facility] ToledoComment on above:Performed By: #### CBC, BMP #### [facility] [address] [place] [address] USASodium [Moles/volume] in Serum or PlasmaOrdered By: Prisca Michel on 39-19-3286Kxmzgj [Moles/Vol]139 mmol/QKqqcrb940-841 [facility] ToledoComment on above:Performed By: #### CBC, BMP #### [facility] [address] [place] [address] USAUrea nitrogen [Mass/volume] in Serum or PlasmaOrdered By: Prisca Michel on 32-68-8134Gmze nitrogen [Mass/Vol]13 mg/dLNormal11-14 [facility] ToledoComment on above:Performed By: #### CBC, BMP #### [facility] [address] [place] [address] USAUS BX BREAST US GUID INITIAL RTon 38-61-4891DZ BX BREAST US GUID INITIAL RTUS BX BREAST US GUID INITIAL RT *ADDENDUM*Addendum issued for newly received pathology results, 11/14/2024 7:30 AM: For the right breast biopsy site there are pathology results of intraductal papilloma. See dedicated pathology report for further detail. This is concordant with the imaging findings. Procedure performed by Dr. Jacinto, addendum issued by Dr. Jacinto. Finalized by Martín Jacinto MD on 11/14/2024 7:[address] [place] [address] POST BX DIAG UNI RTon 27-05-2448EEIC POST BX DIAG UNI RTMAMM POST BX DIAG UNI RT ZESTDevonte RICHARDSON 1965 [id number] EXAM: MAMM POST BX DIAG UNI RT, [...] Martín Jacinto MD on 11/06/2024 3:35 PM 100NoOhio State East HospitalMM DIAGNOSTIC BILATERAL W CADon 10-21-2024 MAMM DIAGNOSTIC BILATERAL W CADMAMM DIAGNOSTIC BILATERAL W CAD ZESTA B DYLAN 1965 [id number], [id number] EXAM: MAMM DIAGNOSTIC BILATERAL W CAD, US [...] MD on 10/21/2024 3:01 PM 4 b BIOPSYNormalProMedica Healdsburg District HospitalUS BREAST RT LIMITEDon 56-78-9081RH BREAST RT LIMITEDUS BREAST RT LIMITED ZESTA Alexx RICHARDSON 1965 [id number], [id number] EXAM: MAMM DIAGNOSTIC BILATERAL W CAD, US [...] MD on 10/21/2024 3:01 PM 4 b BIOPSYNormalProTexoma Medical CenterBASIC METABOLIC PANLon 00-53-4803Kcexd gap [Moles/Vol]9 mmol/LNormal5-15Highland District HospitalComment on above: Performed By: #### CBCA, BMP #### [facility] ([id number]) [address], [address] [place], [place] [address]Diuvyst [Mass/Vol]9.9 mg/dLNormal8.5-10.5PSt. Charles HospitalComment on above:Performed By: #### CARLA, BMP #### [facility] ([id number]) [address], [address] [place], [place] [address]Weefvfly [Moles/Vol]104 mmol/THnhnfv23-175GvkKeobbzTexoma Medical CenterComment on above:Performed By: #### CARLA, BMP #### [facility] ([id number]) [address], [address] [place], [place] [address]PH8 [Moles/Vol]26 mmol/JLitzlc65-10RbrKgfjpnSt. Charles Hospital Comment on above:Performed By: #### CARLA, BMP #### [facility] ([id number]) [address], [address] [place], [place] [address]Npsqqcczqh [Mass/Vol]1.06 mg/dLHigh0.40-1.00Highland District HospitalComment on above:Result Comment: METHOD TRACEABLE TO IDMS STANDARD Performed By: #### CARLA, BMP #### [facility] ([id number]) [address], [address] [place], [place] [address]BZN/1.73 sq M.predicted among non-blacks MDRD (S/P/Bld) [Vol rate/Area]62 mL/min/{1.73_m2}Normal>59ProTexoma Medical CenterComment on above:Result Comment: Reported eGFR is based on the CKD-EPI 2020 equation that does not use a race coefficient.Performed By: #### CARLA, BMP #### [facility] ([id number]) [address], [address] [place], [place] [address]Pfqjmza [Mass/Vol]108 mg/iONwpf09-23YcmOgxgucHighland District Hospital Comment on above:Performed By: #### CARLA, BMP #### [facility] ([id number]) [address], [address] [place], [place] [address]Abkzqqnjk [Moles/Vol]3.9 mmol/LNormal3.5-5.0ProTexoma Medical CenterComment on above:Performed By: #### CBCDevonte, BMP #### [facility] ([id number]) [address], [address] [place], [place] [address]Lrejjt [Moles/Vol]139 mmol/DJjifvy327-624RurQmiigc Fremont HospitalComment on above:Performed By: #### CBCDevonte, BMP #### [facility] ([id number]) [address], [address] [place], [place] [address]Mcwm nitrogen [Mass/Vol]15 mg/dLNormal5-23ProTexoma Medical CenterComment on above:Performed By: #### CBCDevonte, BMP #### [facility] ([id number]) [address], [address] [place], [place] [address]MJF AND AUTO DIFFon 11-99-4989STXTDVCD BASOPHIL0.0 X10E9/LNormal 0.0-0.2PSt. Charles HospitalComment on above:Performed By: #### CBCDevonte, BMP #### [facility] ([id number]) [address], [address] [place], [place] [address]RYATMSVH TCVAHFLFUP08.6 X10E9/LHigh1.5-6.6Highland District HospitalComment on above:Performed By: #### CBCA, BMP #### [facility] ([id number]) [address], [address] [place], [place] [address]Eklwvdznq/100 WBC (Bld)0.3 %NormalProTexoma Medical Center Comment on above:Performed By: #### CBCA, BMP #### [facility] ([id number]) [address], [address] [place], [place] [address]Vubhcaxtfcy (Bld) [#/Vol]0.0 10*3/uLNormal0.0-0.4Highland District HospitalComment on above:Performed By: #### CBCDevonte, BMP #### [facility] ([id number]) [address], [address] [place], [place] [address]Jrfmkjomkxe/100 WBC (Bld)0.0 %NormalProTexoma Medical Center Comment on above:Performed By: #### CBCA, BMP #### [facility] ([id number]) [address] [address] [place], [place] [address]Fxklvojusjl distribution width (RBC) [Ratio]15.2 %High11.5-15.0 High[facility] District HospitalComment on above:Performed By: #### CBCA, BMP #### [facility] ([id number]) [address] [address] [place], [place] [address]Hpsutxpxqg (Bld) [Volume fraction]41.3 %Zcupxu53-70KwhVonnghTexoma Medical CenterComment on above:Performed By: #### CBCA, BMP #### [facility] ([id number]) [address] [address] [place], [place] [address]Mddvuzgoya (Bld) [Mass/Vol]13.3 g/uJZmhtqr69.7-15.5PSt. Charles HospitalComment on above:Performed By: #### CBCA, BMP #### [facility] ([id number]) [address] [address] [place], [place] [address]Eytctwsxqik (Bld) [#/Vol]2.7 10*3/uLNormal1.0-3.5PSt. Charles HospitalComment on above:Performed By: #### CBCA, BMP #### [facility] ([id number]) [address], [address] [place], [place] [address]Ndhskevpwij/100 WBC (Bld)17.7 %NormalProMedica Gainesville Hospital Comment on above:Performed By: #### CBCA, BMP #### [facility] ([id number]) [address], [address] [place], [place] [address]SCN (RBC) [Entitic mass]26.4 khTrr71-51NvxJjtzzsHighland District HospitalComment on above:Performed By: #### CBCA, BMP #### [facility] ([id number]) [address], [address] [place], [place] [address]CZQH (RBC) [Mass/Vol]32.3 g/cWRtvrya73-98PaaXuxkhwTexoma Medical CenterComment on above:Performed By: #### CBCA, BMP #### [facility] ([id number]) [address], [address] [place], [place] [address]PIM (RBC) [Entitic vol]82 mRJsbruh82-334IhnYgjwex Fremont HospitalComment on above:Performed By: #### CBCA, BMP #### [facility] ([id number]) [address], [address] [place], [place] [address]Thkmlcnyu (Bld) [#/Vol]0.9 10*3/uLNormal0-0.9High[facility] District HospitalComment on above:Performed By: #### CBCA, BMP #### [facility] ([id number]) [address], [address] [place], [place] [address]Izuvomqtk/100 WBC (Bld)6.1 %[facility] Comment on above:Performed By: #### CBCA, BMP #### [facility] ([id number]) [address], [address] [place], [place] [address]Danvxptdmun/100 WBC (Bld)75.9 %[facility] Comment on above:Performed By: #### CBCA, BMP #### [facility] ([id number]) [address], [address] [place], [place] [address]Lcousmag mean volume (Bld) [Entitic vol]9.2 fLNormal7-12 [facility] HospitalComment on above:Performed By: #### CBCA, BMP #### [facility] ([id number]) [address], [address] [place], [place] [address]Vvfenklyl (Bld) [#/Vol]372 10*3/jYVhwgvq480-524ZxmWefwxh Fremont HospitalComment on above:Performed By: #### CBCDevonte, BMP #### [facility] ([id number]) [address], [address] [place], [place] [address]SDG COUNT5.06 X10E12/LNormal3.80-5.20[facility] Comment on above:Performed By: #### CBCDevonte, BMP #### [facility] ([id number]) [address], [address] [place], [place] [address]QXG (Bld) [#/Vol]15.3 10*3/uLHigh4.0-11.0ProTexoma Medical CenterComment on above:Performed By: #### CBCA, BMP #### [facility] ([id number]) [address], [address] [place] [address] Ankle - left WO contraston . Evidence of remote partial tearing of the [...] fracture deformity of the proximal 5th metatarsal. MHPN RIS CONSOLIDATEDEXAMINATION: MRI OF THE LEFT ANKLE WITHOUT CONTRAST, [...] ankle and foot. No organized fluid collection. Scottie Garcia MD - 09/27/2023 EXAMINATION: MRI OF THE [...] fracture deformity of the proximal 5th metatarsal. [facility]ITALRad[facility] observation (narrative)[facility] Ankle - left WO contrastOrdered By: Scottie Whitmore on 08-50-6798QTGLEWISGALE [facility] Work Phone: MRI ANKLE LEFT WO CONTRASTon 86-08-9034FNR ANKLE LEFT WO CONTRASTEXAMINATION: MRI OF THE LEFT ANKLE WITHOUT CONTRAST, [...] Signed by: Scottie Whitmore MD 09/27/23 Final resultNormalMercy Saint Francis Hospital & [facility] Referral 32-29-2297Uhpqhepht [id number]#1.00TIFFNormalFisher Upmc Western MarylandCNOVon 33-37-8929UFSAQasaqf Visit (ORTHMN) FREDI RICHARDSON ([id number]) 1965 F [place] Date Time Provider Department [...] exercise. 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 We discuss our Get Ready program. She [...] also been placed. After discussion with Fredi Richardson, continued non-operative management of physical therapy, injection(s), and referral to Get Ready program was chosen. The patient currently has had six months of unsuccessful non-operative treatment as outlined in the HPI below. The patient has been ordered: Physical therapy CONSULTS: Get Ready Program for weight management assistance. ACTIVE PROBLEM LIST Fibroid Uterus SUBJECTIVE CHIEF COMPLAINT: Knee Pain HPI: Fredi Richardson is a 57 year old patient here for evaluation and management of bilateral knee pain. Fredi Richardson has had progressive problems with the knee(s) [...] incident that brought about this pain. Fredi Richardson also complains of stiffness. 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 Tricompartmental osteophytes bilaterally. No fractures. No joint effusions. 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 No other significant abnormality. IMPRESSION: MARKED DEGENERATIVE CHANGES IN THE MEDIAL COMPARTMENTS BILATERALLY Adjunct Physical Education Instructor: LENNY Transcribe Date/Time: Nov 20 2022 8:42A Dictated by : ERASMO VALENTE MD This examination was interpreted and the report reviewed and electronically signed by: ERASMO VALENTE MD on Nov 20 2022 8:43AM EST [id number] Clinic Euclid HospitalXR KNEE GENERAL 4V AP BOTH/PA BOTH/LAT/MERC BILATERALon 50-77-2448Ventqegwn ClinicBNPon 09-05-2022 Natriuretic peptide B (Bld) [Mass/Vol]29.0 pg/mLNormal<=900.0The Regional Medical CenterComment on above:Performed By: #### HSTROPN, BNP, CMP ####[facility] [address] [place], [place] [address]PfDr. Merlene PizarroC AUTO DIFFon 04-76-3820GRXY #0.1 103/ulNormal0.0-0.1The Regional Medical CenterComment on above:Performed By: #### CBC #### [facility] [address] [address] [address] Merlene CarrBasophils/100 WBC (Bld)0.5 %Normal0.2-2.0[facility] Comment on above:Performed By: #### CBC #### [facility] [address] [address] [address] Merlene Mas #0.6 103/ulNormal0.0-0.7The Regional Medical CenterComment on above: Performed By: #### CBC #### [facility] [address] [address] [address] Merlene Yatesosinophils/100 WBC (Bld)4.9 %Normal0.9-7.0[facility] Comment on above:Performed By: #### CBC #### [facility] [address] [address] [address] Merlene Yatesrythrocyte distribution width (RBC) [Ratio]14.0 %Petbmk33.0-15.0 The Regional Medical CenterComment on above:Performed By: #### CBC #### [facility] [address] [address] [address] Merlene CarrHematocrit (Bld) [Volume fraction]41.4 %Gbobzo84.0-48.0The Regional Medical CenterComment on above:Performed By: #### CBC #### [facility] [address] [address] [address] Merlene CarrHemoglobin (Bld) [Mass/Vol]13.0 g/oWEreroc90.0-16.0The Regional Medical CenterComment on above:Performed By: #### CBC #### [facility] [address] [address] [address] Merlene Russell #0.05 10e3/ulCritically high0.00-0.03[facility] Comment on above:Performed By: #### CBC #### [facility] [address] [place] [address] Dr. Merlene Russell %0.4 %Normal0.0-0.5The Regional Medical CenterComment on above: Performed By: #### CBC #### [facility] [address] [place] [address] Dr. Merlene Ahn #3.2 103/ulNormal1.2-3.8The Regional Medical CenterComment on above:Performed By: #### CBC #### [facility] [address] [place] [address] Dr. Merlene Younghocytes/100 WBC (Bld)27.2 %Xfppvu35.5-60.0The Regional Medical CenterComment on above:Performed By: #### CBC #### [facility] [address] [place] [address] Dr. Merlene GerardoUAL DIFF REQNONormalThe Regional Medical CenterComment on above: Performed By: #### CBC #### [facility] [address] [place] [address] Dr. Merlene Fregoso (RBC) [Entitic mass]26.7 vuChyhbx75.7-34.0The Regional Medical CenterComment on above:Performed By: #### CBC #### [facility] [address] [place] [address] Dr. Merlene Benavidez (RBC) [Mass/Vol]31.4 g/xZJzxpgx61.9-35.2The Regional Medical CenterComment on above:Performed By: #### CBC #### [facility] [address] [place] [address] Dr. Merlene BenavidezV (RBC) [Entitic vol]85.0 fZJvheax75.0-99.0The Regional Medical CenterComment on above:Performed By: #### CBC #### [facility] [address] [place] [address] Dr. Merlene Sahu #1.0 103/ulCritically high0.3-0.8[facility] Comment on above:Performed By: #### CBC #### [facility] [address] [place] [address] Dr. Merlene Wilkinsocytes/100 WBC (Bld)8.8 %Normal1.7-12.0[facility] Comment on above:Performed By: #### CBC #### [facility] [address] [place] [address] Dr. Merlene Lara #6.9 103/ulCritically high1.4-6.5ThGalion Community Hospital Comment on above:Performed By: #### CBC #### [facility] [address] [place] [address] Dr. Merlene Rivasutrophils/100 WBC (Bld)58.2 %Khctdc28.0-75.0The Regional Medical CenterComment on above:Performed By: #### CBC #### [facility] [address] [place] [address] Dr. Merlene Steellet mean volume (Bld) [Entitic vol]10.2 fLNormal9.5-13.5The Regional Medical CenterComment on above:Performed By: #### CBC #### [facility] [address] [place] [address] Dr. Merlene CarrPLT392 103/scEnkjtx860-732New Regional Medical CenterComment on above: Performed By: #### CBC #### [facility] [address] [place] [address] Dr. Merlene CarrRBC4.87 106/ulNormal4.20-5.40The Regional Medical CenterComment on above:Performed By: #### CBC #### [facility] [address] [address] [address] Merlene CarrWBC11.8 103/ulCritically high4.0-11.0The Regional Medical CenterComment on above:Performed By: #### CBC #### [facility] [address] [address] [address] Merlene Le SPUTUMon 65-78-6420MWZCCCG SPUTUMCulture Observations: NORMAL RESPIRATORY MARGARITO. FINAL TO FOLLOW.NormalThe Regional Medical CenterComment on above:Performed By: #### SPUTCX #### [facility] [address] [address] [address] Merlene CarrPROJovanni 14(COMP METB)on 51-45-1065Pfeopas [Mass/Vol]3.6 g/dLNormal 3.4-5.0The [facility] Medical CenterComment on above:Performed By: #### HSTROPN, BNP, CMP ####[facility] [address] [address]Dr. Merlene CarrAlbumin/Globulin [Mass ratio]0.9 {ratio}NormalThe [facility] Medical Center Comment on above:Performed By: #### HSTROPN, BNP, CMP ####[facility] [address] [address]Dr. Merlene CarrALP [Catalytic activity/Vol]74 U/OUoeuzt84-465Zli Regional Medical CenterComment on above:Performed By: #### HSTROPN, BNP, CMP ####[facility] [address] [address]Dr. Merlene ChangALT [Catalytic activity/Vol]35 U/LNormal 14-59The Regional Medical CenterComment on above:Performed By: #### HSTROPN, BNP, CMP ####[facility] [address] [address]DrMatthew CarrAnion gap [Moles/Vol]16.8 mmol/LNormalThe Regional Medical CenterComment on above:Performed By: #### HSTROPN, BNP, CMP ####[facility] [address] [address]Dr. Yilan ChangAST [Catalytic activity/Vol] 24 U/TTlmayi53-86Wvu Regional Medical CenterComment on above:Performed By: #### CARLOSTROPN, BNP, CMP ####[facility] [address] [address]Dr. Yilan ChangBilirubin [Mass/Vol]0.2 mg/dLNormal0.2-1.0The [facility] Medical CenterComment on above:Performed By: #### CARLOSTROPN, BNP, CMP ####[facility] [address] [address]Dr. Merlene Carr Calcium [Mass/Vol]9.7 mg/dLNormal8.5-10.1The [facility] Medical CenterComment on above: Performed By: #### CARLOSTRQUITAN, BNP, CMP ####[facility] [address] [place], [place] [address]Dr. Yilan ChangChloride [Moles/Vol]106 mmol/L Zdlfkf81-169Ilu Regional Medical CenterComment on above:Performed By: #### CARLOSTROPN, BNP, CMP ####[facility] [address] [address]Dr. Yilan ChangCO2 [Moles/Vol]25.3 mmol/JBuseaw01.0-32.0The [facility] Medical CenterComment on above:Performed By: #### CARLOSTROPN, BNP, CMP ####[facility] [address] [place], [place] [address]Dr. Lisalan Carr Creatinine [Mass/Vol]1.14 mg/dLCritically high0.55-1.02[facility] Comment on above:Performed By: #### CARLOSTROPN, BNP, CMP ####[facility] [address] [place], [place] [address]Dr. Yilan ChangEGFR-AF UVSPOALU42 mL/min/1.33v4Wuozyv>=60The Regional Medical CenterComment on above: Performed By: #### HSTROPN, BNP, CMP ####[facility] [address] [address]Dr. Yilan ChangEGFR-NON AF OIURXFTU00 mL/min/1.37h0Petgvxkmzw low>=60The [facility] Medical CenterComment on above:Performed By: #### HSTROPN, BNP, CMP ####[facility] [address] [address]Dr. Yilan ChangGlobulin (S) [Mass/Vol]4.2 g/dLNormalThe Regional Medical CenterComment on above:Performed By: #### HSTROPN, BNP, CMP ####[facility] [address] [place], [place] [address]Dr. Yilan ChangGlucose [Mass/Vol]95 mg/xFKxrvhf96-018Xpb Regional Medical CenterComment on above:Performed By: #### HSTROPN, BNP, CMP ####[facility] [address] [place], [place] [address]Dr. Yilan ChangPotassium [Moles/Vol]4.1 mmol/LNormal3.5-5.1The Regional Medical CenterComment on above:Performed By: #### HSTROPN, BNP, CMP ####[facility] [address] [place], [place] [address]Dr. Yilan ChangProtein [Mass/Vol]7.8 g/dLNormal6.4-8.2The Regional Medical CenterComment on above:Performed By: #### HSTROPN, BNP, CMP ####[facility] [address] [place], [place] [address]Dr. Yilan ChangSodium [Moles/Vol]144 mmol/JXdzxng626-238Vee Regional Medical CenterComment on above: Performed By: #### HSTROPN, BNP, CMP ####[facility] [address] [place], [place] [address]Dr. Yilan ChangUrea nitrogen [Mass/Vol]10.0 mg/dL Normal7.0-18.0The Regional Medical CenterComment on above:Performed By: #### HSTROPN, BNP, CMP ####[facility] [address] [address]Dr. Merlene Pak nitrogen/Creatinine [Mass ratio]8.8 mg/mgGenesis HospitalComment on above:Performed By: #### HSTROPN, BNP, CMP ####[facility] [address] [address]Dr. Merlene Byrd GRAM STAINon 75-01-6754REMLATIMCwcmgrAhkPeoples Hospital Comment on above:Performed By: #### SPUTGS #### [facility] [address] [address] [address] Merlene CarrDIPHTHEROIDSGenesis HospitalComment on above:Performed By: #### SPUTGS #### [facility] [address] [address] [address] Blunt ChangEPITHELIALS>[address] [place], [place] [address]Comment on above: Performed By: #### SPUTGS #### [facility] [address] [address] [address] Merlene CarrFUNGAL ELEMENTSGenesis HospitalComment on above: Performed By: #### SPUTGS #### [facility] [address] [address] [address] Merlene Lambert NEG [facility] County HospitalComment on above: Performed By: #### SPUTGS #### [facility] [address] [address] [address] Merlene Lambert NEG DIPPLOCOCCIGenesis HospitalComment on above: Performed By: #### SPUTGS #### [facility] [address] [address] [address] Merlene Lambert POS BACILLIGenesis HospitalComment on above: Performed By: #### SPUTGS #### [facility] [address] [address] [address] Merlene Lambert POSITIVE COCCIFEChillicothe HospitalComment on above:Performed By: #### SPUTGS #### [facility] [address] [address] [address] Merlene CarrWBC (Bld) [#/Vol]10*3/[facility], AvonComosf healthcare [facility] on above:Performed By: #### SPUTGS #### [facility] [address] [address] [address] Merlene Martinez, HIGH SENSITIVITYon 24-04-4910MVCYVU2.6 pg/mLNormal 4.0-51.3The Regional Medical CenterComment on above:Result Comment: CUT-OFF POINTS HAVE BEEN ESTABLISHED BASED ON THE FOURTH UNIVERSAL DEFINITIONS OF MYOCARDIAL INFARCTION. THE UPPER REFERENCE LIMIT (URL) OF TROPONIN, DEFINED THE 99TH PERCENTILE OF cTnI DISTRIBUTION IN A REFERENCE POPULATION, HAS BEEN CONFIRMED THE DECISION THRESHOLD FOR AK DIAGNOSIS.Performed By: #### HSTROPN, BNP, CMP ####[facility] [address] [place], [place] [address]QcDr. Merlene CarrXR CHEST 2 Von 82-57-0853YX CHEST 2 VEXAM: XR CHEST 2 V HISTORY: SHORTNESS OF [...] Electronically authenticated by: RISHABH MORENO Date: 2022-09-04 22:55Normal [facility] HospitalCoding Summary.on 66-16-9456Lpfxws Summary. CD:[id number]+PGhlYWQ+LQ5OOCHdI71orHAvfU4yG0ZJMPwPAvyoFIWRUPeFLxZutdNwM T8awRZuLKTm [file] bGxhcHNl (more content not included)...[facility] HospitalCT Maxillofacial w/o Contraston 30-55-8773WF Maxillofacial w/o ContrastExam Date/Time: 07/31/2022 10:57 EDT Reason for Exam: [...] Nomi Zaragoza MD Transcribed by: ABNER Technologist: DarcieSelect Medical Specialty Hospital - YoungstownConsent for Treatmenton 05-95-5842Drleqsf for Treatment [id number]#1.00CD:127[facility] HospitalPhysician Orderon 65-04-3180Qnsgimucp Order [id number]#1.00CD:127[facility] HospitalPhysician Orderon 06-42-1974Llchimhjq Order [id number]#1.00CD:[address] [place], [place] [address]XR CHEST 2 Von 12-97-0724BX CHEST 2 VONE-VIEW CHEST RADIOGRAPH, 04/19/2022 6:19 PM EST COMPARISON: [...] Electronically authenticated by: Jorden STALEY Date: 2022-04-19 19:[address] [place], [place] [address]Q - ALLERGEN INTERPon 47-75-2119NIVOBWFVVNDRFSEFA NOTENormal [facility] SpecialistComment on above:Order Comment: [facility] Testing performed at: [facility], [facility], [address] [place] [address], [address] [place] [address], [phone], Generator Assembler: Velasquez Caldwell MD [facility] Collection Date/Time: [facility] Results Received Date/Time: [facility] Reported Date/Time: [id number] Comment: Specific Level of Allergen IGE Class [...] analytical performance characteristics have been determined by [employer] [facility]. It has not been cleared or approved by the U.S. Food and Drug Administration. This assay has been validated pursuant to the CLIA regulations and is used for clinical purposes.Performed By: #### %SBRAST, [id number] #### [facility] Default [address] [place], [place] [address]U - RESP ALLERGY PROFILE REGION Von 07-14-6991EOPOTWZZNF ALTERNATA (M6) IGE<0.10NormalNorthern Missouri Medical SpecialistComment on above: Order Comment: [facility] Testing performed at: [employer], [employer] [facility], [address] [facility], [address] [place] [address], [address] [place] [address], Generator Assembler: Velasquez Caldwell MD [facility] Collection Date/Time: [facility] Results Received Date/Time: [facility] Reported Date/Time: [id number] By: #### %SBRAST, [id number] #### [facility] Default [address] [place], [place] [address]ARIULOIRBOS FUMIGATUS (M3) IGE<0.10NormalNorthern Missouri Medical SpecialistComment on above:Order Comment: [facility] performed at: [facility], [employer] [facility], [facility], [address] [place] [address], [address] [place] [address], Generator Assembler: Velasquez Caldwell MD [facility] Date/Time: [facility] Results Received Date/Time: [facility] Reported Date/Time: [id number] By: #### %SBRAST, [id number] #### [facility] Default [address] [place], [place] [address]HBBEHIB GRASS (G2) IGE<0.10NormalNorthern [place] Gut Snatcher Comment on above:Order Comment: [facility] Testing performed at: [employer], [facility], [address] [facility], [address] [place] [address], [address] [place] [address], Generator Assembler: Velasquez Caldwell MD [facility] Collection Date/Time: [facility] Results Received Date/Time: [facility] Reported Date/Time: [id number] By: #### %SBRAST, [id number] #### [facility] Default [address] [place], [place] [address]LLUYS (T3) IGE<0.10NormalNorthern [place] Medical SpecialistComment on above:Order Comment: [facility] Testing performed at: Q, [facility], [address] , [address] [place] [address], [phone], Generator Assembler: Velasquez Caldwell MD [facility] Date/Time: [facility] Results Received Date/Time: [facility] Reported Date/Time: [id number] By: #### %SBRAST, [id number] #### [facility] Default [address] [place], [place] [address]OII DANDER (E1) IGE<0.10NormalNoMission Bay campus Gut Snatcher Comment on above:Order Comment: [facility] Testing performed at: QPT, [facility], [address] , [address] [place] [address], [address], Generator Assembler: Velasquez Caldwell MD [facility] Date/Time: [facility] Results Received Date/Time: [facility] Reported Date/Time: [id number] By: #### %SBRAST, [id number] #### [facility] Default [address] [place], [place] [address]ZXCKUMMUEQRV HERBARUM (M2) IGE<0.10NormSc[facility] Green Hospital Medical SpecialistComment on above:Order Comment: [facility] Testing performed at: [facility], [facility], [address] , [address] [place] [address], [address], Generator Assembler: Velasquez Caldwell MD [facility] Date/Time: [facility] Results Received Date/Time: [facility] Reported Date/Time: [id number] By: #### %SBRAST, [id number] #### [facility] Default [address] [place], [place] [address]UUAEY7/1NormalNoMission Bay campus Medical SpecialistComment on above: Order Comment: [facility] Testing performed at: [facility], [facility], [address] , [address] [place] [address], [phone], Generator Assembler: Velasquez Caldwell MD [facility] Collection Date/Time: [facility] Results Received Date/Time: [facility] Reported Date/Time: [id number] By: #### %SBRAST, [id number] #### [facility] Default [address] [place], [place] [address]JUDRM9XgnbbeNknfotpc [place] Medical SpecialistComment on above: Order Comment: [facility] Testing performed at: [employer], [facility], [address] [place] [address], [address] [place] [address], [phone], Generator Assembler: Velasquez Caldwell MD [facility] Date/Time: [facility] Results Received Date/Time: [facility] Reported Date/Time: [id number] By: #### %SBRAST, [id number] #### [facility] Default [address] [place], [place] [address]EDDZXJDCL (I6) IGE<0.10No[facility] Specialist Comment on above:Order Comment: [facility] Testing performed at: [employer], [facility], [address] [place] [address], [address] [place] [address], [address] [place] [address], Generator Assembler: Velasquez Caldwell MD [facility] Date/Time: [facility] Results Received Date/Time: [facility] Reported Date/Time: [id number] By: #### %SBRAST, [id number] #### [facility] Default [address] [place], [place] [address]NTHMLA RAGWEED (SHORT) (W1) IGE<0.10NormSt. Rita's Hospital SpecialistComment on above:Order Comment: [facility] Testing performed at: [employer], [facility], [address] [place] [address], [address] [place] [address], [address] [place] [address], Generator Assembler: Velasquez Caldwell MD [facility] Date/Time: [facility] Results Received Date/Time: [facility] Reported Date/Time: [id number] By: #### %SBRAST, [id number] #### [facility] Default [address] [place], [place] [address]UPJHYECMVY (T14) IGE<0.10NoJoint [facility] District [facility] Hospital Specialist Comment on above:Order Comment: [facility] Testing performed at: QPT, [facility], [address] [facility], [address] [place] [address], [address] [place] [address], Generator Assembler: Velasquez Caldwell MD [facility] Collection Date/Time: [facility] Results Received Date/Time: [facility] Reported Date/Time: [id number] By: #### %SBRAST, [id number] #### [facility] Default [address] [place], [place] [address]OCGAQYBHMMUMOSDZ FARINAE (D2) IGE0.11 [facility] SpecialistComment on above:Order Comment: [facility] Testing performed at: [employer], [facility], [address] [facility], [address] [place] [address], [address] [place] [address], Generator Assembler: Velasquez Caldwell MD [facility] Collection Date/Time: [facility] Results Received Date/Time: [facility] Reported Date/Time: [id number] By: #### %SBRAST, [id number] #### [facility] Default [address] [place], [place] [address]BACSMAQOBGPDNITV PTERONYSSINUS (D1) IGE0.14 [facility] SpecialistComment on above:Order Comment: [facility] Testing performed at: [employer], [facility], [address] [facility], [address] [place] [address], [address] [place] [address], Generator Assembler: Velasquez Caldwell MD [facility] Collection Date/Time: [facility] Results Received Date/Time: [facility] Reported Date/Time: [id number] By: #### %SBRAST, [id number] #### [facility] Default [address] [place], [place] [address]JTY DANDER (E5) IGE<0.10NormalNorthern [place] Gut Snatcher Comment on above:Order Comment: [facility] Testing performed at: [facility], [employer] [facility], [address] [facility], [address] [place] [address], [address] [place] [address], Generator Assembler: Velasquez Caldwell MD [facility] Collection Date/Time: [facility] Results Received Date/Time: [facility] Reported Date/Time: [id number] By: #### %SBRAST, [id number] #### [facility] Default [address] [place], [place] [address]EJZ (T8) IGE<0.10NormalNorthern [place] Medical SpecialistComment on above:Order Comment: [facility] Testing performed at: [facility], [employer] [facility], [address] [place] [address], [address] [place] [address], [address] [place] [address], Generator Assembler: Velasquez Caldwell MD [facility] Collection Date/Time: [facility] Results Received Date/Time: [facility] Reported Date/Time: [id number] By: #### %SBRAST, [id number] #### [facility] Default [address] [place], [place] [address]TXEMMMG/PECAN TREE (T22) IGE<0.10NormalNorthern [place] Medical SpecialistComment on above:Order Comment: [facility] Testing performed at: [facility], [employer] [facility], [address] , [address] [place] [address], [address] [place] [address], Generator Assembler: Velasquez Caldwell MD [facility] Collection Date/Time: [facility] Results Received Date/Time: [facility] Reported Date/Time: [id number] By: #### %SBRAST, [id number] #### [facility] Default [address] [place], [place] [address]HITOQWMDBEJFNL E83 kU/LNormalNorthern [place] Gut Snatcher Comment on above:Order Comment: [facility] Testing performed at: QPT, [facility], [address] , [address] [place] [address], [address] [place] [address], Generator Assembler: Velasquez Caldwell MD [facility] Collection Date/Time: [facility] Results Received Date/Time: [facility] Reported Date/Time: [id number] By: #### %SBRAST, [id number] #### [facility] Default [address] [place], [place] [address]OSFJY ([address]) (T1) IGE<0.10NormalNorthern [place] Medical SpecialistComment on above:Order Comment: [facility] Testing performed at: [employer], [facility], [address] , [address] [place] [address], [address] [place] [address], Generator Assembler: Velasquez Caldwell MD [facility] Collection Date/Time: [facility] Results Received Date/Time: [facility] Reported Date/Time: [id number] By: #### %SBRAST, [id number] #### [facility] Default [address] [place], [place] [address]YUPYZDEE CEDAR (T6) IGE<0.10NormalNorthern [place] Medical SpecialistComment on above:Order Comment: [facility] Testing performed at: [employer], [facility], [address] , [address] [place] [address], [address] [place] [address], Generator Assembler: Velasquez Caldwell MD [facility] Collection Date/Time: [facility] Results Received Date/Time: [facility] Reported Date/Time: [id number] By: #### %SBRAST, [id number] #### [facility] Default [address] [place], [place] [address]YXDMX URINE PROTEINS (E72) IGE<0.10NormalNorthern [place] Medical SpecialistComment on above:Order Comment: [facility] Testing performed at: [employer], [facility], [address] , [address] [place] [address], [address] [place] [address], Generator Assembler: Velasquez Caldwell MD [facility] Collection Date/Time: [facility] Results Received Date/Time: [facility] Reported Date/Time: [id number] By: #### %SBRAST, [id number] #### [facility] Default [address] [place], [place] [address]PWF (T7) IGE<0.10NormalNorthern [place] Medical SpecialistComment on above:Order Comment: [facility] Testing performed at: [employer], [facility], [address] [place] [address], [address] [place] [address], [address] [place] [address], Generator Assembler: Velasquez Caldwell MD [facility] Collection Date/Time: [facility] Results Received Date/Time: [facility] Reported Date/Time: [id number] By: #### %SBRAST, [id number] #### [facility] Default [address] [place], [place] [address]FTYZUVGYLLF NOTATUM (M1) IGE<0.10NormalNorthern [place] Medical SpecialistComment on above:Order Comment: [facility] Testing performed at: [employer], [facility], [address] [place] [address], [address] [place] [address], [address] [place] [address], Generator Assembler: Velasquez Caldwell MD [facility] Collection Date/Time: [facility] Results Received Date/Time: [facility] Reported Date/Time: [id number] By: #### %SBRAST, [id number] #### [facility] Default [address] [place], [place] [address]TFTIO PIGWEED (W14) IGE<0.10NormalNorthern [place] Medical SpecialistComment on above:Order Comment: [facility] Testing performed at: [employer], [facility], [address] [place] [address], [address] [place] [address], [address] [place] [address], Generator Assembler: Velasquez Caldwell MD [facility] Collection Date/Time: [facility] Results Received Date/Time: [id number] [facility] Reported Date/Time: [id number] By: #### %SBRAST, [id number] #### [facility] Default [address] [place], [place] [address]JLMGEMQ THISTLE (W11) IGE<0.10[facility] Medical CenterComment on above:Order Comment: [facility] Testing performed at: QPT, [facility], [address] [facility], [address] [place] [address], [address] [place] [address], Generator Assembler: Velasquez Caldwell MD [facility] Collection Date/Time: [facility] Results Received Date/Time: [facility] Reported Date/Time: [id number] By: #### %SBRAST, [id number] #### [facility] Default [address] [place], [place] [address]HLYBG SORREL (W18) IGE0.13 [facility] DaytonComment on above:Order Comment: [facility] Testing performed at: QPT, [facility], [address] , [address] [place] [address], [address] [place] [address], Generator Assembler: Velasquez Caldwell MD [facility] Collection Date/Time: [facility] Results Received Date/Time: [facility] Reported Date/Time: [id number] By: #### %SBRAST, [id number] #### [facility] Default [address] [place], [place] [address]EKVHYUSN (T11) IGE0.10 [facility] Comment on above:Order Comment: [facility] Testing performed at: QPT, [facility], [address] [facility], [address] [place] [address], [address] [place] [address], Generator Assembler: Velasquez Caldwell MD [facility] Collection Date/Time: [facility] Results Received Date/Time: [facility] Reported Date/Time: [id number] By: #### %SBRAST, [id number] #### [facility] Default [address] [place], [place] [address]QCDQDKS GRASS (G6) IGE<0.10NormalNorthern [place] Gut Snatcher Comment on above:Order Comment: [facility] Testing performed at: [facility], [employer] [facility], [address] [facility], [address] [place] [address], [address] [place] [address], Generator Assembler: Velasquez Caldwell MD [facility] Collection Date/Time: [facility] Results Received Date/Time: [facility] Reported Date/Time: [id number] By: #### %SBRAST, [id number] #### [facility] Default [address] [place], [place] [address]ZYXKIM TREE (T10) IGE<0.10NormalNorthern [place] Gut Snatcher Comment on above:Order Comment: [facility] Testing performed at: [facility], [employer] [facility], [address] [place] [address], [address] [place] [address], [address] [place] [address], Generator Assembler: Velasquez Caldwell MD [facility] Collection Date/Time: [facility] Results Received Date/Time: [facility] Reported Date/Time: [id number] By: #### %SBRAST, [id number] #### [facility] Default [address] [place], [place] [address]JUPCO NORBERTO (T15) IGE<0.10NormalNorthern [place] Gut Snatcher Comment on above:Order Comment: [facility] Testing performed at: [employer], [facility], [address] , [address] [place] [address], [address] [place] [address], Generator Assembler: Velasquez Caldwell MD [facility] Collection Date/Time: [facility] Results Received Date/Time: [facility] Reported Date/Time: [id number] By: #### %SBRAST, [id number] #### [facility] Default [address] [place], [place] [address]RGSZC MULBERRY (T70) IGE<0.10NormalNorthern [place] Medical SpecialistComment on above:Order Comment: [facility] Testing performed at: QPT, [facility], [address] [facility], [address] [facility], [place], [address], Generator Assembler: Velasquez Caldwell MD [facility] Collection Date/Time: [facility] Results Received Date/Time: [facility] Reported Date/Time: [id number] By: #### %SBRAST, [id number] #### [facility] Default [address] [place], [place] [address]TZLRMA SPINE 2 OR 3 Son [id number] SPINE 2 OR 3 [facility] HospitalDepartment of Nwngdxghc[address] [place] [address] Patien t Name: FREDI RICHARDSON : 1965Sex: FAge: Race: BlackMRN: [id number]. Location: 84Patient Status: Date: 03/07/2017 8:30:00 AMCompleted Date: 03/07/2017 08:35 AMRequesting Provider: HOMERO ACEVEDO Attending Provider: Report Copy To: Signs & Symptoms: M51.36 Other intervertebral disc degeneration, lumbar region V60Mddxech: AthenaComments: , , Views (X-RAY, LUMBAR SPINE): AP, Lateral, L5-S1 Spot , Weight Bearing?: Y , , , Ordering Provider - STEVE CASTELLON , Exam: LUMBAR SPINE 2 OR 3 VWSAccession #: [id number] LUMBAR SPINE 2 OR 3 VWS 03/07/2017 8:35 AM EST SIGNS AND SYMPTOMS: M51.36 Other intervertebral disc degeneration, lumbar region I10 TECHNOLOGIST COMMENTS:Patient states complaint of low back pain Last [...] pain Last surgery x 04/2016 check of L- spine QUESTION FOR RADIOLOGIST: , , Views (X-RAY, [...] L5-S1.Facet joints: There is mild facet joint hypertrophyL4-L5 and L5- S1.Alignment: There is levoconvex curvature of the lumbar spine .Posterior fusion hardware of T10-T11 vertebral bodies is partially visualized and appears unchanged. IMPRESSION: Degenerative changes with facet joint hypertrophy and anterior bridging osteophytes as described above. There is moderate disc height loss at L5-S1 which remain stable. Posterior fusion hardware of T10-T11 bishop tebral bodies is partially visualized and appears unchanged. Approved by:Krystina Ty on 03/07/20179:25 AM EST. I, Alex Galarza, have reviewed the images and report and concur with these findings. Electronically signed by:Alex Galarza. Transcribed by: [id number], User Resident: KRYSTINA HASANElectronically Signed by: ALEX GALARZA @ 03/07/2017 02:18 PMI personally read this/these film(s) with this residentUniversity Hospitals Cleveland Medical CenterComment on above: Order Comment: , , Views (X-RAY, LUMBAR SPINE): AP, Lateral, L5-S1 Spot , Weight Bearing?: Y , , , Ordering Provider - HOMERO ACEVEDO MD , LUMBAR SPINE 2 OR 3 [facility] [id number] SPINE 2 OR 3 SUniWexner Medical CenterDepartment of Zupieffhz[address] [place] [address] Patien t Name: FREDI RICHARDSON : 1965Sex: FAge: Race: BlackMRN: [id number]. Location: Patient Status: Date: 10/25/2016 8:45:00 AMCompleted Date: 10/25/2016 08:50 AMRequestingProvider: HOMERO ACEVEDO Attending Provider: Report Copy To: Signs & Symptoms: M51.36 Other i ntervertebral disc degeneration, lumbar region B55Ganrruw: AthenaComments: , , Views (X-RAY, LUMBARSPINE): AP, Lateral, L5-S1 Spot , Weight Bearing?: Y , , , Ordering Provider - HOMERO SALMON MD , Exam: LUMBAR SPINE 2 OR 3 VWSAccession #: [id number] LUMBAR SPINE 2 OR 3 VWS 10/25/2016 8:50 AM EDT SIGNS AND SYMPTOMS: M51.36 Other intervertebral disc degeneration, lumbar region I10 TECHNOLOGIST COMMENTS: Patient c/o low back pain with pain down both legs. QUESTION FOR RADIOLOGIST: , , Views (X-RAY, LUMBARSPINE): AP, Lateral, L5-S1 Spot , Weight Bearing?: Y , , , Ordering Provider - HOMERO SALMON MD , PROTOCOL: AP, Lateral and L5-S1 spot film was obtained. COMPARISON: July 26, 2016 FINDINGS: Bones: There are 5 nonrib-bearing lumbar type vertebral bodies visualized with normalbone density. Minimal anterior bony spurring at L3 and L4. Disk spaces: Relatively preserved disc sp aces apart from minimal narrowing at L3-4 Facet joints: Facet joint sclerosis and narrowing at L4-S1 level.Alignment: Normal alignment. Lower thoracic spine hardware fusion is again visualized. Nonobstructive bowel gas pattern is visualized. IMPRESSION: Lower thoracic spine hardware fusion, unchanged. Otherwise, minimal disc space narrowing at L3-4 and lower lumbar spine facet joint disease. Electronically signed by:Moriah Krueger. Transcribed by: [id number], User Resident: ElectronicallySigned by: MORIAH KRUEGER @ 10/25/2016 03:33 [facility]ENTERormalCleveland Clinic Euclid HospitalComment on above:Order Comment: , , Views (X-RAY, LUMBAR SPINE): AP, Lateral, L5-S1 Spot , Weight Bearing?: Y , , , Ordering Provider - HOMERO SALMON MD , BNPon [id number] pg/mLNormal0 [address] StreetComment on above:Result Comment: . <100 pg/mL - Heart failure qiooolsz122-135 pg/mL - Intermediate probability ofacute heart. failure exacerbation. Correlate with clinical. context and patient history. >=300 pg/mL - Heart Failure likely. Correlate with clinical. context and patient history.BNP testing is performed using different testingmethodology at [facility] than at [facility].Direct result comparisons shouldonly be made within the same method.Performed By: #### BNP2 ####[facility] [facility], [phone] AND DIFFERENTIALon 10-22-2016% AUTOMATED IMMATURE GRAN0.2 %Normal0.0 - 0.9[facility] HospitalComment on above:Result Comment: Percent differential counts (%) should be interpreted in the context of the absolute cell counts (cells/L).Performed By: #### CBCDF ####[facility] [facility], [phone]% WSDELTVQCS68.7 % Khlzmq06.0 - 80.0[facility] HospitalComment on above:Performed By: #### CBCDF ####[facility] [facility], [phone]/100 WBC Auto (Bld)0.05 x10E9/LNormal0.00 - 0.10[facility] HospitalComment on above:Performed By: #### CBCDF ####[facility] [facility], [phone]/100 WBC Auto (Bld)0.5 %Normal0.0 - 2.0[facility] HospitalComment on above:Performed By: #### CBCDF ####[facility] [facility], [phone] 10*3/uLNormal0.00 - 0.70[facility] Comment on above:Performed By: #### CBCDF ####[facility] [facility], [phone]/100 leukocytes2.1 %Normal 0.0 - 6.0[facility] HospitalComment on above:Performed By: #### CBCDF ####[facility] [facility], [phone] distribution width Auto Ratio (RBC)17.0 %High11.5 - 14.5[facility] Comment on above:Performed By: #### CBCDF ####[facility] [facility], [phone] (RBC)5.38 x10E12/LHigh 4.00 - 5.20[facility] HospitalComment on above:Performed By: #### CBCDF ####[facility] [facility], [phone] Hematocrit (HCT)39.8 %Bffveg18.0 - 46.0[facility] HospitalComment on above: Performed By: #### CBCDF ####[facility] [place] [address],[facility], [phone] mass conc (Bld)12.7 g/pQHnmnql88.0 - 16.0[facility] HospitalComment on above:Performed By: #### CBCDF ####[facility] [facility], [phone] 10*3/uLNormal1.20 - 4.80[facility] HospitalComment on above:Performed By: #### CBCDF ####[facility] [facility], [phone]/100 ithtzyvqnv42.4 %Emjuxj35.0 - 44.0[facility] HospitalComment on above:Performed By: #### CBCDF ####[facility] [facility], [phone] mass conc (RBC)31.9 g/dLLow32.0 - 36.0[facility] HospitalComment on above:Performed By: #### CBCDF ####[facility] [facility], [phone] fLLow80 - 100Stoughton HospitalComment on above: Performed By: #### CBCDF ####[facility] [facility], [phone] 10*3/uLNormal0.10 - 1.00Stoughton HospitalComment on above:Performed By: #### CBCDF ####[facility] [facility], [phone]/100 leukocytes8.1 %Normal 2.0 - 10.0Stoughton HospitalComment on above:Performed By: #### CBCDF ####[facility] [facility], [phone] Neutrophils6.07 10*3/uLNormal1.20 - 7.70Stoughton HospitalComment on above: Performed By: #### CBCDF ####[facility] [facility], [phone] 10*3/dUZvna402 - 450[facility] Comment on above:Performed By: #### CBCDF ####[facility] [facility], [phone] (Leukocytes)10.9 10*3/uLNormal4.4 - 11.3Stoughton HospitalComment on above:Performed By: #### CBCDF ####[facility] [facility], [phone] COMPREHENSIVE PANELon 73-53-7932Mjjpday aminotransferase (ALT)27 U/LNormal7 - 45 Stoughton HospitalComment on above:Result Comment: Patients treated with Sulfasalazine may generate falsely decreased results for ALT.Performed By: #### CMP ####[facility] [facility], [phone] Albumin4.0 g/dLNormal3.4 - 5.0Stoughton HospitalComment on above:Performed By: #### CMP ####[facility] [facility], [phone] phosphatase (ALP)74 U/RMzhmyr24 - 110Stoughton HospitalComment on above:Performed By: #### CMP ####[facility] [facility], [phone] gap17 mmol/FNfkzyq93 - 20Stoughton HospitalComment on above:Performed By: #### CMP ####[facility] [facility], [phone] aminotransferase (AST)30 U/LNormal9 - 39Stoughton HospitalComment on above: Result Comment: MILD HEMOLYSIS DETECTED. The result may be falsely elevated due tohemolysis or other interferents. Clinical correlation is recommended.Repeat testing may be considered.Performed By: #### CMP ####[facility] [facility], [phone] (HCO3)22 mmol/TDrtlln59 - 32Stoughton HospitalComment on above:Performed By: #### CMP ####[facility] [facility], [phone] (total) 0.5 mg/dLNormal0.0 - 1.2Stoughton HospitalComment on above:Performed By: #### CMP ####[facility] [facility], [phone] mg/dLNormal8.6 - 10.6Stoughton HospitalComment on above:Performed By: #### CMP ####[facility] [facility], [phone] mmol/CKezilz19 - 107Stoughton HospitalComment on above:Performed By: #### CMP ####[facility] [facility], [phone] mg/dLHigh 0.50 - 1.05Stoughton HospitalComment on above:Performed By: #### CMP ####[facility] [facility], [phone] (non-black)51 mL/min/{1.73_m2}Invalid Interpretation Code>60Stoughton HospitalComment on above:Performed By: #### CMP ####[facility] [facility], [phone] (non-black)62 mL/min/{1.73_m2} Normal>60Stoughton HospitalComment on above:Result Comment: CALCULATIONS OF ESTIMATED GFR ARE PERFORMED USING THE MDRD STUDY EQUATION FOR THE IDMS- TRACEABLE CREATININE METHODS. CLIN CHEM 2007;53:766-72Performed By: #### CMP ####[facility] [facility], [phone] Glucose mass vkow494 mg/aFEmcr43 - 99Stoughton HospitalComment on above: Performed By: #### CMP ####[facility] [facility], [phone] molar conc4.2 mmol/LNormal3.5 - 5.3Stoughton HospitalComment on above:Result Comment: MILD HEMOLYSIS DETECTED. The result may be falsely elevated due tohemolysis or other interferents. Clinical correlation is recommended.Repeat testing may be considered.Performed By: #### CMP ####[facility] [facility], [phone] g/dLNormal6.4 - 8.2Stoughton HospitalComment on above:Performed By: #### CMP ####[facility] [facility] [place], [phone] Hogacb638 mmol/PEcfgsg782 - 145Stoughton HospitalComment on above:Performed By: #### CMP ####[facility] ,[facility], [phone] oxznjfco79 mg/dLNormal6 - 23Stoughton HospitalComment on above:Performed By: #### CMP ####[facility] [facility], [phone] Ion 80-94-4172Hootmwfu I.cardiac mass concng/mLNormal0.00 - 0.03Stoughton HospitalComment on above:Result Comment: LESS THAN 0.04 NG/ML: NEGATIVEREPEAT TESTING IN FOUR TO SIX HOURSIF CLINICALLY INDICATED.0.04 - 0.5 NG/ML: CONSISTENT WITH POSSIBLECARDIAC DAMAGE AND POSSIBLE INCREASEDCLINICAL RISK.SERIAL MEASUREMENTS MAY HELP ASSESS EXTENT OFMYOCARDIAL DAMAGE.>0.5 NG/ML: CONSISTENT WITH CARDIACDAMAGE,INCREASED CLINICAL RISK AND MYOCARDIALINFARCTION. SERIAL MEASUREMENTS MAY HELPASSESS EXTENT OF MYOCARDIAL DAMAGE..Note: Troponin I testing is performed using differenttesting methodology at [facility] than at [facility]. Direct result comparisons should onlybe made within the same method.Performed By: #### TROP2 ####[facility] [facility], [phone] 2 VIEW PA AND LATon 80-84-7211DWLEB 2 VIEW PA AND LATMRN: [id number] Name: FREDI RICHARDSON STUDY:CHEST 2 VIEW PA AND LAT; 10/21/2016 9:23 pm INDICATION:Signs/Symptoms: leg swelling. COMPARISON:None. ORDERING CLINICIAN:JUANI REILLY FINDINGS:CARDIOMEDIASTINAL SILHOUETTE:Cardiomediastinal silhouette is normal in size andconfiguration. LUNGS:There is no evidence of pulmonary edema or focal consolidation tosuggest pneumonia. No pneumothorax or pleural effusion is seenbilaterally. ABDOMEN:No remarkable upper abdominal findings. BONES:No acute osseous changes. Status post T10-T11 posterior fusion. IMPRESSION:1. No evidence of acute cardiopulmonary process.Electronically signed by: Juancho ROTHMANSelect Specialty Hospital - DurhamLaselect medical specialty hospital - canton Joint Arthro/Inj: bilateral knee jointsGood Samaritan Hospital Vital Signs Date TimeVital SignValuePerforming VocpgbxprPvmnhrhf92-14-2846 13:28-0400 Diastolic blood yrdspztk02 mm[Hg]Prisca Itzkowitz DO Work Phone: 1(151)[address] [place], [place] 0677609-02-2025 13:28-0400 Heart rate84 /minFredric Itzkowitz DO Work Phone: 1(570)[address] [place], [place] 0677609-02-2025 13:28-0400 Respiratory rate16 /minFredric Itzkowitz DO Work Phone: 1(339)[address] [place], [place] 0677609-02-2025 13:28-0400 SaO2% (BldA) [Mass fraction]96 %Prisca Itzkowitz DO Work Phone: 1(047)[address] [place], [place] 0677609-02-2025 13:28-0400 Systolic blood nhnffuom791 mm[Hg]Prisca Itzkowitz DO Work Phone: 1(576)[address] [place], [place] 0677609-02-2025 12:50-0400 Body aenxdkjpxhk53 [degF]Prisca Itzkowitz DO Work Phone: 5(252)[address] [place], [place] 0677609-02-2025 09:39-0400 Body .1 cmFredric Itzkowitz DO Work Phone: 1(476)[address] [place], [place] 0677609-02-2025 09:39-0400 Body kgFredric Itzkowitz DO Work Phone: 0(359)[address] [place], [place] 0677608-20-2025 14:03-0400 Body cmpcat332.1 cmFredric Itzkowitz DO Work Phone: [phone] HospitalAxkrxwctcj45-92-4976 14:03-0400Body mass index (BMI) [Ratio]48.92 kg/v5Clcuogf Itzkowitz DO Work Phone: [facility] HospitalRtjbsmxnid70-86-6551 14:03-0400Body ipixmn907.36 kgFredric Itzkowitz DO Work Phone: [facility] HospitalQjmmdkyhtk17-88-8158 14:03-0400Diastolic blood bbcwwfuv94 mm[Hg]Prisca Itzkowitz DO Work Phone: [facility] HospitalKcgezmzwqi77-46-0543 14:03-0400Systolic blood iwfxcmuj873 mm[Hg]Prisca Itzkowitz DO Work Phone: [facility] HospitalNhbesjvxko20-62-5927 10:05-0500Body .1 cmChristine Bowman MD Work Phone: [facility] HospitalKtyztpzyir47-07-6574 10:05-0500Body mass index (BMI) [Ratio]56.41 kg/m5UlawtuChristine Bowman MD Work Phone: [facility] HospitalMxhtuxnfiy35-86-7611 10:05-0500Body pagtbf922.77 kgChristine Bowman MD Work Phone: [facility] HospitalKsmbkpczlx11-38-6505 10:05-0500Diastolic blood fwqqeixj05 mm[Hg]Christine Bowman MD Work Phone: [facility] HospitalPhmsezmbam84-39-9604 10:05-0500Systolic blood mm[Hg]Christine Bowman MD Work Phone: [facility] HospitalEjztglgdra07-23-2775 09:32-0400Body bzclxy345.6 Kary Yañez PA-C Work Phone: [place] Vmcgdy88-21-2815 09:32-0400Body rhiiue506.05 kgCajax Yañez PA-C Work Phone: [place] [facility] Encounters Encounter DateEncounter TypeCare ProviderFacilityStart: 01-01-2025 End: 02-54-4241eubcgwpkhrWXIIMWT H ITZKOWITZNot AvailableStart: 01-01-2025 End: 59-00-2242Flftwr follow up visit related to original pxFredric H Itzkowitz DO Work Phone: [facility] Surgical AssociatesComment on above:Intraductal papilloma of breast, right (Primary Dx)Start: 12-23-2024 End: 02-64-1231Gsqkdfnn Result EncounterFredric H Itzkowitz DO Work Phone: [facility] External Department UnsolicitedStart: 12-23-2024 End: 75-23-0846Dqyhdduv Result EncounterFredric H Itzkowitz DO Work Phone: [facility] External Department UnsolicitedStart: 12-23-2024 End: 47-79-1658Jxqhenjyz to same day surgery centerFredric Itzkowitz DO-[facility] CampusStart: 12-23-2024 End: 16-12-6497ngjjweqfpzCBJCleveland Clinic [facility] Ctr Work Phone: Start: 12-16-2024 End: 90-11-5870Xeqrgbt encounter procedureFredric Itzkowitz GC-Uqw-Cphlnuif Testing Work Phone: Start: 12-16-2024 End: 87-33-8848miofvfjzjqHMZSouthwest General Health Center [facility] Work Phone: Start: 45-47-4380Xvmpjlgbb for preprocedural laboratory examinationFredric OscarBayfront Health St. Petersburg Physician GroupStart: 12-16-2024 End: 08-68-5578Dggsvedg Result EncounterFredric H Itzkowitz DO Work Phone: [facility] External Department UnsolicitedStart: 12-16-2024 End: 88-62-8550Ukgqeadn Result EncounterFredric H Itzkowitz DO Work Phone: [facility] External Department UnsolicitedStart: 12-10-2024 End: 44-36-1162Oacpou outpatient new 45 minutesFredric H Itzkowitz DO Work Phone: [facility] Surgical AssociatesComment on above:Nipple discharge (Primary Dx); Intraductal papilloma of breast, rightStart: 12-10-2024 End: 24-75-5409mygexlmmldWOHYQVM Lo MICHELVi AvailableStart: 11-24-2024 End: 05-59-0039bzznhhwhvtMbtxeng Vytautas Giedraitis MDFacility:PM [place] Start: 11-06-2024 End: 89-54-2025sgkpcffognMCKGWY C [facility] HospitalStart: 10-21-2024 End: 54-62-7937dqrkawcmqdRFGKZV C [facility] HospitalStart: 70-73-0804kaajvzefauSRZOHQ [facility] HospitalStart: 08-25-2024 End: 69-28-2799zhsmfdcynsIoggzjt Vytautas Giedraitis MDFacility:PM [place] Start: 08-11-2024 End: 89-77-3516eiljxbemifEdimapi Vytautas Giedraitis MDFacility:PM [place] Start: 60-96-8848mvrqwimbzuIFYZQS [facility] HospitalStart: 21-97-9253mzgybpqxgiXZFQBNUNC Health Rex HospitalStart: 04-28-2024 Encounter for preprocedural cardiovascular examinationChristus Bossier Emergency Hospital HospitalStart: 31-60-3973Jmxemzdgw for preprocedural laboratory examinationChristus Bossier Emergency Hospital HospitalStart: 04-28-2024 End: 18-09-4166qeeqleuxloMCYOV L MULLINSProMedPike County Memorial Hospital HospitalStart: 09-27-2023 End: 32-85-2385gjjvgxptftOCLKRadha Broussard Defuniak Springs HospitalStart: 09-27-2023 End: 19-38-6423Jazuizlqrx hospital visit by [facility] MRIComment on above:Acute left ankle painStart: 05-30-2023 End: 67-71-8121Kyikzl outpatient visit 15 minutesChristine Bowman MD Work Phone: [facility] CI ENTComment on above:Perichondritis of auricle, left (Primary Dx)Start: 77-58-1881gfvdbmylacDmudsx TimmisFacility:HARISH Rowland Start: 11-20-2022 End: 27-88-7373xeoychzqhtRSFDO LYNN MULLINSFacility:[facility] Start: 11-20-2022 End: 08-71-6730Moxrkzw encounter procedureCajax Yañez PA-C Work Phone: OrthopaedicsComment on above:Bilateral primary osteoarthritis of knee (Primary Dx); Class 3 severe obesity due to excess calories without serious comorbidity with body mass index (BMI) of 50.0 to 59.9 in adult (HCC)Start: 11-20-2022 End: 67-18-3668Hvkofpnbai hospital visit by physicianXr Main N81WqchalgstQvorwme on above:Chronic pain of both knees [M25.561, M25.562, G89.29]Start: 11-03-2022 Orders OnlyGissel Yañez PA-C Work Phone: OrthopaedicsComment on above:Chronic pain of both knees (Primary Dx)Start: 09-04-2022 End: 26-07-1504rsklvjiqxiGZYOCT PARTNERS COMMUNITYFacility:J1Pgjxo: 07-31-2022 End: 16-05-9984ocphfkcvudNsvbiv H TimmisFacility:FTMCStart: 07-31-2022 End: 36-70-0930Geuzmgc encounter procedureHilary H Timmis [facility] Start: 07-06-2022 End: 09-65-4730lilcaviuryPWGARB PARTNERS COMMUNITYFacility:B5Moiyq: 06-08-2022 End: 47-96-3882ksfvkvrqblJW VIMAL S KUMAR .Facility:U2Ugusb: 05-18-2022 ambulatoryDR CADENCE LUKE .Facility:N1Zgshh: 04-19-2022 End: 67-40-7574iwpqeangcxICZLHO PARTNERS COMMUNITYFacility:Y6Ooheq: 02-15-2022 End: 32-34-8708mquqihxekdYI CADENCE LUKE .Facility:R4Xknnu: 01-19-2022 End: 54-30-8389swldrifkqvPSDVLA PARTNERS COMMUNITYFacility:X9Kjiaq: 10-18-2021 End: 22-75-7302jcxylsqalsOJ CADENCE LUKE .Facility:E6Eysld: 10-06-2021 End: 44-09-2317ppteohjxvrBZPWVY PARTNERS COMMUNITYFacility:W7Nqaaw: 03-07-2017 End: 37-28-4118WdijrtokfrUCIYOKN K ELGAFYFacility:UTMCStart: 10-25-2016 End: 46-89-5612HlpwpnthhhKCLDAZM K ELGAFYFacility:UTMCStart: 10-21-2016 End: 33-98-6304JwaizuohjpRaof Paul ImmFacility:AMCStart: 99-33-9645Hddjqtxon dept visit high severity&threat [facility] Procedures DateProcedureProcedure DetailPerforming ClinicianStart: 10-45-5983Qocbezjvvpw of right breast specimenFredric Itzkowitz DO Work Phone: Start: 08-76-6257Jsnjxmrmcc of right breastFredric Itzkowitz DO Work Phone: Start: 83-42-6076AQCMMRV POCT GLUCOMETERSFredric H Itzkowitz DO Work Phone: Start: 45-16-3623AemgkimhnrkXcmlmsf Itzkowitz DO Work Phone: Start: 50-13-0022Pfbwwnwubucqngt guided needle localization of lesion of right breastFredric Itzkowitz DO Work Phone: Start: 80-00-5630Kcwpd metabolic panel calcium total Prisca H Itzkowitz DO Work Phone: Start: 49-38-5937Uwzifcjh blood count with white cell differential, automatedFredric H Itzkowitz DO Work Phone: Start: 64-96-3638MsguqnznozaHetcctw Itzkowitz DO Work Phone: Start: 17-23-8666Dnv any jt lower extrem w/o contrast matrlKara J Danna PEOPLESOFT FUNCTIONAL ANALYST - HEALTH EDUCATION ASSISTANT Work Phone: Start: 97-21-0051Pbjwxjodkjusjm aspir&/inj major jt/bursa w/o usCasandra McFrederick PA-C Work Phone: Start: 43-30-7003Lmjjxxdise exam knee complete 4/more viewsCasandra McFrederick PA-C Work Phone: Start: 68-29-3770DtwoifrggzrMjlaaxvy McFrederick PA-C Work Phone: Start: 15-95-5924TinxjeswayVybdzr Timmis abdominal hysterectomyHilary Timmis colonoscopyHilary Timmis Decompression of median nerveHilary Timmis Destructive procedureHilary Timmis History of hernia repairHilary Timmis History of operative procedure on lumbar spinal structureHilary Timmis Plan of Treatment DateCare ActivityDetailAuthorStart: 41-51-7304KQdE/Tdap/Td vaccine (2 - Td or Tdap)DTaP/Tdap/Td vaccine (2 - Td or Tdap)[facility]ITALStart: 61-24-4667Dcxiykmis for malignant neoplasm of breastMammogramNOMS Healthcare Start: 11-91-4590Apqpnocdz for malignant neoplasm of breastMammogramNOMS HealthcareStart: 01-01-2025 End: 03-91-3766Frmncal encounter huplouhgu44/11/2025 11:30 AM EDT Office Visit [facility] [address] [id number] Prisca Michel, DO [address] [facility] [address] [place] [address] [facility] Surgical AssociatesStart: 12-23-2024 [facility] Ohiotart: 54-88-9300XcxkmktllKing's Daughters Medical Center Ohiotart: 70-35-1166Jtzpctqru vaccinationInfluenza Vaccine (#1)[facility] HealthcareStart: 97-90-7215Uyqokrmgcir of right breastMM diagnostic mammo RT w/CADKing's Daughters Medical Center Ohiotart: 11-37-4808PC Breast - right DiagnosticKing's Daughters Medical Center Ohiotart: 13-80-7835Ijxjpggjj for malignant neoplasm of breastBreast cancer screenBON MEMORIAL HEALTH SYSTEM SEL[facility] HOSPITALStart: 55-75-3544KrjmisctkqnXKNJPMQUNBekmlkxjs ClinicStart: 78-35-0512Ojrxzjvnj for malignant neoplasm of breastMammogramLAYTON HOSPITAL HealthcareStart: 40-78-8952Qyjplh Wellness Visit (Medicare Advantage)Annual Wellness Visit (Medicare Advantage)[facility]ITALStart: 14-20-7856Bvkwgjvuk vaccinationINFLUENZA (#1) [facility] Hospitaltart: 21-80-0484tjkuylejhcQnzmtewxrkJwqtanld:V8Yfhqm: 94-17-9657YSITSDSKPW ASSESSMENTDEPRESSION ASSESSMENTSelect Medical OhioHealth Rehabilitation Hospitaltart: 19-50-3990FSGDH-19 VACCINE (4 - Moderna series)COVID-19 VACCINE (4 - Moderna series)[facility] Hospitaltart: 41-28-4480Eqwcnfhx vaccine (1 of 2)Shingles vaccine (1 of 2)[facility]ITALStart: 00-21-9448TKIYLUCQ VACCINE (1 of 2)SHINGRIX VACCINE (1 of 2)[facility] Hospitaltart: 80-42-8227VPBOLOXFE (FIT-DNA) COLOGUARD (FIT-DNA)[facility] Hospitaltart: 96-62-0997KtpwytwisidNWUCEMPIGMF [facility] Hospitaltart: 39-36-6255DGCLYFBSHZ CANCER SCREENINGCOLORECTAL CANCER SCREENINGSelect Medical [facility] Rehabilitation Hospitaltart: 39-14-3102UQ COLONOGRAPHYCT COLONOGRAPHY [facility] Hospitaltart: 13-97-9678VLCWHYWV SCREENDIABETES SCREENGood Samaritan Hospital Start: 79-54-5842GVRTS OCCULT BLOODFECAL OCCULT BLOODSelect Medical [facility] Rehabilitation Hospitaltart: 28-10-0469GEBHL SCREENLIPID SCREENSelect Medical [facility]Health Rehabilitation Hospitaltart: 00-59-3665Otjdqjdpm for malignant neoplasm of colonBON MEMORIAL [facility] SYSTEM [facility]OS[facility]ITALStart: 07-15-2012 SIGMOIDOSCOPYSIGMOIDOSCOPYSelect Medical [facility] Rehabilitation Hospitaltart: 14-70-8680Ekkge panelLipidsSENTARA CAREPLEX HOSPITALStart: 99-68-7847ReucaevbciyQKXOIVBBHPnjdflvqa ClinicStart: 57-85-6410VZE TESTINGHPV TESTINGSelect Medical [facility]Health Rehabilitation Hospitaltart: 98-12-0145Dbcqiiqqr for malignant neoplasm of cervixNOMS HealthcareStart: 98-32-1062HSM TESTINGPAP TESTINGSelect Medical [facility]Health Rehabilitation Hospitaltart: 31-36-4739Itsnudveq for malignant neoplasm of cervixPap SmearLAYTON HOSPITAL HealthcareStart: 2880Qovny microalbumin profile DTAP,TDAP,TD (1 - Tdap)[facility] Hospitaltart: 99-19-7399MSIPHSMGA C SCREENING HEPATITIS C SCREENINGSelect Medical OhioHealth Rehabilitation Hospitaltart: 33-17-7910Dvpmglibk C screening Hepatitis C screenSENTARA CAREPLEX HOSPITALStart: 62-62-6785ETY SCREENINGHIV SCREENINGSelect Medical [facility] Rehabilitation Hospitaltart: 76-09-1803AST screeningHIV screenSENTARA CAREPLEX HOSPITALStart: 71-06-1747Lknqkgebyw ScreenDepression ScreenSENTARA CAREPLEX HOSPITALStart: 47-97-1539BVTCN-19 VACCINE (#1)COVID-19 VACCINE (#1)[facility] Hospitaltart: 30-57-4940UFHDTCYLZ B (1 of 3 - 3-dose series)HEPATITIS B (1 of 3 - 3-dose series)[facility] Hospitaltart: 37-01-4881Glxagsqqo B vaccine (1 of 3 - 3- dose series)Hepatitis B vaccine (1 of 3 - 3-dose series)[facility] Start: 03-43-8214Cmasoocsd for malignant neoplasm of colonNOMS HealthcarePatient EducationKnow your MedMercy Health St. [facility] Work Phone: [facility] referralMemorial Hospital Work Phone: End: 32-95-2019RN KNEE GENERAL 4V AP BOTH/PA BOTH/LAT/MERC BILATERALXR KNEE GENERAL 4V AP BOTH/PA BOTH/LAT/MERC BILATERAL Radiology Routine Chronic pain of both knees 1 Occurrences starting 11/03/2022 until 4[facility] Work Phone: comment on above:1 Occurrences starting 11/03/2022 until 4[facility] Immunizations Immunization DateImmunizationNotesCare ZfxlvfvaQfevriio61-44-2423btbnwjscn virus vaccine, unspecified formulationFredmcdowell arh hospital Oscar Work Phone: [facility] HospitalUrzwraevlf36-45-3040EHLB-XgE-4 (COVID-19) mRNA- 1273 vaccineNorth [facility] Health [facility]04-01-2021SARS-CoV-2 (COVID-19) mRNA-1273 vaccineNorth Shore Health [facility]10-31-2018Influenza, injectable, Madin Bernard Canine Kidney, preservative free, quadrivalentCasandra McFrederick PA-C Work Phone: [place] Ukuwcj34-73-1085lsepmgtmb, seasonal, injectable, preservative freeCasandra McFrederick PA-C Work Phone: [place] Qbzvia52-25-2125bmmzeneyo, seasonal, injectable, preservative freeCasandra McFrederick PA-C Work Phone: [place] Wrciwt94-51-0700tbrpfedwy, seasonal, injectable, preservative freeCasandra McFrederick PA-C Work Phone: [place] Yymwpr98-94-9716vepivhuvo B vaccine, pediatric or pediatric/adolescent dosageCasandra McFrederick PA-C Work Phone: [facility]velMadison HealthRifkld87-57-1820ozsljftrj B vaccine, unspecified formulationCasandra Irish [place] Work Phone: cmetrohealth parma medical centerand [facility] Payers DatePayer CategoryPayerPolicy [id number]-fny [id number] [id number] [id number] 2021Medicare [id number] [id number] [id number] 2.0.1.978637.3.57[id number] 2..1.465468.3.57[id number] 2.0.1.550435.3.57[id number] 2.0.1.577924.3.579.[id number] 2.0.1.373068.3.579.2.77440-00-2172Scbuqgq2655405 2.0.1.034062.3.579.[id number] 2.0.1.405598.3.579.2.75596-80-2034Gbcdfxe7154216 2.0.1.408898.3.579.2.47158-55-8907Qkfqynq2306085 2.840.1.050764.3.579.2.73146-97-5733Eudrkfl9010015 2.840.1.646879.3.579.2.03949-36-9409Gpzvuig20561679 2.16.840.1.719892.3.579.[id number] 2.840.1.725686.3.579.2.[id number] 2.0.1.986126.3.579.2.441055-42-6766Lanwzxr343432829 2.840.1.924823.3.579.2.253957-96-4220Hhgxvut138775054 2.0.1.782620.3.579.2.9[id number] 2.0.1.922158.3.579.2.60[id number] 2.0.1.345982.3.579.2.254741-11-6768Icywimw662169597 2.840.1.170208.3.579.2.197225-63-1639Zhvlbka868386959 2.0.1.314651.3.579.2.576640-64-2400Tvmpvuq011509055 2.840.1.958861.3.57[id number] 2.840.1.749536.3.57[id number] 2.840.1.682244.3.57[id number] 2.840.1.009970.3.57[id number] 2..840.1.136703.3.57[id number] 2.16.840.1.507502.3.57[id number] 2..0.1.222931.3.57[id number] 2.16.840.1.733843.3.57[id number] 2.16.840.1.4[id number] 2.16.840.1.861793.3.579.2.531 Social History DateTypeDetailFacilityStart: 01-25-2021 End: 96-42-6874Ijaqftw smoking statusEx-smoker (finding)[facility] End: 57-83-9047Yxa Assigned At BirthFeKindred HealthcareHistory of tobacco useCurrent smokerGood Samaritan HospitalHistory of tobacco useCigarette SmokerSelect Medical [facility] Hospitaltart: 08-15-2017 End: [id number] use and exposureSmokeless tobacco non-userSelect Medical OhioHealth Rehabilitation Hospitaltart: 08-14-2018 End: 90-33-4984Zshgbtu intakeCurrent drinker of alcohol (finding)[facility]: 11-22-2018 End: 12-48-7775Bztpddx of Social functionNOMS HealthcarePHQ-2 Xhbuu6LvuiezmleSelect Medical [facility] Rehabilitation Hospitaltart: 86-28-7794Bwwulvf Commentquit 2013[facility] Hospitaltart: 07-30-2013 Alcohol CommentsocialSelect Medical [facility] Rehabilitation Hospitaltart: 98-81-6888Jqm Assigned At BirthNot on fileSelect Medical OhioHealth Rehabilitation Hospitaltart: 61-06-4168Qvp Assigned At BirthFeDayton Osteopathic Hospitaltart: 55-86-4213Ypqqhkq smoking status NHISNever smoked tobaccoNOMA HealthcareStart: 89-65-4602Ogqbyro intakeEx-drinker (finding)NOMS HealthcareHow often to you have a drink containing alcohol?2-3 time sa weekNOMS HealthcareHow many standard drinks containing alcohol do you have on a typical day?1 or 2NOMS HealthcareHow often do you have 6 or more drinks on 1 occasion? NeverNOMA HealthcareStart: 45-98-7065Tlzaqdl Commentcaffeine intake: 1-2 cups per dayNOMA HealthcareTobacco smoking status NHISTobacco smoking consumption unknownBON MEMORIAL HEALTH SYSTEM SELBY GENERAL HOSPITALSexFemale (finding)[facility] Goals DatePatient GoalDesired Activity/State Clinical Notes 10-06-2021 to 01-01-2025 Note Date & DbdxBcvdPnfpywvo68-02-9801 History of Present illness Narrative* Prisca Michel DO - 01/01/2025 11:30 AM EDT Images from the original note were not included. Fredi Richardson is a 59 y.o. female presents for 1st pow Rt. exc. bx HPI: HPI Fredi presents for her first post op from right excisional biopsy, she is doing well OBJECTIVE: Physical Exam Chest: Comments: Right breast circumareolar incision is healing well ASSESSMENT AND PLAN: Assessment/Plan Diagnoses and all orders for this visit: Intraductal papilloma of breast, right The path confirmed a benign intraductal papilloma. She can return to yearly screening mammography. I'll see her PRN documented in this encounterSaint Louis University HospitalCiddlvfbii37-69-2258 Radiology Diagnostic study noteSCCI [facility] Main [place] [address] [place] [address] Ultrasound Report Signed Patient: Fredi Richardson MR#: [id number] : 1965 Acct:[id number] Age/Sex: 59 / F ADM Date: 5 Loc: [place] Room: Type: [facility] Attending Dr: Prisca Michel DO Ordering Provider: Prisca Michel DO Date of Service: 12/19/24 US/US breast needle loc RT: RIGHT BREAST MASS Copies to: Prisca Michel DO~ ULTRASOUND GUIDED RADIOIODINE SEED LOCALIZATION OF THE RIGHT BREAST: CLINICAL DATA: Right breast papilloma PROCEDURE: Following sterile preparation and local anesthetics a needle containing of 0.144?Ci of iodine 125 was placed under the ultrasonographic guidance. Following confirmation of the tip of the needle position an Iodine seed was deployed. Adjacent to the needle entry the skin was marked 1 SEED to indicate the seed localization. The patient tolerated the procedure well and left the department in stablecondition. US/US breast needle loc RT IMPRESSION: STATUS [...] GUIDED SEED LOCALIZATION OF THE RIGHT BREAST. RESULT CODE: NL Impression dictated by: Abel Mcgraw Jr., D.OMatthew 12/19/2024 1:58 PM Dictation Location: [facility] Tech: Grecia Cunningham Transcribed By: PONCE 12/19/24 1358 Dictated By: Abel Mcgraw Jr, DO 12/19/24 1351 Signed By: 12/19/24 1358 [facility]08-20-2025 History of Present illness Narrative * Prisca Michel DO - 12/10/2024 2:00 PM EDT Images from the original note were not included. Fredi Richardson 1965 Fredi Richardson is a 59 y.o. female presents with chief complaint of Suspicious mamms (Right breast, Bx already completed) HPI: HPI Fredi states she has always had clear nipple discharge when she squeezes them for a SBE. In October she noticed a red/brown color to the discharge of the right breast. She called her PCP and was scheduled for mamm and subsequent US. She was diagnosed with dilated ducts behind the right nipple and a biopsy was done that showed a papilloma. She presents today for further treatment. SUBJECTIVE: MEDICATIONS: ALLERGIES Current Outpatient Medications Medication Instructions Advair HFA 230-21 MCG/ACT inhaler 2 puffs, Inhalation, 2 times daily RT albuterol HFA 90 mcg/act inhaler 2 puffs, Inhalation, Every 4 hours PRN albuterol 2.5 mg, Nebulization, Every 6 hours PRN amLODIPine (NORVASC) 2.5 mg, Oral, Daily buPROPion SR (WELLBUTRIN SR) 150 mg, Oral, Every 24 hours cetirizine (ZYRTEC) 10 mg, Oral, Daily citalopram (CELEXA) 10 mg, Oral, Daily RT cyclobenzaprine (Flexeril) 10 MG tablet 1 tablet, Oral, 3 times daily DULoxetine (CYMBALTA) 30 mg, Oral, Every 24 hours Fasenra 30 mg, Subcutaneous, Every 28 days fluticasone (Flonase) 50 MCG/ACT nasal spray 1 spray, Each Nostril, Every 24 hours furosemide (LASIX) 40 mg, Oral, Daily ibuprofen 800 mg, Oral, 3 times daily oxyCODONE-acetaminophen (Percocet) 5-325 MG tablet 1 tablet, Oral, Every 4 hours PRN Singulair 10 mg, Oral, Every 24 hours spironolactone (ALDACTONE) 25 mg, Oral, Daily zolpidem (AMBIEN) 10 mg, Oral, Every 24 hours Allergies Allergen Reactions Penicillins Hives and Rash Prochlorperazine Anxiety Other Reaction(s): hives, Mental Status Change PAST MEDICAL HISTORY: SOCIAL HISTORY SURGICAL HISTORY: Past Medical History: Diagnosis Date Allergic rhinitis Anemia sickle cell trait Asthma (HCC) Back pain, thoracic Chronic pansinusitis Congenital urethral stenosis DJD (degenerative joint disease) Hypertension Insomnia Major depressive disorder Migraine Nasal congestion Pneumonia 2019 PTSD (post-traumatic stress disorder) Social History Tobacco Use Smoking status: Never Smokeless tobacco: Never Substance Use Topics Alcohol use: Not Currently Alcohol/week: 0.0 - 1.0 standard drinks of alcohol Comment: caffeine intake: 1-2 cups per day Drug use: Never Past Surgical History: Procedure Laterality Date BACK SURGERY 2014 and 2016 BI US GUIDED BREAST LOCALIZATION AND BIOPSY LEFT Left 11/06/2024 BI US GUIDED BREAST LOCALIZATION AND BIOPSY LEFT 11/06/2024 CARPAL TUNNEL RELEASE Bilateral SECTION, CLASSIC 1989 HERNIA REPAIR HYSTERECTOMY 2015 OTHER SURGICAL HISTORY 02/2021 urological procedure FAMILY HISTORY Family History Problem Relation Name Age of Onset Cancer Mother Heart failure Mother Diabetes Father Cancer Father REVIEW OF SYMPTOMS: Review of Systems Constitutional: Negative for diaphoresis and unexpected weight change. HENT: Negative for hearing loss, tinnitus and voice change. Breasts: Positive for breast discharge. Respiratory: Negative for shortness of breath. Cardiovascular: Negative for chest pain and palpitations. Musculoskeletal: Positive for arthralgias. Neurological: Negative for dizziness, seizures and headaches. All other systems reviewed and are negative. Hematological: Negative for adenopathy. Does not bruise/bleed easily. OBJECTIVE: Visit Vitals Smoking Status Never Physical Exam Exam conducted with a application designer present. HENT: Head: Normocephalic. Cardiovascular: Rate and Rhythm: Normal rate and regular rhythm. Pulmonary: Effort: Pulmonary effort is normal. Breath sounds: Normal breath sounds. Chest: Comments: Bilateral supraclavicular, infraclavicular, bicipital and axillary lymph nodes were foundto be normal. Each breast was examined in the sitting and supine position, there was no evidence ofmasses, dimpling or discharge in either breast Abdominal: General: Abdomen is flat. Bowel sounds are normal. Palpations: Abdomen is soft. Skin: General: Skin is warm and dry. Neurological: Mental Status: She is alert. ASSESSMENT AND PLAN: Assessment/Plan Diagnoses and all orders for this visit: Nipple discharge - Ambulatory referral to General Surgery Intraductal papilloma of breast, right Fredi had bilateral mamm's and right breast US on 10/21/24 In the right retroareolar region at the 12:00 position hypoechoic, filled duct measuring up to 1.6 cm in length. Ultrasound-guided biopsy is recommended. Fredi had the biopsy at [facility] and was diagnosed with an intraductal Papilloma. Since her motherhad breast cancer I suggest we do an excisional biopsy of the area and she is in agreement. I explained the pathology to the patient and suggest we do a wide excision of the area. I explainedthat it will be done as an out patient under MAC anesthesia. In this procedure, we will not be removing or sampling the lymph nodes. I also explained that if the final pathology is positive for cancer, additional surgical procedures may be required. I explained the procedure of using a seed for localization of the breast lesion. We discussed the removal of the seed and original biopsy clip and that I will replace the original clip with new marking clips or a VeraForm radiopaque suture. The patient is in agreement and arrangements have been made. documented in this encounterSaint Louis University HospitalEftwzjklxk24-94-4913 NoteHNO ID: [id number] Author: Gissel Yañez PA-C Service: ? Author Type: Physician Cryptologic Linguist Type: Progress Notes Filed: 11/20/2022 4:50 PM [...] knee joints Informed Consent Consent Obtained: Verbal [place] Protocol A moment to CARE was completed. [...] and the patient voiced understanding of these instructions.[facility]07-31-2023 History of Present illness Narrative* Gissel Yañez PA-C - 11/20/2022 4:47 PM EDTAssociated Order(s): Large Joint Arthro/Inj: bilateral knee joints [...] risks, benefits, alternatives and expected outcomes of thisinjection in detail, and the patient agreed to proceed. The procedure was performed as detailed below. Large Joint Arthro/Inj: bilateral knee joints Informed Consent Consent Obtained: Verbal [place] Protocol A moment to CARE was completed. [...] the patient voiced understanding of these instructions. * IrishChadwickGisselPAULETTE jennings - 11/20/2022 9:34 AM EDT CONSULT ORTHOPAEDIC: KNEE PRIMARY CARE PHYSICIAN: Kala [...] a barrier to exercise. 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 We discuss our Get Ready program. She [...] also been placed. After discussion with Fredi Richardson, continued non-operative management of physical therapy, injection(s), and referral to Get Ready program was chosen. The patient currently has had six months of unsuccessful non-operative treatment as outlined in the HPI below. The patient has been ordered: Physical therapy CONSULTS: Get Ready Program for weight management assistance. ACTIVE PROBLEM LIST Fibroid Uterus SUBJECTIVE CHIEF COMPLAINT: Knee Pain HPI: Fredi Richardson is a 57 year old patient here for evaluation and management of bilateral knee pain. Fredi Richardson has had progressive problems with the knee(s) constantly over the past 6 year(s) interfering with activities which include exercise, walking, rising from a sitting position, standing for prolonged periods of time, getting in and out of a car, and climbing stairs. Currently the pain in the joint is rated at 9 out of 10 with moderate activity. The pain is chronicand is located along the inside aspect and in the front. The pain is described as aching and severe. Relieving factors include rest. There is no specific incident that brought about this pain. Fredi Richardson also complains of stiffness. 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 Author Type: Physician Cryptologic Linguist Type: Progress Notes Filed: 11/20/2022 4:50 PM [...] exercise. 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 We discuss our Get Ready program. She [...] also been placed. After discussion with Fredi Richardson, continued non-operative management of physical therapy, injection(s), and referral to Get Ready program was chosen. The patient currently has had six months of unsuccessful non-operative treatment as outlined in the HPI below. The patient has been ordered: Physical therapy CONSULTS: Get Ready Program for weight management assistance. ACTIVE PROBLEM LIST Fibroid Uterus SUBJECTIVE CHIEF COMPLAINT: Knee Pain HPI: Fredi Richardson is a 57 year old patient here for evaluation and management of bilateral knee pain. Fredi Richardson has had progressive problems with the knee(s) [...] incident that brought about this pain. Fredi Richardson also complains of stiffness. 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 Author Type: Technologist Type: Progress Notes Filed: 11/20/2022 8:41 AM Note Text: Radiology Service Progress Note PATIENT NAME: Fredi Richardson DATE OF SERVICE: November 20, 2022 TIME: [...] BY: RT Quita(R) November 20, 2022 8:40 [facility]07-31-2023 History of Present illness Narrative* Stanley Martinez RT(R) - 11/20/2022 9:00 AM EDT Radiology Service Progress Note PATIENT NAME: Fredi Richardson DATE OF SERVICE: November 20, 2022 TIME: 8:40 AM PATIENT IDENTITY VERIFICATION COMPLETED USING TWO (2) IDENTIFIERS: Name and Date of confirmedby patient verbally. FALL SCREENING: Has the patient had 2 falls in the last year or 1 fall with injury or currently using an Ambulatory Assistive Device (Walker, Cane, Wheelchair, Crutches, etc.)? No PATIENT GENDER DATA: Female. status: : No status: NO. PATIENT RELEVANT IMPLANT DATA REVIEWED: Not Applicable RADIOLOGY DEPARTMENT: General X-ray: Exam(s) Completed: Lower Extremity X- Ray(s): Knee, AP / Lat / Tunne / Merchant Bilateral and Wt. Bearing PERIPHERAL IV DATA: Not applicable SIGNED BY: RT Quita(R) November 20, 2022 8:40 AM documented in this encounterGood Samaritan Hospital03-16-2023 NoteCONSULTATION PROCEDURE DATE: 07/06/2022 HISTORY: Patient returns to [...] following the injection. Patient tolerated the procedure well.[facility] CenterLktljshp84-33-1806 Note CONSULTATION CONSULTATION DATE: 06/08/2022 HISTORY: This [...] drive herself. She prefers to go to [place], but it is highly recommended to her to go to the emergency department here at [facility], across the parking lot. We will follow up with her and reschedule her for an appointment.[facility] CenterDbbchjpl02-24-8796 NoteCONSULTATION PROCEDURE DATE: 02/15/2022 PREOPERATIVE DIAGNOSIS: Bilateral knee [...] will be followed up in the clinic thereafter.[facility] CenterUrgomxnz31-57-5332 NoteCONSULTATION CONSULTATION DATE: 01/19/2022 HISTORY OF PRESENT ILLNESS: [...] care and will return in 2-3 weeks' time.[facility] CenterFrzoizfc19-80-1345 NoteCONSULTATION PROCEDURE DATE: 01/19/2022 PREOPERATIVE DIAGNOSIS: Right paravertebral [...] well, will be followed up in the clinic.[facility] CenterGfltfard24-54-4056 NoteCONSULTATION PROCEDURE DATE: 10/18/2021 PREOPERATIVE DIAGNOSIS: Osteoarthritis of [...] range of motion exercises subsequent to this. [facility] Signed and Approved by: DR CADENCE LUKE . 11/01/2021 07:55:00[facility] CenterZjrylzgh24-13-4945 NoteCONSULTATION CONSULTATION DATE: 10/06/2021 HISTORY OF PRESENT ILLNESS: [...] plan of care and all questions answered. [facility] Signed and Approved by: ORVILLE PETERS . 10/19/2021 16:23:00[facility] No data available for this section [facility]* Diagnosis Chronic pain of both knees- Primary documented [facility] encounter [facility]* Diagnosis Bilateral primary osteoarthritis of knee- Primary Class 3 severe obesity due to excess calories without serious comorbidity with body mass index (BMI) of 50.0 to 59.9 in adult (HCC) documented in this encounter [facility]* Diagnosis Chronic pain of both knees documented in this encounter [facility] noteNo assessment information availableMemorial Hospital Work Phone: Evaluation note* Diagnosis Perichondritis of auricle, left- Primary documented in this encounter [facility] HealthcareEvaluation note* Diagnosis Acute left ankle pain documented in this encounter [facility]ANDRANDARCI[facility]Fred HEALTHEvaluation note* Diagnosis Nipple discharge- Primary Other sign and symptom in breast Intraductal papilloma of breast, right documented in this encounter [facility]Evaluation note* Diagnosis Intraductal papilloma of breast, right- Primary documented in this encounter [facility] HealthcareHistory of Present illness Narrative* Christine Bowman MD - 05/30/2023 10:20 AM EST Subjective Patient ID: Fredi Richardson is a 57 y.o. female who presents [...] back pain 05/16/2023 Chronic obstructive pulmonary disease ([facility]/HCC) 01/02/2020 Degenerative thoracic spinal stenosis 05/16/2023 Essential hypertension ([facility]) 04/29/2020 Fibroid uterus 09/01/2013 Lumbar stenosis 11/27/2016 Nasal congestion 05/16/2023 Shortness of breath 04/29/2020 Perichondritis of auricle, left 05/16/2023 Resolved Ambulatory Problems Diagnosis Date Noted Morbid obesity with BMI of 50.0-59.9, adult ([facility]) 01/02/2020 Past Medical History: Diagnosis Date Anemia Asthma (CMS/HCC) Back pain, thoracic Chronic pansinusitis Congenital urethral stenosis DJD (degenerative joint disease) Hypertension ([facility]) Insomnia Major depressive disorder (CMS/HCC) Migraine (CMS/[facility]) Pneumonia 2019 PTSD (post-traumatic stress disorder) ([facility]) Past Surgical History: Procedure Laterality Date BACK SURGERY 2015 and 2016 CARPAL TUNNEL RELEASE Bilateral SECTION, CLASSIC 1989 HERNIA REPAIR HYSTERECTOMY 2015 OTHER SURGICAL HISTORY 02/2021 urological procedure Allergies [...] evaluated for autoimmune perichondritis documented in this encounterNOPemiscot Memorial Health SystemsHospital Discharge instructions No data available for this section [facility] WestHoital Discharge instructions Additional Instructions DISCHARGE INSTRUCTIONS FOR GENERAL SURGERY YOUR ACTIVITY MAY INCLUDE: No restrictions on activities I recommend wearing a bra for support throughout the day. It is not necessary to sleep with it. WOUND CARE/INCISION CARE: The sutures are underneath the skin and will dissolve by themselves. The incisions are covered with surgical glue, there is no need for additional Band-Aids It is safe to get the wounds wet with soap and water in the shower, no hot tubs or tub baths. - Is it common to feel pulling or sharp sticking sensations in the area of incision, these sensations are a part of the normal healing process. - If you develop fever, increasing pain, redness, or swelling around the incision, please notify our office MEDICATION - Resume all previous medications that you were taking for problems unrelated to your surgery, unless informed otherwise. If there are any problems with this, please call the original prescribing doctor. If you have any other questions regarding medications, please call our office. - Over the counter medications such as Acetaminophen, Ibuprofen, Naproxen, and others may be used as directed for pain unless a prescription was provided.[facility] Work Phone: Progress note No data available for this section [facility] for referral (narrative)* Diagnostic Procedure Only (Routine) - Pending ReviewSpecialtyDiagnoses / Procedures Referred By ContactReferred To ContactXR IMAGING Diagnoses Chronic pain of both knees Procedures XR KNEE GENERAL 4V AP BOTH/PA BOTH/LAT/MERC BILATERAL RADIOLOGIC EXAM KNEE COMPLETE 4/MORE VIEWS Gissel Yañez PA-C [address] [address] Xr Imaging Referral IDStatusReasonStart DateExpiration DateVisits RequestedVisits [id number] Review Auto-Generated Referral [facility] for referral (narrative)* Diagnostic Procedure Only (Routine) - ClosedSpecialtyDiagnoses / ProceduresReferred By ContactReferred To ContactXR IMAGING Diagnoses Chronic pain of both knees Procedures XR KNEE GENERAL 4V AP BOTH/PA BOTH/LAT/MERC BILATERAL RADIOLOGIC EXAM KNEE COMPLETE 4/MORE VIEWS Gissel Yañez PA-C [address] [address] Xr Imaging Referral IDStatusJadeStwilmer DateExpiration DateVisits RequestedVisits [id number] Auto-Generated Referral / [facility] for referral (narrative)No reason for referral information availableUniversity Hospitals Ahu[facility]tr Work Phone: Summary Purpose Family History No Family History Records Found Relationship Condition Age at Onset Recorded Date/T cristal Not Specified Diabetes mellitus Unknown Malignant neoplasm of breastUnknownHypertensionUnknownKidney disorderUnknown fatherDiabetes mellitusUnknownMalignant neoplasm of prostateUnknowngrandparent Diabetes mellitusUnknown Relationship Condition Age at Onset Recorded Date/T cristal mother Diabetes mellitus Unknown Malignant neoplasm of breastUnknownHypertensionUnknownKidney disorderUnknown fatherDiabetes mellitusUnknownMalignant neoplasm of prostateUnknowngrandparent Diabetes mellitusUnknown Advance Directives No Advanced Directives Records Found Advance Directive Response Recorded Date/ Time Advance Directives No March 11:14am Reason for Referral SpecialtyDiagnoses / ProceduresReferred By ContactReferred To ContactRadiology Diagnoses Acute left ankle pain Procedures MRI ANKLE LEFT WO CONTRAST Dorothea Núñez, PEOPLESOFT FUNCTIONAL ANALYST - HEALTH EDUCATION ASSISTANT [address] [place] [address] Referral IDStatusFlorasonStwardensville DateExpiration DateVisits RequestedVisits [id number]/20/202411/[id number] / Procedures Referred By ContactReferred To ContactREHAB AND SPORTS THERAPY INS Diagnoses Class 3 severe obesity due to excess calories without serious comorbidity with body mass index (BMI) of 50.0 to 59.9 in adult (HCC) Bilateral primary osteoarthritis of knee Procedures CONSULT TO PHYSICAL THERAPY PHYSICAL THERAPY EVALUATION HIGH COMPLEX 45 MINS Gissel Yañez PA-C [address] [place] [address] [facility] [place] [address] [place] [address] Referral IDStatLucieStwilmer DateExpiration DateVisits RequestedVisits [id number] Review Auto-Generated Referral /[id number] / ProceduresReferred By ContactReferred To Contact Diagnoses Class 3 severe obesity due to excess calories without serious comorbidity with body mass index (BMI) of 50.0 to 59.9 in adult ([facility]) Bilateral primary osteoarthritis of knee Procedures ENDOCRINE MEDICAL WEIGHT MANAGEMENT OFFICE/OUTPATIENT [facility] 60-74 MINUTES Gissel Yañez PA-C [address] [place] [address] Referral IDStatusJadeStwilmer DateExpiration DateVisits RequestedVisits [id number] Review PCP Requested Referral / Medications Administered Section Medication OrderMAR ActionAction DateDoseRateSite BUPivacaine (PF) 0.5 % (5 mg/mL) 4 mL injection 4 mL, Injection - FOR ORTHO USE ONLY, ONE TIME INJECTION, 1 dose, Starting on Sun11/20/22 at 1648, Until Sun11/20/22 at 1648 Given11/20/2022 4:48 PM EDT4 mLKnee, Left BUPivacaine (PF) 0.5 % (5 mg/mL) 4 mL injection 4 mL, Injection - FOR ORTHO USE ONLY, ONE TIME INJECTION, 1 dose, Starting on Sun11/20/22 at 1648, Until Sun11/20/22 at 1648 Given11/20/2022 4:48 PM EDT4 mLKnee, Right lidocaine (PF) 10 mg/mL (1 %) 4 mL injection (XYLOCAINE) 4 mL, Injection - FOR ORTHO USE ONLY, ONE TIME INJECTION, 1 dose, Starting on Sun11/20/22 at 1648, Until Sun11/20/22 at 1648 Given11/20/2022 4:48 PM EDT4 mLKnee, Left lidocaine (PF) 10 mg/mL (1 %) 4 mL injection (XYLOCAINE) 4 mL, Injection - FOR ORTHO USE ONLY, ONE TIME INJECTION, 1 dose, Starting on Sun11/20/22 at 1648, Until Sun11/20/22 at 1648 Given11/20/2022 4:48 PM EDT4 mLKnee, Right triamcinolone acetonide 80 mg injection (KeNALog 40) 80 mg, Injection - FOR ORTHO USE ONLY, ONE TIME INJECTION, 1 dose, Starting on Sun11/20/22 at 1648,Until Sun11/20/22 at 1648 Given11/20/2022 4:48 PM EDT80 mgKnee, Left triamcinolone acetonide 80 mg injection (KeNALog 40) 80 mg, Injection - FOR ORTHO USE ONLY, ONE TIME INJECTION, 1 dose, Starting on Sun11/20/22 at 1648,Until Sun11/20/22 at 1648 Given11/20/2022 4:48 PM EDT80 mgKnee, Right Chief Complaint and Reason for Visit Chief Complaint Admit Date Right Breast Mass December 16, 2024 2: 41pm Chief Complaint Admit Date Right Breast Mass December 16, 2024 2: 41pm Right Breast Mass December 23, 2024 9:21am Additional Source Comments INFORMATION SOURCE (unrecogn ized section and content) DATE CREATED AUTHOR 10/16/2017 [facility] DATE CREATED AUTHOR AUTHOR'S ORGANIZ ATION 10/17/2017 [facility] DATE CREATED AUTHOR AUTHOR'S ORGANIZ ATION 04/14/2021 [facility] DATE CREATED AUTHOR AUTHOR'S ORGANIZ ATION 09/06/2022 [facility] DATE CREATED AUTHOR AUTHOR'S ORGANIZ ATION 11/21/2022 [facility] DATE CREATED AUTHOR AUTHOR'S ORGANIZ ATION 04/01/2023 [facility] DATE CREATED AUTHOR AUTHOR'S ORGANIZ ATION 09/30/2023 [facility] DATE CREATED AUTHOR AUTHOR'S ORGANIZ ATION 11/15/2024 [facility] DATE CREATED AUTHOR AUTHOR'S ORGANIZ ATION 12/07/[address] [facility] DATE CREATED AUTHOR AUTHOR'S ORGANIZ ATION 12/28/[address] [facility] DATE CREATED AUTHOR AUTHOR'S ORGANIZ ATION 01/03/2025 [facility] EPIC Patient Care team informatio n (unrecognized section and content) Team MemberRelationshipSpecialtyStart DateEnd Date Kala Conte PCP - GeneralFamily Medicine06/18/17 Judson White [address] [place] [address] Referring08/28/22Team MemberRelationshipSpecialtyStart DateEnd Date Kala Conte PCP - GeneralFamily Medicine06/18/17 Judson White [address] [place] [address] Referring08/28/22Team MemberRelationshipSpecialtyStart DateEnd Date Kala Conte PCP - GeneralFamily Medicine06/18/17 Judson White [address] [place] [address] Referring08/28/22Team MemberRelationshipSpecialtyStart DateEnd Date Kala Conte MD [address] [place] [address] PCP - GeneralPediatrics2/11/13Team MemberRelationshipSpecialtyStart DateEnd Date Kala Conte MD [address] [place] [address] [facility] - [facility]09/27/23Team MemberRelationshipSpecialtyStart DateEnd Date Kala Conte MD [address] [place] [address] PCP - GeneralPediatric05/30/23Team MemberRelationshipSpecialtyStart DateEnd Date Kala Conte MD [address] [place] [address] [facility] - [facility] Team Status: Active Member Role Status Dates NON STAFF Primary Care Provider Active Team Status: Inactive Member Role Status Dates Prisca Michel DO Attending Provider Active Start: December 16, 2024 End: December 16, 2024NON STAFFPrimary Care ProviderActiveStart: December 16, 2024 End: December 16, 2024 Team Status: Inactive Member Role Status Dates Prisca Michel DO Attending Provider Active Start: December 23, 2024 End: December 23, 2024NON STAFFPrimary Care ProviderActiveStart: December 23, 2024 End: December 23, 2024Team MemberRelationshipSpecialtyStart DateEnd Date Kala Conte MD [address] [place] [address] [facility] - [facility]/30/23 Source Comments (unrecognize d section and content) In the event this informatio n is protected by the Federal Confidentiality of Alcohol and Drug Abuse Patient Records regulations: The Federal rules restrict any use of the information to criminally investigate or prosecute any alcohol or drug abuse patient.[facility] the event this information is protected by the Federal Confidentiality of Alcohol and Drug Abuse Patient Records regulations: The Federal rules restrict any use of the information to criminally investigate or prosecute any alcohol or drug abuse patient.[facility] HospitalIn the event this information is protected by the Federal Confidentiality of Alcohol and Drug Abuse Patient Records regulations: The Federal rules restrict any use of the information to criminally investigate or prosecute any alcohol or drug abuse patient.[facility] Reason for Visit (unrecogniz ed section and content) ReasonCommentsKnee PainReasonCommentsRadio Gen [id number] / ProceduresReferred By ContactReferred To ContactXR IMAGING Diagnoses Chronic pain of both knees Procedures XR KNEE GENERAL 4V AP BOTH/PA BOTH/LAT/MERC BILATERAL RADIOLOGIC EXAM KNEE COMPLETE 4/MORE VIEWS Gissel Yañez PA-C [address] [address] Xr Imaging Referral IDStatusReasonStart DateExpiration DateVisits RequestedVisits [id number] Auto-Generated Referral /[id number] Problem2 wk recheck earSpecialtyDiagnoses / ProceduresReferred By ContactReferred To ContactRadiology Diagnoses Acute left ankle pain Procedures MRI ANKLE LEFT WO CONTRAST Danna, Dorothea J, [employer]CTION[employer] ANALYST - HEALTH EDUCATION ASSISTANT [address] [place] [address] Referral IDStatusReasonStart DateExpiration DateVisits RequestedVisits [id number] mammsRight breast, Bx already completedSpecialtyDiagnoses / ProceduresReferred By Contact Referred To ContactGeneral Surgery Diagnoses Nipple discharge Procedures ME OFFICE/OUTPATIENT [facility] 60 MINUTES Ty Brooks MD [address] [facility], [place] [address] Phone: tel: fax: [facility] [address] [address] Phone: tel: fax: Referral IDStatusReasonStart DateExpiration DateVisits RequestedVisits [id number] Specialty Services Required /[id number] pow Rt. exc. bx Goals (unrecognized section and content) Goals may [...] BE BASED ON THE PRIMARY CLINICAL RECORDS. [employer] provides no warranty or guarantee of the accuracy or completeness of information in this document.
--- NOTE | 2025-03-02 14:43 | PM.CN ---
Consult Note: HPI Data of Consult Patient: known to practice within the last 3 years Requesting Physician: Efren Paredes MD Primary Care Provider: Kala Conte Consult Narrative Reason for consult: low back, knee pain Narrative: 59yof who presents for assessment. continues to have low back, bilateral knee pain. recovering well from achilles surgery. continues to use percocet, tizanidine. denies adverse med side effects. cc:: CC: Efren Paredes MD Review of Systems ROS Status of ROS 10 or more systems reviewed and unremarkable except as noted in history and below [facility] Medical History Acid reflux ?K21.9 - Gastro-esophageal reflux disease without esophagitis (ICD-10) Low back pain ?M54.50 - Low back pain, unspecified (ICD-10) Hypertension ?I10 - Essential (primary) hypertension (ICD-10) Asthma ?J45.909 - Unspecified asthma, uncomplicated (ICD-10) Surgical History History of carpal tunnel release ?Z98.890 - Other specified postprocedural states (ICD-10) History of endometrial ablation ?Z98.890 - Other specified postprocedural states (ICD-10) History of lumbar surgery ?Z98.890 - Other specified postprocedural states (ICD-10) H/O abdominal hysterectomy ?Z90.710 - Acquired absence of both cervix and uterus (ICD-10) History of primary section ?Z98.891 - History of uterine scar from previous surgery (ICD-10) Hx of ventral hernia repair ?Z98.890 - Other specified postprocedural states (ICD-10) ?Z87.19 - Personal history of other diseases of the digestive system (ICD-10) Meds Home Medications and Allergies Home Medications ?Medication ?Instructions ?Recorded ?Confirmed ?Type albuterol sulfate 90 mcg/actuation 2 inh inhalation Q6H PRN shortness 10/18/22 08/11/24 History aerosol inhaler (Ventolin HFA) of breath bupropion HCl 150 mg tablet,12 hr 150 mg PO BID 10/18/22 08/11/24 History sustained-release (Wellbutrin SR) duloxetine 30 mg capsule,delayed 30 mg PO DAILY 10/18/22 08/11/24 History release (Cymbalta) spironolactone 25 mg tablet 25 mg PO DAILY 10/18/22 08/11/24 History zolpidem 10 mg tablet (Ambien) 10 mg PO BEDTIME 10/18/22 08/11/24 History naloxone 4 mg/actuation nasal 4 mg intranasal Q3M PRN opioid 12/07/22 08/11/24 Rx spray (Narcan) overdose #2 ea tizanidine 4 mg tablet 4 mg PO DAILY PRN muscle 12/12/23 08/11/24 Rx spasticity #30 tabs oxycodone-acetaminophen 5 mg-325 1 tab PO BID PRN pain #60 tabs 05/07/24 08/11/24 Rx mg tablet (Percocet) oxycodone-acetaminophen 5 mg-325 1 tab PO BID PRN pain #60 tabs 08/19/24 Rx mg tablet (Percocet) naloxone 4 mg/actuation nasal 4 mg intranasal Q2M PRN opioid 09/18/24 Rx spray (Narcan) overdose #1 ea oxycodone-acetaminophen 5 mg-325 1 tab PO BID PRN pain #60 tabs 09/18/24 Rx mg tablet (Percocet) oxycodone-acetaminophen 5 mg-325 1 tab PO BID PRN pain #60 tabs 10/31/24 Rx mg tablet (Percocet) oxycodone-acetaminophen 5 mg-325 1 tab PO BID PRN pain #60 tabs 11/24/24 Rx mg tablet (Percocet) oxycodone-acetaminophen 5 mg-325 1 tab PO BID PRN pain #60 tabs 01/01/25 Rx mg tablet (Percocet) tizanidine 4 mg capsule 4 mg PO HS PRN muscle spasticity 01/01/25 Rx #30 caps oxycodone-acetaminophen 5 mg-325 1 tab PO BID PRN pain #60 tabs 02/11/25 Rx mg tablet (Percocet) Allergies Allergy/AdvReac Type Severity Reaction Status Date / Time Penicillins Allergy Hives Verified 08/11/24 10:36 prochlorperazine (From Allergy JITTERY Verified 08/11/24 10:36 Compazine) Exam Narrative Exam Narrative: Psych-alert and oriented x 3. Attentive and appropriate, constitutionally normal, displays normal mood and affect per situation.? There are no obvious deficits in memory, reasoning, or intellect.? Skin-no obvious rashes, bruising, erythema noted to the patient's area of pain. Extremities- extremities are warm with minimal edema and palpable pulses. Lumbar-no significant tenderness to palpation noted in the lumbar spine and paraspinal musculature.? Pain is elicited with extension, and lateral rotation of the lumbar spine. Range of motion is slightly diminished with these motions due to pain. Coordination remains intact.? Gait remains non-antalgic. Assessment and Plan Assessment and Plan (1) Lumbar stenosis with neurogenic claudication: (2) Lumbar postlaminectomy syndrome: (3) Knee osteoarthritis: Qualifiers: Osteoarthritis type: primary Laterality: bilateral Qualified Code(s): M17.0 - Bilateral primary osteoarthritis of knee Plan 59yof who presents for assessment. continues to have low back, bilateral knee pain. would like a referral for knee surgeon, so placed new order for this. meds reviewed. will continue percocet and tizanidine as before. will order aquatherapy, as well. follow up in 3 months or sooner, if needed.
== END 2025-03-02 13:36 | disposition home or self-care (01) ==
LOC: PM 13:35
PROVIDERS: Visit Provider Anesthesiology
DX: M48.062 Spinal stenosis, lumbar region with neurogenic claudication (principal); M96.1 Postlaminectomy syndrome, not elsewhere classified; M17.0 Bilateral primary osteoarthritis of knee
CPT/HCPCS: G0463